=== PATIENT | male | born 1945 | race African-American/Black ===

== ENCOUNTER 2017-11-05 15:54 | Emergency (ER) | payer OTHER ==
--- OUTSIDE RECORDS SUMMARY | 2017-11-05 15:56 | XMS REPORT | Clinical Summary ---
:1945 Author Organization [facility] Address [address] [place] [address] Care Team Providers Name Role Phone Asked, No Pcp Primary Care Provider Unavailable Allergies No Known Allergies Current Medications Prescription Sig. Disp. Refills Start Date End Date Status levothyroxine Take 88 mcg by Active (SYNTHROID, mouth every LEVOTHROID) 88 MCG morning. tablet colestipol (COLESTID) Take 1 g by Active 1 gram tablet mouth 2 (two) times a day. carvedilol (COREG) Take 12.5 mg by Active 12.5 MG tablet mouth 2 (two) times a day with meals. doxazosin (CARDURA) 4 Take 4 mg by Active MG tablet mouth nightly. amLODIPine (NORVASC) Take 10 mg by Active 10 MG tablet mouth daily. atorvastatin (LIPITOR) Take 40 mg by Active 40 MG tablet mouth daily. aspirin (ECOTRIN) 81 Take 81 mg by Active MG enteric coated mouth daily. tablet sodium polystyrene Take 1 Package Active sulfonate 15 gram by mouth 2 powder in packet (two) times a week. esomeprazole (NexIUM) Take 40 mg by Active 40 MG capsule mouth daily before breakfast. insulin ASPART Inject under Active (NovoLOG) 100 unit/mL the skin 2 injection (two) times a day before meals. cholecalciferol, Take 1,000 Active vitamin D3, (VITAMIN Units by mouth D3) 1,000 unit tablet daily. iron-vitamin C 65 mg Take 1 tablet Active iron- 125 mg by mouth daily. tablet,delayed release (DR/EC) brinzolamide-brimonidi Apply 1 drop to Active ne (SIMBRINZA) 1-0.2 % eye 2 (two) drops,suspension times a day. methotrexate 2.5 MG Take 1 tablet 78 tablet 1 08/20/2016 11/18/2016 tablet (2.5 mg total) by mouth once a week for 90 days. Active Problems Problem Noted Date Systemic lupus erythematosus Last Assessment & Plan: Mr. 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 He has been stable on his current regimen for many many years now. I really think the biggest problem that he will encounter is his poorly-controlled diabetes mellitus. I see no evidence of significant lupus activity currently. He knows to get labs every 3 months because of the methotrexate. 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, bilateral Hypertension GERD without esophagitis Hypothyroidism Family History Medical History Relation Name Comments No Known Problems Brother Lupus Brother Hypertension Father Diabetes Mother Lupus Sister No Known Problems Sister No Known Problems Sister No Known Problems Sister Relation Name Status Comments Brother Alive Brother Brother Alive Father Mother Sister Alive Sister Alive Sister Alive Sister Alive Social History Tobacco Use Types Packs/Day Years Used Date Never Smoker Alcohol Use Drinks/Week oz/Week Comments No Sex Assigned at Date Recorded Not on file Last Filed Vital Signs Not on file Plan of Treatment Health Maintenance Due Date Last Done Comments FOOT EXAM 1954 OPHTHALMOLOGY EXAM 1954 URINE MICROALBUMIN 1954 COLONOSCOPY 1994 ZOSTER VACCINE 2004 PNEUMOCOCCAL POLYSACCHARIDE VACCINE AGE 65 AND OVER 2009 PNEUMOCOCCAL-13 2009 INFLUENZA VACCINE 03/02/2018 Results Not on fileafter 11/04/2016 Insurance Payer Benefit Plan / Group Subscriber ID Type Phone Address MEDICARE MEDICARE PART A AND B xxxxxxxxxx Medicare [place], [place] AETNA AETNA HMO,POS,EPO, MC/EC xxxxxxxxxx HMO Home: [address] [employer] [phone] [place], [place] [address]
[2017-11-05 16:35] LABS: Absolute Lymphocytes (CBC) 1.9 K/uL (0.7-4.9); Absolute Monocytes 0.6 K/uL (0.1-1.3); Absolute Neutrophil 2.3 K/uL (1.8-8.0); Basophils % 0.9 % (0-1.3); Eosinophils % 3.8 % (0-4.4); Hematocrit 28.5 % (39.6-49.0); Lymphocytes % 37.3 % (15.3-44.8); MCH 29.2 pg (27.0-35.0); MCV 94.8 fL (80-100); MPV 11.4 fL (7.6-11.3); RBC Red Blood Cell Count 3.01 M/uL (4.33-5.43)
[2017-11-05 16:40] LABS: Protime INR 0.96
[2017-11-05 17:04] LABS: Albumin 3.7 g/dL (3.2-5.5); Bilirubin Direct 0.2 mg/dL (0-0.2); Bilirubin Total 0.7 mg/dL (0.3-1.2); Protein, Total 7.5 g/dL (6.0-8.3)
[2017-11-05 17:13] LABS: Potassium 5.5 mEq/L (3.6-5.0)
--- NOTE | 2017-11-05 18:24 | EKG ---
Test Date: 2017-11-05 Test Time: 16:30:08 Hand Cell Tuber: AGUS MEASUREMENT RESULTS: Intervals: Rate: 57 SD: 192 QRSD: 86 QT: 452 QTc: 439 [place]: P: 59 SD: 192 QRS: -2 T: 37 INTERPRETIVE STATEMENTS: Sinus bradycardia with sinus arrhythmia Possible Left atrial enlargement Nonspecific T wave abnormality Abnormal ECG Compared to ECG 07/08/2014 06:24:26 Sinus rhythm no longer present Possible ischemia no longer present T-wave abnormality still present Electronically Signed On 11-05-17 18:23:55 CDT by Diego Oliveira
[2017-11-05] MEDS ORDERED: INSULIN -REGULAR HUMAN 50 UNIT/0.5 ML ML ONE (18:42)
[2017-11-05] MEDS ORDERED: ALBUTEROL 2.5 MG/3 ML NEB SOL ONE (18:42)
[2017-11-05] MEDS ORDERED: NA CHLORIDE 0.9% 1,000 ML ONE (18:43)
[2017-11-05] MEDS ORDERED: SOD POLYSTYREN SUL 15 GM/60 ML UCUP ONE (18:43)
[2017-11-05] MEDS ORDERED: NA CHLORIDE 0.9% 250 ML ONE (18:43)
[2017-11-05] MEDS ORDERED: D50W 25 GM/50 ML SYRINGE IV ONE ×2 (18:43→20:24)
--- NOTE | 2017-11-05 20:26 | ER ---
Nurse's Notes [facility] Name: Jozef Carbajal Age: 72 yrs Sex: Male : 1945 Arrival Date: 11/05/2017 Time: 15:56 Bed 30 Private MD: Diagnosis: Hyperkalemia Presentation: 11/05 16:02 Presenting complaint: Patient states: We went to Dr Vanessa and he did some labs la1 yesterday, they called and said to come to the ER because my potassium was very high. Transition of care: patient was not received from another setting of care. Onset of symptoms was November 05, 2017. Care prior to arrival: None. 16:02 Method Of Arrival: Wheelchair la1 16:02 Acuity: CARLOS MANUEL 3 la1 Historical: - Allergies: 16:03 No Known Allergies; la1 - PMHx: 16:03 Renal Disease; Hypertension; Lupus; Diabetes - NIDDM; la1 - Immunization history:: Adult Immunizations up to date. - Social history:: Smoking status: Patient/guardian denies using tobacco. Screenin:44 Abuse screen: Denies threats or abuse. Nutritional screening: No deficits noted. kb1 Tuberculosis screening: No symptoms or risk factors identified. Fall Risk IV access (20 points). Assessment: 16:44 Reassessment: Pt reports going to Dr. foster for routine checkup, was called and told kbRyan that he needed to come to ER for high potassium. General: Appears in no apparent distress. Behavior is calm, cooperative. Pain: Denies pain. Neuro: Level of Consciousness is awake, alert, obeys commands, Oriented to person, place, time, situation. Cardiovascular: Patient's skin is warm and dry. Respiratory: Airway is patent Respiratory effort is even, unlabored, Respiratory pattern is regular, symmetrical. GI: Abdomen is round. : No signs and/or symptoms were reported regarding the genitourinary system. 17:40 Reassessment: Patient appears in no apparent distress at this time. Patient and/or kb1 family updated on plan of care and expected duration. Pain level reassessed. Patient is alert, oriented x 3, equal unlabored respirations, skin warm/dry/pink. Kinta provided. 18:49 Reassessment: Patient appears in no apparent distress at this time. Patient and/or kb1 family updated on plan of care and expected duration. Pain level reassessed. Patient is alert, oriented x 3, equal unlabored respirations, skin warm/dry/pink. 20:01 Reassessment: Patient appears in no apparent distress at this time. Patient and/or kb1 family updated on plan of care and expected duration. Pain level reassessed. Patient is alert, oriented x 3, equal unlabored respirations, skin warm/dry/pink. 20:52 Reassessment: Patient appears in no apparent distress at this time. Patient and/or kb1 family updated on plan of care and expected duration. Pain level reassessed. Patient is alert, oriented x 3, equal unlabored respirations, skin warm/dry/pink. Patient states feeling better. Vital Signs: 16:03 BP 171 / 72; Pulse 67; Resp 16; Temp 97.6(TE); Pulse Ox 100% on R/A; Weight 87.09 kg; la1 Height 6 ft. 0 in. (182.88 cm); 17:00 BP 153 / 74; Pulse 50; Resp 18; Pulse Ox 100% ; kb1 18:00 BP 142 / 62; Pulse 45; Resp 20; Pulse Ox 100% ; kb1 20:02 BP 168 / 82; Pulse 43; Resp 18; Pulse Ox 96% ; kb1 20:08 kb1 20:52 BP 118 / 66; Pulse 55; Resp 18; Pulse Ox 100% ; kb1 16:03 Body Mass Index 26.04 (87.09 kg, 182.88 cm) la1 20:08 Blaise BENNETT notified of HR and BG kb1 ED Course: 15:56 Patient arrived in ED. as 16:03 Triage completed. la1 16:03 Arm band placed on right wrist. la1 16:05 Blaise Sylvester PA is PHCP. cp 16:05 Blaise Chung MD is Attending Physician. cp 16:08 Reshma Oliver RN is Primary Nurse. kb1 16:44 Patient has correct armband on for positive identification. Placed in gown. Bed in low kb1 position. Call light in reach. Side rails up X 1. playground monitor on. Pulse ox on. NIBP on. 16:44 No provider procedures requiring assistance completed. Inserted saline lock: 20 gauge kb1 in right antecubital area, using aseptic technique. Blood collected. 20:23 Justin Vanessa MD is Referral Physician. cp 20:53 IV discontinued, intact, bleeding controlled, No redness/swelling at site. Pressure kb1 dressing applied. Administered Medications: 18:30 Drug: NS 0.9% 250 ml Route: IV; Rate: bolus; Site: right antecubital; kb1 18:32 Drug: D50W 50 ml Route: IVP; Site: right antecubital; kb1 20:55 Follow up: Response: No adverse reaction kb1 18:41 Drug: Albuterol 2.5 mg Route: Inhalation; kb1 18:42 Drug: Insulin Regular Human 10 units {Co-Signature: ss (Arlene Espitia RN).} Route: IVP; kb1 Site: right antecubital; 20:55 Follow up: Response: No adverse reaction kb1 18:42 Drug: Kayexalate 30 grams Route: PO; kb1 20:55 Follow up: Response: Marked relief of symptoms kb1 18:42 Drug: NS 0.9% 1000 ml Route: IV; Rate: 100 ml/hr; Site: right antecubital; kb1 20:09 Drug: D50W 50 ml Route: IVP; Site: right antecubital; kb1 20:53 Follow up: Response: Blood sugar is elevated kb1 Point of Care Testing: Blood Glucose: 20:04 Blood Glucose: 46 mg/dL; dh3 20:52 Blood Glucose: 117 mg/dL; kb1 20:52 Blaise BENNETT notified of BG kb1 Ranges: Outcome: 20:25 Discharge ordered by MD. cp 20:54 Discharged to home ambulatory, with family. kb1 20:54 Condition: stable 20:54 Discharge instructions given to patient, family, Instructed on discharge instructions, follow up and referral plans. Demonstrated understanding of instructions, follow-up care. 20:56 Patient left the ED. kb1 Signatures: Kyra Hanks Lee RN RN la1 Blaise Sylvester PA PA cp Herrera, Deanna 3 Reshma Oliver RN RN kb1 Arlene Espitia RN ss Corrections: (The following items were deleted from the chart) 20:55 08:30 NS 0.9% 250 ml IV at bolus in right antecubital kb1 kb1
--- NOTE | 2017-11-05 20:26 | EDPHYS ---
Physician Documentation [facility] Name: Jozef Carbajal Age: 72 yrs Sex: Male : 1945 Arrival Date: 11/05/2017 Time: 15:56 Bed 30 Private MD: Blaise Conway HPI: 11/05 16:10 This 72 yrs old Black Male presents to ER via Wheelchair with complaints of Abnormal cp Lab Results. 16:10 elevated potassium. reports having labs drawn by office of DR Vanessa and being told cp potassium level was elevated. No complaints expressed. Historical: - Allergies: 16:03 No Known Allergies; la1 - PMHx: 16:03 Renal Disease; Hypertension; Lupus; Diabetes - NIDDM; la1 - Immunization history:: Adult Immunizations up to date. - Social history:: Smoking status: Patient/guardian denies using tobacco. ROS: 16:20 Constitutional: Negative for body aches, chills, fever, poor PO intake. cp 16:20 Eyes: Negative for injury, pain, redness, and discharge. cp 16:20 ENT: Negative for drainage from ear(s), ear pain, sore throat, difficulty swallowing, difficulty handling secretions. 16:20 Cardiovascular: Negative for chest pain, edema, palpitations. 16:20 Respiratory: Negative for cough, shortness of breath, wheezing. 16:20 Abdomen/GI: Negative for abdominal pain, nausea, vomiting, and diarrhea, constipation, anorexia, black/tarry stool, rectal bleeding. 16:20 Skin: Negative for cellulitis, rash. 16:20 Neuro: Negative for altered mental status, headache, numbness, seizure activity, syncope, near syncope, weakness. 16:20 All other systems are negative. Exam: 16:25 Constitutional: The patient appears in no acute distress, alert, awake, cp non-diaphoretic, non-toxic, well developed, well nourished. 16:25 Head/Face: Normocephalic, atraumatic. cp 16:25 Eyes: Periorbital structures: appear normal, Pupils: equal, round, and reactive to light and accomodation, Extraocular movements: intact throughout, Conjunctiva: normal, no exudate, no injection, Sclera: no appreciated abnormality, Lids and lashes: appear normal, bilaterally. 16:25 ENT: External ear(s): are unremarkable, Ear canal(s): are normal, clear, TM's: dullness, bilaterally, Nose: is normal, Mouth: Lips: moist, Oral mucosa: pink and intact, moist, Posterior pharynx: Airway: no evidence of obstruction, patent, Tonsils: are normal in appearance, Uvula: midline, swelling, is not appreciated, erythema, is not appreciated, exudate, is not appreciated, Voice: is normal. 16:25 Neck: ROM/movement: is normal, is supple, without pain, no range of motions limitations, no nuchal rigidity. 16:25 Chest/axilla: Inspection: normal, Palpation: is normal, no crepitus, no tenderness. 16:25 Cardiovascular: Rate: normal, Rhythm: regular, Edema: is not appreciated, JVD: is not appreciated. 16:25 Respiratory: the patient does not display signs of respiratory distress, Respirations: normal, no use of accessory muscles, no retractions, no splinting, no tachypnea, labored breathing, is not present, Breath sounds: are clear throughout, no decreased breath sounds, no stridor, no wheezing. 16:25 Abdomen/GI: Inspection: abdomen appears normal, Bowel sounds: active, all quadrants, Palpation: abdomen is soft and non-tender, in all quadrants, rebound tenderness, is not appreciated, voluntary guarding, is not appreciated, involuntary guarding, is not appreciated. 16:25 Back: pain, is absent, ROM is normal. 16:25 Skin: cellulitis, is not appreciated, no rash present. 16:25 Neuro: Orientation: to person, place \T\ time. Mentation: is normal, Cerebellar function: is grossly normal, Motor: moves all fours, strength is normal, Sensation: no obvious gross deficits. 16:35 ECG was reviewed by the Attending Physician. cp Vital Signs: 16:03 BP 171 / 72; Pulse 67; Resp 16; Temp 97.6(TE); Pulse Ox 100% on R/A; Weight 87.09 kg; la1 Height 6 ft. 0 in. (182.88 cm); 17:00 BP 153 / 74; Pulse 50; Resp 18; Pulse Ox 100% ; kb1 18:00 BP 142 / 62; Pulse 45; Resp 20; Pulse Ox 100% ; kb1 20:02 BP 168 / 82; Pulse 43; Resp 18; Pulse Ox 96% ; kb1 20:08 kb1 20:52 BP 118 / 66; Pulse 55; Resp 18; Pulse Ox 100% ; kb1 16:03 Body Mass Index 26.04 (87.09 kg, 182.88 cm) la1 20:08 Blaise BENNETT notified of HR and BG kb1 MDM: 16:05 Patient medically screened. cp 17:00 Differential Diagnosis electrolyte abnormality, cardiac arrythmia, ESRD. cp 20:23 Data reviewed: vital signs, nurses notes, lab test result(s), EKG, radiologic studies, cp and as a result, I will discharge patient. 20:23 Test interpretation: by ED physician or midlevel provider: ECG. cp 20:23 Response to treatment: Improved. cp 20:23 Counseling: I had a detailed discussion with the patient and/or guardian regarding: the cp historical points, exam findings, and any diagnostic results supporting the discharge/admit diagnosis, lab results, the need for outpatient follow up, an clinical engineer, to return to the emergency department if symptoms worsen or persist or if there are any questions or concerns that arise at home. 11/05 16:15 Order name: Basic Metabolic Panel; Complete Time: 17:14 cp 11/05 17:14 Interpretation: Normal except: GLUC 134; BUN 59; CRE 3.21; GFR 23; K 5.5. cp 11/05 16:15 Order name: CBC with Diff; Complete Time: 16:58 cp 11/05 16:58 Interpretation: Normal except: RBC 3.01; HGB 8.8; HCT 28.5; MCHC 30.8; RDW 17.1; MPV cp 11.4. 11/05 16:15 Order name: LFT's; Complete Time: 17:14 cp 11/05 17:07 Interpretation: Normal except: GLOB 3.8; A/G 1.0. cp 11/05 16:15 Order name: Magnesium; Complete Time: 17:14 cp 11/05 16:15 Order name: PT-INR; Complete Time: 16:58 cp 11/05 20:13 Interpretation: Reviewed. cp 11/05 16:15 Order name: Ptt, Activated; Complete Time: 16:58 cp 11/05 19:35 Order name: Potassium cp 11/05 19:35 Order name: Potassium; Complete Time: 20:21 EDMS 11/05 20:22 Interpretation: Within normal limits: K 4.7. cp 11/05 20:05 Order name: Glucose, Ancillary Testing; Complete Time: 20:13 EDMS 11/05 20:13 Interpretation: GLUC,ANCIL 46; Reviewed. cp 11/05 20:50 Order name: Glucose, Ancillary Testing EDMS 11/05 16:06 Order name: EKG; Complete Time: 16:06 cp 11/05 16:06 Order name: EKG - Nurse/Tech; Complete Time: 16:51 cp 11/05 16:15 Order name: Cardiac monitoring; Complete Time: 16:51 cp 11/05 16:15 Order name: IV Saline Lock; Complete Time: 16:51 cp 11/05 16:15 Order name: Labs collected and sent; Complete Time: 16:51 cp 11/05 16:15 Order name: O2 Per Protocol; Complete Time: 16:51 cp 11/05 16:15 Order name: O2 Sat Monitoring; Complete Time: 16:51 cp EC:35 Rate is 57 beats/min. Rhythm is regular. KS interval is normal. QRS interval is normal. cp QT interval is normal. T waves are Inverted in leads II, III, aVF, V5, V6. No ST changes noted. Interpreted by me. Reviewed by me. Administered Medications: 18:30 Drug: NS 0.9% 250 ml Route: IV; Rate: bolus; Site: right antecubital; [facility] 18:32 Drug: D50W 50 ml Route: IVP; Site: right antecubital; [facility] 20:55 Follow up: Response: No adverse reaction kb1 18:41 Drug: Albuterol 2.5 mg Route: Inhalation; kb1 18:42 Drug: Insulin Regular Human 10 units {Co-Signature: ss (Arlene Espitia RN).} Route: IVP; [facility] Site: right antecubital; 20:55 Follow up: Response: No adverse reaction kb1 18:42 Drug: Kayexalate 30 grams Route: PO; kb1 20:55 Follow up: Response: Marked relief of symptoms [facility] 18:42 Drug: NS 0.9% 1000 ml Route: IV; Rate: 100 ml/hr; Site: right antecubital; kb1 20:09 Drug: D50W 50 ml Route: IVP; Site: right antecubital; kb1 20:53 Follow up: Response: Blood sugar is elevated kb1 Point of Care Testing: Blood Glucose: 20:04 Blood Glucose: 46 mg/dL; dh3 20:52 Blood Glucose: 117 mg/dL; kb1 20:52 Blaise BENNETT notified of BG kb1 Ranges: Critical Glucose Levels:Adult <50 mg/dl or >400 mg/dl <40 mg/dl or >180 mg/dl Disposition: 11/05/17 20:25 Discharged to Home. Impression: Hyperkalemia. - Condition is Stable. - Discharge Instructions: Hyperkalemia. - Medication Reconciliation Form, Thank You Letter, Antibiotic Education, Prescription Opioid Use form. - Follow up: Justin Vanessa MD; When: 11-08-2017, recheck serum potassium; Reason: Recheck today's complaints. - Problem is new. - Symptoms have improved. Addendum: 11/08/2017 08:38 Co-signature as Attending Physician, Blaise Chung MD I agree with the assessment and c reina plan of care. Signatures: Dispatcher [employer] EDIA Blaise Chung MD MD cha Attema, Lee, RN RN la1 Blaise Sylvester PA PA cp Reshma Oliver RN RN kb1 Arlene Espitia RN ss Corrections: (The following items were deleted from the chart) 11/05 17:14 17:06 Normal except: GLUC 134; BUN 59; CRE 3.21; GFR 23. cp cp
[2017-11-05 21:04] VITALS: TEMP 97.6
[2017-11-05 21:09] VITALS: BP 118/66; O2SAT 100
== END 2017-11-05 20:56 | disposition home or self-care (01) ==
LOC: ER 15:54
DX: E87.5 Hyperkalemia (principal); I10 Essential (primary) hypertension; E11.9 Type 2 diabetes mellitus without complications
CPT/HCPCS: 36415; 80048; 80076; 82962 ×2; 83735; 84132; 85025; 85610; 85730; 93005; 96374; 96375; 99285; J7030

== ENCOUNTER 2017-12-26 09:30 | Emergency (ER) | payer OTHER ==
--- OUTSIDE RECORDS SUMMARY | 2017-12-26 09:31 | XMS REPORT | Clinical Summary ---
:1945 Author Organization [facility] Address [address] [place] [address] Care Team Providers Name Role Phone Asked, No Pcp Primary Care Provider Unavailable Allergies No Known Allergies Current Medications Prescription Sig. Disp. Refills Start Date End Date Status levothyroxine (SYNTHROID, Take 88 mcg by Active LEVOTHROID) 88 MCG tablet mouth every morning. colestipol (COLESTID) 1 Take 1 g by mouth 2 Active gram tablet (two) times a day. carvedilol (COREG) 12.5 Take 12.5 mg by Active MG tablet mouth 2 (two) times a day with meals. doxazosin (CARDURA) 4 MG Take 4 mg by mouth Active tablet nightly. amLODIPine (NORVASC) 10 Take 10 mg by mouth Active MG tablet daily. atorvastatin (LIPITOR) 40 Take 40 mg by mouth Active MG tablet daily. aspirin (ECOTRIN) 81 MG Take 81 mg by mouth Active enteric coated tablet daily. sodium polystyrene Take 1 Package by Active sulfonate 15 gram powder mouth 2 (two) times in packet a week. esomeprazole (NexIUM) 40 Take 40 mg by mouth Active MG capsule daily before breakfast. insulin ASPART (NovoLOG) Inject under the Active 100 unit/mL injection skin 2 (two) times a day before meals. cholecalciferol, vitamin Take 1,000 Units by Active D3, (VITAMIN D3) 1,000 mouth daily. unit tablet iron-vitamin C 65 mg Take 1 tablet by Active iron- 125 mg mouth daily. tablet,delayed release (DR/EC) brinzolamide-brimonidine Apply 1 drop to eye Active (SIMBRINZA) 1-0.2 % 2 (two) times a drops,suspension day. Active Problems Problem Noted Date Systemic lupus [...] Health Maintenance Due Date Last Done Comments DIABETIC FOOT EXAM 1954 DIABETIC RETINAL EYE EXAM 1954 URINE MICROALBUMIN 1954 COLON CANCER SCREENING 1994 SHINGRIX VACCINE (#1) 1994 ZOSTER VACCINE 2004 PNEUMOCOCCAL POLYSACCHARIDE VACCINE AGE 65 AND OVER 2009 PNEUMOCOCCAL-13 2009 INFLUENZA VACCINE 03/02/2018 Results Not on fileafter 12/25/2016 Insurance Payer Benefit Plan / Group Subscriber ID Type Phone Address MEDICARE MEDICARE PART A AND B xxxxxxxxxx Medicare [place], [place] AETNA AETNA HMO,POS,EPO, MC/EC xxxxxxxxxx HMO Home: [address] [employer] [phone] [place], [place] [id number]
[2017-12-26 11:01] LABS: Absolute Lymphocytes (CBC) 1.4 K/uL (0.7-4.9); Absolute Monocytes 0.3 K/uL (0.1-1.3); Absolute Neutrophil 3.4 K/uL (1.8-8.0); Basophils % 0.2 % (0-1.3); Eosinophils % 3.3 % (0-4.4); Hematocrit 23.4 % (39.6-49.0); Lymphocytes % 27.5 % (15.3-44.8); MCH 29.9 pg (27.0-35.0); MCV 94.8 fL (80-100); MPV 11.2 fL (7.6-11.3); Monocytes % 4.8 % (3.3-12.3); RBC Red Blood Cell Count 2.47 M/uL (4.33-5.43)
[2017-12-26 11:29] LABS: Anisocytosis 1+; Blood Morphology Comment NOTED (NOT SEEN); Hypochromasia 1+; Ovalocytes SLIGHT; Platelet Estimate DECR; Urine White Blood Cell Casts OK
--- NOTE | 2017-12-26 11:36 | RAD REPORT ---
EXAM DESCRIPTION: RAD - Foot Left 3 View - 12/26/2017 10:59 am CLINICAL HISTORY: Diabetic patient, soft tissue wound COMPARISON: None. FINDINGS: No acute or destructive bone process. No evidence for osteomyelitis though this can exist prior to radiographic bone destruction. No fracture, dislocation or periosteal reaction. Patient has a flattened plantar arch but no Charcot joint changes. At the first toe wound site there is no air or foreign body. IMPRESSION: No air or foreign body in the soft tissues. No acute or destructive bone finding.
--- NOTE | 2017-12-26 12:15 | ER ---
Nurse's Notes [facility] Name: Jozef Carbajal Age: 72 yrs Sex: Male : 1945 Arrival Date: 12/26/2017 Time: 09:33 Bed 20 Private MD: Justin Vanessa C Diagnosis: Cellulitis of left toe;Anemia in chronic kidney disease Presentation: 12/26 10:01 Presenting complaint: Patient states: pulled some skin off the bottom of his left big em toe about a week ago, started bleeding 3 days ago, denies fever. Transition of care: patient was not received from another setting of care. Onset of symptoms was December 23, 2017. Risk Assessment: Do you want to hurt yourself or someone else? Patient reports no desire to harm self or others. Care prior to arrival: None. 10:01 Method Of Arrival: Wheelchair em 10:01 Acuity: CARLOS MANUEL 3 iw 10:01 Initial Sepsis Screen: Does the patient meet any 2 criteria? No. Patient's initial iw sepsis screen is negative. Does the patient have a suspected source of infection? No. Patient's initial sepsis screen is negative. Historical: - Allergies: 10:04 No Known Allergies; em - Home Meds: 10:16 levothyroxine 88 mcg tab 1 tab once daily [Active]; methotrexate sodium 2.5 mg Oral tab em [Active]; doxazosin 4 mg oral tab 2 tabs once daily [Active]; folic acid 1 mg Oral tab 1 tab once daily [Active]; carvedilol 3.125 mg oral tab 1 tab 2 times per day [Active]; aspirin 81 mg Oral TbEC 1 tab once daily [Active]; atorvastatin 20 mg oral tab 1 tab once daily [Active]; hydralazine 10 mg Oral tab [Active]; - PMHx: 10:04 Diabetes - NIDDM; Hypertension; Lupus; Renal Disease; em 10:21 Anemia; Hypothyroidism; em - PSHx: 10:04 Cholecystectomy; em - Immunization history:: Adult Immunizations up to date. - Social history:: Smoking status: Patient/guardian denies using tobacco. - Ebola Screening: : Ebola Screening: No symptoms or risks identified at this time. Screenin:06 Abuse screen: Denies threats or abuse. Nutritional screening: No deficits noted. em Tuberculosis screening: No symptoms or risk factors identified. Fall Risk None identified. Assessment: 10:07 General: Appears in no apparent distress. comfortable, Behavior is calm, cooperative. em Pain: Complains of pain in plantar aspect of left first toe Pain currently is 2 out of 10 on a pain scale. Neuro: Level of Consciousness is awake, alert, obeys commands, Oriented to person, place, time, situation. Cardiovascular: Capillary refill < 3 seconds Patient's skin is warm and dry. Respiratory: Airway is patent Respiratory effort is even, unlabored, Respiratory pattern is regular, symmetrical. GI: Abdomen is flat. : No signs and/or symptoms were reported regarding the genitourinary system. EENT:. Derm: Wound noted plantar aspect of left first toe. Musculoskeletal: Range of motion: intact in all extremities. 10:20 Reassessment: Patient appears in no apparent distress at this time. I agree with above iw assessment by Robert Esteves LVN. 11:00 Reassessment: Patient appears in no apparent distress at this time. Patient and/or em family updated on plan of care and expected duration. Pain level reassessed. Patient is alert, oriented x 3, equal unlabored respirations, skin warm/dry/pink. 12:00 Reassessment: Patient appears in no apparent distress at this time. Patient and/or em family updated on plan of care and expected duration. Pain level reassessed. Patient is alert, oriented x 3, equal unlabored respirations, skin warm/dry/pink. toe soaked and cleaned with chlorhexidine, tolerated well, dressed with 4 x 4. 12:48 Reassessment: Patient appears in no apparent distress at this time. Patient and/or em family updated on plan of care and expected duration. Pain level reassessed. Patient is alert, oriented x 3, equal unlabored respirations, skin warm/dry/pink. orthostatics completed, tolerated well. Vital Signs: 10:04 BP 151 / 76; Pulse 74; Resp 16; Temp 99.0(O); Pulse Ox 100% on R/A; Weight 87.54 kg; em Height 6 ft. 0 in. (182.88 cm); Pain 2/10; 11:00 BP 167 / 55; Pulse 65; Resp 17; Pulse Ox 98% on R/A; em 11:29 BP 166 / 69; Pulse 51; Resp 17; Pulse Ox 100% on R/A; tw2 12:53 BP 161 / 76 Supine; Pulse 54; em 12:53 BP 181 / 58 Sitting; Pulse 64; em 12:53 BP 165 / 51 Standing; Pulse 62; em 10:04 Body Mass Index 26.18 (87.54 kg, 182.88 cm) em ED Course: 09:33 Patient arrived in ED. mr 09:34 Justin Vanessa MD is Private Physician. mr 09:55 Blaise Sylvester PA is PHCP. cp 09:55 Jacobo Milton MD is Attending Physician. cp 10:01 Robert Esteves LVN is Primary Nurse. em 10:05 Patient has correct armband on for positive identification. Bed in low position. Call em light in reach. Adult w/ patient. 10:09 Arm band placed on. em 10:20 Triage completed. iw 10:31 Initial lab(s) drawn, by me, sent to lab. Inserted saline lock: 22 gauge in left 5 antecubital area, using aseptic technique. Blood collected. 10:32 Placed in gown. Warm blanket given. Pulse ox on. NIBP on. 5 10:59 XRAY Foot LEFT 3 View In Process Unspecified. EDMS 12:13 Justin Vanessa MD is Referral Physician. cp 12:19 Repeat lab(s) drawn. by me. 5 12:21 CXR XRAY In Process Unspecified. EDMS 13:11 No provider procedures requiring assistance completed. IV discontinued, intact, em bleeding controlled, No redness/swelling at site. Pressure dressing applied. Administered Medications: No medications were administered Outcome: 12:15 Discharge ordered by MD. cp 13:12 Discharged to home ambulatory. em 13:12 Condition: good 13:12 Discharge instructions given to patient, family, Instructed on discharge instructions, follow up and referral plans. medication usage, Demonstrated understanding of instructions, follow-up care, medications, Prescriptions given X 2. 13:13 Patient left the ED. em Signatures: Dispatcher [employer] EDRI Samara Delarosa EstevesRobert, JOMAR NAYAKN em Merline Cotton RN RN Blaise Sylvester PA PA cp Wise, Tara, RN RN [facility] Samara Hanks [facility] Corrections: (The following items were deleted from the chart) 10:06 10:01 Presenting complaint: Patient states: pulled some skin off the bottom of his left em toe about a week ago, started bleeding 3 days ago, denies fever em
--- NOTE | 2017-12-26 12:15 | EDPHYS ---
Physician Documentation [facility] Name: Jozef Carbajal Age: 72 yrs Sex: Male : 1945 Arrival Date: 12/26/2017 Time: 09:33 Bed 20 Private MD: Justin Vanessa C ED Physician Jacobo Milton HPI: 12/26 10:15 This 72 yrs old Black Male presents to ER via Wheelchair with complaints of Foot Pain. cp 10:15 The patient presents with pain, that is acute. The complaints affect the plantar aspect cp of left first toe. Onset: The symptoms/episode began/occurred 1 week(s) ago. 10:15 Associated signs and symptoms: Pertinent negatives calf tenderness, fever, numbness, cp drainage. 10:15 Treatment prior to arrival includes: no previous treatment. Severity of symptoms: in cp the emergency department the symptoms are unchanged, despite home interventions. Historical: - Allergies: 10:04 No Known Allergies; em - Home Meds: 10:16 levothyroxine 88 mcg tab 1 tab once daily [Active]; methotrexate sodium 2.5 mg Oral tab em [Active]; doxazosin 4 mg oral tab 2 tabs once daily [Active]; folic acid 1 mg Oral tab 1 tab once daily [Active]; carvedilol 3.125 mg oral tab 1 tab 2 times per day [Active]; aspirin 81 mg Oral TbEC 1 tab once daily [Active]; atorvastatin 20 mg oral tab 1 tab once daily [Active]; hydralazine 10 mg Oral tab [Active]; - PMHx: 10:04 Diabetes - NIDDM; Hypertension; Lupus; Renal Disease; em 10:21 Anemia; Hypothyroidism; em - PSHx: 10:04 Cholecystectomy; em - Immunization history:: Adult Immunizations up to date. - Social history:: Smoking status: Patient/guardian denies using tobacco. - Ebola Screening: : Ebola Screening: No symptoms or risks identified at this time. ROS: 10:20 Constitutional: Negative for body aches, chills, fever, poor PO intake. cp 10:20 Eyes: Negative for injury, pain, redness, and discharge. cp 10:20 ENT: Negative for drainage from ear(s), ear pain, sore throat, difficulty swallowing, difficulty handling secretions. 10:20 Cardiovascular: Negative for chest pain, edema, palpitations. 10:20 Respiratory: Negative for cough, shortness of breath, wheezing. 10:20 Abdomen/GI: Negative for abdominal pain, nausea, vomiting, and diarrhea, black/tarry stool, rectal bleeding. 10:20 MS/extremity: Positive for pain, swelling, tenderness, of the plantar aspect of left first toe. 10:20 Skin: Negative for rash. 10:20 Neuro: Negative for altered mental status, dizziness, headache, syncope, near syncope, weakness. 10:20 All other systems are negative. Exam: 10:28 Constitutional: The patient appears in no acute distress, alert, awake, non-toxic, well cp developed, well nourished. 10:28 Head/Face: Normocephalic, atraumatic. cp 10:28 Eyes: Periorbital structures: appear normal, Pupils: equal, round, and reactive to light and accomodation, Extraocular movements: intact throughout, Conjunctiva: normal, no exudate, no injection, Lids and lashes: appear normal, bilaterally. 10:28 ENT: External ear(s): are unremarkable, Ear canal(s): are normal, clear, TM's: bulging, is not appreciated, bilaterally, dullness, bilaterally, erythema, is not appreciated, bilaterally, Nose: is normal, Mouth: Lips: moist, Oral mucosa: pink and intact, moist, Posterior pharynx: is normal, airway is patent, no erythema, no exudate. 10:28 Neck: ROM/movement: is normal, is supple, without pain, no range of motions limitations, no meningismus, no nuchal rigidity. 10:28 Chest/axilla: Inspection: normal, Palpation: is normal, no crepitus, no tenderness. 10:28 Cardiovascular: Rate: normal, Rhythm: regular, Edema: is not appreciated, JVD: is not appreciated. 10:28 Respiratory: the patient does not display signs of respiratory distress, Respirations: normal, no use of accessory muscles, no retractions, no splinting, no tachypnea, labored breathing, is not present, Breath sounds: are clear throughout, no decreased breath sounds, no stridor, no wheezing. 10:28 Abdomen/GI: Inspection: abdomen appears normal, Bowel sounds: active, all quadrants, Palpation: abdomen is soft and non-tender, in all quadrants, rebound tenderness, is not appreciated, voluntary guarding, is not appreciated, involuntary guarding, is not appreciated. 10:28 Back: pain, is absent, ROM is normal. 10:28 Musculoskeletal/extremity: Extremities: grossly normal except: noted in the plantar aspect of left first toe: swelling, tenderness, noted pressure wound, Pulses: noted to be 1+ in the left dorsalis pedis artery, the left foot decreased sensation. Vital Signs: 10:04 BP 151 / 76; Pulse 74; Resp 16; Temp 99.0(O); Pulse Ox 100% on R/A; Weight 87.54 kg; em Height 6 ft. 0 in. (182.88 cm); Pain 2/10; 11:00 BP 167 / 55; Pulse 65; Resp 17; Pulse Ox 98% on R/A; em 11:29 BP 166 / 69; Pulse 51; Resp 17; Pulse Ox 100% on R/A; tw2 12:53 BP 161 / 76 Supine; Pulse 54; em 12:53 BP 181 / 58 Sitting; Pulse 64; em 12:53 BP 165 / 51 Standing; Pulse 62; em 10:04 Body Mass Index 26.18 (87.54 kg, 182.88 cm) em MDM: 09:55 Patient medically screened. 12:15 Data reviewed: vital signs, nurses notes, lab test result(s), radiologic studies, plain cp films, and as a result, I will discharge patient. 12:15 Test interpretation: by ED physician or midlevel provider: plain radiologic studies. 12/26 10:08 Order name: CBC with Diff; Complete Time: 12:02 12/26 11:13 Interpretation: Normal except: RBC 2.47; HGB 7.4; HCT 23.4; MCHC 31.6; PLT 59; RDW 19.2. 12/26 10:08 Order name: BMP; Complete Time: 11:07 12/26 11:13 Interpretation: Normal except: CL 117; CO2 19; BUN 62; CRE 3.49; GFR 21. 12/26 11:29 Order name: CBC Smear Scan; Complete Time: 12:02 EDIA 12/26 10:08 Order name: XRAY Foot LEFT 3 View; Complete Time: 12:02 cp 12/26 10:08 Order name: Wound Care: soak and clean foot wound; Complete Time: 11:46 cp 12/26 11:43 Order name: CXR XRAY; Complete Time: 12:37 cp 12/26 12:15 Order name: Orthostatics; Complete Time: 12:54 cp Administered Medications: No medications were administered Disposition: 12/26/17 12:15 Discharged to Home. Impression: Cellulitis of left toe, Anemia in chronic kidney disease. - Condition is Stable. - Discharge Instructions: Anemia, Nonspecific, Cellulitis. - Prescriptions for Augmentin 875- 125 mg Oral Tablet - take 1 tablet by ORAL route every 12 hours for 10 days; 20 tablet. ketoconazole 2 % Topical cream - apply 1 applicatorful by TOPICAL route 2 times per day As needed apply to groin area as directed; 30 gram. - Medication Reconciliation Form, Thank You Letter, Antibiotic Education, Prescription Opioid Use form. - Follow up: Justin Vanessa MD; When: 2 - 3 days; Reason: Recheck today's complaints. - Problem is new. - Symptoms are unchanged. Addendum: 01/03/2018 11:53 Co-signature as Attending Physician, Jacobo Milton MD Available for consultation at p s1 all times. . Signatures: Dispatcher [employer] EDIA Robert Esteves, LABORATORY INSPECTOR LABORATORY INSPECTOR em Blaise Sylvester PA PA cp Jacobo Milton MD MD ps1 Corrections: (The following items were deleted from the chart) 12/26 12:09 11:44 PTT, ACTIVATED+COAG.LAB.BRZ ordered. EDIA EDIA 12: 11:44 PROTIME (+INR)+COAG.LAB.BRZ ordered. EDIA EDIA 12: 11:44 TYPE AND SCREEN+BB.LAB.BRZ ordered. EDIA EDIA 13:13 12:15 12/26/2017 12:15 Discharged to Home. Impression: Cellulitis of left toe; Anemia em in chronic kidney disease. Condition is Stable. Forms are Medication Reconciliation Form, Thank You Letter, Antibiotic Education, Prescription Opioid Use. Follow up: Justin Vanessa; When: 2 - 3 days; Reason: Recheck today's complaints. Problem is new. Symptoms are unchanged. cp
--- NOTE | 2017-12-26 12:36 | RAD REPORT ---
EXAM DESCRIPTION: RAD - Chest Single View - 12/26/2017 12:21 pm CLINICAL HISTORY: Shortness of breath, anemia COMPARISON: July 2014 TECHNIQUE: AP portable chest image was obtained 1216 hours . FINDINGS: Mildly prominent interstitial markings are present similar to the comparison. No focal con solidation or mass. Cardiomegaly is present but acute failure or volume overload are not suspected. N o measurable pleural effusion and no pneumothorax. No gross bony abnormality seen. No acute aortic fi nding. Numerous soft tissue calcifications are present. IMPRESSION: Cardiomegaly is present new from prior imaging. Significant acute failure or volume over load are doubtful. Chronic interstitial lung disease not substantially different from comparison.
[2017-12-26 13:24] VITALS: TEMP 99
[2017-12-26 13:27] VITALS: O2SAT 100
[2017-12-26 13:28] VITALS: BP 165/51
== END 2017-12-26 13:13 | disposition home or self-care (01) ==
LOC: ER 09:30
DX: L03.032 Cellulitis of left toe (principal); N18.9 Chronic kidney disease, unspecified; D63.1 Anemia in chronic kidney disease; E11.9 Type 2 diabetes mellitus without complications; I10 Essential (primary) hypertension; E03.9 Hypothyroidism, unspecified
CPT/HCPCS: 36415; 71045; 80048; 85025; 99284

== ENCOUNTER 2018-01-25 18:01 | Observation (INO) | payer OTHER ==
--- OUTSIDE RECORDS SUMMARY | 2018-01-25 18:28 | XMS REPORT | Clinical Summary ---
:1945 Author Organization [facility] Address [address] [place] [address] Care Team Providers Name Role Phone Asked, [...] shoulders, bilateral Hypertension GERD without esophagitis Hypothyroidism Encounters Date Type Specialty Care Team Description 01/03/2018 Refill Rheumatology Juan Pablo Branham MD after 01/24/2017 Family History Medical History Relation Name Comments [...] INFLUENZA VACCINE 03/02/2018 Results Not on fileafter 01/24/2017 Insurance Payer Benefit Plan / Group Subscriber ID Type Phone Address MEDICARE MEDICARE PART A AND B xxxxxxxxxx Medicare [place], [place] AETNA AETNA HMO,POS,EPO, MC/EC xxxxxxxxxx HMO Home: [address] [phone] [place], [place] [id number]
[2018-01-25] MEDS ORDERED: GLUCAGON 1 MG/VIAL IM PRN (18:31)
[2018-01-25] MEDS ORDERED: D50W 25 GM/50 ML SYRINGE IV PRN (18:31)
[2018-01-25] MEDS ORDERED: DIPHENHYDRAMINE 25 MG TAB/CAP PO PRN (18:35)
[2018-01-25] MEDS ORDERED: ACETAMINOPHEN 500 MG TAB PO PRN (18:36)
[2018-01-25] MEDS ORDERED: NA CHLORIDE 0.9% 1,000 ML IV SCH (19:00)
[2018-01-25 19:04] LABS: RBC Red Blood Cell Count 2.12 M/uL (4.33-5.43)
[2018-01-25 19:48] LABS: Folic Acid, (Folate) > 20.0 ng/mL (3.1-17.5); Transferrin 134 mg/dL (200-360)
[2018-01-25] MEDS: INSULIN -REGULAR HUMAN 50 UNIT/0.5 ML ML SQ SCH (21:00)
[2018-01-25] MEDS: SOD POLYSTYREN SUL 15 GM/60 ML UCUP PO SCH (21:45)
[2018-01-25] MEDS ORDERED: NA CHLORIDE 0.9% 50 ML ONE (22:24)
[2018-01-26 00:24] VITALS: BMI 25.7
[2018-01-26 01:28] VITALS: O2SAT 100
[2018-01-26] MEDS ORDERED: FUROSEMIDE 40 MG/4 ML VIAL IV ONE (03:08)
[2018-01-26] MEDS ORDERED: AMLODIPINE 5 MG TAB PO ONE (03:09)
--- NOTE | 2018-01-26 04:46 | HP ---
Date of Admission: 01/25/2018 Chief Complaint: Anemia. History Of Present Illness: A 72-year-old male patient, who was seen yesterday at office for his rou ynes followup visit and his routine blood work was done on outpatient basis yesterday; results came b ack today with his hemoglobin 6.8, so patient was contacted requesting admission to the hospital. He came into office with his and, after results were discussed with both of them, decision was mad e to admit him to the hospital for blood transfusion. He denies any blood in stool. No vomiting, no diarrhea. Denies any chest pain or shortness of breath. He denies any change in bowel habits. Medications: Amlodipine 10 mg daily, aspirin 81 mg daily, atorvastatin 20 mg daily, carvedilol 6.25 mg 2 times a day, doxazosin 4 mg 2 times a day, ferrous sulfate 325 mg p.o. daily, folic acid 1 mg p. o. daily, hydralazine 10 mg p.o. 2 times a day, levothyroxine 88 mcg p.o. daily, Kayexalate 30 g powd er p.o. every other day, vitamin D3 2000 units daily. Review of Systems: Hematology: As mentioned above. All other systems reviewed and negative. Allergies: NO KNOWN ALLERGIES. 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 Past Surgical History: Significant for neck surgery and biopsy of fibrous tissue from the arm done a bout 15 years ago or so. Family History: Significant for hypertension and diabetes. Social History: Negative for smoking or alcohol use. Physical Examination: Vital Signs: Temperature 98.4, pulse 55 respiratory rate 16, blood pressure 144/67. General: Awake, alert, oriented, not in distress. HEENT: Head atraumatic, normocephalic. Conjunctivae nonerythematous. Sclerae white. Mouth, no thr ush or edema noted. Ears/Nose, no mass, lesion, discharge noted. Neck: Supple. No JVD, lymph nodes, bruit, thyromegaly noted. Lungs: Bilateral good equal air entry. Clear to auscultation. No rhonchi. No rales. Heart: Normal heart sounds, no murmur or gallop. Abdomen: Soft, bowel sounds normal. No guarding, rigidity, tenderness, mass, hepatosplenomegaly, dis tention, or bruit noted. Extremities: No leg edema. No calf tenderness. Skin: No rash, ulcer, cellulitis. Lymphatics: No lymph node enlargement in neck, supraclavicular, infraclavicular region. Neuro: No focal neurological deficit. Chest: Unremarkable. External Genitalia: Deferred. Rectal: Deferred. Laboratory Data: His percentage reticulocyte count done today is 0.97. Serum iron 24, TIBC 188, katie ritin 318, folic acid level more than 20, vitamin B12 620. Yesterday outpatient labs done; glucose 8 0, BUN 45, creatinine 3.15, sodium 144, potassium 5.2, chloride 113, bicarb 27, calcium 8.8, TSH 0.36 , white count 5.4, hemoglobin 6.8, platelets 94. Impression: 1.Anemia due to chronic kidney disease. 2.Thrombocytopenia. 3.Chronic kidney disease, stage 4 to stage 5. 4.Hypertension. 5.Mixed hyperlipidemia. 6.Diabetes mellitus, with chronic kidney disease. 7.Systemic lupus erythematosus. 8.Hypothyroidism. 9.Hyperkalemia. Plan: Admit the patient to hospital for further evaluation and management of this problem. The suleman ent is appropriate for inpatient and is expected to spend 2 midnights in hospital. We will go ahead and transfuse 2 units PRBC. Get post transfusion CBC done in 2 hours. SCD will be ordered for DVT p rophylaxis. We will send stool for guaiac on a daily basis. Home medications will be continued per order, and details on plan of treatment discussed with the patient and his . The patient has see n Dr. Wadr in the past. If any GI consultation, then we will contact him. NADIA/MODL Voice ID: [id number]
[2018-01-26 05:48] LABS: Absolute Lymphocytes (CBC) 1.4 K/uL (0.7-4.9); Absolute Monocytes 0.6 K/uL (0.1-1.3); Basophils % 1.1 % (0-1.3); Eosinophils % 3.7 % (0-4.4); Hematocrit 24.2 % (39.6-49.0); Lymphocytes % 26.3 % (15.3-44.8); MCH 30.8 pg (27.0-35.0); MCV 94.3 fL (80-100); MPV 10.8 fL (7.6-11.3); Monocytes % 11.4 % (3.3-12.3); RBC Red Blood Cell Count 2.56 M/uL (4.33-5.43)
[2018-01-26] MEDS ORDERED: LEVOTHYROXINE SOD 0.088 MG TAB PO SCH (07:30)
[2018-01-26] MEDS: INSULIN -REGULAR HUMAN 50 UNIT/0.5 ML ML SQ SCH (07:30)
[2018-01-26] MEDS: SOD POLYSTYREN SUL 15 GM/60 ML UCUP PO SCH (07:45)
[2018-01-26] MEDS ORDERED: CARVEDILOL 6.25 MG TAB PO SCH (08:00)
[2018-01-26 08:30] VITALS: TEMP 97.4
[2018-01-26] MEDS ORDERED: FOLBIC 1 TAB PO SCH (09:00)
[2018-01-26] MEDS ORDERED: DOXAZOSIN 1 MG TAB PO SCH (09:00)
[2018-01-26] MEDS ORDERED: FERROUS SULFATE 325 MG TAB PO SCH (09:00)
[2018-01-26] MEDS ORDERED: DOXAZOSIN 2 MG TAB PO SCH (09:00)
[2018-01-26] MEDS ORDERED: FOLIC ACID 1 MG TABLET PO SCH (09:00)
[2018-01-26] MEDS ORDERED: HYDRALAZINE HCL 10 MG TABLET PO SCH (09:00)
[2018-01-26] MEDS ORDERED: AMLODIPINE 10 MG TAB PO SCH (09:00)
[2018-01-26 09:50] VITALS: BP 159/71
[2018-01-26] MEDS ORDERED: ATORVASTATIN 20 MG TAB PO SCH (21:00)
--- NOTE | 2018-01-27 05:49 | DS ---
Date of Discharge: 01/26/2018 Disposition: Discharged to go home. Physical Examination: HEENT: Unremarkable. Lungs: Clear to auscultation. Heart: Sounds normal. Abdomen: Soft, bowel sounds normal. No guarding, rigidity, tenderness, or distention. Extremities: No leg edema. Laboratory Data: White count 5.2, hemoglobin 7.9, platelets 103. Hospital Course: A 72-year-old male patient, was admitted to the hospital yesterday from office with anemia problem. His hemoglobin was 6.8, which was done day before yesterday on outpatient basis. Deja chavez does not have any signs and symptoms of any acute blood loss anemia. He has chronic anemia due to kidney disease and he was admitted to the hospital with this anemia problem for blood transfusion. T he patient has not shown any signs and symptoms due to anemia problem. He does not have any chest pa in, shortness of breath, or tiredness type of feeling. Our intention was to give him 2 units of pack ed red cell blood transfusion. Last night after he received 1 unit of packed red cell blood transfus ion, nurse contacted and informed me that the patient was having high blood pressure and she heard so me crackles in the lower part of the lung, so at that time she was advised not to give second unit of blood transfusion, and 40 mg Lasix IV and amlodipine 5 mg p.o. x1 dose was ordered. The patient's c ondition improved after that. This morning, his was at bedside and we did talk about his posttr ansfusion hemoglobin looks much better, 7.9. No need for second unit of blood transfusion, and plan is to discharge him to go home and I will continue to follow up on outpatient basis. The patient and patient's were made aware of the fact that his medication list that they will be getting from [facility] is not going to be accurate and they need to continue all his medications the way he was gregg [place] before this admission except increase the dose of hydralazine 10 mg and patient to take 2 tablets twice a day instead of his usual dose was 1 tablet 2 times a day. The patient to follow up at my off [facility] in 2 weeks, and I will continue to monitor his blood work on outpatient basis. I have advised e patient's to call my office to get a referral to see fashion merchandiser for anemia and thrombocytope diane problem, and we will refer him to Dr. De Jesus/Dr. Al. I did order stool guaiac tests during this hospitalization, but it was never collected. Discharge Diagnoses: 1.Anemia due to chronic kidney disease. 2.Thrombocytopenia. 3.Chronic kidney disease, stage 5. 4.Hypertension. 5.Mixed hyperlipidemia. 6.Diabetes mellitus with chronic kidney disease. 7.Systemic lupus erythematosus. 8.Hyperkalemia. 9.Hypothyroidism. NADIA/MODL Voice ID: [id number] Report ID: [id number]
== END 2018-01-26 09:50 | disposition home or self-care (01) ==
LOC: 4TH 18:26 → INTOOBSV 18:26
PROVIDERS: ADMIT Internal Medicine; ATTEND Internal Medicine
PROC: 30233N1 Transfusion of Nonautologous Red Blood Cells into Peripheral Vein, Percutaneous Approach (ICD-10-PCS; principal; 2018-01-25)
DX: I12.0 Hypertensive chronic kidney disease with stage 5 chronic kidney disease or end stage renal disease (principal); E11.22 Type 2 diabetes mellitus with diabetic chronic kidney disease; N18.5 Chronic kidney disease, stage 5; E78.2 Mixed hyperlipidemia; D63.1 Anemia in chronic kidney disease; M32.9 Systemic lupus erythematosus, unspecified; E87.5 Hyperkalemia; E03.9 Hypothyroidism, unspecified; D69.6 Thrombocytopenia, unspecified
CPT/HCPCS: 36415; 36430; 82607; 82728; 82746; 82962; 83540; 84466; 85025; 85044; 86850; 86900; 86901; J7030; P9016

== ENCOUNTER 2018-08-15 08:14 | Day surgery (SDC) | payer OTHER ==
--- OUTSIDE RECORDS SUMMARY | 2018-08-15 08:18 | XMS REPORT ---
:1945 Author [facility] Address [address] [place] [address] Dr. Crowley[address] [place] [id number] Care Team Providers Name Role Phone Unavailable Unavailable Unavailable Problems This patient has no known problems. Allergies, Adverse Reactions, Alerts This patient has no known allergies or adverse reactions. Medications This patient has no known medications.
--- OUTSIDE RECORDS SUMMARY | 2018-08-15 08:18 | XMS REPORT | Clinical Summary ---
:1945 Author Organization [facility] Address [address] [place] [address] Care Team Providers Name Role Phone Asked, No Pcp Primary Care Provider Unavailable Allergies No Known Allergies Medications Medication Sig Dispensed Refills Start Date End Date Status levothyroxine Take 88 mcg by 0 Active (SYNTHROID, LEVOTHROID) mouth every 88 MCG tablet morning. colestipol (COLESTID) 1 Take 1 g by mouth 0 Active gram tablet 2 (two) times a day. carvedilol (COREG) 12.5 Take 12.5 mg by 0 Active MG tablet mouth 2 (two) times a day with meals. doxazosin (CARDURA) 4 Take 4 mg by 0 Active MG tablet mouth nightly. amLODIPine (NORVASC) 10 Take 10 mg by 0 Active MG tablet mouth daily. atorvastatin (LIPITOR) Take 40 mg by 0 Active 40 MG tablet mouth daily. aspirin (ECOTRIN) 81 MG Take 81 mg by 0 Active enteric coated tablet mouth daily. sodium polystyrene Take 1 Package by 0 Active sulfonate 15 gram mouth 2 (two) powder in packet times a week. esomeprazole (NexIUM) Take 40 mg by 0 Active 40 MG capsule mouth daily before breakfast. insulin ASPART Inject under the 0 Active (NovoLOG) 100 unit/mL skin 2 (two) injection times a day before meals. cholecalciferol, Take 1,000 Units 0 Active vitamin D3, (VITAMIN by mouth daily. D3) 1,000 unit tablet iron-vitamin C 65 mg Take 1 tablet by 0 Active iron- 125 mg mouth daily. tablet,delayed release (DR/EC) brinzolamide-brimonidin Apply 1 drop to 0 Active e (SIMBRINZA) 1-0.2 % eye 2 (two) times drops,suspension a day. Active Problems Problem Noted Date Systemic [...] Refill Rheumatology Juan Pablo Branham MD after 08/14/2017 Family History Medical History Relation Name Comments [...] Assigned at Date Recorded Not on file Job Start Date Occupation Industry Not on file Not on file Not on file Travel History Travel Start Travel End No recent travel history available. Last Filed Vital Signs Not on file Plan of Treatment Health Maintenance Due Date Last Done Comments DIABETIC RETINAL EYE EXAM 1945 DIABETIC FOOT EXAM 1954 URINE MICROALBUMIN 1954 COLON CANCER SCREENING 1994 SHINGLES VACCINES (1 of 2) 1994 PNEUMOCOCCAL POLYSACCHARIDE VACCINE AGE 65 AND OVER 2009 PNEUMOCOCCAL-13 2009 INFLUENZA VACCINE 03/02/2018 Results Not on fileafter 08/14/2017 Insurance Payer Benefit Plan / Group Subscriber ID Type Phone Address MEDICARE MEDICARE PART A AND B xxxxxxxxxx Medicare [place], [place] AETNA AETNA HMO,POS,EPO, MC/EC xxxxxxxxxx HMO Advance Directives Patient has advance care planning documents on file. For more information, please contact:[place] [address]
[2018-08-15 08:47] VITALS: BP 149/65; TEMP 97.6; O2SAT 100; BMI 25.0
[2018-08-15] MEDS ORDERED: EPOETIN ALFA 10,000 UNIT/ML ONE (09:28)
[2018-08-15 10:09] LABS: Ferritin 368.5 ng/mL (26-388); Folic Acid, (Folate) > 20.0 ng/mL (3.1-17.5); Transferrin 148 mg/dL (200-360)
== END 2018-08-15 09:25 | disposition home or self-care (01) ==
LOC: DS 08:14
PROVIDERS: ATTEND Internal Medicine Nephrology
DX: I12.9 Hypertensive chronic kidney disease with stage 1 through stage 4 chronic kidney disease, or unspecified chronic kidney disease (principal); N18.4 Chronic kidney disease, stage 4 (severe); D63.1 Anemia in chronic kidney disease; E87.5 Hyperkalemia; E87.2 Acidosis; R80.8 Other proteinuria; R60.0 Localized edema; E11.22 Type 2 diabetes mellitus with diabetic chronic kidney disease; E11.42 Type 2 diabetes mellitus with diabetic polyneuropathy; E78.2 Mixed hyperlipidemia; E03.9 Hypothyroidism, unspecified; I67.9 Cerebrovascular disease, unspecified; D50.9 Iron deficiency anemia, unspecified; K21.9 Gastro-esophageal reflux disease without esophagitis; J30.1 Allergic rhinitis due to pollen; E21.1 Secondary hyperparathyroidism, not elsewhere classified; N25.0 Renal osteodystrophy; E55.9 Vitamin D deficiency, unspecified; N40.1 Benign prostatic hyperplasia with lower urinary tract symptoms
CPT/HCPCS: 36415; 82607; 82728; 82746; 83540; 84466; 85014; 85018; 96372; J0885

== ENCOUNTER 2018-09-05 08:53 | Day surgery (SDC) | payer OTHER ==
--- OUTSIDE RECORDS SUMMARY | 2018-09-05 08:57 | XMS REPORT | Clinical Summary ---
:1945 Author Organization [facility] Address [address] [place] [address] Care Team Providers Name Role Phone Asked, [...] Refill Rheumatology Juan Pablo Branham MD after 09/04/2017 Family History Medical History Relation Name Comments [...] INFLUENZA VACCINE 03/02/2018 Results Not on fileafter 09/04/2017 Insurance Payer Benefit Plan / Group Subscriber ID Type Phone Address MEDICARE MEDICARE PART A AND B xxxxxxxxxx Medicare [place], [place] AETNA AETNA HMO,POS,EPO, MC/EC xxxxxxxxxx HMO Advance Directives Patient has advance care planning documents on file. For more information, please contact:[place] [address]
--- OUTSIDE RECORDS SUMMARY | 2018-09-05 08:57 | XMS REPORT ---
:1945 [facility] Address [address] [place] [address] Dr. Crowley. [address] [place] [id number] Care Team Providers Name Role Phone Unavailable Unavailable Unavailable Problems This patient has no known problems. Allergies, Adverse Reactions, Alerts This patient has no known allergies or adverse reactions. Medications This patient has no known medications.
[2018-09-05 09:37] LABS: Hematocrit 25.5 % (39.6-49.0)
[2018-09-05] MEDS ORDERED: EPOETIN ALFA 10,000 UNIT/ML ONE (10:22)
[2018-09-05 15:17] VITALS: BP 127/92; TEMP 98.8; O2SAT 100; BMI 25.7
== END 2018-09-05 10:18 | disposition home or self-care (01) ==
LOC: DS 08:53
PROVIDERS: ATTEND Internal Medicine Nephrology
DX: I12.9 Hypertensive chronic kidney disease with stage 1 through stage 4 chronic kidney disease, or unspecified chronic kidney disease (principal); E11.22 Type 2 diabetes mellitus with diabetic chronic kidney disease; N18.4 Chronic kidney disease, stage 4 (severe); D63.1 Anemia in chronic kidney disease; E87.5 Hyperkalemia; E87.2 Acidosis; R60.0 Localized edema; E11.42 Type 2 diabetes mellitus with diabetic polyneuropathy; E78.2 Mixed hyperlipidemia; E03.9 Hypothyroidism, unspecified; D50.9 Iron deficiency anemia, unspecified; K21.9 Gastro-esophageal reflux disease without esophagitis; J30.1 Allergic rhinitis due to pollen; E21.1 Secondary hyperparathyroidism, not elsewhere classified; L90.8 Other atrophic disorders of skin; N25.0 Renal osteodystrophy; E55.9 Vitamin D deficiency, unspecified; N40.1 Benign prostatic hyperplasia with lower urinary tract symptoms
CPT/HCPCS: 36415; 85014; 85018; 96372; J0885

== ENCOUNTER → 2018-10-07 | Day surgery (SDC) | payer OTHER ==
[~2018-10-07] MED LIST: EPOETIN ALFA 10,000 UNIT/ML ONE
--- OUTSIDE RECORDS SUMMARY | 2018-10-07 09:19 | XMS REPORT | Clinical Summary ---
:1945 Author Organization [facility] Address [address] [place] [address] Care Team Providers Name Role Phone Asked, [...] Refill Rheumatology Juan Pablo Branham MD after 10/06/2017 Family History Medical History Relation Name Comments [...] 1954 COLON CANCER SCREENING 1994 SHINGLES VACCINES (#1) 1994 65+ PNEUMOCOCCAL VACCINE (1 of 2 - PCV13) 2009 PNEUMOCOCCAL POLYSACCHARIDE VACCINE AGE 65 AND OVER 2009 INFLUENZA VACCINE 03/02/2018 Results Not on fileafter 10/06/2017 Insurance Payer Benefit Plan / Group Subscriber ID Type Phone Address MEDICARE MEDICARE PART A AND B xxxxxxxxxx Medicare [place], [place] AETNA AETNA HMO,POS,EPO, MC/EC xxxxxxxxxx HMO Advance Directives Patient has advance care planning documents on file. For more information, please contact:T[address] [place] [address]
--- OUTSIDE RECORDS SUMMARY | 2018-10-07 09:19 | XMS REPORT ---
:1945 [facility] Address [address] [place] [address] Dr. Crowley[address] [place] [address] Care Team Providers Name Role Phone Unavailable Unavailable Unavailable Problems This patient has no known problems. Allergies, Adverse Reactions, Alerts This patient has no known allergies or adverse reactions. Medications This patient has no known medications.
[2018-10-07 09:39] LABS: Hematocrit 28.6 % (39.6-49.0)
[2018-10-07 15:08] VITALS: BP 145/86; TEMP 98; O2SAT 100; BMI 25.7
== END ==
LOC: DS 09:16
PROVIDERS: ATTEND Internal Medicine Nephrology
DX: E11.22 Type 2 diabetes mellitus with diabetic chronic kidney disease (principal); I12.9 Hypertensive chronic kidney disease with stage 1 through stage 4 chronic kidney disease, or unspecified chronic kidney disease; N18.4 Chronic kidney disease, stage 4 (severe); D63.1 Anemia in chronic kidney disease; E87.5 Hyperkalemia; E87.2 Acidosis; R80.8 Other proteinuria; R60.0 Localized edema; E11.42 Type 2 diabetes mellitus with diabetic polyneuropathy; E78.2 Mixed hyperlipidemia; E03.9 Hypothyroidism, unspecified; D50.9 Iron deficiency anemia, unspecified; I67.9 Cerebrovascular disease, unspecified; K21.9 Gastro-esophageal reflux disease without esophagitis; J30.1 Allergic rhinitis due to pollen; E21.1 Secondary hyperparathyroidism, not elsewhere classified; N25.0 Renal osteodystrophy; E55.9 Vitamin D deficiency, unspecified; N40.1 Benign prostatic hyperplasia with lower urinary tract symptoms
CPT/HCPCS: 36415; 85018; 85014; 96372; J0885

== ENCOUNTER → 2018-11-01 | Day surgery (SDC) | payer OTHER ==
--- OUTSIDE RECORDS SUMMARY | 2018-11-01 09:51 | XMS REPORT | Clinical Summary ---
:1945 Author Organization [facility] Address [address] [place] [address] Care Team Providers Name Role Phone Asked, [...] Refill Rheumatology Juan Pablo Branham MD after 10/31/2017 Family History Medical History Relation Name Comments [...] INFLUENZA VACCINE 03/02/2018 Results Not on fileafter 10/31/2017 Insurance Payer Benefit Plan / Group Subscriber ID Type Phone Address MEDICARE MEDICARE PART A AND B xxxxxxxxxx Medicare [place], [place] AETNA AETNA HMO,POS,EPO, MC/EC xxxxxxxxxx HMO Advance Directives Patient has advance care planning documents on file. For more information, please contact:T[address] [place] [address]
--- OUTSIDE RECORDS SUMMARY | 2018-11-01 09:51 | XMS REPORT ---
:1945 [facility] Address [address] [place] [address] Dr. Crowley. [address] [place] [id number] Care Team Providers Name Role Phone Unavailable Unavailable Unavailable Problems This patient has no known problems. Allergies, Adverse Reactions, Alerts This patient has no known allergies or adverse reactions. Medications This patient has no known medications.
[2018-11-01 09:53] VITALS: BP 149/54; TEMP 98.6; O2SAT 100
[2018-11-01 09:57] VITALS: BMI 26.0
== END ==
LOC: DS 09:31
PROVIDERS: ATTEND Internal Medicine Nephrology
DX: E11.22 Type 2 diabetes mellitus with diabetic chronic kidney disease (principal); I12.9 Hypertensive chronic kidney disease with stage 1 through stage 4 chronic kidney disease, or unspecified chronic kidney disease; N18.4 Chronic kidney disease, stage 4 (severe); D63.1 Anemia in chronic kidney disease; E87.5 Hyperkalemia; E87.2 Acidosis; R80.8 Other proteinuria; R60.0 Localized edema; E11.42 Type 2 diabetes mellitus with diabetic polyneuropathy; E78.2 Mixed hyperlipidemia; E03.9 Hypothyroidism, unspecified; D50.9 Iron deficiency anemia, unspecified; I67.9 Cerebrovascular disease, unspecified; K21.9 Gastro-esophageal reflux disease without esophagitis; J30.1 Allergic rhinitis due to pollen; E21.1 Secondary hyperparathyroidism, not elsewhere classified; N25.0 Renal osteodystrophy; E55.9 Vitamin D deficiency, unspecified; N40.1 Benign prostatic hyperplasia with lower urinary tract symptoms
CPT/HCPCS: 96372; J0885

== ENCOUNTER 2018-11-30 11:48 | Inpatient (IN) | payer OTHER ==
--- OUTSIDE RECORDS SUMMARY | 2018-11-30 11:50 | XMS REPORT ---
:1945 [facility] Address [address] [place] [address] Dr. Crow[address] [place] [address] Care Team Providers Name Role Phone Unavailable Unavailable Unavailable Problems This patient has no known problems. Allergies, Adverse Reactions, Alerts This patient has no known allergies or adverse reactions. Medications This patient has no known medications.
--- OUTSIDE RECORDS SUMMARY | 2018-11-30 11:50 | XMS REPORT | Clinical Summary ---
:1945 Author Organization [facility] Address [address] [place] [address] Care Team Providers Name Role Phone Asked, [...] Refill Rheumatology Juan Pablo Branham MD after 11/29/2017 Family History Medical History Relation Name Comments [...] AGE 65 AND OVER 2009 INFLUENZA VACCINE 03/02/2019 Results Not on fileafter 11/29/2017 Insurance Payer Benefit Plan / Group Subscriber ID Type Phone Address MEDICARE MEDICARE PART A AND B xxxxxxxxxx Medicare [place], [place] AETNA AETNA HMO,POS,EPO, MC/EC xxxxxxxxxx HMO Advance Directives Patient has advance care planning documents on file. For more information, please contact:[place] [address]
[2018-11-30] MEDS ORDERED: NA CHLORIDE 0.9% 1,000 ML ONE ×2 (12:34→13:49)
--- NOTE | 2018-11-30 13:02 | RAD REPORT ---
EXAM DESCRIPTION: Ant Single View11/30/2018 12:44 pm CLINICAL HISTORY: cough COMPARISON: November 2017 FINDINGS: The lungs appear clear of acute infiltrate. The heart is normal size Numerous soft tissue calcifications are again demonstrated IMPRESSION: No acute abnormalities displayed
[2018-11-30 13:14] LABS: Absolute Lymphocytes (CBC) 1.5 K/uL (0.7-4.9); Absolute Monocytes 0.3 K/uL (0.1-1.3); Absolute Neutrophil 3.3 K/uL (1.8-8.0); Basophils % 0.6 % (0-1.3); Eosinophils % 2.1 % (0-4.4); Hematocrit 32.1 % (39.6-49.0); Lymphocytes % 28.8 % (15.3-44.8); MPV 10.6 fL (7.6-11.3); Monocytes % 5.6 % (3.3-12.3); Protime INR 0.99
[2018-11-30 13:22] LABS: Albumin 3.5 g/dL (3.4-5.0); Bilirubin Direct 0.1 mg/dL (0-0.2); Bilirubin Total 0.5 mg/dL (0.2-1.0); Magnesium 1.9 mg/dL (1.8-2.4); Protein, Total 8.4 g/dL (6.4-8.2); Troponin (Emerg Dept Use Only) 0.02 ng/mL (0.0-0.045)
[2018-11-30 13:24] LABS: Potassium 6.4 mmol/L (3.5-5.1)
[2018-11-30] MEDS ORDERED: D50W 25 GM/50 ML SYRINGE IV ONE (13:48)
[2018-11-30] MEDS ORDERED: INSULIN -REGULAR HUMAN 50 UNIT/0.5 ML ML ONE (13:48)
[2018-11-30] MEDS ORDERED: SOD POLYSTYREN SUL 15 GM/60 ML UCUP ONE (13:48)
[2018-11-30] MEDS ORDERED: ALBUTEROL 2.5 MG/3 ML NEB SOL ONE ×2 (13:48→14:05)
--- NOTE | 2018-11-30 13:49 | ER ---
Nurse's Notes [facility] Name: Jozef Carbajal Age: 73 yrs Sex: Male : 1945 Arrival Date: 11/30/2018 Time: 11:50 Bed 7 Private MD: Justin Vanessa C Diagnosis: Acute kidney failure;Dehydration;Influenza due to certain identified influenza viruses;Hyperkalemia Presentation: 11/30 11:50 Presenting complaint: Patient states: generalized weakness, body aches, dry cough, aa5 chills, and sore throat that began 1 week ago. 11:50 Method Of Arrival: Wheelchair aa5 11:50 Acuity: CARLOS MANUEL 3 aa5 12:00 Transition of care: patient was not received from another setting of care. Onset of aa5 symptoms was October 2018. Risk Assessment: Do you want to hurt yourself or someone else? Patient reports no desire to harm self or others. Initial Sepsis Screen: Does the patient meet any 2 criteria? No. Patient's initial sepsis screen is negative. Does the patient have a suspected source of infection? No. Patient's initial sepsis screen is negative. Care prior to arrival: None. Triage Assessment: 12:44 General: Appears in no apparent distress. uncomfortable, Behavior is calm, cooperative, hj appropriate for age. Pain: Denies pain. EENT: No signs and/or symptoms were reported regarding the EENT system. Neuro: Level of Consciousness is awake, alert, obeys commands, Oriented to person, place, time, situation, Appropriate for age. Cardiovascular: Capillary refill < 3 seconds Patient's skin is warm and dry. Respiratory: Airway is patent Respiratory effort is even, unlabored, Respiratory pattern is regular, symmetrical. GI: No signs and/or symptoms were reported involving the gastrointestinal system. : No signs and/or symptoms were reported regarding the genitourinary system. Derm: No signs and/or symptoms reported regarding the dermatologic system. Musculoskeletal: No signs and/or symptoms reported regarding the musculoskeletal system. Historical: - Allergies: 11:55 No Known Allergies; aa5 - Home Meds: 11:55 aspirin 81 mg Oral TbEC 1 tab once daily [Active]; atorvastatin 20 mg Oral tab 1 tab hj once daily [Active]; carvedilol 3.125 mg Oral tab 1 tab 2 times per day [Active]; doxazosin 4 mg Oral tab 2 tabs once daily [Active]; folic acid 1 mg Oral tab 1 tab once daily [Active]; hydralazine 10 mg Oral tab [Active]; levothyroxine 88 mcg tab 1 tab once daily [Active]; methotrexate sodium 2.5 mg Oral tab [Active]; - PMHx: 11:55 Anemia; Diabetes - NIDDM; Hypertension; Hypothyroidism; Lupus; Renal Disease; aa5 - PSHx: 11:55 Cholecystectomy; aa5 - Immunization history:: Pneumococcal vaccine is up to date, Flu vaccine is up to date. - Social history:: Smoking status: Patient/guardian denies using tobacco. - Ebola Screening: : No symptoms or risks identified at this time. Screenin:41 Abuse screen: Denies threats or abuse. Denies injuries from another. Nutritional hj screening: No deficits noted. Tuberculosis screening: No symptoms or risk factors identified. Fall Risk None identified. Assessment: 12:45 Reassessment: see triage for assessment;. hj 13:30 Reassessment: Patient and/or family updated on plan of care and expected duration. Pain hj level reassessed. Patient is alert, oriented x 3, equal unlabored respirations, skin warm/dry/pink. awaiting results and POC:. 14:39 Reassessment: Patient and/or family updated on plan of care and expected duration. Pain hj level reassessed. Patient is alert, oriented x 3, equal unlabored respirations, skin warm/dry/pink. for admit; awaiting room placement;. 15:11 Reassessment: BGL- 55; pt able to drink a glass of orange juice; will check BGL in 15 hj mnis;. Vital Signs: 11:52 BP 191 / 95; Pulse 73; Resp 16 S; Temp 98.1(O); Pulse Ox 100% on R/A; Weight 83.91 kg aa5 (R); Height 6 ft. 0 in. (182.88 cm) (R); 13:30 BP 203 / 92; Pulse 74; Resp 18; Pulse Ox 100% on R/A; hj 14:18 BP 188 / 93; Pulse 75; Resp 18; Pulse Ox 99% on R/A; hj 11:52 Body Mass Index 25.09 (83.91 kg, 182.88 cm) aa5 ED Course: 11:50 Patient arrived in ED. mr 11:50 Justin Vanessa MD is Private Physician. mr 11:50 Arm band placed on Patient placed in an exam room, on a stretcher. aa5 12:08 Triage completed. aa5 12:09 Gurwinder Baker PA is PHCP. jr8 12:09 Jeannie Bolaños MD is Attending Physician. jr8 12:18 Tavo Domínguez, VAMSHI is Primary Nurse. hj 12:35 EKG done, by manufacturing maintenance technician. reviewed by Gurwinder BENNETT. at1 12:35 Inserted saline lock: 20 gauge in right antecubital area, using aseptic technique. hj Blood collected. 12:35 Initial lab(s) drawn, by me, sent to lab. First set of blood cultures drawn by me. hj 12:39 Influenza Screen (a \T\ B) Sent. hj 12:40 Lactate Sent. hj 12:40 Procalcitonin Sent. hj 12:40 Blood Culture Adult (2) Sent. hj 12:40 Basic Metabolic Panel Sent. hj 12:40 CBC with Diff Sent. hj 12:40 LFT's Sent. hj 12:40 Magnesium Sent. hj 12:40 NT PRO-BNP Sent. hj 12:40 PT-INR Sent. hj 12:40 Troponin (emerg Dept Use Only) Sent. hj 12:43 X-ray completed. Portable x-ray completed in exam room. Patient tolerated procedure jb2 well. 12:43 XRAY Chest (1 view) In Process Unspecified. EDMS 12:44 Patient has correct armband on for positive identification. Placed in gown. Bed in low hj position. Call light in reach. Side rails up X2. Adult w/ patient. 13:48 Justin Vanessa MD is Hospitalizing Provider. jr8 15:12 No provider procedures requiring assistance completed. Patient admitted, IV remains in hj place. intact. Administered Medications: 12:35 Drug: NS 0.9% 1000 ml Route: IV; Rate: 1000 ml; Site: right antecubital; hj 13:50 Follow up: IV Status: Completed infusion; IV Intake: 1000ml hj 13:44 Drug: NS 0.9% 1000 ml Route: IV; Rate: 1000 ml; Site: right antecubital; hj 15:14 Follow up: IV Status: Completed infusion; IV Intake: 1000ml hj 13:44 Drug: D50W 50 ml Route: IVP; Site: right antecubital; hj 13:53 Follow up: Response: No adverse reaction hj 13:44 Drug: Insulin Regular Human 10 units {Co-Signature: iw (Merline Cotton RN).} Route: hj IVP; Site: right antecubital; 13:53 Follow up: Response: No adverse reaction hj 13:44 Drug: Albuterol 2.5 mg Route: Inhalation; hj 13:44 Drug: Kayexalate 30 grams Route: PO; hj 13:54 Follow up: Response: No adverse reaction hj 14:00 Drug: Albuterol 2.5 mg Route: Inhalation; hj 14:15 Drug: Albuterol 2.5 mg Route: Inhalation; hj 14:25 Drug: Tamiflu 30 mg Route: PO; hj 14:29 Follow up: Response: No adverse reaction Point of Care Testing: Blood Glucose: 15:08 Blood Glucose: 55 mg/dL; lt1 15:30 Blood Glucose: 74 mg/dL; lt1 Ranges: Intake: 13:50 IV: 1000ml; Total: 1000ml. hj 15:14 IV: 1000ml; Total: 2000ml. Outcome: 13:49 Decision to Hospitalize by Provider. jr8 15:12 Admitted to Tele accompanied by nurse, family with patient, via wheelchair, room 403, with chart, Report called to VAMSHI Sellers 15:12 Condition: stable 15:12 Instructed on the need for admit, Demonstrated understanding of instructions. 15:38 Patient left the ED. Signatures: Dispatcher [employer] SYED DelarosaBettye joy mr GuyJamari2 Radha Cortez, RN RN aa5 Gurwinder Baker PA PA jr8 Vivienne Fonseca, care analyst EKG Tat1 Tavo Domínguez RN RN hj Tran, Leah lt1 Merline deleon Corrections: (The following items were deleted from the chart) 12:09 12:00 Presenting complaint: Patient states: generalized weakness, body aches, dry aa5 cough, chills, and sore throat that began 1 week ago aa5 12: 12:00 Acuity: CARLOS MANUEL 3 aa5 aa5 12: 12:00 Method Of Arrival: Wheelchair aa5 aa5 12:09 11:52 Pulse 73bpm; Resp 16bpm; Spontaneous; Pulse Ox 100% RA; Temp 98.1F Oral; 83.91 kg aa5 Reported; Height 6 ft. 0 in. Reported; BMI: 25.0; aa5
--- NOTE | 2018-11-30 13:50 | EDPHYS ---
Physician Documentation [facility] Name: Jozef Carbajal Age: 73 yrs Sex: Male : 1945 Arrival Date: 11/30/2018 Time: 11:50 Bed 7 Private MD: Justin Vanessa C ED Physician Jeannie Bolaños HPI: 11/30 13:32 This 73 yrs old Black Male presents to ER via Wheelchair with complaints of General jr8 weakness. 13:[address] Vanessa's office for further evaluation. Stated that he has had one jr8 week history of weakness that is getting worse. Had sore throat, fever, and cough as well. 2 days ago with diarrhea. Denies CP, shortness of breath, abdominal pain, urinary complaints.. Severity of symptoms: At their worst the symptoms were moderate in the emergency department the symptoms are unchanged. The patient has not experienced similar symptoms in the past. The patient has been recently seen by a physician: the patient's primary care provider. Historical: - Allergies: 11:55 No Known Allergies; aa5 - Home Meds: 11:55 aspirin 81 mg Oral TbEC 1 tab once daily [Active]; atorvastatin 20 mg Oral tab 1 tab hj once daily [Active]; carvedilol 3.125 mg Oral tab 1 tab 2 times per day [Active]; doxazosin 4 mg Oral tab 2 tabs once daily [Active]; folic acid 1 mg Oral tab 1 tab once daily [Active]; hydralazine 10 mg Oral tab [Active]; levothyroxine 88 mcg tab 1 tab once daily [Active]; methotrexate sodium 2.5 mg Oral tab [Active]; - PMHx: 11:55 Anemia; Diabetes - NIDDM; Hypertension; Hypothyroidism; Lupus; Renal Disease; aa5 - PSHx: 11:55 Cholecystectomy; aa5 - Immunization history:: Pneumococcal vaccine is up to date, Flu vaccine is up to date. - Social history:: Smoking status: Patient/guardian denies using tobacco. - Ebola Screening: : No symptoms or risks identified at this time. ROS: 13:32 Neck: Negative for injury, pain, and swelling, Cardiovascular: Negative for chest pain, jr8 palpitations, and edema, Back: Negative for injury and pain, MS/Extremity: Negative for injury and deformity, Skin: Negative for injury, rash, and discoloration, Neuro: Negative for headache, weakness, numbness, tingling, and seizure. 13:32 Constitutional: Positive for body aches, chills, fatigue, fever, malaise. 13:32 ENT: Positive for sore throat. 13:32 Respiratory: Positive for cough, Negative for dyspnea on exertion, shortness of breath, sputum production, wheezing. 13:32 Abdomen/GI: Positive for diarrhea, Negative for abdominal pain, nausea and vomiting, abdominal cramps, abdominal distension, anorexia, dysphagia, hematemesis, black/tarry stool, rectal pain, rectal bleeding, bowel incontinence, flatulence. Exam: 13:32 Eyes: Pupils equal round and reactive to light, extra-ocular motions intact. Lids and jr8 lashes normal. Conjunctiva and sclera are non-icteric and not injected. Cornea within normal limits. Periorbital areas with no swelling, redness, or edema. Neck: Trachea midline, no thyromegaly or masses palpated, and no cervical lymphadenopathy. Supple, full range of motion without nuchal rigidity, or vertebral point tenderness. No Meningismus. Cardiovascular: Regular rate and rhythm with a normal S1 and S2. No gallops, murmurs, or rubs. Normal PMI, no JVD. No pulse deficits. Respiratory: Lungs have equal breath sounds bilaterally, clear to auscultation and percussion. No rales, rhonchi or wheezes noted. No increased work of breathing, no retractions or nasal flaring. Abdomen/GI: Soft, non-tender, with normal bowel sounds. No distension or tympany. No guarding or rebound. No evidence of tenderness throughout. Back: No spinal tenderness. No costovertebral tenderness. Full range of motion. Skin: Warm, dry with normal turgor. Normal color with no rashes, no lesions, and no evidence of cellulitis. MS/ Extremity: Pulses equal, no cyanosis. Neurovascular intact. Full, normal range of motion. Neuro: Awake and alert, GCS 15, oriented to person, place, time, and situation. Cranial nerves II-XII grossly intact. Motor strength 5/5 in all extremities. Sensory grossly intact. Cerebellar exam normal. Normal gait. 13:32 ENT: Exam is negative for earache, ear discharge, TM abnormalities, nasal discharge, pharyngitis, Mouth: Lips: dry, Oral mucosa: dry, Gums: pink, Tongue: is normal. Vital Signs: 11:52 BP 191 / 95; Pulse 73; Resp 16 S; Temp 98.1(O); Pulse Ox 100% on R/A; Weight 83.91 kg aa5 (R); Height 6 ft. 0 in. (182.88 cm) (R); 13:30 BP 203 / 92; Pulse 74; Resp 18; Pulse Ox 100% on R/A; hj 14:18 BP 188 / 93; Pulse 75; Resp 18; Pulse Ox 99% on R/A; hj 11:52 Body Mass Index 25.09 (83.91 kg, 182.88 cm) aa5 MDM: 12:09 Patient medically screened. jr8 13:32 Data reviewed: vital signs, nurses notes, lab test result(s), EKG, radiologic studies, jr8 plain films. Data interpreted: Pulse oximetry: on room air is 100 %. Interpretation: normal. Counseling: I had a detailed discussion with the patient and/or guardian regarding: the historical points, exam findings, and any diagnostic results supporting the discharge/admit diagnosis, lab results, radiology results, the need for further work-up and treatment in the hospital. ED course: left message with Dr. Vanessa to call back for admission . 11/30 12:17 Order name: Basic Metabolic Panel; Complete Time: 13:11/30 12:17 Order name: CBC with Diff; Complete Time: 13:18 11/30 12:17 Order name: LFT's; Complete Time: 13:11/30 12:17 Order name: Magnesium; Complete Time: 13:26 11/30 12:17 Order name: NT PRO-BNP; Complete Time: 13:26 11/30 12:17 Order name: PT-INR; Complete Time: 13:18 11/30 12:17 Order name: Troponin (emerg Dept Use Only); Complete Time: 13:26 11/30 12:17 Order name: XRAY Chest (1 view); Complete Time: 13:18 11/30 12:17 Order name: Blood Culture Adult (2) 11/30 12:17 Order name: Procalcitonin; Complete Time: 13:30 11/30 12:17 Order name: Lactate; Complete Time: 13:18 11/30 12:17 Order name: Influenza Screen (a \T\ B); Complete Time: 13:18 11/30 12:17 Order name: EKG; Complete Time: 12:18 11/30 12:17 Order name: Cardiac monitoring; Complete Time: 12:18 11/30 12:17 Order name: EKG - Nurse/Tech; Complete Time: 12:40 11/30 12:17 Order name: IV Saline Lock; Complete Time: 12:41 11/30 12:17 Order name: Labs collected and sent; Complete Time: 12:11/30 12:17 Order name: O2 Per Protocol; Complete Time: 12:11/30 12:17 Order name: O2 Sat Monitoring; Complete Time: 12:19 Administered Medications: 12:35 Drug: NS 0.9% 1000 ml Route: IV; Rate: 1000 ml; Site: right antecubital; hj 13:50 Follow up: IV Status: Completed infusion; IV Intake: 1000ml hj 13:44 Drug: NS 0.9% 1000 ml Route: IV; Rate: 1000 ml; Site: right antecubital; hj 15:14 Follow up: IV Status: Completed infusion; IV Intake: 1000ml hj 13:44 Drug: D50W 50 ml Route: IVP; Site: right antecubital; hj 13:53 Follow up: Response: No adverse reaction hj 13:44 Drug: Insulin Regular Human 10 units {Co-Signature: iw (Merline Cotton RN).} Route: hj IVP; Site: right antecubital; 13:53 Follow up: Response: No adverse reaction hj 13:44 Drug: Albuterol 2.5 mg Route: Inhalation; hj 13:44 Drug: Kayexalate 30 grams Route: PO; hj 13:54 Follow up: Response: No adverse reaction hj 14:00 Drug: Albuterol 2.5 mg Route: Inhalation; hj 14:15 Drug: Albuterol 2.5 mg Route: Inhalation; hj 14:25 Drug: Tamiflu 30 mg Route: PO; hj 14:29 Follow up: Response: No adverse reaction Point of Care Testing: Blood Glucose: 15:08 Blood Glucose: 55 mg/dL; lt1 15:30 Blood Glucose: 74 mg/dL; lt1 Ranges: Critical Glucose Levels:Adult <50 mg/dl or >400 mg/dl <40 mg/dl or >180 mg/dl Disposition: 16:44 Co-signature as Attending Physician, Jeannie Bolaños MD. ma2 Disposition: 11/30/18 13:49 Hospitalization ordered by Justin Vanessa for Inpatient Admission. Preliminary diagnosis are Acute kidney failure, Dehydration, Influenza due to certain identified influenza viruses, Hyperkalemia. - Bed requested for Telemetry/MedSurg (Inpatient). - Status is Inpatient Admission. hj - Condition is Stable. - Problem is new. - Symptoms have improved. UTI on Admission? No Signatures: Dispatcher [employer] EDMS Kassy Clinton Audri, RN RN aa5 Gurwinder Baker PA PA jr8 Tavo Domínguez RN RN hj Alzahri, Mohammad, MD MD ma2 Merline Cotton RN iw Corrections: (The following items were deleted from the chart) 14:58 13:49 Hospitalization Ordered by A Rasheeda POLLACK for Inpatient Admission. Preliminary bd diagnosis is Acute kidney failure; Dehydration; Influenza due to certain identified influenza viruses; Hyperkalemia. Bed requested for Telemetry/MedSurg (Inpatient). Status is Inpatient Admission. Condition is Stable. Problem is new. Symptoms have improved. UTI on Admission? No. jr8 15:38 14:58 11/30/2018 13:49 Hospitalization Ordered by A Rasheeda POLLACK for Inpatient Admission. hj Preliminary diagnosis is Acute kidney failure; Dehydration; Influenza due to certain identified influenza viruses; Hyperkalemia. Bed requested for Telemetry/MedSurg (Inpatient). Status is Inpatient Admission. Condition is Stable. Problem is new. Symptoms have improved. UTI on Admission? No. bd
[2018-11-30] MEDS ORDERED: OSELTAMIVIR PHOSPHATE 30 MG/5 ML SUSPENSION UD ONE (14:42)
[2018-11-30] MEDS ORDERED: ACETAMINOPHEN 500 MG TAB PO PRN (15:13)
[2018-11-30] MEDS ORDERED: ONDANSETRON 4 MG/2 ML VIAL IV PRN (15:13)
[2018-11-30] MEDS ORDERED: D50W 25 GM/50 ML SYRINGE IV PRN (15:13)
[2018-11-30] MEDS ORDERED: GLUCAGON 1 MG/VIAL IM PRN (15:13)
[2018-11-30] MEDS: NA CHLORIDE 0.9% 1,000 ML IV SCH (15:53)
[2018-11-30] MEDS: INSULIN -REGULAR HUMAN 50 UNIT/0.5 ML ML SQ SCH ×2 (16:30→21:00)
[2018-11-30 16:43] VITALS: BMI 25.0
--- NOTE | 2018-11-30 16:49 | EKG ---
Test Date: 2018-11-30 Test Time: 12:25:35 Emergency Physician: AGUS MEASUREMENT RESULTS: Intervals: Rate: 64 NM: 200 QRSD: 88 QT: 428 QTc: 441 South Range: P: 75 NM: 200 QRS: -42 T: 66 INTERPRETIVE STATEMENTS: Normal sinus rhythm Right atrial enlargement Left axis deviation Nonspecific T wave abnormality Abnormal ECG Compared to ECG 11/05/2017 16:30:08 Left-axis deviation now present Sinus bradycardia no longer present Sinus arrhythmia no longer present T-wave abnormality still present Electronically Signed On 11-30-18 16:48:47 CDT by Diego Oliveira
[2018-11-30] MEDS ORDERED: DOXAZOSIN 1 MG TAB PO SCH (21:30)
[2018-11-30] MEDS: DOXAZOSIN 4 MG TAB PO SCH (22:19)
[2018-11-30] MEDS: ATORVASTATIN 20 MG TAB PO SCH (22:19)
[2018-11-30] MEDS: HYDRALAZINE HCL 10 MG TABLET PO SCH (22:20)
[2018-11-30] MEDS: CARVEDILOL 6.25 MG TAB PO SCH (22:20)
[2018-11-30 23:03] LABS: Urine Appearance CLEAR; Urine Bilirubin NEGATIVE (NEG); Urine Blood TRACE (NEG); Urine Color YELLOW; Urine Glucose NEGATIVE (NEG); Urine Protein 2+ (NEG); Urine Urobilinogen 0.2 mg/dL (0.2-1.0); Urine pH 5.5 (5.0-7.0)
[2018-11-30 23:06] LABS: Urine Microscopic Reflex ORDER UMIC
[2018-11-30 23:14] LABS: Urine RBC <5 /HPF (NONE SEEN)
[2018-11-30 23:15] LABS: Urine Bacteria 20-50 /HPF (NONE SEEN); Urine Culture Reflex Order REFLEXED
[2018-12-01] MEDS: NA CHLORIDE 0.9% 1,000 ML IV SCH ×2 (03:52→16:26)
[2018-12-01 04:49] LABS: Absolute Lymphocytes (CBC) 1.7 K/uL (0.7-4.9); Absolute Monocytes 0.5 K/uL (0.1-1.3); Absolute Neutrophil 3.2 K/uL (1.8-8.0); Basophils % 0.7 % (0-1.3); Eosinophils % 2.2 % (0-4.4); Hematocrit 27.4 % (39.6-49.0); Lymphocytes % 30.3 % (15.3-44.8); MPV 10.3 fL (7.6-11.3); Monocytes % 8.2 % (3.3-12.3); RBC Red Blood Cell Count 2.98 M/uL (4.33-5.43)
[2018-12-01 05:02] LABS: Potassium 5.5 mmol/L (3.5-5.1)
[2018-12-01] MEDS: AMLODIPINE 10 MG TAB PO SCH (05:07)
[2018-12-01] MEDS: DOXAZOSIN 4 MG TAB PO SCH ×2 (05:08→20:54)
[2018-12-01] MEDS: HYDRALAZINE HCL 10 MG TABLET PO SCH ×3 (05:08→20:54)
[2018-12-01] MEDS: CARVEDILOL 6.25 MG TAB PO SCH ×2 (05:09→20:54)
[2018-12-01] MEDS: LEVOTHYROXINE SOD 0.075 MG TAB PO SCH (06:14)
[2018-12-01] MEDS: INSULIN -REGULAR HUMAN 50 UNIT/0.5 ML ML SQ SCH ×4 (07:30→20:49)
[2018-12-01] MEDS: FERROUS SULFATE 325 MG TAB PO SCH (08:06)
[2018-12-01] MEDS: FOLIC ACID 1 MG TABLET PO SCH (08:07)
[2018-12-01] MEDS: ALLOPURINOL 100 MG TAB PO SCH (08:07)
[2018-12-01] MEDS: ASPIRIN 81 MG CHEWABLE TABLET PO SCH (08:07)
[2018-12-01] MEDS ORDERED: SOD POLYSTYREN SUL 15 GM/60 ML UCUP PO ONE (08:12)
[2018-12-01] MEDS: OSELTAMIVIR PHOSPHATE 30 MG/5 ML SUSPENSION UD PO SCH (11:43)
[2018-12-01] MEDS: cloNIDine HCl 0.1 MG TAB PO PRN ×2 (16:25→23:32)
--- NOTE | 2018-12-01 19:28 | HP ---
Date of Admission: 11/30/2018 Chief Complaint: Not feeling good. History Of Present Illness: Mr. Carbajal is a very pleasant 73-year-old male patient who was brought into office today by his for his routine followup visit and informed us that for last 2 wee , the patient is not feeling good. He is feeling sick, having some cough, chest congestion. Not a ble to cough up any mucus. No hemoptysis. Has had some fever in last 2 weeks, off and on, feeling v ying weak and symptoms are getting worse over period of last 2 weeks as he reported. His appetite is not good. He feels very unsteady and requires assistance when he gets up and moves around in the josé miguel m. He required assistance in the office when he was trying to get up to sit on the exam table and re quired 2 people assistance at that time. After he was evaluated, he was sent to emergency room and a fter evaluation in the emergency room, he was admitted to the hospital with volume depletion, worseni ng of his chronic kidney disease, and influenza. Medications: List reviewed. Review of Systems: Constitutional: As mentioned above. Respiratory: As mentioned above. All other systems reviewed and negative. Allergies: NO KNOWN ALLERGIES. Social History: Negative for smoking and alcohol use. Family History: Significant for diabetes, hypertension. Past Surgical History: Significant for neck surgery and biopsy of fibrous area from the arm. Past Medical History: Significant for diabetes mellitus, chronic kidney disease stage 4, hyperkalemi a, thrombocytopenia, anemia due to chronic kidney disease, diabetes mellitus with chronic kidney dise ase, mixed hyperlipidemia, hypertension, hypothyroidism. Physical Examination: Vital Signs: When he was at our office, height 72 inches, weight 185 pounds, blood pressure 169/80, pulse 73, respiratory rate 15, temperature 97.64. General: The patient appears to have significant generalized weakness. Awake, alert, not in any dis tress. HEENT: Head atraumatic, normocephalic. Conjunctivae nonerythematous. Sclerae white. Mouth, no thr ush or edema noted. Ears/Nose, no mass, lesion, discharge noted. Neck: Supple. No JVD, lymph nodes, bruit, thyromegaly noted. Lungs: Bilateral good equal air entry. Clear to auscultation. No rhonchi. No rales. Heart: Normal heart sounds, no murmur or gallop. Abdomen: Soft, bowel sounds normal. No guarding, rigidity, tenderness, mass, hepatosplenomegaly, dis tention, or bruit noted. Extremities: No leg edema. No calf tenderness. Skin: No rash, ulcer, cellulitis. Lymphatics: No lymph node enlargement in neck, supraclavicular, infraclavicular region. Neuro: No focal neurological deficit. Chest: Unremarkable. External Genitalia: Deferred. Rectal: Deferred. Laboratory Data: White count 5.2, hemoglobin 10.2, platelets 148. INR 0.99. Sodium 144, potassium 6.4, chloride 115, bicarb 23, BUN 79, creatinine 4.59, glucose 88. Liver function tests unremarkable . Procalcitonin 0.22. Urinalysis, 1+ esterase, 20-50 bacteria, otherwise negative. Influenza test p ositive for influenza B. Impression: 1.Volume depletion. 2.Chronic kidney disease stage 4 with acute worsening. 3.Hyperkalemia. 4.Influenza B with respiratory manifestation. 5.Anemia due to chronic kidney disease. 6.Urinary tract infection. 7.Diabetes mellitus with chronic kidney disease. 8.Hypertension. 9.Mixed hyperlipidemia. 10.Hypothyroidism. Plan: We will go ahead and admit the patient to hospital for further evaluation and management of th is problem. The patient is appropriate for inpatient and is expected to spend 2 midnights in the hos pital. IV fluid will be started. Tamiflu will be started. Home medications will be given per order . DVT prophylaxis will be given per order. We will repeat blood work tomorrow morning. I will see him in the morning for followup. NADIA/WILLIAM Voice ID: [id number]
[2018-12-01] MEDS: ATORVASTATIN 20 MG TAB PO SCH (20:54)
--- NOTE | 2018-12-01 21:43 | PN ---
Date of Progress Note: 12/01/2018 Subjective: The patient was seen this morning for followup. No new complaints or problems reported by patient. Lying in bed, not in distress. His was present with him at bedside. Objective: Vital Signs: Reviewed. HEENT: Unremarkable. Lungs: Clear to auscultation. Heart: Sounds normal. Abdomen: Soft. Bowel sounds normal. No guarding, rigidity, tenderness, or distention. Extremities: No leg edema. Laboratory Data: White count 5.5, hemoglobin 9.2, platelets 127. Sodium 147, potassium 5.5, chlorid e 119, bicarb 21, BUN 71, creatinine 3.96, glucose 73. Impression: 1.Volume depletion. 2.Influenza type B with respiratory manifestation. 3.Generalized weakness. 4.Chronic kidney disease stage 4 with acute worsening. 5.Hypertension, uncontrolled. 6.Anemia due to chronic kidney disease. 7.Hyperkalemia. Plan: We will continue IV fluid. The patient's potassium was elevated. We will give Kayexalate 30 g p.o. x1 dose. IV fluid will be continued. We will repeat blood work tomorrow. The patient's bloo d pressure was elevated throughout the day today including early this morning and his home medication s will be continued. We will give clonidine 0.1 mg every 6 hours as needed for systolic blood pressu re higher than 160. We will repeat blood work tomorrow. I will see him tomorrow for followup. Cont inue Tamiflu. Depending on his condition, we will decide if he is stable enough for discharge tomorrow or day after tomorrow. NADIA/MODL Voice ID: [id number] Report ID: [id number]
[2018-12-02] MEDS: cloNIDine HCl 0.1 MG TAB PO PRN ×2 (04:48→23:51)
[2018-12-02 06:04] LABS: Absolute Lymphocytes (CBC) 1.5 K/uL (0.7-4.9); Absolute Monocytes 0.5 K/uL (0.1-1.3); Absolute Neutrophil 2.9 K/uL (1.8-8.0); Basophils % 0.8 % (0-1.3); Eosinophils % 2.4 % (0-4.4); Hematocrit 26.9 % (39.6-49.0); Lymphocytes % 29.9 % (15.3-44.8); MPV 9.8 fL (7.6-11.3); Monocytes % 9.9 % (3.3-12.3); RBC Red Blood Cell Count 2.92 M/uL (4.33-5.43)
[2018-12-02 06:24] LABS: Potassium 4.4 mmol/L (3.5-5.1); Thyroid Stimulating Hormone 1.35 uIU/mL (0.360-3.740)
[2018-12-02] MEDS: NA CHLORIDE 0.9% 1,000 ML IV SCH ×2 (06:43→20:56)
[2018-12-02] MEDS: DOXAZOSIN 4 MG TAB PO SCH ×2 (06:43→20:59)
[2018-12-02] MEDS: HYDRALAZINE HCL 10 MG TABLET PO SCH ×3 (06:43→20:56)
[2018-12-02] MEDS: AMLODIPINE 10 MG TAB PO SCH (06:43)
[2018-12-02] MEDS: LEVOTHYROXINE SOD 0.075 MG TAB PO SCH (06:45)
[2018-12-02] MEDS: INSULIN -REGULAR HUMAN 50 UNIT/0.5 ML ML SQ SCH ×4 (07:30→21:00)
[2018-12-02] MEDS: OSELTAMIVIR PHOSPHATE 30 MG/5 ML SUSPENSION UD PO SCH (10:19)
[2018-12-02] MEDS: FOLIC ACID 1 MG TABLET PO SCH (10:20)
[2018-12-02] MEDS: ASPIRIN 81 MG CHEWABLE TABLET PO SCH (10:20)
[2018-12-02] MEDS: ALLOPURINOL 100 MG TAB PO SCH (10:20)
[2018-12-02] MEDS: FERROUS SULFATE 325 MG TAB PO SCH (10:20)
[2018-12-02] MEDS: CARVEDILOL 6.25 MG TAB PO SCH ×2 (10:21→20:57)
[2018-12-02] MEDS: DOXAZOSIN 2 MG TAB ONE ×2 (20:09→20:57)
[2018-12-02 20:53] VITALS: O2SAT 98
[2018-12-02] MEDS: ATORVASTATIN 20 MG TAB PO SCH (20:56)
[2018-12-02] MEDS ORDERED: DOXAZOSIN 2 MG TAB ONE (22:47)
--- NOTE | 2018-12-02 22:59 | PN ---
Date of Progress Note: 12/02/2018 Subjective: The patient was seen this morning for followup. No new complaints or problems reported by the patient. Overall, he feels better than before. No diarrhea. No vomiting. Objective: Vital Signs: Reviewed. HEENT: Unremarkable. Lungs: Clear to auscultation. Heart: Sounds normal. Abdomen: Soft. Bowel sounds normal. No guarding, rigidity, tenderness, or distention. Extremities: No leg edema. Laboratory Data: White count 5.1, hemoglobin 8.8, platelets 122. Sodium 147, potassium 4.4, chlorid e 118, bicarb 20, BUN 61, creatinine 3.80, glucose 95. TSH 1.35. Impression: 1.Influenza type B with respiratory manifestation. 2.Chronic kidney disease with acute worsening. 3.Anemia due to chronic kidney disease. 4.Hypertension, uncontrolled. Plan: We will go ahead and continue current antihypertensive medication per order. Continue IV flui d. Ambulation was encouraged. Renal function is improving with IV fluid hydration and we will gricelda nue Tamiflu. We will plan to discharge him to go home tomorrow and psychotherapist social worker will be consulted t o assist the patient with home health care and home physical therapy. NADIA/MODL Voice ID: [id number] Report ID: [id number]
[2018-12-03] MEDS: cloNIDine HCl 0.1 MG TAB PO PRN (05:32)
[2018-12-03] MEDS: LEVOTHYROXINE SOD 0.075 MG TAB PO SCH (05:32)
[2018-12-03] MEDS: INSULIN -REGULAR HUMAN 50 UNIT/0.5 ML ML SQ SCH (07:30)
[2018-12-03] MEDS: OSELTAMIVIR PHOSPHATE 30 MG/5 ML SUSPENSION UD PO SCH (09:00)
[2018-12-03] MEDS: HYDRALAZINE HCL 10 MG TABLET PO SCH (09:20)
[2018-12-03] MEDS: NA CHLORIDE 0.9% 1,000 ML IV SCH (09:20)
[2018-12-03] MEDS: DOXAZOSIN 4 MG TAB PO SCH (09:21)
[2018-12-03] MEDS: ALLOPURINOL 100 MG TAB PO SCH (09:21)
[2018-12-03] MEDS: CARVEDILOL 6.25 MG TAB PO SCH (09:21)
[2018-12-03] MEDS: FOLIC ACID 1 MG TABLET PO SCH (09:21)
[2018-12-03] MEDS: AMLODIPINE 10 MG TAB PO SCH (09:22)
[2018-12-03] MEDS: FERROUS SULFATE 325 MG TAB PO SCH (09:22)
[2018-12-03] MEDS: ASPIRIN 81 MG CHEWABLE TABLET PO SCH (09:22)
[2018-12-03 09:23] VITALS: BP 198/91
[2018-12-03 09:42] VITALS: TEMP 98
--- NOTE | 2018-12-03 19:57 | DS ---
Date of Discharge: 12/03/2018 Disposition: Discharged to go home. Physical Examination: HEENT: Unremarkable. Lungs: Clear to auscultation. Heart: Sounds normal. Abdomen: Soft. Bowel sounds normal. No guarding, rigidity, tenderness, distention. Extremities: No leg edema. Laboratory Data: Last blood work from yesterday sodium 147, potassium 4.4, chloride 118, bicarb 20, BUN 61, creatinine 3.80, glucose 95. Hemoglobin A1c 5.3. TSH 1.35. Upon admission, sodium 144, pot assium 6.4, chloride 115, bicarb 23, BUN 79, creatinine 4.59, glucose 88. Liver function tests unrem arkable. Procalcitonin 0.22. Hospital Course: Mr. Carbajal is a pleasant 73-year-old male patient, came into office for his routin e followup visit. At that time, he reported that he was not feeling good. The patient's was wi th him. For last 2 weeks, he is having increasing problem with poor appetite, feeling weak, unsteady on his feet requiring assistance to get up and move around, having some cough, congestion, not able to cough up any mucus. After I saw him, he was sent to emergency room. Further evaluation in emerge ncy room revealed that he was positive for influenza type B and had elevated potassium and acute linda l failure on top of his underlying chronic kidney disease problem. So, he was admitted to the hospit al. IV fluid was started. Tamiflu was started for influenza. Overall, his condition has improved s ignificantly. His appetite is better. Cough, congestion are better. There was no pneumonia noted o n the chest x-ray or clinical findings. Renal function has improved with IV fluid hydration, and bere vated potassium was corrected and that is normal now. Physical therapy and home health service to be provided upon discharge. Social Service was consulted to assist with these arrangements. His blood pressure was elevated during this hospitalization, and we did have to make adjustment on his antihyp ertensive medication. We will continue to monitor that upon discharge from hospital and make any fur ther adjustment as it becomes necessary. Final Diagnoses: 1.Acute renal failure. 2.Hyperkalemia. 3.Volume depletion. 4.Chronic kidney disease, stage 4. 5.Influenza B with respiratory manifestation. 6.Urinary tract infection. 7.Anemia due to chronic kidney disease. 8.Diabetes mellitus with chronic kidney disease. 9.Hypertension. 10.Mixed hyperlipidemia. 11.Hypothyroidism. Discharge Medications And Instructions: 1.Continue all prior home medications, except change hydralazine 10 mg tablet. The patient to take 3 tablets by mouth 3 times a day. 2.Follow up at my office on 12/08/2018 at 9 a.m., and the patient to bring all his medications at th at time to the office. 3.Tamiflu 30 mg daily for 2 days, and nursing staff to call the prescription to patient's pharmacy. NADIA/WILLIAM Voice ID: [id number] Report ID: [id number]
== END 2018-12-03 11:39 | disposition home health service (06) | DRG 683 ==
LOC: ER 11:48 → ERHOLD 14:29 → 4TH 15:09 → 2ND 12-02 18:47
PROVIDERS: ADMIT Internal Medicine; ATTEND Internal Medicine
DX: N17.9 Acute kidney failure, unspecified (principal); N39.0 Urinary tract infection, site not specified; E86.9 Volume depletion, unspecified; J10.1 Influenza due to other identified influenza virus with other respiratory manifestations; N18.4 Chronic kidney disease, stage 4 (severe); I12.9 Hypertensive chronic kidney disease with stage 1 through stage 4 chronic kidney disease, or unspecified chronic kidney disease; E11.22 Type 2 diabetes mellitus with diabetic chronic kidney disease; E87.5 Hyperkalemia; D63.1 Anemia in chronic kidney disease; E78.2 Mixed hyperlipidemia; E03.9 Hypothyroidism, unspecified
CPT/HCPCS: 36415; 71045; 80048; 80076; 81003; 81015; 82962; 83036; 83605; 83735; 83880; 84145; 84443; 84484; 85025; 85610; 87040; 87077; 87086; 87088; 87186; 87804; 93005; 96361; 96374; 96375; 99285; G9035; J2405; J7030

== ENCOUNTER → 2018-12-19 | Day surgery (SDC) | payer OTHER ==
--- OUTSIDE RECORDS SUMMARY | 2018-12-19 09:13 | XMS REPORT | Clinical Summary ---
:1945 Author Organization [facility] Address [address] [place] [address] Care Team Providers Name Role Phone Asked, [...] Refill Rheumatology Juan Pablo Branham MD after 12/18/2017 Family History Medical History Relation Name Comments [...] INFLUENZA VACCINE 03/02/2019 Results Not on fileafter 12/18/2017 Insurance Payer Benefit Plan / Subscriber ID Effective Dates Phone Address Type Group MEDICARE MEDICARE PART A xxxxxxxxxx 1996-Present [place], [place] Medicare AND B AETNA AETNA HMO,POS,EPO, xxxxxxxxxx 2000-Present HMO [facility] Advance Directives Patient has advance care planning documents on file. For more information, please contact:Toro [id number] [place] [address]
--- OUTSIDE RECORDS SUMMARY | 2018-12-19 09:13 | XMS REPORT ---
:1945 Author Organization [facility] Address [address] [place] [address] Dr. Crowley[address] [place] [address] Care Team Providers Name Role Phone Unavailable Unavailable Unavailable Problems This patient has no known problems. Allergies, Adverse Reactions, Alerts This patient has no known allergies or adverse reactions. Medications This patient has no known medications.
[2018-12-19 09:25] VITALS: BMI 26.6
[2018-12-19 09:26] VITALS: BP 164/70; TEMP 98.9; O2SAT 100
[2018-12-19 10:09] LABS: Hematocrit 25.9 % (39.6-49.0)
== END ==
LOC: DS 09:06
PROVIDERS: ATTEND Internal Medicine Nephrology
DX: I12.9 Hypertensive chronic kidney disease with stage 1 through stage 4 chronic kidney disease, or unspecified chronic kidney disease (principal); N18.4 Chronic kidney disease, stage 4 (severe); D63.1 Anemia in chronic kidney disease; E11.22 Type 2 diabetes mellitus with diabetic chronic kidney disease; E11.42 Type 2 diabetes mellitus with diabetic polyneuropathy; E78.2 Mixed hyperlipidemia; E03.9 Hypothyroidism, unspecified; E87.5 Hyperkalemia; E87.2 Acidosis; R80.8 Other proteinuria; R60.0 Localized edema; D50.9 Iron deficiency anemia, unspecified; K21.9 Gastro-esophageal reflux disease without esophagitis; E21.1 Secondary hyperparathyroidism, not elsewhere classified; N25.0 Renal osteodystrophy; E55.9 Vitamin D deficiency, unspecified; N40.1 Benign prostatic hyperplasia with lower urinary tract symptoms; J30.1 Allergic rhinitis due to pollen; M32.9 Systemic lupus erythematosus, unspecified; M06.9 Rheumatoid arthritis, unspecified; M54.5 Low back pain; M47.816 Spondylosis without myelopathy or radiculopathy, lumbar region; M17.0 Bilateral primary osteoarthritis of knee; M25.561 Pain in right knee; M25.562 Pain in left knee; D47.2 Monoclonal gammopathy
CPT/HCPCS: 36415; 85018; 85014; 96372; J0885

== ENCOUNTER 2019-01-24 08:55 | Day surgery (SDC) | payer OTHER ==
--- OUTSIDE RECORDS SUMMARY | 2019-01-24 09:09 | XMS REPORT | Clinical Summary ---
:1945 Author Organization [facility] Address [address] [place] [address] Care Team Providers Name Role Phone Asked, [...] DIABETIC FOOT EXAM 1954 URINE MICROALBUMIN 1954 COLONOSCOPY SCREENING 1994 SHINGLES VACCINES (#1) 1994 65+ PNEUMOCOCCAL VACCINE (1 of 2 - PCV13) 2009 INFLUENZA VACCINE 03/02/2019 Results Not on fileafter 01/23/2018 Insurance Payer Benefit Plan / Subscriber ID Effective Dates Phone Address Type Group MEDICARE MEDICARE PART A xxxxxxxxxx 1996-Present [place], [place] Medicare AND B AETNA AETNA HMO,POS,EPO, xxxxxxxxxx 2000-Present HMO [employer] Advance Directives Patient has advance care planning documents on file. For more information, please contact:Toro Smith[address] [place] [address]
--- OUTSIDE RECORDS SUMMARY | 2019-01-24 09:09 | XMS REPORT ---
:1945 [facility] Address [address] [place] [address] Dr. Crowley. [address] [place] [address] Care Team Providers Name Role Phone Unavailable Unavailable Unavailable Problems This patient has no known problems. Allergies, Adverse Reactions, Alerts This patient has no known allergies or adverse reactions. Medications This patient has no known medications.
[2019-01-24 09:34] LABS: Hematocrit 25.6 % (39.6-49.0)
[2019-01-24] MEDS ORDERED: EPOETIN ALFA 10,000 UNIT/ML ONE (10:08)
[2019-01-24 10:27] VITALS: BP 168/66; TEMP 97.7; O2SAT 100
[2019-01-24 10:28] VITALS: BMI 25.7
== END 2019-01-24 10:00 | disposition home or self-care (01) ==
LOC: DS 08:55
PROVIDERS: ATTEND Internal Medicine Nephrology
DX: I12.9 Hypertensive chronic kidney disease with stage 1 through stage 4 chronic kidney disease, or unspecified chronic kidney disease (principal); N18.4 Chronic kidney disease, stage 4 (severe); E11.22 Type 2 diabetes mellitus with diabetic chronic kidney disease; D63.1 Anemia in chronic kidney disease; E87.5 Hyperkalemia; E87.2 Acidosis; R80.8 Other proteinuria; R60.0 Localized edema; E11.42 Type 2 diabetes mellitus with diabetic polyneuropathy; E78.2 Mixed hyperlipidemia; E03.9 Hypothyroidism, unspecified; I87.9 Disorder of vein, unspecified; D50.9 Iron deficiency anemia, unspecified; K21.9 Gastro-esophageal reflux disease without esophagitis; J30.1 Allergic rhinitis due to pollen; E21.1 Secondary hyperparathyroidism, not elsewhere classified; N25.0 Renal osteodystrophy; E55.9 Vitamin D deficiency, unspecified; N40.1 Benign prostatic hyperplasia with lower urinary tract symptoms; M32.9 Systemic lupus erythematosus, unspecified; M06.9 Rheumatoid arthritis, unspecified; M54.5 Low back pain; G89.29 Other chronic pain; M47.818 Spondylosis without myelopathy or radiculopathy, sacral and sacrococcygeal region; M17.0 Bilateral primary osteoarthritis of knee; D47.2 Monoclonal gammopathy
CPT/HCPCS: 36415; 85018; 85014; 96372; J0885

== ENCOUNTER → 2019-04-25 | Day surgery (SDC) | payer OTHER ==
--- OUTSIDE RECORDS SUMMARY | 2019-04-11 09:11 | XMS REPORT | Clinical Summary ---
:1945 Author Organization [facility] Address [address] [place] [address] Care Team Providers Name Role Phone Asked, [...] INFLUENZA VACCINE 03/02/2019 Results Not on fileafter 04/10/2018 Insurance Payer Benefit Plan / Subscriber ID Effective Dates Phone Address Type Group MEDICARE MEDICARE PART A xxxxxxxxxx 1996-Present [place], [place] Medicare AND B AETNA AETNA HMO,POS,EPO, xxxxxxxxxx 2000-Present HMO [employer] Advance Directives For more information, please contact: [phone] Type Date Recorded Patient Pesticide Use Medical Coordinator Explanation Advance Directives, Living Will and Medical Power of Sole Molder
--- OUTSIDE RECORDS SUMMARY | 2019-04-11 09:11 | XMS REPORT ---
:1945 [facility] Address [address] [place] [address] Dr. Crowley. [address] [place] [address] Care Team Providers Name Role Phone Unavailable Unavailable Unavailable Problems This patient has no known problems. Allergies, Adverse Reactions, Alerts This patient has no known allergies or adverse reactions. Medications This patient has no known medications.
[2019-04-11 09:33] VITALS: BMI 3905.5
[2019-04-11 09:54] LABS: Hematocrit 28.5 % (39.6-49.0)
[~2019-04-25] MED LIST changes: -EPOETIN ALFA 10,000 UNIT/ML ONE; +EPOETIN ALFA-EPBX 10,000 UNIT/ML VIAL ONE
[2019-04-25 09:22] VITALS: BP 153/70; TEMP 98.4; O2SAT 100
--- OUTSIDE RECORDS SUMMARY | 2019-06-09 14:51 | XMS REPORT ---
:1945 [facility] Address [address] [place] [address] Dr. Crowley[address] [place] [address] Care Team Providers Name Role Phone Unavailable Unavailable Unavailable Problems This patient has no known problems. Allergies, Adverse Reactions, Alerts This patient has no known allergies or adverse reactions. Medications This patient has no known medications.
== END ==
LOC: DS 04-11 09:09
PROVIDERS: ATTEND Internal Medicine Nephrology
DX: I13.11 Hypertensive heart and chronic kidney disease without heart failure, with stage 5 chronic kidney disease, or end stage renal disease (principal); E11.22 Type 2 diabetes mellitus with diabetic chronic kidney disease; N18.5 Chronic kidney disease, stage 5; D63.1 Anemia in chronic kidney disease; D50.9 Iron deficiency anemia, unspecified; E87.5 Hyperkalemia; E87.2 Acidosis; R80.8 Other proteinuria; R60.0 Localized edema; E11.42 Type 2 diabetes mellitus with diabetic polyneuropathy; E78.2 Mixed hyperlipidemia; E03.8 Other specified hypothyroidism; I67.9 Cerebrovascular disease, unspecified; K21.9 Gastro-esophageal reflux disease without esophagitis; E21.1 Secondary hyperparathyroidism, not elsewhere classified; N25.0 Renal osteodystrophy; E55.9 Vitamin D deficiency, unspecified; N40.1 Benign prostatic hyperplasia with lower urinary tract symptoms; M32.9 Systemic lupus erythematosus, unspecified; M06.9 Rheumatoid arthritis, unspecified; M54.5 Low back pain; M47.816 Spondylosis without myelopathy or radiculopathy, lumbar region; D47.2 Monoclonal gammopathy; M17.0 Bilateral primary osteoarthritis of knee; M25.561 Pain in right knee; M25.562 Pain in left knee; J30.1 Allergic rhinitis due to pollen
CPT/HCPCS: 36415; 85018; 85014; 96372 ×2; J0583 ×2

== ENCOUNTER 2019-10-26 09:57 | Emergency (ER) | payer OTHER ==
--- OUTSIDE RECORDS SUMMARY | 2019-10-26 10:02 | XMS REPORT ---
:1945 [facility] Address [address] [place] [address] Dr. Crowley. [address] [place] [address] Care Team Providers Name Role Phone Unavailable Unavailable Unavailable Problems This patient has no known problems. Allergies, Adverse Reactions, Alerts This patient has no known allergies or adverse reactions. Medications This patient has no known medications.
--- NOTE | 2019-10-26 11:20 | ER ---
Nurse's Notes [facility] Name: Jozef Carbajal Age: 74 yrs Sex: Male : 1945 Arrival Date: 10/26/2019 Time: 10:02 Bed 6 Private MD: Justin Vanessa C Diagnosis: Influenza due to certain identified influenza viruses Presentation: 10/25 10:05 Chief complaint: Patient states: Cough, congestion and fever since last Wednesday. Pt is ca1 on dialysis T,, Sat. Coronavirus screen: Patient reports a subjective fever or greater than 100.4F, or cough, or shortness of breath, or difficulty breathing. Surgical mask placed on patient. Patient moved to private room, placed in contact and droplet isolation with eye protection until further assessment. Patient denies travel on a cruise ship or to a country the [facility] currently lists as an affected area. Patient denies contact with known and/or suspected case of COVID-19. Infection Prevention Nurse has been notified of patient in isolation for probable COVID-19. Ebola Screen: Patient negative for fever greater than or equal to 101.5 degrees Fahrenheit, and additional compatible Ebola Virus Disease symptoms Patient denies exposure to infectious person. Patient denies travel to an Ebola-affected area in the 21 days before illness onset. No symptoms or risks identified at this time. Initial Sepsis Screen: Does the patient meet any 2 criteria? No. Patient's initial sepsis screen is negative. Does the patient have a suspected source of infection? No. Patient's initial sepsis screen is negative. Risk Assessment: Do you want to hurt yourself or someone else? Patient reports no desire to harm self or others. Onset of symptoms was October 26, 2019. 10:05 Method Of Arrival: Ambulatory ca1 10:05 Acuity: CARLOS MANUEL 3 ca1 Triage Assessment: 10:05 General: Appears in no apparent distress. comfortable, Behavior is cooperative, bp appropriate for age, anxious, SENT FROM DR RUTH FOR COVID R/O. Pain: Denies pain. EENT: No deficits noted. Neuro: No deficits noted. Cardiovascular: No deficits noted. Respiratory: Reports cough that is. GI: No signs and/or symptoms were reported involving the gastrointestinal system. : No signs and/or symptoms were reported regarding the genitourinary system. Derm: No deficits noted. Musculoskeletal: No deficits noted. Historical: - Allergies: 10:08 No Known Allergies; ca1 - Home Meds: 10:15 hydralazine 50 mg oral tab 1 tab 2 times per day [Active]; allopurinol 100 mg Oral tab ca1 1 tab once daily [Active]; levothyroxine 50 mcg oral tab 1 tab once daily [Active]; folic acid 1 mg Oral tab 1 tab once daily [Active]; amlodipine 10 mg tab 1 tab once daily [Active]; atorvastatin 20 mg Oral tab 1 tab once daily [Active]; aspirin 81 mg Oral TbEC 1 tab once daily [Active]; doxazosin 4 mg Oral tab 1 tab twice a day [Active]; carvedilol 3.125 mg Oral tab 1 tab 2 times per day [Active]; - PMHx: 10:08 Anemia; Diabetes - NIDDM; Hypertension; Hypothyroidism; Lupus; Renal Disease; ca1 - PSHx: 10:08 Cholecystectomy; ca1 - Immunization history:: Adult Immunizations up to date, Pneumococcal vaccine is up to date, Flu vaccine is up to date. - Social history:: Smoking status: Patient denies any tobacco usage or history of. Screenin:21 Abuse screen: Denies threats or abuse. Denies injuries from another. Nutritional bp screening: No deficits noted. Tuberculosis screening: No symptoms or risk factors identified. Fall Risk None identified. Assessment: 10:05 General: SEE TRIAGE NOTE. bp 10:38 Reassessment: FLU AND COVID SWABS COMPLETED AND WALKED TO LAB. bp Vital Signs: 10:05 BP 122 / 65; Pulse 63; Resp 17 S; Temp 98.2(TE); Pulse Ox 99% on R/A; Weight 89.81 kg ca1 (R); Height 6 ft. 0 in. (182.88 cm) (R); Pain 0/10; 10:05 Body Mass Index 26.85 (89.81 kg, 182.88 cm) ca1 ED Course: 10:02 Patient arrived in ED. ag5 10:02 Justin Vanessa MD is Private Physician. ag5 10:07 Triage completed. ca1 10:08 Arm band placed on right wrist. ca1 10:11 Samson Longo RN is Primary Nurse. bp 10:11 Amos Zhao MD is Attending Physician. kdr 10:13 Gurwinder Baker PA is PHCP. jr8 10:13 Amos Zhao MD is Attending Physician. jr8 10:21 Patient has correct armband on for positive identification. Bed in low position. Call bp light in reach. Side rails up X2. 10:45 Chest Single View XRAY In Process Unspecified. EDMS 11:19 Justin Vanessa MD is Referral Physician. jr8 11:33 No provider procedures requiring assistance completed. Patient did not have IV access em during this emergency room visit. 11:48 Health Dept notified COVID test sent to lab / PUI # [id number] /lab notified. eb Administered Medications: No medications were administered Outcome: 11:19 Discharge ordered by . jr8 11:33 Discharged to home ambulatory. em 11:33 Condition: good 11:33 Discharge instructions given to patient, Instructed on discharge instructions, follow up and referral plans. Demonstrated understanding of instructions, follow-up care. 11:33 Patient left the ED. em Addendum: 10/28/2019 13:53 Addendum: Other attempted to contact pt regarding COVID-19 swab results, no answer, no d m5 ability to leave message for pt to return my call. Signatures: Dispatcher [employer] EDMN Mckayla Miller, VAMSHI BONDS [id number] Amos Zhao MD MD kdr Munoz, Edgar RN RN Gurwinder Sanderson PA PA jr8 Samson Longo RN RN bp Botello, Elizabeth eb Acob, Cheryl, RN RN [facility] Jamia Dickinson 5
--- NOTE | 2019-10-26 11:21 | EDPHYS ---
Physician Documentation [facility] Name: Jozef Carbajal Age: 74 yrs Sex: Male : 1945 Arrival Date: 10/26/2019 Time: 10:02 Bed 6 Private MD: Justin Vanessa C ED Physician Amos Zhao HPI: 10/25 11:15 This 74 yrs old Black Male presents to ER via Ambulatory with complaints of Cough, jr8 Fever. 11:15 The patient or guardian reports cough, that is intermittent, described as mild, with no jr8 sputum. Onset: The symptoms/episode began/occurred gradually, 5 day(s) ago. Severity of symptoms: At their worst the symptoms were mild, in the emergency department the symptoms are unchanged. Modifying factors: The symptoms are alleviated by nothing, the symptoms are aggravated by nothing. Associated signs and symptoms: Pertinent positives: fever, rhinorrhea, sore throat. The patient has not experienced similar symptoms in the past. The patient has not recently seen a physician. Historical: - Allergies: 10:08 No Known Allergies; ca1 - Home Meds: 10:15 hydralazine 50 mg oral tab 1 tab 2 times per day [Active]; allopurinol 100 mg Oral tab ca1 1 tab once daily [Active]; levothyroxine 50 mcg oral tab 1 tab once daily [Active]; folic acid 1 mg Oral tab 1 tab once daily [Active]; amlodipine 10 mg tab 1 tab once daily [Active]; atorvastatin 20 mg Oral tab 1 tab once daily [Active]; aspirin 81 mg Oral TbEC 1 tab once daily [Active]; doxazosin 4 mg Oral tab 1 tab twice a day [Active]; carvedilol 3.125 mg Oral tab 1 tab 2 times per day [Active]; - PMHx: 10:08 Anemia; Diabetes - NIDDM; Hypertension; Hypothyroidism; Lupus; Renal Disease; ca1 - PSHx: 10:08 Cholecystectomy; ca1 - Immunization history:: Adult Immunizations up to date, Pneumococcal vaccine is up to date, Flu vaccine is up to date. - Social history:: Smoking status: Patient denies any tobacco usage or history of. ROS: 11:15 Eyes: Negative for injury, pain, redness, and discharge, Neck: Negative for injury, jr8 pain, and swelling, Cardiovascular: Negative for chest pain, palpitations, and edema, Abdomen/GI: Negative for abdominal pain, nausea, vomiting, diarrhea, and constipation, Back: Negative for injury and pain, MS/Extremity: Negative for injury and deformity, Skin: Negative for injury, rash, and discoloration, Neuro: Negative for headache, weakness, numbness, tingling, and seizure. 11:15 Constitutional: Positive for fever. 11:15 ENT: Positive for rhinorrhea, sinus congestion, sore throat. 11:15 Respiratory: Positive for cough, Negative for dyspnea on exertion, shortness of breath, sputum production, wheezing. Exam: 11:15 Eyes: Pupils equal round and reactive to light, extra-ocular motions intact. Lids and jr8 lashes normal. Conjunctiva and sclera are non-icteric and not injected. Cornea within normal limits. Periorbital areas with no swelling, redness, or edema. ENT: Nares patent. No nasal discharge, no septal abnormalities noted. Tympanic membranes are normal and external auditory canals are clear. Oropharynx with no redness, swelling, or masses, exudates, or evidence of obstruction, uvula midline. Mucous membranes moist. Neck: Trachea midline, no thyromegaly or masses palpated, and no cervical lymphadenopathy. Supple, full range of motion without nuchal rigidity, or vertebral point tenderness. No Meningismus. Cardiovascular: Regular rate and rhythm with a normal S1 and S2. No gallops, murmurs, or rubs. Normal PMI, no JVD. No pulse deficits. Respiratory: Lungs have equal breath sounds bilaterally, clear to auscultation and percussion. No rales, rhonchi or wheezes noted. No increased work of breathing, no retractions or nasal flaring. Abdomen/GI: Soft, non-tender, with normal bowel sounds. No distension or tympany. No guarding or rebound. No evidence of tenderness throughout. Back: No spinal tenderness. No costovertebral tenderness. Full range of motion. Skin: Warm, dry with normal turgor. Normal color with no rashes, no lesions, and no evidence of cellulitis. MS/ Extremity: Pulses equal, no cyanosis. Neurovascular intact. Full, normal range of motion. Neuro: Awake and alert, GCS 15, oriented to person, place, time, and situation. Cranial nerves II-XII grossly intact. Motor strength 5/5 in all extremities. Sensory grossly intact. Cerebellar exam normal. Normal gait. Vital Signs: 10:05 BP 122 / 65; Pulse 63; Resp 17 S; Temp 98.2(TE); Pulse Ox 99% on R/A; Weight 89.81 kg ca1 (R); Height 6 ft. 0 in. (182.88 cm) (R); Pain 0/10; 10:05 Body Mass Index 26.85 (89.81 kg, 182.88 cm) ca1 MDM: 10:13 Patient medically screened. jr8 11:19 Data reviewed: vital signs, nurses notes, lab test result(s), Flu: positive radiologic jr8 studies, plain films. Data interpreted: Pulse oximetry: on room air is 99 %. Interpretation: normal. Counseling: I had a detailed discussion with the patient and/or guardian regarding: the historical points, exam findings, and any diagnostic results supporting the discharge/admit diagnosis, lab results, radiology results, the need for outpatient follow up, a family practitioner, to return to the emergency department if symptoms worsen or persist or if there are any questions or concerns that arise at home. 10/25 10:14 Order name: Influenza Screen (a \T\ B); Complete Time: 11:16 8 10/25 10:14 Order name: Chest Single View XRAY [facility] 10/25 10:37 Order name: Misc. Lab Test [facility] Administered Medications: No medications were administered Disposition: 10/26 07:05 Co-signature as Attending Physician, Amos Zhao MD I agree with the assessment and kdr plan of care. Disposition: 10/26/19 11:19 Discharged to Home. Impression: Influenza due to certain identified influenza viruses. - Condition is Stable. - Discharge Instructions: Influenza, Adult. - Medication Reconciliation Form, Thank You Letter, Antibiotic Education, Prescription Opioid Use form. - Follow up: Justin Vnaessa MD; When: 2 - 3 days; Reason: Recheck today's complaints, Continuance of care, Re-evaluation by your physician. - Problem is new. - Symptoms have improved. Signatures: Dispatcher [employer] Amos Blanco MD MD [facility] Robert Esteves RN RN em Roszak, Josh, PA PA 8 Desiree Baron RN RN ca1 Corrections: (The following items were deleted from the chart) 10/25 11:33 11:19 10/26/2019 11:19 Discharged to Home. Impression: Influenza due to certain em identified influenza viruses. Condition is Stable. Forms are Medication Reconciliation Form, Thank You Letter, Antibiotic Education, Prescription Opioid Use. Follow up: A Vanessa; When: 2 - 3 days; Reason: Recheck today's complaints, Continuance of care, Re-evaluation by your physician. Problem is new. Symptoms have improved. jr8
--- NOTE | 2019-10-26 11:27 | RAD REPORT ---
EXAM DESCRIPTION: RAD - Chest Single View - 10/26/2019 10:34 am CLINICAL HISTORY: COUGH, congestion, fever COMPARISON: Chest exam July 2019 TECHNIQUE: AP portable chest image was obtained 10/26/2019 10:34 am . FINDINGS: Lung volumes are low. This accentuates lung base markings. No dense consolidation. Acute p neumonia is not likely. Follow-up imaging with improved inspiration would be recommended if the patie nt has continued, unexplained symptoms. Passes catheter remains in place on the right. No significant failure or volume overload. Heart and vasculature are normal. No measurable pleural effusion and no pneumothorax. No acute bony abnormality seen. No acute aortic findings suspected. IMPRESSION: No acute cardiopulmonary process confirmed. Low lung volumes cause lung base atelectasis potentially masking early infiltrate. Follow-up imaging with improved inspiration could be performed if the patient remains symptomatic.
[2019-10-26 12:15] VITALS: BP 122/65; TEMP 98.2; O2SAT 99
== END 2019-10-26 11:33 | disposition home or self-care (01) ==
LOC: ER 09:57
DX: J10.1 Influenza due to other identified influenza virus with other respiratory manifestations (principal); Z03.818 Encounter for observation for suspected exposure to other biological agents ruled out; I10 Essential (primary) hypertension; E11.9 Type 2 diabetes mellitus without complications; E03.9 Hypothyroidism, unspecified; Z79.82 Long term (current) use of aspirin
CPT/HCPCS: 87804 ×2; 71045; 99283; U0001

== ENCOUNTER 2021-08-06 09:12 | Inpatient (IN) | payer OTHER ==
--- OUTSIDE RECORDS SUMMARY | 2021-08-06 09:15 | XMS REPORT | Continuity of Care Document ---
:1945 Author Organization [facility] t Address [facility] [address] [place] [address] Care Team Providers Name Role Phone Franchesca LIVINGSTON Attending Clinician Unavailable Patt Cotton DO Attending Clinician BALTAZAR Attending Clinician Unavailable BALTAZAR Admitting Clinician Unavailable Payers Payer Name Policy Type Policy Number Effective Date Expiration Date Jone hayward MEDICARE PART A [id number] 1996 \T\ B 00:00:00 [employer] INDEMNITY [id number] 2017 00:00:00 Problems Condition Condition Condition Status Onset Resolution Last Treating Co mments Source Name Details Category Date Date Treatment Clinician Date Bacterial Bacterial Disease Active 2013-08 Overview: Univers pneumonia pneumonia 2-08 ICD10 ity of 00:00: Diagnosis [place] [address] Term Medical Palliative Care Coordinator Branch Utility Lupus Lupus Disease Active 2013-08 Univers nephritis nephritis 08-27 ity of 00:00: [place] [address] Medical Branch Fever Fever Disease Active 2013-08 Univers 08-27 ity of 00:00: [address] Branch DM DM Disease Active 2013-08 Univers (diabetes (diabetes 08-27 ity of mellitus) mellitus) 00:00: [address] Branch HTN HTN Disease Active 2013-08 Univers (hypertens (hypertens 08-27 it y of ion) ion) 00:00: [address] Branch HLD HLD Disease Active 2013-08 Univers (hyperlipi (hyperlipi 08-27 it y of demia) demia) 00:00: [address] Branch Weakness Weakness Disease Active 2013-08 Unive rs 08-27 ity of 00:00: [address] Branch Allergies, Adverse Reactions, Alerts Allergy Allergy Status Severity Reaction(s) Onset Inactive Treating Comm ents Source Name Type Date Date Clinician NO KNOWN Drug Active Univers ALLERGIE Class [facility] [place] [facility] Social History Social Habit Start Date Stop Date Quantity Comments Source Sex Assigned At Universit [facility] of [facility] Branch Exposure to Not sure [facility] SARS-CoV-2 [place] [facility] (event) Branch Tobacco use and 2020-05-20 2020-05-20 Never used Universit y of exposure 00:00:00 00:00:00 [facility] Alcohol intake 2020-05-20 2020-05-20 Current [facility] 00:00:00 00:00:00 non-drinker of [facility] alcohol Branch (finding) Smoking Status Start Date Stop Date Source Never smoker [facility] Branch Medications Ordered Filled Start Stop Current Ordering Indication Dosage Frequency Signature Comments Components Source Medication Medication Date Date Medication? Clinician (SIG) Name Name tetanus-dip 2019-08- No .5mL 0.5 mL, Un mahsa htheria 0-19 05-20 Intramuscu ity o f toxoids 19:15: 19:26 lar, ONCE, Jonas as (TENIVAC) 00 :00 1 dose, Medical 5-2 [facility] Branch unit/0.5 mL 05/20/20 injection at 1415, 0.5 mL Routine sodium 2017-08 Yes [id number] 325mg Take 325 Un mahsa bicarbonate 2-03 mg by ity of 325 mg 15:59: mouth 2 [place] tablet 53 (two) Medical times Branch daily. levothyroxi 2017-08 Yes 75ug Take 75 Uni vers ne 75 mcg 2-03 mcg by ity of tablet 14:52: mouth daily. Medical Branch amLODIPine 2017-08 Yes 10mg Take 10 mg U nivers (NORVASC) 2-03 by mouth ity of 10 mg 14:52: daily. [place] tablet 07 Medical Branch doxazosin 4 2017-08 Yes 4mg Take 4 mg U nivers mg tablet 2-03 by mouth 2 ity of 14:52: (two) [place] times Medical daily. Branch atorvastati 2017-08 Yes [id number] .5{tbl} Take 0.5 Univers n 40 mg 2-03 tablets by ity of tablet 14:52: mouth 07 daily. Medical Branch aspirin 81 2017-08 Yes 81mg Take 81 mg U nivers mg chewable 2-03 by mouth ity of tablet 14:52: daily. [address] Branch foLIC acid 2017-08 Yes 1mg Take 1 mg Un mahsa 1 mg tablet 2-03 by mouth ity of 14:52: daily. [place] [facility] hydralAZINE 2017-0 Yes 10mg Take 10 mg Univers 10 mg 5-23 by mouth ity of tablet 00:00: daily. [place] [facility] carvedilol 2017- Yes 1{tbl} Take 1 Uni vers 6.25 mg 4-26 tablet by ity of tablet 00:00: mouth [place] daily. [facility] Immunizations Ordered Filled Immunization Date Status Comments [facility] Immunization Name Name Td 2020-05-20 Completed University 00:00:00 [facility] Vital Signs Vital Name Observation Time Observation Value Comments Source Systolic blood 2020-05-20 19:00:00 175 mm[Hg] Univer sity of pressure [facility] Diastolic blood 2020-05-20 19:00:00 78 mm[Hg] Unive rsity of [facility] Heart rate 2020-05-20 19:00:00 68 /min [facility] Respiratory rate 2020-05-20 19:00:00 18 /[facility] O[facility] saturation in 2020-05-20 19:00:00 99 /min [facility] Arterial blood by [facility] Pulse oximetry [place] Body temperature 2020-05-20 17:34:00 37.33 [facility] Body weight 2020-05-20 17:34:00 85.276 kg [facility] BMI 2020-05-20 17:34:00 25.50 kg/m2 [facility] Procedures Procedure Date / Time Performed Performing Clinician [facility] CT CERVICAL SPINE WO 2020-05-20 18:51:43 Gina Cotton [facility] CONTRAST [facility] CT HEAD WO CONTRAST 2020-05-20 18:51:43 Gina Cotton [facility] CONSENT/REFUSAL FOR 2020-05-20 17:26:43 [facility] Unassigned, [facility] AND Name Medical [place] TREATMENT NOTICE OF PRIVACY 2020-05-20 17:26:25 Doctor Unassigned, No [facility] PR[facility] Name Medical [place] Encounters Start End Encounter Admission Attending Care Care Encounter Source Date/Time Date/Time Type Type Clinicians Facility Department ID 2021-05-30 Emergency [facility] [id number] [facility] 23:43:30 ity of [facility] 2020-11-07 2020-11-07 Outpatient R MIKI, [facility] [id number] Univers 16:00:00 16:00:00 ZURDO ity of [facility] 2020-11-07 2020-11-07 Outpatient [facility] [id number] Univers 09:30:00 09:30:00 ity of [facility] 2020-10-16 2020-10-16 Outpatient [facility] [id number] Univers 09:30[facility]00 [facility] 2020-05-20 2020-05-20 Emergency [facility] [id number] Univers 12:30:00 14:38:00 Gina Mcbride [id number] [facility] [id number] [facility] [id number] [facility] 084 Branch 2019-08-07 2019-08-07 Outpatient [facility] [id number] [place] 00:00:00 00:00:00 ARABELLA [address] Results Test Test Test Results Result Source Description Time Comments Comments CT Head W/O 2020-05- Right posterior parietal University of Contrast 19 scalp soft tissue [facility] 19:03:28 swelling/edema Branch withoutunderlying calvarial fracture or acute intracranial abnormality No acute cervical fracture or traumatic malalignment Incidentally noted nonspecific enlargement of the right submandibulargland.CT HEAD WO CONTRAST, CT CERVICAL SPINE WO CONTRAST HISTORY: Male 74 years fall, elderly COMPARISON: MRI brain dated 06/27/2014 TECHNIQUE: Routine CT head and CT cervical spine without contrast FINDINGS: A right parietal subgaleal fluid collection with overlying edema is noted. The ventricles and cerebral sulci are unchanged in caliber andconfiguration. Mild global volume loss is redemonstrated. No hydrocephalus,midline shift or pathological extra-axial fluid collection is present. Thebasal cisterns are unremarkable. No acute intracranial hemorrhage or mass effect is present. The wan-whitematter differentiation is preserved. A remote lacunar infarct is again seenin the left thalamocapsular junction. The calvarium and skull base are unremarkable. The mastoid air cells andvisualized paranasal air sinuses are clear. CT cervical spine: Grade 1 anterolisthesis and C4 over C5 contributes to mild reversal of thenormal cervical lordosis. The vertebral bodies are normal in height and inotherwise normal alignment. Slight levocurvature is noted. No facetfracture or subluxation is present. The craniocervical junction is intact.The prevertebral soft tissues are unremarkable. 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 Nonspecific enlargement of the right submandibular gland is incidentallynoted. [facility], Radiant Results Inft User - 05/20/2020 2:04 PM CDTCT HEAD WO CONTRAST, CT CERVICAL SPINE WO CONTRASTHISTORY: Male 74 years fall, elderly COMPARISON: MRI brain dated 06/27/2014TECHNIQUE: Routine CT head and CT cervical spine without contrastFINDINGS:A right parietal subgaleal fluid collection with overlying edema is noted.The ventricles and cerebral sulci are unchanged in caliber andconfiguration. Mild global volume loss is redemonstrated. No hydrocephalus,midline shift or pathological extra-axial fluid collection is present. Thebasal cisterns are unremarkable.No acute intracranial hemorrhage or mass effect is present. The wan-whitematter differentiation is preserved. 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 The mastoid air cells andvisualized paranasal air sinuses are clear.CT cervical spine:Grade 1 anterolisthesis and C4 over C5 contributes to mild reversal of thenormal cervical lordosis. The vertebral bodies are normal in height and inotherwise normal alignment. Slight levocurvature is noted. No facetfracture or subluxation is present. 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 CT Cervical 2020-05- Right posterior parietal [facility] of Spine W/O 19 scalp soft tissue [place] [facility] Contrast 19:03:28 swelling/edema Branch withoutunderlying calvarial fracture or acute intracranial abnormality No acute cervical fracture or traumatic malalignment Incidentally noted nonspecific enlargement of the right submandibulargland.CT HEAD WO CONTRAST, CT CERVICAL SPINE WO CONTRAST HISTORY: Male 74 years fall, elderly COMPARISON: MRI brain dated 06/27/2014 TECHNIQUE: Routine CT head and CT cervical spine without contrast FINDINGS: A right parietal subgaleal fluid collection with overlying edema is noted. The ventricles and cerebral sulci are unchanged in caliber andconfiguration. Mild global volume loss is redemonstrated. No hydrocephalus,midline shift or pathological extra-axial fluid collection is present. Thebasal cisterns are unremarkable. No acute intracranial hemorrhage or mass effect is present. The wan-whitematter differentiation is preserved. A remote lacunar infarct is again seenin the left thalamocapsular junction. The calvarium and skull base are unremarkable. The mastoid air cells andvisualized paranasal air sinuses are clear. CT cervical spine: Grade 1 anterolisthesis and C4 over C5 contributes to mild reversal of thenormal cervical lordosis. The vertebral bodies are normal in height and inotherwise normal alignment. Slight levocurvature is noted. No facetfracture or subluxation is present. The craniocervical junction is intact.The prevertebral soft tissues are unremarkable. 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 Nonspecific enlargement of the right submandibular gland is incidentallynoted. [facility], Radiant Results Inft User - 05/20/2020 2:04 PM CDTCT HEAD WO CONTRAST, CT CERVICAL SPINE WO CONTRASTHISTORY: Male 74 years fall, elderly COMPARISON: MRI brain dated 06/27/2014TECHNIQUE: Routine CT head and CT cervical spine without contrastFINDINGS:A right parietal subgaleal fluid collection with overlying edema is noted.The ventricles and cerebral sulci are unchanged in caliber andconfiguration. Mild global volume loss is redemonstrated. No hydrocephalus,midline shift or pathological extra-axial fluid collection is present. Thebasal cisterns are unremarkable.No acute intracranial hemorrhage or mass effect is present. The wan-whitematter differentiation is preserved. 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 The mastoid air cells andvisualized paranasal air sinuses are clear.CT cervical spine:Grade 1 anterolisthesis and C4 over C5 contributes to mild reversal of thenormal cervical lordosis. The vertebral bodies are normal in height and inotherwise normal alignment. Slight levocurvature is noted. No facetfracture or subluxation is present. 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
--- NOTE | 2021-08-06 09:53 | RAD REPORT ---
EXAM DESCRIPTION: CTAbdomen Pelvis Wo Contrast - 08/06/2021 9:41 am CLINICAL HISTORY: fever/diarrhea/AMS COMPARISON: CT ABDOMEN PELVIS WO CONTRAST dated 08/06/2014; CT ABD PELVIS W WO CONTRAST dated 09/04/2002 ; Chest Single View dated 10/26/2019 TECHNIQUE: CT of the abdomen and pelvis was performed. All CT scans are performed using dose optimization technique as appropriate and may include automated exposure control or mA/KV adjustment according to patient size. FINDINGS: Lower chest: Small bilateral pleural effusions. Interlobular septal thickening and ground- glass opacities predominantly in the left lung base. Cardiomegaly. Aortic valve calcifications. Palma l annular calcifications. Liver: No acute abnormality or suspicious lesions. Biliary: Cholecystectomy. Stomach: No significant focal abnormality. Duodenum: No significant focal abnormality. Pancreas: No significant abnormality. Spleen: No significant abnormality. Adrenal: No suspicious lesions. Kidney/ureter: No hydronephrosis. No renal calculi. Atrophic kidneys. Retroperitoneum: No retroperitoneal adenopathy. Vascular: Atherosclerosis without aneurysm. Bowel: No evidence of appendicitis.. Peritoneum: Trace ascites. Bladder: Mild bladder wall thickening and stranding. Reproductive: No adnexal masses. Bones: The grade 1 anterolisthesis of L4 on L5. Scattered degenerative changes are present in the spi ne. Scattered dystrophic calcifications are present within the soft tissues. Other: n/a IMPRESSION: No acute intra-abdominal or pelvic finding. Partially imaged interstitial pulmonary lynne a, less likely pneumonia. Mild bladder wall thickening. Suggest correlating with urinalysis to exclud e infection.
--- NOTE | 2021-08-06 09:55 | RAD REPORT ---
EXAM DESCRIPTION: CT - Head Brain Wo Cont - 08/06/2021 9:41 am CLINICAL HISTORY: AMS COMPARISON: No comparisons TECHNIQUE: All CT scans are performed using dose optimization technique as appropriate and may inclu de automated exposure control or mA/KV adjustment according to patient size. FINDINGS: No intracranial hemorrhage, hydrocephalus or extra-axial fluid collection.Age indeterminat e left basal ganglia lacunar infarct. Mild chronic small vessel ischemic changes. The basal ganglia m ineralization. The paranasal sinuses and mastoids are clear. The calvarium is intact. IMPRESSION: Age indeterminate left basal ganglia lacunar infarct.
--- NOTE | 2021-08-06 10:03 | RAD REPORT ---
EXAM DESCRIPTION: RAD - Chest Single View - 08/06/2021 9:56 am CLINICAL HISTORY: AMS, ESRD COMPARISON: Chest Single View dated 10/26/2019; Chest Pa And Lat (2 Views) dated 07/06/2019; Chest Sin gle View dated 11/30/2018; Chest Single View dated 12/26/2017 FINDINGS: Lines: None. Lungs: Widespread bilateral airspace opacities. Pleural: No significant pleural effusions or pneumothorax. Cardiac: Increased cardiomegaly. Bones: No acute fractures. Other: IMPRESSION: Widespread bilateral airspace disease concerning for pulmonary edema.
[2021-08-06 10:23] LABS: SARS-COV-2 RT PCR NEGATIVE (NEGATIVE)
[2021-08-06 10:27] LABS: Hematocrit 39.6 % (39.6-49.0); Lymphocytes % 16.5 % (15.3-44.8); MPV 8.9 fL (7.6-11.3); RBC Red Blood Cell Count 4.23 M/uL (4.33-5.43)
[2021-08-06 10:31] LABS: Protime INR 1.03
[2021-08-06 10:57] LABS: Potassium 8.2 mmol/L (3.5-5.1)
--- NOTE | 2021-08-06 11:12 | EDPHYS ---
Physician Documentation [facility] Name: Jozef Carbajal Age: 75 yrs Sex: Male : 1945 Arrival Date: 08/06/2021 Time: 09:14 Bed 27 Private MD: ED Physician Jules Smith HPI: 08/06 09:31 This 75 yrs old Black Male presents to ER via EMS with complaints of Altered mental rn status. 09:31 The patient presents with disorientation. Onset: The symptoms/episode began/occurred 3 rn day(s) ago. Possible causes: unknown. Associated signs and symptoms: Pertinent positives: diarrhea, weakness, Pertinent negatives: abdominal pain, chest pain, headache, seizure. Current symptoms: In the emergency department the patient's symptoms are unchanged from the initial presentation. It is unknown whether or not the patient has had similar symptoms in the past. It is unknown whether or not the patient has recently seen a physician. EMS reports patient here for altered mental status, family told them had fever and diarrhea on Wednesday, last dialysis on Wednesday, supposed to have dialysis today. Family stated fever was gone but has increased weakness and confusion. No fall or trauma. Patient reports abdominal pain and feeling weak.. Historical: - Allergies: : No Known Allergies; jd3 - Home Meds: 10:15 doxazosin 4 mg oral tab [Active]; Auryxia oral [Active]; hydralazine 50 mg Oral tab jd3 [Active]; amlodipine 10 mg tab [Active]; levothyroxine 50 mcg cap [Active]; carvedilol 6.25 mg oral tab [Active]; allopurinol 100 mg Oral tab [Active]; folic acid 1 mg Oral tab [Active]; atorvastatin 20 mg oral tab [Active]; - PMHx: 09:27 Diabetes - NIDDM; Hypothyroidism; Hypertension; Lupus; Anemia; Renal Disease; jd3 - Immunization history:: Adult Immunizations unknown. - Social history:: Smoking status: unknown. - Family history:: not pertinent. - Hospitalizations: : No recent hospitalization is reported. ROS: 09:31 Constitutional: Negative for chills, and weight loss, Eyes: Negative for injury, pain, rn redness, and discharge, Neck: Negative for injury, pain, and swelling, Cardiovascular: Negative for chest pain, palpitations, and edema, Respiratory: Negative for shortness of breath, cough, wheezing, and pleuritic chest pain, Abdomen/GI: Positive for abdominal pain and diarrhea Back: Negative for injury and pain, MS/Extremity: Negative for injury and deformity, Skin: Negative for injury, rash, and discoloration, Neuro: Negative for headache, numbness, tingling, and seizure. Exam: 09:31 Constitutional: This is a well developed, well nourished patient who is awake, alert, rn and in no acute distress. Head/Face: Normocephalic, atraumatic. Eyes: Periorbital areas with no swelling, redness, or edema. Neck: Trachea midline, no masses palpated, and no cervical lymphadenopathy. Cardiovascular: Regular rate and rhythm. No pulse deficits. Respiratory: Mild tachypnea Abdomen/GI: Soft, mild mid abdominal tenderness without masses or peritoneal signs Skin: Warm, dry MS/ Extremity: Pulses equal, no cyanosis. Neurovascular intact. Full, normal range of motion. Left upper extremity fistula with thrill Neuro: Awake and alert, GCS 15, oriented to person, place, not time. Motor strength 4/5 in all extremities. Sensory grossly intact. Vital Signs: 09:27 BP 169 / 86; Pulse 84; Resp 19 S; Temp 98.8(TE); Pulse Ox 100% on R/A; Weight 81.65 kg jd3 (R); Height 6 ft. 0 in. (182.88 cm) (R); Pain 0/10; 10:14 BP 181 / 96; Pulse 81; Resp 20 S; Pulse Ox 100% on R/A; jd3 12:22 BP 176 / 98; Pulse 99; Resp 20 S; Pulse Ox 100% on R/A; jd3 16:58 BP 157 / 114; Pulse 116; Resp 20 S; Pulse Ox 100% on R/A; jd3 09:27 Body Mass Index 24.41 (81.65 kg, 182.88 cm) jd3 MDM: 09:19 Patient medically screened. rn 11:03 Differential Diagnosis: electrolyte abnormality, UTI, Volume overload, hyperkalemia, rn uremia. Data reviewed: vital signs, nurses notes, lab test result(s), EKG, radiologic studies, CT scan, plain films, and as a result, I will admit patient. Counseling: I had a detailed discussion with the patient and/or guardian regarding: the historical points, exam findings, and any diagnostic results supporting the discharge/admit diagnosis, lab results, radiology results, the need for further work-up and treatment in the hospital. Admission orders: after a detailed discussion of the patient's condition and case, the admit orders are written by me. ED course: Consulted with Dr. Avery, will call for emergent dialysis for hyperkalemia and uremia.. 08/06 09:23 Order name: CBC with Diff; Complete Time: 10:44 rn 08/06 09:23 Order name: Basic Metabolic Panel; Complete Time: 10:59 rn 08/06 09:23 Order name: Protime (+inr); Complete Time: 10:44 rn 08/06 09:23 Order name: Ptt, Activated; Complete Time: 10:44 rn 08/06 09:23 Order name: COVID-19/FLU A+B (Document "Date of Onset" if Symptomatic); Complete Time: rn 10:44 08/06 09:23 Order name: Procalcitonin; Complete Time: 18:19 rn 08/06 09:23 Order name: Lactate; Complete Time: 10:52 rn 08/06 09:23 Order name: Blood Culture Adult (2) rn 08/06 09:23 Order name: BNP; Complete Time: 10:59 rn 08/07 02:55 Order name: Glucose, Ancillary Testing EDMS 08/07 03:27 Order name: CBC with Automated Diff EDMS 08/07 04:34 Order name: Comprehensive Metabolic Panel EDMS 08/07 04:34 Order name: Uric Acid EDMS 08/07 04:34 Order name: Phosphorus EDMS 08/06 09:23 Order name: CT Head Brain wo Cont; Complete Time: 10:12 rn 08/06 09:23 Order name: IV Start; Complete Time: 10:14 rn 08/06 09:23 Order name: EKG; Complete Time: 09:24 rn 08/06 09:23 Order name: EKG - Nurse/Tech; Complete Time: 10:14 rn 08/06 09:23 Order name: XRAY Chest (1 view); Complete Time: 10:12 rn 08/06 09:30 Order name: CT Abd/Pelvis - Without Contrast; Complete Time: 10:12 rn 08/07 04:34 Order name: NT PRO-BNP EDMS 08/07 04:34 Order name: Magnesium EDMS Administered Medications: 11:41 Drug: Sodium Bicarbonate 1 amp Route: IVP; Site: right antecubital; jd3 12:40 Follow up: Response: No adverse reaction jd3 11:41 Drug: Albuterol 2.5 mg Route: Inhalation; jd3 12:40 Follow up: Response: No adverse reaction jd3 11:41 Drug: Calcium Gluconate 1 grams Route: IVPB; Infused Over: 60 mins; Site: right jd3 antecubital; 12:40 Follow up: Response: No adverse reaction; IV Status: Completed infusion jd3 11:41 Drug: Lasix (furosemide) 80 mg Route: IVP; Site: right antecubital; jd3 12:40 Follow up: Response: No adverse reaction jd3 11:42 Drug: Insulin Regular Human 5 units {Co-Signature: mg3 (Christina Velasco RN).} Route: jd3 IVP; Site: right antecubital; 12:40 Follow up: Response: No adverse reaction jd3 11:42 Drug: D50W 50 ml Route: IVP; Site: right antecubital; jd3 12:40 Follow up: Response: No adverse reaction jd3 Disposition: 11:09 Critical Care:. rn Disposition Summary: 08/06/21 11:11 Hospitalization Ordered Hospitalization Status: Inpatient Admission rn Provider: Justin Vanessa rn Condition: Stable rn Problem: new rn Symptoms: are unchanged rn Bed/Room Type: Standard rn [facility] 20[facility]48[facility] Room Assignment: [facility](08/07/21 20:48) Diagnosis - Altered mental status, unspecified rn - Hyperkalemia rn - End stage renal disease rn - Acute pulmonary edema rn Forms: - Medication Reconciliation Form rn - SBAR form internet network specialist time excluding procedures: 11:09 Critical care time: Bedside Care: 25 minutes, Consultation: 10 minutes, Family rn Intervention: 5 minutes. Total time: 40 minutes Signatures: Dispatcher [employer] EDMS Jules Smith MD MD rn Smirch, Shelby, RN RN Alie Harris RN RN Nitin Mcfarland RN RN jkatlin Velasco RN mg3 Corrections: (The following items were deleted from the chart) 14:39 11:11 Intensive Care Unit rn ss 14:39 11:11 rn ss 08/07 11:44 08/06 14:39 [facility] ER HOLD ss ss 08/07 11:44 08/06 14:39 ERHOLD- ss ss 08/07 11:44 11:44 217 ss ss 15:45 11:44 Telemetry/[facility] (Inpatient) ss ss 15:45 11:44 216 ss ss 19:04 15:45 ss ss 20:48 15:45 [facility] ER HOLD ss cg 20:48 19:04 ERHOLD- ss cg
--- NOTE | 2021-08-06 11:12 | ER ---
Nurse's Notes [facility] Name: Jozef Carbajal Age: 75 yrs Sex: Male : 1945 Arrival Date: 08/06/2021 Time: 09:14 Bed 27 Private MD: Diagnosis: Altered mental status, unspecified;Hyperkalemia;End stage renal disease;Acute pulmonary edema Presentation: 08/06 09:24 Chief complaint: EMS states: "family reported the pt started on Wednesday with a fever and jd3 diarrhea. on Wednesday the pt had general weakness, but the fever was gone. today the family reported the pt is now having AMS and general weakness.". Coronavirus screen: At this time, the client does not indicate any symptoms associated with coronavirus-19. Ebola Screen: Patient negative for fever greater than or equal to 101.5 degrees Fahrenheit, and additional compatible Ebola Virus Disease symptoms. Initial Sepsis Screen: Does the patient meet any 2 criteria? No. Patient's initial sepsis screen is negative. Does the patient have a suspected source of infection? No. Patient's initial sepsis screen is negative. Risk Assessment: Do you want to hurt yourself or someone else? Patient reports no desire to harm self or others. Onset of symptoms was August 06, 2021. 09:24 Method Of Arrival: EMS: [facility] jd3 09:24 Acuity: CARLOS MANUEL 2 jd3 Historical: - Allergies: :27 No Known Allergies; jd3 - Home Meds: 10:15 doxazosin 4 mg oral tab [Active]; Auryxia oral [Active]; hydralazine 50 mg Oral tab jd3 [Active]; amlodipine 10 mg tab [Active]; levothyroxine 50 mcg cap [Active]; carvedilol 6.25 mg oral tab [Active]; allopurinol 100 mg Oral tab [Active]; folic acid 1 mg Oral tab [Active]; atorvastatin 20 mg oral tab [Active]; - PMHx: 09:27 Diabetes - NIDDM; Hypothyroidism; Hypertension; Lupus; Anemia; Renal Disease; jd3 - Immunization history:: Adult Immunizations unknown. - Social history:: Smoking status: unknown. - Family history:: not pertinent. - Hospitalizations: : No recent hospitalization is reported. Screenin:36 Abuse screen: Denies threats or abuse. Nutritional screening: No deficits noted. jd3 Tuberculosis screening: No symptoms or risk factors identified. Fall Risk Ambulatory Aid- None/Bed Rest/Nurse Assist (0 pts). Gait- Normal/Bed Rest/Wheelchair (0 pts) Mental Status- Oriented to own ability (0 pts). Total Vicente Fall Scale indicates No Risk (0-24 pts). Assessment: 09:35 General: Appears in no apparent distress. comfortable, Behavior is calm, cooperative, jd3 appropriate for age. Pain: Denies pain. Neuro: Level of Consciousness is awake, alert, obeys commands, confused, Oriented to person, place, general weakness noted. Cardiovascular: Denies chest pain, Capillary refill < 3 seconds Patient's skin is warm and dry. Respiratory: Airway is patent Respiratory effort is even, unlabored, Respiratory pattern is regular, symmetrical, Breath sounds are clear bilaterally. GI: No signs and/or symptoms were reported involving the gastrointestinal system. : No signs and/or symptoms were reported regarding the genitourinary system. EENT: No signs and/or symptoms were reported regarding the EENT system. Derm: Skin is intact, Skin is dry, Skin is normal, Skin temperature is warm. Musculoskeletal: Circulation, motion, and sensation intact. Range of motion: intact in all extremities. 10:15 Reassessment: Patient appears in no apparent distress at this time. No changes from jd3 previously documented assessment. Patient and/or family updated on plan of care and expected duration. Pain level reassessed. 12:21 Reassessment: Patient appears in no apparent distress at this time. No changes from jd3 previously documented assessment. Patient and/or family updated on plan of care and expected duration. Pain level reassessed. pt to dialysis with [facility]. 16:57 Reassessment: Patient appears in no apparent distress at this time. No changes from jd3 previously documented assessment. Patient and/or family updated on plan of care and expected duration. Pain level reassessed. pt back from dialysis with [facility]. charting continued in [facility] for ER hold status. Vital Signs: 09:27 BP 169 / 86; Pulse 84; Resp 19 S; Temp 98.8(TE); Pulse Ox 100% on R/A; Weight 81.65 kg jd3 (R); Height 6 ft. 0 in. (182.88 cm) (R); Pain 0/10; 10:14 BP 181 / 96; Pulse 81; Resp 20 S; Pulse Ox 100% on R/A; jd3 12:22 BP 176 / 98; Pulse 99; Resp 20 S; Pulse Ox 100% on R/A; jd3 16:58 BP 157 / 114; Pulse 116; Resp 20 S; Pulse Ox 100% on R/A; jd3 09:27 Body Mass Index 24.41 (81.65 kg, 182.88 cm) jd3 ED Course: 09:14 Patient arrived in ED. mh5 09:19 Jules Smith MD is Attending Physician. rn 09:23 Nitin Perez RN is Primary Nurse. jd3 09:27 Triage completed. jd3 09:27 Arm band placed on. jd3 09:36 Patient has correct armband on for positive identification. Bed in low position. Call j light in reach. Side rails up X2. Adult w/ patient. secured entrance monitor on. Pulse ox on. NIBP on. 09:41 CT Head Brain wo Cont In Process Unspecified. EDMS 09:41 CT Abd/Pelvis - Without Contrast In Process Unspecified. EDMS 09:56 XRAY Chest (1 view) In Process Unspecified. EDMS 11:00 Inserted saline lock: 20 gauge in right antecubital area, using aseptic technique. jd3 Blood collected. 11:10 Justin Vanessa MD is Hospitalizing Provider. rn 16:58 No provider procedures requiring assistance completed. Patient admitted, IV remains in jd3 place. Administered Medications: 11:41 Drug: Sodium Bicarbonate 1 amp Route: IVP; Site: right antecubital; jd3 12:40 Follow up: Response: No adverse reaction jd3 11:41 Drug: Albuterol 2.5 mg Route: Inhalation; jd3 12:40 Follow up: Response: No adverse reaction jd3 11:41 Drug: Calcium Gluconate 1 grams Route: IVPB; Infused Over: 60 mins; Site: right jd3 antecubital; 12:40 Follow up: Response: No adverse reaction; IV Status: Completed infusion jd3 11:41 Drug: Lasix (furosemide) 80 mg Route: IVP; Site: right antecubital; jd3 12:40 Follow up: Response: No adverse reaction jd3 11:42 Drug: Insulin Regular Human 5 units {Co-Signature: mg3 (Christina Velasco RN).} Route: jd3 IVP; Site: right antecubital; 12:40 Follow up: Response: No adverse reaction jd3 11:42 Drug: D50W 50 ml Route: IVP; Site: right antecubital; jd3 12:40 Follow up: Response: No adverse reaction jd3 Outcome: 11:11 Decision to Hospitalize by Provider. rn 16:59 Admitted to ER Hold. Please see [facility] for further documentation. jd3 16:59 Condition: stable 16:59 Instructed on the need for admit. 08/08 01:13 Patient left the ED. mr2 Signatures: Dispatcher [employer] EDMS Jules Smith MD MD rn Martinez, [facility] Nitin Perez RN RN jd3 Deejay Thompson RN RN mr2 Christina Velasco RN mg3 Corrections: (The following items were deleted from the chart) 08/06 16:59 12:00 Inserted saline lock: 20 gauge in right antecubital area, using aseptic jd3 technique. Blood collected. jd3
[2021-08-06] MEDS ORDERED: ALBUTEROL 2.5 MG/3 ML NEB SOL ONE (11:21)
[2021-08-06] MEDS ORDERED: FUROSEMIDE 40 MG/4 ML VIAL ONE (11:21)
[2021-08-06] MEDS ORDERED: CALCIUM GLUCONATE 1 GM IVPB 1 GM/50 ML BAG IV ONE (11:22)
[2021-08-06] MEDS ORDERED: INSULIN -REGULAR HUMAN 50 UNIT/0.5 ML ML ONE (11:22)
[2021-08-06] MEDS ORDERED: D50W 25 GM/50 ML SYRINGE IV ONE (11:23)
[2021-08-06] MEDS ORDERED: MANNITOL 25% 12.5 GM/50 ML VIAL IV PRN (16:49)
[2021-08-06] MEDS ORDERED: ALBUMIN HUMAN 25% 50 ML IV SCH (16:49)
[2021-08-06] MEDS ORDERED: NA CHLORIDE 0.9% 1,000 ML IV PRN (16:49)
[2021-08-06] MEDS ORDERED: ONDANSETRON 4 MG/2 ML VIAL IV PRN (16:49)
[2021-08-06 17:29] VITALS: BMI 24.4
[2021-08-06] MEDS ORDERED: VANCOMYCIN 1.5 GM in NA CHLORIDE 0.9% 500 ML IVPB ONE (19:00)
[2021-08-06] MEDS ORDERED: VANCOMYCIN 1 GM in NA CHLORIDE 0.9% 250 ML IVPB SCH (19:00)
[2021-08-06] MEDS: CEFTRIAXONE 1,000 MG in NA CHLORIDE 0.9% 50 ML IVPB SCH (19:00)
[2021-08-06] MEDS ORDERED: CEFTRIAXONE 1000 MG/VIAL ONE (20:02)
[2021-08-06] MEDS ORDERED: NA CHLORIDE 0.9% 50 ML ONE (20:02)
[2021-08-06] MEDS ORDERED: NA CHLORIDE 0.9% 500 ML ONE (20:02)
[2021-08-06] MEDS ORDERED: VANCOMYCIN 1 GM/VIAL ONE (20:02)
--- NOTE | 2021-08-06 20:47 | P.CNS ---
Date of Consult: 08/06/21 Reason for Consult: ESRD/ Hyperkalemia Requesting Physician: Jules Smith Primary Care Provider: Dr. Vanessa Chief Complaint: AMS History of Present Illness: 75 yo BM CKD, HTN presented to the ER with 3-4 days of moderate, progressive diarrhea complicated by malaise and fatigue. AMS. He missed several HD treatments. 09:31 This 75 yrs old Black Male presents to ER via EMS with complaints of Altered mental rn status. 09:31 The patient presents with disorientation. Onset: The symptoms/episode began/occurred 3 rn day(s) ago. Possible causes: unknown. Associated signs and symptoms: Pertinent positives: diarrhea, weakness, Pertinent negatives: abdominal pain, chest pain, headache, seizure. Current symptoms: In the emergency department the patient's symptoms are unchanged from the initial presentation. It is unknown whether or not the patient has had similar symptoms in the past. It is unknown whether or not the patient has recently seen a physician. EMS reports patient here for altered mental status, family told them had fever and diarrhea on Wednesday, last dialysis on Wednesday, supposed to have dialysis today. Family stated fever was gone but has increased weakness and confusion. No fall or trauma. Patient reports abdominal pain and feeling weak.. Allergies No Known Allergies Allergy (Verified 03/21/19 09:42) Home medications list reviewed: Yes Home Medications: Aspirin Chewable [Aspirin Chewable*] 1 tab PO DAILY 07/07/14 Doxazosin [Cardura*] 4 mg PO BID 07/07/14 Folic Acid 1 mg PO DAILY 07/07/14 Levothyroxine [Synthroid*] 75 mcg PO DAILY 07/07/14 Amlodipine Besylate [Norvasc] 10 mg PO DAILY 01/25/18 Atorvastatin Calcium [Lipitor] 20 mg PO BEDTIME 01/25/18 Ferrous Sulfate [Iron] 325 mg PO DAILY 01/25/18 Hydralazine [Apresoline] 2 tab PO TID 01/25/18 Vit D3/Folic Acid/B2/B6/B12 [Folgard Tablet] 1 each PO DAILY 01/25/18 carvediloL [Coreg] 6.25 mg PO BID 01/25/18 Patiromer Calcium Sorbitex [Veltassa] 16.8 gm PO DAILY 09/05/18 allopurinoL [Allopurinol] 1 tab PO DAILY 09/05/18 Cranberry Fruit Extract [Cranberry] 4,200 mg PO DAILY 11/30/18 Home Med 1 tab PO BID 11/30/18 - Past Medical/Surgical History Diabetic: Yes -: Lupus -: HTN -: NIDDM -: CVA 2003 -: Renal disease -: Anemia -: Hypothyroidism -: Cholecystectomy - Family History Father Medical History: Hypertension, Diabetes Mother Medical History: Hypertension, Diabetes Brother Medical History: Hypertension, Diabetes Sister Medical History: Hypertension, Diabetes - Social History Smoking Status: Never smoker Alcohol use: No CD- Drugs: No Caffeine use: No Place of Residence: Home Domestic Violence: Patient's denies sexual, physical, or financial abuse. Review of Systems 10-point ROS is otherwise unremarkable General: Weakness, Malaise Respiratory: SOB with Excertion Gastrointestinal: Diarrhea Neurological: Weakness Physical Examination Temp Pulse Resp BP Pulse Ox 108 H 17 147/97 H 100 08/06/21 18:00 08/06/21 18:00 08/06/21 18:00 08/06/21 18:00 General: In no apparent distress, Cooperative HEENT: Atraumatic Neck: Supple, JVD distended Respiratory: Diminished Cardiovascular: No edema, Regular rate/rhythm Gastrointestinal: Non-distended, No guarding Musculoskeletal: No clubbing, No contractures Integumentary: No rashes, No cyanosis Neurological: Normal speech Laboratory Data (last 24 hrs) 08/06/21 10:12: PT 11.9, INR 1.03, APTT 36.6 08/06/21 10:12: Sodium 138, Potassium 8.2 H*, BUN 119 H, Creatinine 14.50 H*, Glucose 74 08/06/21 10:12: WBC 6.20, Hgb 12.4 L, Hct 39.6, Plt Count 125 L Imagings Data: EXAM DESCRIPTION: CTAbdomen Pelvis Wo Contrast - 08/06/2021 9:41 am CLINICAL HISTORY: fever/diarrhea/AMS COMPARISON: CT ABDOMEN PELVIS WO CONTRAST dated 08/06/2014; CT ABD PELVIS W WO CONTRAST dated 09/04/2002; Chest Single View dated 10/26/2019 TECHNIQUE: CT of the abdomen and pelvis was performed. All CT scans are performed using dose optimization technique as appropriate and may include automated exposure control or mA/KV adjustment according to patient size. FINDINGS: Lower chest: Small bilateral pleural effusions. Interlobular septal thickening and ground-glass opacities predominantly in the left lung base. Cardiomegaly. Aortic valve calcifications. Mitral annular calcifications. Liver: No acute abnormality or suspicious lesions. Biliary: Cholecystectomy. Stomach: No significant focal abnormality. Duodenum: No significant focal abnormality. Pancreas: No significant abnormality. Spleen: No significant abnormality. Adrenal: No suspicious lesions. Kidney/ureter: No hydronephrosis. No renal calculi. Atrophic kidneys. Retroperitoneum: No retroperitoneal adenopathy. Vascular: Atherosclerosis without aneurysm. Bowel: No evidence of appendicitis.. Peritoneum: Trace ascites. Bladder: Mild bladder wall thickening and stranding. Reproductive: No adnexal masses. Bones: The grade 1 anterolisthesis of L4 on L5. Scattered degenerative changes are present in the spine. Scattered dystrophic calcifications are present within the soft tissues. Other: n/a IMPRESSION: No acute intra-abdominal or pelvic finding. Partially imaged interstitial pulmonary edema, less likely pneumonia. Mild bladder wall thickening. Suggest correlating with urinalysis to exclude infection. EXAM DESCRIPTION: CT - Head Brain Wo Cont - 08/06/2021 9:41 am CLINICAL HISTORY: AMS COMPARISON: No comparisons TECHNIQUE: All CT scans are performed using dose optimization technique as appropriate and may include automated exposure control or mA/KV adjustment according to patient size. FINDINGS: No intracranial hemorrhage, hydrocephalus or extra-axial fluid collection.Age indeterminate left basal ganglia lacunar infarct. Mild chronic small vessel ischemic changes. The basal ganglia mineralization. The paranasal sinuses and mastoids are clear. The calvarium is intact. IMPRESSION: Age indeterminate left basal ganglia lacunar infarct. EXAM DESCRIPTION: RAD - Chest Single View - 08/06/2021 9:56 am CLINICAL HISTORY: AMS, ESRD COMPARISON: Chest Single View dated 10/26/2019; Chest Pa And Lat (2 Views) dated 07/06/2019; Chest Single View dated 11/30/2018; Chest Single View dated 12/26/2017 FINDINGS: Lines: None. Lungs: Widespread bilateral airspace opacities. Pleural: No significant pleural effusions or pneumothorax. Cardiac: Increased cardiomegaly. Bones: No acute fractures. Other: IMPRESSION: Widespread bilateral airspace disease concerning for pulmonary edema. Conclusions/Impression: ESRD Proteinuria -Acute HD Hyperkalemia -Acute HD Hypercalcemia -Acute HD HTN with CKD/ CHF -Restart Coreg BID Diastolic CHF, A/C -HD with UF today Anemia in CKD -Start Retacrit CKD MBD -Start Calcitriol AM labs as ordered. Thank you kindly for the consultation. Case reviewed with Dr. Smith Critical Care: Yes (>30min)
[2021-08-06] MEDS: carvediloL 6.25 MG TAB PO SCH (21:00)
[2021-08-07 03:23] LABS: Absolute Lymphocytes (CBC) 1.6 K/uL (0.7-4.9); Hematocrit 37.6 % (39.6-49.0); Lymphocytes % 30.4 % (15.3-44.8); MPV 9.3 fL (7.6-11.3)
[2021-08-07 04:32] LABS: Albumin 2.6 g/dL (3.4-5.0); Magnesium 2.3 mg/dL (1.8-2.4); Phosphorus 5.8 mg/dL (2.5-4.9); Potassium 5.2 mmol/L (3.5-5.1); Protein, Total 7.6 g/dL (6.4-8.2); Uric Acid 2.6 mg/dL (3.5-7.2)
[2021-08-07] MEDS ORDERED: AMLODIPINE 5 MG TAB PO ONE (07:02)
--- NOTE | 2021-08-07 07:12 | HP ---
Date of Admission: 08/06/2021 Chief Complaint: Diarrhea, cough, congestion, and feeling weak. History Of Present Illness: Mr. Haskins is a very pleasant 75-year-old male patient, who has end-stag e renal disease, hypertension, hyperlipidemia, diabetes mellitus, on hemodialysis Wednesday, Wednesday, Wednesday for the last 2 years. Past weekend, he started to have some diarrhea problem associated with cough and chest congestion. His cough was dry. No fever. No nausea. No vomiting. No abdominal pa in. His appetite was poor with this. On Wednesday, he did not feel well enough to go for dialysis at a . His diarrhea has improved now, but overall he feels very weak and he missed his dialysis on . Another dialysis session was supposed to be today and he could not go there and subsequently isra haro brought him to emergency room because of his condition was not improving and he was admitted to [facility]. The patient required emergent dialysis because his potassium was 8.2. When I saw him i emergency room, his was with him at bedside, who reported that the patient also is having conf usion problem that she noted started as of today. No fall or head injury. No headache. Allergies: NO KNOWN ALLERGIES. Medications: List reviewed. Review of Systems: FIELD CROP GROWER: As mentioned above. GI: As mentioned above. Respiratory: As mentioned above. Constitutional: As mentioned above. All other systems reviewed. Social History: Negative for smoking, alcohol use. Family History: Significant for hypertension and diabetes. Past Surgical History: Significant for neck surgery and biopsy of fibrous area from the arm. Past Medical History: Significant for type 2 diabetes mellitus, end-stage renal disease, on hemodial ysis, hypertension, hyperlipidemia, hypothyroidism. Physical Examination: Vital Signs: Height 6 feet, weight 180 pounds. Pulse 108, respiratory rate 17, blood pressure 147/9 7, oxygen saturation 98%. General: The patient appears weaker than normal and also appears confused. Not in any respiratory d istress. Follows simple commands. HEENT: Head atraumatic, normocephalic. Conjunctivae nonerythematous. Sclerae white. Mouth, no thr ush or edema noted. Ears/Nose, no mass, lesion, discharge noted. Neck: Supple. No JVD, lymph nodes, bruit, thyromegaly noted. Lungs: Bilateral good equal air entry. Clear to auscultation. No rhonchi. No rales. Heart: Normal heart sounds, no murmur or gallop. Abdomen: Soft, bowel sounds normal. No guarding, rigidity, tenderness, mass, hepatosplenomegaly, dis tention, or bruit noted. Extremities: No leg edema. No calf tenderness. Skin: No rash, ulcer, cellulitis. Lymphatics: No lymph node enlargement in neck, supraclavicular, infraclavicular region. Neuro: No focal neurological deficit. Chest: Unremarkable. External Genitalia: Deferred. Rectal: Deferred. Laboratory Data: White count 6.2, hemoglobin 12.4, platelets 125. Sodium 138, potassium 8.2, chlori de 106, bicarb 23, BUN 119, creatinine 14.50, glucose 74, procalcitonin 3.94. ProBNP 20,454. Influe nza A, influenza B, and COVID-19 test negative. CAT scan of the abdomen and pelvis shows no acute in traabdominal or pelvic finding, presence of pulmonary edema noted, mild bladder wall thickening. CAT scan of the head shows an age indeterminate left basal ganglia lacunar infarct. Chest x-ray; widesp read bilateral airspace disease concerning for pulmonary edema. Impression: 1.Pulmonary edema. 2.Hyperkalemia. 3.Acute gastroenteritis. 4.Anemia due to chronic kidney disease. 5.Thrombocytopenia, chronic. 6.End-stage renal disease. 7.Hypertension. 8.Hyperlipidemia. 9.Type 2 diabetes mellitus. 10.Hypothyroidism. 11.Encephalopathy, toxic and metabolic. Plan: We will admit the patient to hospital for further evaluation and management of this problem. The patient is appropriate for inpatient and is expected to spend 2 midnights in hospital. The candace nascimento had emergent dialysis after his admission to the hospital and we will continue to follow with neph rologist for further dialysis needs. We will go ahead and continue home medications per order. Empi steven antibiotic will be started, which is ceftriaxone and vancomycin per order. Blood culture was don e, we will follow up on that result and I will see him tomorrow for followup. DVT prophylaxis will b e given per order. Details and plan of treatment discussed with the patient and his . The candace nt will be started on renal diet. The patient is appropriate for inpatient and is expected to spend . NADIA/MODL Voice ID: [id number]
[2021-08-07] MEDS ORDERED: CEFTRIAXONE 1000 MG/VIAL ONE (09:24)
[2021-08-07] MEDS ORDERED: HEPARIN 5000 UNIT/ML 1 ML VIAL ONE ×2 (09:24→22:31)
[2021-08-07] MEDS ORDERED: NA CHLORIDE 0.9% 0 ML ONE (09:24)
[2021-08-07] MEDS ORDERED: carvediloL 6.25 MG TAB ONE ×2 (09:24→22:31)
[2021-08-07] MEDS ORDERED: AMLODIPINE 5 MG TAB ONE (09:24)
[2021-08-07] MEDS: carvediloL 6.25 MG TAB PO SCH ×2 (09:24→21:00)
[2021-08-07] MEDS: HEPARIN 5000 UNIT/ML 1 ML VIAL SQ SCH ×2 (09:24→21:00)
[2021-08-07] MEDS: CEFTRIAXONE 1,000 MG in NA CHLORIDE 0.9% 50 ML IVPB SCH (09:25)
[2021-08-07] MEDS ORDERED: NA CHLORIDE 0.9% 50 ML ONE (09:29)
[2021-08-07] MEDS ORDERED: CALCITROL 0.25 MCG CAP PO ONE (09:30)
[2021-08-07] MEDS: CALCITROL 0.25 MCG CAP PO SCH (09:32)
--- NOTE | 2021-08-07 11:39 | P.PN ---
Date of Service: 08/07/21 Vital Signs Temp Pulse Resp BP Pulse Ox 99 F 81 22 H 172/79 H 100 08/07/21 02:45 08/07/21 09:24 08/07/21 06:00 08/07/21 09:24 08/07/21 06:00 Medications Calcitriol (Calcitrol 0.25 Mcg Cap) 0.5 mcg PO DAILY [facility] Last Admin: 08/07/21 09:32 Dose: 0.5 mcg Documented by: Carvedilol (Carvedilol 6.25 Mg Tab) 6.25 mg PO BID [facility] Last Admin: 08/07/21 09:24 Dose: 6.25 mg Documented by: Epoetin Leighton (Epoetin 4,000 Unit/Ml Vial) 4,000 unit SQ M,W,F [facility] Heparin Sodium (Porcine) (Heparin 1,000 Unit/Ml Vial) 3,000 unit IV EVERY HD PRN PRN Reason: dialysis Last Admin: 08/06/21 12:50 Dose: 3,000 unit Documented by: Heparin Sodium (Porcine) (Heparin 5000 Unit/Ml 1 Ml Vial) 5,000 unit SQ Q12HR [facility] Last Admin: 08/07/21 09:24 Dose: 5,000 unit Documented by: Albumin Human (Albumin 25%) 50 mls @ 100 mls/hr IV EVERY HD WENDY Ceftriaxone Sodium 1,000 mg/ (Sodium Chloride) 50 mls @ 100 mls/hr IVPB DAILY [facility]; Protocol Last Admin: 08/07/21 09:25 Dose: 50 mls Documented by: Vancomycin HCl 1 gm/ Sodium (Chloride) 250 mls @ 166.667 mls/hr IVPB AFTER EACH DIALYSIS [facility]; Protocol Mannitol (Mannitol 25% 12.5 Gm/50 Ml Vial) 12.5 gm IV EVERY HD PRN PRN Reason: PRN FOR BP SUPPORT AT HD Ondansetron HCl (Ondansetron 4 Mg/2 Ml Vial) 4 mg IV Q6H PRN PRN Reason: NAUSEA / VOMITING Sodium Chloride (Flush Normal Saline 10 Ml) 10 ml IV BID [facility] Last Admin: 08/07/21 09:00 Dose: 10 ml Documented by: Microbiology Results 08/06/21 10:02 Blood - Blood Aerobic Blood Culture - Preliminary No growth in 24 hours. 08/06/21 10:02 Blood - Blood Anaerobic Blood Culture - Preliminary No growth in 24 hours. 08/06/21 10:12 Blood - Blood Aerobic Blood Culture - Preliminary No growth in 24 hours. 08/06/21 10:12 Blood - Blood Anaerobic Blood Culture - Preliminary No growth in 24 hours. Assessment/ Plan: Nephrology No dyspnea No chest pain Feeling better. No acute events overnight Vitals, medications, blood work and imaging reviewed in the chart General: In no apparent distress, Cooperative HEENT: Atraumatic Neck: Supple Respiratory: CTA Cardiovascular: No edema, Regular rate/rhythm Gastrointestinal: Non-distended, No guarding Musculoskeletal: No clubbing, No contractures Integumentary: No rashes, No cyanosis Neurological: Normal speech Laboratory Data (last 24 hrs) 08/06/21 10:12: PT 11.9, INR 1.03, APTT 36.6 08/06/21 10:12: Sodium 138, Potassium 8.2 H*, BUN 119 H, Creatinine 14.50 H*, Glucose 74 08/06/21 10:12: WBC 6.20, Hgb 12.4 L, Hct 39.6, Plt Count 125 L Imagings Data: EXAM DESCRIPTION: CTAbdomen Pelvis Wo Contrast - 08/06/2021 9:41 am CLINICAL HISTORY: fever/diarrhea/AMS COMPARISON: CT ABDOMEN PELVIS WO CONTRAST dated 08/06/2014; CT ABD PELVIS W WO CONTRAST dated 09/04/2002; Chest Single View dated 10/26/2019 TECHNIQUE: CT of the abdomen and pelvis was performed. All CT scans are performed using dose optimization technique as appropriate and may include automated exposure control or mA/KV adjustment according to patient size. FINDINGS: Lower chest: Small bilateral pleural effusions. Interlobular septal thickening and ground-glass opacities predominantly in the left lung base. Cardiomegaly. Aortic valve calcifications. Mitral annular calcifications. Liver: No acute abnormality or suspicious lesions. Biliary: Cholecystectomy. Stomach: No significant focal abnormality. Duodenum: No significant focal abnormality. Pancreas: No significant abnormality. Spleen: No significant abnormality. Adrenal: No suspicious lesions. Kidney/ureter: No hydronephrosis. No renal calculi. Atrophic kidneys. Retroperitoneum: No retroperitoneal adenopathy. Vascular: Atherosclerosis without aneurysm. Bowel: No evidence of appendicitis.. Peritoneum: Trace ascites. Bladder: Mild bladder wall thickening and stranding. Reproductive: No adnexal masses. Bones: The grade 1 anterolisthesis of L4 on L5. Scattered degenerative changes are present in the spine. Scattered dystrophic calcifications are present within the soft tissues. Other: n/a IMPRESSION: No acute intra-abdominal or pelvic finding. Partially imaged interstitial pulmonary edema, less likely pneumonia. Mild bladder wall thickening. Suggest correlating with urinalysis to exclude infection. EXAM DESCRIPTION: CT - Head Brain Wo Cont - 08/06/2021 9:41 am CLINICAL HISTORY: AMS COMPARISON: No comparisons TECHNIQUE: All CT scans are performed using dose optimization technique as appropriate and may include automated exposure control or mA/KV adjustment according to patient size. FINDINGS: No intracranial hemorrhage, hydrocephalus or extra-axial fluid collection.Age indeterminate left basal ganglia lacunar infarct. Mild chronic small vessel ischemic changes. The basal ganglia mineralization. The paranasal sinuses and mastoids are clear. The calvarium is intact. IMPRESSION: Age indeterminate left basal ganglia lacunar infarct. EXAM DESCRIPTION: RAD - Chest Single View - 08/06/2021 9:56 am CLINICAL HISTORY: AMS, ESRD COMPARISON: Chest Single View dated 10/26/2019; Chest Pa And Lat (2 Views) dated 07/06/2019; Chest Single View dated 11/30/2018; Chest Single View dated 12/26/2017 FINDINGS: Lines: None. Lungs: Widespread bilateral airspace opacities. Pleural: No significant pleural effusions or pneumothorax. Cardiac: Increased cardiomegaly. Bones: No acute fractures. Other: IMPRESSION: Widespread bilateral airspace disease concerning for pulmonary edema. Conclusions/Impression: ESRD Proteinuria -Acute HD today Hyperkalemia -Acute HD today Hypercalcemia -Acute HD today HTN with CKD/ CHF -Continue Coreg BID Diastolic CHF, A/C -HD with UF today Anemia in CKD -Continue Retacrit CKD MBD -Continue Calcitriol AM labs as ordered.
[2021-08-07] MEDS ORDERED: LORazepam 2 MG/ML VIAL IV ONE (13:01)
[2021-08-07] MEDS ORDERED: LORazepam 2 MG/ML VIAL ONE (13:10)
[2021-08-08] MEDS: LEVOTHYROXINE SOD 0.05 MG TABLET PO SCH (05:54)
[2021-08-08 06:43] LABS: Potassium 4.6 mmol/L (3.5-5.1)
[2021-08-08] MEDS: Ferric Citrate [Auryxia] 210 MG PO SCH ×3 (09:00→21:24)
[2021-08-08] MEDS: CEFTRIAXONE 1,000 MG in NA CHLORIDE 0.9% 50 ML IVPB SCH (09:00)
[2021-08-08] MEDS ORDERED: CEFTRIAXONE 1000 MG/VIAL ONE (09:30)
[2021-08-08] MEDS ORDERED: NA CHLORIDE 0.9% 50 ML ONE (09:43)
[2021-08-08] MEDS: HEPARIN 5000 UNIT/ML 1 ML VIAL SQ SCH ×2 (10:00→21:26)
[2021-08-08] MEDS: HYDRALAZINE HCL 10 MG TABLET PO SCH ×2 (15:00→21:25)
[2021-08-08] MEDS: FOLIC ACID 1 MG TABLET PO SCH (15:00)
[2021-08-08] MEDS: allopurinoL 100 MG TAB PO SCH (15:00)
[2021-08-08] MEDS: CALCITROL 0.25 MCG CAP PO SCH (15:00)
[2021-08-08] MEDS: carvediloL 3.125 MG TAB PO SCH ×2 (15:00→21:25)
[2021-08-08] MEDS: ASPIRIN EC 81 MG TAB PO SCH (15:00)
[2021-08-08] MEDS: AMLODIPINE 10 MG TAB PO SCH (15:57)
[2021-08-08] MEDS: VANCOMYCIN 1 GM in NA CHLORIDE 0.9% 250 ML IVPB SCH (15:57)
[2021-08-08] MEDS: EPOETIN 4,000 UNIT/ML VIAL SQ SCH (17:00)
[2021-08-08] MEDS ORDERED: VANCOMYCIN 500 MG/VIAL ONE (21:13)
[2021-08-08] MEDS: ATORVASTATIN 20 MG TAB PO SCH (21:25)
--- NOTE | 2021-08-08 22:51 | P.PN ---
Date of Service: 08/08/21 Vital Signs Temp Pulse Resp BP Pulse Ox 97.7 F 62 17 114/55 L 95 08/08/21 20:00 08/08/21 21:25 08/08/21 20:00 08/08/21 21:25 08/08/21 20:00 Medications Allopurinol (Allopurinol 100 Mg Tab) 100 mg PO DAILY [facility] Last Admin: 08/08/21 15:00 Dose: 100 mg Documented by: Amlodipine Besylate (Amlodipine 10 Mg Tab) 10 mg PO DAILY [facility] Last Admin: 08/08/21 15:57 Dose: 10 mg Documented by: Aspirin (Aspirin Ec 81 Mg Tab) 81 mg PO DAILY [facility] Last Admin: 08/08/21 15:00 Dose: 81 mg Documented by: Atorvastatin Calcium (Atorvastatin 20 Mg Tab) 20 mg PO BEDTIME [facility] Last Admin: 08/08/21 21:25 Dose: 20 mg Documented by: Calcitriol (Calcitrol 0.25 Mcg Cap) 0.5 mcg PO DAILY [facility] Last Admin: 08/08/21 15:00 Dose: 0.5 mcg Documented by: Carvedilol (Carvedilol 3.125 Mg Tab) 3.125 mg PO BID [facility] Last Admin: 08/08/21 21:25 Dose: 3.125 mg Documented by: Epoetin Leighton (Epoetin 4,000 Unit/Ml Vial) 4,000 unit SQ M,W,F [facility] Folic Acid (Folic Acid 1 Mg Tablet) 1 mg PO DAILY [facility] Last Admin: 08/08/21 15:00 Dose: 1 mg Documented by: Heparin Sodium (Porcine) (Heparin 1,000 Unit/Ml Vial) 3,000 unit IV EVERY HD PRN PRN Reason: dialysis Last Admin: 08/07/21 13:28 Dose: 3,000 unit Documented by: Heparin Sodium (Porcine) (Heparin 5000 Unit/Ml 1 Ml Vial) 5,000 unit SQ Q12HR [facility] Last Admin: 08/08/21 21:26 Dose: 5,000 unit Documented by: Home Med (Ferric Citrate [Auryxia]) 2 tab PO TID [facility] Last Admin: 08/08/21 21:24 Dose: 2 tab Documented by: Hydralazine HCl (Hydralazine Hcl 10 Mg Tablet) 10 mg PO BID [facility] Last Admin: 08/08/21 21:25 Dose: 10 mg Documented by: Albumin Human (Albumin 25%) 50 mls @ 100 mls/hr IV EVERY HD [facility] Ceftriaxone Sodium 1,000 mg/ (Sodium Chloride) 50 mls @ 100 mls/hr IVPB DAILY [facility]; Protocol Last Admin: 08/08/21 09:00 Dose: Not Given Documented by: Vancomycin HCl 1 gm/ Sodium (Chloride) 250 mls @ 166.667 mls/hr IVPB AFTER EACH DIALYSIS [facility]; Protocol Last Admin: 08/08/21 15:57 Dose: 250 mls Documented by: Levothyroxine Sodium (Levothyroxine Sod 0.05 Mg Tablet) 0.05 mg PO DAILYAC [facility] Last Admin: 08/08/21 05:54 Dose: 0.05 mg Documented by: Mannitol (Mannitol 25% 12.5 Gm/50 Ml Vial) 12.5 gm IV EVERY HD PRN PRN Reason: PRN FOR BP SUPPORT AT HD Ondansetron HCl (Ondansetron 4 Mg/2 Ml Vial) 4 mg IV Q6H PRN PRN Reason: NAUSEA / VOMITING Sodium Chloride (Flush Normal Saline 10 Ml) 10 ml IV BID [facility] Last Admin: 08/08/21 21:00 Dose: 10 ml Documented by: Microbiology Results 08/06/21 10:02 Blood - Blood Aerobic Blood Culture - Preliminary No growth in 24 hours. 08/06/21 10:02 Blood - Blood Anaerobic Blood Culture - Preliminary No growth in 24 hours. 08/06/21 10:12 Blood - Blood Aerobic Blood Culture - Preliminary No growth in 24 hours. 08/06/21 10:12 Blood - Blood Anaerobic Blood Culture - Preliminary No growth in 24 hours. Assessment/ Plan: Nephrology No dyspnea No chest pain Feeling better. Appetite improving. No acute events overnight Vitals, medications, blood work and imaging reviewed in the chart General: In no apparent distress, Cooperative HEENT: Atraumatic Neck: Supple Respiratory: CTA Cardiovascular: No edema, Regular rate/rhythm Gastrointestinal: Non-distended, No guarding Musculoskeletal: No clubbing, No contractures Integumentary: No rashes, No cyanosis Neurological: Normal speech Laboratory Data (last 24 hrs) 08/06/21 10:12: PT 11.9, INR 1.03, APTT 36.6 08/06/21 10:12: Sodium 138, Potassium 8.2 H*, BUN 119 H, Creatinine 14.50 H*, Glucose 74 08/06/21 10:12: WBC 6.20, Hgb 12.4 L, Hct 39.6, Plt Count 125 L Imagings Data: EXAM DESCRIPTION: CTAbdomen Pelvis Wo Contrast - 08/06/2021 9:41 am CLINICAL HISTORY: fever/diarrhea/AMS COMPARISON: CT ABDOMEN PELVIS WO CONTRAST dated 08/06/2014; CT ABD PELVIS W WO CONTRAST dated 09/04/2002; Chest Single View dated 10/26/2019 TECHNIQUE: CT of the abdomen and pelvis was performed. All CT scans are performed using dose optimization technique as appropriate and may include automated exposure control or mA/KV adjustment according to patient size. FINDINGS: Lower chest: Small bilateral pleural effusions. Interlobular septal thickening and ground-glass opacities predominantly in the left lung base. Cardiomegaly. Aortic valve calcifications. Mitral annular calcifications. Liver: No acute abnormality or suspicious lesions. Biliary: Cholecystectomy. Stomach: No significant focal abnormality. Duodenum: No significant focal abnormality. Pancreas: No significant abnormality. Spleen: No significant abnormality. Adrenal: No suspicious lesions. Kidney/ureter: No hydronephrosis. No renal calculi. Atrophic kidneys. Retroperitoneum: No retroperitoneal adenopathy. Vascular: Atherosclerosis without aneurysm. Bowel: No evidence of appendicitis.. Peritoneum: Trace ascites. Bladder: Mild bladder wall thickening and stranding. Reproductive: No adnexal masses. Bones: The grade 1 anterolisthesis of L4 on L5. Scattered degenerative changes are present in the spine. Scattered dystrophic calcifications are present within the soft tissues. Other: n/a IMPRESSION: No acute intra-abdominal or pelvic finding. Partially imaged interstitial pulmonary edema, less likely pneumonia. Mild bladder wall thickenin g. Suggest correlating with urinalysis to exclude infection. EXAM DESCRIPTION: CT - Head Brain Wo Cont - 08/06/2021 9:41 am CLINICAL HISTORY: AMS COMPARISON: No comparisons TECHNIQUE: All CT scans are performed using dose optimization technique as appropriate and may include automated exposure control or mA/KV adjustment according to patient size. FINDINGS: No intracranial hemorrhage, hydrocephalus or extra-axial fluid collection.Age indeterminate left basal ganglia lacunar infarct. Mild chronic small vessel ischemic changes. The basal ganglia mineralization. The paranasal sinuses and mastoids are clear. The calvarium is intact. IMPRESSION: Age indeterminate left basal ganglia lacunar infarct. EXAM DESCRIPTION: RAD - Chest Single View - 08/06/2021 9:56 am CLINICAL HISTORY: AMS, ESRD COMPARISON: Chest Single View dated 10/26/2019; Chest Pa And Lat (2 Views) dated 07/06/2019; Chest Single View dated 11/30/2018; Chest Single View dated 12/26/2017 FINDINGS: Lines: None. Lungs: Widespread bilateral airspace opacities. Pleural: No significant pleural effusions or pneumothorax. Cardiac: Increased cardiomegaly. Bones: No acute fractures. Other: IMPRESSION: Widespread bilateral airspace disease concerning for pulmonary edema. Conclusions/Impression: ESRD Proteinuria -Acute HD tomorrow Hyperkalemia -HD TIW Hypercalcemia -HD TIW HTN with CKD/ CHF -Continue Coreg BID Diastolic CHF, A/C -HD with UF Anemia in CKD -Continue Retacrit CKD MBD -Discontinue Calcitriol -Start Renvela AM labs as ordered.
[2021-08-09] MEDS: LEVOTHYROXINE SOD 0.05 MG TABLET PO SCH (06:41)
[2021-08-09] MEDS: SEVELAMER CARBONATE 800 MG TABLET PO SCH ×3 (08:00→17:37)
--- NOTE | 2021-08-09 08:57 | PN ---
Date of Progress Note: 08/07/2021 Subjective: Patient was seen for followup this morning. No new complaints or problems reported. Jakub randall lying in bed, not in distress. His mental status and confusion are better compared to yesterda y as reported by , but he still has some confusion, and he is not back to his normal self yet. Objective: Vital signs: Reviewed. No nausea, no vomiting. HEENT: Unremarkable. Lungs: Clear to auscultation. Heart: Sounds normal. Abdomen: Soft. Bowel sounds normal. No guarding, rigidity, tenderness, distention. Extremities: No leg edema. Laboratory Data: White count 5.3, hemoglobin 12.1, platelets 122. Sodium 142, potassium 5.2, chlori de 103, bicarb 30, BUN 57, creatinine 9.22, glucose 70. Liver function tests unremarkable. Impression: 1.Hyperkalemia, improved. 2.End-stage renal disease, on hemodialysis. 3.Hypertension. 4.Hyperlipidemia. 5.Acute gastroenteritis. 6.Anemia due to chronic kidney disease. 7.Thrombocytopenia. Plan: We will go ahead and continue to follow with application development liaison. Continue dialysis support per neph rologist. We will continue other current medical management including current antibiotics, and we wi ll repeat blood work tomorrow. I will see him tomorrow for followup. Continue DVT prophylaxis with hep man. NADIA/MODL Voice ID: [id number] Report ID: [id number]
[2021-08-09] MEDS: Ferric Citrate [Auryxia] 210 MG PO SCH ×3 (09:00→21:32)
[2021-08-09] MEDS: HYDRALAZINE HCL 10 MG TABLET PO SCH ×2 (09:00→21:30)
[2021-08-09] MEDS: carvediloL 3.125 MG TAB PO SCH ×2 (09:00→21:30)
[2021-08-09] MEDS: AMLODIPINE 10 MG TAB PO SCH (09:00)
--- NOTE | 2021-08-09 09:06 | PN ---
Date of Progress Note: 08/08/2021 Subjective: Patient was seen this morning for followup no new complaints or problems reported by dustin james. He was lying in bed. was present with him at bedside. Overall, his mental status is festus k to normal. No more confusion. No shortness of breath. No chest pain. No nausea, vomiting. His appetite is good. Objective: Vital Signs: Reviewed. HEENT: Unremarkable. Lungs: Clear to auscultation. Heart: Sounds normal. Abdomen: Soft. Bowel sounds normal. No guarding, rigidity, tenderness, distention. Extremities: No leg edema. Laboratory Data: Sodium 141, potassium 4.6 chloride 105, bicarb 29, BUN 47, creatinine 7.77, glucose 91. Impression: 1.Hyperkalemia, resolved. 2.End-stage renal disease, on hemodialysis. 3.Hypertension. 4.Acute gastroenteritis. 5.Anemia due to chronic kidney disease. 6.Thrombocytopenia. Plan: We will go ahead and continue current antibiotic. Continue to follow with alteration tailor apprentice for di alysis support. The patient has significant generalized weakness and debility. He has not ambulated since he has been in hospital according to patient's , so we will consult Physical Therapy to he lp ambulate the patient and alteration tailor apprentice will plan to do dialysis tomorrow. Our plan is to possibly discharge him to go home tomorrow depending on his condition. Details were discussed with the patient and his . NADIA/MODL Voice ID: [id number] Report ID: [id number]
[2021-08-09] MEDS: HEPARIN 5000 UNIT/ML 1 ML VIAL SQ SCH ×2 (09:38→21:29)
[2021-08-09] MEDS: CEFTRIAXONE 1,000 MG in NA CHLORIDE 0.9% 50 ML IVPB SCH (09:38)
--- NOTE | 2021-08-09 14:03 | P.PN ---
Date of Service: 08/09/21 Pt doing well denies any complaints Vitals, medications, blood work and imaging reviewed in the chart General: In no apparent distress, Cooperative HEENT: Atraumatic Neck: Supple Respiratory: CTA Cardiovascular: No edema, Regular rate/rhythm Gastrointestinal: Non-distended, No guarding Musculoskeletal: No clubbing, No contractures Integumentary: No rashes, No cyanosis Neurological: Normal speech Laboratory Last Values WBC 6.20 K/uL (4.3-10.9) 08/06/21 10:12 RBC 4.23 M/uL (4.33-5.43) L 08/06/21 10:12 Hgb 12.4 g/dL (13.6-17.9) L 08/06/21 10:12 Hct 39.6 % (39.6-49.0) 08/06/21 10:12 MCV 93.6 fL (80-100) 08/06/21 10:12 MCH 29.2 pg (27.0-35.0) 08/06/21 10:12 MCHC 31.2 g/dL (32.0-36.0) L 08/06/21 10:12 RDW 18.6 % (12.1-15.2) H 08/06/21 10:12 Plt Count 125 K/uL (152-406) L 08/06/21 10:12 MPV 8.9 fL (7.6-11.3) 08/06/21 10:12 Neutrophils % 71.7 % (41.7-73.7) 08/06/21 10:12 Lymphocytes % 16.5 % (15.3-44.8) 08/06/21 10:12 Monocytes % 10.1 % (3.3-12.3) 08/06/21 10:12 Eosinophils % 1.0 % (0-4.4) 08/06/21 10:12 Basophils % 0.7 % (0-1.3) 08/06/21 10:12 Absolute Neutrophils 4.5 K/uL (1.8-8.0) 08/06/21 10:12 Absolute Lymphocytes 1.0 K/uL (0.7-4.9) 08/06/21 10:12 Absolute Monocytes 0.6 K/uL (0.1-1.3) 08/06/21 10:12 Absolute Eosinophils 0.1 K/uL (0-0.5) 08/06/21 10:12 Absolute Basophils 0.0 K/uL (0-0.5) 08/06/21 10:12 PT 11.9 SECONDS (9.5-12.5) 08/06/21 10:12 INR 1.03 08/06/21 10:12 APTT 36.6 SECONDS (24.3-36.9) 08/06/21 10:12 Sodium 138 mmol/L (136-145) 08/06/21 10:12 Potassium 8.2 mmol/L (3.5-5.1) H* 08/06/21 10:12 Chloride 106 mmol/L (98-107) 08/06/21 10:12 Carbon Dioxide 23 mmol/L (21-32) 08/06/21 10:12 BUN 119 mg/dL (7-18) H 08/06/21 10:12 Creatinine 14.50 mg/dL (0.55-1.3) H* 08/06/21 10:12 Estimated GFR 4 mL/min (=/>90) L 08/06/21 10:12 Glucose 74 mg/dL (74-106) 08/06/21 10:12 Lactic Acid 1.0 mmol/L (0.4-2.0) 08/06/21 10:12 Calcium 10.3 mg/dL (8.5-10.1) H 08/06/21 10:12 NT-Pro-B Natriuret Pep 05226 pg/mL (<450) H 08/06/21 10:12 Procalcitonin 3.94 ng/mL (<0.050) H 08/06/21 10:12 Influenza Type A RNA Negative (NEGATIVE) 08/06/21 09:23 Influenza Type B RNA Negative (NEGATIVE) 08/06/21 09:23 SARS-CoV-2 RNA (RT-PCR) Negative (NEGATIVE) 08/06/21 09:23 Allopurinol (Allopurinol 100 Mg Tab) 100 mg PO DAILY [facility] Last Admin: 08/08/21 15:00 Dose: 100 mg Documented by: Amlodipine Besylate (Amlodipine 10 Mg Tab) 10 mg PO DAILY [facility] Last Admin: 08/08/21 15:57 Dose: 10 mg Documented by: Aspirin (Aspirin Ec 81 Mg Tab) 81 mg PO DAILY [facility] Last Admin: 08/08/21 15:00 Dose: 81 mg Documented by: Atorvastatin Calcium (Atorvastatin 20 Mg Tab) 20 mg PO BEDTIME [facility] Last Admin: 08/08/21 21:25 Dose: 20 mg Documented by: Carvedilol (Carvedilol 3.125 Mg Tab) 3.125 mg PO BID [facility] Last Admin: 08/08/21 21:25 Dose: 3.125 mg Documented by: Epoetin Leighton (Epoetin 4,000 Unit/Ml Vial) 4,000 unit SQ M,W,F [facility] Folic Acid (Folic Acid 1 Mg Tablet) 1 mg PO DAILY [facility] Last Admin: 08/08/21 15:00 Dose: 1 mg Documented by: Heparin Sodium (Porcine) (Heparin 1,000 Unit/Ml Vial) 3,000 unit IV EVERY HD PRN PRN Reason: dialysis Last Admin: 08/07/21 13:28 Dose: 3,000 unit Documented by: Heparin Sodium (Porcine) (Heparin 5000 Unit/Ml 1 Ml Vial) 5,000 unit SQ Q12HR [facility] Last Admin: 08/09/21 09:38 Dose: 5,000 unit Documented by: Home Med (Ferric Citrate [Auryxia]) 2 tab PO TID [facility] Last Admin: 08/08/21 21:24 Dose: 2 tab Documented by: Hydralazine HCl (Hydralazine Hcl 10 Mg Tablet) 10 mg PO BID [facility] Last Admin: 08/08/21 21:25 Dose: 10 mg Documented by: Albumin Human (Albumin 25%) 50 mls @ 100 mls/hr IV EVERY HD [facility] Ceftriaxone Sodium 1,000 mg/ (Sodium Chloride) 50 mls @ 100 mls/hr IVPB DAILY [facility]; Protocol Last Admin: 08/09/21 09:38 Dose: 50 mls Documented by: Vancomycin HCl 1 gm/ Sodium (Chloride) 250 mls @ 166.667 mls/hr IVPB AFTER EACH DIALYSIS [facility]; Protocol Last Admin: 08/08/21 15:57 Dose: 250 mls Documented by: Levothyroxine Sodium (Levothyroxine Sod 0.05 Mg Tablet) 0.05 mg PO DAILYAC [facility] Last Admin: 08/09/21 06:41 Dose: 0.05 mg Documented by: Mannitol (Mannitol 25% 12.5 Gm/50 Ml Vial) 12.5 gm IV EVERY HD PRN PRN Reason: PRN FOR BP SUPPORT AT HD Ondansetron HCl (Ondansetron 4 Mg/2 Ml Vial) 4 mg IV Q6H PRN PRN Reason: NAUSEA / VOMITING Sevelamer Carbonate (Sevelamer Carbonate 800 Mg Tablet) 800 mg PO TIDWM [facility] Last Admin: 08/09/21 12:24 Dose: 800 mg Documented by: Sodium Chloride (Flush Normal Saline 10 Ml) 10 ml IV BID [facility] Last Admin: 08/08/21 21:00 Dose: 10 ml Documented by: Conclusions/Impression: ESRD Proteinuria -Acute HD today Hyperkalemia -HD TIW Hypercalcemia -HD TIW HTN with CKD/ CHF -Continue Coreg BID Diastolic CHF, A/C -HD with UF Anemia in CKD -Continue Retacrit CKD MBD -Discontinue Calcitriol -Start Renvela
[2021-08-09] MEDS ORDERED: ACETAMINOPHEN 500 MG TAB PO PRN (17:23)
[2021-08-09] MEDS: EPOETIN 4,000 UNIT/ML VIAL SQ SCH (19:56)
[2021-08-09 20:32] VITALS: O2SAT 98
[2021-08-09] MEDS: ASPIRIN EC 81 MG TAB PO SCH (21:29)
[2021-08-09] MEDS: ATORVASTATIN 20 MG TAB PO SCH (21:30)
[2021-08-09] MEDS: FOLIC ACID 1 MG TABLET PO SCH (21:30)
[2021-08-09] MEDS: allopurinoL 100 MG TAB PO SCH (21:30)
[2021-08-10] MEDS: VANCOMYCIN 1 GM in NA CHLORIDE 0.9% 250 ML IVPB SCH (02:42)
[2021-08-10] MEDS: LEVOTHYROXINE SOD 0.05 MG TABLET PO SCH (06:48)
[2021-08-10] MEDS: SEVELAMER CARBONATE 800 MG TABLET PO SCH (08:00)
[2021-08-10 08:28] VITALS: BP 139/65; TEMP 97.1
[2021-08-10] MEDS: CEFTRIAXONE 1,000 MG in NA CHLORIDE 0.9% 50 ML IVPB SCH (09:00)
[2021-08-10] MEDS: carvediloL 3.125 MG TAB PO SCH (09:00)
[2021-08-10] MEDS: AMLODIPINE 10 MG TAB PO SCH (09:00)
[2021-08-10] MEDS: HYDRALAZINE HCL 10 MG TABLET PO SCH (09:00)
[2021-08-10] MEDS: allopurinoL 100 MG TAB PO SCH (09:00)
[2021-08-10] MEDS: FOLIC ACID 1 MG TABLET PO SCH (09:00)
[2021-08-10] MEDS: Ferric Citrate [Auryxia] 210 MG PO SCH (09:00)
[2021-08-10] MEDS: HEPARIN 5000 UNIT/ML 1 ML VIAL SQ SCH (09:00)
[2021-08-10] MEDS: ASPIRIN EC 81 MG TAB PO SCH (09:00)
--- NOTE | 2021-08-10 11:21 | PN ---
Subjective: The patient was seen for followup in the morning. No new complaints or problems reporte d by him. Objective: Vital signs: Reviewed. His was present with him at bedside. HEENT: Unremarkable. Lungs: Clear to auscultation. Heart: Sounds normal. Abdomen: Soft. Bowel sounds normal. No guarding, rigidity, tenderness, or distention. Extremity: No leg edema. Impression: 1.Acute gastroenteritis. 2.End-stage renal disease, on hemodialysis. 3.Generalized weakness. 4.Debility. 5.Hypertension. Plan: We will continue current antibiotics. The patient will have hemodialysis today and we will reina ve Therapy to continue to work with him. Hopefully, we can discharge him to go home tomorrow. Olga de la o of plan and treatment discussed with the patient and the patient's . He is tolerating diet we ll. NADIA/MODL Voice ID: [id number] Report ID: [id number]
--- NOTE | 2021-08-10 11:58 | DS ---
Date of Discharge: 08/10/2021 Disposition: Discharged to go home. Physical Examination: HEENT: Unremarkable. Lungs: Clear to auscultation. Heart: Sounds normal. Abdomen: Soft. Bowel sounds normal. No guarding, rigidity, tenderness, distention. Extremities: No leg edema. Laboratory Data: Upon admission, white count 6.2, hemoglobin 12.4, platelets 125. Day after admissi on, white count 5.3, hemoglobin 12.1, platelets 124. Upon admission, sodium 138, potassium 8.2, chlo ride 106, bicarb 23, BUN 119, creatinine 14.50, glucose 74, procalcitonin 3.94. Last chemistry from August 08, 2021, sodium 141, potassium 4.6, chloride 105, bicarb 29, BUN 47, creatinine 7.77, glucose . Blood culture remained negative except 1 bottle was growing gram-positive cocci. Today we got the report on it that it was a skin contamination. Discharge Medications And Instructions: 1.Continue prior home medication. 2.Follow up at my office next week on , August 14, 2021 at 10 a.m. 3.Take Levaquin 250 mg 1 tablet by mouth on Wednesday, Wednesday, and Wednesday evening and prescription w ill be sent to [facility] from my office. Hospital Course: Mr. Carbajal is a pleasant 75-year-old male patient admitted to the hospital. The p atjacob came into emergency room with complaints of diarrhea, cough, congestion, feeling weak. Please see dictated H and P for more information. When the patient came into ER, he had missed his 2 dialy sis sessions . His COVID-19 test was negative. CAT scan of the abdomen and pelvis showed no acute intraabdominal or pelvic . Chest x-ray had shown changes of pulmonary edema. CAT scan of the head was negative for any acute changes except it did show indeterminate left basal gang donnie infarct and this was thought to be lacunar infarct. started him on antibiotics for ga stroenteritis type of problem. Overall his condition improved. The patient had significant generali zed weakness and debility. Physical Therapy was consulted and he started to ambulate well. His diar quyen problem has resolved. He does not have any abdominal pain. No nausea. No vomiting. His cough and congestion also have resolved. Overall, his condition is stable now for discharge and today he was discharged to go home in stable condition with followup discharge medication and instruction. He has some symptoms of allergic rhinitis with some nasal congestion and also has some sinus headache f rom time to time. Yesterday, he was given Tylenol for that, which he responded very well to it. Sergio crump advised him to continue to use Tylenol at home in case if he needs it, but also to use Claritin 1 0 mg daily as needed. Final Diagnoses: 1.Pulmonary edema. 2.Hyperkalemia. 3.Acute gastroenteritis. 4.Generalized weakness. 5.Debility. 6.Anemia due to chronic kidney disease. 7.Thrombocytopenia, chronic. 8.End-stage renal disease. 9.Hypertension. 10.Hyperlipidemia. 11.Type 2 diabetes mellitus. 12.Hypothyroidism. 13.Encephalopathy, toxic and metabolic, resolved. NADIA/MODL Voice ID: [id number] Report ID: [id number]
== END 2021-08-10 12:15 | disposition home or self-care (01) | DRG 640 ==
LOC: ER 09:12 → ERHOLD 11:25 → 2ND 08-08 00:35
PROVIDERS: ADMIT Internal Medicine; ATTEND Internal Medicine
PROC: 5A1D70Z Performance of Urinary Filtration, Intermittent, Less than 6 Hours Per Day (ICD-10-PCS; principal; 2021-08-06)
PROC: 5A1D70Z Performance of Urinary Filtration, Intermittent, Less than 6 Hours Per Day (ICD-10-PCS; 2021-08-07)
PROC: 5A1D70Z Performance of Urinary Filtration, Intermittent, Less than 6 Hours Per Day (ICD-10-PCS; 2021-08-09)
DX: E87.5 Hyperkalemia (principal); I50.33 Acute on chronic diastolic (congestive) heart failure; G92.8 Other toxic encephalopathy; N18.6 End stage renal disease; I13.2 Hypertensive heart and chronic kidney disease with heart failure and with stage 5 chronic kidney disease, or end stage renal disease; J81.1 Chronic pulmonary edema; K52.9 Noninfective gastroenteritis and colitis, unspecified; E11.22 Type 2 diabetes mellitus with diabetic chronic kidney disease; R53.81 Other malaise; D63.8 Anemia in other chronic diseases classified elsewhere; D69.6 Thrombocytopenia, unspecified; E78.5 Hyperlipidemia, unspecified; E03.9 Hypothyroidism, unspecified; J30.9 Allergic rhinitis, unspecified; E83.52 Hypercalcemia; Z99.2 Dependence on renal dialysis; Z20.822 Contact with and (suspected) exposure to COVID-19
CPT/HCPCS: 0240U; 36415; 70450; 71045; 74176; 80048; 80053; 80202; 82947; 83605; 83735; 83880; 84100; 84145; 84550; 85025; 85610; 85730; 87040; 90935; 93005; 96365; 96375; 97116; 97161; 99285; J0610; J1644; J1940; J3370; J7040; J7050; Q5105

== ENCOUNTER 2021-10-30 12:32 | Observation (INO) | payer OTHER ==
--- OUTSIDE RECORDS SUMMARY | 2021-10-30 14:08 | XMS REPORT | Continuity of Care Document ---
:[address] [facility] t Address [facility] [address] [place] [address] Care Team Providers Name Role Phone Franchesca LIVINGSTON Attending Clinician Unavailable Patt Cotton DO Attending Clinician BALTAZAR Attending Clinician Unavailable BALTAZAR Admitting Clinician Unavailable Payers Payer Name Policy Type Policy Number Effective Date Expiration Date Jone hayward MEDICARE PART A [id number] 1996 \T\ B 00:00:00 [employer] INDEMNITY [id number] 2017 00:00:00 Problems Condition Condition Condition Status Onset Resolution Last Treating Co mments Source Name Details Category Date Date Treatment Clinician Date Bacterial Bacterial Disease Active 2013-08 Overview: Univers pneumonia pneumonia 2-08 ICD10 ity of 00:00: Diagnosis [place] [id number] Term 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 Branch Utility Lupus Lupus Disease Active 2013-08 Univers nephritis nephritis 08-27 ity of 00:00: [place] [address] Medical Branch Fever Fever Disease Active 2013-08 Univers 08-27 ity of 00:00: [place] [address] Medical Branch DM DM Disease Active 2013-08 Univers (diabetes (diabetes 08-27 ity of mellitus) mellitus) 00:00: [facility] Medical Branch HTN HTN Disease Active 2013-08 Univers (hypertens (hypertens 08-27 it y of ion) ion) 00:00: [address] Branch HLD HLD Disease Active 2013-08 Univers (hyperlipi (hyperlipi 08-27 it y of demia) demia) 00:00: [address] Branch Weakness Weakness Disease Active 2013-08 Unive rs 08-27 ity of 00:00: [address] Branch Allergies, Adverse Reactions, Alerts Allergy Allergy Status Severity Reaction(s) Onset Inactive Treating Comm ents Source Name Type Date Date Clinician NO KNOWN Drug Active Univers ALLERGIE Class [facility] of [facility] [place] [facility] Social History Social Habit Start Date Stop Date Quantity Comments Source Sex Assigned At Universit y of [facility] Branch Exposure to Not sure [facility] SARS-CoV-2 [place] [facility] (event) Branch Tobacco use and 2020-05-20 2020-05-20 Never used Universit y of exposure 00:00:00 00:00:00 [facility] Alcohol intake 2020-05-20 2020-05-20 Current [facility] 00:00:00 00:00:00 non-drinker of [facility] alcohol Branch (finding) Smoking Status Start Date Stop Date Source Never smoker [facility] Branch Medications Ordered Filled Start Stop Current Ordering Indication Dosage Frequency Signature Comments Components Source Medication Medication Date Date Medication? Clinician (SIG) Name Name tetanus-dip 2019-08- No .5mL 0.5 mL, Un mah[place] htheria 0-19 05-20 Intramuscu ity o f toxoids 19:15: 19:26 lar, ONCE, Jonas as (TENIVAC) 00 :00 1 dose, Medical 5-2 Lf Mon Branch unit/0.5 mL 05/20/20 injection at 1415, 0.5 mL Routine sodium 2017-08 Yes [id number] 325mg Take 325 Un mahsa bicarbonate 2-03 [...] times Medical daily. Branch atorvastati 2017-08 Yes [id number] .5{tbl} Take 0.5 Univers n 40 mg 2-03 tablets by ity of tablet 14:52: mouth [place] [address] daily. Medical Branch aspirin 81 2017-08 Yes 81mg Take 81 mg U nivers mg chewable 2-03 by mouth ity of tablet 14:52: daily. [address] Branch foLIC acid 2017-08 Yes 1mg Take 1 mg Un mahsa 1 mg tablet 2-03 by mouth ity of 14:52: daily. [place] [facility] hydralAZINE 2017- Yes 10mg Take 10 mg Univers 10 mg 5-23 by mouth ity of tablet 00:00: daily. [place] [facility] carvedilol Yes 1{tbl} Take 1 Uni vers 6.25 mg 4-26 tablet by ity of tablet 00:00: mouth [place] daily. [facility] Immunizations Ordered Filled Immunization Date Status Comments [facility] e Immunization Name Name Td 2020-05-20 Completed [facility] 00:00:00 [facility] Vital Signs Vital Name Observation Time Observation Value Comments Source Systolic blood 2020-05-20 19:00:00 175 mm[Hg] Univer sity of pressure [facility] Diastolic blood 2020-05-20 19:00:00 78 mm[Hg] Unive rsity of [facility] Heart rate 2020-05-20 19:00:00 68 /min [facility] Respiratory rate 2020-05-20 19:00:00 18 /min [facility] Oxygen saturation in 2020-05-20 19:00:00 99 /min [facility] Arterial blood by [facility] Pulse oximetry [place] Body temperature 2020-05-20 17:34:00 37.33 Al[facility] Body weight 2020-05-20 17:34:00 85.276 kg [facility] BMI 2020-05-20 17:34:00 25.50 kg/m2 [facility] Procedures Procedure Date / Time Performed Performing Clinician [facility] e CT CERVICAL SPINE WO 2020-05-20 18:51:43 Gina Cotton [facility] CONTRAST [facility] CT HEAD WO CONTRAST 2020-05-20 18:51:43 Gina Cotton [facility] CONSENT/REFUSAL FOR 2020-05-20 17:26:43 [facility] AND Name Medical [place] TREATMENT NOTICE OF PRIVACY 2020-05-20 17:26:25 Doctor Unassigned, No [facility] PR[facility] Name Medical [place] Encounters Start End Encounter Admission Attending Care Care Encounter Source Date/Time Date/Time Type Type Clinicians Facility Department ID 2021-05-30 Emergency [facility] [id number] [facility] 23:43:30 ity of [facility] 2020-11-07 2020-11-07 Outpatient R MIKI, [facility] [id number] Univers 16:00:00 16:00:00 ZURDO ity of [facility] 2020-11-07 2020-11-07 Outpatient [facility] [id number] Univers 09:30:00 09:30:00 ity [facility] 2020-10-16 2020-10-16 Outpatient [facility] [id number] Univers 09:30[facility]00 [facility] 2020-05-20 Emergency [facility] [id number] Univers 12:30:00 14:38:00 Gina Mcbride [id number] [facility] [id number] [facility] [id number] [facility] 084 Branch 2019-08-07 2019-08-07 Outpatient [facility] [id number] 718 [place] 00:00:00 00:00:00 ARABELLA [address] Results Test Test Test Results Result Source Description Time Comments Comments CT Head W/O 2020-05- Right posterior parietal University of Contrast 19 scalp soft tissue [facility] 19:03:28 swelling/edema Branch withoutunderlying calvarial fracture or [...]
[2021-10-30 14:28] VITALS: BMI 3319.7
[2021-10-30] MEDS ORDERED: SODIUM CHLORIDE 0.9% 10ML INJ IV PRN (15:09)
[2021-10-30] MEDS ORDERED: PANTOPRAZOLE 40 MG INJ IVP ONE (16:00)
[2021-10-30] MEDS ORDERED: INFLUENZA VACCINE (for 6+ mo) 0.5 ML DOSE IMVAC ONE ×2 (20:00→20:15)
[2021-10-30] MEDS ORDERED: HOME MED 1 EA UNK (Hydralazine Hcl [Hydralazine Hcl] 50 MG Tablet) PO SCH (21:00)
[2021-10-30] MEDS: FERRIC CITRATE 210 MG PO SCH (21:00)
[2021-10-30] MEDS ORDERED: ATORVASTATIN 20 MG TAB PO SCH (21:00)
--- NOTE | 2021-10-30 21:06 | P.CNS ---
Date of Consult: 10/30/21 Reason for Consult: ESRD Requesting Physician: Theodore Vanessa Primary Care Provider: Dr. Vanessa Chief Complaint: Persistent Anemia History of Present Illness: 76 yo BM HTN, CKD presented to the hospital with 1-2 weeks of severe, persistent anemia with associated fatigue. He reports black stools but believes it is due to his medication, likely the Auryxia. The case was reviewed with the patient and his . Allergies No Known Allergies Allergy (Verified 03/21/19 09:42) Home medications list reviewed: Yes Home Medications: Doxazosin [Cardura*] 4 mg PO BID 07/07/14 Folic Acid 1 mg PO DAILY 07/07/14 Levothyroxine [Synthroid*] 50 mcg PO DAILY 07/07/14 Amlodipine Besylate [Norvasc] 10 mg PO DAILY 01/25/18 Atorvastatin Calcium [Lipitor] 20 mg PO BEDTIME 01/25/18 carvediloL [Coreg] 0.5 tab PO BID 01/25/18 allopurinoL [Allopurinol] 1 tab PO DAILY 09/05/18 Aspirin [Aspirin EC 81 MG] 1 tab PO DAILY 08/07/21 Ferric Citrate [Auryxia] 2 tab PO TID 08/07/21 Cholecalciferol (Vitamin D3) [Vitamin D3] 1 cap PO DAILY 10/30/21 Hydralazine HCl 50 mg PO BID 10/30/21 - Past Medical/Surgical History Diabetic: Yes -: Lupus -: HTN -: NIDDM -: CVA 2003 -: Renal disease -: Anemia -: Hypothyroidism -: Cholecystectomy - Family History Father Medical History: Hypertension, Diabetes Mother Medical History: Hypertension, Diabetes Brother Medical History: Hypertension, Diabetes Sister Medical History: Hypertension, Diabetes - Social History Smoking Status: Never smoker Alcohol use: No CD- Drugs: No Caffeine use: No Place of Residence: Home Domestic Violence: Patient's denies sexual, physical, or financial abuse. Review of Systems 10-point ROS is otherwise unremarkable Physical Examination Temp Pulse Resp BP Pulse Ox 97.6 F 76 16 174/77 H 98 10/30/21 16:00 10/30/21 16:00 10/30/21 16:00 10/30/21 16:00 10/30/21 16:00 General: In no apparent distress, Cooperative HEENT: Atraumatic Neck: Supple Respiratory: Normal air movement Cardiovascular: Regular rate/rhythm, Edema Gastrointestinal: Soft and benign, Non-distended Musculoskeletal: No clubbing, No contractures Integumentary: No rashes, No cyanosis Neurological: Normal speech Hgb 6.6 Conclusions/Impression: ESRD -HD TIW HTN with CKD/ CHF -Continue Amlodipine -Continue Hydralazine Diastolic CHF, chronic -Low sodium diet -HD with UF -Continue Coreg Anemia in CKD -Retacrit X1 -Transfuse PRBC as ordered CKD MBD -Start Cholecalciferol and Calcitriol -Contiue Auryxia Gout -Continue allopurinol Thank you kindly for the consultation. Critical Care: Yes
[2021-10-30] MEDS: DOXAZOSIN 4 MG TAB PO SCH (21:37)
[2021-10-30] MEDS: HYDRALAZINE HCL 25 MG TABLET PO SCH (21:37)
[2021-10-30] MEDS: carvediloL 3.125 MG TAB PO SCH (21:38)
[2021-10-30] MEDS ORDERED: NA CHLORIDE 0.9% 250 ML ONE (22:06)
--- NOTE | 2021-10-31 02:16 | HP ---
Date of Admission: 10/30/2021 Chief Complaint: Feeling tired. History Of Present Illness: This is a 76-year-old male patient with multiple comorbidities including end-stage renal disease, who is on hemodialysis on Wednesday, Wednesday, and Wednesday under care of nephr ologist, Dr. Avery, came in to see me today with his with some blood test results. These are all lab results from dado operator's office, which is significant for anemia problem, but hemoglobin 1 0.6 on September 03, 2021, 9.2 on September 17, 2021, 8.3 on October 01, 2021, 7 on October 15, 2021, and 6.6 on October 20, 2021. His last hemoglobin at my office was 12.7 on July 29, 2021. Prior to that, his hemoglobin was in range of 10.7 to 10.9 last year. The patient is complaining of feeling tired a nd short of breath with activity. Denies any chest pain. Denies any blood in stool. He is taking i katelynn supplement and with that his stool has been dark in color and that has not changed, but no bright red blood in stool. After the patient was evaluated today, we sent him to hospital for a stat blood work and his hemoglobin today is also 6.6, so arrangements were made for patient to be admitted to [facility] for further management of this anemia problem. He denies any abdominal pain. Denies any heartburn, indigestion. Review of Systems: Constitutional: Significant for fatigue. All other systems reviewed and negative. Allergies: NO KNOWN ALLERGIES. Medications: 1.Atorvastatin 20 mg daily in the evening. 2.Allopurinol 100 mg daily. 3.Amlodipine 10 mg daily. 4.Auryxia 1 tablet daily. 5.Carvedilol 6.25 mg take half a tablet 2 times a day. 6.Doxazosin 4 mg 2 times a day. 7.Folic acid 1 mg daily. 8.Hydralazine 50 mg 2 times a day. 9.Levothyroxine 50 mcg daily. 10.Aspirin 81 mg daily. Past Medical History: Significant for hypothyroidism, type 2 diabetes mellitus, which is diet contro lled, hypertension, hyperlipidemia, end-stage renal disease on hemodialysis, anemia due to chronic ki dney disease and thrombocytopenia. Past Surgical History: Cataract surgery, cholecystectomy. Family History: Father , had hypertension and diabetes. Mother , had hypertension and diabe bhargav. Brother has diabetes and hypertension and sister also has diabetes and hypertension. Social History: Negative for smoking. Use of alcohol, negative. Immunization History: His first dose of COVID-19 vaccine was October 16, 2020. Second dose, November 07, 2020. Physical Examination: VITAL SIGNS: At office, blood pressure 153/63, pulse 75, temperature 96.5, respiratory rate 15, weig ht 177 pounds, height 72 inches. General: Awake, alert, oriented, not in distress. HEENT: Head atraumatic, normocephalic. Conjunctivae nonerythematous. Sclerae white. Mouth, no thr ush or edema noted. Ears/Nose, no mass, lesion, discharge noted. Neck: Supple. No JVD, lymph nodes, bruit, thyromegaly noted. Lungs: Bilateral good equal air entry. Clear to auscultation. No rhonchi. No rales. Heart: Normal heart sounds, no murmur or gallop. Abdomen: Soft, bowel sounds normal. No guarding, rigidity, tenderness, mass, hepatosplenomegaly, dis tention, or bruit noted. Extremities: No leg edema. No calf tenderness. Skin: No rash, ulcer, cellulitis. Lymphatics: No lymph node enlargement in neck, supraclavicular, infraclavicular region. Neuro: No focal neurological deficit. Chest: Unremarkable. External Genitalia: Deferred. Rectal: Deferred. Laboratory Data: Today's CBC is significant for a hemoglobin of 6.6. Impression: 1.Anemia. 2.End-stage renal disease, on hemodialysis. 3.Hypertension. 4.Hyperlipidemia. 5.Type 2 diabetes mellitus. 6.Hypothyroidism. 7.Thrombocytopenia. Plan: Admit the patient to hospital for further evaluation and management of this problem. The suleman ent is appropriate for inpatient and is expected to spend 2 midnights in hospital. We will continue home medications per order, except we will discontinue aspirin at this time. Give 40 mg Protonix IV x1 dose today and starting tomorrow, we will continue on a daily basis. We will give 1 unit of PRBC blood transfusion today and plan to give 2 more units of PRBC blood transfusion tomorrow with hemodia lysis. Consult dado operator and we did reach out to dado operator and he agrees with this treatment p shanae regarding the blood transfusion. The patient will need EGD and colonoscopy and Dr. Ward on out patient basis and I did reach out to Dr. Ward, he is not available as he is out of town, so we will have the patient follow up with Dr. Ward on outpatient basis for endoscopy workup. Details and pl an of treatment discussed with the patient and his . SCD was ordered for DVT prophylaxis. The p atient to ambulate and fall precaution was ordered. NADIA/MODL Voice ID: [id number]
[2021-10-31 05:53] LABS: Absolute Lymphocytes (CBC) 1.7 K/uL (0.7-4.9); Hematocrit 22.4 % (39.6-49.0); Lymphocytes % 28.7 % (15.3-44.8); MPV 9.1 fL (7.6-11.3); RBC Red Blood Cell Count 2.41 M/uL (4.33-5.43)
[2021-10-31 06:02] LABS: Bilirubin Total 1.3 mg/dL (0.2-1.0); Phosphorus 4.2 mg/dL (2.5-4.9); Potassium 4.1 mmol/L (3.5-5.1); Protein, Total 7.1 g/dL (6.4-8.2); Uric Acid 2.9 mg/dL (3.5-7.2)
[2021-10-31] MEDS ORDERED: EPOETIN ALFA-EPBX 10,000 UNIT/ML VIAL SQ SCH (07:00)
[2021-10-31] MEDS ORDERED: MANNITOL 25% 12.5 GM/50 ML VIAL IV PRN (07:31)
[2021-10-31] MEDS ORDERED: NA CHLORIDE 0.9% 1,000 ML IV PRN (07:31)
[2021-10-31] MEDS ORDERED: ALBUMIN HUMAN 25% 50 ML IV SCH (08:00)
[2021-10-31] MEDS ORDERED: AMLODIPINE 10 MG TAB PO SCH (09:00)
[2021-10-31] MEDS ORDERED: FOLIC ACID 1 MG TABLET PO SCH (09:00)
[2021-10-31] MEDS: DOXAZOSIN 4 MG TAB PO SCH (09:00)
[2021-10-31] MEDS ORDERED: PANTOPRAZOLE 40 MG INJ IVP SCH (09:00)
[2021-10-31] MEDS: carvediloL 3.125 MG TAB PO SCH (09:00)
[2021-10-31] MEDS: HYDRALAZINE HCL 25 MG TABLET PO SCH (09:00)
[2021-10-31] MEDS ORDERED: CALCITROL 0.25 MCG CAP PO SCH (09:00)
[2021-10-31] MEDS ORDERED: LEVOTHYROXINE SOD 0.05 MG TABLET PO SCH (09:00)
[2021-10-31] MEDS ORDERED: VITAMIN D 5,000 UNIT CAP PO SCH (09:00)
[2021-10-31] MEDS ORDERED: VITAMIN D 1000 UNIT TAB PO SCH (09:00)
[2021-10-31] MEDS ORDERED: HOME MED 1 EA UNK (Cholecalciferol (Vitamin D3) [Vitamin D3] 25 MCG Capsule) PO SCH (09:00)
[2021-10-31] MEDS: FERRIC CITRATE 210 MG PO SCH ×2 (09:00→14:00)
[2021-10-31] MEDS ORDERED: allopurinoL 100 MG TAB PO SCH (09:00)
[2021-10-31 13:50] VITALS: O2SAT 98
[2021-10-31 16:22] VITALS: BP 175/80; TEMP 99.1
[2021-10-31 17:11] LABS: Hematocrit 28.5 % (39.6-49.0)
--- NOTE | 2021-10-31 20:37 | P.PN ---
Date of Service: 10/31/21 Vital Signs Temp Pulse Resp BP Pulse Ox 99.1 F 80 18 175/80 H 100 10/31/21 16:00 10/31/21 16:00 10/31/21 16:00 10/31/21 16:00 10/31/21 16:00 Lab Results (last 24 hrs) 10/31/21 17:00: Hgb 9.5 L, Hct 28.5 L D 10/31/21 05:30: Sodium 140, Potassium 4.1, Chloride 105, Carbon Dioxide 29, BUN 47 H, Creatinine 7.41 H*, Estimated GFR 9 L, Glucose 97, Uric Acid 2.9 L, Calcium 9.9, Phosphorus 4.2, Magnesium 2.0, Total Bilirubin 1.3 H, AST 12 L, ALT 16, Alkaline Phosphatase 60, Serum Total Protein 7.1, Albumin 3.0 L, Globulin 4.1 H, Albumin/Globulin Ratio 0.7 L 10/31/21 05:30: WBC 6.0, RBC 2.41 L, Hgb 7.4 L, Hct 22.4 L, MCV 93.0, MCH 30.6, MCHC 32.9, RDW 19.6 H, Plt Count 135 L, MPV 9.1, Neutrophils % 60.1, Lymphocytes % 28.7, Monocytes % 8.0, Eosinophils % 2.8, Basophils % 0.4, Absolute Neutrophils 3.6, Absolute Lymphocytes 1.7, Absolute Monocytes 0.5, Absolute Eosinophils 0.2, Absolute Basophils 0.0 10/30/21 20:30: ABO/Rh B POSITIVE, Solid Phase Ab Screen Negative, Crossmatch See Detail Microbiology Results 10/31/21 08:00 Stool Stool Occult Blood (SHERRI) - Final [employer] Assessment/ Plan: Nephrology No dyspnea No chest pain No acute events overnight Vitals, medications, blood work and imaging reviewed in the chart. General: In no apparent distress, Cooperative HEENT: Atraumatic Neck: Supple Respiratory: Normal air movement Cardiovascular: Regular rate/rhythm, Edema Gastrointestinal: Soft and benign, Non-distended Musculoskeletal: No clubbing, No contractures Integumentary: No rashes, No cyanosis Neurological: Normal speech Hgb 6.6 Conclusions/Impression: ESRD -HD TIW -HD today HTN with CKD/ CHF -Continue Amlodipine -Continue Hydralazine Diastolic CHF, chronic -Low sodium diet -HD with UF -Continue Coreg Anemia in CKD -Retacrit X1 -Transfuse PRBC as ordered CKD MBD -Continue Cholecalciferol and Calcitriol -Contiue Auryxia Gout -Continue allopurinol
--- NOTE | 2021-11-01 03:29 | DS ---
Date of Discharge: 10/31/2021 Discharge Disposition: The patient will be discharged to go home. Physical Examination: HEENT: Unremarkable. Lungs: Clear to auscultation. Heart: Heart sounds normal. Abdomen: Soft, bowel sounds normal. No guarding, rigidity, tenderness, or distention. Extremities: No leg edema. Hospital Course: This is a 76-year-old male patient with multiple comorbidities, came into office wi th complaints of feeling tired. Lately, the patient has been having worsening anemia problem. 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 Afte r I evaluated him, decision was made to repeat another outpatient stat CBC and it came back with hemo globin 6.6. Arrangements were made for him to be admitted to the hospital for blood transfusion. Th e patient is feeling tired lately with any day-to-day activity, which is a symptom of his severe anem ia problem. He denies any blood in stool. After he was evaluated yesterday, he was admitted to the hospital. 1 unit of PRBC blood transfusion was given yesterday, which he tolerated very well and tod ay he had his dialysis and received 2 units of blood transfusion with dialysis. We will get post tra nsfusion hemoglobin and hematocrit 2 hours after the blood transfusion and once we reviewed that resu lt, plan will be to discharge him to go home with outpatient followup at my office next week. Discharge Medications And Instructions: 1.Continue all prior home medications. 2.Follow up at my office next week on , which is 11/06/2021 at 10 a.m. Laboratory Data: Hemoglobin was 6.6 prior to admission. This morning, white count 6, hemoglobin 7.4 , and this was after 1 unit PRBC yesterday. Platelets 135. This morning, sodium 140, potassium 4.1, chloride 105, bicarb 29, BUN 47, creatinine 7.41, glucose 97. Liver function tests unremarkable. Final Diagnoses: 1.Anemia. 2.End-stage renal disease, on hemodialysis. 3.Hypertension. 4.Hyperlipidemia. 5.Type 2 diabetes mellitus. 6.Hypothyroidism. 7.Thrombocytopenia. NADIA/MODL Voice ID: [id number] Report ID: [id number]
== END 2021-10-31 18:47 | disposition home or self-care (01) ==
LOC: PRE 12:32 → LAB 12:32 → INTOOBSV 14:05 → 2ND 14:05
PROVIDERS: ADMIT Internal Medicine; ATTEND Internal Medicine
PROC: 5A1D70Z Performance of Urinary Filtration, Intermittent, Less than 6 Hours Per Day (ICD-10-PCS; principal; 2021-10-31)
DX: D64.9 Anemia, unspecified (principal); I12.0 Hypertensive chronic kidney disease with stage 5 chronic kidney disease or end stage renal disease; E11.22 Type 2 diabetes mellitus with diabetic chronic kidney disease; N18.6 End stage renal disease; E78.5 Hyperlipidemia, unspecified; E03.9 Hypothyroidism, unspecified; D69.6 Thrombocytopenia, unspecified; Z86.73 Personal history of transient ischemic attack (TIA), and cerebral infarction without residual deficits; Z20.822 Contact with and (suspected) exposure to COVID-19
CPT/HCPCS: 36430 ×2; 85025 ×2; 36415 ×2; 86900; 83735; 86850; 84100; 86901; 84550; 85018; 85014; 80053; 86704; 86317; 87340; 90935; U0003; C9113 ×2; J1644; Q5106; P9016 ×3; J7050; G0378; Q2035

== ENCOUNTER 2022-05-20 12:10 | Emergency (ER) | payer OTHER ==
--- OUTSIDE RECORDS SUMMARY | 2022-05-20 12:16 | XMS REPORT | Continuity of Care Document ---
:1945 Author Organization [facility] t Address [address] [place] [place] [address] Care Team Providers Name Role Phone MARIN TERRI Kirlkand Primary Care Physician Unavailable Rosaline Armstrong RN Attending Clinician Unavailable STEVE RAMSAY Attending Clinician Unavailable Gianluca Alba MD Attending Clinician Sampson Sparks MD Attending Clinician Steve Ramsay DO Attending Clinician ZURDO LIVINGSTON Attending Clinician Unavailable Gina Cotton DO Attending Clinician ARABELLA LEDESMA Attending Clinician Unavailable SAMPSON SPARKS Admitting Clinician Unavailable Sampson Sparks MD Admitting Clinician ARABELLA LEDESMA Admitting Clinician Unavailable Payers Payer Name Policy Type Policy Number Effective Date Expiration Date S ource MEDICARE PART A [id number] 1996 \\T\\ B 00:00:00 [employer] INDEMNITY [id number] 2017 00:00:00 Problems Condition Condition Condition Status Onset Resolution Last Treating Co mments Source Name Details Category Date Date Treatment Clinician Date Aortic Aortic Disease Active Univers stenosis stenosis 05-01 ity of 00:00: [place] 00 Medical Branch Bradycardi Bradycardi Disease Active U nivers a a 9-25 ity of 00:00: [place] [facility] ESRD ESRD Disease Active Univers needing needing 9-25 ity of dialysis dialysis 00:00: [place] [facility] 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 00:00: Cynthia guidry diabetes diabetes 00 Medica l mellitus mellitus Branch Renal Renal Disease Active Univers osteodystr osteodystr 8 it y of ophy ophy 00:00: [place] [facility] Rheumatoid Rheumatoid Disease Active U nivers arthritis arthritis 828 ity of 00:00: [place] [facility] 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 00:00: [place] s 00 Medical Branch Vitamin D Vitamin D Disease Active Uni vers deficiency deficiency 8 it y of , , 00:00: [place] unspecifie unspecifie 00 Me dical d d Branch Allergic Allergic Disease Active Unive rs rhinitis rhinitis 8-28 ity of due to due to 00:00: [place] pollen pollen 00 Medical Branch 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 Uni vers chronic chronic 8-28 ity of kidney kidney 00:00: [place] disease disease 00 Medical Branch Bilateral Bilateral Disease Active Uni vers knee pain knee pain 8-28 ity of 00:00: [place] 00 Medical Branch Chronic Chronic Disease Active 2019 Univers low back low back 03-29 ity of pain pain 00:00: [place] [facility] Hyperkalem Hyperkalem Disease Active 2019 U nivers ia ia 03-29 ity of 00:00: [place] [facility] Hypertensi Hypertensi Disease Active U nivers ve heart ve heart 03-29 ity of and and 00:00: [place] chronic chronic 00 Medical kidney kidney Branch disease disease stage 5 stage 5 Iron Iron Disease Active Univers deficiency deficiency 03-29 it y of anemia anemia 00:00: [place] 00 Medical Branch Lower Lower Disease Active Univers urinary urinary 03-29 ity of tract tract 00:00: [place] symptoms symptoms 00 Medica l due to due to Branch benign benign prostatic prostatic hyperplasi hyperplasi a a Lumbar Lumbar Disease Active Univers spondylosi spondylosi 03-29 it y of s s 00:00: [place] [facility] 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 ICD10 Diagnosis Term Clinical Documentation Clerk Utility Lupus Lupus Disease Active 2013-08 Univers nephritis nephritis 08-27 ity of 00:00: [place] [facility] Fever Fever Disease Active 2013-08 Univers 08-27 ity of 00:00: [place] [facility] DM DM Disease Active 2013-08 Univers (diabetes (diabetes 08-27 ity of mellitus) mellitus) 00:00[place] HLD HLD Disease Active 2013-08 Univers (hyperlipi (hyperlipi 08-27 it y of demia) demia) 00:00: [place] [facility] Weakness Weakness Disease Active 2013-08 Unive rs 08-27 ity of 00:00: [place] [facility] Systemic Systemic Disease Active Last Metho di lupus lupus Assessmen st erythemato erythemato t & Plan: Hospita marlon marlon Formattin l g of this note might be different from the original. Mr. 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 He has been stable on his current regimen for many many years now. I really think the biggest problem that he will encounter is his poorly-co ntrolled diabetes mellitus. I see no evidence of significa nt lupus activity currently . He knows to get labs every 3 months because of the methotrex ate. 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 Hospita with with l neurologic neurologic al al manifestat manifestat ions ions Osteoarthr Osteoarthr Disease Active M ethodi itis of itis of st shoulders, shoulders, Ho spita bilateral bilateral l Hypertensi Hypertensi Disease Active M ethodi on on st Hospita l GERD GERD Disease Active Methodi without without st esophagiti esophagiti Ho spita s s l Hypothyroi Hypothyroi Disease Active M ethodi dism dism st Hospita l Allergies, Adverse Reactions, Alerts Allergy Allergy Status Severity Reaction(s) Onset Inactive Treating Comm ents Source Name Type Date Date Clinician NO KNOWN Drug Active Univers ALLERGIE Class ity of S [facility] Family History Family Member Diagnosis Comments Start Date Stop Date Source Natural sister No Known Problems Met [facility] Natural sister Lupus [facility] Natural brother No Known Problems [facility] Natural brother Lupus [facility] Natural father Hypertension [facility] Natural mother Diabetes [facility] Social History Social Habit Start Date Stop Date Quantity Comments Source Exposure to 2022-04-16 2022-04-26 Not sure [facility]-CoV-2 00:00:00 01:43:00 [facility] Branch Tobacco use and 2022-04-26 2022-04-26 Smokeless tobacco Un iversity of exposure 00:00:00 00:00:00 non-user [facility] Education 2022-04-26 2022-04-26 21 [facility] 00:00:00 00:00:00 [facility] Alcohol intake 2019-08-08 2019-08-08 Current [facility] 00:00:00 00:00:00 non-drinker of Hospital alcohol (finding) Sex Ass[birth year] [facility] 00:00:00 00:00:00 Hospital Smoking Status Start Date Stop Date Source Never smoked tobacco [facility] Medications Ordered Filled Start Stop Current Ordering Indication Dosage Frequency Signature Comments Components Source Medication Medication Date Date Medication? Clinician (SIG) Name Name levothyroxi 2021-08 Yes 75ug Take 75 Uni vers ne 75 mcg 0-01 mcg by ity of tablet 15:39: mouth [place] [address] daily. Medical Branch amLODIPine 2021-08 Yes 10mg Take 10 mg U nivers (NORVASC) 0-01 by mouth ity of 10 mg 15:39: daily. [place] tablet 11 [facility] Branch doxazosin 4 2021-08 Yes 4mg Take 4 mg U nivers mg tablet 0-01 by mouth 2 ity of 15:39: (two) [place] 11 times Medical daily. Branch atorvastati 2021-08 Yes [id number] .5{tbl} Take 0.5 Univers n 40 mg 0-01 tablets by ity of tablet 15:39: mouth [place] [address] daily. [facility] Branch aspirin 81 2021-08 Yes 81mg Take 81 mg U nivers mg chewable 0-01 by mouth ity of tablet 15:39: daily. [address] foLIC acid 2021-08 Yes 1mg Take 1 mg Un mahsa 1 mg tablet 0-01 by mouth ity of 15:39: daily. [address] sodium 2021-08 Yes [id number] 325mg Take 325 Un mahsa bicarbonate 0-01 mg by ity of 325 mg 15:39: mouth 2 [place] tablet 11 (two) Medical times Branch daily. allopurinoL 2021-08 Yes 100mg Take 100 U nivers 100 mg 0-01 mg by ity of tablet 15:39: mouth in [place] 11 the Medical morning. Branch ferric 2021-08 Yes 210mg Take 210 Univer s citrate 0-01 mg by ity of (AURYXIA) 15:39: mouth 3 [place] 210 mg iron 11 (three) Medic al Tab times Branch daily. 2 tab 3x with meals 1 tab with a snack Cholestyram 2021-08 Yes 4g Take 4 g Un mahsa ine Light 4 0-01 by mouth 3 it y of gram powder 15:39: (three) [place] 11 times Medical daily with Branch meals. levothyroxi 2021-08 Yes 75ug Take 75 Uni vers ne 75 mcg 0-01 mcg by ity of tablet 15:39: mouth [place] [address] daily. Medical Branch amLODIPine 2022-1 Yes 10mg Take 10 mg U nivers (NORVASC) 0-01 by mouth ity of 10 mg 15:39: daily. [place] tablet 11 [facility] Branch doxazosin 4 2021-08 Yes 4mg Take 4 mg U nivers mg tablet 0-01 by mouth 2 ity of 15:39: (two) [place] 11 times Medical daily. Branch atorvastati 2021-08 Yes [id number] .5{tbl} Take 0.5 Univers n 40 mg 0-01 tablets by ity of tablet 15:39: mouth [place] 11 daily. Medical Branch aspirin 81 2021-08 Yes 81mg Take 81 mg U nivers mg chewable 0-01 by mouth ity of tablet 15:39: daily. [address] foLIC acid 2021-08 Yes 1mg Take 1 mg Un mahsa 1 mg tablet 0-01 by mouth ity of 15:39: daily. [address] sodium 2021-08 Yes [id number] 325mg Take 325 Un mahsa bicarbonate 0-01 mg by ity of 325 mg 15:39: mouth 2 [place] tablet 11 (two) Medical times Union daily. allopurinoL 2021-08 Yes 100mg Take 100 U nivers 100 mg 0-01 mg by ity of tablet 15:39: mouth in [place] [address] the Medical morning. Branch ferric 2021-08 Yes 210mg Take 210 Univer s citrate 0-01 mg by ity of (AURYXIA) 15:39: mouth 3 [place] 210 mg iron 11 (three) Medic al Tab times Branch daily. 2 tab 3x with meals 1 tab with a snack Cholestyram 2021-08 Yes 4g Take 4 g Un mahsa ine Light 4 0-01 by mouth 3 it y of gram powder 15:39: (three) [place] 11 times Medical daily with Branch meals. ipratropium Yes 3mL 3 mL, Unive rs -albuteroL 05-01 Inhalation ity of (DUONEB) 01:00: , BID, [place] 0.5 mg-3 00 First dose Medic al mg(2.5 mg (after Branch base)/3 mL last nebulizer modificati solution 3 on) on Rachel mL 04/30/22 at 1999, Until Discontinu ed, Routine benzocaine- Yes [id number] 1{lozen 1 Lozenge, Univers menthoL 04-30 ge} Oral, ity of (CEPACOL 22:22: Q4HPRN, [place] SORE THROAT 10 Starting Medi jimenez (SATNAM-MEN)) on [place] Branch lozenge 1 04/30/22 at Lozenge 1722, Until Discontinu ed, Routine, Sore throat levothyroxi 2021- Yes 75ug 75 mcg, Uni vers ne 04-28 Oral, ity of (SYNTHROID) 11:00: QAM-0600, [place] tablet 75 00 First dose Medi jimenez mcg on Wed Branch 04/28/22 at 0600, Until Discontinu ed, Routine epoetin 202- No [id number] 10,000 Unive rs will-epbx 04-27 Units, ity of (RETACRIT) 14:45: 15:35 Intravenou [place] injection 00 :00 s, Medical 10,000 DIALYSIS Branch Units ONCE - PT ROOM, 1 dose, On Wed04/27/22 at 0945, Routine
archeology faculty member approving Restricted medication : STANLEY PATIÑO dextrose 50 0 Yes 25mL 25 mL, Univ ers % in water 04-27 Slow IV ity of (D50W) 14:28: Push, PRN [place] injection 04 - SEE Medical [facility] NS, 1 dose, Starting on Wed04/27/22 at 0928, Until Discontinu ed, Routine, Administer once if after insulin administra tion, blood glucose is 71-150 mg/dL and patient is unable to eat a 15 g carb snack atorvastati Yes 20mg 20 mg, Univ ers n (LIPITOR) 04-27 Oral, ity of tablet 20 14:00: DAILY, [place] mg 00 First dose Medical on Wed Branch 04/27/22 at 0900, Until Discontinu ed, Routine aspirin 0 Yes 81mg 81 mg, Univers chewable 04-27 Oral, ity of tablet 81 14:00: DAILY, [place] mg 00 First dose Medical on Wed Branch 04/27/22 at 0900, Until Discontinu ed, Routine calcium 2021-0 202- No 2g 2 g, IV Univer s gluconate 2 04-27 Infusion, it y of g in NaCl 13:30: 13:13 at 200 [place] 100 mL 00 :00 mL/hr Medical (ISO-OSM) Administer Bran ch RTU IV over 30 infusion 2 Minutes, g ONCE, 1 dose, On 04/27/22 at 0830, STAT dextrose 50 2021-0 2021- No 50mL 50 mL, Uni vers % in water 04-27 Slow IV ity o f (D50W) 12:30: 12:43 Push, [place] injection 00 :00 ONCE, 1 Medical 50 mL dose, On Branch 04/27/22 at 0730, ANGELA insulin 2021-0 2021- No .1U/kg 7.13 Units U nivers regular 04-27 (0.1 ity of human 12:30: 12:43 Units/kg [place] (HUMULIN R) 00 :00 ?71.3 kg), Me dical injection IV Push, Union 7.13 Units ONCE, 1 dose, On 04/27/22 at 0730, ANGELA
In dication for insulin: Hyperkalem ia- Please use the Insulin Protocol for Hyperkalem ia order set sodium 2021-0 2021- No 50meq 50 mEq, Univer s bicarbonate 04-27 Slow IV ity of 1 mEq/mL 12:30: 12:43 Push, [place] (8.4 %) 00 :00 ONCE, 1 Medical injection dose, On Branch 50 mEq 04/27/22 at 0730, ANGELA glucagon 0 Yes 1mg 1 mg, Univers (GLUCAGEN 04-27 Intramuscu ity of DIAGNOSTIC 12:26: lar, PRN, [place] KIT) 52 Starting Medical injection 1 on Mon Branch mg 04/27/22 at 0726, Until Discontinu ed, ANGELA, Blood Glucose < or = 70 mg/dL and patient is unable to swallow or has mental changes. dextrose 50 2021-0 Yes 25mL 25 mL, Univ ers % in water 04-27 Slow IV ity of (D50W) 12:26: Push, PRN, [place] injection 52 Starting Medica l 25 mL on Mon Branch 04/27/22 at 0726, Until Discontinu ed, ANGELA, Blood Glucose < or = 70 mg/dL and patient is unable to swallow or has mental status changes. calcium 2021- No 2g 2 g, IV Univer s gluconate 2 04-27 Infusion, it y of g in NaCl 07:15: 07:38 at 200 [place] 100 mL 00 :00 mL/hr Medical (ISO-OSM) Administer Bran ch RTU IV over 30 infusion 2 Minutes, g ONCE, 1 dose, On 04/27/22 at 0215, Routine sodium 2021- No 100meq 100 mEq, Univ ers bicarbonate 04-27 Slow IV ity of 1 mEq/mL 07:15: 07:00 Push, [place] (8.4 %) 00 :00 ONCE, 1 Medical injection dose, On Branch 100 mEq 04/27/22 at 0215, Routine acetaminoph Yes 650mg 650 mg, Un mahsa en 04-27 Oral, ity of (TYLENOL) 05:34: Q6HPRN, [place] 160 mg/5 mL 21 Starting Medi jimenez oral liquid on Wed Branch 650 mg 04/27/22 at 0034, Until Discontinu ed, Routine, Pain (scale 4-6) mupirocin 2021- No Nasal, Unive rs (BACTROBAN 04-27 10-01 Q12H, 10 ity of NASAL OINT) 05:00: 00:59 doses, [place] 2 % nasal 00 :00 First dose Medi jimenez ointment on Mon Branch 04/27/22 at 0000, Last dose on Wed05/01/22 at 0800, Routine levothyroxi 2021- No 38ug 38 mcg, Un mahsa ne 04-26 Intravenou ity of (SYNTHROID) 19:00: 13:52 s, DAILY, [place] injection 00 :00 First dose Medi jimenez 38 mcg on Sun Branch 04/26/22 at 1400, Until Discontinu ed, Routine dextrose 50 Yes 25mL 25 mL, Univ ers % in water 04-26 Slow IV ity of (D50W) 16:13: Push, PRN, [place] injection 01 Starting Medica l 25 mL on Sun Branch 04/26/22 at 1113, Until Discontinu ed, Routine, Blood Glucose <= 70 atropine 2021- No .4mg 0.4 mg, IV Un mahsa injection 04-26 Push, ity of 0.4 mg 14:31: 15:22 Q5MIN PRN, [place] 23 :16 Starting Medical on Sun Branch 04/26/22 at 0931, Until 04/26/22 at 1022, Routine, Symptomati c Bradycardi a insulin 2021- No 10U 10 Units, Univ ers regular 04-26 Slow IV ity of human 14:30: 13:50 Push, [place] (HUMULIN R) 00 :00 ONCE, 1 Medic al injection dose, On Branch 10 Units 04/26/22 at 0930, Routine
Indicatio n for insulin: Hyperglyce leroy dextrose 50 2021- No 25mL 25 mL, Uni vers % in water 04-26 Slow IV ity o f (D50W) 14:30: 13:46 Push, [place] injection 00 :00 ONCE, 1 Medical 25 mL dose, On Branch 04/26/22 at 0930, Routine albuterol 2021- No 2.5mg 2.5 mg, Uni vers (PROVENTIL) 04-26 Inhalation i ty of 2.5 mg /3 13:52: 14:46 , PRN, 4 [place] mL (0.083 56 :00 doses, Medical %) Starting Union nebulizer on [place] solution 04/26/22 at 2.5 mg 0852, Until Discontinu ed, Routine, Shortness of Breath, Wheezing, Hyperkalem ia ondansetron 2021- No 4mg 4 mg, Slow Univers (ZOFRAN 04-26 IV Push, ity of (PF)) 13:30: 13:30 ONCE, On [place] injection 4 00 :00 Sun Medical mg 04/26/22 at Branch 0830, For 1 dose
Do ses of ondansetro n 16 mg and above need to be administer ed via IV piggyback. For Dose >=24mg ECG monitoring is advisable.
lidocaine-p Yes Topical, Un mahsa rilocaine 04-26 QDAILYPRN, ity of (EMLA) 13:22: Starting [place] 2.5-2.5 % 49 on Sun Medical cream 04/26/22 at Branch 0822, Until Discontinu ed, Routine, Local anesthesia heparin Yes 5000U 5,000 Univers (porcine) 9-25 Units, ity of injection 13:00: Subcutaneo [place] 5,000 Units 00 us, Q12H, Med ical First dose Branch on Wed04/26/22 at 0800, Until Discontinu ed, Routine famotidine 2021- No 10mg 10 mg, [facility] ers (PEPCID 04-26 Slow IV ity of (PF)) 13:00: 14:45 Push, [place] injection 00 :08 Q12H, 6 Medical 10 mg doses, Branch First dose on Wed04/26/22 at 0800, Last dose on Wed04/28/22 at 2000, Routine
Indicatio n for use: None of the above DOPamine Yes 2.5ug/k 2.5-7.5 Uni vers 800 mg/500 9-25 g/min mcg/kg/min it y of mL (1,600 12:45: ?74.8 kg [place] mcg/mL) 46 (7.0125-21 Medica l infusion .0375 Branch RTU mL/hr, rounded to 7.01-21.04 mL/hr), IV Infusion, TITRATE, MAP Goal > or = 65 mmHg, for HR < 40, Starting on Wed04/26/22 at 0745
In itiate infusion at 2.5 mcg/kg/min . &nb sp;Increas e by 2.5 mcg/kg/min every 1 minute to 5 minutes as needed to reach and maintain goal blood pressure.& nbsp;&nbsp ;Maximum dose = 7.5 mcg/kg/min . If goal not maintained at maximum allowed dose, contact prescriber . &nb sp;Adminis ter only one peripheral intravenou s vasopresso r at a time.
sodium 2021- No 100meq 100 mEq, [facility] ers bicarbonate 04-26 Slow IV ity of 1 mEq/mL 12:30: 11:54 Push, [place] (8.4 %) 00 :00 ONCE, 1 Medical injection dose, On Branch 100 mEq [place] 04/26/22 at 0730, Routine calcium No 2g 2 g, IV Univer s gluconate 2 04-26 Infusion, it y of g in NaCl 12:30: 12:31 at 200 [place] 100 mL 00 :00 mL/hr Medical (ISO-OSM) Administer Bran ch RTU IV over 30 infusion 2 Minutes, g ONCE, 1 dose, On [place] 04/26/22 at 0730, Routine ipratropium No 3mL 3 mL, [facility] ers -albuteroL 04-26 Inhalation it y of (DUONEB) 11:45: 13:40 , QID, [place] 0.5 mg-3 00 :00 First dose Medic al mg(2.5 mg on [place] Branch base)/3 mL 04/26/22 at nebulizer 0645, solution 3 Until mL Discontinu ed, Routine dextrose 50 No 25mL 25 mL, Uni vers % in water 04-26 Slow IV ity o f (D50W) 10:15: 10:05 Push, [place] injection 00 :00 ONCE, 1 Medical 25 mL dose, On Branch [place] 04/26/22 at 0515, Routine insulin No 10U 10 Units, [facility] ers regular 04-26 Slow IV ity of human 08:45: 08:09 [place], [place] (HUMULIN R) 00 :00 ONCE, 1 Medic al injection dose, On Branch 10 Units [place] 04/26/22 at 0345, Routine
Indicatio n for insulin: Hyperglyce leroy dextrose 50 No 50mL 50 mL, Uni vers % in water 04-26 Slow IV ity o f (D50W) 08:45: 08:07 Push, [place] injection 00 :00 ONCE, 1 Medical 50 mL dose, On Branch [place] 04/26/22 at 0345, Routine calcium No 1g 1 g, IV Univer s gluconate 1 04-26 Infusion, it y of g in NaCl 08:30: 08:39 at 100 [place] 50 mL 00 :00 mL/hr Medical (ISO-OSM) Administer Bran ch RTU IV over 30 infusion 1 Minutes, g ONCE, 1 dose, On [place] 04/26/22 at 0330, Routine NaCl 0.9% 2021- No 250mL at 999 Univ ers (NS) IV 04-26-25 mL/hr, ity of infusion 08:30: 19:24 Intravenou [place] 250 mL 00 :41 s, Medical CONTINUOUS Branch , Starting on [place] 04/26/22 at 0330, Until [place] 04/26/22 at 1424, Routine atropine 2021- No 1mg 1 mg, IV Univ ers injection 1 04-26 Push, ity of mg 08:00: 07:47 ONCE, 1 [place] 00 :00 dose, On Medical [facility] 04/26/22 at 0300, Routine albuterol 2021- No 10mg 10 mg, Unive rs (PROVENTIL) 04-26 Inhalation i ty of 2.5 mg /3 08:00: 08:16 , ONCE, 1 [place] mL (0.083 00 :00 dose, On Medica l %) [facility] nebulizer 04/26/22 at solution 10 0300, STAT mg proMETHazin 2021- No 25mg 25 mg, IV Univers e 04-26 Piggyback, ity of (PHENERGAN) 07:15: 07:21 ONCE, 1 [place] 25 mg in 00 :00 dose, On Medical NaCl 0.9% [facility] (NS) 50 mL 04/26/22 at IV 0215, ANGELA piggyback sodium Yes 5mL 5 mL, Univers chloride 04-26 Intravenou ity o f (NS) 06:52: s, PRN, [place] injection 5 13 Starting Medi jimenez mL on [facility] 04/26/22 at 0152, Until Discontinu ed, Routine, IV line flushing tetanus-dip 2019-08 2020- No .5mL 0.5 mL, Un mahsa htheria 0-19 10-19 Intramuscu ity o f toxoids 19:15: 19:26 lar, ONCE, [place] as (TENIVAC) 00 :00 1 dose, Medical 5-2 Lf Mon Branch unit/0.5 mL 05/20/20 injection at 1415, 0.5 mL Routine lidocaine-p 2019-0 Yes [id number] administra Methodi rilocaine 2-[address] (EMLA) 00:00: local Hospita 2.5-2.5 % 00 anesthetic l cream drug. Apply over fistula 30-45 min before dialysis acetaminoph 2020-0 Yes [id number] 1{tbl} Q6H Take 1 M ethodi en-codeine 1-[address] (TYLENOL 00:00: mouth Hospita WITH 00 every 6 l CODEINE #3) (six) 300-30 mg hours as per tablet needed for moderate pain for up to 5 days .acute pain. amLODIPine 2019-0 Yes 10mg QD Take 10 mg M ethodi (NORVASC) 1-[address] 10 MG 14:22: daily. Hospita tablet 39 l atorvastati 2020-0 Yes 20mg QD Take 20 mg Methodi n (LIPITOR) 1-[address] 40 MG 14:22: daily. Hospita tablet 39 l aspirin 2020-0 Yes 81mg QD Take 81 mg Meth diana (ECOTRIN) 1-[address] 81 MG 14:22: daily. Hospita enteric 39 l coated tablet cholecalcif 2020-0 Yes 1000U QD Take 1,000 Methodi renetta, 1-[address] vitamin D3, 14:22: mouth Hospi ta (VITAMIN 39 daily. l D3) 1,000 unit tablet iron-vitami 2020-0 Yes 1{tbl} QD Take 1 Me thodi n C 65 mg 1-[address] iron- 125 14:22: mouth Hospita mg 39 daily. l tablet,loco yed release (DR/EC) aspirin-jimenez 2020-0 Yes 81mg Take 81 mg Methodi cium 1-[address] carbonate 14:22: Hospita 81 mg-300 39 l mg calcium(777 mg) tablet hydrALAZINE 2019-0 Yes 10mg Q.[id number] Take 10 mg Methodi (APRESOLINE 1-06 [id number] mouth 3 st ) 10 MG 14:22: 3D (three) Hospita tablet 39 times a l day. allopurinol 2018-08 Yes 100mg QD Take 100 M ethodi (ZYLOPRIM) 1-[address] 100 MG 00:00: mouth Hospita tablet 00 daily. l carvedilol 2018-08 Yes 31.25mg Q.5D Take 31.25 Methodi (COREG) 0-[address] 6.25 MG 00:00: mouth 2 Hospita tablet 00 (two) l times a day. levothyroxi Yes 1{tbl} Take 1 Me thodi ne 9-[address] (SYNTHROID) 00:00: mouth. Hosp manjinder 50 mcg 00 l tablet sodium 2017-08 Yes [id number] 325mg Take 325 Un mahsa bicarbonate 2-03 [...] by mouth 2 ity of 14:52: (two) times Medical daily. Branch atorvastati 2017-08 Yes [id number] .5{tbl} Take 0.5 Univers n 40 mg 2-03 tablets by ity of tablet 14:52: mouth daily. Medical Branch aspirin 81 2017-08 Yes 81mg Take 81 mg U nivers mg chewable 2-03 by mouth ity of tablet 14:52: daily. Medical Branch foLIC acid 2017-08 Yes 1mg Take 1 mg Un mahsa 1 mg tablet 2-03 by mouth ity of 14:52: daily. Medical Branch hydralAZINE Yes 50mg Take 50 mg Univers 10 mg 5-23 by mouth ity of tablet 00:00: in the morning Medical and 50 mg Branch in the evening. hydralAZINE Yes 10mg Take 10 mg Univers 10 mg 5-23 by mouth ity of tablet 00:00: daily. Medical Branch hydralAZINE 2017-0 Yes 50mg Take 50 mg Univers 10 mg 5-23 by mouth ity of tablet 00:00: in the morning Medical and 50 mg Branch in the evening. carvedilol Yes 1{tbl} Take 1 Uni vers 6.25 mg 4-26 tablet by ity of tablet 00:00: mouth in [place] 00 the Medical morning Branch and 1 tablet in the evening. Take with meals. carvedilol Yes 1{tbl} Take 1 Uni vers 6.25 mg 4-26 tablet by ity of tablet 00:00: mouth [place] 00 daily. Medical Branch carvedilol Yes 1{tbl} Take 1 Uni vers 6.25 mg 4-26 tablet by ity of tablet 00:00: mouth in [place] 00 the Medical morning Branch and 1 tablet in the evening. Take with meals. doxazosin Yes Comments: Met bhatt (CARDURA) 4 04-22 | Filled st [facility] tablet 00:00: Date: Apr l 12:00AM | Patient Notes: TAKE 1 TABLET BY ORAL ROUTE 2 TIMES EVERY DAY Duration: 90 Immunizations Ordered Filled Immunization Date Status Comments Sour e Immunization Name Name SARS-COV-2 COVID-19 2020-11-07 Completed Unive rsity of PFIZER VACCINE 00:00:00 [facility] SARS-COV-2 COVID-19 2020-11-07 Completed Unive rsity of PFIZER VACCINE 00:00:00 [facility] SARS-COV-2 COVID-19 2020-10-16 Completed Unive rsity of PFIZER VACCINE 00:00:00 [facility] SARS-COV-2 COVID-19 2020-10-16 Completed Unive rsity of PFIZER VACCINE 00:00:00 [facility] Td 2020-05-20 Completed [facility] 00:00:00 [facility] Td 2020-05-20 Completed [facility] 00:00:00 [facility] Td 2020-05-20 Completed [facility] 00:00:00 [facility] Vital Signs Vital Name Observation Time Observation Value Comments Source Systolic blood 2022-05-02 15:14:00 129 mm[Hg] Univer sity of pressure [facility] Diastolic blood 2022-05-02 15:14:00 50 mm[Hg] Unive rsity of pressure [facility] Heart rate 2022-05-02 15:14:00 71 /min [facility] Body temperature 2022-05-02 15:14:00 36.56 Althea [facility] Respiratory rate 2022-05-02 15:14:00 16 /min [facility] Oxygen saturation in 2022-05-02 15:14:00 96 /min Norris of Arterial blood by [facility] Pulse oximetry Branch Body weight 2022-05-01 16:34:00 72.8 kg [facility] BMI 2022-05-01 16:34:00 21.77 kg/m2 [facility] Body height 2022-04-26 06:47:00 182.9 cm [facility] Systolic blood 2020-05-20 19:00:00 175 mm[Hg] Univer sity of [facility] Diastolic blood 2020-05-20 19:00:00 78 [facility] 2020-05-20 19:00:00 68 /min [facility] Respiratory rate 2020-05-20 19:00:00 18 /min [facility] Oxygen saturation in 2020-05-20 19:00:00 99 /min [facility] Arterial blood by [facility] Pulse oximetry Branch Body temperature 2020-05-20 17:34:00 37.33 Althea [facility] weight 2020-05-20 17:34:00 85.276 kg [facility] BMI 2020-05-20 17:34:00 25.50 kg/m2 [facility] Procedures Procedure Date / Time Performing Clinician Source Performed XR KUB 2022-05-02 16:00:00 Steve Ramsay Norris o f [facility] POCT GLUCOSE (AUTOMATED) 2022-05-02 15:17:00 Steve Ramsay [facility] POCT GLUCOSE (AUTOMATED) 2022-05-02 00:58:00 Steve Ramsay [facility] POCT GLUCOSE (AUTOMATED) 2022-05-01 17:40:00 Steve Ramsay [facility] POCT GLUCOSE (AUTOMATED) 2022-05-01 13:54:00 Steve Ramsay [facility] BASIC METABOLIC PANEL 2022-05-01 09:44:00 [facility] (NA, K, CL, CO2, GLUCOSE, Medica l Branch BUN, CREATININE, CA) CBC WITH DIFF 2022-05-01 09:44:00 Sobia [facility] POCT GLUCOSE (AUTOMATED) 2022-05-01 02:55:00 Sobia Steve [facility] POCT GLUCOSE (AUTOMATED) 2022-04-29 21:19:00 MoulinGianluca [facility] POCT GLUCOSE (AUTOMATED) 2022-04-29 16:28:00 MoulinGianluca [facility] PHOSPHORUS 2022-04-29 13:05:00 Zafar [facility] MAGNESIUM 2022-04-29 13:05:00 Zafar, [facility] BASIC METABOLIC PANEL 2022-04-29 13:05:00 Zafar [facility] (NA, K, CL, CO2, GLUCOSE, Medica l Branch BUN, CREATININE, CA) CBC WITH DIFF 2022-04-29 13:05:00 Zafar [facility] POCT GLUCOSE (AUTOMATED) 2022-04-29 13:04:00 MoulinGianluca [facility] POCT GLUCOSE (AUTOMATED) 2022-04-29 00:56:00 Moulin, Gianluca [facility] POCT GLUCOSE (AUTOMATED) 2022-04-28 22:49:00 MoulinGianluca [facility] TRANSTHORACIC ECHO (TTE) 2022-04-28 20:08:00 Dominik Stephen [facility] POCT GLUCOSE (AUTOMATED) 2022-04-28 17:16:00 MoulinGianluca [facility] POCT GLUCOSE (AUTOMATED) 2022-04-28 13:23:00 MoulinGianluca [facility] MAGNESIUM 2022-04-28 07:20:00 [facility] BASIC METABOLIC PANEL 2022-04-28 07:20:[address] [facility] (NA, K, CL, CO2, GLUCOSE, Medica l Branch BUN, CREATININE, CA) CBC WITH DIFF 2022-04-28 07:20:00 Dennis, Kadeem [facility] MAGNESIUM 2022-04-27 22:09:00 Monika Lobobeth [facility] BASIC METABOLIC PANEL 2022-04-27 22:09:00 Jeanette Lobo [facility] (NA, K, CL, CO2, GLUCOSE, Medica l Branch BUN, CREATININE, CA) CBC WITH DIFF 2022-04-27 22:09:00 Zafar [facility] PREPARE PACKED RBC 2022-04-27 18:47[facility] 2022-04-27 15:09:00 [facility] ONLY) [facility] HB ABO GROUPING 2022-04-27 13:35:00 [facility] PHOSPHORUS 2022-04-27 11:24:00 Mindy [facility] MAGNESIUM 2022-04-27 11:24:00 Mindy [facility] THYROID STIMULATING 2022-04-27 11:24:00 Zafar [facility] HORMONE [facility] BASIC METABOLIC PANEL 2022-04-27 11:24:00 Radha Guillne [facility] (NA, K, CL, CO2, GLUCOSE, Medica l Branch BUN, CREATININE, CA) CBC WITH DIFF 2022-04-27 11:24:00 Jennifer [facility] XR CHEST 1 VW 2022-04-27 11:15:00 Mindy [facility] POCT GLUCOSE (AUTOMATED) 2022-04-27 09:29:00 Gianluca Alba [facility] PHOSPHORUS 2022-04-27 05:38:00 [facility] MAGNESIUM 2022-04-27 05:38:00 Anjali [facility] BASIC METABOLIC PANEL 2022-04-27 05:38:[address] [facility] [facility] (NA, K, CL, CO2, GLUCOSE, Medica l Branch BUN, CREATININE, CA) CBC WITH DIFF 2022-04-27 05:38:00 Gianluca Alba o [facility] POCT GLUCOSE (AUTOMATED) 2022-04-27 03:49:00 Moulin, Gianluca [facility] POCT GLUCOSE (AUTOMATED) 2022-04-26 23:28:00 Moulin, Gianluca [facility] POCT GLUCOSE (AUTOMATED) 2022-04-26 23:06:00 Moulin, Gianluca [facility] POCT GLUCOSE (AUTOMATED) 2022-04-26 22:49:00 Moulin, Gianluca [facility] POCT GLUCOSE (AUTOMATED) 2022-04-26 22:34:00 MoGianluca aguilar [facility] PHOSPHORUS 2022-04-26 20:11:00 Mindy [facility] MAGNESIUM 2022-04-26 20:11:00 [facility]IC METABOLIC PANEL 2022-04-26 20:11:00 [facility] ([facility], K, CL, CO2, GLUCOSE, Medica l Branch BUN, CREATININE, CA) CBC WITH DIFF 2022-04-26 20:11:00 [facility] MRSA / MSSA SCREEN BY 2022-04-26 20:11:00 [facility] PCR, NARES [facility] POCT GLUCOSE (AUTOMATED) 2022-04-26 16:41:00 Gianluca Alba [facility] HEPATITIS B SURFACE 2022-04-26 15:50:00 Stanley Patiño [facility] ANTIBODY [facility] HEPATITIS B SURFACE 2022-04-26 15:50:00 JannetStanley rios [facility] ANTIGEN [facility] POCT GLUCOSE (AUTOMATED) 2022-04-26 11:51:00 Gianluca Alba [facility] BASIC METABOLIC PANEL 2022-04-26 09:41:00 Vee Sorto [facility] (NA, K, CL, CO2, GLUCOSE, Medica l Branch BUN, CREATININE, CA) POCT GLUCOSE(AGE >30DAYS) 2022-04-26 09:41:00 Vee Sorto U [facility] POCT GLUCOSE (AUTOMATED) 2022-04-26 09:37:00 Vee Sorot Un [facility] ACUTE CARE ARTERIAL BLOOD 2022-04-26 08:04:00 Vee Sorto U [facility] GAS [facility] POCT GLUCOSE (AUTOMATED) 2022-04-26 07:48:00 Vee Sorto Un [facility] POCT GLUCOSE(AGE >30DAYS) 2022-04-26 07:47:00 Vee Sorto U [facility] HB ECG ROUTINE & RHYTHM 2022-04-26 07:40:27 Vee Sorto [facility] XR CHEST 1 VW 2022-04-26 07:19:00 Vee Sorto [facility] LIPASE 2022-04-26 06:55:00 Vee Sorto [facility] TROPONIN I 2022-04-26 06:55:00 Vee Sorto [facility] COMP. METABOLIC PANEL 2022-04-26 06:55:00 Vee Sorto [facility] ([id number]) [facility] CBC WITH DIFF 2022-04-26 06:55:00 Vee Sorto [facility] GLYCOSYLATED HEMOGLOBIN 2022-04-26 06:55:00 Sampson Sparks [facility] (A1C) [facility] RAPID INFLUENZA A/B 2022-04-26 06:55:00 Vee Sorto [facility] N-TERMINAL PRO-BNP 2022-04-26 06:55:00 Vee Sorto [facility] COVID-19 (ID NOW RAPID 2022-04-26 06:55:00 Vee Sorto [facility] TESTING) Medical Branch LAB ONLY COVID 2022-04-26 06:55:00 Vee Sorto [facility] INTERPRETATION [facility] EKG-12 LEAD 2022-04-26 06:53:29 Vee Sorto [facility] Medical Branch EMERGENCY DEPARTMENT 2022-04-26 05:01:00 Doctor Filiberto, [facility] DOCUMENTS [facility] HOSPITAL ADMISSION 2022-04-26 05:01:00 [facility] CERVICAL SPINE WO 2020-05-20 18:51:43 Gina Cotton [facility] CONTRAST Medical Branch CT HEAD WO CONTRAST 2020-05-20 18:51:43 Gina Cotton [facility] CONSENT/REFUSAL FOR 2020-05-20 17:26:43 Doctor Filiberto [facility] DIAGNOSIS AND TREATMENT [facility] NOTICE OF PRIVACY 2020-05-20 17:26:25 Doctor Filiberto, [facility] PRACTICES [facility] Plan of Care Planned Activity Planned Date Details Comments Source Future Scheduled 2022-05-20 HEPATITIS B VACCINES Met [facility] Test 12:12:16 (1 of 3 - 3-dose series) [code = HEPATITIS B VACCINES (1 of 3 - 3-dose series)] Future Scheduled 2022-05-20 COVID-19 VACCINE (#1) [facility] Test 12:12:16 [code = COVID-19 VACCINE (#1)] Future Scheduled 2022-05-20 65+ [facility]OCOCCAL [facility] Test 12:12:16 VACCINE (1 - PCV) [code = 65+ PNEUMOCOCCAL VACCINE (1 - PCV)] Future Scheduled 2022-05-20 DIABETES: RETINAL EYE [facility] Test 12:12:16 EXAM [code = DIABETES: RETINAL EYE EXAM] Future Scheduled 2022-05-20 DIABETIC FOOT EXAM [facility] Test 12:12:16 [code = DIABETIC FOOT EXAM] Future Scheduled 2022-05-20 [facility] Test 12:12:16 [code = URINE MICROALBUMIN] Future Scheduled 2022-05-20 Hepatitis C screening Me [facility] Test 12:12:16 (procedure) [code = 491636599] Future Scheduled 2022-05-20 SHINGLES VACCINES (1 Met [facility] Test 12:12:16 of 2) [code = SHINGLES VACCINES (1 of 2)] Future Scheduled 2022-05-20 INFLUENZA VACCINE [facility] Test 12:12:16 [code = INFLUENZA VACCINE] Encounters Start End Encounter Admission Attending Care Care Encounter Source Date/Time Date/Time Type Type Clinicians Facility Department ID 2021-05-30 Emergency [facility] [id number] Univers 23:43:30 ity of [facility] 2022-05-04 2022-05-04 Transition TARA Armstrong [id number] Univers 00:00:00 00:00:00 of Care Rosaline JANEY [id number] it y of [id number] [id number] [facility] 403 Branch 2022-04-26 2022-05-02 Inpatient U SOBIA [facility] KIMBERLY [id number] Univers 01:43:00 15:39:00 STEVE ity of [facility] 2022-04-26 2022-05-02 Hospital Gianluca Alba [facility] [id number] Univers 01:43:00 15:39:00 Encounter Sampson Sparks [facility] [id number] ity of SobiaSteve CLEAR 4.2.7.2.686 [facility] [id number] [facility] 113 Branch (CLC) 2020-11-07 2020-11-07 Outpatient Ilan LIVINGSTON [facility] [id number] Univers 16:00:00 16:00:00 ZURDO ity of [facility] 2020-11-07 2020-11-07 Outpatient [facility] [id number] Univers 09:30:00 09:30:00 ity of [facility] 2020-10-16 2020-10-16 Outpatient [facility] [id number] Univers 09:30:00 09:30:00 ity of [facility] 2020-05-20 2020-05-20 [facility] [id number] Univers 12:30:00 14:38:00 Gina Mcbride [id number] [place] [id number] [facility] 084 Branch 2019-08-07 2019-08-07 Outpatient BALTAZAR [facility] [id number] [place] [address] 00:00:00 00:00:00 ARABELLA [address] Results Test Description Test Time Test Comments Results Result Comments Source POCT GLUCOSE (AUTOMATED) 2022-05-02 15:18:16 Test Item Value Reference Range Interpretation Comme nts POCT GLU (test code = 6383598166) 115 mg/dL 70-110 H Lab Interpretation (test code = 31763-8) Abnormal [facility] GLUCOSE (AUTOMATED)2022-05-02 01:07:47 Test Item Value Reference Range Interpretation Comments POCT GLU (test code = 9063159468) 159 mg/dL 70-110 H Lab Interpretation (test code = Abnormal 50991-8) [facility] GLUCOSE (AUTOMATED)2022-05-01 17:45:26 Test Item Value Reference Range Interpretation Comments POCT GLU (test code = 9126114485) 86 mg/dL 70-110 Lab Interpretation (test code = Normal 42834-2) [facility] GLUCOSE (AUTOMATED)2022-05-01 13:56:04 Test Item Value Reference Range Interpretation Comments POCT GLU (test code = 6808978882) 80 mg/dL 70-110 Lab Interpretation (test code = Normal 58297-2) [facility] METABOLIC PANEL (NA, K, CL, CO2, GLUCOSE, BUN, CREATININE, CA)2022-05-01 10:44:43 Test Item Value Reference Range Interpretation Comments NA (test code = 137 mmol/L 135-145 5319423702) K (test code = 5.0 mmol/L 3.5-5 5636070418) CL (test code = 101 mmol/L 98-108 2464404920) CO2 TOTAL (test code = 25 mmol/L 23-31 8317976437) AGAP (test code = 2-16 3991406955) BUN (test code = 44 mg/dL 7-23 H 6636352360) GLUCOSE (test code = 81 mg/dL 70-110 3368126639) CREATININE (test code = 7.45 mg/dL 0.6-1.25 H 7781766022) CALCIUM (test code = 9.4 mg/dL 8.6-10.6 9140068886) eGFR (test code = mL/min/1.73m2 2953496652) TAMARA (test code = TAMARA) Association of Glomerular Filtration Rate (GFR) and Staging of Kidney Disease* + --+ --+ ------+| GFR (mL/min/1.73 m2) ?| With Kidney Damage ?| ?Without Kidney Damage+ --------+ --------+ +| ?>90 ?| ?Stage one ?| ? Normal ?+ ---+ ---+ -------+| ?60-89 ?| ?Stage two ?| ? Decreased GFR ? + --+ --+ ------+| ?30-59 ?| ?Stage three ?| ? Stage three ? + --+ --+ ------+| ?15-29 ?| ?Stage four ? | ? Stage four ?+ ---+ ---+ -------+| ?<15 (or dialysis) ? ?| ?Stage five ? | ? Stage five ?+ ---+ ---+ -------+ *Each stage assumes the associated GFR level has been in effect for at least three months. ?Stages 1 to 5, with or without kidney disease, indicate chronic kidney disease. Notes: Determination of stages one and two (with eGFR >59mL/min/1.73 m2) requires estimation of kidney damage for at least three months as defined by structural or functional abnormalities of the kidney, manifested by either:Pathological abnormalities or Markers of kidney damage (including abnormalities in the composition of the blood or urine or abnormalities in imaging tests). Lab Interpretation Abnormal (test code = 40039-3) [facility] WITH [id number] 10:07:39 Test Item Value Reference Range Interpretation Comments WBC (test code = See_Comment [Automated 1630-2) message] The sy stem which generated this result transmitted reference range : 4.20 - 10.70 10*3/?L. The reference range was not used to interpret this result as normal/abnormal . RBC (test code = See_Comment L [Automated 571-7) message] The sy stem which generated this result transmitted reference range : 4.26 - 5.52 10*6/?L. The reference range was not used to interpret this result as normal/abnormal . HGB (test code = 8.6 g/dL 12.2-16.4 L 718-7) HCT (test code = 27.5 % 38.4-49.3 L 4544-3) MCV (test code = 93.5 fL 81.7-95.6 787-2) MCH (test code = 29.3 pg 26.1-32.7 785-6) MCHC (test code = 31.3 g/dL 31.2-35 786-4) RDW-SD (test code = 62.7 fL 38.5-51.6 H 03876-5) RDW-CV (test code = 18.4 % 12.1-15.4 H 788-0) PLT (test code = See_Comment L [Automated 777-3) message] The sy stem which generated this result transmitted reference range : 150 - 328 10*3/ ?L. The reference r carroll was not used to interpret this result as normal/abnormal . MPV (test code = 10.6 fL 9.8-13 77040-4) NRBC/100 WBC (test See_Comment [Automat ed code = 6106967075) message] The system which generated this result transmitted reference range : 0.0 - 10.0 /100 WBCs. The refer ence range was not u sed to interpret th is result as normal/abnormal . NRBC x10^3 (test code See_Comment [Auto mated = 2008630736) message] The s ystem which generated this result transmitted reference range : 10*3/?L. The reference range was not used to interpret this result as normal/abnormal . GRAN MAT (NEUT) % 56.5 % (test code = 770-8) IMM GRAN % (test code 0.30 % = 6853607173) LYMPH % (test code = 27.6 % 736-9) MONO % (test code = 9.1 % 5905-5) EOS % (test code = 5.9 % 713-8) BASO % (test code = 0.6 % 706-2) GRAN MAT x10^3(ANC) 4.92 10*3/uL 1.99-6.95 (test code = 8284293535) IMM GRAN x10^3 (test 0.03 10*3/uL 0-0.06 code = 6815713570) LYMPH x10^3 (test code 2.40 10*3/uL 1.09-3.23 = 731-0) MONO x10^3 (test code 0.79 10*3/uL 0.36-1.02 = 742-7) EOS x10^3 (test code = 0.51 10*3/uL 0.06-0.53 711-2) BASO x10^3 (test code 0.05 10*3/uL 0.01-0.09 = 704-7) Lab Interpretation Abnormal (test code = 21182-0) [facility] GLUCOSE (AUTOMATED)2022-05-01 02:56:18 Test Item Value Reference Range Interpretation Comments POCT GLU (test code = 1813575534) 95 mg/dL 70-110 Lab Interpretation (test code = Normal 53814-2) [facility] GLUCOSE (AUTOMATED)2022-04-29 21:27:56 Test Item Value Reference Range Interpretation Comments POCT GLU (test code = 5275288195) 98 mg/dL 70-110 Lab Interpretation (test code = Normal 34197-5) [facility] GLUCOSE (AUTOMATED)2022-04-29 16:43:50 Test Item Value Reference Range Interpretation Comments POCT GLU (test code = 3716036635) 94 mg/dL 70-110 Lab Interpretation (test code = Normal 52460-2) [facility] 13:33:55 Test Item Value Reference Range Interpretation Comments PHOSPHORUS (test code = 2367226725) 5.9 mg/dL 2.5-5 H Lab Interpretation (test code = Abnormal 34102-0) [facility] (NA, K, CL, CO2, GLUCOSE, BUN, CREATININE, CA)2022-04-29 13:33:55 Test Item Value Reference Range Interpretation Comments NA (test code = 137 mmol/L 135-145 1219186299) K (test code = 4.7 mmol/L 3.5-5 4030006312) CL (test code = 100 mmol/L 98-108 2017122422) CO2 TOTAL (test code = 28 mmol/L 23-31 3496025258) AGAP (test code = 2-16 3183107327) BUN (test code = 37 mg/dL 7-23 H 5767047531) GLUCOSE (test code = 87 mg/dL 70-110 4530534388) CREATININE (test code = 5.74 mg/dL 0.6-1.25 H 4028135089) CALCIUM (test code = 9.0 mg/dL 8.6-10.6 5667258753) eGFR (test code = mL/min/1.73m2 4272275834) TAMARA (test code = TAMARA) Association of Glomerular Filtration Rate (GFR) and Staging of Kidney Disease* + --+ --+ ------+| GFR (mL/min/1.73 m2) ?| With Kidney Damage ?| ?Without Kidney Damage+ --------+ --------+ +| ?>90 ?| ?Stage one ?| ? Normal ?+ ---+ ---+ -------+| ?60-89 ?| ?Stage two ?| ? Decreased GFR ? + --+ --+ ------+| ?30-59 ?| ?Stage three ?| ? Stage three ? + --+ --+ ------+| ?15-29 ?| ?Stage four ? | ? Stage four ?+ ---+ ---+ -------+| ?<15 (or dialysis) ? ?| ?Stage five ? | ? Stage five ?+ ---+ ---+ -------+ *Each stage assumes the associated GFR level has been in effect for at least three months. ?Stages 1 to 5, with or without kidney disease, indicate chronic kidney disease. Notes: Determination of stages one and two (with eGFR >59mL/min/1.73 m2) requires estimation of kidney damage for at least three months as defined by structural or functional abnormalities of the kidney, manifested by either:Pathological abnormalities or Markers of kidney damage (including abnormalities in the composition of the blood or urine or abnormalities in imaging tests). Lab Interpretation Abnormal (test code = 42131-4) [facility] 13:33:55 Test Item Value Reference Range Interpretation Comments MAGNESIUM (test code = 3368585808) 1.7 mg/dL 1.7-2.4 Lab Interpretation (test code = Normal 63739-0) [facility] [id number] 13:25:56 Test Item Value Reference Range Interpretation Comments WBC (test code = See_Comment [Automated 6690-2) message] The sy stem which generated this result transmitted reference range : 4.20 - 10.70 10*3/?L. The reference range was not used to interpret this result as normal/abnormal . RBC (test code = See_Comment L [Automated 789-8) message] The sy stem which generated this result transmitted reference range : 4.26 - 5.52 10*6/?L. The reference range was not used to interpret this result as normal/abnormal . HGB (test code = 8.5 g/dL 12.2-16.4 L 718-7) HCT (test code = 27.1 % 38.4-49.3 L 4544-3) MCV (test code = 94.4 fL 81.7-95.6 787-2) MCH (test code = 29.6 pg 26.1-32.7 785-6) MCHC (test code = 31.4 g/dL 31.2-35 786-4) RDW-SD (test code = 63.2 fL 38.5-51.6 H 54924-1) RDW-CV (test code = 18.7 % 12.1-15.4 H 788-0) PLT (test code = See_Comment L [Automated 777-3) message] The sy stem which generated this result transmitted reference range : 150 - 328 10*3/ ?L. The reference r carroll was not used to interpret this result as normal/abnormal . MPV (test code = 11.2 fL 9.8-13 61485-4) NRBC/100 WBC (test See_Comment [Automat ed code = 1054922517) message] The system which generated this result transmitted reference range : 0.0 - 10.0 /100 WBCs. The refer ence range was not u sed to interpret th is result as normal/abnormal . NRBC x10^3 (test code See_Comment [Auto mated = 9906562298) message] The s ystem which generated this result transmitted reference range : 10*3/?L. The reference range was not used to interpret this result as normal/abnormal . GRAN MAT (NEUT) % 59.0 % (test code = 770-8) IMM GRAN % (test code 0.50 % = 0341722105) LYMPH % (test code = 25.3 % 736-9) MONO % (test code = 9.1 % 5905-5) EOS % (test code = 5.6 % 713-8) BASO % (test code = 0.5 % 706-2) GRAN MAT x10^3(ANC) 4.29 10*3/uL 1.99-6.95 (test code = 8757144294) IMM GRAN x10^3 (test 0.04 10*3/uL 0-0.06 code = 8091388056) LYMPH x10^3 (test code 1.84 10*3/uL 1.09-3.23 = 731-0) MONO x10^3 (test code 0.66 10*3/uL 0.36-1.02 = 742-7) EOS x10^3 (test code = 0.41 10*3/uL 0.06-0.53 711-2) BASO x10^3 (test code 0.04 10*3/uL 0.01-0.09 = 704-7) Lab Interpretation Abnormal (test code = 63054-7) [facility] GLUCOSE (AUTOMATED)2022-04-29 13:08:57 Test Item Value Reference Range Interpretation Comments POCT GLU (test code = 2596822577) 83 mg/dL 70-110 Lab Interpretation (test code = Normal 75086-7) [facility] GLUCOSE (AUTOMATED)2022-04-29 00:57:51 Test Item Value Reference Range Interpretation Comments POCT GLU (test code = 116 mg/dL 70-110 H Notifi ed Provider [id number]) Lab Interpretation (test Abnormal code = 48608-8) [facility] GLUCOSE (AUTOMATED)2022-04-28 22:51:23 Test Item Value Reference Range Interpretation Comments POCT GLU (test code = 7655219882) 141 mg/dL 70-110 H Lab Interpretation (test code = Abnormal 68664-0) [facility] 21:22:21 Test Item Value Reference Range Interpretation Comments Height (test code = in 3490850419) Weight (test code = lbs 3848453714) Systolic BP (test code mmHg = 0777098543) Diastolic BP (test code mmHg = 6801200215) Heart Rate (test code = bpm 9719193008) BSA (test code = 2.04 m2 4700721180) Ao root diam (test code 3.50 cm = 2849150419) Aortic root (test code 3.5 cm = 4817974955) Ao root annulus (test 3.5 cm code = 2430445594) LA size (test code = 3.9 cm 3757847326) LVOT diameter (test 1.99 cm code = 8191131661) LVOT area (test code = 3.10 cm2 9255393518) LVIDD (test code = 5.50 cm 9745501123) Left Ventricular End 149.2 mL Diastolic Volume by Teichholz Method (test code = 5726196) IVS (test code = 0.86 cm 8227228755) Interventricular Septum 0.86 cm Diastolic Thickness by 2D (test code = 1452720) LVPWD (test code = 0.89 cm 4617102146) PW (test code = 0.89 cm 0.6-1.4 9895661131) EF(Teich) (test code = 50.30 % 9326975526) LVIDS (test code = 4.10 cm 8068192445) Left Ventricular End 74.2 mL Systolic Volume by Teichholz Method (test code = 6201173) FS (test code = 26 % 9739153977) EF - 2D (test code = 50.30 % 23778623) MV valve area p 1/2 4.10 cm2 method (test code = 1618083545) MV dec slope (test code 721.90 cm/s2 = 3775587353) MV P1/2t max devin (test 133.30 cm/s code = 3696743415) MV Peak E Devin (test 135.0 cm/s code = 7728697046) MV Peak A Devin (test 143.1 cm/s code = 9739150368) E/A ratio (test code = ratio 5764306906) MV Prop V (test code = 73.20 cm/s 5082921317) Tapse (test code = 3.2 cm 2628051118) MV E/e' septal (test 7.4 cm/s code = 3923765628) LVOT stroke volume 64.20 cm3 (test code = 6465202987) LVOT peak devin (test 95.1 cm/s code = 0756441266) LVOT mn grad (test code mmHg = 8916473443) AV LVOT peak gradient mmHg (test code = 3078133067) LVOT peak VTI (test 20.6 cm code = 8521283154) LV V1 mean (test code = 62.50 cm/s 4428291693) Aortic valve mean 263.9 cm/s velocity (test code = 3964592512) Ao peak devin (test code 370.1 cm/s = 0069903650) Ao VTI (test code = 89.5 cm 4939215901) AV area by cont VTI 0.7 cm2 (test code = 5020830067) AV area peak devin (test 0.8 cm2 code = 3276316286) Ao max PG (test code = 54.80 mm[Hg] 1933167668) AV peak gradient (test mmHg code = 7328294606) AV valve area (test 0.72 cm2 code = 9153379903) AV mean gradient (test mmHg code = 0709041087) AV regurgitation 548.9 ms pressure 1/2 time (test code = 0681157748) AI dec slope (test code 198.80 cm/s2 = 8233932286) AI max devin (test code = 372.70 cm/s 1128006452) AI max PG (test code = 55.50 mm[Hg] 3964506486) Radiology Study observation (narrative) (test code = 89931-1) TAMARA (test code = TAMARA) ?Right?Ventricle: Right ventricle is normal in size and function. Normal wall thickness. Normal systolic function. ?Pulmonic?Valve: Pulmonic valve is normal in structure and function. ?Left?Ventricle: Left ventricle is normal in size and function. Moderately increased wall thickness. There is mild concentric hypertrophy. ?Tricuspid?Valve: Tricuspid valve structure is normal. Moderate transvalvular regurgitation with a centrally directed jet. Left VentricleLeft ventricle is normal in size and function. Moderately increased wall thickness. There is mild concentric hypertrophy. Low normal systolic function with a visually estimated EF of 50 - 55%. There is pseudonormal diastolic dysfunction. Elevated left ventricular filling pressure.Right VentricleRight ventricle is normal in size and function. Normal wall thickness. Normal systolic function.Left AtriumLeft atrium is mildly dilated.Right AtriumRight atrium size is normal.IVC/SVCIVC diameter is less than or equal to 21 mm and decreases greater than 50% during inspiration; therefore the estimated right atrial pressure is normal (~0-5 mmHg). IVC normal in size and respiratory variation.Mitral ValveSeverely calcified posterior leaflet. Severe posterior mitral annular calcification. Moderate transvalvular regurgitation with a centrally directed jet. No stenosis.Tricuspid ValveTricuspid valve structure is normal. Moderate transvalvular regurgitation with a centrally directed jet.Aortic ValveConsistent with severe aortic stenosis. AV mean gradient is 32.1 mmHg. AV peak gradient is 54.8 mmHg. AV mean velocity is 263.9 cm/s.Pulmonic ValvePulmonic valve is normal in structure and function.PericardiumTr ivial pericardial effusion present.Study DetailsStudy quality was adequate. A complete echocardiogram was performed using 2D, color flow Doppler and spectral Doppler. [facility] GLUCOSE (AUTOMATED)2022-04-28 17:19:26 Test Item Value Reference Range Interpretation Comments POCT GLU (test code = 0767476788) 80 mg/dL 70-110 Lab Interpretation (test code = Normal 80027-0) [facility] GLUCOSE (AUTOMATED)2022-04-28 13:25:30 Test Item Value Reference Range Interpretation Comments POCT GLU (test code = 1894107257) 98 mg/dL 70-110 Lab Interpretation (test code = Normal 68574-8) [facility] METABOLIC PANEL (NA, K, CL, CO2, GLUCOSE, BUN, CREATININE, CA)2022-04-28 07:58:12 Test Item Value Reference Range Interpretation Comments NA (test code = 136 mmol/L 135-145 5060971117) K (test code = 5.5 mmol/L 3.5-5 H 2447031027) CL (test code = 99 mmol/L 98-108 9748821463) CO2 TOTAL (test code = 30 mmol/L 23-31 4645540454) AGAP (test code = 2-16 3418921346) BUN (test code = 43 mg/dL 7-23 H 4549730092) GLUCOSE (test code = 84 mg/dL 70-110 7859092661) CREATININE (test code = 6.28 mg/dL 0.6-1.25 H 7947170783) CALCIUM (test code = 9.1 mg/dL 8.6-10.6 7823928991) eGFR (test code = mL/min/1.73m2 7072312568) TAMARA (test code = TAMARA) Association of Glomerular Filtration Rate (GFR) and Staging of Kidney Disease* + --+ --+ ------+| GFR (mL/min/1.73 m2) ?| With Kidney Damage ?| ?Without Kidney Damage+ --------+ --------+ +| ?>90 ?| ?Stage one ?| ? Normal ?+ ---+ ---+ -------+| ?60-89 ?| ?Stage two ?| ? Decreased GFR ? + --+ --+ ------+| ?30-59 ?| ?Stage three ?| ? Stage three ? + --+ --+ ------+| ?15-29 ?| ?Stage four ? | ? Stage four ?+ ---+ ---+ -------+| ?<15 (or dialysis) ? ?| ?Stage five ? | ? Stage five ?+ ---+ ---+ -------+ *Each stage assumes the associated GFR level has been in effect for at least three months. ?Stages 1 to 5, with or without kidney disease, indicate chronic kidney disease. Notes: Determination of stages one and two (with eGFR >59mL/min/1.73 m2) requires estimation of kidney damage for at least three months as defined by structural or functional abnormalities of the kidney, manifested by either:Pathological abnormalities or Markers of kidney damage (including abnormalities in the composition of the blood or urine or abnormalities in imaging tests). Lab Interpretation Abnormal (test code = 67192-9) [facility] 07:54:09 Test Item Value Reference Range Interpretation Comments MAGNESIUM (test code = 9658489494) 1.8 mg/dL 1.7-2.4 Lab Interpretation (test code = Normal 09170-2) [facility] WITH [id number] 07:40:46 Test Item Value Reference Range Interpretation Comments WBC (test code = See_Comment [Automated 3990-2) message] The sy stem which generated this result transmitted reference range : 4.20 - 10.70 10*3/?L. The reference range was not used to interpret this result as normal/abnormal . RBC (test code = See_Comment L [Automated 789-8) message] The sy stem which generated this result transmitted reference range : 4.26 - 5.52 10*6/?L. The reference range was not used to interpret this result as normal/abnormal . HGB (test code = 7.2 g/dL 12.2-16.4 L 718-7) HCT (test code = 22.9 % 38.4-49.3 L 4544-3) MCV (test code = 93.9 fL 81.7-95.6 787-2) MCH (test code = 29.5 pg 26.1-32.7 785-6) MCHC (test code = 31.4 g/dL 31.2-35 786-4) RDW-SD (test code = 64.6 fL 38.5-51.6 H 39763-6) RDW-CV (test code = 19.4 % 12.1-15.4 H 788-0) PLT (test code = See_Comment L [Automated 777-3) message] The sy stem which generated this result transmitted reference range : 150 - 328 10*3/ ?L. The reference r carroll was not used to interpret this result as normal/abnormal . MPV (test code = 10.9 fL 9.8-13 58777-1) NRBC/100 WBC (test See_Comment [Automat ed code = 4728644440) message] The system which generated this result transmitted reference range : 0.0 - 10.0 /100 WBCs. The refer ence range was not u sed to interpret th is result as normal/abnormal . NRBC x10^3 (test code See_Comment [Auto mated = 1648760158) message] The s ystem which generated this result transmitted reference range : 10*3/?L. The reference range was not used to interpret this result as normal/abnormal . GRAN MAT (NEUT) % 47.9 % (test code = 770-8) IMM GRAN % (test code 0.10 % = 4464250269) LYMPH % (test code = 38.9 % 736-9) MONO % (test code = 8.6 % 5905-5) EOS % (test code = 3.8 % 713-8) BASO % (test code = 0.7 % 706-2) GRAN MAT x10^3(ANC) 3.38 10*3/uL 1.99-6.95 (test code = 7718197899) IMM GRAN x10^3 (test 0-0.06 code = 6902452548) LYMPH x10^3 (test code 2.75 10*3/uL 1.09-3.23 = 731-0) MONO x10^3 (test code 0.61 10*3/uL 0.36-1.02 = 742-7) EOS x10^3 (test code = 0.27 10*3/uL 0.06-0.53 711-2) BASO x10^3 (test code 0.05 10*3/uL 0.01-0.09 = 704-7) Lab Interpretation Abnormal (test code = 16934-7) [facility] METABOLIC PANEL (NA, K, CL, CO2, GLUCOSE, BUN, CREATININE, CA)2022-04-27 22:46:00 Test Item Value Reference Range Interpretation Comments NA (test code = 133 mmol/L 135-145 L 8972694032) K (test code = 5.3 mmol/L 3.5-5 H 7018228936) CL (test code = 97 mmol/L 98-108 L 9344635383) CO2 TOTAL (test code = 32 mmol/L 23-31 H 8972003157) AGAP (test code = 2-16 1307652973) BUN (test code = 36 mg/dL 7-23 H 2916805448) GLUCOSE (test code = 101 mg/dL 70-110 3500343535) CREATININE (test code = 5.26 mg/dL 0.6-1.25 H 9557150825) CALCIUM (test code = 9.4 mg/dL 8.6-10.6 3041491802) eGFR (test code = mL/min/1.73m2 6525775236) TAMARA (test code = TAMARA) Association of Glomerular Filtration Rate (GFR) and Staging of Kidney Disease* + --+ --+ ------+| GFR (mL/min/1.73 m2) ?| With Kidney Damage ?| ?Without Kidney Damage+ --------+ --------+ +| ?>90 ?| ?Stage one ?| ? Normal ?+ ---+ ---+ -------+| ?60-89 ?| ?Stage two ?| ? Decreased GFR ? + --+ --+ ------+| ?30-59 ?| ?Stage three ?| ? Stage three ? + --+ --+ ------+| ?15-29 ?| ?Stage four ? | ? Stage four ?+ ---+ ---+ -------+| ?<15 (or dialysis) ? ?| ?Stage five ? | ? Stage five ?+ ---+ ---+ -------+ *Each stage assumes the associated GFR level has been in effect for at least three months. ?Stages 1 to 5, with or without kidney disease, indicate chronic kidney disease. Notes: Determination of stages one and two (with eGFR >59mL/min/1.73 m2) requires estimation of kidney damage for at least three months as defined by structural or functional abnormalities of the kidney, manifested by either:Pathological abnormalities or Markers of kidney damage (including abnormalities in the composition of the blood or urine or abnormalities in imaging tests). Lab Interpretation Abnormal (test code = 10690-5) [facility] 22:46:00 Test Item Value Reference Range Interpretation Comments MAGNESIUM (test code = 3311039921) 1.7 mg/dL 1.7-2.4 Lab Interpretation (test code = Normal 01672-4) [facility] WITH [id number] 22:34:24 Test Item Value Reference Range Interpretation Comments WBC (test code = See_Comment [Automated 2435-2) message] The sy stem which generated this result transmitted reference range : 4.20 - 10.70 10*3/?L. The reference range was not used to interpret this result as normal/abnormal . RBC (test code = See_Comment L [Automated 712-4) message] The sy stem which generated this result transmitted reference range : 4.26 - 5.52 10*6/?L. The reference range was not used to interpret this result as normal/abnormal . HGB (test code = 7.6 g/dL 12.2-16.4 L 718-7) HCT (test code = 23.8 % 38.4-49.3 L 4544-3) MCV (test code = 92.6 fL 81.7-95.6 787-2) MCH (test code = 29.6 pg 26.1-32.7 785-6) MCHC (test code = 31.9 g/dL 31.2-35 786-4) RDW-SD (test code = 62.8 fL 38.5-51.6 H 14025-4) RDW-CV (test code = 19.3 % 12.1-15.4 H 788-0) PLT (test code = See_Comment L [Automated 777-3) message] The sy stem which generated this result transmitted reference range : 150 - 328 10*3/ ?L. The reference r carroll was not used to interpret this result as normal/abnormal . MPV (test code = 11.4 fL 9.8-13 42593-3) IPF % (test code = 4.9 % 1.2-10.7 Platelet count 6030447625) measured by fluorescence method. NRBC/100 WBC (test See_Comment [Automat ed code = 4528690498) message] The system which generated this result transmitted reference range : 0.0 - 10.0 /100 WBCs. The refer ence range was not u sed to interpret th is result as normal/abnormal . NRBC x10^3 (test code See_Comment [Auto mated = 3389974168) message] The s ystem which generated this result transmitted reference range : 10*3/?L. The reference range was not used to interpret this result as normal/abnormal . GRAN MAT (NEUT) % 55.3 % (test code = 770-8) IMM GRAN % (test code 0.20 % = 2836325859) LYMPH % (test code = 34.6 % 736-9) MONO % (test code = 6.7 % 5905-5) EOS % (test code = 2.6 % 713-8) BASO % (test code = 0.6 % 706-2) GRAN MAT x10^3(ANC) 4.63 10*3/uL 1.99-6.95 (test code = 0106621210) IMM GRAN x10^3 (test 0-0.06 code = 5996533765) LYMPH x10^3 (test code 2.90 10*3/uL 1.09-3.23 = 731-0) MONO x10^3 (test code 0.56 10*3/uL 0.36-1.02 = 742-7) EOS x10^3 (test code = 0.22 10*3/uL 0.06-0.53 711-2) BASO x10^3 (test code 0.05 10*3/uL 0.01-0.09 = 704-7) Lab Interpretation Abnormal (test code = 24675-0) [facility] Packed RBC (in units), 1 Units 2022-04-27 18:47:23 Test Item Value Reference Range Interpretation Comments Cross Match Result Compatible (test code = 4409) ISBT Blood Type Code (test code = 075174) Unit Blood Type (test B Pos code = 4410) Unit Number (test [id number] code = 4411) Blood Expiration Date & Time (test code = 523174) Status Information Issued (test code = 4412) Product Red Blood Cells Identification (test code = 4413) Product Code (test P6102M55 Performed at [facility] code = 4414) Laboratory Services - [facility] [address] [place], [place] [address]Mswv Free: [phone] A No. [id number] [facility]AB[facility] Confirmation (Lab Only)2022-04-27 15:48:19 Test Item Value Reference Range Interpretation Comments ABO & RH (test code B Positive Performe d at [facility] = 20) Laboratory Serv [facility] [address] [phone] 4Toll Free: [phone] 266CLIA No. [id number] [facility] HospitalType and Screen - ONCE [id number] 15:41:23 Test Item Value Reference Range Interpretation Comments ABO & RH (test code B Positive Performe d at [facility] = 20) Laboratory [facility] [address] [place], [place] [address]Toll Free: [phone] 266CLIA No. [id number] IAT (test code = Negative Performed a t [facility] 1185) Laboratory Serv [facility] - [facility] [address] [place], [place] [address] 4Toll Free: [phone] 266CLIA No. [id number] [facility] HospitalTHYROID STIMULATING [id number] 14:48:29 Test Item Value Reference Range Interpretation Comments TSH (test code = See_Comment Biotin has been 3072891303) reported to cau se a negative bias, interpret resul ts relative to pat dharmeshpily's use of biotin. [Automated mess age] The system [employer] generated this result transmitted ref erence range: 0.45 - 4 .70 mIU/L. The refe rence range was not u sed to interpret this result as normal/abnor mal. Lab Interpretation (test Normal code = 41982-9) [facility] (NA, K, CL, CO2, GLUCOSE, BUN, CREATININE, CA)2022-04-27 12:01:02 Test Item Value Reference Range Interpretation Comments NA (test code = 138 mmol/L 135-145 8129314790) K (test code = 7.1 mmol/L 3.5-5 HH 6867663154) CL (test code = 100 mmol/L 98-108 4530091055) CO2 TOTAL (test code = 31 mmol/L 23-31 2574833370) AGAP (test code = 2-16 9294389221) BUN (test code = 72 mg/dL 7-23 H 1259469792) GLUCOSE (test code = 90 mg/dL 70-110 1721295776) CREATININE (test code = 8.33 mg/dL 0.6-1.25 H 7936396003) CALCIUM (test code = 9.2 mg/dL 8.6-10.6 4236975611) eGFR (test code = mL/min/1.73m2 5049455549) TAMARA (test code = TAMARA) Association of Glomerular Filtration Rate (GFR) and Staging of Kidney Disease* + --+ --+ ------+| GFR (mL/min/1.73 m2) ?| With Kidney Damage ?| ?Without Kidney Damage+ --------+ --------+ +| ?>90 ?| ?Stage one ?| ? Normal ?+ ---+ ---+ -------+| ?60-89 ?| ?Stage two ?| ? Decreased GFR ? + --+ --+ ------+| ?30-59 ?| ?Stage three ?| ? Stage three ? + --+ --+ ------+| ?15-29 ?| ?Stage four ? | ? Stage four ?+ ---+ ---+ -------+| ?<15 (or dialysis) ? ?| ?Stage five ? | ? Stage five ?+ ---+ ---+ -------+ *Each stage assumes the associated GFR level has been in effect for at least three months. ?Stages 1 to 5, with or without kidney disease, indicate chronic kidney disease. Notes: Determination of stages one and two (with eGFR >59mL/min/1.73 m2) requires estimation of kidney damage for at least three months as defined by structural or functional abnormalities of the kidney, manifested by either:Pathological abnormalities or Markers of kidney damage (including abnormalities in the composition of the blood or urine or abnormalities in imaging tests). Lab Interpretation Abnormal (test code = 15429-1) [facility]2022-[facility]-26 11:58:34 Test Item Value Reference Range Interpretation Comments PHOSPHORUS (test code = 4853137915) 6.9 mg/dL 2.5-5 H Lab Interpretation (test code = Abnormal 83395-2) [facility]2022-[facility]-26 11:58:34 Test Item Value Reference Range Interpretation Comments MAGNESIUM (test code = 0885313964) 1.8 mg/dL 1.7-2.4 Lab Interpretation (test code = Normal 87982-0) [facility] WITH [id number] 11:31:33 Test Item Value Reference Range Interpretation Comments WBC (test code = See_Comment [Automated 8790-2) message] The sy stem which generated this result transmitted reference range : 4.20 - 10.70 10*3/?L. The reference range was not used to interpret this result as normal/abnormal . RBC (test code = See_Comment L [Automated 259-8) message] The sy stem which generated this result transmitted reference range : 4.26 - 5.52 10*6/?L. The reference range was not used to interpret this result as normal/abnormal . HGB (test code = 6.6 g/dL 12.2-16.4 L 718-7) HCT (test code = 20.9 % 38.4-49.3 L 4544-3) MCV (test code = 95.0 fL 81.7-95.6 787-2) MCH (test code = 30.0 pg 26.1-32.7 785-6) MCHC (test code = 31.6 g/dL 31.2-35 786-4) RDW-SD (test code = 64.8 fL 38.5-51.6 H 53964-0) RDW-CV (test code = 18.7 % 12.1-15.4 H 788-0) PLT (test code = See_Comment L [Automated 777-3) message] The sy stem which generated this result transmitted reference range : 150 - 328 10*3/ ?L. The reference r carroll was not used to interpret this result as normal/abnormal . MPV (test code = 11.2 fL 9.8-13 88557-7) NRBC/100 WBC (test See_Comment [Automat ed code = 1416106786) message] The system which generated this result transmitted reference range : 0.0 - 10.0 /100 WBCs. The refer ence range was not u sed to interpret th is result as normal/abnormal . NRBC x10^3 (test code See_Comment [Auto mated = 6612758640) message] The s ystem which generated this result transmitted reference range : 10*3/?L. The reference range was not used to interpret this result as normal/abnormal . GRAN MAT (NEUT) % 69.8 % (test code = 770-8) IMM GRAN % (test code 0.10 % = 9156789936) LYMPH % (test code = 21.4 % 736-9) MONO % (test code = 6.4 % 5905-5) EOS % (test code = 1.9 % 713-8) BASO % (test code = 0.4 % 706-2) GRAN MAT x10^3(ANC) 4.90 10*3/uL 1.99-6.95 (test code = 8284527224) IMM GRAN x10^3 (test 0-0.06 code = 8343459528) LYMPH x10^3 (test code 1.50 10*3/uL 1.09-3.23 = 731-0) MONO x10^3 (test code 0.45 10*3/uL 0.36-1.02 = 742-7) EOS x10^3 (test code = 0.13 10*3/uL 0.06-0.53 711-2) BASO x10^3 (test code 0.03 10*3/uL 0.01-0.09 = 704-7) Lab Interpretation Abnormal (test code = 48024-9) [facility])2022-04-27 09:30:35 Test Item Value Reference Range Interpretation Comments POCT GLU (test code = 4146703083) 107 mg/dL 70-110 Lab Interpretation (test code = Normal 53593-4) [facility] METABOLIC PANEL (NA, K, CL, CO2, GLUCOSE, BUN, CREATININE, CA)2022-04-27 06:16:51 Test Item Value Reference Range Interpretation Comments NA (test code = 137 mmol/L 135-145 5019571010) K (test code = 6.7 mmol/L 3.5-5 HH 7379409846) CL (test code = 99 mmol/L 98-108 2384775470) CO2 TOTAL (test code = 29 mmol/L 23-31 2941897734) AGAP (test code = 2-16 4229571470) BUN (test code = 67 mg/dL 7-23 H 1096200535) GLUCOSE (test code = 75 mg/dL 70-110 9518492221) CREATININE (test code = 8.04 mg/dL 0.6-1.25 H 7516407557) CALCIUM (test code = 9.2 mg/dL 8.6-10.6 9540373018) eGFR (test code = mL/min/1.73m2 4135154543) TAMARA (test code = TAMARA) Association of Glomerular Filtration Rate (GFR) and Staging of Kidney Disease* + --+ --+ ------+| GFR (mL/min/1.73 m2) ?| With Kidney Damage ?| ?Without Kidney Damage+ --------+ --------+ +| ?>90 ?| ?Stage one ?| ? Normal ?+ ---+ ---+ -------+| ?60-89 ?| ?Stage two ?| ? Decreased GFR ? + --+ --+ ------+| ?30-59 ?| ?Stage three ?| ? Stage three ? + --+ --+ ------+| ?15-29 ?| ?Stage four ? | ? Stage four ?+ ---+ ---+ -------+| ?<15 (or dialysis) ? ?| ?Stage five ? | ? Stage five ?+ ---+ ---+ -------+ *Each stage assumes the associated GFR level has been in effect for at least three months. ?Stages 1 to 5, with or without kidney disease, indicate chronic kidney disease. Notes: Determination of stages one and two (with eGFR >59mL/min/1.73 m2) requires estimation of kidney damage for at least three months as defined by structural or functional abnormalities of the kidney, manifested by either:Pathological abnormalities or Markers of kidney damage (including abnormalities in the composition of the blood or urine or abnormalities in imaging tests). Lab Interpretation Abnormal (test code = 92264-1) [facility] 06:13:15 Test Item Value Reference Range Interpretation Comments MAGNESIUM (test code = 7714886758) 1.7 mg/dL 1.7-2.4 Lab Interpretation (test code = Normal 22132-8) [facility]2022[facility] 06:13:15 Test Item Value Reference Range Interpretation Comments PHOSPHORUS (test code = 5395389094) 6.8 mg/dL 2.5-5 H Lab Interpretation (test code = Abnormal 40120-3) [facility]CB WITH [id number] 05:45:33 Test Item Value Reference Range Interpretation Comments WBC (test code = See_Comment [Automated 9290-2) message] The sy stem which generated this result transmitted reference range : 4.20 - 10.70 10*3/?L. The reference range was not used to interpret this result as normal/abnormal . RBC (test code = See_Comment L [Automated 599-8) message] The sy stem which generated this result transmitted reference range : 4.26 - 5.52 10*6/?L. The reference range was not used to interpret this result as normal/abnormal . HGB (test code = 6.5 g/dL 12.2-16.4 L 718-7) HCT (test code = 20.8 % 38.4-49.3 L 4544-3) MCV (test code = 95.4 fL 81.7-95.6 787-2) MCH (test code = 29.8 pg 26.1-32.7 785-6) MCHC (test code = 31.3 g/dL 31.2-35 786-4) RDW-SD (test code = 64.2 fL 38.5-51.6 H 04332-5) RDW-CV (test code = 18.6 % 12.1-15.4 H 788-0) PLT (test code = See_Comment L [Automated 777-3) message] The sy stem which generated this result transmitted reference range : 150 - 328 10*3/ ?L. The reference r carroll was not used to interpret this result as normal/abnormal . MPV (test code = 11.5 fL 9.8-13 50299-8) NRBC/100 WBC (test See_Comment [Automat ed code = 6546536412) message] The system which generated this result transmitted reference range : 0.0 - 10.0 /100 WBCs. The refer ence range was not u sed to interpret th is result as normal/abnormal . NRBC x10^3 (test code See_Comment [Auto mated = 2515154708) message] The s ystem which generated this result transmitted reference range : 10*3/?L. The reference range was not used to interpret this result as normal/abnormal . GRAN MAT (NEUT) % 70.2 % (test code = 770-8) IMM GRAN % (test code 0.30 % = 5882638983) LYMPH % (test code = 21.2 % 736-9) MONO % (test code = 6.2 % 5905-5) EOS % (test code = 1.6 % 713-8) BASO % (test code = 0.5 % 706-2) GRAN MAT x10^3(ANC) 5.18 10*3/uL 1.99-6.95 (test code = 1620078709) IMM GRAN x10^3 (test 0-0.06 code = 2867363343) LYMPH x10^3 (test code 1.57 10*3/uL 1.09-3.23 = 731-0) MONO x10^3 (test code 0.46 10*3/uL 0.36-1.02 = 742-7) EOS x10^3 (test code = 0.12 10*3/uL 0.06-0.53 711-2) BASO x10^3 (test code 0.04 10*3/uL 0.01-0.09 = 704-7) Lab Interpretation Abnormal (test code = 47676-3) [facility] GLUCOSE (AUTOMATED)2022-04-27 03:50:48 Test Item Value Reference Range Interpretation Comments POCT GLU (test code = 2919937625) 85 mg/dL 70-110 Lab Interpretation (test code = Normal 63387-9) [facility] GLUCOSE (AUTOMATED)2022-04-26 23:31:15 Test Item Value Reference Range Interpretation Comments POCT GLU (test code = 9906682489) 78 mg/dL 70-110 Lab Interpretation (test code = Normal 44013-0) [facility] GLUCOSE (AUTOMATED)2022-04-26 23:18:19 Test Item Value Reference Range Interpretation Comments POCT GLU (test code = 3748816282) 64 mg/dL 70-110 L Lab Interpretation (test code = Abnormal 09491-9) [facility] GLUCOSE (AUTOMATED)2022-04-26 23:00:59 Test Item Value Reference Range Interpretation Comments POCT GLU (test code = 8057326683) 57 mg/dL 70-110 L Lab Interpretation (test code = Abnormal 86813-5) [facility] GLUCOSE (AUTOMATED)2022-04-26 22:37:20 Test Item Value Reference Range Interpretation Comments POCT GLU (test code = 53 mg/dL 70-110 L Notifi ed Provider [id number]) Lab Interpretation (test Abnormal code = 61666-7) [facility]22-04-26 21:37:24 Test Item Value Reference Range Interpretation Comments HGB A1C (test code = 5.2 % 4-5.7 4548-4) TAMARA (test code = TAMARA) Reference RangesNormal: <5.7%Prediabetes: 5.7 - 6.4%Diabetes: > 6.5% Lab Interpretation (test Normal code = 78612-4) [facility]Ab)2022-04-26 21:21:39 Test Item Value Reference Range Interpretation Comments HBsAB (test code = Indeterminate 1761041440) HBsAb mIU/mL Semi-Quantitative (test code = 8820546209) TAMARA (test code = Unable to determine if TAMARA) antibody to Hepatitis B Surface Antigen is present at levels consistent with immunity. ?Patient's immune status should be assessed with other clinical information and/or retesting in 4-6 weeks as clinically indicated. ?If any questions, please contact Clinical Chemistry Director information assistant at .Unable to determine if antibody to Hepatitis B Surface Antigen is present at levels consistent with immunity. ?Patient's immune status should be assessed with other clinical information and/or retesting in 4-6 weeks as clinically indicated. ?If any questions, please contact Clinical Chemistry Director information assistant at .Interpretati on: ?Hepatitis B Surface Antibody ? Negative - Patient is considered to be not immune to infection with HBV. ? ? Positive - Anti-HBs detected at greater than or equal to 12 mIU/mL. ?Patient is considered to be immune to infection with HBV. ? [facility] METABOLIC PANEL (NA, K, CL, CO2, GLUCOSE, BUN, CREATININE, CA)2022-04-26 20:31:55 Test Item Value Reference Range Interpretation Comments NA (test code = 139 mmol/L 135-145 8672015630) K (test code = 5.7 mmol/L 3.5-5 H 3015229707) CL (test code = 101 mmol/L 98-108 3625969096) CO2 TOTAL (test code = 25 mmol/L 23-31 6445337957) AGAP (test code = 2-16 5377646568) BUN (test code = 58 mg/dL 7-23 H 6098081616) GLUCOSE (test code = 58 mg/dL 70-110 L 1097493007) CREATININE (test code = 7.22 mg/dL 0.6-1.25 H 7631496693) CALCIUM (test code = 9.4 mg/dL 8.6-10.6 5855004677) eGFR (test code = mL/min/1.73m2 6421295815) TAMARA (test code = TAMARA) Association of Glomerular Filtration Rate (GFR) and Staging of Kidney Disease* + --+ --+ ------+| GFR (mL/min/1.73 m2) ?| With Kidney Damage ?| ?Without Kidney Damage+ --------+ --------+ +| ?>90 ?| ?Stage one ?| ? Normal ?+ ---+ ---+ -------+| ?60-89 ?| ?Stage two ?| ? Decreased GFR ? + --+ --+ ------+| ?30-59 ?| ?Stage three ?| ? Stage three ? + --+ --+ ------+| ?15-29 ?| ?Stage four ? | ? Stage four ?+ ---+ ---+ -------+| ?<15 (or dialysis) ? ?| ?Stage five ? | ? Stage five ?+ ---+ ---+ -------+ *Each stage assumes the associated GFR level has been in effect for at least three months. ?Stages 1 to 5, with or without kidney disease, indicate chronic kidney disease. Notes: Determination of stages one and two (with eGFR >59mL/min/1.73 m2) requires estimation of kidney damage for at least three months as defined by structural or functional abnormalities of the kidney, manifested by either:Pathological abnormalities or Markers of kidney damage (including abnormalities in the composition of the blood or urine or abnormalities in imaging tests). Lab Interpretation Abnormal (test code = 70534-5) [facility] 20:31:55 Test Item Value Reference Range Interpretation Comments MAGNESIUM (test code = 8785738722) 1.8 mg/dL 1.7-2.4 Lab Interpretation (test code = Normal 45864-2) [facility]2022[facility] 20:31:55 Test Item Value Reference Range Interpretation Comments PHOSPHORUS (test code = 8186114845) 5.3 mg/dL 2.5-5 H Lab Interpretation (test code = Abnormal 63941-7) [facility]CB WITH [id number] 20:21:31 Test Item Value Reference Range Interpretation Comments WBC (test code = See_Comment [Automated 6690-2) message] The sy stem which generated this result transmitted reference range : 4.20 - 10.70 10*3/?L. The reference range was not used to interpret this result as normal/abnormal . RBC (test code = See_Comment L [Automated 789-8) message] The sy stem which generated this result transmitted reference range : 4.26 - 5.52 10*6/?L. The reference range was not used to interpret this result as normal/abnormal . HGB (test code = 7.3 g/dL 12.2-16.4 L 718-7) HCT (test code = 23.2 % 38.4-49.3 L 4544-3) MCV (test code = 95.1 fL 81.7-95.6 787-2) MCH (test code = 29.9 pg 26.1-32.7 785-6) MCHC (test code = 31.5 g/dL 31.2-35 786-4) RDW-SD (test code = 63.5 fL 38.5-51.6 H 39237-0) RDW-CV (test code = 18.6 % 12.1-15.4 H 788-0) PLT (test code = See_Comment L [Automated 777-3) message] The sy stem which generated this result transmitted reference range : 150 - 328 10*3/ ?L. The reference r carroll was not used to interpret this result as normal/abnormal . MPV (test code = 11.6 fL 9.8-13 05554-9) NRBC/100 WBC (test See_Comment [Automat ed code = 4533751511) message] The system which generated this result transmitted reference range : 0.0 - 10.0 /100 WBCs. The refer ence range was not u sed to interpret th is result as normal/abnormal . NRBC x10^3 (test code See_Comment [Auto mated = 0692164088) message] The s ystem which generated this result transmitted reference range : 10*3/?L. The reference range was not used to interpret this result as normal/abnormal . GRAN MAT (NEUT) % 82.0 % (test code = 770-8) IMM GRAN % (test code 0.10 % = 5014452107) LYMPH % (test code = 14.3 % 736-9) MONO % (test code = 3.2 % 5905-5) EOS % (test code = 0.1 % 713-8) BASO % (test code = 0.3 % 706-2) GRAN MAT x10^3(ANC) 7.37 10*3/uL 1.99-6.95 H (test code = 8925630959) IMM GRAN x10^3 (test 0-0.06 code = 2436070268) LYMPH x10^3 (test code 1.29 10*3/uL 1.09-3.23 = 731-0) MONO x10^3 (test code 0.29 10*3/uL 0.36-1.02 L = 742-7) EOS x10^3 (test code = 0.06-0.53 L 711-2) BASO x10^3 (test code 0.03 10*3/uL 0.01-0.09 = 704-7) Lab Interpretation Abnormal (test code = 28974-9) [facility] GLUCOSE (AUTOMATED)2022-04-26 16:53:05 Test Item Value Reference Range Interpretation Comments POCT GLU (test code = 1022245536) 102 mg/dL 70-110 Lab Interpretation (test code = Normal 42284-0) [facility] (HBsAg)2022-04-26 16:46:40 Test Item Value Reference Range Interpretation Comments HBsAg Semi-Quantitative (test code = Negative Negative 5195-3) [facility] GLUCOSE (AUTOMATED)2022-04-26 11:53:19 Test Item Value Reference Range Interpretation Comments POCT GLU (test code = 9797338083) 109 mg/dL 70-110 Lab Interpretation (test code = Normal 72804-4) [facility] (NA, K, CL, CO2, GLUCOSE, BUN, CREATININE, CA)2022-04-26 10:31:59 Test Item Value Reference Range Interpretation Comments NA (test code = 141 mmol/L 135-145 4206827561) K (test code = 7.4 mmol/L 3.5-5 HH 5421928125) CL (test code = 106 mmol/L 98-108 8775447432) CO2 TOTAL (test code = 24 mmol/L 23-31 3364455133) AGAP (test code = 2-16 4224860132) BUN (test code = 106 mg/dL 7-23 H 2031450765) GLUCOSE (test code = 60 mg/dL 70-110 L 7597330631) CREATININE (test code = 10.94 mg/dL 0.6-1.25 H 6605206856) CALCIUM (test code = 9.3 mg/dL 8.6-10.6 1462727842) eGFR (test code = mL/min/1.73m2 0220775793) TAMARA (test code = TAMARA) Association of Glomerular Filtration Rate (GFR) and Staging of Kidney Disease* + --+ --+ ------+| GFR (mL/min/1.73 m2) ?| With Kidney Damage ?| ?Without Kidney Damage+ --------+ --------+ +| ?>90 ?| ?Stage one ?| ? Normal ?+ ---+ ---+ -------+| ?60-89 ?| ?Stage two ?| ? Decreased GFR ? + --+ --+ ------+| ?30-59 ?| ?Stage three ?| ? Stage three ? + --+ --+ ------+| ?15-29 ?| ?Stage four ? | ? Stage four ?+ ---+ ---+ -------+| ?<15 (or dialysis) ? ?| ?Stage five ? | ? Stage five ?+ ---+ ---+ -------+ *Each stage assumes the associated GFR level has been in effect for at least three months. ?Stages 1 to 5, with or without kidney disease, indicate chronic kidney disease. Notes: Determination of stages one and two (with eGFR >59mL/min/1.73 m2) requires estimation of kidney damage for at least three months as defined by structural or functional abnormalities of the kidney, manifested by either:Pathological abnormalities or Markers of kidney damage (including abnormalities in the composition of the blood or urine or abnormalities in imaging tests). Lab Interpretation Abnormal (test code = 49883-3) [facility] GLUCOSE (AUTOMATED)2022-04-26 09:45:04 Test Item Value Reference Range Interpretation Comments POCT GLU (test code = 0687514386) 70 mg/dL 70-110 Lab Interpretation (test code = Normal 23069-5) [facility] >30DAYS)2022-04-26 09:41:00 Test Item Value Reference Range Interpretation Comments POCT Glu (age>30days) (test code = 70 mg/dL 70-110 3342) Lab Interpretation (test code = Normal 92499-6) [facility] HospitalTROP[facility] [id number] 08:01:27 Test Item Value Reference Interpretation Comments Range TROPONIN I (test 0.276 ng/mL See_Comment H [Automated code = 5379946928) message] The system which generated this result transmitted reference range : <=0.034. The reference range was not used to interpret this result as normal/abnormal . TAMARA (test code = Reference (Normal) TAMARA) Range (defined by the 99th percentile reference limit): <= 0.034 ng/mL Note: Cardiac troponin begins to rise 3-4 hours after the onset of ischemia. Repeat in 4-6 hours if the sample was drawn within 3-4 hours of the onset of the symptom and found normal. Diagnosis of myocardial injury is made with acute changes in cTn concentrations with at least one serial sample above the 99th percentile upper reference limit (URL), taken together with the patient's clinical presentation. Biotin has been reported to cause a negative bias, interpret results relative to patient's use of biotin. Lab Interpretation Abnormal (test code = 14325-4) [id number] 07:58:26 Test Item Value Reference Range Interpretation Comments NT-proBNP (test code 21499 pg/mL See_Comment H [Autom ated = 2849319222) message] The system which generated this result transmitted reference range : <=450. The reference range was not used to interpret this result as normal/abnormal . TAMARA (test code = TAMARA) Biotin has been reported to cause a negative bias, interpret results relative to patient's use of biotin. Lab Interpretation Abnormal (test code = 30356-7) [facility]COMP[facility]OLIC PAN[facility] (37778)2022-04-26 07:57:26 Test Item Value Reference Range Interpretation Comments NA (test code = 138 mmol/L 135-145 6538977397) K (test code = 8.3 mmol/L 3.5-5 HH 0355399073) CL (test code = 104 mmol/L 98-108 1914643506) CO2 TOTAL (test code = 24 mmol/L 23-31 7811168706) AGAP (test code = 2-16 6167023339) BUN (test code = 107 mg/dL 7-23 H 7261768960) GLUCOSE (test code = 100 mg/dL 70-110 2582227147) CREATININE (test code = 10.87 mg/dL 0.6-1.25 H 9236685701) TOTAL BILI (test code = 0.6 mg/dL 0.1-1.0 9911572210) CALCIUM (test code = 9.4 mg/dL 8.6-10.6 0839837344) T PROTEIN (test code = 7.2 g/dL 6.3-8.2 2227370387) ALBUMIN (test code = 4.0 g/dL 3.5-5 0657955864) ALK PHOS (test code = 66 U/L 34-122 9750874688) ALTv (test code = 14 U/L 5-50 1742-6) AST(SGOT) (test code = 18 U/L 13-40 6579538608) eGFR (test code = mL/min/1.73m2 7421219189) TAMARA (test code = TAMARA) Association of Glomerular Filtration Rate (GFR) and Staging of Kidney Disease* + --+ --+ ------+| GFR (mL/min/1.73 m2) ?| With Kidney Damage ?| ?Without Kidney Damage+ --------+ --------+ +| ?>90 ?| ?Stage one ?| ? Normal ?+ ---+ ---+ -------+| ?60-89 ?| ?Stage two ?| ? Decreased GFR ? + --+ --+ ------+| ?30-59 ?| ?Stage three ?| ? Stage three ? + --+ --+ ------+| ?15-29 ?| ?Stage four ? | ? Stage four ?+ ---+ ---+ -------+| ?<15 (or dialysis) ? ?| ?Stage five ? | ? Stage five ?+ ---+ ---+ -------+ *Each stage assumes the associated GFR level has been in effect for at least three months. ?Stages 1 to 5, with or without kidney disease, indicate chronic kidney disease. Notes: Determination of stages one and two (with eGFR >59mL/min/1.73 m2) requires estimation of kidney damage for at least three months as defined by structural or functional abnormalities of the kidney, manifested by either:Pathological abnormalities or Markers of kidney damage (including abnormalities in the composition of the blood or urine or abnormalities in imaging tests). Lab Interpretation Abnormal (test code = 99362-7) [facility] GLUCOSE (AUTOMATED)2022-04-26 07:50:29 Test Item Value Reference Range Interpretation Comments POCT GLU (test code = 1500001220) 145 mg/dL 70-110 H Lab Interpretation (test code = Abnormal 68898-5) [facility] HospitalLIPASE, [id number] 07:49:24 Test Item Value Reference Range Interpretation Comments LIPASE (test code = 7111282600) 143 U/L 0-220 Lab Interpretation (test code = Normal 35635-8) [facility] GLUCOSE(AGE >30DAYS)2022-04-26 07:47:00 Test Item Value Reference Range Interpretation Comments POCT Glu (age>30days) (test code = 145 mg/dL 70-110 A 3342) Lab Interpretation (test code = Abnormal 87767-2) [facility] WITH [id number] 07:27:06 Test Item Value Reference Range Interpretation Comments WBC (test code = See_Comment [Automated 4390-2) message] The sy stem which generated this result transmitted reference range : 4.20 - 10.70 10*3/?L. The reference range was not used to interpret this result as normal/abnormal . RBC (test code = See_Comment L [Automated 009-8) message] The sy stem which generated this result transmitted reference range : 4.26 - 5.52 10*6/?L. The reference range was not used to interpret this result as normal/abnormal . HGB (test code = 7.3 g/dL 12.2-16.4 L 718-7) HCT (test code = 23.2 % 38.4-49.3 L 4544-3) MCV (test code = 95.5 fL 81.7-95.6 787-2) MCH (test code = 30.0 pg 26.1-32.7 785-6) MCHC (test code = 31.5 g/dL 31.2-35 786-4) RDW-SD (test code = 63.5 fL 38.5-51.6 H 67693-6) RDW-CV (test code = 18.7 % 12.1-15.4 H 788-0) PLT (test code = See_Comment L [Automated 777-3) message] The sy stem which generated this result transmitted reference range : 150 - 328 10*3/ ?L. The reference r carroll was not used to interpret this result as normal/abnormal . MPV (test code = 12.7 fL 9.8-13 00485-2) NRBC/100 WBC (test See_Comment [Automat ed code = 7477913400) message] The system which generated this result transmitted reference range : 0.0 - 10.0 /100 WBCs. The refer ence range was not u sed to interpret th is result as normal/abnormal . NRBC x10^3 (test code See_Comment [Auto mated = 4489455865) message] The s ystem which generated this result transmitted reference range : 10*3/?L. The reference range was not used to interpret this result as normal/abnormal . GRAN MAT (NEUT) % 67.2 % (test code = 770-8) IMM GRAN % (test code 0.50 % = 4080999041) LYMPH % (test code = 20.7 % 736-9) MONO % (test code = 6.0 % 5905-5) EOS % (test code = 5.1 % 713-8) BASO % (test code = 0.5 % 706-2) GRAN MAT x10^3(ANC) 5.93 10*3/uL 1.99-6.95 (test code = 4470714501) IMM GRAN x10^3 (test 0.04 10*3/uL 0-0.06 code = 6227339328) LYMPH x10^3 (test code 1.82 10*3/uL 1.09-3.23 = 731-0) MONO x10^3 (test code 0.53 10*3/uL 0.36-1.02 = 742-7) EOS x10^3 (test code = 0.45 10*3/uL 0.06-0.53 711-2) BASO x10^3 (test code 0.04 10*3/uL 0.01-0.09 = 704-7) Lab Interpretation Abnormal (test code = 12979-5) [facility]/O [id number] 19:03:28 Right posterior parietal scalp soft tissue swelling/edema withoutunderlying calvarial fracture or acute intracranial abnormality No acute cervical fracture or traumatic malalignment Incidentally notednonspecific enlargement of the right submandibulargland.CT HEAD WO CONTRAST, CT CERVICAL SPINE WO CONTRAST HISTORY: Male 74 years fall, elderly COMPARISON: MRI brain dated 06/27/2014 TECHNIQUE: RoutineCT head and CT cervical spine without contrast FINDINGS: A right parietal subgaleal fluid collectionwith overlying edema is noted. The ventricles and cerebral sulci are unchanged in caliber andconfiguration. Mild global volume loss is redemonstrated. No hydrocephalus,midline shift or pathological extra- axial fluid collection is present. Thebasal cisterns are [...] WO CONTRAST, CT CERVICAL SPINE WO CONTRASTHISTORY: Male74 years fall, elderly COMPARISON: MRI brain dated 06/27/2014TECHNIQUE: Routine CT head and CT cervical spine without contrastFINDINGS:A right parietal subgaleal fluid collection with overlying edema is noted.The ventricles and cerebral sulci are unchanged in caliber andconfiguration. Mild global volume loss is redemonstrated. No hydrocephalus,midline shift or pathological extra- axial fluid collection is present. Thebasal cisterns are unremarkable.No acute intracranial hemorrhage or mass effect is present. The wan-whitematter differentiation is preserved. 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 The mastoid air cellsandvisualized paranasal air sinuses are clear.CT cervical spine:Grade 1 anterolisthesis and C4 over C5 contributes to mild reversal of thenormal cervical lordosis. The vertebral bodies are normal in height and inotherwise normal alignment. Slight levocurvature is noted. No facetfracture or subluxationis present. 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.Nonspecific enlargement ofthe right submandibular gland is incidentallynoted.IMPRESSIONRight posterior parietal scalp soft tissue swelling/edema withoutunderlying calvarial fracture or acute intracranial abnormalityNo acute cervical fracture or traumatic malalignmentIncidentally noted nonspecific enlargement of the right subman dibulargland.[facility]/O Contrast 2020-05-20 19:03:28 Right posterior parietal scalp soft tissue swelling/edema withoutunderlying calvarial fracture or acute intracranial abnormality No acute cervical fracture or traumatic malalignment Incidentally notednonspecific enlargement of the right submandibulargland.CT HEAD WO CONTRAST, CT CERVICAL SPINE WO CONTRAST HISTORY: Male 74 years fall, elderly COMPARISON: MRI brain dated 06/27/2014 TECHNIQUE: RoutineCT head and CT cervical spine without contrast FINDINGS: A right parietal subgaleal fluid collectionwith overlying edema is noted. The ventricles and [...] WO CONTRAST, CT CERVICAL SPINE WO CONTRASTHISTORY: Male74 years fall, elderly COMPARISON: MRI brain dated [...] fusion of the C1 posterior arch is incidentallynoted.Nonspecific enlargement ofthe right submandibular gland is incidentallynoted.IMPRESSIONRight posterior parietal scalp soft tissue swelling/edema withoutunderlying calvarial fracture or acute intracranial abnormalityNo acute cervical fracture or traumatic malalignmentIncidentally noted nonspecific enlargement of the right submandibulargland.[facility]"
--- NOTE | 2022-05-20 13:21 | RAD REPORT ---
EXAM DESCRIPTION: CT - Head Brain Wo Cont - 05/20/2022 1:13 pm CLINICAL HISTORY: Syncope, simple, abnormal neuro exam Headache, drowsiness COMPARISON: Head Brain Wo Cont dated 08/06/2021 TECHNIQUE: All CT scans are performed using dose optimization technique as appropriate and may inclu de automated exposure control or mA/KV adjustment according to patient size. FINDINGS: No intracranial hemorrhage, hydrocephalus or extra-axial fluid collection.Mild generalized brain atrophy is present with mild periventricular and deep white matter chronic microvascular ische carlos changes.No areas of brain edema or evidence of midline shift. The paranasal sinuses and mastoids are clear. The calvarium is intact. Right vertebral artery is calc ified. IMPRESSION: No acute intracranial abnormality.
--- NOTE | 2022-05-20 13:23 | RAD REPORT ---
EXAM DESCRIPTION: RAD - Chest Single View - 05/20/2022 1:11 pm CLINICAL HISTORY: COUGH Chest pain. COMPARISON: Chest Single View dated 08/06/2021; Chest Single View dated 10/26/2019; Chest Pa And Lat (2 Views) dated 07/06/2019; Chest Single View dated 11/30/2018 FINDINGS: Portable technique limits examination quality. Mild bilateral pulmonary opacities are present likely representing pulmonary edema or pneumonia. The heart is moderately enlarged. No displaced fractures.
[2022-05-20] MEDS ORDERED: NA CHLORIDE 0.9% 1,000 ML ONE (13:43)
[2022-05-20 15:32] LABS: Absolute Lymphocytes (CBC) 1.1 K/uL (0.7-4.9); Hematocrit 31.6 % (39.6-49.0); MCV 93.8 fL (80-100); MPV 9.2 fL (7.6-11.3); RBC Red Blood Cell Count 3.37 M/uL (4.33-5.43)
[2022-05-20 15:46] LABS: Protime INR 1.1
[2022-05-20 15:50] LABS: Albumin 2.8 g/dL (3.4-5.0); Bilirubin Direct 0.1 mg/dL (0-0.2); Bilirubin Total 0.5 mg/dL (0.2-1.0); Protein, Total 8.4 g/dL (6.4-8.2); SARS-CoV-2 Antigen Rapid Res Positive (Negative); Troponin High Sensitivity 45.2 pg/mL (<58.9)
--- NOTE | 2022-05-20 16:39 | EDPHYS ---
Physician Documentation [facility] Name: Jozef Carbajal Age: 76 yrs Sex: Male : 1945 Arrival Date: 05/20/2022 Time: 12:26 Bed 25 Private MD: ED Physician Blaise Chung HPI: 05/20 16:30 This 76 yrs old Black Male presents to ER via EMS with complaints of Syncope. adelso 16:30 The patient has experienced near-syncope, almost passed out. Onset: The adelso symptoms/episode began/occurred just prior to arrival. Duration: This was a single episode, that lasted 25 second(s). Context: occurred dialysis. Associated injury: The patient did not suffer any apparent associated injury. Associated signs and symptoms: The patient has no apparent associated signs or symptoms. Current symptoms: Currently, the patient is not experiencing any symptoms. The patient has not experienced similar symptoms in the past. Historical: - Allergies: 12:31 No Known Allergies; ss - Home Meds: 12:31 Auryxia Oral [Active]; carvedilol 6.25 mg Oral tab [Active]; levothyroxine 50 mcg cap ss [Active]; - PMHx: 12:31 Anemia; Diabetes - NIDDM; Hypertension; Hypothyroidism; Lupus; Renal Disease; ss - Immunization history:: Adult Immunizations up to date. - Social history:: Smoking status: Patient denies any tobacco usage or history of. Patient/guardian denies using alcohol. - Family history:: not pertinent. ROS: 16:30 Constitutional: Negative for fever, chills, and weight loss, Eyes: Negative for injury, adelso pain, redness, and discharge, ENT: Negative for injury, pain, and discharge, Neck: Negative for injury, pain, and swelling, Cardiovascular: Negative for chest pain, palpitations, and edema, Respiratory: Negative for shortness of breath, cough, wheezing, and pleuritic chest pain, Back: Negative for injury and pain, : Negative for injury, bleeding, discharge, and swelling, MS/Extremity: Negative for injury and deformity, Skin: Negative for injury, rash, and discoloration, Neuro: Negative for headache, weakness, numbness, tingling, and seizure, Psych: Negative for depression, anxiety, suicide ideation, homicidal ideation, and hallucinations, Allergy/Immunology: Negative for hives, rash, and allergies, Endocrine: Negative for neck swelling, polydipsia, polyuria, polyphagia, and marked weight changes, Hematologic/Lymphatic: Negative for swollen nodes, abnormal bleeding, and unusual bruising. 16:30 Abdomen/GI: Positive for nausea and vomiting. Exam: 16:30 Constitutional: This is a well developed, well nourished patient who is awake, alert, adelso and in no acute distress. Head/Face: Normocephalic, atraumatic. Eyes: Pupils equal round and reactive to light, extra-ocular motions intact. Lids and lashes normal. Conjunctiva and sclera are non-icteric and not injected. Cornea within normal limits. Periorbital areas with no swelling, redness, or edema. ENT: Nares patent. No nasal discharge, no septal abnormalities noted. Tympanic membranes are normal and external auditory canals are clear. Oropharynx with no redness, swelling, or masses, exudates, or evidence of obstruction, uvula midline. Mucous membranes moist. Neck: Trachea midline, no thyromegaly or masses palpated, and no cervical lymphadenopathy. Supple, full range of motion without nuchal rigidity, or vertebral point tenderness. No Meningismus. Chest/axilla: Normal chest wall appearance and motion. Nontender with no deformity. No lesions are appreciated. Cardiovascular: Regular rate and rhythm with a normal S1 and S2. No gallops, murmurs, or rubs. Normal PMI, no JVD. No pulse deficits. Respiratory: Lungs have equal breath sounds bilaterally, clear to auscultation and percussion. No rales, rhonchi or wheezes noted. No increased work of breathing, no retractions or nasal flaring. Abdomen/GI: Soft, non-tender, with normal bowel sounds. No distension or tympany. No guarding or rebound. No evidence of tenderness throughout. Back: No spinal tenderness. No costovertebral tenderness. Full range of motion. Male : Normal genitalia with no discharge or lesions. Skin: Warm, dry with normal turgor. Normal color with no rashes, no lesions, and no evidence of cellulitis. MS/ Extremity: Pulses equal, no cyanosis. Neurovascular intact. Full, normal range of motion. Neuro: Awake and alert, GCS 15, oriented to person, place, time, and situation. Cranial nerves II-XII grossly intact. Motor strength 5/5 in all extremities. Sensory grossly intact. Cerebellar exam normal. Normal gait. Psych: Awake, alert, with orientation to person, place and time. Behavior, mood, and affect are within normal limits. 16:41 ECG was reviewed by the Attending Physician. adelso Vital Signs: 12:27 BP 112 / 59; Pulse 75; Resp 20; Temp 98.5(TE); Pulse Ox 99% on R/A; Weight 72.57 kg; ss Height 6 ft. 0 in. (182.88 cm); Pain 0/10; 13:30 BP 133 / 58; Pulse 74; Resp 18; Pulse Ox 96% on R/A; eh3 14:30 BP 125 / 62; Pulse 78; Resp 16; Pulse Ox 98% on R/A; eh3 15:30 BP 137 / 60; Pulse 84; Resp 22; Pulse Ox 97% on R/A; eh3 16:30 BP 120 / 84; Pulse 82; Resp 19; Pulse Ox 99% on R/A; eh3 17:30 BP 124 / 69; Pulse 80; Resp 20; Pulse Ox 99% on R/A; eh3 12:27 Body Mass Index 21.70 (72.57 kg, 182.88 cm) ss MDM: 12:48 Patient medically screened. adelso 16:39 Differential Diagnosis: cardiac arrhythmia, cerebrovascular accident, sepsis, vasovagal adelso episode. Data reviewed: vital signs, nurses notes, EMS record, lab test result(s), EKG, radiologic studies, CT scan, plain films. Data interpreted: piece maker: rate is 78 beats/min, rhythm is regular, Pulse oximetry: on room air is 98 %. Test interpretation: by ED physician or midlevel provider: ECG, plain radiologic studies. 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 05/20 12:50 Order name: Basic Metabolic Panel; Complete Time: 16:24 adelso 05/20 12:50 Order name: CBC with Diff; Complete Time: 16:24 adelso 05/20 12:50 Order name: LFT's; Complete Time: 16:24 adelso 05/20 12:50 Order name: Magnesium; Complete Time: 16:24 05/20 12:50 Order name: NT PRO-BNP; Complete Time: 16:24 05/20 12:50 Order name: PT-INR; Complete Time: 16:24 05/20 12:50 Order name: Troponin HS; Complete Time: 16:24 05/20 12:50 Order name: XRAY Chest (1 view); Complete Time: 16:24 05/20 12:50 Order name: SARS RAPID; Complete Time: 16:24 adelso 05/20 12:50 Order name: Lipase; Complete Time: 16:24 05/20 12:50 Order name: CT Head Brain wo Cont; Complete Time: 16:24 [facility] 05/20 12:50 Order name: EKG; Complete Time: 12:51 [facility] 05/20 12:50 Order name: Cardiac monitoring; Complete Time: 13:38 [facility] 05/20 12:50 Order name: EKG - Nurse/Tech; Complete Time: 13:38 [facility] 05/20 12:50 Order name: IV Saline Lock; Complete Time: 13:38 [facility] 05/20 12:50 Order name: Labs collected and sent; Complete Time: 13:38 [facility] 05/20 12:50 Order name: O2 Per Protocol; Complete Time: 13:38 [facility] 05/20 12:50 Order name: O2 Sat Monitoring; Complete Time: 13:38 [facility] EC:41 Rate is 79 beats/min. Rhythm is regular. QRS [place] is Normal. MS interval is normal. QRS adelso interval is normal. QT interval is normal. No Q waves. T waves are Normal. No ST changes noted. Clinical impression: Abnormal EKG without significant change and No evidence of ischemia. Interpreted by me. Reviewed by me. Administered Medications: 13:00 Drug: NS 0.9% 1000 ml Route: IV; Rate: 125 ml/hr; Site: right antecubital; 3 18:01 Follow up: IV Status: IV converted to saline lock; IV Intake: 400ml eh3 Point of Care Testing: Ranges: Critical Glucose Levels:Adult <50 mg/dl or >400 mg/dl <40 mg/dl or >180 mg/dl Disposition Summary: 05/20/22 16:38 Discharge Ordered Location: Home adelso Problem: new adelso Symptoms: have improved adelso Condition: Stable adelso Diagnosis - Syncope Near adelso - Vomiting adelso - End stage renal disease - on HD M,W, F adelso - SARS-associated coronavirus as the cause of diseases classified elsewhere adelso Followup: adelso - With: Private Physician - When: 2 - 3 days - Reason: Recheck today's complaints, Continuance of care, Re-evaluation by your physician Followup: adelso - With: Justin Vanessa MD - When: 1 - 2 days - Reason: Recheck today's complaints, Continuance of care, Re-evaluation by your physician Discharge Instructions: - Discharge Summary Sheet adelso - Near-Syncope adelso - Weakness adelso - Dialysis adelso - End-Stage Kidney Disease adelso - Hemodialysis adelso - Hemodialysis, Care After adelso - COVID-19 adelso - COVID-19: What Your Test Results Mean - [facility] adelso - COVID-19 Frequently Asked Questions adelso Forms: - Medication Reconciliation Form adelso - Thank You Letter adelso - Antibiotic Education adelso - Prescription Opioid Use [facility] Prescriptions: - Zofran 4 mg Oral Tablet - take 1 tablet by ORAL route every 12 hours As needed; 20 tablet; Refills: 0, adelso Product Selection Permitted Signatures: Dispatcher [employer] Blaise Turner MD MD cha Smirch, Shelby, RN RN ss Zoila Diaz RN RN eh3
--- NOTE | 2022-05-20 16:39 | ER ---
Nurse's Notes [facility] Name: Jozef Carbajal Age: 76 yrs Sex: Male : 1945 Arrival Date: 05/20/2022 Time: 12:26 Bed 25 Private MD: Diagnosis: Syncope Near;Vomiting;End stage renal disease-on HD M,W, F;SARS-associated coronavirus as the cause of diseases classified elsewhere Presentation: 05/20 12:27 Chief complaint: EMS states: toned out for syncopal episode after dialysis today. ss Coronavirus screen: Vaccine status: Patient reports receiving the 2nd dose of the covid vaccine. Ebola Screen: No symptoms or risks identified at this time. Initial Sepsis Screen: Does the patient meet any 2 criteria? No. Patient's initial sepsis screen is negative. Does the patient have a suspected source of infection? No. Patient's initial sepsis screen is negative. Risk Assessment: Do you want to hurt yourself or someone else? Patient reports no desire to harm self or others. Onset of symptoms was May 20, 2022. 12:27 Method Of Arrival: EMS: [facility] ss 12:27 Acuity: CARLOS MANUEL 3 ss Triage Assessment: 12:31 General: Appears in no apparent distress. comfortable, Behavior is calm, cooperative, ss appropriate for age. Pain: Denies pain. Neuro: Level of Consciousness is awake, alert, obeys commands, Oriented to person, place, time, situation, Reports a syncopal episode. Cardiovascular: Capillary refill < 3 seconds Patient's skin is warm and dry. Respiratory: Airway is patent Respiratory effort is even, unlabored. Historical: - Allergies: 12:31 No Known Allergies; ss - Home Meds: 12:31 Auryxia Oral [Active]; carvedilol 6.25 mg Oral tab [Active]; levothyroxine 50 mcg cap ss [Active]; - PMHx: 12:31 Anemia; Diabetes - NIDDM; Hypertension; Hypothyroidism; Lupus; Renal Disease; ss - Immunization history:: Adult Immunizations up to date. - Social history:: Smoking status: Patient denies any tobacco usage or history of. Patient/guardian denies using alcohol. - Family history:: not pertinent. Screenin:33 Abuse screen: Denies threats or abuse. Denies injuries from another. Nutritional ss screening: No deficits noted. Tuberculosis screening: No symptoms or risk factors identified. Fall Risk None identified. 13:00 The patient is alert, able to follow commands. The patient does not exhibit slurred or eh3 garbled speech The patient is not exhibiting difficulty speaking. The patient does not exhibit difficulty understanding words. The patient is able to swallow own secretions with no drooling or need for suction. Patient tolerated one teaspoon of water. No drooling, immediate coughing, gurgling, or clearing of the throat was noted. The patient tolerated 90mL of water. No drooling, immediate coughing, gurgling, or clearing of the throat was noted. The patient passed the bedside swallow screening. Oral medications may be given as ordered. Contact Physician for further diet orders. Provider notified of bedside swallow screening results: Blaise Chung MD. Assessment: 12:33 Reassessment: No changes from previously documented assessment. See triage assessment. ss Neuro: Level of Consciousness is awake, alert, obeys commands, Oriented to person, place, time, situation. Cardiovascular: Rhythm is sinus rhythm. 13:00 Reassessment: Patient and/or family updated on plan of care and expected duration. Pain eh3 level reassessed. Patient is alert, oriented x 3, equal unlabored respirations, skin warm/dry/pink. 14:30 Reassessment: Patient and/or family updated on plan of care and expected duration. Pain eh3 level reassessed. Patient is alert, oriented x 3, equal unlabored respirations, skin warm/dry/pink. 15:30 Reassessment: Patient and/or family updated on plan of care and expected duration. Pain eh3 level reassessed. Patient is alert, oriented x 3, equal unlabored respirations, skin warm/dry/pink. 16:30 Reassessment: Patient and/or family updated on plan of care and expected duration. Pain eh3 level reassessed. Patient is alert, oriented x 3, equal unlabored respirations, skin warm/dry/pink. 16:45 Reassessment: Called pt to let her know he is up for discharge. Pt stated she eh3 is on her way but will not be here for 35-40 minutes.. 17:30 Reassessment: Patient and/or family updated on plan of care and expected duration. Pain eh3 level reassessed. Patient is alert, oriented x 3, equal unlabored respirations, skin warm/dry/pink. Vital Signs: 12:27 BP 112 / 59; Pulse 75; Resp 20; Temp 98.5(TE); Pulse Ox 99% on R/A; Weight 72.57 kg; Height 6 ft. 0 in. (182.88 cm); Pain 0/10; 13:30 BP 133 / 58; Pulse 74; Resp 18; Pulse Ox 96% on R/A; eh3 14:30 BP 125 / 62; Pulse 78; Resp 16; Pulse Ox 98% on R/A; eh3 15:30 BP 137 / 60; Pulse 84; Resp 22; Pulse Ox 97% on R/A; eh3 16:30 BP 120 / 84; Pulse 82; Resp 19; Pulse Ox 99% on R/A; eh3 17:30 BP 124 / 69; Pulse 80; Resp 20; Pulse Ox 99% on R/A; eh3 12:27 Body Mass Index 21.70 (72.57 kg, 182.88 cm) ED Course: 12:26 Patient arrived in ED. 12:31 Triage completed. 12:31 Arm band placed on right wrist. 12:33 Patient has correct armband on for positive identification. Bed in low position. Call ss light in reach. Side rails up X2. Adult w/ patient. Client placed on continuous cardiac and pulse oximetry monitoring. NIBP monitoring applied. campus monitor on. Door closed. Noise minimized. Warm blanket given. 12:34 Maintain EMS IV. Dressing intact. Good blood return noted. Site clean \T\ dry. Gauge \T\ ss site: 20g RAC. 12:48 Blaise Chung MD is Attending Physician. [facility] 13:13 XRAY Chest (1 view) In Process Unspecified. EDMS 13:15 CT Head Brain wo Cont In Process Unspecified. EDMS 13:30 Diet: Patient given snack. Patient given water. Tolerated well. eh3 13:38 Zoila Diaz, VAMSHI is Primary Nurse. eh3 14:30 Diet: Patient given snack. Patient given water. Tolerated well. eh3 15:04 SARS RAPID Sent. eh3 16:35 Justin Vanessa MD is Referral Physician. adelso 16:42 EKG done, by ED staff, reviewed by Blaise Chung MD. em1 18:01 No provider procedures requiring assistance completed. IV discontinued, intact, eh3 bleeding controlled, No redness/swelling at site. Pressure dressing applied. Administered Medications: 13:00 Drug: NS 0.9% 1000 ml Route: IV; Rate: 125 ml/hr; Site: right antecubital; eh3 18:01 Follow up: IV Status: IV converted to saline lock; IV Intake: 400ml eh3 Medication: 18:01 VIS not applicable for this client. 3 Point of Care Testing: Ranges: Intake: 18:01 IV: 400ml; Total: 400ml. eh3 Outcome: 16:38 Discharge ordered by . adelso 18:01 Discharged to home via wheelchair, with significant other. 3 18:01 Condition: stable 18:01 Discharge instructions given to patient, family, Instructed on discharge instructions, follow up and referral plans. medication usage, Demonstrated understanding of instructions, follow-up care, medications, Prescriptions given X 1. 18:04 Patient left the ED. 3 Signatures: Dispatcher [employer] Blaise Turner MD MD cha Martinez, Eric em1 Arlene Espitia, VAMSHI RN Zoila Diaz RN RN eh3
[2022-05-20 18:20] VITALS: TEMP 98.5
[2022-05-20 18:25] VITALS: O2SAT 99
[2022-05-20 18:26] VITALS: BP 124/69
--- NOTE | 2022-05-21 16:15 | EKG ---
Test Date: 2022-05-20 Test Time: 16:35:10 Transportation Security Screener: FELIX MEASUREMENT RESULTS: Intervals: Rate: 79 CO: 216 QRSD: 98 QT: 394 QTc: 451 Norden: P: 68 CO: 216 QRS: -32 T: 95 INTERPRETIVE STATEMENTS: Sinus rhythm with 1st degree AV block Possible Left atrial enlargement Left axis deviation Abnormal QRS-T angle, consider primary T wave abnormality Abnormal ECG Compared to ECG 08/06/2021 10:13:47 T-wave abnormality now present Sinus arrhythmia no longer present Electronically Signed On 05-21-22 16:14:25 CDT by Shay Reddy
== END 2022-05-20 18:04 | disposition home or self-care (01) ==
LOC: ER 12:10
DX: R55 Syncope and collapse (principal); U07.1 COVID-19; R11.10 Vomiting, unspecified; E11.22 Type 2 diabetes mellitus with diabetic chronic kidney disease; I12.0 Hypertensive chronic kidney disease with stage 5 chronic kidney disease or end stage renal disease; N18.6 End stage renal disease; Z99.2 Dependence on renal dialysis
CPT/HCPCS: 96361; 93005; 85025; 80048; 36415; 83735; 85610; 80076; 84484; 83690; 83880; 70450; 71045; 96360; 99284; 87811; J7030

== ENCOUNTER 2022-06-16 12:00 | Day surgery (SDC) | payer OTHER ==
[~2022-06-16 12:00] MED LIST changes: +ATROPINE SULF 1 MG/10 ML SYR IV ONE; -EPOETIN ALFA-EPBX 10,000 UNIT/ML VIAL ONE; +FENTANYL CITR 100 MCG/2 ML ONE; +FLUMAZENIL 0.1 MG/ML (5 mL VIAL) IV ONE; +HYDRALAZINE HCL 20 MG/ML VIAL ONE; +LIDOCAINE VISCOUS 2% SOLN 15 ML UDC ONE; +METOPROLOL TARTRATE 5 MG/5 ML INJ IV ONE; +MIDAZOLAM HCL 2 MG/2 ML INJ ONE; +MIDAZOLAM HCL 5 ML ONE; +PHENOL 1.4% ORAL SPRAY 180ML ONE
[2022-06-16] MEDS ORDERED: NA CHLORIDE 0.9% 500 ML ONE (12:38)
--- NOTE | 2022-06-16 14:58 | TEE ---
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 NORMAL LEFT VENTRICULAR EJECTION FRACTION 55-60%. 2. NO VEGETATION IS SEEN 3. MODERATE TO SEVERE MITRAL REGURGITATION 4. CALCIFIED AORTIC VALVE WITH MODERATE AORTIC STENOSIS, AREA 1.5-1.6 CENTIMETERS SQUARED. TECHNOLOGIST: KENNETH MARTINEZ
--- NOTE | 2022-06-16 19:30 | OP ---
Date of Procedure: 06/16/2022 Surgeon: RUBEN LEARY Procedure Performed: Transesophageal echocardiogram. Indication: Mitral valve regurgitation. Procedure In Detail: After risks, benefits, and alternatives were explained, the patient agreed to t he procedure and signed informed consent. The patient was brought into the OR room and the throat wa s anesthetized using local lidocaine gel and then I gave him proper moderate sedation using fentanyl and Versed. Then, I took the probe down without difficulties. KARON was performed and then removed th e probe. The patient tolerated the procedure very well and sent to recovery in stable condition. Conclusion: 1.Successful transesophageal echocardiogram. 2.Severe mitral valve regurgitation. SR/MODL Voice ID: [id number] Report ID: [id number]
== END 2022-06-16 14:30 | disposition home or self-care (01) ==
LOC: EKG 12:00
PROVIDERS: ATTEND Internal Medicine
DX: I34.0 Nonrheumatic mitral (valve) insufficiency (principal); I35.0 Nonrheumatic aortic (valve) stenosis; I10 Essential (primary) hypertension; E11.9 Type 2 diabetes mellitus without complications; E78.5 Hyperlipidemia, unspecified; Z79.82 Long term (current) use of aspirin; Z79.899 Other long term (current) drug therapy
CPT/HCPCS: 93312; J2250 ×2; J3010; J7040; J0360; J0461

== ENCOUNTER 2022-10-14 09:16 | Inpatient (IN) | payer OTHER ==
--- OUTSIDE RECORDS SUMMARY | 2022-10-14 09:29 | XMS REPORT | Continuity of Care Document ---
:[address] [facility] t Address [address] [place] [address]. [address] [place] [address] Care Team Providers Name Role Phone Rasheeda POLLACK, Theodore Kirkland Primary Care Physician Rosaline Armstrong RN Attending Clinician Unavailable RANDEE STEVE Attending Clinician Unavailable Macario Diaz MD Attending Clinician Randee Steve MD Attending Clinician RIANNA GOMEZ Attending Clinician Unavailable Rianna Reyes Attending Clinician IVANIA MEHTA Attending Clinician Unavailable Ivania Mehta MD Attending Clinician Quyen Noel RN Attending Clinician CARLTON SCHNEIDER Attending Clinician Unavailable Darrel Trinh MD Attending Clinician Carlton Schneider MD Attending Clinician AALIYAH SORTO Attending Clinician Unavailable Aaliyah Sorto MD Attending Clinician STEVE RAMSAY Attending Clinician Unavailable Gianluca Alba MD Attending Clinician Sampson Sparks MD Attending Clinician TeqwimSteve lindsay DO Attending Clinician ZURDO LIVINGSTON Attending Clinician Unavailable Gina Cotton DO Attending Clinician ARABELLA LEDESMA Attending Clinician Unavailable RANDEE STEVE Admitting Clinician Unavailable Randee Steve MD Admitting Clinician RIANNA GOMEZ Admitting Clinician Unavailable IVANIA MEHTA Admitting Clinician Unavailable CARLTON SCHNEIDER Admitting Clinician Unavailable Carlton Schneider MD Admitting Clinician SAMPSON SPARKS Admitting Clinician Unavailable Sampson Sparks MD Admitting Clinician ARABELLA LEDESMA Admitting Clinician Unavailable Payers Payer Name Policy Type Policy Number Effective Date Expiration Date Jone hayward MEDICARE PART A [id number] 1996 \\T\\ B 00:00:00 [employer] INDEMNITY [id number] 2017 00:00:00 Problems Condition Condition Condition Status Onset Resolution Last Treating Co mments Source Name Details Category Date Date Treatment Clinician Date Right Right Disease Active 2022-0 Univers lower lower 3-10 ity of quadrant quadrant 00:00: [place] abdominal abdominal 00 Medi jimenez pain pain Branch FUO (fever FUO (fever Disease Active 2021-08 U nivers of unknown of unknown 2-12 it y of origin) origin) 00:00: [place] [facility] Aortic Aortic Disease Active 2021-0 Univers stenosis stenosis 9-30 ity of 00:00: [place] [facility] Bradycardi Bradycardi Disease Active 2021-0 U nivers a a 9-25 ity of 00:00: [place] [facility] ESRD ESRD Disease Active 2021-0 Univers needing needing 9-25 ity of dialysis dialysis 00:00: [place] [facility] 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 00:[place] diabetes diabetes 00 Med[place] mellitus mellitus Branch Renal Renal Disease Active Univers osteodystr osteodystr 03-29 it y of ophy ophy 00:00: Medical Branch Rheumatoid Rheumatoid Disease Active U nivers arthritis arthritis 03-29 ity of 00:00: Medical Branch 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 00:00[place] [facility] [place] Vitamin D Vitamin D Disease Active Uni vers deficiency deficiency 03-29 it y of , , 00:00: [place] unspecifie unspecifie 00 Me dical d d Branch Allergic Allergic Disease Active Unive rs rhinitis rhinitis 03-29 ity of due to due to 00:00: [place] pollen pollen 00 Medical Branch 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 Uni vers chronic chronic 03-29 ity of kidney kidney 00:00: [place] disease disease 00 Medical Branch Bilateral Bilateral Disease Active Uni vers knee pain knee pain 03-29 ity of 00:00: [place] 00 Medical Branch Chronic Chronic Disease Active 2019 Univers low back low back 8 ity of pain pain 00:00: Medical Branch Hyperkalem Hyperkalem Disease Active 2019 U nivers ia ia 03-29 ity of 00:00: Medical Branch Hypertensi Hypertensi Disease Active 2019 U nivers ve heart ve heart 03-29 ity of and and 00:00: [place] chronic chronic 00 Medical kidney kidney Branch disease disease stage 5 stage 5 Iron Iron Disease Active Univers deficiency deficiency 03-29 it y of anemia anemia 00:00: [place] 00 Medical Branch Lower Lower Disease Active Univers urinary urinary 03-29 ity of tract tract 00:00: [place] symptoms symptoms 00 Medica l due to due to Branch benign benign prostatic prostatic hyperplasi hyperplasi a a 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 ICD10 Diagnosis Term Layer Off Utility Lupus Lupus Disease Active 2013-08 Univers nephritis nephritis 08-27 ity of 00:00: [place] [facility] Fever Fever Disease Active 2013-08 Univers 08-27 ity of 00:00: [place] [facility] DM DM Disease Active 2013-08 Univers (diabetes (diabetes 08-27 ity of mellitus) mellitus) 00:00[place] HLD HLD Disease Active 2013-08 Univers (hyperlipi (hyperlipi 08-27 it y of demia) demia) 00:00: [place] [facility] Weakness Weakness Disease Active 2013-08 Unive rs 08-27 ity of 00:00: [place] [facility] Systemic Systemic Disease Active Last [...] Active Univers ALLERGIE Class ity of S [place] [facility] Family History Family Member Diagnosis Comments Start Date Stop Date Source Natural brother Lupus [facility] Natural brother [facility] Natural father Hypertension [facility] Natural sister No Known Problems Met [facility] sister Lupus [facility] Natural mother Diabetes [facility] Social History Social Habit Start Date Stop Date Quantity Comments Source History of tobacco Passive smoker Un iversity of use [place] [facility] History SDOH Social Unive rsity of Connections [facility] Med ical Together Branch History SDOH Social Unive rsity of Connections [facility] Medical Branch History SDOH Social Unive rsity of Connections [place] [facility] Membership Branch History SDOH Social Unive rsity of Connections [place] [facility] Meetings Branch Exposure to 2022-09-29 2022-10-09 Not sure University of SARS-CoV-2 (event) 00:00:00 06:46:00 [place] [facility] History SDOH 2022-07-14 2022-07-14 1 University o f Alcohol Frequency 00:00:00 00:00:00 [place] M edical Branch History SDOH 2022-07-14 2022-07-14 0 University o f Alcohol Std Drinks 00:00:00 00:00:00 [place] [facility] History SDOH 2022-07-14 2022-07-14 1 University o f Alcohol Binge 00:00:00 00:00:00 [place] Medic al Branch History SDOH Social 2022-07-14 2022-07-14 1 Unive rsity of Connections Phone 00:00:00 00:00:00 [place] M edical Branch History SDOH Social 2022-07-14 2022-07-14 3 Unive rsity of Connections Living 00:00:00 00:00:00 [place] [facility] History SDOH 2022-07-14 2022-07-14 0 University o f Physical Activity 00:00:00 00:00:00 [place] M edical DPW Branch History SDOH 2022-07-142022-07-14 0 University o f Physical Activity 00:00:00 00:00:00 [facility] edical MPS Branch History SDOH 2022-07-14 2022-07-14 5 University o f Financial 00:00:00 00:00:00 [place] [facility] History SDOH Food 2022-07-14 2022-07-14 1 Univers ity of Worry 00:00:00 00:00:00 [place] [facility] History SDOH Food 2022-07-14 2022-07-14 1 Univers ity of Scarcity 00:00:00 00:00:00 [place] [facility] History SDOH 2022-07-14 2022-07-14 2 University o f Transport Med 00:00:00 00:00:00 [place] Medic al [facility] History SDHI 2022-07-14 2022-07-14 2 University o f Transport Non-Med 00:00:00 00:00:00 [facility] edical Branch Tobacco use and 2022-07-13 2022-07-13 Smokeless Universit y of exposure 00:00:00 00:00:00 tobacco non-user [facility] dical Branch Education 2022-04-26 2022-04-26 21 University 00:00:00 00:00:[address] [facility] Alcohol intake 2019-08-08 2019-08-08 [facility] 00:00:[facility] 00:00:00 non-drinker of Hospital alcohol (finding) Sex Ass[birth year] At [birth year] [facility] 00:00[facility] 00[facility]00 Hospital Smoking Status Start Date Stop Date Source Never smoked tobacco [facility] Medications Ordered Filled Start Stop Current Ordering Indication Dosage Frequency Signature Comments Components Source Medication Medication Date Date Medication? Clinician (SIG) Name Name lidocaine 5 Yes [id number] 1{patch Apply 1 Univers % (700 3-13 105 } Patch to ity of mg/patch) 00:00: [place] patch 00 the Medical morning. Branch lidocaine 5 Yes [id number] 1{patch Apply 1 Univers % (700 3-13 105 } Patch to ity of mg/patch) 00:00: [place] in [place] patch 00 the Medical morning. Branch HYDROcodone 2022- Yes 1{tbl} 1 tablet, Univers -acetaminop 3-12 14 Oral, ity of hen (NORCO 16:58: 16:57 Q6HPRN, [place] 5) 5-325 mg 10 :10 Starting Medi jimenez tablet 1 on Sun Branch tablet 10/11/22 at 1158, Until 10/13/22 at 1157, Routine, Pain (scale 4-6), Pain (scale 7-10) atorvastati 2022-0 Yes [id number] 20mg Take 0.5 Univers n 40 mg 3-12 tablets by ity of tablet 15:14: mouth [place] [address] every Medical evening. Branch aspirin 81 2022-0 Yes 81mg Take 1 Unive rs mg chewable 3-12 tablet by ity of tablet 15:14: mouth in [place] [address] the Medical morning. Branch foLIC acid 2022-0 Yes 1mg Take 1 Unive rs 1 mg tablet 3-12 tablet by ity of 15:14: mouth in [place] [address] the Medical morning. Branch allopurinoL 2022-0 Yes 100mg Take 1 Uni vers 100 mg 3-12 tablet by ity of tablet 15:14: mouth in [place] [address] the Medical morning. Branch ferric 2022-0 Yes 210mg Take 210 Univer s citrate 3-12 mg by ity of (AURYXIA) 15:14: mouth 3 [place] 210 mg iron 33 (three) Medic al Tab times [place] daily. 2 tab 3x with meals 1 tab with a snack Cholestyram 2022-0 Yes 4g Take 1 Univ ers ine Light 4 3-12 Packet by ity of gram powder 15:14: mouth 3 [place] 33 (three) Medical times Branch daily as needed. levothyroxi 2022-0 Yes 50ug Take 1 Univ ers ne 50 mcg 3-12 tablet by ity o f tablet 15:14: mouth [place] 33 every Medical morning. Branch atorvastati 2022-0 Yes [id number] 20mg Take 0.5 Univers n 40 mg 3-12 tablets by ity of tablet 15:14: mouth [place] 33 every Medical evening. Branch aspirin 81 2022-0 Yes 81mg Take 1 Unive rs mg chewable 3-12 tablet by ity of tablet 15:14: mouth in [place] [address] the Medical morning. Branch foLIC acid 2022-0 Yes 1mg Take 1 Unive rs 1 mg tablet 3-12 tablet by ity of 15:14: mouth in [place] [address] the Medical morning. Branch allopurinoL 2022-0 Yes 100mg Take 1 Uni vers 100 mg 3-12 tablet by ity of tablet 15:14: mouth in [place] [address] the Medical morning. Branch ferric 2022-0 Yes 210mg Take 210 Univer s citrate 3-12 mg by ity of (AURYXIA) 15:14: mouth 3 [place] 210 mg iron 33 (three) Medic al Tab times Branch daily. 2 tab 3x with meals 1 tab with a snack Cholestyram 2022-0 Yes 4g Take 1 Univ ers ine Light 4 3-12 Packet by ity of gram powder 15:14: mouth 3 [place] 33 (three) Medical times Branch daily as needed. levothyroxi 2022-0 Yes 50ug Take 1 Univ ers ne 50 mcg 3-12 tablet by ity o f tablet 15:14: mouth [place] 33 every Medical morning. Branch amLODIPine 2022-0 3- No 5mg Take 0.5 Un mahsa (NORVASC) 10-1112 tablets by ity of 10 mg 13:40: 00:00 mouth in [place] tablet 16 :00 the Medical morning. Branch Take 1/2 tablet once a day doxazosin 4 2022-0 2022- No 2mg Take 0.5 U nivers mg tablet 10-11-12 tablets by ity of 13:40: 00:00 mouth [place] 16 :00 every Medical evening. Branch Take 1/2 tablet at bedtime benzonatate 2022-0 Yes 100mg 100 mg, Un mahsa (TESSALON -12 Oral, ity of MASOUD) 04:45: Q8HPRN, [place] capsule 100 33 Starting Medi jimenez mg on Sat Branch 10/10/22 at 2245, Until Discontinu ed, Routine, Cough codeine-gua 2022-0 2023- No 5mL 5 mL, Univ ers ifenesin 10-11-12 Oral, ity of (ROBITUSSIN 04:44: 18:32 Q6HPRN, [place] AC) 10-100 47 :07 Starting Medic al mg/5 mL on Sat Branch oral 10/10/22 at solution 5 2244, mL Until 10/11/22 at 1332, Routine, Cough benzonatate 2022-0 Yes 100mg 100 mg, Un mahsa (TESSALON 3-12 Oral, Q8H, ity of PERLES) 04:00: [place] dose [place] capsule 100 00 on Sat Medica l mg 10/10/22 at Branch 2200, Until Discontinu ed, Routine pantoprazol 0 Yes 20mg 20 mg, Univ ers e 3-12 Oral, BID, ity of (PROTONIX) 02:00: First dose [place] EC tablet 00 on [facility] Medical 20 mg 10/10/22 at Branch 2000, Until Discontinu ed, Routine mupirocin 2022- Yes Nasal, Unive rs (BACTROBAN 3-12 03-17 Q12H, 10 ity of NASAL OINT) 02:00: 00:59 doses, [place] 2 % nasal 00 :00 First dose Medi jimenez ointment on [facility] 10/10/22 at 1999, Last dose on [place] 10/15/22 at 0800, Routine epoetin 2022- No [id number] 10,000 Unive rs will-epbx 3-12 03-12 Units, ity of (RETACRIT) 02:00: 03:21 Subcutaneo [place] injection 00 :00 us, ONCE Medica l 10,000 AT 1999, 1 Branch Units dose, On [facility] 10/10/22 at 1999, Routine
hotel staff member approving Restricted medication : ROSA M RUTH benzonatate 2022-0 Yes [id number] 100mg Take 1 Univers 100 mg 3-12 105 capsule by ity of capsule 00:00: mouth [place] 00 every 8 Medical (eight) Branch hours as needed for Cough. pantoprazol 2022-0 Yes [id number] 40mg Take 1 Univers e 40 mg EC 3-12 105 tablet by ity of tablet 00:00: mouth in [place] 00 the Medical morning. Branch levoFLOXaci 2022-0 Yes [id number] 250mg Take 1 Univers n 250 mg 3-12 105 tablet by ity of tablet 00:00: mouth in [place] 00 the Medical morning. Branch acidophilus 2022-0 Yes [id number] 1g Take 1 Univers 100 million 3-12 105 tablet by ity of cell tablet 00:00: mouth in [facility] 00 the Medical morning Branch and 1 tablet in the evening. benzonatate 2022-0 Yes [id number] 100mg Take 1 Univers 100 mg 3-12 105 capsule by ity of capsule 00:00: mouth [place] 00 every 8 Medical (eight) Branch hours as needed for Cough. pantoprazol 2022-0 Yes [id number] 40mg Take 1 Univers e 40 mg EC 3-12 105 tablet by ity of tablet 00:00: mouth in [place] 00 the Medical morning. Branch levoFLOXaci 2022-0 Yes [id number] 250mg Take 1 Univers n 250 mg 3-12 105 tablet by ity of tablet 00:00: mouth in [place] 00 the Medical morning. Branch acidophilus 2022-0 Yes [id number] 1g Take 1 Univers 100 million 3-12 105 tablet by ity of cell tablet 00:00: mouth [place] 00 the Medical morning Branch and 1 tablet in the evening. lidocaine 2022-0 2022- No [id number] 20mL 20 mL, U nivers 1% (PF) 3-11 03-11 Subcutaneo ity o f (XYLOCAINE) 19:15: 19:15 , [place] injection 00 :00 DIALYSIS Medica l 20 mL ONCE - PT [place] ROOM, 1 dose, On [facility] 10/10/22 at 1315, ANGELA ergocalcife 2022-0 Yes [id number] 50,000 Un mahsa rol 3-11 Units, ity of (vitamin 15:00: Oral, [place] d2) 00 QWEEKLY, Medical (CALCIFEROL First dose Br anch ) capsule on [facility] 50,000 10/10/22 at Units 0900, Until Discontinu ed, Routine foLIC acid 2022-0 Yes 1mg 1 mg, Univer s (FOLATE) -11 Oral, ity of tablet 1 mg 15:00: DAILY, [place] 00 First dose Medical on [facility] 10/10/22 at 0900, Until Discontinu ed, Routine aspirin 2022-0 Yes 81mg 81 mg, Univers chewable 3-11 Oral, ity of tablet 81 15:00: DAILY, [place] mg 00 First dose Medical on [facility] 10/10/22 at 0900, Until Discontinu ed, Routine allopurinoL 2022-0 Yes 100mg 100 mg, Un mahsa (ZYLOPRIM) 3-11 Oral, ity of tablet 100 15:00: DAILY, [place] mg 00 First dose Medical on [facility] 10/10/22 at 0900, Until Discontinu ed, Routine calcium 2022-0 Yes 667mg 667 mg, Univer s acetate(lakhwinder 3-11 Oral, TID ity of sphat bind) 14:00: MEALS, [place] (PHOSLO) 00 First dose Medic al capsule 667 on [facility] Branch mg 10/10/22 at 0800, Until Discontinu ed, Routine levothyroxi 2022-0 Yes 50ug 50 mcg, Uni vers ne 311 Oral, ity of (SYNTHROID) 12:00: QAM-0600, [place] tablet 50 00 First dose Medi jimenez mcg on Sat Branch 10/10/22 at 0600, Until Discontinu ed, Routine heparin 2022-0 Yes 5000U 5,000 Univers (porcine) 311 Units, ity of injection 02:00: Subcutaneo [place] 5,000 Units 00 us, Q12H, Med ical First dose Branch on Wed10/09/22 at 2000, Until Discontinu ed, Routine atorvastati 0 Yes 20mg 20 mg, Univ ers n (LIPITOR) 310 Oral, QPM, it y of tablet 20 23:00: First dose [place] mg 00 on Wed Medical 10/09/22 at Branch 1700, Until Discontinu ed, Routine lidocaine 0 Yes 1{patch 1 Patch, U nivers (LIDODERM) 10 } Topical, ity o f 5 % (700 18:00: Administer [place] mg/patch) 00 over 12 Medical patch 1 Hours, Branch Patch DAILY, First dose on Wed10/09/22 at 1200, Until Discontinu ed, Routine sucralfate 0 2022- No 1g 1 g, Oral, Univers (CARAFATE) 10-09 03-11 QID, First it y of tablet 1 g 17:45: 21:59 dose on [place] 00 :22 Wed [facility] 10/09/22 at Branch 1145, Until Discontinu ed, Routine pantoprazol 2022-0 2022- No 40mg 40 mg, Uni vers e 3-10 03-11 Slow IV ity of (PROTONIX) 17:45: 21:59 Push, [place] injection 00 :27 Q12H, Medical 40 mg First dose Branch on Wed10/09/22 at 1145, Until Discontinu ed dextrometho 2022-2022- No 10mL 10 mL, Uni vers rphan-guaif 10-09 Oral, ONCE i ty of enesin 15:30: 14:32 NOW, 1 [place] (ROBITUSSIN 00 :00 dose, On Medi jimenez DM) 10-100 Fri Branch mg/5 mL 10/09/22 at solution 10 0930, mL Routine HYDROcodone 2022-2022- No 1{tbl} 1 tablet, Univers -acetaminop 10-09 Oral, ity of hen (NORCO) 15:10: 16:58 Q6HPRN, [place] 10-325 mg 38 :40 Starting Medica l tablet 1 on Wed Branch tablet 10/09/22 at 0910, Until 10/11/22 at 1158, Routine, Pain (scale 7-10) HYDROcodone 2022- No 1{tbl} 1 tablet, Univers -acetaminop 10-09 Oral, ity of hen (NORCO 15:10: 15:09 Q6HPRN, [place] 5) 5-325 mg 36 :36 Starting Medi jimenez tablet 1 on Fri Branch tablet 10/09/22 at 0910, Until 10/11/22 at 1009, Routine, Pain (scale 4-6) acetaminoph Yes 650mg 650 mg, Un mahsa en 10 Oral, ity of (TYLENOL) 15:10: Q6HPRN, [place] tablet 650 27 Starting Medic al mg on Fri Branch 10/09/22 at 0910, Until Discontinu ed, Routine, Pain (scale 1-3) famotidine 2022- No 20mg 20 mg, Univ ers (PEPCID 10-09 Slow IV ity of (PF)) 14:15: 13:36 Push, ONCE [place] injection 00 :00 NOW, 1 Medical 20 mg dose, On Branch 10/09/22 at 0815, ANGELA ondansetron 2022- No 4mg 4 mg, Slow Univers (ZOFRAN 10-09 IV Push, ity of (PF)) 13:15: 13:36 ONCE, 1 [place] injection 4 00 :00 dose, On Medi jimenez mg Fri Branch 10/09/22 at 0715, ANGELA NaCl 0.9% 2022- No 500mL at 999 Univ ers (NS) bolus 3-10 03-10 mL/hr, 500 it y of infusion 13:15: 14:51 mL, IV [place] 500 mL 00 :00 Infusion, Medical ONCE, 1 Branch dose, On Wed10/09/22 at 0715, STAT ondansetron 2022- No 4mg 4 mg, Slow Univers (ZOFRAN 309 03-09 IV Push, ity of (PF)) 05:45: 05:01 ONCE, 1 [place] injection 4 00 :00 dose, On Medi jimenez mg Wed10/07/22 Branch at 2345, ANGELA vancomycin 2021-08 Yes 15mg/kg 1,000 mg Univers (VANCOCIN) 2-15 (rounded ity o f 1,000 mg in 01:00: from 1,095 [place] NaCl 0.9% 00 mg = 15 Medical (NS) 250 mL mg/kg ?73 [facility] VIAL-MATE kg), IV IV Piggyback, piggyback Q48H ABX, First dose (after last reorder) on Wed07/15/22 at 1900, Until Discontinu ed, Administer over 60 Minutes, 250 mL
Reas on for Anti-Infec tive: Empiric Therapy for Suspected Infection< br>Empiric Therapy Site: Blood<b r>Duration of therapy: 72 hours heparin 2021-08- No 1500U 1,500 Univers 1,000 2-14 12-15 Units, ity of unit/mL 13:00: 00:59 Slow IV [place] injection 00 :00 Push, Medical 1,500 Units DIALYSIS Bran ch ONCE - PT ROOM, 1 dose, On Wed07/15/22 at 0700, Routine doxazosin 2021-08 Yes 2mg 2 mg, Univers (CARDURA) 2-14 Oral, QHS, ity of tablet 2 mg 03:00: First dose [place] 00 on Wed [facility] 07/14/22 Branch at 2100, Until Discontinu ed, Routine amLODIPine 2021-08 Yes 5mg 5 mg, Univer s (NORVASC) 2-14 Oral, QHS, ity of tablet 5 mg 03:00: First dose 00 (after Medical last Branch modificati on) on Wed07/14/22 at 2100, Until Discontinu ed, Routine carvediloL 2021-08 Yes 3.125mg 3.125 mg, Univers (COREG) 2-13 Oral, BID ity of tablet 23:00: MEALS, [place] 3.125 mg 00 First dose Medic al (after Branch last modificati on) on Wed07/14/22 at 1700, Until Discontinu ed, Routine atorvastati 2021-08 Yes 20mg 20 mg, Univ ers n (LIPITOR) 2-13 Oral, QPM, it y of tablet 20 23:00: First dose [place] mg 00 on [facility] 07/14/22 Branch at 1700, Until Discontinu ed, Routine amLODIPine 2021-08 Yes 5mg Take 5 mg Un mahsa (NORVASC) 2-13 by mouth ity of 10 mg 18:13: in the [facility] morning. Medical Take 1/2 Branch tablet once a day doxazosin 4 2021-08 Yes 2mg Take 2 mg U nivers mg tablet 2-13 by mouth ity of 18:13: every [place] [address] evening. Medical Take 1/2 Branch tablet at bedtime atorvastati 2021-08 Yes [id number] .5{tbl} Take 0.5 Univers n 40 mg 2-13 tablets by ity of tablet 18:13: mouth [place] [address] every Medical evening. Branch aspirin 81 2021-08 Yes 81mg Take 81 mg U nivers mg chewable 2-13 by mouth ity of tablet 18:13: daily. [address] foLIC acid 2021-08 Yes 1mg Take 1 mg Un mahsa 1 mg tablet 2-13 by mouth ity of 18:13: daily. [address] allopurinoL 2021-08 Yes 100mg Take 100 U nivers 100 mg 2-13 mg by ity of tablet 18:13: mouth in [place] [address] the Medical morning. Branch ferric 2021-08 Yes 210mg Take 210 Univer s citrate 2-13 mg by ity of (AURYXIA) 18:13: mouth 3 [place] 210 mg iron 06 (three) Medic al Tab times Branch daily. 2 tab 3x with meals 1 tab with a snack Cholestyram 2021-08 Yes 4g Take 4 g [place] ine Light 4 2-13 by mouth 3 it y of gram powder 18:13: (three) [place] 06 times Medical daily as Branch needed. levothyroxi 2021-08 Yes 50ug Take 50 Uni vers ne 50 mcg 2-13 mcg by ity of tablet 18:13: mouth [place] [address] every Medical morning. Branch amLODIPine 2021-08 Yes 5mg Take 5 mg Un mahsa (NORVASC) 2-13 by mouth ity of 10 mg 18:13: in the [place] [facility] 06 morning. Medical Take 1/2 Branch tablet once a day doxazosin 4 2021-08 Yes 2mg Take 2 mg U nivers mg tablet 2-13 by mouth ity of 18:13: every [place] [address] evening. Medical Take 1/2 Branch tablet at bedtime atorvastati 2021-08 Yes [id number] .5{tbl} Take 0.5 Univers n 40 mg 2-13 tablets by ity of tablet 18:13: mouth [place] [address] every Medical evening. Branch aspirin 81 2021-08 Yes 81mg Take 81 mg U nivers mg chewable 2-13 by mouth ity of tablet 18:13: daily. [address] Branch foLIC acid 2021-08 Yes 1mg Take 1 mg Un mahsa 1 mg tablet 2-13 by mouth ity of 18:13: daily. [address] Branch allopurinoL 2021-08 Yes 100mg Take 100 U nivers 100 mg 2-13 mg by ity of tablet 18:13: mouth in [place] [address] the Medical morning. Branch ferric 2021-08 Yes 210mg Take 210 Univer s citrate 2-13 mg by ity of (AURYXIA) 18:13: mouth 3 [place] 210 mg iron 06 (three) Medic al Tab times Branch daily. 2 tab 3x with meals 1 tab with a snack Cholestyram 2021-08 Yes 4g Take 4 g [place] ine Light 4 2-13 by mouth 3 it y of gram powder 18:13: (three) [place] 06 times Medical daily as Branch needed. levothyroxi 2021-08 Yes 50ug Take 50 Uni vers ne 50 mcg 2-13 mcg by ity of tablet 18:13: mouth [place] every Medical morning. Branch amLODIPine 2021-08 Yes 5mg Take 5 mg Un mahsa (NORVASC) 2-13 by mouth ity of 10 mg 18:13: in the [place] tablet 06 morning. Medical Take 1/2 Branch tablet once a day doxazosin 4 2021-08 Yes 2mg Take 2 mg U nivers mg tablet 2-13 by mouth ity of 18:13: every [place] 06 evening. Medical Take 1/2 Branch tablet at bedtime atorvastati 2021-08 Yes [id number] .5{tbl} Take 0.5 Univers n 40 mg 2-13 tablets by ity of tablet 18:13: mouth [place] every Medical evening. Branch aspirin 81 2021-08 Yes 81mg Take 81 mg U nivers mg chewable 2-13 by mouth ity of tablet 18:13: daily. [place] [address] Medical Branch foLIC acid 2021-08 Yes 1mg Take 1 mg Un mahsa 1 mg tablet 2-13 by mouth ity of 18:13: daily. [place] [address] Medical Branch allopurinoL 2021-08 Yes 100mg Take 100 U nivers 100 mg 2-13 mg by ity of tablet 18:13: mouth in [place] the Medical morning. Branch ferric 2021-08 Yes 210mg Take 210 Univer s citrate 2-13 mg by ity of (AURYXIA) 18:13: mouth 3 [place] 210 mg iron 06 (three) Medic al Tab times Branch daily. 2 tab 3x with meals 1 tab with a snack Cholestyram 2021-08 Yes 4g Take 4 g Un mah[facility] ine Light 4 2-13 by mouth 3 it y of gram powder 18:13: (three) [place] 06 times Medical daily as Branch needed. levothyroxi 2021-08 Yes 50ug Take 50 Uni vers ne 50 mcg 2-13 mcg by ity of tablet 18:13: mouth [place] 06 every Medical morning. Branch amLODIPine 2021-08 Yes 5mg Take 5 mg Un mahsa (NORVASC) 2-13 by mouth ity of 10 mg 18:13: in the [place] tablet 06 morning. Medical Take 1/2 Branch tablet once a day doxazosin 4 2021-08 Yes 2mg Take 2 mg U nivers mg tablet 2-13 by mouth ity of 18:13: every [place] 06 evening. Medical Take 1/2 Branch tablet at bedtime atorvastati 2021-08 Yes [id number] .5{tbl} Take 0.5 Univers n 40 mg 2-13 tablets by ity of tablet 18:13: mouth [place] every Medical evening. Branch aspirin 81 2021-08 Yes 81mg Take 81 mg U nivers mg chewable 2-13 by mouth ity of tablet 18:13: daily. [address] Branch foLIC acid 2021-08 Yes 1mg Take 1 mg Un mah[facility] 1 mg tablet 2-13 by mouth ity of 18:13: daily. [address] Branch allopurinoL 2021-08 Yes 100mg Take 100 U nivers 100 mg 2-13 mg by ity of tablet 18:13: mouth in [place] [address] the Medical morning. Branch ferric 2021-08 Yes 210mg Take 210 Univer s citrate 2-13 mg by ity of (AURYXIA) 18:13: mouth 3 [place] 210 mg iron 06 (three) Medic al Tab times Branch daily. 2 tab 3x with meals 1 tab with a snack Cholestyram 2021-08 Yes 4g Take 4 g Un [facility] ine Light 4 2-13 by mouth 3 it y of gram powder 18:13: (three) [place] 06 times Medical daily as Branch needed. levothyroxi 2021-08 Yes 50ug Take 50 Uni vers ne 50 mcg 2-13 mcg by ity of tablet 18:13: mouth [place] [address] every Medical morning. Branch calcium 2021-08 Yes 1334mg 1,334 mg, Uni vers acetate(lakhwinder 2-13 Oral, TID ity of sphat bind) 18:00: [place]ALS, [place] (PHOSLO) 00 First dose Medic al capsule on [facility] 1,334 mg 07/14/22 at 1200, Until Discontinu ed, Routine cetirizine 2021-08 Yes 10mg 10 mg, Unive rs (ZYRTEC) 2-13 Oral, ity of tablet 10 15:00: DAILY, [place] mg 00 First dose Medical on [facility] 07/14/22 at 0900, Until Discontinu ed, Routine foLIC acid 2021-08 Yes 1mg 1 mg, Univer s (FOLATE) 2-13 Oral, ity of tablet 1 mg 15:00: DAILY, [place] 00 First dose Medical on [facility] 07/14/22 at 0900, Until Discontinu ed, Routine aspirin 2021-08 Yes 81mg 81 mg, Univers chewable 2-13 Oral, ity of tablet 81 15:00: DAILY, [place] mg 00 First dose Medical on Wed [place] 07/14/22 at 0900, Until Discontinu ed, Routine allopurinoL 2021-08 Yes 100mg 100 mg, Un mahsa (ZYLOPRIM) 2-13 Oral, ity of tablet 100 15:00: DAILY, [place] mg 00 First dose Medical on Wed [place] 07/14/22 at 0900, Until Discontinu ed, Routine heparin 2021-08 Yes 5000U 5,000 Univers (porcine) 2-13 Units, ity of injection 12:00: Subcutaneo [place] 5,000 Units 00 us, Q8H, Medi jimenez First dose Branch on Wed07/14/22 at 0600, Until Discontinu ed, Routine levothyroxi 2021-08 Yes 50ug 50 mcg, Uni vers ne 2-13 Oral, ity of (SYNTHROID) 12:00: QAM-0600, [place] tablet 50 00 First dose Medi jimenez mcg on Wed07/14/22 at 0600, Until Discontinu ed, Routine ondansetron 2021-08 Yes 4mg 4 mg, Slow Univers (ZOFRAN 2- IV Push, ity of (PF)) 04:41: Q6HPRN, [place] injection 4 36 Starting Medi jimenez mg on Wed07/13/22 at 2241, Until Discontinu ed, Routine, Nausea and Vomiting (N/V) traMADoL 2021-08- No 50mg 50 mg, Univer s (ULTRAM) 2 1215 Oral, ity of tablet 50 04:41: 04:40 Q8HPRN, [place] mg 30 :30 Starting Medical on Wed07/13/22 at 2241, Until Wed07/15/22 at 2240, Routine, Pain (scale 4-6) acetaminoph 2021-08 Yes 650mg 650 mg, Un mah[facility] en 2-13 Oral, ity of (TYLENOL) 04:41: Q6HPRN, [place] tablet 650 28 Starting Medic al mg on Wed07/13/22 at 2241, Until Discontinu ed, Routine, Pain (scale 1-3) vancomycin 2021-08- No 15mg/kg 1,000 mg Univers (VANCOCIN) 207-14 (rounded ity of 1,000 mg in 01:30: 02:53 from [address] [place] [address] NaCl 0.9% 00 :00 mg = 15 Medical (NS) 250 mL mg/kg ?73 [facility] VIAL-MATE kg), IV IV Piggyback, piggyback ONCE, 1 dose, On 07/13/22 at 1930, Administer over 60 Minutes, 250 mL
Reas on for Anti-Infec tive: Empiric Therapy for Suspected Infection< br>Empiric Therapy Site: Blood
D uration of therapy: 72 hours ceFEPIme 2021-08- No 1g 1 g, IV Unive rs (MAXIPIME) 09-14 Piggyback, it y of 1 g in NaCl 00:30: 01:08 ONCE, 1 [place] 0.9% (NS) 00 :00 dose, On Medica l 50 mL Mon Branch MINI-BAG 07/13/22 at 1830, Administer over 30 Minutes, 50 mL
Reas on for Anti-Infec tive: Documented Infection< br>Documen terrance Infection Site: Blood
D uration of Therapy: Other (see Comments) calcium 2021-08- No [id number] 1334mg Take 2 U nivers acetate,lakhwinder 09-14 capsules ity of sphat bind, 00:00: 05:59 by mouth [place] 667 mg 00 :00 in the Medical capsule morning Branch and 2 capsules at noon and 2 capsules in the evening. Take with meals. Do all this for 30 days. calcium 2021-08- No [id number] 1334mg Take 2 U nivers acetate,lakhwinder 09-14 capsules ity of sphat bind, 00:00: 05:59 by mouth [place] 667 mg 00 :00 in the Medical capsule morning Branch and 2 capsules at noon and 2 capsules in the evening. Take with meals. Do all this for 30 days. calcium 2021-08- No [id number] 1334mg Take 2 U nivers acetate,lakhwinder 09-14 capsules ity of sphat bind, 00:00: 05:59 by mouth [place] 667 mg 00 :00 in the Medical capsule morning Branch and 2 capsules at noon and 2 capsules in the evening. Take with meals. Do all this for 30 days. acetaminoph 2021-08 No 975mg 975 mg, U nivers en 2-12 12-12 Oral, ity of (TYLENOL) 23:45: 22:57 ONCE, 1 [place] tablet 975 00 :00 dose, On Medic al mg Mon Branch 07/13/22 at 1745, ANGELA levothyroxi 2021-08- No 75ug Take 75 Un mahsa ne 75 mcg 2-12 12-12 mcg by ity of tablet 22:41: 00:00 mouth [place] 50 :00 daily. Medical Branch sodium 2021-08- No [id number] 325mg Take 325 U nivers bicarbonate 2-12 12-12 mg by ity of 325 mg 22:41: 00:00 mouth 2 [place] tablet 50 :00 (two) Medical times Branch daily. levothyroxi 2021-08 Yes 75ug Take 75 Uni vers ne 75 mcg 0-01 mcg by ity of tablet 15:39: mouth [place] [address] daily. Medical Branch amLODIPine 2021-08 Yes 10mg Take 10 mg U nivers (NORVASC) 0-01 by mouth ity of 10 mg 15:39: daily. [facility] 11 [facility] Branch doxazosin 4 2021-08 Yes 4mg Take 4 mg U nivers mg tablet 0-01 by mouth 2 ity of 15:39: (two) [place] [address] times Medical daily. Branch atorvastati 2021-08 Yes [id number] .5{tbl} Take 0.5 Univers n 40 mg 0-01 tablets by ity of tablet 15:39: mouth [place] [address] daily. Medical Branch aspirin 81 2021-08 Yes 81mg Take 81 mg U nivers mg chewable 0-01 by mouth ity of tablet 15:39: daily. [address] Branch foLIC acid 2021-08 Yes 1mg Take 1 mg Un [facility] 1 mg tablet 0-01 by mouth ity of 15:39: daily. [address] sodium 2021-08 Yes [id number] 325mg Take 325 Un mahsa bicarbonate 0-01 mg by ity of 325 mg 15:39: mouth 2 [place] tablet 11 (two) Medical times Branch daily. allopurinoL 2021-08 Yes 100mg Take 100 U nivers 100 mg 0-01 mg by ity of tablet 15:39: mouth in [place] [address] the Medical morning. Branch ferric 2021-08 Yes 210mg Take 210 Univer s citrate 0-01 mg by ity of (AURYXIA) 15:39: mouth 3 [place] 210 mg iron 11 (three) Medic al Tab times [place] daily. 2 tab 3x with meals 1 tab with a snack Cholestyram 2021-08 Yes 4g Take 4 g Un mah[facility] ine Light 4 0-01 by mouth 3 it y of gram powder 15:39: (three) [place] 11 times Medical daily with Branch meals. levothyroxi 2021-08 Yes 75ug Take 75 Uni vers ne 75 mcg 0-01 mcg by ity of tablet 15:39: mouth [place] [address] daily. Medical Branch amLODIPine 2021-08 Yes 10mg Take 10 mg U nivers (NORVASC) 0-01 by mouth ity of 10 mg 15:39: daily. [address] Branch doxazosin 4 2021-08 Yes 4mg Take 4 mg U nivers mg tablet 0-01 by mouth 2 ity of 15:39: (two) [place] [address] times [facility] daily. Branch atorvastati 2021-08 Yes [id number] .5{tbl} Take 0.5 Univers n 40 mg 0-01 tablets by ity of tablet 15:39: mouth [place] [address] daily. Medical Branch aspirin 81 2021-08 Yes 81mg Take 81 mg U nivers mg chewable 0-01 by mouth ity of tablet 15:39: daily. [address] foLIC acid 2021-08 Yes 1mg Take 1 mg Un [facility] 1 mg tablet 0-01 by mouth ity of 15:39: daily. [address] Branch sodium 2021-08 Yes [id number] 325mg Take 325 Un mahsa bicarbonate 0-01 mg by ity of 325 mg 15:39: mouth 2 [place] tablet 11 (two) Medical times [place] daily. allopurinoL 2021-08 Yes 100mg Take 100 U nivers 100 mg 0-01 mg by ity of tablet 15:39: mouth in [place] [address] the Medical morning. Branch ferric 2021-08 Yes 210mg Take 210 Univer s citrate 0-01 mg by ity of (AURYXIA) 15:39: mouth 3 [place] 210 mg iron 11 (three) Medic al Tab times [place] daily. 2 tab 3x with meals 1 tab with a snack Cholestyram 2021-08 Yes 4g Take 4 g Un mah[facility] ine Light 4 0-01 by mouth 3 it y of gram powder 15:39: (three) [place] 11 times Medical daily with Branch meals. levothyroxi 2021-08 Yes 75ug Take 75 Uni vers ne 75 mcg 0-01 mcg by ity of tablet 15:39: mouth [place] [address] daily. Medical Branch amLODIPine 2021-08 Yes 10mg Take 10 mg U nivers (NORVASC) 0-01 by mouth ity of 10 mg 15:39: daily. [place] tablet 11 [facility] Branch doxazosin 4 2021-08 Yes 4mg Take 4 mg U nivers mg tablet 0-01 by mouth 2 ity of 15:39: (two) [place] 11 times Medical daily. Branch atorvastati 2021-08 Yes [id number] .5{tbl} Take 0.5 Univers n 40 mg 0-01 tablets by ity of tablet 15:39: mouth [place] [address] daily. [facility] Branch aspirin 81 2021-08 Yes 81mg Take 81 mg U nivers mg chewable 0-01 by mouth ity of tablet 15:39: daily. [address] Branch foLIC acid 2021-08 Yes 1mg Take 1 mg Un [facility] 1 mg tablet 0-01 by mouth ity of 15:39: daily. [address] sodium 2021-08 Yes [id number] 325mg Take 325 Un mahsa bicarbonate 0-01 mg by ity of 325 mg 15:39: mouth 2 [place] tablet 11 (two) Medical times Branch daily. allopurinoL 2021-08 Yes 100mg Take 100 U nivers 100 mg 0-01 mg by ity of tablet 15:39: mouth in [place] [address] the Medical morning. Branch ferric 2021-08 Yes [...] Yes 3mL 3 mL, Unive rs -albuteroL 9-30 Inhalation ity of (DUONEB) 01:00: , BID, [place] 0.5 mg-3 00 First dose Medic al mg(2.5 mg (after Branch base)/3 mL last nebulizer modificati solution 3 on) on [facility] mL 04/30/22 at 2000, Until Discontinu ed, Routine benzocaine- Yes [id number] 1{lozen 1 Lozenge, Univers menthoL 04-30 ge} Oral, ity of (CEPACOL 22:22: Q4HPRN, [place] SORE THROAT 10 Starting Medi jimenez (SATNAM-MEN)) on [place] Branch lozenge 1 04/30/22 at Lozenge 1722, Until Discontinu ed, Routine, Sore throat levothyroxi Yes 75ug 75 mcg, Uni vers ne 04-28 Oral, ity of (SYNTHROID) 11:00: QAM-0600, [place] tablet 75 00 First dose Medi jimenez mcg on e Branch 04/28/22 at 0600, Until Discontinu ed, Routine epoetin 2021- No [id number] 10,000 Unive rs will-epbx 04-27 Units, ity of (RETACRIT) 14:45: 15:35 Intravenou [place] injection 00 :00 s, Medical 10,000 DIALYSIS Branch Units ONCE - PT ROOM, 1 dose, On Wed04/27/22 at 0945, Routine
hotel staff member approving Restricted medication : STANLEY PATIÑO dextrose 50 Yes 25mL 25 mL, Univ ers % in water 04-27 Slow IV ity of (D50W) 14:28: Push, PRN [place] injection 04 - SEE Medical 25 mL INSTRUCTIO Branch NS, 1 dose, Starting on Wed04/27/22 at 0928, Until Discontinu ed, Routine, Administer once if after insulin administra tion, blood glucose is 71-150 mg/dL and patient is unable to eat a 15 g carb snack atorvastati Yes 20mg 20 mg, Univ ers n (LIPITOR) 04-27 Oral, ity of tablet 20 14:00: DAILY, [place] mg 00 First dose Medical on [facility] Branch 04/27/22 at 0900, Until Discontinu ed, Routine aspirin Yes 81mg 81 mg, Univers chewable 04-27 Oral, ity of tablet 81 14:00: DAILY, [place] mg 00 First dose Medical on Mon Branch 04/27/22 at 0900, Until Discontinu ed, Routine calcium 2g 2 g, IV Univer s gluconate 2 04-27 Infusion, it y of g in NaCl 13:30: 13:13 at 200 [place] 100 mL 00 :00 mL/hr Medical (ISO-OSM) Administer Bran ch RTU IV over 30 infusion 2 Minutes, g ONCE, 1 dose, On Wed04/27/22 at 0830, STAT dextrose 50 2021- No 50mL 50 mL, Uni vers % in water 04-27 Slow IV ity o f (D50W) 12:30: 12:43 Push, [place] injection 00 :00 ONCE, 1 Medical 50 mL dose, On Branch 04/27/22 at 0730, ANGELA insulin 2021- No .1U/kg 7.13 Units U nivers regular 04-27 (0.1 ity of human 12:30: 12:43 Units/kg [place] (HUMULIN R) 00 :00 ?71.3 kg), Hi dical injection IV Push, [place] 7.13 Units ONCE, 1 dose, On Wed04/27/22 at 0730, ANGELA
In dication for insulin: Hyperkalem ia- Please use the Insulin Protocol for Hyperkalem ia order set sodium 50meq 50 mEq, Univer s bicarbonate 04-27 Slow IV ity of 1 mEq/mL 12:30: 12:43 Push, [place] (8.4 %) 00 :00 ONCE, 1 Medical injection dose, On Branch 50 mEq 04/27/22 at 0730, ANGELA glucagon Yes 1mg 1 mg, Univers (GLUCAGEN 04-27 Intramuscu ity of DIAGNOSTIC 12:: lar, PRN, [place] KIT) 52 Starting Medical injection 1 on Mon Branch mg 04/27/22 at 0726, Until Discontinu ed, ANGELA, Blood Glucose < or = 70 mg/dL and patient is unable to swallow or has mental changes. dextrose 50 2022-0 Yes 25mL 25 mL, Univ ers % [...] 2 Minutes, g ONCE, 1 dose, On Wed04/27/22 at 0215, Routine sodium 2021- No 100meq 100 mEq, Univ ers bicarbonate 04-27 Slow IV ity of 1 mEq/mL 07:15: 07:00 Push, [place] (8.4 %) 00 :00 ONCE, 1 Medical injection dose, On Branch 100 mEq Wed04/27/22 at 0215, Routine acetaminoph Yes 650mg 650 mg, Un mahsa en 04-27 Oral, ity of (TYLENOL) 05:34: Q6HPRN, [place] 160 mg/5 mL 21 Starting Medi jimenez oral liquid on Mon Branch 650 mg 04/27/22 at 0034, Until [...] 01 Starting Medica l 25 mL on [employer] Branch 04/26/22 at 1113, Until Discontinu ed, Routine, Blood Glucose <= 70 atropine 2021- No .4mg 0.4 mg, IV Un mahsa injection 04-26 Push, ity of 0.4 mg 14:31: 15:22 Q5MIN PRN, [place] 23 :16 Starting Medical on [employer] Branch 04/26/22 at 0931, Until [employer] 04/26/22 at 1022, Routine, Symptomati c Bradycardi a insulin No 10U 10 Units, Univ ers regular 04-26 Slow IV ity of human 14:30: 13:50 Push, [place] (HUMULIN R) 00 :00 ONCE, 1 Medic al injection dose, On [place] 10 Units [employer] 04/26/22 at 0930, Routine
Indicatio n for insulin: Hyperglyce leroy dextrose 50 No 25mL 25 mL, Uni vers % in water 04-26 Slow IV ity o f (D50W) 14:30: 13:46 Push, [place] injection 00 :00 ONCE, 1 Medical 25 mL dose, On [place] 04/26/22 at 0930, Routine albuterol No 2.5mg 2.5 mg, Uni vers (PROVENTIL) 04-26 Inhalation i ty of 2.5 mg /3 13:52: 14:46 , PRN, 4 [place] mL (0.083 56 :00 doses, Medical %) Starting [place] nebulizer on [employer] solution 04/26/22 at 2.5 mg 0852, Until Discontinu ed, Routine, Shortness of Breath, Wheezing, Hyperkalem ia ondansetron 2021- No 4mg 4 mg, Slow Univers (ZOFRAN 04-26 IV Push, ity of (PF)) 13:30: 13:30 ONCE, On [place] injection 4 00 :00 Sun Medical mg 04/26/22 at [place] 0830, For 1 dose
Do ses of ondansetro n 16 mg and above need to be administer ed via IV piggyback. For Dose >=24mg ECG monitoring is advisable.
lidocaine-p Yes Topical, Un mahsa rilocaine 04-26 QDAILYPRN, ity of (EMLA) 13:22: Starting [place] 2.5-2.5 % 49 on [employer] Medical cream 04/26/22 at Branch 0822, Until Discontinu ed, Routine, Local anesthesia heparin Yes 5000U 5,000 Univers (porcine) 04-26 Units, ity of injection 13:00: Subcutaneo [place] 5,000 Units 00 us, Q12H, Med ical First dose Branch on 04/26/22 at 0800, Until Discontinu ed, Routine famotidine No 10mg 10 mg, Univ ers (PEPCID 04-2627 Slow IV ity of (PF)) 13:00: 14:45 Push, [place] injection 00 :08 Q12H, 6 Medical 10 mg doses, Branch First dose on 04/26/22 at 0800, Last dose on Wed04/28/22 at [...] mmHg, for HR < 40, Starting on 04/26/22 at 0745
In itiate infusion at 2.5 mcg/kg/min . &nb sp;Increas e by 2.5 mcg/kg/min every 1 minute to 5 minutes as needed to reach and maintain goal blood pressure.& nbsp;&nbsp ;Maximum dose = 7.5 mcg/kg/min . If goal not maintained at maximum allowed dose, contact prescriber . &nb sp;Adminis ter only one peripheral intravenou s vasopresso r at a time.
sodium No 100meq 100 mEq, [facility] ers bicarbonate 04-26 Slow IV ity of 1 mEq/mL 12:30: 11:54 [place], [place] (8.4 %) 00 :00 ONCE, 1 Medical injection dose, On Branch 100 mEq [employer] 04/26/22 at 0730, Routine calcium No 2g 2 g, IV Univer s gluconate 2 04-26 Infusion, it y of g in NaCl 12:30: 12:31 at 200 [place] 100 mL 00 :00 mL/hr Medical (ISO-OSM) Administer Bran ch RTU IV over 30 infusion 2 Minutes, g ONCE, 1 dose, On [employer] 04/26/22 at 0730, Routine ipratropium No 3mL 3 mL, [place] [facility] -albuteroL 04-26 Inhalation it y of (DUONEB) 11:45: 13:40 , QID, [place] 0.5 mg-3 00 :00 First dose Medic al mg(2.5 mg on [facility] base)/3 mL 04/26/22 at nebulizer 0645, solution 3 Until mL Discontinu ed, Routine dextrose 50 No 25mL 25 mL, Uni vers % in water 04-26 Slow IV ity o f (D50W) 10:15: 10:05 [place], [place] injection 00 :00 ONCE, 1 Medical 25 mL dose, On Branch [employer] 04/26/22 at 0515, Routine insulin No 10U 10 Units, [facility] regular 04-26 Slow IV ity of human 08:45: 08:09 [place], [place] (HUMULIN R) 00 :00 ONCE, 1 Medic al injection dose, On Branch 10 Units [employer] 04/26/22 at 0345, Routine
Indicatio n for insulin: Hyperglyce leroy dextrose 50 No 50mL 50 mL, Uni vers % in water 04-26 Slow IV ity o f (D50W) 08:45: 08:07 [place], [place] injection 00 :00 ONCE, 1 Medical 50 mL dose, On Branch [employer] 04/26/22 at 0345, Routine calcium No 1g 1 g, IV Univer s gluconate 1 04-26 Infusion, it y of g in NaCl 08:30: 08:39 at 100 [place] 50 mL 00 :00 mL/hr Medical (ISO-OSM) Administer Bran ch RTU IV over 30 infusion 1 Minutes, g ONCE, 1 dose, On [employer] 04/26/22 at 0330, Routine NaCl 0.9% 2021- No 250mL at 999 Univ ers (NS) IV 04-26 mL/hr, ity of infusion 08:30: 19:24 Intravenou [place] 250 mL 00 :41 s, Medical CONTINUOUS Branch , Starting on [employer] 04/26/22 at 0330, Until [employer] 04/26/22 at 1424, Routine atropine No 1mg 1 mg, IV Univ ers injection 1 04-26 Push, ity of mg 08:00: 07:47 ONCE, 1 [place] 00 :00 dose, On Medical [facility] 04/26/22 at 0300, Routine albuterol No 10mg 10 mg, Unive rs (PROVENTIL) 04-26 Inhalation i ty of 2.5 mg /3 08:00: 08:16 , ONCE, 1 [place] mL (0.083 00 :00 dose, On Medica l %) [facility] nebulizer 04/26/22 at solution 10 0300, STAT mg proMETHazin 2021- No 25mg 25 mg, IV Univers e 04-26 Piggyback, ity of (PHENERGAN) 07:15: 07:21 ONCE, 1 [place] 25 mg in 00 :00 dose, On Medical NaCl 0.9% [facility] (NS) 50 mL 04/26/22 at IV 0215, ANGELA piggyback sodium Yes 5mL 5 mL, Univers chloride 04-26 Intravenou ity o f (NS) 06:52: s, PRN, [place] injection 5 13 Starting Medi jimenez mL on [employer] Branch 04/26/22 at 0152, Until Discontinu ed, Routine, IV line flushing tetanus-dip 2019- 2020- No .5mL 0.5 mL, Un mahsa htheria 0-19 10-19 Intramuscu ity o f toxoids 19:15: 19:26 lar, ONCE, [place] as (TENIVAC) 00 :00 1 dose, Medical 5-2 Lf Mon Branch unit/0.5 mL 05/20/20 injection at 1415, 0.5 mL Routine lidocaine-p 2020-0 Yes [id number] administra Methodi rilocaine 2-[address] (EMLA) 00:00: local Hospita 2.5-2.5 % 00 anesthetic l cream drug. Apply over fistula 30-45 min before dialysis lidocaine-p 2020-0 Yes [id number] administra Methodi rilocaine 2-[address] (EMLA) 00:00: local Hospita 2.5-2.5 % 00 anesthetic l cream drug. Apply over fistula 30-45 min before dialysis acetaminoph 2020-0 Yes [id number] 1{tbl} Q6H Take 1 M ethodi en-codeine 1-[address] (TYLENOL 00:00: mouth Hospita WITH 00 every 6 l CODEINE #3) (six) 300-30 mg hours as per tablet needed for moderate pain for up to 5 days .acute pain. acetaminoph 2020-0 Yes [id number] 1{tbl} Q6H Take 1 M ethodi en-codeine 1-[address] (TYLENOL 00:00: mouth Hospita WITH 00 every 6 l CODEINE #3) (six) 300-30 mg hours as per tablet needed for moderate pain for up to 5 days .acute pain. amLODIPine 2020-0 Yes 10mg QD Take 10 mg M [...] mouth Hospita mg 39 daily. l tablet,[place] posey release (DR/EC) aspirin-jimenez 2020-0 Yes 81mg Take 81 mg Methodi cium 1-[address] carbonate 14:22: Hospita 81 mg-300 39 l mg calcium(777 mg) tablet hydrALAZINE 2020-0 Yes 10mg Q.[id number] Take 10 mg Methodi (APRESOLINE 1-06 [id number] mouth [address] ) 10 MG 14:22: 3D (three) Hospita tablet 39 times a l day. amLODIPine 2020-0 Yes 10mg QD Take 10 mg M [...] 14:22: mouth Hospita mg 39 daily. l tabletloco release (DR/EC) aspirin-jimenez 2020-0 Yes 81mg Take 81 mg Methodi cium 1-[address] carbonate 14:22: Hospita 81 mg-300 39 l mg calcium(777 mg) tablet hydrALAZINE 2020-0 Yes 10mg Q.[id number] Take 10 mg Methodi (APRESOLINE 1-06 [id number] mouth [address] ) 10 MG 14:22: 3D (three) Hospita tablet 39 times a l day. allopurinol 1 Yes 100mg QD Take 100 M ethodi (ZYLOPRIM) 1-[address] 100 MG 00:00: mouth Hospita tablet 00 daily. l allopurinol 2018-08 Yes 100mg QD Take 100 M ethodi (ZYLOPRIM) 1-[address] 100 MG 00:00: mouth Hospita tablet 00 daily. l carvedilol 2018-08 Yes 31.25mg Q.5D Take 31.25 Methodi (COREG) 0-[address] 6.25 MG 00:00: mouth 2 Hospita tablet 00 (two) l times a day. carvedilol 2018-08 Yes 31.25mg Q.5D Take 31.25 Methodi (COREG) 0-[address] 6.25 MG 00:00: mouth 2 Hospita tablet 00 (two) l times a day. levothyroxi Yes 1{tbl} Take 1 Me thodi ne 9-[address] (SYNTHROID) 00:00: mouth. Hosp manjinder 50 mcg 00 l tablet levothyroxi Yes 1{tbl} Take 1 Me thodi ne 9-[address] (SYNTHROID) 00:00: mouth. Hosp manjinder 50 mcg 00 l tablet sodium 2017-08 Yes [id number] 325mg Take 325 [place] bicarbonate 2-03 [...] mouth 2 ity of 14:52: (two) [place] 07 times Medical daily. Branch atorvastati 2017-08 Yes [id number] .5{tbl} Take 0.5 Univers n 40 mg 2-03 tablets by ity of tablet 14:52: mouth daily. Medical Branch aspirin 81 2017-08 Yes 81mg Take 81 mg U nivers mg chewable 2-03 by mouth ity of tablet 14:52: daily. Medical Branch foLIC acid 2017-08 Yes 1mg Take 1 mg Un [place]sa 1 mg tablet 2-03 by mouth ity of 14:52: daily. [place] Medical Branch hydralAZINE 2018-0 Yes 50mg Take 50 mg Univers 10 mg 5-23 by mouth ity of tablet 00:00: in the [place] 00 morning Medical and 50 mg Branch in the evening. hydralAZINE 2017-0 Yes 10mg Take 10 mg Univers 10 mg 5-23 by mouth ity of tablet 00:00: daily. [place] Medical Branch hydralAZINE 2017-0 Yes 50mg Take 50 mg Univers 10 mg 5-23 by mouth ity of tablet 00:00: in the [place] 00 morning Medical and 50 mg Branch in the evening. hydralAZINE 2017-0 Yes 50mg Take 50 mg Univers 10 mg 5-23 by mouth ity of tablet 00:00: in the [place] morning Medical and 50 mg Branch in the evening. hydralAZINE 2017-2021- No 50mg Take 50 mg Univers 10 mg 5-23 12-12 by mouth ity of tablet 00:00: 00:00 in the [place] 00 :00 morning Medical and 50 mg Branch in the evening. carvedilol 2017- Yes 1{tbl} Take 1 Uni vers 6.25 mg 4-26 tablet by ity of tablet 00:00: mouth in [place] [address] the Medical morning Branch and 1 tablet in the evening. Take with meals. carvedilol 2017-0 Yes 1{tbl} Take 1 Uni vers 6.25 mg 4-26 tablet by ity of tablet 00:00: mouth [place] 00 daily. Medical Branch carvedilol 2017-0 Yes 1{tbl} Take 1 Uni vers 6.25 mg 4-26 tablet by ity of tablet 00:00: mouth in [place] [address] the Medical morning Branch and 1 tablet in the evening. Take with meals. carvedilol 2018-0 Yes 1{tbl} Take 1 Uni vers 6.25 mg 4-26 tablet by ity of tablet 00:00: mouth in [place] [address] the Medical morning Branch and 1 tablet in the evening. Take with meals. carvedilol 2018-0 Yes .5{tbl} Take 0.5 Univers 6.25 mg 4-26 tablets by ity of tablet 00:00: mouth in [place] [address] the Medical morning Branch and 0.5 tablets in the evening. Take with meals. Hold morning dose on [facility] carvedilol Yes .5{tbl} Take 0.5 Univers 6.25 mg 4-26 tablets by ity of tablet 00:00: mouth in [place] 00 the [facility] morning Branch and 0.5 tablets in the evening. Take with meals. Hold morning dose on [facility] carvedilol Yes .5{tbl} Take 0.5 Univers 6.25 mg 4-26 tablets by ity of tablet 00:00: mouth in [place] [address] the [facility] morning Branch and 0.5 tablets in the evening. Take with meals. Hold morning dose on [facility] carvedilol Yes .5{tbl} Take 0.5 Univers 6.25 mg 4-26 tablets by ity of tablet 00:00: mouth in [place] [address] the [facility] morning Branch and 0.5 tablets in the evening. Take with meals. Hold morning dose on [facility] carvedilol Yes 3.125mg Take 0.5 Univers 6.25 mg 4-26 tablets by ity of tablet 00:00: mouth in [place] [address] the [facility] morning Branch and 0.5 tablets in the evening. Take with meals. Hold morning dose on [facility] carvedilol Yes 3.125mg Take 0.5 Univers 6.25 mg 4-26 tablets by ity of tablet 00:00: mouth in [place] 00 the [facility] morning Branch and 0.5 tablets in the evening. Take with meals. Hold morning dose on [facility] doxazosin Yes Comments: Met miller WATTS) 4 04-22 | Filled st [facility] tablet 00:00: Date: Apr Hos winifred 2016 l 12:00AM | Patient Notes: TAKE 1 TABLET BY ORAL ROUTE 2 TIMES EVERY DAY Duration: 90 doxazosin Yes Comments: Met miller WATTS) 4 04-22 | Filled st [facility] tablet 00:00: Date: Apr Hos winifred 2016 l 12:00AM | Patient Notes: TAKE 1 TABLET BY ORAL ROUTE 2 TIMES EVERY DAY Duration: 90 Immunizations Ordered Filled Immunization Date Status Comments [facility] e Immunization Name Name SARS-COV-2 COVID-19 2020-11-07 Completed Unive rsity of PFIZER VACCINE 00:00:00 [facility] SARS-COV-2 COVID-19 2020-11-07 Completed Unive rsity of PFIZER VACCINE 00:00:00 [facility] Branch SARS-COV-2 COVID-19 2020-11-07 Completed Unive rsity of PFIZER VACCINE 00:00:00 [facility] Branch SARS-COV-2 COVID-19 2020-11-07 Completed Unive rsity of PFIZER VACCINE 00:00:00 [facility] Branch SARS-COV-2 COVID-19 2020-11-07 Completed Unive rsity of PFIZER VACCINE 00:00:00 [facility] Branch SARS-COV-2 COVID-19 2020-11-07 Completed Unive rsity of PFIZER VACCINE 00:00:00 [facility] Branch SARS-COV-2 COVID-19 2020-11-07 Completed Unive rsity of PFIZER VACCINE 00:00:00 [facility] Branch SARS-COV-2 COVID-19 2020-11-07 Completed Unive rsity of PFIZER VACCINE 00:00:00 [facility] Branch SARS-COV-2 COVID-19 2020-11-07 Completed Unive rsity of PFIZER VACCINE 00:00:00 [facility] Branch SARS-COV-2 COVID-19 2020-10-16 Completed Unive rsity of PFIZER VACCINE 00:00:00 [facility] Branch SARS-COV-2 COVID-19 2020-10-16 Completed Unive rsity of PFIZER VACCINE 00:00:00 [facility] Branch SARS-COV-2 COVID-19 2020-10-16 Completed Unive rsity of PFIZER VACCINE 00:00:00 [facility] Branch SARS-COV-2 COVID-19 2020-10-16 Completed Unive rsity of PFIZER VACCINE 00:00:00 [facility] Branch SARS-COV-2 COVID-19 2020-10-16 Completed Unive rsity of PFIZER VACCINE 00:00:00 [facility] Branch SARS-COV-2 COVID-19 2020-10-16 Completed Unive rsity of PFIZER VACCINE 00:00:00 [facility] Branch SARS-COV-2 COVID-19 2020-10-16 Completed Unive rsity of PFIZER VACCINE 00:00:00 [facility] Branch SARS-COV-2 COVID-19 2020-10-16 Completed Unive rsity of PFIZER VACCINE 00:00:00 [facility] Branch SARS-COV-2 COVID-19 2020-10-16 Completed Unive rsity of PFIZER VACCINE 00:00:00 [facility] Branch Td 2020-05-20 Completed University of 00:00:[address] [facility] Td 2020-05-20 Completed University of 00:00:00 [facility] Branch Td 2020-05-20 Completed University of 00:00:[address] [facility] Td 2020-05-20 Completed University of 00:00:00 [facility] Branch Td 2020-05-20 Completed University of 00:00:00 [facility] Branch Td 2020-05-20 Completed University of 00:00:00 [facility] Branch TD, NOS 2020-05-20 Completed University of 00:00:[address] [facility] TD, NOS 2020-05-20 Completed University of 00:00:[address] [facility] TD, NOS 2020-05-20 Completed University of 00:00:[address] [facility] TD, NOS 2020-05-20 Completed University of 00:00:[address] [facility] Vital Signs Vital Name Observation Time Observation Value Comments Source Systolic blood 2022-10-11 16:56:00 132 mm[Hg] Univer sity of pressure [facility] Diastolic blood 2022-10-11 16:56:00 52 mm[Hg] Unive rsity of pressure [facility] Heart rate 2022-10-11 16:56:00 74 /min [facility] Body temperature 2022-10-11 16:56:00 36.17 Althea [facility] Respiratory rate 2022-10-11 16:56:00 15 /min [facility] Oxygen saturation in 2022-10-11 16:56:00 98 /min [facility] Arterial blood by [facility] Pulse oximetry Branch Body weight 2022-10-11 08:38:00 69.491 kg [facility] BMI 2022-10-11 08:38:00 20.78 kg/m2 [facility] Body height 2022-10-09 17:01:00 182.9 cm [facility] Systolic blood 2022-10-08 08:00:00 147 mm[Hg] Univer sity of pressure [facility] Diastolic blood 2022-10-08 08:00:00 57 mm[Hg] Unive rsity of pressure [facility] Heart rate 2022-10-08 08:00:00 79 /min [facility] [place] [facility] Respiratory rate 2022-10-08 08:00:00 22 /min [facility] [place] [facility] Oxygen saturation in 2022-10-08 08:00:00 100 /min University of Arterial blood by [facility] jimenez Pulse oximetry Branch Body temperature 2022-10-08 04:14:11 37 Althea [facility] [place] [facility] Systolic blood 2022-07-30 06:31:00 149 mm[Hg] Univer sity of pressure [place] [facility] Diastolic blood 2022-07-30 06:31:00 61 mm[Hg] Unive rsity of pressure [place] [facility] Heart rate 2022-07-30 06:31:00 69 /min [facility] [place] [facility] Respiratory rate 2022-07-30 06:31:00 17 /min [facility] [place] [facility] Oxygen saturation in 2022-07-30 06:31:00 100 /min University of Arterial blood by [facility] Pulse oximetry Branch Body temperature 2022-07-30 04:06:00 37.06 Althea [facility] [place] [facility] Body height 2022-07-30 04:06:00 182.9 cm [facility] [place] [facility] Body weight 2022-07-30 04:06:00 75.751 kg [facility] [place] [facility] BMI 2022-07-30 04:06:00 22.65 kg/m2 [facility] [place] [facility] Systolic blood 2022-07-14 17:59:00 119 mm[Hg] Univer sity of pressure [place] [facility] Diastolic blood 2022-07-14 17:59:00 49 mm[Hg] Unive rsity of pressure [place] [facility] Heart rate 2022-07-14 17:59:00 73 /min [facility] [place] [facility] Body temperature 2022-07-14 17:59:00 36.39 Althea [facility] [place] [facility] Respiratory rate 2022-07-14 17:59:00 18 /min [facility] [place] [facility] Oxygen saturation in 2022-07-14 17:59:00 98 /min University of Arterial blood by [facility] Pulse oximetry Branch Body weight 2022-07-14 09:57:00 71.986 kg [facility] [place] [facility] BMI 2022-07-14 09:57:00 21.52 kg/m2 [facility] [place] [facility] Body height 2022-07-14 03:07:00 182.9 cm [facility] [place] [facility] Systolic blood 2022-06-09 05:00:00 157 mm[Hg] Univer sity of pressure [place] [facility] Diastolic blood 2022-06-09 05:00:00 74 mm[Hg] Unive rsity of pressure [place] [facility] Heart rate 2022-06-09 05:00:00 68 /min [facility] [place] [facility] Respiratory rate 2022-06-09 05:00:00 17 /min Univ [facility] [place] [facility] Oxygen saturation in 2022-06-09 05:00:00 99 /min University of Arterial blood by [employer] Pulse oximetry Branch Body temperature 2022-06-09 03:48:00 36.5 Althea [facility] [place] [facility] Body height 2022-06-09 03:48:00 182.9 cm [facility] [place] [facility] Body weight 2022-06-09 03:48:00 74.844 kg [facility] [place] [facility] BMI 2022-06-09 03:48:00 22.38 kg/m2 [facility] [place] [facility] Systolic blood 2022-05-02 15:14:00 129 mm[Hg] Univer sity of pressure [place] [facility] Diastolic blood 2022-05-02 15:14:00 50 mm[Hg] Unive rsity of pressure [place] [facility] Heart rate 2022-05-02 15:14:00 71 /min [facility] [place] [facility] Body temperature 2022-05-02 15:14:00 36.56 Althea [facility] [place] [facility] Respiratory rate 2022-05-02 15:14:00 16 /min [facility] [place] [facility] Oxygen saturation in 2022-05-02 15:14:00 96 /min University of Arterial blood by [employer] Pulse oximetry Branch Body weight 2022-05-01 16:34:00 72.8 kg [facility] [place] [facility] BMI 2022-05-01 16:34:00 21.77 kg/m2 [facility] [place] [facility] Body height 2022-04-26 06:47:00 182.9 cm [facility] [place] [facility] Systolic blood 2020-05-20 19:00:00 175 mm[Hg] Univer sity of pressure [facility] Diastolic blood 2020-05-20 19:00:00 78 mm[facility]Hg[facility] Heart rate 2020-05-20 19:00:00 68 /min [facility] Respiratory rate 2020-05-20 19:00:00 18 /min [facility] Oxygen saturation in 2020-05-20 19:00:00 99 /min [facility] Arterial blood by [facility] Pulse oximetry [place] Body temperature 2020-05-20 17:34:00 37.33 Althea [facility] Body weight 2020-05-20 17:34:00 85.276 kg [facility] BMI 2020-05-20 17:34:00 25.50 kg/m2 [facility] Procedures Procedure Date / Time Performing Clinician Source Performed HB ECG ROUTINE & RHYTHM 2022-10-11 12:40:56 Randee Steve [facility] [place] TROPONIN I 2022-10-11 10:45:00 Zachary [facility] BASIC METABOLIC PANEL 2022-10-11 10:45:00 Randee Steve [facility] (NA, K, CL, CO2, GLUCOSE, Medica l Branch BUN, CREATININE, CA) CBC WITH DIFF 2022-10-11 10:45[facility] 2022-10-11 06:36:59 [facility] HEPATITIS B SURFACE 2022-10-10 19:10:00 Rosa M Ruth [facility] ANTIBODY [facility] HEPATITIS B SURFACE 2022-10-10 19:10:00 Rosa M Ruth [facility] ANTIGEN [facility] MRSA / MSSA SCREEN BY 2022-10-10 10:35:00 Rosa M Ruth [facility] PCR, NARES Medical Branch PHOSPHORUS 2022-10-10 10:32:00 Randee Steve [facility] MAGNESIUM 2022-10-10 10:32:00 Zachary [facility] BASIC METABOLIC PANEL 2022-10-10 10:32:00 Randee Steve [facility] Alicey [facility] (NA, K, CL, CO2, GLUCOSE, Medica l Branch BUN, CREATININE, CA) CBC WITH DIFF 2022-10-10 10:32:00 Zachary [facility] XR ABDOMEN 2 VW 2022-10-09 13:43:22 [facility] PHOSPHORUS 2022-10-09 13:18:00 [facility] LIPASE 2022-10-09 13:18:00 Zachary [facility] MAGNESIUM 2022-10-09 13:18:00 [facility] TROPONIN I 2022-10-09 13:18:00 [facility] FREE T4 2022-10-09 13:18:00 Zachary [facility] THYROID STIMULATING 2022-10-09 13:18:00 Randee Steve [facility] HORMONE [facility] Branch COMP. METABOLIC PANEL 2022-10-09 13:18:00 Macario Diaz [facility] ([id number]) [facility] CBC WITH DIFF 2022-10-09 13:18:00 [facility] CONSENT/REFUSAL FOR 2022-10-09 12:48:55 Doctor Unassigned, No Un [facility] DIAGNOSIS AND TREATMENT Name [facility] COMP. METABOLIC PANEL 2022-10-08 05:01:00 [id number] CBC WITH DIFF 2022-10-08 05:01:00 Rianna Gomez [facility] NOTICE OF PRIVACY 2022-10-08 04:06:01 Doctor Unassigned, No [facility] PRACTICES Name [facility] CONSENT/REFUSAL FOR 2022-10-08 04:05:24 [facility]igned, [facility] Name Medical Branch LIPASE 2022-07-30 05:24:00 Ivania Mehta [facility] TROPONIN I 2022-07-30 05:24:00 Ivania Mehta [facility] COMP. METABOLIC PANEL 2022-07-30 05:24:00 Ivania Mehta [facility] ([id number]) Medical Branch XR CHEST 1 VW 2022-07-30 05:10:00 Ivania Mehta [facility] CT HEAD WO CONTRAST 2022-07-30 04:45:00 Ivania Mehta [facility] EKG-12 LEAD 2022-07-30 04:26:37 Ivania Mehta [facility] CBC WITH DIFF 2022-07-30 04:24:00 Ivania Mehta [facility] RAPID INFLUENZA A/B 2022-07-30 04:24:00 Ivania Mehta [facility] RAPID RSV 2022-07-30 04:24:00 Ivania Mehta [facility] COVID-19 (ID NOW RAPID 2022-07-30 04:24:00 Ivania Mehta [facility] TESTING) Medical Branch BASIC METABOLIC PANEL 2022-07-14 10:39:00 [facility] (NA, K, CL, CO2, GLUCOSE, Medica l Branch BUN, CREATININE, CA) CBC WITH DIFF 2022-07-14 10:39:00 [facility] RAPID STREP SCREEN FOR 2022-07-14 10:39:00 Wyatt [facility] GROUP A [facility] Branch RESPIRATORY PANEL BY PCR 2022-07-14 10:39:00 Carlton Schneider [facility] XR CHEST 1 VW 2022-07-13 23:39:58 Darrel Trinh [facility] LACTIC ACID WHOLE BLOOD 2022-07-13 22:44:00 Darrel Trinh [facility] BLOOD CULTURE SCREEN 2022-07-13 22:43:00 Darrel Trinh [facility] LIPASE 2022-07-13 22:43:00 Darrel Trinh [facility] MAGNESIUM 2022-07-13 22:43:00 Darrel Trinh [facility] TROPONIN I 2022-07-13 22:43:00 Darrel Trinh [facility] COMP. METABOLIC PANEL 2022-07-13 22:43:00 Darrel Trinh [facility] ([id number]) Medical Branch CBC WITH DIFF 2022-07-13 22:43:00 Darrel Trinh [facility] PROTHROMBIN TIME / INR 2022-07-13 22:43:00 Darrel Trinh [facility] ACTIVATED PARTIAL 2022-07-13 22:43:00 Darrel Trinh [facility] THRMPLAS BIRDIE [facility] RAPID INFLUENZA A/B 2022-07-13 22:43:00 Darrel Trinh [facility] ty [facility] N-TERMINAL PRO-BNP 2022-07-13 22:43:00 Darrel Trinh [facility] COVID-19 (ID NOW RAPID 2022-07-13 22:43:00 Darrel Trinh [facility] TESTING) Medical Branch EKG-12 LEAD 2022-07-13 22:40:27 Darrel Trinh [facility] BASIC METABOLIC PANEL 2022-06-09 04:22:00 Aaliyah Sorto [facility] (NA, K, CL, CO2, GLUCOSE, Medica l Branch BUN, CREATININE, CA) CBC WITH DIFF 2022-06-09 04:22:00 Aaliyah Sorto [facility] NOTICE OF PRIVACY 2022-06-09 03:39:27 Doctor Unassigned, No Univ [facility] PRACTICES Name Medical Branch CONSENT/REFUSAL FOR 2022-06-09 03:38:52 Doctor Unassigned, No [facility] DIAGNOSIS AND TREATMENT Name Medical Branch XR KUB 2022-05-02 16:00:00 Steve Ramsay [facility] POCT GLUCOSE (AUTOMATED) 2022-05-02 15:17:00 Steve Ramsay [facility] POCT GLUCOSE (AUTOMATED) 2022-05-02 00:58:[address] [facility] [place] POCT GLUCOSE (AUTOMATED) 2022-05-01 17:40:00 Steve Ramsay [facility] POCT GLUCOSE (AUTOMATED) 2022-05-01 13:54:00 Steve Ramsay [facility] BASIC METABOLIC PANEL 2022-05-01 09:44:00 Amy [facility] (NA, K, CL, CO2, GLUCOSE, Medica l Branch BUN, CREATININE, CA) CBC WITH DIFF 2022-05-01 09:44:00 Amy [facility] POCT GLUCOSE (AUTOMATED) 2022-05-01 02:55:00 Steve Ramsay [facility] POCT GLUCOSE (AUTOMATED) 2022-04-29 21:19:[address] [facility] [place] POCT GLUCOSE (AUTOMATED) 2022-04-29 16:28:[address] [facility] [place] PHOSPHORUS 2022-04-29 13:05:00 Zafra [facility] MAGNESIUM 2022-04-29 13:05:00 Zafar [facility] BASIC METABOLIC PANEL 2022-04-29 13:05:00 Zafar [facility] (NA, K, CL, CO2, GLUCOSE, Medica l Branch BUN, CREATININE, CA) CBC WITH DIFF 2022-04-29 13:05:00 Zafar [facility] POCT GLUCOSE (AUTOMATED) 2022-04-29 13:04:[address] [facility] [place] POCT GLUCOSE (AUTOMATED) 2022-04-29 00:56:[address] [facility] [place] POCT GLUCOSE (AUTOMATED) 2022-04-28 22:49:[address] [facility] [place] TRANSTHORACIC ECHO (TTE) 2022-04-28 20:08:00 ZafarDominik vazquez [facility] POCT GLUCOSE (AUTOMATED) 2022-04-28 17:16:[address] [facility] [place] POCT GLUCOSE (AUTOMATED) 2022-04-28 13:23:[address] [facility] [place] MAGNESIUM 2022-04-28 07:20:00 Dennis [facility] BASIC METABOLIC PANEL 2022-04-28 07:20:00 Agraharkar, [facility] (NA, K, CL, CO2, GLUCOSE, Medica l Branch BUN, CREATININE, CA) CBC WITH DIFF 2022-04-28 07:20:00 Kadeem Collins [facility] MAGNESIUM 2022-04-27 22:09:00 [facility] 2022-04-27 22:09[facility]00 [facility] ([facility], K, CL, CO2, GLUCOSE, Medica l Branch BUN, CREATININE, CA) CBC WITH DIFF 2022-04-27 22:09:00 Zafar [facility] PREPARE PACKED RBC 2022-04-27 18:47:23 Zafar [facility] ABORH CONFIRMATION (LAB 2022-04-27 15:09:00 Marielle [facility] ONLY) [facility] HB ABO GROUPING 2022-04-27 13:35:00 Marielle Stanley [facility] PHOSPHORUS 2022-04-27 11:24:00 Mindy [facility] MAGNESIUM 2022-04-27 11:24:00 Mindy [facility] THYROID STIMULATING 2022-04-27 11:24:00 Dominik Stephen [facility] HORMONE [facility] BASIC METABOLIC PANEL 2022-04-27 11:24:00 Radha Guillen [facility] (NA, K, CL, CO2, GLUCOSE, Medica l Branch BUN, CREATININE, CA) CBC WITH DIFF 2022-04-27 11:24:00 Mindy [facility] XR CHEST 1 VW 2022-04-27 11:15:00 Mindy [facility] POCT GLUCOSE (AUTOMATED) 2022-04-27 09:29:00 Gianluca Alba [facility] PHOSPHORUS 2022-04-27 05:38:00 Anjali [facility] MAGNESIUM 2022-04-27 05:38:00 Anjali [facility] BASIC METABOLIC PANEL 2022-04-27 05:38:00 Stanley Patiño [facility] (NA, K, CL, CO2, GLUCOSE, Medica l Branch BUN, CREATININE, CA) CBC WITH DIFF 2022-04-27 05:38:00 Gianluca Alba f [facility] POCT GLUCOSE (AUTOMATED) 2022-04-27 03:49:00 Moulin, Gianluca [facility] ([facility]OMATED) 2022-04-26 23:28:00 Moulin, Gianluca [facility] POCT GLUCOSE (AUTOMATED) 2022-04-26 23:06:00 Moulin, Gianluca [facility] POCT GLUCOSE (AUTOMATED) 2022-04-26 22:49:00 Moulin, Gianluca [facility] POCT GLUCOSE (AUTOMATED) 2022-04-26 22:34:00 Moulin, Gianluca [facility] PHOSPHORUS 2022-04-26 20:11:00 Mindy [facility] MAGNESIUM 2022-04-26 20:11:00 Mindy [facility] BASIC METABOLIC PANEL 2022-04-26 20:11:00 Radha Guillen [facility] (NA, K, CL, CO2, GLUCOSE, Medica l Branch BUN, CREATININE, CA) CBC WITH DIFF 2022-04-26 20:11:00 Mindy [facility] MRSA / MSSA SCREEN BY 2022-04-26 20:11:00 [facility] POCT GLUCOSE (AUTOMATED) 2022-04-26 16:41:[address] [facility] [place] HEPATITIS B SURFACE 2022-04-26 15:50:00 Stanley Patiño [facility] ANTIBODY [facility] HEPATITIS B SURFACE 2022-04-26 15:50:00 Stanley Patiño [facility] ANTIGEN [facility] POCT GLUCOSE (AUTOMATED) 2022-04-26 11:51:[address] [facility] [place] BASIC METABOLIC PANEL 2022-04-26 09:41:00 Aaliyah Sorto [facility] (NA, K, CL, CO2, GLUCOSE, Medica l Branch BUN, CREATININE, CA) POCT GLUCOSE(AGE >30DAYS) 2022-04-26 09:41:00 Aaliyah Sorto [facility] POCT GLUCOSE (AUTOMATED) 2022-04-26 09:37:00 [facility] 2022-04-26 08:04:00 Aaliyah Sorto [facility] GAS [facility] POCT GLUCOSE (AUTOMATED) 2022-04-26 07:48:00 [facility] PO[facility] GLUCOSE(AGE >30DAYS) 2022-04-26 07:47:00 Aaliyah Sorto [facility] HB ECG ROUTINE & RHYTHM 2022-04-26 07:40:27 Aaliyah Sorto [facility] XR CHEST 1 VW 2022-04-26 07:19:00 Aaliyah Sorto [facility] LIPASE 2022-04-26 06:55:00 Aaliyah Sorto [facility] TROPONIN I 2022-04-26 06:55:00 Aaliyah Sorto [facility] COMP. METABOLIC PANEL 2022-04-26 06:55:00 Aaliyah Sorto [facility] ([id number]) [facility] CBC WITH DIFF 2022-04-26 06:55:00 Aaliyah Sorto [facility] GLYCOSYLATED HEMOGLOBIN 2022-04-26 06:55:00 Sampson Sparks [facility] (A1C) [facility] RAPID INFLUENZA A/B 2022-04-26 06:55:00 Aaliyah Sorto [facility] N-TERMINAL PRO-BNP 2022-04-26 06:55:00 aAliyah Sorto [facility] COVID-19 (ID NOW RAPID 2022-04-26 06:55:00 Aaliyah Sorto [facility] TESTING) Medical Branch LAB ONLY COVID 2022-04-26 06:55:00 Aaliyah Sorto [facility] INTERPRETATION Medical Branch EKG-12 LEAD 2022-04-26 06:53:29 Aaliyah Sorto [facility] EMERGENCY DEPARTMENT 2022-04-26 05:01:00 Doctor Unassigned, No [facility] [place] [facility] HOSPITAL ADMISSION 2022-04-26 05:01:00 Doctor Unassigned, No [facility] [facility] CT CERVICAL SPINE WO 2020-05-20 18:51:43 Gina Cotton [facility] [place] CONTRAST [facility] Branch CT HEAD WO CONTRAST 2020-05-20 18:51:43 [facility]REFUSAL FOR 2020-05-20 17:26:43 Doctor Unassigned, No Un [facility] [place] DIAG[facility] TREAT[facility] NOTICE OF PRIVACY 2020-05-20 17:26:25 Doctor Unassigned, No Univ [facility] [place] PRACTICES [facility] Plan of Care Planned Activity Planned Date Details Comments Source Future Scheduled 2022-10-14 COVID-19 VACCINE (#1) [facility] Hospital Test 09:22:18 [code = COVID-19 VACCINE (#1)] Future Scheduled 2022-10-14 SHINGLES VACCINES (1 Met [facility] Test 09:22:18 of 2) [code = SHINGLES VACCINES (1 of 2)] Future Scheduled 2022-10-14 65+ PNEUMOCOCCAL Methodi Hospital Test 09:22:18 VACCINE (1 - PCV) [code = 65+ PNEUMOCOCCAL VACCINE (1 - PCV)] Future Scheduled 2022-10-14 INFLUENZA VACCINE Method [facility] Hospital Test 09:22:18 [code = INFLUENZA VACCINE] Future Scheduled 2022-05-20 HEPATITIS B VACCINES Met [facility] Test 12:12:16 (1 of 3 - 3-dose series) [code = HEPATITIS B VACCINES (1 of 3 - 3-dose series)] Future Scheduled 2022-05-20 COVID-19 VACCINE (#1) [facility] Hospital Test 12:12:16 [code = COVID-19 VACCINE (#1)] Future Scheduled 2022-05-20 65+ PNEUMOCOCCAL [facility] Hospital Test 12:12:16 VACCINE (1 - PCV) [code = 65+ PNEUMOCOCCAL VACCINE (1 - PCV)] Future Scheduled 2022-05-20 DIABETES: RETINAL EYE Me [facility] Test 12:12:16 EXAM [code = DIABETES: RETINAL EYE EXAM] Future Scheduled 2022-05-20 DIABETIC FOOT EXAM [facility] Hospital Test 12:12:16 [code = DIABETIC FOOT EXAM] Future Scheduled 2022-05-20 [facility] Test 12:12:16 [code = URINE MICROALBUMIN] Future Scheduled 2022-05-20 Hepatitis C screening [facility] Hospital Test 12:12:16 (procedure) [code = 593077754] Future Scheduled 2022-05-20 SHINGLES VACCINES (1 Met [facility] Hospital Test 12:12:16 of 2) [code = SHINGLES VACCINES (1 of 2)] Future Scheduled 2022-05-20 INFLUENZA VACCINE Method ist Hospital Test 12:12:16 [code = INFLUENZA VACCINE] Encounters Start End Encounter Admission Attending Care Care Encounter Source Date/Time Date/Time Type Type Clinicians Facility Department ID 2021-05-30 Emergency [facility] [id number] Univers 23:43:30 ity [facility] 2022-10-13 2022-10-13 Transition TARA Armstrong 1.2.840.114 [id number] Univers 00:00:00 00:00:00 of Care Rosaline PFEIFFER 350.1.13.10 it y of [place] 4.2.7.2.686 [facility] [phone] [facility] 403 Branch 2022-10-09 2022-10-11 Outpatient X ZACHARY [facility] [place] [id number] Univers 06:40:00 15:14:00 RANDEE ity [facility] 2022-10-09 2022-10-11 Emergency Joe, Macario [facility] 1.2.840 .114 [id number] Univers 06:40:00 15:14:00 Randee Steve 350.1.13.10 ity [facility] 4.2.7.2.686 [facility] [id number] [facility] 081 Branch 2022-10-07 2022-10-08 Emergency X JASON [facility] ERT [id number] Univers 22:08:00 02:30:00 CHRISTOPHER it y of [facility] 2022-10-07 2022-10-08 Emergency Boyden, [facility] [id number] [id number] Univers 22:08:00 02:30:00 Edinchaparrita MARCUS 350.1.13.10 ity [place] [facility] [place] [id number] [facility] 084 Branch 2022-07-29 2022-07-30 Emergency [facility] [id number] Univers 22:02:00 00:48:00 IVANIA ity [facility] 2022-07-29 2022-07-30 Emergency [facility] [id number] Univers 22:02:00 00:48:00 Ivania Phu VELAZQUEZ 350.1.13.10 ity [place] [facility] [place] [id number] [place] [address] Branch 2022-07-15 2022-07-15 Transition TARA Noel 1.2.840.114 [id number] Univers 00:00:00 00:00:00 of Care Quyen JANEY 350.1.13.10 i [place] [id number] [facility] 403 Branch 2022-07-13 2022-07-14 [facility]patient [facility] [id number] Univers 16:33:00 18:12:00 CARLTON ity [facility] 2022-07-13 2022-07-14 [facility] Darrel Trinh [facility] 1.2.840.1 14 [id number] Univers 16:33:00 18:12:00 Encounter Carlton Schneider MARCUS 350.1.13.10 ity of [place] 4[place] [id number] [place] [address] Branch 2022-06-08 2022-06-09 Emergency X JOSE [facility] ERT [id number] Univers 21:55:00 01:36:00 AALIYAH ity [facility] 2022-06-08 2022-06-09 Emergency [facility] [id number] Univers 21:55:00 01:36:00 Aaliyah VELAZQUEZ 350.1.13.10 ity of [place] 4.2.7.2.686 [facility] [id number] [facility] 084 Branch 2022-05-04 2022-05-04 Transition TARA Armstrong 1.2.840.114 [id number] Univers 00:00:00 00:00:00 of Raissa JANEY 350.1.13.10 it y of [place] 4.2.7.2.686 [facility] [id number] [facility] 403 Branch 2022-04-26 2022-05-02 Inpatient U AMY [facility] [place] [id number] Univers 01:43:00 15:39:00 STEVE ity of [facility] 2022-04-26 2022-05-02 Hospital Gianluca Alba [facility] 1.2.840.11 4 [id number] Univers 01:43:00 15:39:00 [facility] 350.1.13.10 ity of Amy, Steve CLEAR 4.2.7.2.686 [facility] [id number] [facility] 113 Branch (CLC) 2020-11-07 2020-11-07 Outpatient Ilan LIVINGSTON [facility] [id number] Univers 16:00:00 16:00:00 ZURDO ity of [facility] 2020-11-07 2020-11-07 Outpatient [facility] [id number] Univers 09:30:00 09:30:[address] [facility] 2020-10-16 2020-10-16 Outpatient [facility] [id number] Univers 09:30:00 09:30:[address] [facility] 2020-05-20 2020-05-20 Emergency [facility] 1.2.840.114 [id number] Univers 12:30:00 14:38:00 Gina Velazquez 350.1.13.10 ity of [place] 4.2.7.2.686 [facility] [id number] [address] 2019-08-07 2019-08-07 Outpatient BALTAZAR [facility] [id number] [place] [address] 00:00:00 00:00:00 ARABELLA [address] Results Test Description Test Time Test Comments Results Result Comments Source Hepatitis B Surface Antibody (HBsAb) 2022-10-11 05:11:30 Test Item Value Reference Range Interpretation Comme nts HBsAB (test code = 6040096500) Positive HBsAb Semi-Quantitative (test code = 45.90 mIU/mL 0062539197) TAMARA (test code = TAMARA) Interpretation: ?Hepatitis B Surface Antibody ? Negative - Patient is considered to be not immune to infection with HBV. ? ? Positive - Anti-HBs detected at greater than or equal to 12 mIU/mL. ?Patient is considered to be immune to infection with HBV. ? [facility]2022-10-10 23:31:12 Test Item Value Reference Range Interpretation Comments HBsAg Semi-Quantitative (test code = 0.08 Negative 5195-3) [facility] [id number] 11:30:53 Test Item Value Reference Range Interpretation Comments WBC (test code = 6.66 See_Comment [Automated 6690-2) message] The sy stem which generated this result transmitted reference range : 4.20 - 10.70 10*3/?L. The reference range was not used to interpret this result as normal/abnormal . RBC (test code = 3.35 See_Comment L [Automated 979-8) message] The sy stem which generated this result transmitted reference range : 4.26 - 5.52 10*6/?L. The reference range was not used to interpret this result as normal/abnormal . HGB (test code = 9.8 g/dL 12.2-16.4 L 718-7) HCT (test code = 31.6 % 38.4-49.3 L 4544-3) MCV (test code = 94.3 fL 81.7-95.6 787-2) MCH (test code = 29.3 pg 26.1-32.7 785-6) MCHC (test code = 31.0 g/dL 31.2-35.0 L 786-4) RDW-SD (test code = 69.0 fL 38.5-51.6 H 99004-1) RDW-CV (test code = 20.6 % 12.1-15.4 H 788-0) PLT (test code = 155 See_Comment [Automated 777-3) message] The sy stem which generated this result transmitted reference range : 150 - 328 10*3/ ?L. The reference r carroll was not used to interpret this result as normal/abnormal . MPV (test code = 11.9 fL 9.8-13.0 99461-4) NRBC/100 WBC (test 0.5 See_Comment [Automat ed code = 2472274664) message] The system which generated this result transmitted reference range : 0.0 - 10.0 /100 WBCs. The refer ence range was not u sed to interpret th is result as normal/abnormal . NRBC x10^3 (test code 0.03 See_Comment [Auto mated = 4668898041) message] The s ystem which generated this result transmitted reference range : 10*3/?L. The reference range was not used to interpret this result as normal/abnormal . GRAN MAT (NEUT) % 54.4 % (test code = 770-8) IMM GRAN % (test code 0.50 % = 4666832140) LYMPH % (test code = 35.9 % 736-9) MONO % (test code = 6.0 % 5905-5) EOS % (test code = 2.3 % 713-8) BASO % (test code = 0.9 % 706-2) GRAN MAT x10^3(ANC) 3.63 10*3/uL 1.99-6.95 (test code = 4827839852) IMM GRAN x10^3 (test 0.03 10*3/uL 0.00-0.06 code = 5016654567) LYMPH x10^3 (test code 2.39 10*3/uL 1.09-3.23 = 731-0) MONO x10^3 (test code 0.40 10*3/uL 0.36-1.02 = 742-7) EOS x10^3 (test code = 0.15 10*3/uL 0.06-0.53 711-2) BASO x10^3 (test code 0.06 10*3/uL 0.01-0.09 = 704-7) Lab Interpretation Abnormal (test code = 65493-6) [facility] [id number] 19:50:17 Test Item Value Reference Range Interpretation Comments TSH (test code = 3.64 See_Comment Biotin has been 5356040841) reported to cau se a negative bias, interpret resul ts relative to pat ient's use of biotin. [Automated mess age] The system [employer] generated this result transmitted ref erence range: 0.45 - 4 .70 mIU/L. The refe rence range was not u sed to interpret this result as normal/abnor mal. Lab Interpretation (test Normal code = 74477-6) [facility] [id number] 19:31:35 Test Item Value Reference Range Interpretation Comments FREE T4 (test code = 1.58 See_Comment [Autom ated message] 7264337541) The system [employer] generated this result transmitted ref erence range: 0.78 - 2 .20 ng/dL:. The ref erence range was not u sed to interpret this result as normal/abnor mal. Lab Interpretation (test Normal code = 36978-8) [facility] 16:01:13 Test Item Value Reference Range Interpretation Comments LIPASE (test code = 7916459985) 336 U/L 0-220 H Lab Interpretation (test code = Abnormal 68756-7) [facility] [id number] 14:32:17 Test Item Value Reference Range Interpretation Comments TROPONIN I (test code = 0.071 ng/mL <=0.034 H 1543279214) TAMARA (test code = TAMARA) Reference (Normal) Range (defined by the 99th percentile reference [...] biotin. Lab Interpretation Abnormal (test code = 15366-1) [facility]. METABOLIC PANEL (31057)2022-10-09 14:21:00 Test Item Value Reference Range Interpretation Comments NA (test code = 142 mmol/L 135-145 4355024045) K (test code = 4.9 mmol/L 3.5-5.0 1698889793) CL (test code = 101 mmol/L 98-108 6311827738) CO2 TOTAL (test code = 27 mmol/L 23-31 1993192105) AGAP (test code = 14 2-16 6449775183) BUN (test code = 56 mg/dL 7-23 H 0884401957) GLUCOSE (test code = 117 mg/dL 70-110 H 7085273773) CREATININE (test code = 6.62 mg/dL 0.60-1.25 H 1184767999) TOTAL BILI (test code = 0.8 mg/dL 0.1-1.8 3137671700) CALCIUM (test code = 8.3 mg/dL 8.6-10.6 L 2403908901) T PROTEIN (test code = 8.3 g/dL 6.3-8.2 H 7713298825) ALBUMIN (test code = 4.1 g/dL 3.5-5.0 8633380135) ALK PHOS (test code = 83 U/L 34-122 9808730695) ALTv (test code = 15 U/L 5-50 1742-6) AST(SGOT) (test code = 20 U/L 13-40 9267610934) eGFR (test code = 8.2 mL/min/1.73m2 3807141799) TAMARA (test code = TAMARA) Association of [...] tests). Lab Interpretation Abnormal (test code = 88013-4) [facility] 14:21:00 Test Item Value Reference Range Interpretation Comments MAGNESIUM (test code = 0196785038) 1.9 mg/dL 1.7-2.4 Lab Interpretation (test code = Normal 95554-4) [facility]2023-[facility]-10 14:20:39 Test Item Value Reference Range Interpretation Comments PHOSPHORUS (test code = 4443506957) 6.7 mg/dL 2.5-5.0 H Lab Interpretation (test code = Abnormal 69705-9) [facility] WITH [id number] 14:09:37 Test Item Value Reference Range Interpretation Comments WBC (test code = 6.79 See_Comment [Automated 3090-2) message] The sy stem which generated this result transmitted reference range : 4.20 - 10.70 10*3/?L. The reference range was not used to interpret this result as normal/abnormal . RBC (test code = 3.83 See_Comment L [Automated 406-8) message] The sy stem which generated this result transmitted reference range : 4.26 - 5.52 10*6/?L. The reference range was not used to interpret this result as normal/abnormal . HGB (test code = 11.1 g/dL 12.2-16.4 L 718-7) HCT (test code = 37.3 % 38.4-49.3 L 4544-3) MCV (test code = 97.4 fL 81.7-95.6 H 787-2) MCH (test code = 29.0 pg 26.1-32.7 785-6) MCHC (test code = 29.8 g/dL 31.2-35.0 L 786-4) RDW-SD (test code = 71.1 fL 38.5-51.6 H 50329-3) RDW-CV (test code = 20.2 % 12.1-15.4 H 788-0) PLT (test code = 149 See_Comment L [Automated 777-3) message] The sy stem which generated this result transmitted reference range : 150 - 328 10*3/ ?L. The reference r carroll was not used to interpret this result as normal/abnormal . MPV (test code = 12.6 fL 9.8-13.0 75424-8) IPF % (test code = 6.6 % 1.2-10.7 Platelet count 1390386615) measured by fluorescence method. NRBC/100 WBC (test 0.3 See_Comment [Automat ed code = 8790634905) message] The system which generated this result transmitted reference range : 0.0 - 10.0 /100 WBCs. The refer ence range was not u sed to interpret th is result as normal/abnormal . NRBC x10^3 (test code 0.02 See_Comment [Auto mated = 4065383387) message] The s ystem which generated this result transmitted reference range : 10*3/?L. The reference range was not used to interpret this result as normal/abnormal . GRAN MAT (NEUT) % 61.6 % (test code = 770-8) IMM GRAN % (test code 0.60 % = 2837939516) LYMPH % (test code = 26.2 % 736-9) MONO % (test code = 8.2 % 5905-5) EOS % (test code = 2.8 % 713-8) BASO % (test code = 0.6 % 706-2) GRAN MAT x10^3(ANC) 4.18 10*3/uL 1.99-6.95 (test code = 1250390406) IMM GRAN x10^3 (test 0.04 10*3/uL 0.00-0.06 code = 5778223259) LYMPH x10^3 (test code 1.78 10*3/uL 1.09-3.23 = 731-0) MONO x10^3 (test code 0.56 10*3/uL 0.36-1.02 = 742-7) EOS x10^3 (test code = 0.19 10*3/uL 0.06-0.53 711-2) BASO x10^3 (test code 0.04 10*3/uL 0.01-0.09 = 704-7) Lab Interpretation Abnormal (test code = 00241-4) [facility] WITH [id number] 06:13:11 Test Item Value Reference Range Interpretation Comments WBC (test code = 6.48 See_Comment [Automated 6690-2) message] The sy stem which generated this result transmitted reference range : 4.20 - 10.70 10*3/?L. The reference range was not used to interpret this result as normal/abnormal . RBC (test code = 3.74 See_Comment L [Automated 789-8) message] The sy stem which generated this result transmitted reference range : 4.26 - 5.52 10*6/?L. The reference range was not used to interpret this result as normal/abnormal . HGB (test code = 10.5 g/dL 12.2-16.4 L 718-7) HCT (test code = 35.2 % 38.4-49.3 L 4544-3) MCV (test code = 94.1 fL 81.7-95.6 787-2) MCH (test code = 28.1 pg 26.1-32.7 785-6) MCHC (test code = 29.8 g/dL 31.2-35.0 L 786-4) RDW-SD (test code = 67.6 fL 38.5-51.6 H 02118-3) RDW-CV (test code = 19.7 % 12.1-15.4 H 788-0) PLT (test code = 109 See_Comment L [Automated 777-3) message] The sy stem which generated this result transmitted reference range : 150 - 328 10*3/ ?L. The reference r carroll was not used to interpret this result as normal/abnormal . MPV (test code = 12.4 fL 9.8-13.0 45560-2) IPF % (test code = 6.7 % 1.2-10.7 Platelet count 2185731542) measured by fluorescence method. NRBC/100 WBC (test 0.0 See_Comment [Automat ed code = 7323131556) message] The system which generated this result transmitted reference range : 0.0 - 10.0 /100 WBCs. The refer ence range was not u sed to interpret th is result as normal/abnormal . NRBC x10^3 (test code See_Comment [Auto mated = 9001213045) message] The s ystem which generated this result transmitted reference range : 10*3/?L. The reference range was not used to interpret this result as normal/abnormal . GRAN MAT (NEUT) % 61.3 % (test code = 770-8) IMM GRAN % (test code 0.50 % = 2453037248) LYMPH % (test code = 25.8 % 736-9) MONO % (test code = 9.0 % 5905-5) EOS % (test code = 2.8 % 713-8) BASO % (test code = 0.6 % 706-2) GRAN MAT x10^3(ANC) 3.98 10*3/uL 1.99-6.95 (test code = 5522741739) IMM GRAN x10^3 (test 0.03 10*3/uL 0.00-0.06 code = 6030801022) LYMPH x10^3 (test code 1.67 10*3/uL 1.09-3.23 = 731-0) MONO x10^3 (test code 0.58 10*3/uL 0.36-1.02 = 742-7) EOS x10^3 (test code = 0.18 10*3/uL 0.06-0.53 711-2) BASO x10^3 (test code 0.04 10*3/uL 0.01-0.09 = 704-7) Lab Interpretation Abnormal (test code = 61574-1) [facility]. METABOLIC PANEL (58774)2022-10-08 05:26:45 Test Item Value Reference Range Interpretation Comments NA (test code = 138 mmol/L 135-145 7537795346) K (test code = 4.1 mmol/L 3.5-5.0 9296748510) CL (test code = 100 mmol/L 98-108 8090610575) CO2 TOTAL (test code = 29 mmol/L 23-31 6160478316) AGAP (test code = 9 2-16 7573339556) BUN (test code = 31 mg/dL 7-23 H 9511672086) GLUCOSE (test code = 103 mg/dL 70-110 6705569967) CREATININE (test code = 4.25 mg/dL 0.60-1.25 H 2348795081) TOTAL BILI (test code = 0.9 mg/dL 0.1-1.6 3154862765) CALCIUM (test code = 8.2 mg/dL 8.6-10.6 L 8902494216) T PROTEIN (test code = 7.7 g/dL 6.3-8.2 4200050511) ALBUMIN (test code = 3.6 g/dL 3.5-5.0 1207289640) ALK PHOS (test code = 72 U/L 34-122 4557597231) ALTv (test code = 15 U/L 5-50 1742-6) AST(SGOT) (test code = 17 U/L 13-40 5202683800) eGFR (test code = 13.6 mL/min/1.73m2 7334146413) TAMARA (test code = TAMARA) Association of [...] tests). Lab Interpretation Abnormal (test code = 44009-6) [facility] [id number] 06:03:10 Test Item Value Reference Interpretation Comments Range TROPONIN I (test 0.072 ng/mL See_Comment H [Automated code = 4098164932) message] The system which generated this result [...] biotin. Lab Interpretation Abnormal (test code = 53512-6) [facility]OLIC PANEL (85471)2022-07-30 05:51:28 Test Item Value Reference Range Interpretation Comments NA (test code = 138 mmol/L 135-145 2082850783) K (test code = 4.4 mmol/L 3.5-5.0 2202777381) CL (test code = 98 mmol/L 98-108 8531095584) CO2 TOTAL (test code = 33 mmol/L 23-31 H 9614855156) AGAP (test code = 2-16 0674059545) BUN (test code = 35 mg/dL 7-23 H 1442795036) GLUCOSE (test code = 87 mg/dL 70-110 3507504134) CREATININE (test code = 4.56 mg/dL 0.60-1.25 H 0252082632) TOTAL BILI (test code = 0.8 mg/dL 0.1-1.8 7087622544) CALCIUM (test code = 7.7 mg/dL 8.6-10.6 L 1274351245) T PROTEIN (test code = 7.5 g/dL 6.3-8.2 3902460935) ALBUMIN (test code = 3.3 g/dL 3.5-5.0 L 3014767107) ALK PHOS (test code = 78 U/L 34-122 0541682565) ALTv (test code = 16 U/L 5-50 1742-6) AST(SGOT) (test code = 27 U/L 13-40 3276210852) eGFR (test code = mL/min/1.73m2 2026359097) TAMARA (test code = TAMARA) Association of [...] tests). Lab Interpretation Abnormal (test code = 59930-0) [facility] 05:51:07 Test Item Value Reference Range Interpretation Comments LIPASE (test code = 7912182418) 126 U/L 0-220 Lab Interpretation (test code = Normal 48222-3) [facility] [id number] 04:48:28 Test Item Value Reference Range Interpretation Comments [...] as normal/abnormal . HGB (test code = 10.3 g/dL 12.2-16.4 L 718-7) HCT (test code = 34.7 % 38.4-49.3 L 4544-3) MCV (test code = 90.8 fL 81.7-95.6 787-2) MCH (test code = 27.0 pg 26.1-32.7 785-6) MCHC (test code = 29.7 g/dL 31.2-35.0 L 786-4) RDW-SD (test code = 61.8 fL 38.5-51.6 H 64729-4) RDW-CV (test code = 18.7 % 12.1-15.4 H 788-0) PLT (test code = See_Comment [Automated 777-3) message] The sy stem which generated this result transmitted reference range : 150 - 328 10*3/ ?L. The reference r carroll was not used to interpret this result as normal/abnormal . MPV (test code = 11.4 fL 9.8-13.0 28962-2) NRBC/100 WBC (test See_Comment [Automat ed code = 9887294381) message] The system which generated this result transmitted reference range : 0.0 - 10.0 /100 WBCs. The refer ence range was not u sed to interpret th is result as normal/abnormal . NRBC x10^3 (test code See_Comment [Auto mated = 6254800761) message] The s ystem which generated this result transmitted reference range : 10*3/?L. The reference range was not used to interpret this result as normal/abnormal . GRAN MAT (NEUT) % 67.3 % (test code = 770-8) IMM GRAN % (test code 0.80 % = 2378850742) LYMPH % (test code = 21.7 % 736-9) MONO % (test code = 7.9 % 5905-5) EOS % (test code = 1.7 % 713-8) BASO % (test code = 0.6 % 706-2) GRAN MAT x10^3(ANC) 5.19 10*3/uL 1.99-6.95 (test code = 8343861862) IMM GRAN x10^3 (test 0.06 10*3/uL 0.00-0.06 code = 0180759148) LYMPH x10^3 (test code 1.67 10*3/uL 1.09-3.23 = 731-0) MONO x10^3 (test code 0.61 10*3/uL 0.36-1.02 = 742-7) EOS x10^3 (test code = 0.13 10*3/uL 0.06-0.53 711-2) BASO x10^3 (test code 0.05 10*3/uL 0.01-0.09 = 704-7) Lab Interpretation Abnormal (test code = 13045-3) [facility] [place] [place] Metabolic Panel (NA, K, CL, CO2, GLUCOSE, BUN, CREATININE, CA)2022-07-14 12:37:43 Test Item Value Reference Range Interpretation Comments NA (test code = 141 mmol/L 135-145 6323198487) K (test code = 4.7 mmol/L 3.5-5.0 2555582920) CL (test code = 98 mmol/L 98-108 9859403083) CO2 TOTAL (test code = 34 mmol/L 23-31 H 2343267501) AGAP (test code = 2-16 6790489314) BUN (test code = 41 mg/dL 7-23 H 8448897867) GLUCOSE (test code = 80 mg/dL 70-110 4592491946) CREATININE (test code = 5.92 mg/dL 0.60-1.25 H 5544223186) CALCIUM (test code = 7.4 mg/dL 8.6-10.6 L 1465274486) eGFR (test code = mL/min/1.73m2 7649171927) TAMARA (test code = TAMARA) Association of [...] tests). Lab Interpretation Abnormal (test code = 71982-6) [facility] with [id number] 11:21:54 Test Item Value Reference Range Interpretation Comments WBC (test code = See_Comment [Automated 7411-2) message] The sy stem which generated this [...] as normal/abnormal . HGB (test code = 10.2 g/dL 12.2-16.4 L 718-7) HCT (test code = 34.3 % 38.4-49.3 L 4544-3) MCV (test code = 92.5 fL 81.7-95.6 787-2) MCH (test code = 27.5 pg 26.1-32.7 785-6) MCHC (test code = 29.7 g/dL 31.2-35.0 L 786-4) RDW-SD (test code = 60.0 fL 38.5-51.6 H 28163-2) RDW-CV (test code = 17.4 % 12.1-15.4 H 788-0) PLT (test code = See_Comment [Automated 777-3) message] The sy stem which generated this result transmitted reference range : 150 - 328 10*3/ ?L. The reference r carroll was not used to interpret this result as normal/abnormal . MPV (test code = 12.0 fL 9.8-13.0 72754-1) NRBC/100 WBC (test See_Comment [Automat ed code = [id number]) message] The system which generated this result transmitted reference range : 0.0 - 10.0 /100 WBCs. The refer ence range was not u sed to interpret th is result as normal/abnormal . NRBC x10^3 (test code See_Comment [Auto mated = [id number]) message] The s ystem which generated this result transmitted reference range : 10*3/?L. The reference range was not used to interpret this result as normal/abnormal . GRAN MAT (NEUT) % 56.7 % (test code = 770-8) IMM GRAN % (test code 0.80 % = 1344409808) LYMPH % (test code = 27.0 % 736-9) MONO % (test code = 11.8 % 5905-5) EOS % (test code = 2.9 % 713-8) BASO % (test code = 0.8 % 706-2) GRAN MAT x10^3(ANC) 2.92 10*3/uL 1.99-6.95 (test code = 3952724181) IMM GRAN x10^3 (test 0.04 10*3/uL 0.00-0.06 code = 3054552160) LYMPH x10^3 (test code 1.39 10*3/uL 1.09-3.23 = 731-0) MONO x10^3 (test code 0.61 10*3/uL 0.36-1.02 = 742-7) EOS x10^3 (test code = 0.15 10*3/uL 0.06-0.53 711-2) BASO x10^3 (test code 0.04 10*3/uL 0.01-0.09 = 704-7) Lab Interpretation Abnormal (test code = 36235-7) [facility] METABOLIC PANEL (NA, K, CL, CO2, GLUCOSE, BUN, CREATININE, CA)2022-06-09 04:48:27 Test Item Value Reference Range Interpretation Comments NA (test code = 139 mmol/L 135-145 6760538264) K (test code = 5.6 mmol/L 3.5-5.0 H 1242832301) CL (test code = 101 mmol/L 98-108 6796089935) CO2 TOTAL (test code = 29 mmol/L 23-31 9626421848) AGAP (test code = 2-16 0019446811) BUN (test code = 44 mg/dL 7-23 H 4186331237) GLUCOSE (test code = 76 mg/dL 70-110 7003328306) CREATININE (test code = 5.68 mg/dL 0.60-1.25 H 1169174934) CALCIUM (test code = 8.2 mg/dL 8.6-10.6 L 4168085256) eGFR (test code = mL/min/1.73m2 7066152673) TAMARA (test code = TAMARA) Association of [...] tests). Lab Interpretation Abnormal (test code = 72356-2) [facility] WITH [id number] 04:34:03 Test Item Value Reference Range Interpretation Comments WBC (test code = See_Comment [Automated 4981-2) message] The sy stem which generated this result transmitted reference range : 4.20 - 10.70 10*3/?L. The reference range was not used to interpret this result as normal/abnormal . RBC (test code = See_Comment L [Automated 999-8) message] The sy stem which generated this result transmitted reference range : 4.26 - 5.52 10*6/?L. The reference range was not used to interpret this result as normal/abnormal . HGB (test code = 9.7 g/dL 12.2-16.4 L 718-7) HCT (test code = 31.0 % 38.4-49.3 L 4544-3) MCV (test code = 94.8 fL 81.7-95.6 787-2) MCH (test code = 29.7 pg 26.1-32.7 785-6) MCHC (test code = 31.3 g/dL 31.2-35.0 786-4) RDW-SD (test code = 61.2 fL 38.5-51.6 H 52924-7) RDW-CV (test code = 17.8 % 12.1-15.4 H 788-0) PLT (test code = See_Comment L [Automated 777-3) message] The sy stem which generated this result transmitted reference range : 150 - 328 10*3/ ?L. The reference r carroll was not used to interpret this result as normal/abnormal . MPV (test code = 11.7 fL 9.8-13.0 69860-8) NRBC/100 WBC (test See_Comment [Automat ed code = 3688201618) message] The system which generated this result transmitted reference range : 0.0 - 10.0 /100 WBCs. The refer ence range was not u sed to interpret th is result as normal/abnormal . NRBC x10^3 (test code See_Comment [Auto mated = 6497328401) message] The s ystem which generated this result transmitted reference range : 10*3/?L. The reference range was not used to interpret this result as normal/abnormal . GRAN MAT (NEUT) % 61.1 % (test code = 770-8) IMM GRAN % (test code 0.30 % = 4804258291) LYMPH % (test code = 27.2 % 736-9) MONO % (test code = 7.5 % 5905-5) EOS % (test code = 3.3 % 713-8) BASO % (test code = 0.6 % 706-2) GRAN MAT x10^3(ANC) 4.30 10*3/uL 1.99-6.95 (test code = 6348337503) IMM GRAN x10^3 (test 0.00-0.06 code = 1029087392) LYMPH x10^3 (test code 1.91 10*3/uL 1.09-3.23 = 731-0) MONO x10^3 (test code 0.53 10*3/uL 0.36-1.02 = 742-7) EOS x10^3 (test code = 0.23 10*3/uL 0.06-0.53 711-2) BASO x10^3 (test code 0.04 10*3/uL 0.01-0.09 = 704-7) Lab Interpretation Abnormal (test code = 42317-5) [facility] GLUCOSE (AUTOMATED)2022-05-02 15:18:16 Test Item Value Reference Range Interpretation Comments POCT GLU (test code = 9827550141) 115 mg/dL 70-110 H Lab Interpretation (test code = Abnormal 55162-0) [facility] GLUCOSE (AUTOMATED)2022-05-02 01:07:47 Test Item Value Reference Range Interpretation Comments POCT GLU (test code = 4217198546) 159 mg/dL 70-110 H Lab Interpretation (test code = Abnormal 07026-1) [facility] GLUCOSE (AUTOMATED)2022-05-01 17:45:26 Test Item Value Reference Range Interpretation Comments POCT GLU (test code = 4223852800) 86 mg/dL 70-110 Lab Interpretation (test code = Normal 46042-1) [facility] GLUCOSE (AUTOMATED)2022-05-01 13:56:04 Test Item Value Reference Range Interpretation Comments POCT GLU (test code = 8190674460) 80 mg/dL 70-110 Lab Interpretation (test code = Normal 73780-8) [facility] METABOLIC PANEL (NA, K, CL, CO2, GLUCOSE, BUN, CREATININE, CA)2022-05-01 10:44:43 Test Item Value Reference Range Interpretation Comments NA (test code = 137 mmol/L 135-145 1124346212) K (test code = 5.0 mmol/L 3.5-5 9754843832) CL (test code = 101 mmol/L 98-108 0191882096) CO2 TOTAL (test code = 25 mmol/L 23-31 4188163312) AGAP (test code = 2-16 1690068703) BUN (test code = 44 mg/dL 7-23 H 2781735837) GLUCOSE (test code = 81 mg/dL 70-110 9373294253) CREATININE (test code = 7.45 mg/dL 0.6-1.25 H 3867770594) CALCIUM (test code = 9.4 mg/dL 8.6-10.6 5139571042) eGFR (test code = mL/min/1.73m2 1598064635) TAMARA (test code = TAMARA) Association of [...] tests). Lab Interpretation Abnormal (test code = 41586-6) [facility] WITH [id number] 10:07:39 Test Item Value Reference Range Interpretation Comments WBC (test code = See_Comment [Automated 1719-2) message] The sy stem which generated this result transmitted reference range : 4.20 - 10.70 10*3/?L. The reference range was not used to interpret this result as normal/abnormal . RBC (test code = See_Comment L [Automated 409-8) message] The sy stem which generated this [...] (test code = 62.7 fL 38.5-51.6 H 40016-0) RDW-CV (test code = 18.4 % 12.1-15.4 H 788-0) PLT (test code = See_Comment L [Automated 777-3) message] The sy stem which generated this result transmitted reference range : 150 - 328 10*3/ ?L. The reference r carroll was not used to interpret this result as normal/abnormal . MPV (test code = 10.6 fL 9.8-13 70979-0) NRBC/100 WBC (test See_Comment [Automat ed code = 4205580741) message] The system which generated this result transmitted reference range : 0.0 - 10.0 /100 WBCs. The refer ence range was not u sed to interpret th is result as normal/abnormal . NRBC x10^3 (test code See_Comment [Auto mated = 7496117967) message] The s ystem which generated this result transmitted reference range : 10*3/?L. The reference range was not used to interpret this result as normal/abnormal . GRAN MAT (NEUT) % 56.5 % (test code = 770-8) IMM GRAN % (test code 0.30 % = 6818054830) LYMPH % (test code = 27.6 % 736-9) MONO % (test code = 9.1 % 5905-5) EOS % (test code = 5.9 % 713-8) BASO % (test code = 0.6 % 706-2) GRAN MAT x10^3(ANC) 4.92 10*3/uL 1.99-6.95 (test code = 9624136856) IMM GRAN x10^3 (test 0.03 10*3/uL 0-0.06 code = 5983669369) LYMPH x10^3 (test code 2.40 10*3/uL 1.09-3.23 = 731-0) MONO x10^3 (test code 0.79 10*3/uL 0.36-1.02 = 742-7) EOS x10^3 (test code = 0.51 10*3/uL 0.06-0.53 711-2) BASO x10^3 (test code 0.05 10*3/uL 0.01-0.09 = 704-7) Lab Interpretation Abnormal (test code = 21556-3) [facility] GLUCOSE (AUTOMATED)2022-05-01 02:56:18 Test Item Value Reference Range Interpretation Comments POCT GLU (test code = 9734438284) 95 mg/dL 70-110 Lab Interpretation (test code = Normal 79633-0) [facility] GLUCOSE (AUTOMATED)2022-04-29 21:27:56 Test Item Value Reference Range Interpretation Comments POCT GLU (test code = 2308680983) 98 mg/dL 70-110 Lab Interpretation (test code = Normal 87894-0) [facility] GLUCOSE (AUTOMATED)2022-04-29 16:43:50 Test Item Value Reference Range Interpretation Comments POCT GLU (test code = 4249630534) 94 mg/dL 70-110 Lab Interpretation (test code = Normal 98705-2) [facility] METABOLIC PANEL (NA, K, CL, CO2, GLUCOSE, BUN, CREATININE, CA)2022-04-29 13:33:55 Test Item Value Reference Range Interpretation Comments NA (test code = 137 mmol/L 135-145 5719671376) K (test code = 4.7 mmol/L 3.5-5 7955730095) CL (test code = 100 mmol/L 98-108 5371275578) CO2 TOTAL (test code = 28 mmol/L 23-31 1893637066) AGAP (test code = 2-16 5591043505) BUN (test code = 37 mg/dL 7-23 H 5506638106) GLUCOSE (test code = 87 mg/dL 70-110 2383132434) CREATININE (test code = 5.74 mg/dL 0.6-1.25 H 4333766440) CALCIUM (test code = 9.0 mg/dL 8.6-10.6 9479131731) eGFR (test code = mL/min/1.73m2 8904113202) TAMARA (test code = TAMARA) Association of [...] tests). Lab Interpretation Abnormal (test code = 20266-7) [place] [facility] Test Item Value Reference Range Interpretation Comments MAGNESIUM (test code = 1409135842) 1.7 mg/dL 1.7-2.4 Lab Interpretation (test code = Normal 16447-3) [place] [facility] 13:33:55 Test Item Value Reference Range Interpretation Comments PHOSPHORUS (test code = 5214213055) 5.9 mg/dL 2.5-5 H Lab Interpretation (test code = Abnormal 97588-1) [facility] WITH [id number] 13:25:56 Test Item Value Reference Range Interpretation [...] (test code = 63.2 fL 38.5-51.6 H 36487-6) RDW-CV (test code = 18.7 % 12.1-15.4 H 788-0) PLT (test code = See_Comment L [Automated 777-3) message] The sy stem which generated this result transmitted reference range : 150 - 328 10*3/ ?L. The reference r carroll was not used to interpret this result as normal/abnormal . MPV (test code = 11.2 fL 9.8-13 41563-6) NRBC/100 WBC (test See_Comment [Automat ed code = 6847593930) message] The system which generated this result transmitted reference range : 0.0 - 10.0 /100 WBCs. The refer ence range was not u sed to interpret th is result as normal/abnormal . NRBC x10^3 (test code See_Comment [Auto mated = 2856638811) message] The s ystem which generated this result transmitted reference range : 10*3/?L. The reference range was not used to interpret this result as normal/abnormal . GRAN MAT (NEUT) % 59.0 % (test code = 770-8) IMM GRAN % (test code 0.50 % = 9818841378) LYMPH % (test code = 25.3 % 736-9) MONO % (test code = 9.1 % 5905-5) EOS % (test code = 5.6 % 713-8) BASO % (test code = 0.5 % 706-2) GRAN MAT x10^3(ANC) 4.29 10*3/uL 1.99-6.95 (test code = 6060795677) IMM GRAN x10^3 (test 0.04 10*3/uL 0-0.06 code = 0002316411) LYMPH x10^3 (test code 1.84 10*3/uL 1.09-3.23 = 731-0) MONO x10^3 (test code 0.66 10*3/uL 0.36-1.02 = 742-7) EOS x10^3 (test code = 0.41 10*3/uL 0.06-0.53 711-2) BASO x10^3 (test code 0.04 10*3/uL 0.01-0.09 = 704-7) Lab Interpretation Abnormal (test code = 76755-6) [facility] GLUCOSE (AUTOMATED)2022-04-29 13:08:57 Test Item Value Reference Range Interpretation Comments POCT GLU (test code = 7290342837) 83 mg/dL 70-110 Lab Interpretation (test code = Normal 63450-8) [facility] GLUCOSE (AUTOMATED)2022-04-29 00:57:51 Test Item Value Reference Range Interpretation Comments POCT GLU (test code = 116 mg/dL 70-110 H Notifi ed Provider 3391029370) Lab Interpretation (test Abnormal code = 29522-8) [facility] GLUCOSE (AUTOMATED)2022-04-28 22:51:23 Test Item Value Reference Range Interpretation Comments POCT GLU (test code = 4016361889) 141 mg/dL 70-110 H Lab Interpretation (test code = Abnormal 47470-4) [place] [facility]28 21:22:21 Test Item Value Reference Range Interpretation Comments Height (test code = in 0142167073) Weight (test code = lbs 0137307918) Systolic BP (test code mmHg = 7111953289) Diastolic BP (test code mmHg = 9404113448) Heart Rate (test code = bpm 5920740087) BSA (test code = 2.04 m2 8987533474) Ao root diam (test code 3.50 cm = 0303635167) Aortic root (test code 3.5 cm = 2178897701) Ao root annulus (test 3.5 cm code = 0593160278) LA size (test code = 3.9 cm 1773680458) LVOT diameter (test 1.99 cm code = 5498780443) LVOT area (test code = 3.10 cm2 4319636275) LVIDD (test code = 5.50 cm 8840638012) Left Ventricular End 149.2 mL Diastolic Volume by Teichholz Method (test code = 7196895) IVS (test code = 0.86 cm 2540979849) Interventricular Septum 0.86 cm Diastolic Thickness by 2D (test code = 8309689) LVPWD (test code = 0.89 cm 9235660581) PW (test code = 0.89 cm 0.6-1.4 4418026765) EF(Teich) (test code = 50.30 % 6735258324) LVIDS (test code = 4.10 cm 7662647643) Left Ventricular End 74.2 mL Systolic Volume by Teichholz Method (test code = 5782628) FS (test code = 26 % 5863985780) EF - 2D (test code = 50.30 % 77832585) MV valve area p 1/2 4.10 cm2 method (test code = 9181313419) MV dec slope (test code 721.90 cm/s2 = 2360083104) MV P1/2t max talha (test 133.30 cm/s code = 2783287717) MV Peak E Talha (test 135.0 cm/s code = 9884518161) MV Peak A Talha (test 143.1 cm/s code = 0861221236) E/A ratio (test code = ratio 1408914414) MV Prop V (test code = 73.20 cm/s 4349294130) Tapse (test code = 3.2 cm 8855161836) MV E/e' septal (test 7.4 cm/s code = 4722938910) LVOT stroke volume 64.20 cm3 (test code = 9979947430) LVOT peak talha (test 95.1 cm/s code = 7960971821) LVOT mn grad (test code mmHg = 6217990840) AV LVOT peak gradient mmHg (test code = 6303222712) LVOT peak VTI (test 20.6 cm code = 0005881785) LV V1 mean (test code = 62.50 cm/s 9152049135) Aortic valve mean 263.9 cm/s velocity (test code = 7649559566) Ao peak talha (test code 370.1 cm/s = 3469068769) Ao VTI (test code = 89.5 cm 2449956065) AV area by cont VTI 0.7 cm2 (test code = 3626898632) AV area peak talha (test 0.8 cm2 code = 1742777166) Ao max PG (test code = 54.80 mm[Hg] 3871456154) AV peak gradient (test mmHg code = 2278929782) AV valve area (test 0.72 cm2 code = 8420444022) AV mean gradient (test mmHg code = 6385778305) AV regurgitation 548.9 ms pressure 1/2 time (test code = 6270767988) AI dec slope (test code 198.80 cm/s2 = 8109314350) AI max talha (test code = 372.70 cm/s 4149552339) AI max PG (test code = 55.50 mm[Hg] 7689166458) Radiology Study observation (narrative) (test code = 79564-7) TAMARA (test code = TAMARA) ?Right?Ventricle: Right [...] 2D, color flow Doppler and spectral Doppler. [facility] GLUCOSE (AUTOMATED)2022-04-28 17:19:26 Test Item Value Reference Range Interpretation Comments POCT GLU (test code = 2015838201) 80 mg/dL 70-110 Lab Interpretation (test code = Normal 61464-2) [facility] GLUCOSE (AUTOMATED)2022-04-28 13:25:30 Test Item Value Reference Range Interpretation Comments POCT GLU (test code = 4375314969) 98 mg/dL 70-110 Lab Interpretation (test code = Normal 51850-5) [facility] METABOLIC PANEL (NA, K, CL, CO2, GLUCOSE, BUN, CREATININE, CA)2022-04-28 07:58:12 Test Item Value Reference Range Interpretation Comments NA (test code = 136 mmol/L 135-145 6673243615) K (test code = 5.5 mmol/L 3.5-5 H 5871769150) CL (test code = 99 mmol/L 98-108 1873512746) CO2 TOTAL (test code = 30 mmol/L 23-31 8847886815) AGAP (test code = 2-16 0310660144) BUN (test code = 43 mg/dL 7-23 H 5470207743) GLUCOSE (test code = 84 mg/dL 70-110 7617256523) CREATININE (test code = 6.28 mg/dL 0.6-1.25 H 4513304853) CALCIUM (test code = 9.1 mg/dL 8.6-10.6 3545316971) eGFR (test code = mL/min/1.73m2 3955223856) TAMARA (test code = TAMARA) Association of [...] tests). Lab Interpretation Abnormal (test code = 48355-7) [place] [facility] 07:54:09 Test Item Value Reference Range Interpretation Comments MAGNESIUM (test code = 0984855204) 1.8 mg/dL 1.7-2.4 Lab Interpretation (test code = Normal 47093-7) [facility] WITH [id number] 07:40:46 Test Item Value Reference Range Interpretation [...] (test code = 64.6 fL 38.5-51.6 H 90000-9) RDW-CV (test code = 19.4 % 12.1-15.4 H 788-0) PLT (test code = See_Comment L [Automated 777-3) message] The sy stem which generated this result transmitted reference range : 150 - 328 10*3/ ?L. The reference r carroll was not used to interpret this result as normal/abnormal . MPV (test code = 10.9 fL 9.8-13 30428-1) NRBC/100 WBC (test See_Comment [Automat ed code = 3957125713) message] The system which generated this result transmitted reference range : 0.0 - 10.0 /100 WBCs. The refer ence range was not u sed to interpret th is result as normal/abnormal . NRBC x10^3 (test code See_Comment [Auto mated = 5987633790) message] The s ystem which generated this result transmitted reference range : 10*3/?L. The reference range was not used to interpret this result as normal/abnormal . GRAN MAT (NEUT) % 47.9 % (test code = 770-8) IMM GRAN % (test code 0.10 % = 8355062356) LYMPH % (test code = 38.9 % 736-9) MONO % (test code = 8.6 % 5905-5) EOS % (test code = 3.8 % 713-8) BASO % (test code = 0.7 % 706-2) GRAN MAT x10^3(ANC) 3.38 10*3/uL 1.99-6.95 (test code = 1574972962) IMM GRAN x10^3 (test 0-0.06 code = 1061941360) LYMPH x10^3 (test code 2.75 10*3/uL 1.09-3.23 = 731-0) MONO x10^3 (test code 0.61 10*3/uL 0.36-1.02 = 742-7) EOS x10^3 (test code = 0.27 10*3/uL 0.06-0.53 711-2) BASO x10^3 (test code 0.05 10*3/uL 0.01-0.09 = 704-7) Lab Interpretation Abnormal (test code = 80572-3) [facility] METABOLIC PANEL (NA, K, CL, CO2, GLUCOSE, BUN, CREATININE, CA)2022-04-27 22:46:00 Test Item Value Reference Range Interpretation Comments NA (test code = 133 mmol/L 135-145 L 5312005124) K (test code = 5.3 mmol/L 3.5-5 H 7008138297) CL (test code = 97 mmol/L 98-108 L 8356029513) CO2 TOTAL (test code = 32 mmol/L 23-31 H 0757911607) AGAP (test code = 2-16 9915598586) BUN (test code = 36 mg/dL 7-23 H 7407495376) GLUCOSE (test code = 101 mg/dL 70-110 7564937434) CREATININE (test code = 5.26 mg/dL 0.6-1.25 H 6379675504) CALCIUM (test code = 9.4 mg/dL 8.6-10.6 9029104071) eGFR (test code = mL/min/1.73m2 4144622728) TAMARA (test code = TAMARA) Association of [...] tests). Lab Interpretation Abnormal (test code = 71648-5) [place] [facility] 22:46:00 Test Item Value Reference Range Interpretation Comments MAGNESIUM (test code = 2903918057) 1.7 mg/dL 1.7-2.4 Lab Interpretation (test code = Normal 46641-1) [facility] WITH [id number] 22:34:24 Test Item Value Reference Range Interpretation Comments WBC (test code = See_Comment [Automated 4690-2) message] The sy stem which generated this result transmitted reference range : 4.20 - 10.70 10*3/?L. The reference range was not used to interpret this result as normal/abnormal . RBC (test code = See_Comment L [Automated 579-8) message] The sy stem which generated this [...] (test code = 62.8 fL 38.5-51.6 H 61566-1) RDW-CV (test code = 19.3 % 12.1-15.4 H 788-0) PLT (test code = See_Comment L [Automated 777-3) message] The sy stem which generated this result transmitted reference range : 150 - 328 10*3/ ?L. The reference r carroll was not used to interpret this result as normal/abnormal . MPV (test code = 11.4 fL 9.8-13 25384-7) IPF % (test code = 4.9 % 1.2-10.7 Platelet count 5174215491) measured by fluorescence method. NRBC/100 WBC (test See_Comment [Automat ed code = 1507597538) message] The system which generated this result transmitted reference range : 0.0 - 10.0 /100 WBCs. The refer ence range was not u sed to interpret th is result as normal/abnormal . NRBC x10^3 (test code See_Comment [Auto mated = 2877685677) message] The s ystem which generated this result transmitted reference range : 10*3/?L. The reference range was not used to interpret this result as normal/abnormal . GRAN MAT (NEUT) % 55.3 % (test code = 770-8) IMM GRAN % (test code 0.20 % = 9358943149) LYMPH % (test code = 34.6 % 736-9) MONO % (test code = 6.7 % 5905-5) EOS % (test code = 2.6 % 713-8) BASO % (test code = 0.6 % 706-2) GRAN MAT x10^3(ANC) 4.63 10*3/uL 1.99-6.95 (test code = 3000400040) IMM GRAN x10^3 (test 0-0.06 code = 2117025333) LYMPH x10^3 (test code 2.90 10*3/uL 1.09-3.23 = 731-0) MONO x10^3 (test code 0.56 10*3/uL 0.36-1.02 = 742-7) EOS x10^3 (test code = 0.22 10*3/uL 0.06-0.53 711-2) BASO x10^3 (test code 0.05 10*3/uL 0.01-0.09 = 704-7) Lab Interpretation Abnormal (test code = 79644-3) [facility] (in units), 1 Units 2022-04-27 18:47:23 Test Item Value Reference Range Interpretation Comments Cross Match Result Compatible (test code = 4409) ISBT Blood Type Code (test code = 625679) Unit Blood Type (test B Pos code = 4410) Unit Number (test [id number] code = 4411) Blood Expiration Date & Time (test code = 148272) Status Information Issued (test code = 4412) Product Red Blood Cells Identification (test code = 4413) Product Code (test [id number] Performed at [facility] code = 4414) Laboratory Services - [facility] [address] [place], [place] [address]Cleu Free: [phone] A No. [id number] [place] [facility] Confirmation (Lab Only)2022-04-27 15:48:19 Test Item Value Reference Range Interpretation Comments ABO & RH (test code B Positive Performe d at [facility] = 20) Laboratory Serv [facility] [address] [place], [place] [address]Toll Free: [phone] 266CLIA No. [id number] [place] [facility] and Screen - ONCE [id number] 15:41:23 Test Item Value Reference Range Interpretation Comments ABO & RH (test code B Positive Performe d at [facility] = 20) Laboratory Serv ices - [facility] [address] [place], [place] [address] 4Toll Free: [phone] 266CLIA No. [id number] IAT (test code = Negative Performed a t [facility] 1185) Laboratory Serv ices - [facility] [address] [place], [place] [address]Toll Free: [phone] 266CLIA No. [id number] [place] [facility]IM[facility]ATING [id number] 14:48:29 Test Item Value Reference Range Interpretation Comments TSH (test code = See_Comment Biotin has been 2424489105) reported to cau se a negative bias, interpret resul ts relative to pat ient's use of biotin. [Automated mess age] The system [employer] generated this result transmitted ref erence range: 0.45 - 4 .70 mIU/L. The refe rence range was not u sed to interpret this result as normal/abnor mal. Lab Interpretation (test Normal code = 70207-2) [place] [facility] (NA, K, CL, CO2, GLUCOSE, BUN, CREATININE, CA)2022-04-27 12:01:02 Test Item Value Reference Range Interpretation Comments NA (test code = 138 mmol/L 135-145 4052268803) K (test code = 7.1 mmol/L 3.5-5 HH 2883690020) CL (test code = 100 mmol/L 98-108 7602893747) CO2 TOTAL (test code = 31 mmol/L 23-31 4441543550) AGAP (test code = 2-16 8722168133) BUN (test code = 72 mg/dL 7-23 H 3475544014) GLUCOSE (test code = 90 mg/dL 70-110 4351784265) CREATININE (test code = 8.33 mg/dL 0.6-1.25 H 6872809000) CALCIUM (test code = 9.2 mg/dL 8.6-10.6 7474201306) eGFR (test code = mL/min/1.73m2 9473535430) TAMARA (test code = TAMARA) Association of [...] tests). Lab Interpretation Abnormal (test code = 14026-5) [facility] Test Item Value Reference Range Interpretation Comments PHOSPHORUS (test code = 4774100816) 6.9 mg/dL 2.5-5 H Lab Interpretation (test code = Abnormal 24713-8) [facility] Test Item Value Reference Range Interpretation Comments MAGNESIUM (test code = 4160584238) 1.8 mg/dL 1.7-2.4 Lab Interpretation (test code = Normal 38759-7) [facility] [id number] 11:31:33 Test Item Value Reference Range Interpretation Comments WBC (test code = See_Comment [Automated 9059-2) message] The sy stem which generated this [...] (test code = 64.8 fL 38.5-51.6 H 28177-9) RDW-CV (test code = 18.7 % 12.1-15.4 H 788-0) PLT (test code = See_Comment L [Automated 777-3) message] The sy stem which generated this result transmitted reference range : 150 - 328 10*3/ ?L. The reference r carroll was not used to interpret this result as normal/abnormal . MPV (test code = 11.2 fL 9.8-13 12023-8) NRBC/100 WBC (test See_Comment [Automat ed code = 7228133782) message] The system which generated this result transmitted reference range : 0.0 - 10.0 /100 WBCs. The refer ence range was not u sed to interpret th is result as normal/abnormal . NRBC x10^3 (test code See_Comment [Auto mated = [id number]) message] The s ystem which generated this result transmitted reference range : 10*3/?L. The reference range was not used to interpret this result as normal/abnormal . GRAN MAT (NEUT) % 69.8 % (test code = 770-8) IMM GRAN % (test code 0.10 % = 0873827145) LYMPH % (test code = 21.4 % 736-9) MONO % (test code = 6.4 % 5905-5) EOS % (test code = 1.9 % 713-8) BASO % (test code = 0.4 % 706-2) GRAN MAT x10^3(ANC) 4.90 10*3/uL 1.99-6.95 (test code = 1806148026) IMM GRAN x10^3 (test 0-0.06 code = 5483873567) LYMPH x10^3 (test code 1.50 10*3/uL 1.09-3.23 = 731-0) MONO x10^3 (test code 0.45 10*3/uL 0.36-1.02 = 742-7) EOS x10^3 (test code = 0.13 10*3/uL 0.06-0.53 711-2) BASO x10^3 (test code 0.03 10*3/uL 0.01-0.09 = 704-7) Lab Interpretation Abnormal (test code = 40867-2) [facility] 09:30:35 Test Item Value Reference Range Interpretation Comments POCT GLU (test code = 5731636268) 107 mg/dL 70-110 Lab Interpretation (test code = Normal 31545-2) [facility] METABOLIC PANEL (NA, K, CL, CO2, GLUCOSE, BUN, CREATININE, CA)2022-04-27 06:16:51 Test Item Value Reference Range Interpretation Comments NA (test code = 137 mmol/L 135-145 4901598473) K (test code = 6.7 mmol/L 3.5-5 HH 2633651437) CL (test code = 99 mmol/L 98-108 3138713903) CO2 TOTAL (test code = 29 mmol/L 23-31 5306735086) AGAP (test code = 2-16 4623538773) BUN (test code = 67 mg/dL 7-23 H 8044849039) GLUCOSE (test code = 75 mg/dL 70-110 0744510686) CREATININE (test code = 8.04 mg/dL 0.6-1.25 H 9219234094) CALCIUM (test code = 9.2 mg/dL 8.6-10.6 1767319839) eGFR (test code = mL/min/1.73m2 0099012404) TAMARA (test code = TAMARA) Association of [...] tests). Lab Interpretation Abnormal (test code = 84820-0) [facility]15 Test Item Value Reference Range Interpretation Comments MAGNESIUM (test code = 6242743595) 1.7 mg/dL 1.7-2.4 Lab Interpretation (test code = Normal 78887-3) [facility] 06:13:15 Test Item Value Reference Range Interpretation Comments PHOSPHORUS (test code = 9266242137) 6.8 mg/dL 2.5-5 H Lab Interpretation (test code = Abnormal 49104-9) [facility] [id number] 05:45:33 Test Item Value Reference Range Interpretation [...] (test code = 64.2 fL 38.5-51.6 H 26382-1) RDW-CV (test code = 18.6 % 12.1-15.4 H 788-0) PLT (test code = See_Comment L [Automated 777-3) message] The sy stem which generated this result transmitted reference range : 150 - 328 10*3/ ?L. The reference r carroll was not used to interpret this result as normal/abnormal . MPV (test code = 11.5 fL 9.8-13 08862-6) NRBC/100 WBC (test See_Comment [Automat ed code = 8460684167) message] The system which generated this result transmitted reference range : 0.0 - 10.0 /100 WBCs. The refer ence range was not u sed to interpret th is result as normal/abnormal . NRBC x10^3 (test code See_Comment [Auto mated = 2086494038) message] The s ystem which generated this result transmitted reference range : 10*3/?L. The reference range was not used to interpret this result as normal/abnormal . GRAN MAT (NEUT) % 70.2 % (test code = 770-8) IMM GRAN % (test code 0.30 % = 4481092371) LYMPH % (test code = 21.2 % 736-9) MONO % (test code = 6.2 % 5905-5) EOS % (test code = 1.6 % 713-8) BASO % (test code = 0.5 % 706-2) GRAN MAT x10^3(ANC) 5.18 10*3/uL 1.99-6.95 (test code = 0260478913) IMM GRAN x10^3 (test 0-0.06 code = 1417572658) LYMPH x10^3 (test code 1.57 10*3/uL 1.09-3.23 = 731-0) MONO x10^3 (test code 0.46 10*3/uL 0.36-1.02 = 742-7) EOS x10^3 (test code = 0.12 10*3/uL 0.06-0.53 711-2) BASO x10^3 (test code 0.04 10*3/uL 0.01-0.09 = 704-7) Lab Interpretation Abnormal (test code = 57973-0) [facility] GLUCOSE (AUTOMATED)2022-04-27 03:50:48 Test Item Value Reference Range Interpretation Comments POCT GLU (test code = 8818864500) 85 mg/dL 70-110 Lab Interpretation (test code = Normal 90522-4) [facility] GLUCOSE (AUTOMATED)2022-04-26 23:31:15 Test Item Value Reference Range Interpretation Comments POCT GLU (test code = 7668252845) 78 mg/dL 70-110 Lab Interpretation (test code = Normal 94078-2) [facility] GLUCOSE (AUTOMATED)2022-04-26 23:18:19 Test Item Value Reference Range Interpretation Comments POCT GLU (test code = 5803108227) 64 mg/dL 70-110 L Lab Interpretation (test code = Abnormal 95655-2) [facility] GLUCOSE (AUTOMATED)2022-04-26 23:00:59 Test Item Value Reference Range Interpretation Comments POCT GLU (test code = 7411533503) 57 mg/dL 70-110 L Lab Interpretation (test code = Abnormal 08494-3) [facility] GLUCOSE (AUTOMATED)2022-04-26 22:37:20 Test Item Value Reference Range Interpretation Comments POCT GLU (test code = 53 mg/dL 70-110 L Notifi ed Provider 5607639709) Lab Interpretation (test Abnormal code = 83873-1) [facility] (A1C)2022-04-26 21:37:24 Test Item Value Reference Range Interpretation Comments HGB A1C (test code = 5.2 % 4-5.7 4548-4) TAMARA (test code = TAMARA) Reference RangesNormal: <5.7%Prediabetes: 5.7 - 6.4%Diabetes: > 6.5% Lab Interpretation (test Normal code = 51203-5) [facility] Antibody ([facility]BsAb)2022-04-26 21:21:39 Test Item Value Reference Range Interpretation Comments HBsAB (test code = Indeterminate 7530183882) HBsAb mIU/mL Semi-Quantitative (test code = 2581657043) TAMARA (test code = Unable to determine if TAMARA) antibody to Hepatitis B Surface Antigen is present at levels consistent with immunity. ?Patient's immune status should be assessed with other clinical information and/or retesting in 4-6 weeks as clinically indicated. ?If any questions, please contact Clinical Chemistry Director information technology program manager at .Unable to determine if antibody to Hepatitis B Surface Antigen is present at levels consistent with immunity. ?Patient's immune status should be assessed with other clinical information and/or retesting in 4-6 weeks as clinically indicated. ?If any questions, please contact Clinical Chemistry Director information technology program manager at .Interpretati on: ?Hepatitis B Surface Antibody ? Negative - Patient is considered to be not immune to infection with HBV. ? ? Positive - Anti-HBs detected at greater than or equal to 12 mIU/mL. ?Patient is considered to be immune to infection with HBV. ? [facility] (NA, K, CL, CO2, GLUCOSE, BUN, CREATININE, CA)2022-04-26 20:31:55 Test Item Value Reference Range Interpretation Comments NA (test code = 139 mmol/L 135-145 2086910922) K (test code = 5.7 mmol/L 3.5-5 H 0540390764) CL (test code = 101 mmol/L 98-108 1716941112) CO2 TOTAL (test code = 25 mmol/L 23-31 6912541905) AGAP (test code = 2-16 1131052738) BUN (test code = 58 mg/dL 7-23 H 4948747853) GLUCOSE (test code = 58 mg/dL 70-110 L 7886541555) CREATININE (test code = 7.22 mg/dL 0.6-1.25 H 1233297735) CALCIUM (test code = 9.4 mg/dL 8.6-10.6 4750849399) eGFR (test code = mL/min/1.73m2 2725049339) TAMARA (test code = TAMARA) Association of [...] tests). Lab Interpretation Abnormal (test code = 71833-7) [facility] 20:31:55 Test Item Value Reference Range Interpretation Comments MAGNESIUM (test code = 0937624493) 1.8 mg/dL 1.7-2.4 Lab Interpretation (test code = Normal 56210-2) [facility] 20:31:55 Test Item Value Reference Range Interpretation Comments PHOSPHORUS (test code = 4015079075) 5.3 mg/dL 2.5-5 H Lab Interpretation (test code = Abnormal 70702-6) [facility] WITH [id number] 20:21:31 Test Item Value Reference Range Interpretation [...] (test code = 63.5 fL 38.5-51.6 H 03782-8) RDW-CV (test code = 18.6 % 12.1-15.4 H 788-0) PLT (test code = See_Comment L [Automated 777-3) message] The sy stem which generated this result transmitted reference range : 150 - 328 10*3/ ?L. The reference r carroll was not used to interpret this result as normal/abnormal . MPV (test code = 11.6 fL 9.8-13 14118-1) NRBC/100 WBC (test See_Comment [Automat ed code = 2440388625) message] The system which generated this result transmitted reference range : 0.0 - 10.0 /100 WBCs. The refer ence range was not u sed to interpret th is result as normal/abnormal . NRBC x10^3 (test code See_Comment [Auto mated = 2004114448) message] The s ystem which generated this result transmitted reference range : 10*3/?L. The reference range was not used to interpret this result as normal/abnormal . GRAN MAT (NEUT) % 82.0 % (test code = 770-8) IMM GRAN % (test code 0.10 % = 0688418143) LYMPH % (test code = 14.3 % 736-9) MONO % (test code = 3.2 % 5905-5) EOS % (test code = 0.1 % 713-8) BASO % (test code = 0.3 % 706-2) GRAN MAT x10^3(ANC) 7.37 10*3/uL 1.99-6.95 H (test code = 8831058820) IMM GRAN x10^3 (test 0-0.06 code = 1760296811) LYMPH x10^3 (test code 1.29 10*3/uL 1.09-3.23 = 731-0) MONO x10^3 (test code 0.29 10*3/uL 0.36-1.02 L = 742-7) EOS x10^3 (test code = 0.06-0.53 L 711-2) BASO x10^3 (test code 0.03 10*3/uL 0.01-0.09 = 704-7) Lab Interpretation Abnormal (test code = 22137-6) [facility] GLUCOSE (AUTOMATED)2022-04-26 16:53:05 Test Item Value Reference Range Interpretation Comments POCT GLU (test code = 2200146570) 102 mg/dL 70-110 Lab Interpretation (test code = Normal 04291-2) [facility] ([facility]Ag[facility]2022-04-26 16:46:40 Test Item Value Reference Range Interpretation Comments HBsAg Semi-Quantitative (test code = Negative Negative 5195-3) [facility] GLUCOSE (AUTOMATED)2022-04-26 11:53:19 Test Item Value Reference Range Interpretation Comments POCT GLU (test code = 5241472419) 109 mg/dL 70-110 Lab Interpretation (test code = Normal 34503-2) [facility] (NA, K, CL, CO2, GLUCOSE, BUN, CREATININE, CA)2022-04-26 10:31:59 Test Item Value Reference Range Interpretation Comments NA (test code = 141 mmol/L 135-145 6173394335) K (test code = 7.4 mmol/L 3.5-5 HH 2269440178) CL (test code = 106 mmol/L 98-108 6746951980) CO2 TOTAL (test code = 24 mmol/L 23-31 2968974284) AGAP (test code = 2-16 6850800734) BUN (test code = 106 mg/dL 7-23 H 5852580685) GLUCOSE (test code = 60 mg/dL 70-110 L 6341014572) CREATININE (test code = 10.94 mg/dL 0.6-1.25 H 1914612999) CALCIUM (test code = 9.3 mg/dL 8.6-10.6 2795285216) eGFR (test code = mL/min/1.73m2 2158372456) TAMARA (test code = TAMARA) Association of [...] tests). Lab Interpretation Abnormal (test code = 27246-6) [facility] GLUCOSE (AUTOMATED)2022-04-26 09:45:04 Test Item Value Reference Range Interpretation Comments POCT GLU (test code = 4933144380) 70 mg/dL 70-110 Lab Interpretation (test code = Normal 05692-4) [facility] GLUCOSE(AGE >30DAYS)2022-04-26 09:41:00 Test Item Value Reference Range Interpretation Comments POCT Glu (age>30days) (test code = 70 mg/dL 70-110 3342) Lab Interpretation (test code = Normal 47417-9) [facility] [id number] 08:01:27 Test Item Value Reference Interpretation Comments Range TROPONIN I (test 0.276 ng/mL See_Comment H [Automated code = 9396086278) message] The system which generated this result [...] biotin. Lab Interpretation Abnormal (test code = 22650-1) [facility] [id number] 07:58:26 Test Item Value Reference Range Interpretation Comments NT-proBNP (test code 14348 pg/mL See_Comment H [Autom ated = 3011703830) message] The system which generated this result transmitted reference range : <=450. The reference range was not used to interpret this result as normal/abnormal . TAMARA (test code = TAMARA) Biotin has been reported to cause a negative bias, interpret results relative to patient's use of biotin. Lab Interpretation Abnormal (test code = 20862-7) [facility]. METABOLIC PANEL (91839)2022-04-26 07:57:26 Test Item Value Reference Range Interpretation Comments NA (test code = 138 mmol/L 135-145 9585969613) K (test code = 8.3 mmol/L 3.5-5 HH 6322945084) CL (test code = 104 mmol/L 98-108 0202762716) CO2 TOTAL (test code = 24 mmol/L 23-31 9611575938) AGAP (test code = 2-16 1918114543) BUN (test code = 107 mg/dL 7-23 H 5984672081) GLUCOSE (test code = 100 mg/dL 70-110 9755365507) CREATININE (test code = 10.87 mg/dL 0.6-1.25 H 9463906504) TOTAL BILI (test code = 0.6 mg/dL 0.1-1.4 9105827025) CALCIUM (test code = 9.4 mg/dL 8.6-10.6 7740395287) T PROTEIN (test code = 7.2 g/dL 6.3-8.2 0528793861) ALBUMIN (test code = 4.0 g/dL 3.5-5 6995199088) ALK PHOS (test code = 66 U/L 34-122 6120881809) ALTv (test code = 14 U/L 5-50 1742-6) AST(SGOT) (test code = 18 U/L 13-40 6352216058) eGFR (test code = mL/min/1.73m2 8724394227) TAMARA (test code = TAMARA) Association of [...] tests). Lab Interpretation Abnormal (test code = 77684-7) [facility] GLUCOSE (AUTOMATED)2022-04-26 07:50:29 Test Item Value Reference Range Interpretation Comments POCT GLU (test code = 3664539951) 145 mg/dL 70-110 H Lab Interpretation (test code = Abnormal 68148-3) [facility]LIP[facility], [id number] 07:49:24 Test Item Value Reference Range Interpretation Comments LIPASE (test code = 8008157873) 143 U/L 0-220 Lab Interpretation (test code = Normal 44685-2) [facility] GLUCOSE(AGE >30DAYS)2022-04-26 07:47:00 Test Item Value Reference Range Interpretation Comments POCT Glu (age>30days) (test code = 145 mg/dL 70-110 A 3342) Lab Interpretation (test code = Abnormal 16473-0) [facility] WITH [id number] 07:27:06 Test Item Value Reference Range Interpretation [...] (test code = 63.5 fL 38.5-51.6 H 59074-5) RDW-CV (test code = 18.7 % 12.1-15.4 H 788-0) PLT (test code = See_Comment L [Automated 777-3) message] The sy stem which generated this result transmitted reference range : 150 - 328 10*3/ ?L. The reference r carroll was not used to interpret this result as normal/abnormal . MPV (test code = 12.7 fL 9.8-13 52117-4) NRBC/100 WBC (test See_Comment [Automat ed code = 4458418900) message] The system which generated this result transmitted reference range : 0.0 - 10.0 /100 WBCs. The refer ence range was not u sed to interpret th is result as normal/abnormal . NRBC x10^3 (test code See_Comment [Auto mated = 2549377751) message] The s ystem which generated this result transmitted reference range : 10*3/?L. The reference range was not used to interpret this result as normal/abnormal . GRAN MAT (NEUT) % 67.2 % (test code = 770-8) IMM GRAN % (test code 0.50 % = 9318669956) LYMPH % (test code = 20.7 % 736-9) MONO % (test code = 6.0 % 5905-5) EOS % (test code = 5.1 % 713-8) BASO % (test code = 0.5 % 706-2) GRAN MAT x10^3(ANC) 5.93 10*3/uL 1.99-6.95 (test code = 9594364906) IMM GRAN x10^3 (test 0.04 10*3/uL 0-0.06 code = 3951297781) LYMPH x10^3 (test code 1.82 10*3/uL 1.09-3.23 = 731-0) MONO x10^3 (test code 0.53 10*3/uL 0.36-1.02 = 742-7) EOS x10^3 (test code = 0.45 10*3/uL 0.06-0.53 711-2) BASO x10^3 (test code 0.04 10*3/uL 0.01-0.09 = 704-7) Lab Interpretation Abnormal (test code = 60383-8) [facility] [id number] 19:03:28 Right posterior parietal scalp soft tissue [...] noted nonspecific enlargement of the right subman dibulargland.[facility] Sp[facility] W/O Contrast 2020-05-20 19:03:28 [...] malalignmentIncidentally noted nonspecific enlargement of the right submandibulargland.[facility]"
[2022-10-14] MEDS ORDERED: ONDANSETRON 4 MG/2 ML VIAL ONE (10:06)
[2022-10-14] MEDS ORDERED: MORPHINE 4 MG/ML SYR ONE ×2 (10:06→13:45)
[2022-10-14] MEDS ORDERED: FAMOTIDINE 20 MG/2 ML VIAL IV ONE (10:07)
[2022-10-14 10:15] LABS: Hematocrit 34.8 % (39.6-49.0); Lymphocytes % 12.9 % (15.3-44.8); MCV 93.6 fL (80-100); MPV 9.4 fL (7.6-11.3); RBC Red Blood Cell Count 3.72 M/uL (4.33-5.43)
[2022-10-14 10:54] LABS: Albumin 2.8 g/dL (3.4-5.0); Bilirubin Total 0.6 mg/dL (0.2-1.0); Potassium 4.9 mmol/L (3.5-5.1); Protein, Total 7.8 g/dL (6.4-8.2)
[2022-10-14 11:12] LABS: SARS-COV-2 RT PCR NEGATIVE (NEGATIVE)
--- NOTE | 2022-10-14 11:46 | RAD REPORT ---
EXAM DESCRIPTION: CT - Chest Abd Pelvis Wo Con - 10/14/2022 10:27 am CLINICAL HISTORY: Vomiting, abdominal pain. Recent history of hospital admission for intestinal infe ction PAIN COMPARISON: THORAX WO CONTRAST dated 12/07/2014; THORAX WO CONTRAST dated 08/20/2014; THORAX WO CONTRAS T dated 07/09/2014; Abdomen Pelvis Wo Contrast dated 08/06/2021 TECHNIQUE: Axial thin cut CT images of the chest, abdomen, and pelvis, performed without IV contrast . Multiplanar reformats were generated and reviewed. All CT scans are performed using dose optimization technique as appropriate and may include automated exposure control or mA/KV adjustment according to patient size. FINDINGS: Perihilar atelectatic changes in the lower lobes bilaterally. Dependent ground-glass opaci ties and micro nodularity in the left upper and lower lobes. Associated small calcifications along th e left lower lobe.Small layering bilateral pleural effusions. No pneumothorax. Moderate cardiomegaly with dense calcifications at the mitral and aortic valve annulus.Mildly prominent mediastinal and lef t more than right hilar lymph nodes, with dystrophic calcifications on the left. The liver, spleen, pancreas, adrenal glands and kidneys show no suspicious findings. Status post chol ecystectomy. Scattered punctate calcifications in the liver and spleen. Few new small calcifications in the region of the aryan hepatis and epigastrium, could reflect small calcified lymph nodes. No bowel obstruction, free air, free fluid or abscess. Normal appendix. No pathologic lymphadenopath y in the abdomen or pelvis. No worrisome osseous finding. Extensive subcutaneous calcifications again seen. IMPRESSION: Small bilateral pleural effusions. Ground-glass opacities and micro nodularity in the dependent left upper and lower lobes, could reflec t pneumonitis. New mediastinal and more than hilar adenopathy with calcified lymph nodes in the left hilum. In conju nction with presence of calcifications within the liver, spleen, and epigastric lymph nodes as well a s the subcutaneous soft tissues, the findings may relate to prior chronic granulomatous infection, ve rsus sequelae of metabolic abnormalities such as hyperparathyroidism. No acute findings in the abdomen and pelvis.
[2022-10-14 12:12] LABS: Anisocytosis 2+; Blood Morphology Comment NOTED (NOT SEEN); Hypochromasia 1+; Platelet Estimate ADEQ; Polychromasia SLIGHT; Target Cells FEW; White Blood Cell Scan OK (OK)
--- NOTE | 2022-10-14 13:39 | ER ---
Nurse's Notes [facility] Name: Jozef Carbajal Age: 77 yrs Sex: Male : 1945 Arrival Date: 10/14/2022 Time: 09:20 Bed 5 Private MD: Diagnosis: Abdominal pain, unspecified;Dehydration;End stage renal disease;Muscle weakness (generalized) Presentation: 10/14 09:35 Chief complaint: Pt's states "his side has been hurting and we took him to [place] [address] and he was there for 2 days with an intestinal infection and has been taking antibiotics". Pt's reports generalized weakness and vomiting today, reports last dialysis was Wednesday. 09:35 Onset of symptoms was September 2022. aa5 09:35 Acuity: CARLOS MANUEL 3 aa5 09:35 Method Of Arrival: Wheelchair aa5 09:35 Coronavirus screen: vomiting. Ebola Screen: Patient denies travel to an Ebola-affected [facility] area in the 21 days before illness onset. Initial Sepsis Screen: Does the patient meet any 2 criteria? No. Patient's initial sepsis screen is negative. Does the patient have a suspected source of infection? Yes:. Risk Assessment: Do you want to hurt yourself or someone else? Patient reports no desire to harm self or others. Historical: - Allergies: 09:42 No Known Allergies; aa5 - PMHx: 09:41 Anemia; Diabetes - NIDDM; Hypertension; Hypothyroidism; Lupus; Renal Disease; aa5 - PSHx: 09:41 Left arm Dialysis fistula; aa5 - Immunization history:: Adult Immunizations up to date. - Social history:: Smoking status: Patient denies any tobacco usage or history of. Screenin:18 [facility] ED Fall Risk Assessment (Adult) History of falling in the last 3 months, sg5 including since admission No falls in past 3 months (0 pts). Abuse screen: Denies threats or abuse. Nutritional screening: No deficits noted. Tuberculosis screening: No symptoms or risk factors identified. Assessment: 10:18 General: Appears uncomfortable, Behavior is calm, cooperative, appropriate for age. sg5 Pain: Complains of pain in Right upper and lower abdominal quadrant. Pain currently is 7 out of 10 on a pain scale. at worst was 10 out of 10 on a pain scale. Neuro: No deficits noted. Level of Consciousness is awake, alert, obeys commands, Oriented to person, place, time, situation, Appropriate for age. Cardiovascular: No deficits noted. Denies chest pain, Heart tones S1 S2 present Capillary refill < 3 seconds. Respiratory: No deficits noted. Airway is patent Trachea midline Breath sounds are clear bilaterally. GI: Abdomen is flat, non-distended, Pt is actively vomiting bile, Bowel sounds present X 4 quads. Reports lower abdominal pain, upper abdominal pain, nausea, vomiting. : Reports inability to void, Dialysis and renal disease. EENT: No deficits noted. No signs and/or symptoms were reported regarding the EENT system. Derm: No deficits noted. No signs and/or symptoms reported regarding the dermatologic system. Musculoskeletal: No deficits noted. No signs and/or symptoms reported regarding the musculoskeletal system. 12:03 Reassessment: Patient appears in no apparent distress at this time. Patient and/or hb family updated on plan of care and expected duration. Pain level reassessed. Patient is alert, oriented x 3, equal unlabored respirations, skin warm/dry/pink. 12:36 Reassessment: Patient complaint, pain is coming back 7/10. sg5 Vital Signs: 09:35 BP 140 / 58; Pulse 79; Resp 16 S; Temp 98.4(O); Pulse Ox 100% on R/A; aa5 10:53 BP 144 / 52; Pulse 72; Resp 17; Pulse Ox 100% on R/A; hb 12:02 BP 142 / 53; Pulse 67; Resp 15; Pulse Ox 99% ; hb 12:35 BP 156 / 54; Pulse 73; Resp 16; Pulse Ox 100% on R/A; Pain 7/10; sg5 12:35 Pain Scale: Adult sg5 ED Course: 09:20 Patient arrived in ED. rg4 09:21 Catherine Oliver PA-C is PHCP. sb4 09:21 Amos Zhao MD is Attending Physician. sb4 09:35 Arm band placed on. aa5 09:43 Triage completed. aa5 09:48 Samson Longo, VAMSHI is Primary Nurse. bp 10:06 COVID-19/FLU A+B Sent. bc6 10:06 CBC with Diff Sent. bc6 10:06 CMP Sent. bc6 10:06 Lipase Sent. bc6 10:06 Inserted saline lock: 20 gauge in right antecubital area, using aseptic technique. bc6 10:18 Patient has correct armband on for positive identification. Bed in low position. Call sg5 light in reach. Side rails up X2. Adult w/ patient. Valuables Left with patient. 10:29 Chest Abdomen Pelvis Wo Con CT In Process Unspecified. EDMS 13:37 Justin Vanessa MD is Hospitalizing Provider. sb4 Administered Medications: 10:09 Drug: Famotidine IVP 20 mg Route: IVP; Site: right antecubital; sg5 10:09 Drug: Ondansetron IVP 4 mg Route: IVP; Site: right antecubital; sg5 10:09 Drug: morphine IVP or IV 4 mg Route: IVP; Infused Over: 4 mins; Site: right antecubital;sg5 Medication: 10:18 VIS not applicable for this client. sg5 Outcome: 13:38 Decision to Hospitalize by Provider. sb4 Signatures: Dispatcher [employer] EDFL Radha Cortez, RN RN aa5 Senait Bill, RN RN Maribel Haskins rg4 Samson Longo, RN RN Catherine Jackson, PA-C PA-C sb4 Mary Jones bc6 Kelsea Kelley, RN RN sg5
--- NOTE | 2022-10-14 13:39 | EDPHYS ---
Physician Documentation [facility] Name: Jozef Carbajal Age: 77 yrs Sex: Male : 1945 Arrival Date: 10/14/2022 Time: 09:20 Bed 5 Private MD: ED Physician Amos Zhao HPI: 10/14 09:46 This 77 yrs old Black Male presents to ER via Wheelchair with complaints of sb4 Nausea/Vomiting, Flank Pain. 09:46 The patient presents to the emergency department with nausea, that is mild, abdominal sb4 pain, of the right upper quadrant and right lower quadrant, and does not radiate. Onset: The symptoms/episode began/occurred 6 day(s) ago. Possible causes: unknown. The symptoms are aggravated by nothing. The symptoms are alleviated by nothing. Associated signs and symptoms: Pertinent positives: abdominal pain, nausea, vomiting, Pertinent negatives: constipation, diarrhea, dysuria, fever, GI bleeding, hematuria. The patient has been recently seen by a physician: in the hospital, [facility] 5 day(s) ago. 77 year old male ESRD, hypertension, diabetes states he started having right sided abdominal pain for 6 days now. He was seen and admitted at [facility] for colitis, stayed for 2 days with antibiotics. States the pain has not gotten any better. He missed dialysis today because he was vomiting.. Historical: - Allergies: 09:42 No Known Allergies; aa5 - PMHx: 09:41 Anemia; Diabetes - NIDDM; Hypertension; Hypothyroidism; Lupus; Renal Disease; aa5 - PSHx: 09:41 Left arm Dialysis fistula; aa5 - Immunization history:: Adult Immunizations up to date. - Social history:: Smoking status: Patient denies any tobacco usage or history of. ROS: 09:46 Constitutional: Negative for fever, chills, and weight loss, Eyes: Negative for injury, sb4 pain, redness, and discharge, ENT: Negative for injury, pain, and discharge, Cardiovascular: Negative for chest pain, palpitations, and edema, Back: Negative for injury and pain, MS/Extremity: Negative for injury and deformity, Neuro: Negative for headache, weakness, numbness, tingling, and seizure. 09:46 Respiratory: Positive for cough, with no reported sputum, Negative for dyspnea on exertion, hemoptysis, shortness of breath, sputum production. 09:46 Abdomen/GI: Positive for abdominal pain, nausea and vomiting, Negative for diarrhea, constipation, black/tarry stool, rectal pain, rectal bleeding, bowel incontinence. Exam: 09:46 Head/Face: Normocephalic, atraumatic. Eyes: Extra-ocular motions intact. Periorbital sb4 areas with no swelling, redness, or edema. ENT: Mucous membranes moist. Cardiovascular: Regular rate and rhythm with a normal S1 and S2. Respiratory: Lungs have equal breath sounds bilaterally, clear to auscultation and percussion. No rales, rhonchi or wheezes noted. No increased work of breathing, no retractions or nasal flaring. Abdomen/GI: Soft, non-tender, no distension. Back: No spinal tenderness. No costovertebral tenderness. Full range of motion. Skin: Warm, dry with normal turgor. Normal color with no rashes, no lesions, and no evidence of cellulitis. MS/ Extremity: Pulses equal, no cyanosis. Neurovascular intact. Full, normal range of motion. Neuro: Awake and alert, GCS 15, oriented to person, place, time, and situation. Cranial nerves II-XII grossly intact. Motor strength 5/5 in all extremities. Sensory grossly intact. Cerebellar exam normal. Normal gait. 09:46 Constitutional: The patient appears alert, awake, frail. Vital Signs: 09:35 BP 140 / 58; Pulse 79; Resp 16 S; Temp 98.4(O); Pulse Ox 100% on R/A; aa5 10:53 BP 144 / 52; Pulse 72; Resp 17; Pulse Ox 100% on R/A; hb 12:02 BP 142 / 53; Pulse 67; Resp 15; Pulse Ox 99% ; hb 12:35 BP 156 / 54; Pulse 73; Resp 16; Pulse Ox 100% on R/A; Pain 7/10; sg5 12:35 Pain Scale: Adult sg5 MDM: 09:42 Patient medically screened. sb4 09:46 Differential diagnosis: Nonspecific abd pain, appendicitis, gastroenteritis, colitis, sb4 nephrolithiasis, cystitis, pyelonephritis. 13:37 Data reviewed: vital signs, nurses notes, lab test result(s), CBC, electrolytes, sb4 radiologic studies, CT scan. Data reviewed: and as a result, I will admit patient. Consideration of Admission/Observation Patient was admitted/placed on observation. Management of patient was discussed with the following: Primary Care Provider: Dr. Vanessa. 10/14 09:42 Order name: CBC with Diff; Complete Time: 12:14 4 10/14 09:42 Order name: CMP; Complete Time: 10:57 sb4 10/14 09:42 Order name: Lipase; Complete Time: 10:57 sb4 10/14 09:42 Order name: Urine Microscopic Only sb4 10/14 09:42 Order name: IV Saline Lock; Complete Time: 10:06 sb4 10/14 09:42 Order name: Labs collected and sent; Complete Time: 10:06 4 10/14 09:42 Order name: Chest Abdomen Pelvis Wo Con CT; Complete Time: 11:47 [facility] 10/14 09:43 Order name: COVID-19/FLU A+B; Complete Time: 11:15 [facility] 10/14 10:24 Order name: Labs - recollect needed: recollect c7; Complete Time: 10:29 10/14 12:13 Order name: CBC Smear Scan; Complete Time: 12:14 EDMS Administered Medications: 10:09 Drug: Famotidine IVP 20 mg Route: IVP; Site: right antecubital; sg5 10:09 Drug: Ondansetron IVP 4 mg Route: IVP; Site: right antecubital; sg5 10:09 Drug: morphine IVP or IV 4 mg Route: IVP; Infused Over: 4 mins; Site: right antecubital;sg5 Disposition Summary: 10/14/22 13:38 Hospitalization Ordered Hospitalization Status: Inpatient Admission sb4 Provider: Justin Vanessa [facility] sb4 Condition: Fair sb4 Problem: an ongoing problem sb4 Symptoms: are unchanged sb4 Bed/Room Type: Standard sb4 Room Assignment: sb4 Diagnosis - Abdominal pain, unspecified sb4 - Dehydration sb4 - End stage renal disease sb4 - Muscle weakness (generalized) sb4 Forms: - Medication Reconciliation Form sb4 - SBAR form sb4 Signatures: Dispatcher [employer] EDMS Kassy Clinton Audri, RN RN aa5 Catherine Oliver PA-C PACaitlin sb4 Kelley, Kelsea, RN RN sg5
[2022-10-14] MEDS ORDERED: Levofloxacin 250mg IV 250 MG/50 ML BAG IV SCH (15:12)
[2022-10-14] MEDS: INSULIN -REGULAR HUMAN 50 UNIT/0.5 ML ML SQ SCH ×2 (15:46→20:33)
[2022-10-14 15:52] VITALS: BMI 21.7
[2022-10-14] MEDS: METRONIDAZOLE 500mg IVPB 500 MG/100 ML BAG IV SCH (16:00)
[2022-10-15] MEDS: METRONIDAZOLE 500mg IVPB 500 MG/100 ML BAG IV SCH (00:54)
[2022-10-15 06:03] LABS: Absolute Lymphocytes (CBC) 1.4 K/uL (0.7-4.9); Hematocrit 30.6 % (39.6-49.0); Lymphocytes % 25.5 % (15.3-44.8); MPV 9.3 fL (7.6-11.3); RBC Red Blood Cell Count 3.29 M/uL (4.33-5.43)
[2022-10-15 06:32] LABS: Magnesium 2.1 mg/dL (1.6-2.4); Phosphorus 6.6 mg/dL (2.5-4.9); Potassium 5.2 mmol/L (3.5-5.1)
[2022-10-15] MEDS: INSULIN -REGULAR HUMAN 50 UNIT/0.5 ML ML SQ SCH ×4 (07:26→21:00)
[2022-10-15] MEDS: BENZONATATE 100 MG CAP PO SCH ×3 (08:29→22:07)
[2022-10-15] MEDS: LEVOTHYROXINE SOD 0.05 MG TABLET PO SCH (08:29)
[2022-10-15] MEDS: AMLODIPINE 10 MG TAB PO SCH (08:29)
[2022-10-15] MEDS: PANTOPRAZOLE 40MG TABLET PO SCH (08:30)
[2022-10-15] MEDS: FOLIC ACID 1 MG TABLET PO SCH (08:30)
[2022-10-15] MEDS: DOXAZOSIN 4 MG TAB PO SCH ×2 (08:30→21:56)
[2022-10-15] MEDS: allopurinoL 100 MG TAB PO SCH (08:30)
[2022-10-15] MEDS: ACETAMINOPHEN 500 MG TAB PO PRN ×2 (08:30→13:26)
[2022-10-15] MEDS: VITAMIN D 1000 UNIT TAB PO SCH (08:30)
[2022-10-15] MEDS: HEPARIN 5000 UNIT/ML 1 ML VIAL SQ SCH ×2 (08:30→21:57)
[2022-10-15] MEDS: ASPIRIN EC 81 MG TAB PO SCH (08:30)
[2022-10-15] MEDS: PIPER TAZO 2.25 GM in NA CHLORIDE 0.9% 50 ML IV SCH ×2 (08:31→16:38)
[2022-10-15] MEDS ORDERED: HOME MED 1 EA UNK (Cholecalciferol (Vitamin D3) [Vitamin D3] 25 MCG Capsule) PO SCH (09:00)
--- NOTE | 2022-10-15 10:35 | P.CNS ---
Date of Consult: 10/15/22 Reason for Consult: ESRD Requesting Physician: Theodore Vanessa Primary Care Provider: Dr. Vanessa Chief Complaint: Abdominal Pain History of Present Illness: 09:46 This 77 yrs old Black Male presents to ER via Wheelchair with complaints of sb4 Nausea/Vomiting, Flank Pain. 09:46 The patient presents to the emergency department with nausea, that is mild, abdominal sb4 pain, of the right upper quadrant and right lower quadrant, and does not radiate. Onset: The symptoms/episode began/occurred 6 day(s) ago. Possible causes: unknown. The symptoms are aggravated by nothing. The symptoms are alleviated by nothing. Associated signs and symptoms: Pertinent positives: abdominal pain, nausea, vomiting, Pertinent negatives: constipation, diarrhea, dysuria, fever, GI bleeding, hematuria. The patient has been recently seen by a physician: in the hospital, [facility] 5 day(s) ago. 77 year old male ESRD, hypertension, diabetes states he started having right sided abdominal pain for 6 days now. He was seen and admitted at [facility] for colitis, stayed for 2 days with antibiotics. States the pain has not gotten any better. He missed dialysis today because he was vomiting.. Allergies No Known Allergies Allergy (Verified 03/21/19 09:42) Home medications list reviewed: Yes Home Medications: Doxazosin [Cardura*] 2 mg PO M,W,F 07/07/14 Folic Acid 1 mg PO DAILY 07/07/14 Levothyroxine [Synthroid*] 50 mcg PO DAILY 07/07/14 Amlodipine Besylate [Norvasc] 5 mg PO DAILY 01/25/18 Atorvastatin Calcium [Lipitor] 20 mg PO BEDTIME 01/25/18 allopurinoL [Allopurinol] 1 tab PO DAILY 09/05/18 Aspirin [Aspirin EC 81 MG] 1 tab PO DAILY 08/07/21 Cholecalciferol (Vitamin D3) [Vitamin D3] 1 cap PO DAILY 10/30/21 Benzonatate [Tessalon Perle] 100 mg PO TID 10/14/22 Levofloxacin [Levaquin] 250 mg PO DAILY 10/14/22 Pantoprazole Sodium 40 mg PO DAILY 10/14/22 - Past Medical/Surgical History Diabetic: Yes -: Lupus -: HTN -: NIDDM -: CVA 2003 -: ESRD (Dr. Avery) -: Anemia -: Hypothyroidism -: Cholecystectomy - Family History Father Medical History: Hypertension, Diabetes Mother Medical History: Hypertension, Diabetes Brother Medical History: Hypertension, Diabetes Sister Medical History: Hypertension, Diabetes - Social History Smoking Status: Never smoker Alcohol use: No CD- Drugs: No Caffeine use: No Place of Residence: Home Domestic Violence: Patient's denies sexual, physical, or financial abuse. Review of Systems 10-point ROS is otherwise unremarkable General: Weakness, Malaise Physical Examination Temp Pulse Resp BP Pulse Ox 97.4 F 69 16 143/73 H 96 10/15/22 04:00 10/15/22 08:30 10/15/22 04:00 10/15/22 08:30 10/15/22 04:00 General: In no apparent distress, Oriented x3, Cooperative HEENT: Atraumatic Neck: Supple Respiratory: Clear to auscultation bilaterally Cardiovascular: No edema, Regular rate/rhythm Gastrointestinal: Soft and benign, Non-distended, No guarding Musculoskeletal: No clubbing, No contractures Integumentary: No rashes, No cyanosis Neurological: Normal speech Laboratory Data (last 24 hrs) 10/14/22 10:25: Sodium 134 L, Potassium 4.9, BUN 51 H, Creatinine 7.48 H*, Glucose 100, Total Bilirubin 0.6, AST 13 L, ALT 14 L, Alkaline Phosphatase 59, Lipase 31 10/14/22 10:05: WBC 7.40, Hgb 10.7 L, Hct 34.8 L, Plt Count 156 Imagings Data: EXAM DESCRIPTION: CT - Chest Abd Pelvis Wo Con - 10/14/2022 10:27 am CLINICAL HISTORY: Vomiting, abdominal pain. Recent history of hospital admission for intestinal infection PAIN COMPARISON: THORAX WO CONTRAST dated 12/07/2014; THORAX WO CONTRAST dated 08/20/2014; THORAX WO CONTRAST dated 07/09/2014; Abdomen Pelvis Wo Contrast dated 08/06/2021 TECHNIQUE: Axial thin cut CT images of the chest, abdomen, and pelvis, performed without IV contrast. Multiplanar reformats were generated and reviewed. All CT scans are performed using dose optimization technique as appropriate and may include automated exposure control or mA/KV adjustment according to patient size. FINDINGS: Perihilar atelectatic changes in the lower lobes bilaterally. Dependent ground-glass opacities and micro nodularity in the left upper and lower lobes. Associated small calcifications along the left lower lobe.Small layering bilateral pleural effusions. No pneumothorax. Moderate cardiomegaly with dense calcifications at the mitral and aortic valve annulus.Mildly prominent mediastinal and left more than right hilar lymph nodes, with dystrophic calcifications on the left. The liver, spleen, pancreas, adrenal glands and kidneys show no suspicious findings. Status post cholecystectomy. Scattered punctate calcifications in the liver and spleen. Few new small calcifications in the region of the aryan hepatis and epigastrium, could reflect small calcified lymph nodes. No bowel obstruction, free air, free fluid or abscess. Normal appendix. No pathologic lymphadenopathy in the abdomen or pelvis. No worrisome osseous finding. Extensive subcutaneous calcifications again seen. IMPRESSION: Small bilateral pleural effusions. Ground-glass opacities and micro nodularity in the dependent left upper and lower lobes, could reflect pneumonitis. New mediastinal and more than hilar adenopathy with calcified lymph nodes in the left hilum. In conjunction with presence of calcifications within the liver, spleen, and epigastric lymph nodes as well as RADIOLOGY SERVICES REPORT (Continued) Name: ISHA WOODRUFF CC: Theodore Vanessa MD; Catherine Oliver MILTON LENORD / Report: [id number] Radiology Services Report Page 2 of 2 the subcutaneous soft tissues, the findings may relate to prior chronic granulomatous infection, versus sequelae of metabolic abnormalities such as hyperparathyroidism. No acute findings in the abdomen and pelvis. Conclusions/Impression: ESRD on HD MWF -HD TIW HTN with CKD/ CHF -Continue Amlodipine Diastolic CHF, chronic -HD with UF -Daily weight DM II with CKD -RISS Moderate malnutrition Decreased functional ability -Start Nepro -Start MVI Anemia in CKD -Retacrit MWF CKD MBD -Continue Vitamin D3 -Start Calcitriol -Start Renvela Thank you kindly for the consultation
[2022-10-15] MEDS: MORPHINE 2 MG/ML SYR IV PRN ×2 (15:15→23:16)
[2022-10-15] MEDS: ONDANSETRON 4 MG/2 ML VIAL IV PRN ×2 (15:15→23:18)
[2022-10-15] MEDS ORDERED: EPOETIN ALFA 10,000 UNIT/ML VIAL SQ SCH (20:00)
[2022-10-15] MEDS ORDERED: ATORVASTATIN 20 MG TAB PO SCH (21:00)
--- NOTE | 2022-10-15 22:07 | HP ---
Date of Admission: 10/14/2022 Chief Complaint: Congestion, coughing up mucus, and abdominal pain. History Of Present Illness: This is a 77-year-old male patient who went to [facility], past Wednesday on October 09, 2022 with abdominal pain, cough, congestion. and after he was evaluated in [facility] ER, he was admitted to the hospital and was discharged to go home on Wednesday, which is October 11 and he was discharged to go home with Levaquin 250 mg daily, benzonatate for cough, and pantoprazo le. He has been taking these medications as prescribed and yesterday he came to our emergency room a s he was not feeling any better and continued to cough up yellow to green colored mucus and continued to have right upper quadrant abdominal pain. Denies any vomiting, diarrhea, or constipation problem . After he was evaluated, he was admitted to the hospital. Allergies: NO KNOWN ALLERGIES. Review of Systems: Respiratory: As mentioned above. Gastrointestinal: As mentioned above. All other systems reviewed and negative. Medications: Atorvastatin 20 mg daily in the evening; allopurinol 100 mg daily; amlodipine 5 mg sid y; aspirin 81 mg daily; carvedilol 6.25 mg takes half a tablet on Wednesday, Wednesday, Wednesday; cholesty ramine daily; doxazosin 4 mg takes half a tablet daily; levothyroxine 50 mcg daily; folic acid 1 mg d aily; Levaquin 250 mg daily; pantoprazole 40 mg daily; and benzonatate 100 mg 3 times a day as needed for cough. Past Medical History: Significant for hypothyroidism, type 2 diabetes mellitus, hypertension, hyperl ipidemia, end-stage disease on hemodialysis, anemia due to chronic kidney disease, and thrombocytopen ia. Past Surgical History: Cataract surgery, cholecystectomy, and skin biopsy. Family History: Father and had diabetes and hypertension. Mother and had diabetes and hyp ertension. Brother with diabetes and hypertension and sister also with diabetes and hypertension. Social History: Negative for smoking, alcohol use. Physical Examination: Vital Signs: This morning temperature 97.4, pulse 60, respiratory rate 16, blood pressure 116/60, and oxygen saturation 96% on room air. Height 6 feet, weight 160 pounds. General: Awake, alert, oriented, not in distress. HEENT: Head atraumatic, normocephalic. Conjunctivae nonerythematous. Sclerae white. Mouth, no thr ush or edema noted. Ears/Nose, no mass, lesion, discharge noted. Neck: Supple. No JVD, lymph nodes, bruit, thyromegaly noted. Lungs: Bilateral good equal air entry. Clear to auscultation. No rhonchi. No rales. Heart: Normal heart sounds, no murmur or gallop. Abdomen: Mild right upper quadrant tenderness. Otherwise abdomen soft. No guarding or rigidity. N o distention. Bowel sounds normoactive. No hepatosplenomegaly. No bruit. Extremities: No leg edema. No calf tenderness. Skin: No rash, ulcer, cellulitis. Lymphatics: No lymph node enlargement in neck, supraclavicular, infraclavicular region. Neuro: No focal neurological deficit. Chest: Unremarkable. External Genitalia: Deferred. Rectal: Deferred. Laboratory Data: Yesterday white count 7.4, hemoglobin 10.7, and platelets 156. This morning white count 5.4, hemoglobin 9.6, and platelets 120. Yesterday sodium 134, potassium 4.9, chloride 100, bic arb 30, BUN 51, creatinine 7.48, and glucose 100. Liver function tests unremarkable. This morning s odium 133, potassium 5.2, chloride 100, bicarb 27, BUN 57, creatinine 8.29, and glucose 76. Lipase w as 31 yesterday. A, B and COVID-19 test negative. The CAT scan of chest, abdomen, and pelvis shows evidence of prior granulomatous infection and pneumonia. Impression: 1.Pneumonia. 2.Right upper quadrant abdominal pain. 3.End-stage renal disease, on hemodialysis. 4.Anemia due to chronic kidney disease. 5.Hypertension. 6.Type 2 diabetes mellitus. 7.Hyperlipidemia. 8.Hypothyroidism. Plan: Admit the patient to hospital for further evaluation and management of this problem. The the medical center ent is appropriate for inpatient and is expected to spend 2 midnights in hospital. Yesterday the [facility] room provider contacted me and informed me that the patient was told to have colitis in [facility], but we do not see any evidence of colitis. The patient was started on Levaquin and metr onidazole yesterday. After reviewing all the details with the patient's today we decided to dis continue these 2 antibiotics and I will start him on Zosyn per order. The patient had gallbladder [place] rgery in the past so at this point, right upper quadrant abdominal pain will not require any further intervention unless his symptoms gets worse. DVT prophylaxis will be given using Lovenox per order. For end-stage renal disease, we will consult [employer] for dialysis support. For hypertension, c ontinue antihypertensive medication per order and we will hold his blood pressure medication if systo lic blood pressure is less than 130 to 140 and appropriate parameters were written for blood pressure medications. For hyperlipidemia, continue his statin therapy and for hypothyroidism, continue levot hyroxine. For diabetes, he is not on any medication. No need for further intervention for diabetes at this time. Details of plan of treatment discussed with the patient and the patient's . I mae l see him tomorrow morning for followup. NADIA/MODL Voice ID: [id number]
[2022-10-15] MEDS ORDERED: MANNITOL 25% 12.5 GM/50 ML VIAL IV PRN (22:59)
[2022-10-15] MEDS ORDERED: NA CHLORIDE 0.9% 1,000 ML IV PRN (22:59)
[2022-10-15] MEDS ORDERED: ALBUMIN HUMAN 25% 50 ML IV SCH (23:00)
[2022-10-15] MEDS ORDERED: EPOETIN ALFA-EPBX 10,000 UNIT/ML VIAL ONE (23:25)
[2022-10-16] MEDS ORDERED: NA CHLORIDE 0.9% 250 ML ONE (00:32)
[2022-10-16] MEDS ORDERED: NA CHLORIDE 0.9% 50 ML ONE (00:32)
[2022-10-16] MEDS ORDERED: PIPERACIL/TAZO 2.25 GM VIAL IV ONE (00:40)
[2022-10-16] MEDS: PIPER TAZO 2.25 GM in NA CHLORIDE 0.9% 50 ML IV SCH ×2 (00:55→08:51)
[2022-10-16 04:13] LABS: Absolute Lymphocytes (CBC) 1.4 K/uL (0.7-4.9); Hematocrit 31.9 % (39.6-49.0); Lymphocytes % 25.2 % (15.3-44.8); MCV 92.9 fL (80-100); MPV 9.5 fL (7.6-11.3); RBC Red Blood Cell Count 3.44 M/uL (4.33-5.43)
[2022-10-16 05:13] VITALS: O2SAT 96
[2022-10-16 05:18] LABS: Potassium 5.8 mEq/L (3.5-5.1)
[2022-10-16] MEDS: LEVOTHYROXINE SOD 0.05 MG TABLET PO SCH (06:02)
[2022-10-16] MEDS: MORPHINE 2 MG/ML SYR IV PRN (07:16)
[2022-10-16] MEDS: INSULIN -REGULAR HUMAN 50 UNIT/0.5 ML ML SQ SCH ×2 (07:30→11:30)
[2022-10-16] MEDS: BENZONATATE 100 MG CAP PO SCH ×2 (08:51→14:00)
[2022-10-16] MEDS: AMLODIPINE 10 MG TAB PO SCH (08:51)
[2022-10-16] MEDS: allopurinoL 100 MG TAB PO SCH (08:52)
[2022-10-16] MEDS: SEVELAMER CARBONATE 800 MG TABLET PO SCH ×2 (08:52→12:00)
[2022-10-16] MEDS: ASPIRIN EC 81 MG TAB PO SCH (08:52)
[2022-10-16] MEDS: VITAMIN D 1000 UNIT TAB PO SCH (08:52)
[2022-10-16] MEDS: FOLIC ACID 1 MG TABLET PO SCH (08:53)
[2022-10-16] MEDS: NEPRO SHAKE 237 ML CAN PO SCH ×2 (08:53→14:00)
[2022-10-16] MEDS: PANTOPRAZOLE 40MG TABLET PO SCH (08:53)
[2022-10-16] MEDS: HEPARIN 5000 UNIT/ML 1 ML VIAL SQ SCH (08:53)
[2022-10-16] MEDS ORDERED: MULTIVITAMINS,THERAPEUT 1 TAB PO SCH (09:00)
[2022-10-16] MEDS ORDERED: CALCITROL 0.25 MCG CAP PO SCH (09:00)
[2022-10-16] MEDS ORDERED: DOXAZOSIN 4 MG TAB PO SCH (09:00)
[2022-10-16] MEDS ORDERED: DOCUSATE NA 100 MG CAP PO SCH (09:00)
--- NOTE | 2022-10-16 10:22 | P.PN ---
Date of Service: 10/16/22 Nephrology note (S) Pt has continued to have some Rt lower rib, RUQ pain, worse last night per pt's who is at beside. Pt is a poor historian and is lethargic and not able to elaborate much on symptoms Physical Examination Vitals reviewed in the EMR General: NAD, thin, frail HEENT: Atraumatic, sclera anicteric, O2 Neck: Supple Respiratory: b/l air entry, poor effort, reduced BS at the bases b/l Cardiovascular: No edema, Regular rate/rhythm Gastrointestinal: Soft and benign, Non-distended, No guarding Musculoskeletal: Rt lower rib tenderness slightly Neurological: Awake, responds briefly, slowly, generalized weakness Laboratory Data (last 24 hrs) Reviewed Imagings Data: EXAM DESCRIPTION: CT - Chest Abd Pelvis Wo Con - 10/14/2022 10:27 am CLINICAL HISTORY: Vomiting, abdominal pain. Recent history of hospital admission for intestinal infection PAIN COMPARISON: THORAX WO CONTRAST dated 12/07/2014; THORAX WO CONTRAST dated 08/20/2014; THORAX WO CONTRAST dated 07/09/2014; Abdomen Pelvis Wo Contrast dated 08/06/2021 TECHNIQUE: Axial thin cut CT images of the chest, abdomen, and pelvis, performed without IV contrast. Multiplanar reformats were generated and reviewed. All CT scans are performed using dose optimization technique as appropriate and may include automated exposure control or mA/KV adjustment according to patient size. FINDINGS: Perihilar atelectatic changes in the lower lobes bilaterally. Dependent ground-glass opacities and micro nodularity in the left upper and lower lobes. Associated small calcifications along the left lower lobe.Small layering bilateral pleural effusions. No pneumothorax. Moderate cardiomegaly with dense calcifications at the mitral and aortic valve annulus.Mildly prominent mediastinal and left more than right hilar lymph nodes, with dystrophic calcifications on the left. The liver, spleen, pancreas, adrenal glands and kidneys show no suspicious findings. Status post cholecystectomy. Scattered punctate calcifications in the liver and spleen. Few new small calcifications in the region of the aryan hepatis and epigastrium, could reflect small calcified lymph nodes. No bowel obstruction, free air, free fluid or abscess. Normal appendix. No pathologic lymphadenopathy in the abdomen or pelvis. No worrisome osseous finding. Extensive subcutaneous calcifications again seen. IMPRESSION: Small bilateral pleural effusions. Ground-glass opacities and micro nodularity in the dependent left upper and lower lobes, could reflect pneumonitis. New mediastinal and more than hilar adenopathy with calcified lymph nodes in the left hilum. In conjunction with presence of calcifications within the liver, spleen, and epigastric lymph nodes as well as RADIOLOGY SERVICES REPORT (Continued) Name: KACYISHA KITCHEN CC: Theodore Vanessa MD; Catherine Oliver MILTON LENORD / Report: [id number] Radiology Services Report Page 2 of 2 the subcutaneous soft tissues, the findings may relate to prior chronic granulomatous infection, versus sequelae of metabolic abnormalities such as hyperparathyroidism. No acute findings in the abdomen and pelvis. Conclusions/Impression: ESRD on HD MWF -HD today, see orders for details HTN with CKD but with relative hypotension and orthostatic hypotension and falls at one point several months ago -Meds were scaled back then and pt was given holding parameters, would lower CCB and alpha alice dose. Diastolic CHF, chronic -Small pleural effusions, will review UF goals and EDW Moderate malnutrition Decreased functional ability -Start Nepro -Start MVI Rt lower rib pain, RUQ pain Unclear etiology, possible pleuritis, CT scan has been done at [facility] and here. Terry Packer MD, SHAYAN
[2022-10-16 10:29] VITALS: BP 122/50; TEMP 97.4
--- NOTE | 2022-10-16 21:46 | DS ---
Date of Discharge: 10/16/2022 Physical Examination: HEENT: Unremarkable. Lungs: Clear to auscultation. Heart: Sounds normal. Abdomen: Soft. Bowel sounds normal. No guarding, rigidity, tenderness, or distention. Extremities: No leg edema. Discharge Medications And Instructions: 1.Continue all prior home medications. 2. daily for 1 week and prescription will be sent to your Pharmacy from office. 3.May take Tylenol 500 mg 4 times a day as needed for pain. 4.Follow up at my office next week. Call office for appointment. Laboratory Data: Upon admission: White count 7.4, hemoglobin 10.7, and platelets 156. Today white count . Today sodium 129, potassium 5.8, chloride 99, bicarb 28, BUN 61, creatinine 9.22, and glucose 92. Hospital Course: This is a 77-year-old male patient admitted to the hospital after he came into [facility] room feeling weak, cough, congestion, coughing up some colored mucus, and right upper quadrant abdominal pain. Please see dictated H and P for more information. The patient's workup done in the emergency room showed a negative test for influenza A, B and COVID-19. CAT scan of the chest, abdome n, and pelvis showed evidence of prior granulomatous infection and pneumonia. He was admitted to [facility] for right upper quadrant pain. Actually, it does not have any acute intraabdominal etiology. The patient had cholecystectomy done in the past and there was no other abnormality noted to explain pain in the right upper quadrant. His pain is in the right upper quadrant and right lower anterior c hest area, so I suspect that this is pleuritic type of pain and musculoskeletal type of pain in natur e. He received some morphine in the hospital and reported that the patient slept most of the da ys and this is due to side effect from morphine, but upon discharge, I have advised to give him Tylenol as needed for the pain. He was taking Levaquin 250 mg daily as prescribed from [facility] last weekend and I have advised her to discontinue that and start new antibiotic, which is Augme ntin. The patient will receive his dialysis today and after the dialysis, our plan is to discharge h im to go home. Final Diagnoses: 1.Pneumonia. 2.Right-sided pleuritic pain. 3.Right upper quadrant abdominal pain. 4.End-stage renal disease, on hemodialysis. 5.Hyponatremia. 6.Hyperkalemia. 7.Anemia due to chronic kidney disease. 8.Hypertension. 9.Type 2 diabetes mellitus. 10.Hyperlipidemia. 11.Hypothyroidism. NADIA/MODL Voice ID: [id number] Report ID: [id number]
[2022-10-17] MEDS ORDERED: AMLODIPINE 5 MG TAB PO SCH (09:00)
[2022-10-17] MEDS ORDERED: DOXAZOSIN 2 MG TAB PO SCH (21:00)
== END 2022-10-16 15:29 | disposition home or self-care (01) | DRG 193 ==
LOC: ER 09:16 → ERHOLD 13:42 → 2ND 14:56
PROVIDERS: ADMIT Internal Medicine; ATTEND Internal Medicine
PROC: 5A1D70Z Performance of Urinary Filtration, Intermittent, Less than 6 Hours Per Day (ICD-10-PCS; principal; 2022-10-16)
DX: J18.9 Pneumonia, unspecified organism (principal); N18.6 End stage renal disease; E44.0 Moderate protein-calorie malnutrition; I13.2 Hypertensive heart and chronic kidney disease with heart failure and with stage 5 chronic kidney disease, or end stage renal disease; I50.32 Chronic diastolic (congestive) heart failure; E87.1 Hypo-osmolality and hyponatremia; E11.22 Type 2 diabetes mellitus with diabetic chronic kidney disease; D63.1 Anemia in chronic kidney disease; E03.9 Hypothyroidism, unspecified; I95.1 Orthostatic hypotension; E78.5 Hyperlipidemia, unspecified; E86.0 Dehydration; Z99.2 Dependence on renal dialysis; Z79.82 Long term (current) use of aspirin; Z91.15 Patient's noncompliance with renal dialysis; Z68.21 Body mass index [BMI] 21.0-21.9, adult; Z86.73 Personal history of transient ischemic attack (TIA), and cerebral infarction without residual deficits; Z90.49 Acquired absence of other specified parts of digestive tract; Z79.890 Hormone replacement therapy; Z79.899 Other long term (current) drug therapy; Z20.822 Contact with and (suspected) exposure to COVID-19
CPT/HCPCS: 0240U; 36415; 71250; 74176; 80048; 80053; 80061; 82947; 83690; 83735; 84100; 85025; 90935; 97110; 97161; 99285; J1644; J2270; J2405; J2543; J7050; Q5106

== ENCOUNTER 2022-12-16 14:34 | Emergency (ER) | payer OTHER ==
--- OUTSIDE RECORDS SUMMARY | 2022-12-16 14:47 | XMS REPORT | Continuity of Care Document ---
:1945 Author Organization [facility] t Address [address] [place] [address]. [address] [place] [address] Care Team Providers Name Role Phone Rasheeda [...] Expiration Date Jone hayward MEDICARE PART A [id number] 1996 \\T\\ B 00:00:00 [employer] INDEMNITY [id number] 2017 00:00:00 Problems Condition Condition Condition Status Onset Resolution Last Treating Co mments Source Name Details Category Date Date Treatment Clinician Date Right Right Disease Active 2022-0 Univers lower lower 3-10 ity of quadrant quadrant 00:00: [place] abdominal abdominal 00 Medi jimenez pain pain Branch FUO (fever FUO (fever Disease Active 2021-08 U nivers of unknown of unknown 2-12 it y of origin) origin) 00:00: [place] [facility] Aortic Aortic Disease Active 2021-0 Univers stenosis stenosis 9-30 ity of 00:00: [place] [facility] Bradycardi Bradycardi Disease Active 2021-0 U nivers a a 9-25 ity of 00:00: [place] [facility] ESRD ESRD Disease Active 2021-0 Univers needing needing 9-25 ity of dialysis dialysis 00:00: [place] [facility] 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 ICD10 Diagnosis Term Donor Support Technician Utility Lupus Lupus Disease Active 2013-08 Univers nephritis nephritis 08-27 ity of 00:00: [place] [facility] Fever Fever Disease Active 2013-08 Univers 08-27 ity of 00:00: [place] [facility] DM DM Disease Active 2013-08 Univers (diabetes (diabetes 08-27 ity of mellitus) mellitus) 00:[place] HLD HLD Disease Active 2013-08 Univers (hyperlipi (hyperlipi 08-27 it y of demia) demia) 00:00: [place] [facility] Weakness Weakness Disease Active 2013-08 Unive rs 08-27 ity of 00:00: [place] [facility] Systemic Systemic Disease Active Last [...] Active Univers ALLERGIE Class ity of S [place] [facility] Family History Family Member Diagnosis Comments Start Date Stop Date Source Natural sister No Known Problems Met [facility] sister Lupus [facility] brother Lupus [facility] brother [facility] Natural father Hypertension [facility] mother Diabetes [facility] Social History Social Habit Start Date Stop Date Quantity Comments Source History of tobacco Passive smoker Un iversity of use [place] [facility] History SDOH Social Unive rsity of Connections [facility] Med ical Together Branch History SDOH Social Unive rsity of Connections [facility] Medical Branch History SDOH Social Unive rsity of Connections [place] [facility] Membership Branch History SDOH Social Unive rsity of Connections [place] [facility] Meetings Branch Gender identity [facility] Sexual orientation Method ist Hospital Exposure to 2022-09-29 2022-10-09 Not sure University of SARS-CoV-2 (event) 00:00:00 06:46:00 [place] [facility] History SDOH 2022-07-14 2022-07-14 1 University o f Alcohol Frequency 00:00:00 00:00:00 [place] M edical [facility] History SDOH 2022-07-14 2022-07-14 0 University o f Alcohol Std Drinks 00:00:00 00:00:00 [place] [facility] History SDOH 2022-07-14 2022-07-14 1 University o f Alcohol Binge 00:00:00 00:00:00 [place] Medic al Branch History SDOH Social 2022-07-14 2022-07-14 1 Unive rsity of Connections Phone 00:00:00 00:00:00 [place] M edical Branch History SDOH Social 2022-07-14 2022-07-14 3 Unive rsity of Connections Living 00:00:00 00:00:00 [place] [facility] History SDOH 2022-07-14 2022-07-14 0 University o f Physical Activity 00:00:00 00:00:00 [place] M edical DPW Branch History SDOH 2022-07-14 2022-07-14 0 University o f Physical Activity 00:00:00 00:00:00 [facility] edical MPS Branch History SDOH 2022-07-14 2022-07-14 5 University o f Financial 00:00:00 00:00:00 [place] [facility] History SDOH Food 2022-07-14 2022-07-14 1 Univers ity of Worry 00:00:00 00:00:00 [place] [facility] History SDOH Food 2022-07-14 2022-07-14 1 Univers ity of Scarcity 00:00:00 00:00:00 [place] [facility] History SDOH 2022-07-14 2022-07-14 2 University o f Transport Med 00:00:00 00:00:00 [place] Medic al Branch History SDOH 2022-07-14 2022-07-14 2 [place] o f Transport Non-Med 00:00:00 00:00:00 [facility] Tobacco use and 2022-07-13 2022-07-13 Smokeless Universit y of exposure 00:00:00 00:00:00 tobacco non-user [facility] dical Branch Education 2022-04-26 2022-04-26 21 University 00:00:00 00:00:00 [facility] Alcohol intake 2019-08-08 2019-08-08 Current Rastafari 00:00:00 00:00:00 non-drinker of Hospital alcohol (finding) History of Social 2019-07-31 2019-07-[address] function 00:00:00 00:00:00 Hospital Sex [birth year] At [birth year] Rastafari 00:00:00 00:00:00 Hospital Smoking Status Start Date Stop Date Source Never smoked tobacco [facility] Medications Ordered Filled Start Stop Current Ordering Indication Dosage Frequency Signature Comments Components Source Medication Medication Date Date Medication? Clinician (SIG) Name Name lidocaine Yes [id number] 1{patch Apply 1 Univers % (700 3-13 105 } Patch to ity of mg/patch) 00:00: area(s[place] in [place] patch 00 the Medical morning. Branch lidocaine Yes [id number] 1{patch Apply 1 Univers % (700 3-13 105 } Patch to ity of mg/patch) 00:00: area(s[place] in [place] patch 00 the Medical morning. Branch HYDROcodone 2022-0 202- Yes 1{tbl} 1 tablet, Univers -acetaminop -12 10-13 Oral, ity of hen (NORCO 16:58: 16:57 Q6HPRN, [place] 5) 5-325 mg 10 :10 Starting Medi jimenez tablet 1 on Sun Branch tablet 10/11/22 at 1158, Until 10/13/22 at 1157, Routine, Pain (scale 4-6), Pain (scale 7-10) atorvastati 2022-0 Yes [id number] 20mg Take 0.5 Univers n 40 mg 3-12 tablets by ity of tablet 15:14: mouth [place] 33 every Medical evening. Branch aspirin 81 2022-0 Yes 81mg Take 1 Unive rs mg chewable 3-12 tablet by ity of tablet 15:14: mouth in [place] [address] the Medical morning. Branch foLIC acid 2022-0 Yes 1mg Take 1 Unive rs 1 mg tablet 3-12 tablet by ity of 15:14: mouth in [place] [address] the Medical morning. Branch allopurinoL 0 Yes 100mg Take 1 Uni vers 100 mg 3-12 tablet by ity of tablet 15:14: mouth in [place] [address] the Medical morning. Branch ferric 2022-0 Yes [...] every Medical morning. Branch atorvastati 2022-0 Yes [id number] 20mg Take 0.5 Univers n 40 mg 3-12 tablets by ity of tablet 15:14: mouth [place] 33 every Medical evening. Branch aspirin 81 2022-0 Yes 81mg Take 1 Unive rs mg chewable 3-12 tablet by ity of tablet 15:14: mouth in [place] [address] the Medical morning. Branch foLIC acid 0 Yes 1mg Take 1 Unive rs 1 mg tablet 3-12 tablet by ity of 15:14: mouth in [place] [address] the Medical morning. Branch allopurinoL 2022-0 Yes 100mg Take 1 Uni vers 100 mg 3-12 tablet by ity of tablet 15:14: mouth in [place] [address] the Medical morning. Branch ferric 2022-0 Yes 210mg Take 210 Univer s citrate 3-12 mg by ity of (AURYXIA) 15:14: mouth 3 [place] 210 mg iron 33 (three) Medic al Tab times [place] daily. 2 tab 3x with meals 1 tab with a snack Cholestyram 2022-0 Yes 4g Take 1 Univ ers ine Light 4 3-12 Packet by ity of gram powder 15:14: mouth 3 [place] 33 (three) Medical times [place] daily as needed. levothyroxi 0 Yes 50ug Take 1 Univ ers ne 50 mcg 3-12 tablet by ity o f tablet 15:14: mouth [place] [address] every Medical morning. Branch amLODIPine 2022-0 2022- No 5mg Take 0.5 Un mahsa (NORVASC) 10-1112 tablets by ity of 10 mg 13:40: 00:00 mouth in [place] tablet 16 :00 the Medical morning. Branch Take 1/2 tablet once a day doxazosin 4 2022-0 2022- No 2mg Take 0.5 U nivers mg tablet 12 -12 tablets by ity of 13:40: 00:00 mouth [place] 16 :00 every Medical evening. Branch Take 1/2 tablet at bedtime benzonatate 2022-0 Yes 100mg 100 mg, Un mahsa (TESSALON 3-12 Oral, ity of MASOUD) 04:45: Q8HPRN, [place] capsule 100 33 Starting Medi jimenez mg on Sat [place] 10/10/22 at 2245, Until Discontinu ed, Routine, Cough codeine-gua 2022-0 2023- No 5mL 5 mL, Univ ers ifenesin -07 04-12 Oral, ity of (ROBITUSSIN 04:44: 18:32 Q6HPRN, [place] AC) 10-100 47 :07 Starting Medic al mg/5 mL on Sat Branch oral 10/10/22 at solution 5 2244, mL Until 10/11/22 at 1332, Routine, Cough benzonatate 0 Yes 100mg 100 mg, Un mahsa (TESSALON 3-12 Oral, Q8H, ity of PERLES) 04:00: First dose [place] capsule 100 00 on [facility] Medica l mg 10/10/22 at Branch 2200, Until Discontinu ed, Routine pantoprazol 0 Yes 20mg 20 mg, Univ ers e 3-12 Oral, BID, ity of (PROTONIX) 02:00: First dose [place] EC tablet 00 on [facility] Medical 20 mg 10/10/22 at Branch 2000, Until Discontinu ed, Routine mupirocin 2022- Yes Nasal, Unive rs (BACTROBAN 10-11 03-17 Q12H, 10 ity of NASAL OINT) 02:00: 00:59 doses, [place] 2 % nasal 00 :00 First dose Medi jimenez ointment on [facility] Branch 10/10/22 at 1999, Last dose on [place] 10/15/22 at 0800, Routine epoetin 2022- No [id number] 10,000 Unive rs will-epbx -12 03-12 Units, ity of (RETACRIT) 02:00: 03:21 Subcutaneo [place] injection 00 :00 us, ONCE Medica l 10,000 AT 1999, 1 Branch Units dose, On [facility] 10/10/22 at 1999, Routine
member services representative approving Restricted medication : ROSA M RUTH benzonatate 0 Yes [id number] 100mg Take 1 Univers 100 mg 3-12 105 capsule by ity of capsule 00:00: mouth [place] 00 every 8 Medical (eight) Branch hours as needed for Cough. pantoprazol 2022-0 Yes [id number] 40mg Take 1 Univers e 40 mg EC 3-12 105 tablet by ity of tablet 00:00: mouth in [place] 00 the Medical morning. Branch levoFLOXaci 2022-0 Yes [id number] 250mg Take 1 Univers n 250 mg 3-12 105 tablet by ity of tablet 00:00: mouth in [place] 00 the Medical morning. Branch acidophilus 0 Yes [id number] 1g Take 1 Univers 100 million 3-12 105 tablet by ity of cell tablet 00:00: mouth in [place] 00 the Medical morning Branch and 1 tablet in the evening. benzonatate 2022-0 Yes [id number] 100mg Take 1 Univers 100 mg 3-12 105 capsule by ity of capsule 00:00: mouth [place] 00 every 8 Medical (eight) Branch hours as needed for Cough. pantoprazol 2022-0 Yes [id number] 40mg Take 1 Univers e 40 mg EC 3-12 105 tablet by ity of tablet 00:00: mouth in [place] 00 the Medical morning. Branch levoFLOXaci 2022-0 Yes [id number] 250mg Take 1 Univers n 250 mg 3-12 105 tablet by ity of tablet 00:00: mouth in [place] 00 the Medical morning. Branch acidophilus 2022-0 Yes [id number] 1g Take 1 Univers 100 million 3-12 105 tablet by ity of cell tablet 00:00: mouth [place] 00 the Medical morning Branch and 1 tablet in the evening. lidocaine 2022-0 2023- No [id number] 20mL 20 mL, U nivers 1% (PF) - 03-11 Subcutaneo ity o f (XYLOCAINE) 19:15: 19:15 , [place] injection 00 :00 DIALYSIS Medica l 20 mL ONCE - PT Branch ROOM, 1 dose, On [facility] 10/10/22 at 1315, ANGELA ergocalcife 2022-0 Yes [id number] 50,000 Un mahsa rol 3-11 Units, ity of (vitamin 15:00: Oral, [place] d2) 00 QWEEKLY, Medical (CALCIFEROL First dose Br anch ) capsule on [facility] 50,000 10/10/22 at Units 0900, Until Discontinu ed, Routine foLIC acid 2022-0 Yes 1mg 1 mg, Univer s (FOLATE) -11 Oral, ity of tablet 1 mg 15:00: DAILY, [place] 00 First dose Medical on [facility] 10/10/22 at 0900, Until Discontinu ed, Routine aspirin 2022-0 Yes 81mg 81 mg, Univers chewable 10-10 Oral, ity of tablet 81 15:00: DAILY, [place] mg 00 First dose Medical on [facility] 10/10/22 at 0900, Until Discontinu ed, Routine allopurinoL 2022-0 Yes 100mg 100 mg, Un mahsa (ZYLOPRIM) 3-11 Oral, ity of tablet 100 15:00: DAILY, [place] mg 00 First dose Medical on [facility] Branch 10/10/22 at 0900, Until Discontinu ed, Routine calcium 2022-0 Yes 667mg 667 mg, Univer s acetate(lakhwinder 11 Oral, TID ity of sphat bind) 14:00: MEALS, [place] (PHOSLO) 00 First dose Medic al capsule 667 on [facility] mg 10/10/22 at 0800, Until Discontinu ed, Routine levothyroxi 2022-0 Yes 50ug 50 mcg, Uni vers ne 11 Oral, ity of (SYNTHROID) 12:00: QAM-0600, [place] tablet 50 00 First dose Medi jimenez mcg on [facility] 10/10/22 at 0600, Until Discontinu ed, Routine heparin 2022-0 Yes 5000U 5,000 Univers (porcine) 10-10 Units, ity of injection 02:00: Subcutaneo [place] [...] Yes 1{patch 1 Patch, U nivers (LIDODERM) 10-09 } Topical, ity o f 5 % (700 18:00: Administer [place] mg/patch) 00 over 12 Medical patch 1 Hours, Branch Patch DAILY, First dose on Wed10/09/22 at 1200, Until Discontinu ed, Routine sucralfate 2022-0 202- No 1g 1 g, Oral, Univers (CARAFATE) 10-09 QID, First it y of tablet 1 g 17:45: 21:59 dose on [place] 00 :22 Fri Medical 10/09/22 at Branch 1145, Until Discontinu ed, Routine pantoprazol 2022-0 2022- No 40mg 40 mg, Uni vers e 3-10 03-11 Slow IV ity of (PROTONIX) 17:45: 21:59 Push, [place] injection 00 :27 Q12H, Medical 40 mg First dose Branch on Wed10/09/22 at 1145, Until Discontinu ed dextrometho 2022- No 10mL 10 mL, Uni vers rphan-guaif 10-09 Oral, ONCE i ty of enesin 15:30: 14:32 NOW, 1 [place] (ROBITUSSIN 00 :00 dose, On Medi jimenez DM) 10-100 Fri Branch mg/5 mL 10/09/22 at solution 10 0930, mL Routine HYDROcodone 2022- No 1{tbl} 1 tablet, Univers -acetaminop 10-09 Oral, ity of hen (NORCO) 15:10: 16:58 Q6HPRN, [place] 10-325 mg 38 :40 Starting Medica l tablet 1 on Fri Branch tablet 10/09/22 [...] No 4mg 4 mg, Slow Univers (ZOFRAN 3-10 03-10 IV Push, ity of (PF)) 13:15: 13:36 ONCE, 1 [place] injection 4 00 :00 dose, On Medi jimenez mg Wed10/09/22 at 0715, ANGELA NaCl 0.9% 2022- No [...] Medical (NS) 250 mL mg/kg ?73 [facility] VIAL-MATE kg), IV IV Piggyback, piggyback Q48H [...] 03:00: First dose [place] 00 on Wed Medical 07/14/22 Branch at 2100, Until Discontinu ed, Routine amLODIPine 2021-08 Yes 5mg 5 mg, Univer s (NORVASC) 2-14 Oral, QHS, ity of tablet 5 mg 03:00: First dose [place] 00 (after Medical last Branch modificati on) [...] First dose [place] mg 00 on [facility] 07/14/22 Branch at 1700, Until Discontinu ed, Routine amLODIPine 2021-08 Yes 5mg Take 5 mg Un mahsa (NORVASC) 2-13 by mouth ity of 10 mg 18:13: in the [place] [facility] morning. Medical Take 1/2 Branch tablet once a day doxazosin 4 2021-08 Yes 2mg Take 2 mg U nivers mg tablet 2-13 by mouth ity of 18:13: every [place] [address] evening. Medical Take 1/2 Branch tablet at bedtime atorvastati 2021-08 Yes [id number] .5{tbl} Take 0.5 Univers n 40 mg 2-13 tablets by ity of tablet 18:13: mouth [place] 06 every Medical evening. Branch aspirin 81 2021-08 Yes 81mg Take 81 mg U nivers mg chewable 2-13 by mouth ity of tablet 18:13: daily. [address] Branch foLIC acid 2021-08 Yes 1mg Take 1 mg Un mahsa 1 mg tablet 2-13 by mouth ity of 18:13: daily. [address] Branch allopurinoL 2021-08 Yes 100mg Take 100 U nivers 100 mg 2-13 mg by ity of tablet 18:13: mouth in [place] 06 the Medical morning. Branch ferric 2021-08 Yes [...] mcg by ity of tablet 18:13: mouth [place] [address] every Medical morning. Branch amLODIPine 2021-08 Yes 5mg Take 5 mg Un mah[place] (NORVASC) 2-13 by mouth ity of 10 mg 18:13: in the [place] [facility] morning. Medical Take 1/2 Branch tablet once a day doxazosin 4 2021-08 Yes 2mg Take 2 mg U nivers mg tablet 2-13 by mouth ity of 18:13: every [place] [address] evening. Medical Take 1/2 Branch tablet at bedtime atorvastati 2021-08 Yes [id number] .5{tbl} Take 0.5 Univers n 40 mg 2-13 tablets by ity of tablet 18:13: mouth [place] [address] every Medical evening. Branch aspirin 81 2021-08 Yes 81mg Take 81 mg U nivers mg chewable 2-13 by mouth ity of tablet 18:13: daily. [address] Branch foLIC acid 2021-08 Yes 1mg Take 1 mg Un mahsa 1 mg tablet 2-13 by mouth ity of 18:13: daily. [address] Branch allopurinoL 2021-08 Yes 100mg Take 100 U nivers 100 mg 2-13 mg by ity of tablet 18:13: mouth in [place] [address] the Medical morning. Branch ferric 2021-08 Yes 210mg Take 210 Univer s citrate 2-13 mg by ity of (AURYXIA) 18:13: mouth 3 [place] 210 mg iron 06 (three) Medic al [...] mcg by ity of tablet 18:13: mouth [place] [address] every Medical morning. Branch amLODIPine 2021-08 Yes 5mg Take 5 mg Un [facility] (NORVASC) 2-13 by mouth ity of 10 mg 18:13: in the [place] tablet morning. Medical Take 1/2 Branch tablet once a day doxazosin 4 2021-08 Yes 2mg Take 2 mg U nivers mg tablet 2-13 by mouth ity of 18:13: every [place] 06 evening. Medical Take 1/2 Branch tablet at bedtime atorvastati 2021-08 Yes [id number] .5{tbl} Take 0.5 Univers n 40 mg 2-13 tablets by ity of tablet 18:13: mouth [place] every Medical evening. Branch aspirin 81 2021-08 Yes 81mg Take 81 mg U nivers mg chewable 2-13 by mouth ity of tablet 18:13: daily. [place] [address] Medical Branch foLIC acid 2021-08 Yes 1mg Take 1 mg Un [place] 1 mg tablet 2-13 by mouth ity of 18:13: daily. [place] [address] Medical Branch allopurinoL 2021-08 Yes 100mg Take 100 U nivers 100 mg 2-13 mg by ity of tablet 18:13: mouth in [place] the Medical morning. Branch ferric 2021-08 Yes [...] 2-13 by mouth ity of 18:13: every [place] 06 evening. Medical Take 1/2 Branch tablet at bedtime atorvastati 2021-08 Yes [id number] .5{tbl} Take 0.5 Univers n 40 mg 2-13 tablets by ity of tablet 18:13: mouth [place] [address] every Medical evening. Branch aspirin 81 2021-08 Yes 81mg Take 81 mg U nivers mg chewable 2-13 by mouth ity of tablet 18:13: daily. [address] foLIC acid 2021-08 Yes 1mg Take 1 mg Un [place] 1 mg tablet 2-13 by mouth ity of 18:13: daily. [address] Branch allopurinoL 2021-08 Yes 100mg Take 100 U nivers 100 mg 2-13 mg by ity of tablet 18:13: mouth in [place] [address] the Medical morning. Branch ferric 2021-08 Yes [...] mcg by ity of tablet 18:13: mouth [place] [address] every Medical morning. Branch calcium 2021-08 Yes 1334mg 1,334 mg, Uni vers acetate(lakhwinder 2-13 Oral, TID ity of sphat bind) 18:00: MEALS, [place] (PHOSLO) 00 First dose Medic al capsule on [facility] 1,334 mg 07/14/22 at 1200, Until Discontinu ed, Routine cetirizine 2021-08 Yes 10mg 10 mg, Unive rs (ZYRTEC) 2-13 Oral, ity of tablet 10 15:00: DAILY, [place] mg 00 First dose Medical on [facility] 07/14/22 at 0900, Until Discontinu ed, Routine foLIC acid 2021-08 Yes 1mg 1 mg, Univer s (FOLATE) 2-13 Oral, ity of tablet 1 mg 15:00: DAILY, [place] 00 First dose Medical on [facility] 07/14/22 at 0900, Until Discontinu ed, Routine aspirin 2021-08 Yes 81mg 81 mg, Univers chewable 2-13 Oral, ity of tablet 81 15:00: DAILY, [place] mg 00 First dose Medical on Wed07/14/22 at 0900, Until Discontinu ed, Routine allopurinoL 2021-08 Yes 100mg 100 mg, Un mahsa (ZYLOPRIM) 2-13 Oral, ity of tablet 100 15:00: DAILY, [place] mg 00 First dose Medical on Wed07/14/22 at 0900, Until Discontinu ed, Routine heparin [...] Yes 4mg 4 mg, Slow Univers (ZOFRAN 2-13 IV Push, ity of (PF)) 04:41: [facility], [place] injection 4 36 Starting Medi jimenez mg on Wed07/13/22 at 2241, Until Discontinu ed, Routine, Nausea and Vomiting (N/V) traMADoL 2021-08 50mg 50 mg, Univer s (ULTRAM) 2-13 12-15 Oral, ity of tablet 50 04:41: 04:40 Q8HPRN, [place] mg 30 :30 Starting Medical on Wed07/13/22 at 2241, Until Wed07/15/22 at 2240, Routine, Pain (scale 4-6) acetaminoph 2021-08 Yes 650mg 650 mg, Un mahsa en 2-13 Oral, ity of (TYLENOL) 04:41: Q6HPRN, [place] tablet 650 28 Starting Medic al mg on Wed07/13/22 at 2241, Until Discontinu ed, Routine, Pain (scale 1-3) vancomycin 2021-08 No 15mg/kg 1,000 mg Univers (VANCOCIN) 09-14 (rounded ity of 1,000 mg in 01:30: 02:53 from 1,095 [place] NaCl 0.9% 00 :00 mg = 15 Medical (NS) 250 mL mg/kg ?73 [facility] VIAL-MATE kg), IV IV Piggyback, piggyback ONCE, 1 dose, On 07/13/22 at 1930, Administer over 60 Minutes, 250 mL
Reas on for Anti-Infec tive: Empiric Therapy for Suspected Infection< br>Empiric Therapy Site: Blood
D uration of therapy: 72 hours ceFEPIme 2021-08 No 1g 1 g, IV Unive rs (MAXIPIME) 09-14 Piggyback, it y of 1 g in NaCl 00:30: 01:08 ONCE, 1 [place] 0.9% (NS) 00 :00 dose, On Medica l 50 mL [facility] Branch MINI-BAG 07/13/22 at 1830, Administer over 30 Minutes, 50 mL
Reas on for Anti-Infec tive: Documented Infection< br>Documen terrance Infection Site: Blood
D uration of Therapy: Other (see Comments) calcium 2021-08- No [id number] 1334mg Take 2 U nivers acetate,lakhwinder 09-14 capsules ity of sphat bind, 00:00: 05:59 by mouth [place] 667 mg 00 :00 in the Medical capsule morning Branch and 2 capsules at noon and 2 capsules in the evening. Take with meals. Do all this for 30 days. calcium 2021-08- No [id number] 1334mg Take 2 U nivers acetate,lakhwinder 09-14 capsules ity of sphat bind, 00:00: 05:59 by mouth [place] 667 mg 00 :00 in the Medical capsule morning Branch and 2 capsules at noon and 2 capsules in the evening. Take with meals. Do all this for 30 days. calcium 2021-08- No [id number] 1334mg Take 2 U nivers acetate,lakhwinder 09-14 capsules ity of sphat bind, 00:00: 05:59 by mouth [place] 667 mg 00 :00 in the Medical capsule morning Branch and 2 capsules at noon and 2 capsules in the evening. Take with meals. Do all this for 30 days. acetaminoph 2021-08 No 975mg 975 mg, U nivers en 09-13-12 Oral, ity of (TYLENOL) 23:45: 22:57 ONCE, 1 [place] tablet 975 00 :00 dose, On Medic al mg Mon Branch 07/13/22 at 1745, ANGELA levothyroxi 2021-08 No 75ug Take 75 Un mahsa ne 75 mcg 09-13 12-12 mcg by ity of tablet 22:41: 00:00 mouth [place] 50 :00 daily. Medical Branch sodium 2021-08 No [id number] 325mg Take 325 U nivers bicarbonate 09-13 12-12 mg by ity of 325 mg 22:41: 00:00 mouth 2 [place] tablet 50 :00 (two) Medical times Branch daily. levothyroxi 2021-08 Yes 75ug Take 75 Uni vers ne 75 mcg 0-01 mcg by ity of tablet 15:39: mouth [place] 11 daily. Medical Branch amLODIPine 2021-08 Yes 10mg Take 10 mg U nivers (NORVASC) 0-01 by mouth ity of 10 mg 15:39: daily. [place] tablet 11 Medical Branch doxazosin 4 2021-08 Yes 4mg Take 4 mg U nivers mg tablet 0-01 by mouth 2 ity of 15:39: (two) [place] [address] times Medical daily. Branch atorvastati 2021-08 Yes [id number] .5{tbl} Take 0.5 Univers n 40 mg 0-01 tablets by ity of tablet 15:39: mouth [place] 11 daily. Medical Branch aspirin 81 2021-08 Yes 81mg Take 81 mg U nivers mg chewable 0-01 by mouth ity of tablet 15:39: daily. [address] Branch foLIC acid 2021-08 Yes 1mg Take 1 mg [place] 1 mg tablet 0-01 by mouth ity of 15:39: daily. [address] sodium 2021-08 Yes [id number] 325mg Take 325 Un mahsa bicarbonate 0-01 mg by ity of 325 mg 15:39: mouth 2 [place] tablet 11 (two) Medical times [place] daily. allopurinoL 2021-08 Yes 100mg Take 100 U nivers 100 mg 0-01 mg by ity of tablet 15:39: mouth in [place] [address] the Medical morning. Branch ferric 2021-08 Yes [...] powder 15:39: (three) [place] as 11 times [facility] daily with Branch meals. levothyroxi 2021-08 Yes 75ug Take 75 Uni vers ne 75 mcg 0-01 mcg by ity of tablet 15:39: mouth [place] [address] daily. Medical Branch amLODIPine 2021-08 Yes 10mg Take 10 mg U nivers (NORVASC) 0-01 by mouth ity of 10 mg 15:39: daily. [place] tablet [address] [place] [address] Branch doxazosin 4 2021-08 Yes 4mg Take 4 mg U nivers mg tablet 0-01 by mouth 2 ity of 15:39: (two) [place] [address] times [facility] daily. Branch atorvastati 2021-08 Yes [id number] .5{tbl} Take 0.5 Univers n 40 mg 0-01 tablets by ity of tablet 15:39: mouth [place] [address] daily. [facility] Branch aspirin 81 2021-08 Yes 81mg Take 81 mg U nivers mg chewable 0-01 by mouth ity of tablet 15:39: daily. [address] Branch foLIC acid 2021-08 Yes 1mg Take 1 mg Un mahsa 1 mg tablet 0-01 by mouth ity of 15:39: daily. [address] Branch sodium 2021-08 Yes [id number] 325mg Take 325 Un mahsa bicarbonate 0-01 mg by ity of 325 mg 15:39: mouth 2 [place] tablet 11 (two) Medical times [place] daily. allopurinoL 2021-08 Yes 100mg Take 100 U nivers 100 mg 0-01 mg by ity of tablet 15:39: mouth in [place] [address] the Medical morning. Branch ferric 2021-08 Yes [...] mcg by ity of tablet 15:39: mouth [place] [address] daily. Medical Branch amLODIPine 2021-08 Yes 10mg Take 10 mg U nivers (NORVASC) 0-01 by mouth ity of 10 mg 15:39: daily. [place] tablet 11 [facility] Branch doxazosin 4 2021-08 Yes 4mg Take 4 mg U nivers mg tablet 0-01 by mouth 2 ity of 15:39: (two) [place] 11 times Medical daily. Branch atorvastati 2021-08 Yes [id number] .5{tbl} Take 0.5 Univers n 40 mg 0-01 tablets by ity of tablet 15:39: mouth [place] [address] daily. Medical Branch aspirin 81 2021-08 Yes 81mg Take 81 mg U nivers mg chewable 0-01 by mouth ity of tablet 15:39: daily. [address] Branch foLIC acid 2021-08 Yes 1mg Take 1 mg Un mahsa 1 mg tablet 0-01 by mouth ity of 15:39: daily. [address] Branch sodium 2021-08 Yes [id number] 325mg Take 325 Un mahsa bicarbonate 0-01 mg by ity of 325 mg 15:39: mouth 2 [place] tablet 11 (two) Medical times Branch daily. allopurinoL 2021-08 Yes 100mg Take 100 U nivers 100 mg 0-01 mg by ity of tablet 15:39: mouth in [place] [address] the Medical morning. Branch ferric 2021-08 Yes [...] last nebulizer modificati solution 3 on) on [facility] 04/30/22 at 2000, Until Discontinu ed, Routine benzocaine- 0 Yes [id number] 1{lozen 1 Lozenge, Univers menthoL 04-30 ge} Oral, ity of (CEPACOL 22:22: Q4HPRN, [place] SORE THROAT 10 Starting Medi jimenez (SATNAM-MEN)) on [facility] Branch lozenge 1 04/30/22 at Lozenge 1722, Until Discontinu ed, Routine, Sore throat levothyroxi Yes 75ug 75 mcg, Uni vers ne 04-28 Oral, ity of (SYNTHROID) 11:00: QAM-0600, [place] tablet 75 00 First dose Medi jimenez mcg on [facility] Branch 04/28/22 at 0600, Until Discontinu ed, Routine epoetin 2021- No [id number] 10,000 Unive rs will-epbx 04-27- Units, ity of (RETACRIT) 14:45: 15:35 Intravenou [place] injection 00 :00 s, Medical 10,000 DIALYSIS Branch Units ONCE - PT ROOM, 1 dose, On Wed04/27/22 at 0945, Routine
member services representative approving Restricted medication : STANLEY PATIÑO dextrose [...] [place] mg 00 First dose Medical on [facility] Branch 04/27/22 at 0900, Until Discontinu ed, Routine aspirin Yes 81mg 81 mg, Univers chewable 04-27 Oral, ity of tablet 81 14:00: DAILY, [place] mg 00 First dose Medical on [facility] Branch 04/27/22 at 0900, Until Discontinu ed, Routine calcium 2021- No 2g 2 g, IV Univer s gluconate 2 04-27 Infusion, it y of g in NaCl 13:30: 13:13 at 200 [place] 100 mL 00 :00 mL/hr Medical (ISO-OSM) Administer Bran ch RTU IV over 30 infusion 2 Minutes, g ONCE, 1 dose, On [facility] 04/27/22 at 0830, STAT dextrose 50 No 50mL 50 mL, Uni vers % in water 04-27 Slow IV ity o f (D50W) 12:30: 12:43 Push, [place] injection 00 :00 ONCE, 1 Medical 50 mL dose, On Branch [facility] 04/27/22 at 0730, ANGELA insulin 2021- No .1U/kg 7.13 Units U nivers regular 04-27 (0.1 ity of human 12:30: 12:43 Units/kg [place] (HUMULIN R) 00 :00 ?71.3 kg), Me dical injection IV Push, [place] 7.13 Units ONCE, 1 dose, On [facility] 04/27/22 at 0730, ANGELA
In dication for insulin: Hyperkalem ia- Please use the Insulin Protocol for Hyperkalem ia order set sodium No 50meq 50 mEq, Univer s bicarbonate 04-27 Slow IV ity of 1 mEq/mL 12:30: 12:43 Push, [place] (8.4 %) 00 :00 ONCE, 1 Medical injection dose, On Branch 50 mEq [facility] 04/27/22 at 0730, ANGELA glucagon Yes 1mg 1 mg, Univers (GLUCAGEN 04-27 Intramuscu ity of DIAGNOSTIC 12:26: lar, PRN, [place] KIT) 52 Starting Medical injection 1 on [facility] Branch mg 04/27/22 at 0726, Until Discontinu ed, ANGELA, Blood Glucose < or = 70 mg/dL and patient is unable to swallow or has mental changes. dextrose 50 Yes 25mL 25 mL, Univ [...] ity of 1 mEq/mL 07:15: 07:00 Push, [place] (8.4 %) 00 :00 ONCE, 1 Medical injection dose, On Branch 100 mEq 04/27/22 at 0215, Routine acetaminoph Yes 650mg 650 mg, Un mahsa en 04-27 Oral, ity of (TYLENOL) 05:34: Q6HPRN, [place] 160 mg/5 mL 21 Starting Medi jimenez [...] First dose Medi jimenez 38 mcg on [place] Branch 04/26/22 at 1400, Until Discontinu ed, Routine dextrose 50 Yes 25mL 25 mL, Univ ers % in water 04-26 Slow IV ity of (D50W) 16:13: Push, PRN, [place] injection 01 Starting Medica l 25 mL on [place] Branch 04/26/22 at 1113, Until Discontinu ed, Routine, Blood Glucose <= 70 atropine 2021- No .4mg 0.4 mg, IV Un mahsa injection 04-26 Push, ity of 0.4 mg 14:31: 15:22 Q5MIN PRN, [place] 23 :16 Starting Medical on [place] Branch 04/26/22 at 0931, Until [place] 04/26/22 at 1022, Routine, Symptomati c Bradycardi a insulin 2021- No 10U 10 Units, Univ ers regular 04-26 Slow IV ity of human 14:30: 13:50 Push, [place] (HUMULIN R) 00 :00 ONCE, 1 Medic al injection dose, On Branch 10 Units [place] 04/26/22 at 0930, Routine
Indicatio n for insulin: Hyperglyce leroy dextrose 50 2021- No 25mL 25 mL, Uni vers % in water 04-26 Slow IV ity o f (D50W) 14:30: 13:46 Push, [place] injection 00 :00 ONCE, 1 Medical 25 mL dose, On Branch [place] 04/26/22 at 0930, Routine albuterol 2021- No 2.5mg 2.5 mg, Uni vers (PROVENTIL) 04-26 Inhalation i ty of 2.5 mg /3 13:52: 14:46 , PRN, 4 [place] as mL (0.083 56 :00 doses, Medical %) Starting [place] nebulizer on [place] solution 04/26/22 at 2.5 mg 0852, Until [...] anesthesia heparin Yes 5000U 5,000 Univers (porcine) 25 Units, ity of injection 13:00: Subcutaneo [place] 5,000 Units 00 us, Q12H, Med ical First dose Branch on 04/26/22 at 0800, Until Discontinu ed, Routine famotidine No 10mg 10 mg, Univ ers (PEPCID 04-26 Slow IV ity of [...] s vasopresso r at a time.
sodium 100meq 100 mEq, [facility] bicarbonate 04-26 Slow IV ity of 1 mEq/mL 12:30: 11:54 [place], [place] (8.4 %) 00 :00 ONCE, 1 Medical injection dose, On Branch 100 mEq [place] 04/26/22 at 0730, Routine calcium No 2g 2 g, IV Univer s gluconate 2 04-26 Infusion, it y of g in NaCl 12:30: 12:31 at 200 [place] 100 mL 00 :00 mL/hr Medical (ISO-OSM) Administer Bran ch RTU IV over 30 infusion 2 Minutes, g ONCE, 1 dose, On [place] 04/26/22 at 0730, Routine ipratropium No 3mL 3 mL, [facility] -albuteroL 04-26 Inhalation it y of (DUONEB) 11:45: 13:40 , QID, [place] 0.5 mg-3 00 :00 First dose Medic al mg(2.5 mg on [place] Branch base)/3 mL 04/26/22 at nebulizer 0645, solution 3 Until mL Discontinu ed, Routine dextrose 50 No 25mL 25 mL, Uni vers % in water 04-26 Slow IV ity o f (D50W) 10:15: 10:05 [place], [place] injection 00 :00 ONCE, 1 Medical 25 mL dose, On Branch [place] 04/26/22 at 0515, Routine insulin No 10U 10 Units, [facility] regular 04-26 Slow IV ity of human 08:45: 08:09 [place], [place] (HUMULIN R) 00 :00 ONCE, 1 Medic al injection dose, On Branch 10 Units [place] 04/26/22 at 0345, Routine
Indicatio n for insulin: Hyperglyce leroy dextrose 50 No 50mL 50 mL, Uni vers % in water 04-26 Slow IV ity o f (D50W) 08:45: 08:07 Push, [place] injection 00 :00 ONCE, 1 Medical 50 mL dose, On Branch [place] 04/26/22 at 0345, Routine calcium 2021- No 1g 1 g, IV Univer s gluconate 1 04-26 Infusion, it y of g in NaCl 08:30: 08:39 at 100 [place] 50 mL 00 :00 mL/hr Medical (ISO-OSM) Administer Bran ch RTU IV over 30 infusion 1 Minutes, g ONCE, 1 dose, On [place] 04/26/22 at 0330, Routine NaCl 0.9% 2021- No 250mL at 999 Univ ers (NS) IV 04-26 mL/hr, ity of infusion 08:30: 19:24 Intravenou [place] 250 mL 00 :41 s, Medical CONTINUOUS Branch , Starting on [place] 04/26/22 at 0330, Until [place] 04/26/22 at 1424, Routine atropine 2021- No 1mg 1 mg, IV Univ ers injection 1 04-26 Push, ity of mg 08:00: 07:47 ONCE, 1 [place] 00 :00 dose, On Medical [facility] 04/26/22 at 0300, Routine albuterol No 10mg 10 mg, Unive rs (PROVENTIL) 04-26 Inhalation i ty of 2.5 mg /3 08:00: 08:16 , ONCE, 1 [place] mL (0.083 00 :00 dose, On Medica l %) [facility] nebulizer 04/26/22 at solution 10 0300, STAT mg proMETHazin 2021- No 25mg 25 mg, IV Univers e 04-26 Piggyback, ity of (PHENERGAN) 07:15: 07:21 ONCE, 1 [place] 25 mg in 00 :00 dose, On Medical NaCl 0.9% [facility] (NS) 50 mL 04/26/22 at IV 0215, ANGELA piggyback sodium Yes 5mL 5 mL, Univers chloride 04-26 Intravenou ity o f (NS) 06:52: s, PRN, [place] injection 5 13 Starting Medi jimenez mL on [place] Branch 04/26/22 at 0152, Until Discontinu ed, Routine, IV line flushing tetanus-dip 2019-08 2020- No .5mL 0.5 mL, Un mahsa htheria 0-19 -19 Intramuscu ity o f toxoids 19:15: 19:26 lar, ONCE, [place] as (TENIVAC) 00 :00 1 dose, Medical 5-2 Lf Mon Branch unit/0.5 mL 05/20/20 injection at 1415, 0.5 mL Routine lidocaine-p 2020-0 Yes [id number] administra Methodi rilocaine 2-24 tion of ([facility]) 00:00: local Hospita 2.5-2.5 % 00 anesthetic l cream drug. Apply over fistula 30-45 min before dialysis lidocaine-p 2020-0 Yes [id number] administra Methodi rilocaine 2-24 tion of ([facility]) 00:00: local Hospita 2.5-2.5 % 00 anesthetic l cream drug. Apply over fistula 30-45 min before dialysis lidocaine-p 2020-0 Yes [id number] administra Methodi rilocaine 2-24 tion of ([facility]) 00:00: local Hospita 2.5-2.5 % 00 anesthetic l cream drug. Apply over fistula 30-45 min before dialysis lidocaine-p 2020-0 Yes [id number] administra Methodi rilocaine 2-[address] ([facility]) 00:00: local Hospita 2.5-2.5 % 00 anesthetic l cream drug. Apply over fistula 30-45 min before dialysis lidocaine-p 2020-0 Yes [id number] administra Methodi rilocaine 2-24 tion of ([facility]) 00:00: local Hospita 2.5-2.5 % 00 anesthetic l cream drug. Apply over fistula 30-45 min before dialysis acetaminoph 2020-0 Yes [id number] 1{tbl} Q6H Take 1 M ethodi en-codeine 1-[address] (TYLENOL 00:00: mouth Hospita WITH 00 every 6 l CODEINE #3) (six) 300-30 mg hours as per tablet needed for moderate pain for up to 5 days .acute pain. acetaminoph 2020-0 Yes [id number] 1{tbl} Q6H Take 1 M ethodi en-codeine 1-[address] (TYLENOL 00:00: mouth Hospita WITH 00 every 6 l CODEINE #3) (six) 300-30 mg hours as per tablet needed for moderate pain for up to 5 days .acute pain. acetaminoph 2020-0 Yes [id number] 1{tbl} Q6H Take 1 M ethodi en-codeine 1-[address] (TYLENOL 00:00: mouth Hospita WITH 00 every 6 l CODEINE #3) (six) 300-30 mg hours as per tablet needed for moderate pain for up to 5 days .acute pain. acetaminoph 2020-0 Yes [id number] 1{tbl} Q6H Take 1 M ethodi en-codeine 1-[address] (TYLENOL 00:00: mouth Hospita WITH 00 every 6 l CODEINE #3) (six) 300-30 mg hours as per tablet needed for moderate pain for up to 5 days .acute pain. acetaminoph 2020-0 Yes [id number] 1{tbl} Q6H Take 1 M ethodi en-codeine [...] calcium(777 mg) tablet hydrALAZINE 2020-0 Yes 10mg Q.[id number] Take 10 mg Methodi (APRESOLINE 1-[id number] mouth [address] ) 10 MG [...] mouth Hospita mg 39 daily. l tablet,loco drummondd release (DR/EC) aspirin-jimenez 2020-0 Yes 81mg Take 81 mg Methodi cium 1-[address] carbonate 14:22: Hospita 81 mg-300 39 l mg calcium(777 mg) tablet hydrALAZINE 2020-0 Yes 10mg Q.26957365 Take 10 mg Methodi (APRESOLINE 1-06 [id number] mouth 3 st ) 10 MG [...] calcium(777 mg) tablet hydrALAZINE 2020-0 Yes 10mg Q.56079213 Take 10 mg Methodi (APRESOLINE 1-06 [id number] by mouth 3 st ) 10 MG [...] calcium(777 mg) tablet hydrALAZINE 2020-0 Yes 10mg Q.48265757 Take 10 mg Methodi (APRESOLINE 1-06 [id number] by mouth 3 st ) 10 MG [...] calcium(777 mg) tablet hydrALAZINE 2019-0 Yes 10mg Q.58279937 Take 10 mg Methodi (APRESOLINE 06 [id number] by mouth 3 st ) 10 MG [...] manjinder 50 mcg 00 l tablet levothyroxi 2018-0 Yes 1{tbl} Take 1 Me thodi ne 9-[address] (SYNTHROID) 00:00: mouth. Hosp manjinder 50 mcg 00 l tablet levothyroxi 2018-0 Yes 1{tbl} Take 1 Me thodi ne 9-[address] (SYNTHROID) 00:00: mouth. Hosp manjinder 50 mcg 00 l tablet levothyroxi 2018-0 Yes 1{tbl} Take 1 Me thodi ne 9-[address] (SYNTHROID) 00:00: mouth. Hosp manjinder 50 mcg 00 l tablet levothyroxi Yes 1{tbl} Take 1 Me thodi ne 9-[address] (SYNTHROID) 00:00: mouth. Hosp manjinder 50 mcg 00 l tablet sodium 2017-08 Yes [id number] 325mg Take 325 Un mahsa bicarbonate 2-03 [...] by mouth 2 ity of 14:52: (two) [place] [address] times Medical daily. Branch atorvastati 2017-08 Yes [id number] .5{tbl} Take 0.5 Univers n 40 mg [...] mg Branch in the evening. hydralAZINE Yes 50mg Take 50 mg Univers 10 mg 5-23 by mouth ity of tablet 00:00: in the morning Medical and 50 mg Branch in the evening. hydralAZINE 2018-0 2022- No 50mg Take 50 mg Univers 10 mg 5-23 12-12 by mouth ity of tablet 00:00: 00:00 in the [place] 00 :00 morning Medical and 50 mg Branch in the evening. carvedilol Yes 1{tbl} Take 1 Uni vers 6.25 mg 4-26 tablet by ity of tablet 00:00: mouth in [place] 00 the Medical morning Branch and 1 tablet in the evening. Take with meals. carvedilol Yes 1{tbl} Take 1 Uni vers 6.25 mg 4-26 tablet by ity of tablet 00:00: mouth [place] 00 daily. [facility] Branch carvedilol Yes 1{tbl} Take 1 Uni vers 6.25 mg 4-26 tablet by ity of tablet 00:00: mouth in [place] 00 the Medical morning Branch and 1 tablet in the evening. Take with meals. carvedilol Yes 1{tbl} Take 1 Uni vers 6.25 mg 4-26 tablet by ity of tablet 00:00: mouth in [place] 00 the Medical morning Branch and 1 tablet in the evening. Take with meals. carvedilol Yes .5{tbl} Take 0.5 Univers 6.25 mg 4-26 tablets by ity of tablet 00:00: mouth in [place] [address] the [facility] morning [place] and 0.5 tablets in the evening. Take with meals. Hold morning dose on [facility] carvedilol Yes .5{tbl} Take 0.5 Univers 6.25 mg 4-26 tablets by ity of tablet 00:00: mouth in [place] [address] the [facility] morning [place] and 0.5 tablets in the evening. Take with meals. Hold morning dose on [facility] carvedilol Yes .5{tbl} Take 0.5 Univers 6.25 mg 4-26 tablets by ity of tablet 00:00: mouth in [place] [address] the [facility] morning [place] and 0.5 tablets in the evening. Take with meals. Hold morning dose on [facility] carvedilol Yes .5{tbl} Take 0.5 Univers 6.25 mg 4-26 tablets by ity of tablet 00:00: mouth in [place] [address] the [facility] morning [place] and 0.5 tablets in the evening. Take with meals. Hold morning dose on [facility] carvedilol Yes 3.125mg Take 0.5 Univers 6.25 mg 4-26 tablets by ity of tablet 00:00: mouth in [place] 00 the [facility] morning Branch and 0.5 tablets in the evening. Take with meals. Hold morning dose on [facility] carvedilol Yes 3.125mg Take 0.5 Univers 6.25 mg 4-26 tablets by ity of tablet 00:00: mouth in [place] 00 the [facility] morning Branch and 0.5 tablets in the evening. Take with meals. Hold morning dose on [facility] doxazosin Yes Comments: Met miller WATTS) 4 [...] Immunizations Ordered Filled Immunization Date Status Comments [facility] e Immunization Name Name SARS-COV-2 COVID-19 2020-11-07 Completed Unive rsity of PFIZER VACCINE 00:00:00 [facility] SARS-COV-2 COVID-19 2020-11-07 Completed Unive rsity of PFIZER VACCINE 00:00:00 [place] Medi jimenez Branch SARS-COV-2 COVID-19 2020-11-07 Completed Unive rsity of PFIZER VACCINE 00:00:00 [facility] Branch SARS-COV-2 COVID-19 2020-11-07 Completed Unive rsity of PFIZER VACCINE 00:00:00 [facility] Branch SARS-COV-2 COVID-19 2020-11-07 Completed Unive rsity of PFIZER VACCINE 00:00:00 [facility] Branch SARS-COV-2 COVID-19 2020-11-07 Completed Unive rsity of PFIZER VACCINE 00:00:00 [facility] Branch SARS-COV-2 COVID-19 2020-11-07 Completed Unive rsity of PFIZER VACCINE 00:00:00 [facility] Branch SARS-COV-2 COVID-19 2020-11-07 Completed Unive rsity of PFIZER VACCINE 00:00:00 [facility] Branch SARS-COV-2 COVID-19 2020-11-07 Completed Unive rsity of PFIZER VACCINE 00:00:00 [facility] Branch SARS-COV-2 COVID-19 2020-10-16 Completed Unive rsity of PFIZER VACCINE 00:00:00 [facility] Branch SARS-COV-2 COVID-19 2020-10-16 Completed Unive rsity of PFIZER VACCINE 00:00:00 [facility] Branch SARS-COV-2 COVID-19 2020-10-16 Completed Unive rsity of PFIZER VACCINE 00:00:00 [facility] Branch SARS-COV-2 COVID-19 2020-10-16 Completed Unive rsity of PFIZER VACCINE 00:00:00 [facility] Branch SARS-COV-2 COVID-19 2020-10-16 Completed Unive rsity of PFIZER VACCINE 00:00:00 [facility] Branch SARS-COV-2 COVID-19 2020-10-16 Completed Unive rsity of PFIZER VACCINE 00:00:00 [facility] Branch SARS-COV-2 COVID-19 2020-10-16 Completed Unive rsity of PFIZER VACCINE 00:00:00 [facility] Branch SARS-COV-2 COVID-19 2020-10-16 Completed Unive rsity of PFIZER VACCINE 00:00:00 [facility] Branch SARS-COV-2 COVID-19 2020-10-16 Completed Unive rsity of PFIZER VACCINE 00:00:00 [facility] Branch Td 2020-05-20 Completed University of 00:00:00 [facility] Branch Td 2020-05-20 Completed University of 00:00:00 [place] [facility] Td 2020-05-20 Completed University of 00:00:00 [place] [facility] Td 2020-05-20 Completed University of 00:00:00 [place] [facility] Td 2020-05-20 Completed University of 00:00:00 [place] [facility] Td 2020-05-20 Completed University of 00:00:00 [facility] Branch TD, NOS 2020-05-20 Completed University of 00:00:00 [facility] Branch TD, NOS 2020-05-20 Completed University of 00:00:00 [facility] Branch TD, NOS 2020-05-20 Completed University of 00:00:00 [facility] TD, NOS 2020-05-20 Completed University of 00:00:00 [facility] Vital Signs Vital Name Observation Time Observation Value Comments Source Systolic blood 2022-10-11 16:56:00 132 mm[Hg] Univer sity of pressure [facility] Diastolic blood 2022-10-11 16:56:00 52 mm[Hg] Unive rsity of pressure [facility] Heart rate 2022-10-11 16:56:00 74 /min [facility] Body temperature 2022-10-11 16:56:00 36.17 Althea [facility] Respiratory rate 2022-10-11 16:56:00 15 /min [facility] Oxygen saturation in 2022-10-11 16:56:00 98 /min [facility] Arterial blood by [facility] Pulse oximetry Branch Body weight 2022-10-11 08:38:00 69.491 kg [facility] BMI 2022-10-11 08:38:00 20.78 kg/m2 [facility] Body height 2022-10-09 17:01:00 182.9 cm [facility] Systolic blood 2022-10-08 08:00:00 147 mm[Hg] Univer sity of pressure [facility] Diastolic blood 2022-10-08 08:00:00 57 mm[Hg] Unive rsity of pressure [facility] Heart rate 2022-10-08 08:00:00 79 /min [facility] [place] [facility] Respiratory rate 2022-10-08 08:00:00 22 /min Univ ersity of [place] [facility] Oxygen saturation in 2022-10-08 08:00:00 100 /min University of Arterial blood by [place] Medi jimenez Pulse oximetry Branch Body temperature 2022-10-08 04:14:11 37 Althea Univ ersity [facility] [place] [facility] Systolic blood 2022-07-30 06:31:00 149 [...] 100 /min University of Arterial blood by [facility] Pulse oximetry Branch Body temperature 2022-07-30 04:06:00 37.06 Althea Univ ers[facility] [place] [facility] Body height 2022-07-30 04:06:00 182.9 cm [facility] [place] [facility] Body weight 2022-07-30 04:06:00 75.751 kg [facility] [place] [facility] BMI 2022-07-30 04:06:00 22.65 kg/m2 [facility] [place] [facility] Systolic blood 2022-07-14 17:59:00 119 mm[Hg] Univer sity of pressure [place] [facility] Diastolic blood 2022-07-14 17:59:00 49 mm[Hg] Unive rsity of pressure [place] [facility] Heart rate 2022-07-14 17:59:00 73 /min [facility] [place] [facility] Body temperature 2022-07-14 17:59:00 36.39 Althea Univ [facility] [place] [facility] Respiratory rate 2022-07-14 17:59:00 18 /min Univ ersity [facility] [place] [facility] Oxygen saturation in 2022-07-14 17:59:00 98 /min University of Arterial blood by [facility] jimenez Pulse oximetry Branch Body weight 2022-07-14 09:57:00 71.986 kg [facility] [place] [facility] BMI 2022-07-14 09:57:00 21.52 kg/m2 [facility] [place] [facility] Body height 2022-07-14 03:07:00 182.9 cm [facility] [place] [facility] Systolic blood 2022-06-09 05:00:00 157 mm[Hg] Univer sity of pressure [place] [facility] Diastolic blood 2022-06-09 05:00:00 74 mm[Hg] Unive rsity of pressure [place] [facility] Heart rate 2022-06-09 05:00:00 68 /min [facility] [place] [facility] Respiratory rate 2022-06-09 05:00:00 17 /min Univ ersity [facility] [place] [facility] Oxygen saturation in 2022-06-09 05:00:00 99 /min University of Arterial blood by [place] Pulse oximetry Branch Body temperature 2022-06-09 03:48:00 36.5 Althea Univ [facility] [place] [facility] Body height 2022-06-09 03:48:00 182.9 cm [facility] [place] [facility] Body weight 2022-06-09 03:48:00 74.844 kg [facility] [place] [facility] BMI 2022-06-09 03:48:00 22.38 kg/m2 [facility] [place] [facility] Systolic blood 2022-05-02 15:14:00 129 mm[Hg] Univer sity of pressure [place] [facility] Diastolic blood 2022-05-02 15:14:00 50 mm[Hg] Unive rsity of pressure [place] [facility] Heart rate 2022-05-02 15:14:00 71 /min [facility] [place] [facility] Body temperature 2022-05-02 15:14:00 36.56 Althea Univ [facility] [place] [facility] Respiratory rate 2022-05-02 15:14:00 16 /min Univ ersity [facility] [place] [facility] Oxygen saturation in 2022-05-02 15:14:00 96 /min University of Arterial blood by [place] Pulse oximetry Branch Body weight 2022-05-01 16:34:00 72.8 kg [facility] [place] [facility] BMI 2022-05-01 16:34:00 21.77 kg/m2 [facility] [place] [facility] Body height 2022-04-26 06:47:00 182.9 cm [facility] [place] [facility] Systolic blood 2020-05-20 19:00:00 175 mm[Hg] Univer sity of [facility] Diastolic blood 2020-05-20 19:00:00 78 mm[Hg] [facility] 2020-05-20 19:00:00 68 /min [facility] Respiratory rate 2020-05-20 19:00:00 18 /min [facility] Oxygen saturation in 2020-05-20 19:00:00 99 /min [facility] Arterial blood by [facility] Pulse oximetry [place] Body temperature 2020-05-20 17:34:00 37.33 Althea [facility] Body weight 2020-05-20 17:34:00 85.276 kg [facility] [facility] BMI 2020-05-20 17:34:00 25.50 kg/m2 [facility] Procedures Procedure Date / Time Performing Clinician Source Performed HB ECG ROUTINE & RHYTHM 2022-10-11 12:40:[address] [facility] TROPONIN I 2022-10-11 10:45:[address] [facility] BASIC METABOLIC PANEL 2022-10-11 10:45:00 Randee Steve [facility] (NA, K, CL, CO2, GLUCOSE, Medica l Branch BUN, CREATININE, CA) CBC WITH DIFF 2022-10-11 10:45:[address] [facility] XR CHEST 1 VW 2022-10-11 06:36:59 [facility] HEPATITIS B SURFACE 2022-10-10 19:10:00 Rosa M Ruth [facility] ANTIBODY [facility] HEPATITIS B SURFACE 2022-10-10 19:10:00 Rosa M Ruth [facility] ANTIGEN [facility] MRSA / MSSA SCREEN BY 2022-10-10 10:35:00 Rosa M Ruth [facility] PCR, NARES Medical Branch PHOSPHORUS 2022-10-10 10:32:00 Randee Steve [facility] MAGNESIUM 2022-10-10 10:32:[address] [facility] BASIC METABOLIC PANEL 2022-10-10 10:32:00 [facility] (NA, K, CL, CO2, GLUCOSE, Medica l Branch BUN, CREATININE, CA) CBC WITH DIFF 2022-10-10 10:32:00 Randee Steve [facility] XR ABDOMEN 2 VW 2022-10-09 13:43:22 Joe [facility] PHOSPHORUS 2022-10-09 13:18:00 Joe [facility] LIPASE 2022-10-09 13:18:[address] [facility] MAGNESIUM 2022-10-09 13:18:00 Joe [facility] TROPONIN I 2022-10-09 13:18:00 Joe [facility] FREE T4 2022-10-09 13:18:[address] [facility] THYROID STIMULATING 2022-10-09 13:18:00 Randee Steve [facility] HORMONE [facility] COMP. METABOLIC PANEL 2022-10-09 13:18:00 Macario Diaz [facility] ([id number]) [facility] CBC WITH DIFF 2022-10-09 13:18:00 Joe [facility] CONSENT/REFUSAL FOR 2022-10-09 12:48:55 [facility] COMP. METABOLIC PANEL 2022-10-08 05:01:00 Rianna Gomez Un [facility] ([id number]) [facility] CBC WITH DIFF 2022-10-08 05:01:00 Rianna Gomez [facility] NOTICE OF PRIVACY 2022-10-08 04:06:01 Doctor Unassigned, No Univ [facility] PRACTICES Name [facility] CONSENT/REFUSAL FOR 2022-10-08 04:05:24 [facility] Name Medical Branch LIPASE 2022-07-30 05:24:00 Ivania Mehta [facility] TROPONIN I 2022-07-30 05:24:00 Ivania Mehta [facility] COMP. METABOLIC PANEL 2022-07-30 05:24:00 Ivania Mehta [facility] ([id number]) Medical Branch XR CHEST 1 VW 2022-07-30 05:10:00 Ivania Mehta [facility] CT HEAD WO CONTRAST 2022-07-30 04:45:00 Ivania Mehta [facility] EKG-12 LEAD 2022-07-30 04:26:37 Ivania Mehta [facility] CBC WITH DIFF 2022-07-30 04:24:00 Ivania Mehta [facility] RAPID INFLUENZA A/B 2022-07-30 04:24:00 Ivania Mehta [facility] RAPID RSV 2022-07-30 04:24:00 Ivania Mehta [facility] COVID-19 (ID NOW RAPID 2022-07-30 04:24:00 Ivania Mehta [facility] TESTING) Medical Branch BASIC METABOLIC PANEL 2022-07-14 10:39:00 [facility] (NA, K, CL, CO2, GLUCOSE, Medica l Branch BUN, CREATININE, CA) CBC WITH DIFF 2022-07-14 10:39:00 [facility] RAPID STREP SCREEN FOR 2022-07-14 10:39:00 [facility] GROUP A [facility] RESPIRATORY PANEL BY PCR 2022-07-14 10:39:00 [facility] XR CHEST 1 VW 2022-07-13 23:39:58 Darrel Trinh [facility] LACTIC ACID WHOLE BLOOD 2022-07-13 22:44:00 Darrel Trinh [facility] BLOOD CULTURE SCREEN 2022-07-13 22:43:00 Darrel Trinh [facility] LIPASE 2022-07-13 22:43:00 Darrel Trinh [facility] MAGNESIUM 2022-07-13 22:43:00 Ziggy Darrel [facility] TROPONIN I 2022-07-13 22:43:00 Ziggy Darrel [facility] COMP. METABOLIC PANEL 2022-07-13 22:43:00 Darrel Trinh [facility] ([id number]) Medical Branch CBC WITH DIFF 2022-07-13 22:43:00 Darrel Trinh [facility] PROTHROMBIN TIME / INR 2022-07-13 22:43:00 Darrel Trinh [facility] ACTIVATED PARTIAL 2022-07-13 22:43:00 Darrel Trinh [facility] THRMPLAS BIRDIE [facility] RAPID INFLUENZA A/B 2022-07-13 22:43:00 Darrel Trinh [facility] ty [facility] N-TERMINAL PRO-BNP 2022-07-13 22:43:00 Darrel Trinh [facility] COVID-19 (ID NOW RAPID 2022-07-13 22:43:00 Darrel Trinh [facility] TESTING) Medical Branch EKG-12 LEAD 2022-07-13 22:40:27 Darrel Trinh [facility] BASIC METABOLIC PANEL 2022-06-09 04:22:00 Aaliyah Sorto [facility] (NA, K, CL, CO2, GLUCOSE, Medica l Branch BUN, CREATININE, CA) CBC WITH DIFF 2022-06-09 04:22:00 Aaliyah Sorto [facility] NOTICE OF PRIVACY 2022-06-09 03:39:27 Doctor Unassigned, No [facility] PRACTICES Name Medical Branch CONSENT/REFUSAL FOR 2022-06-09 03:38:52 Doctor Unassigned, No [facility] DIAGNOSIS AND TREATMENT Name Medical Branch XR KUB 2022-05-02 16:00:00 Steve Ramsay [facility] POCT GLUCOSE (AUTOMATED) 2022-05-02 15:17:00 Steve Ramsay [facility] POCT GLUCOSE (AUTOMATED) 2022-05-02 00:58:00 Steve Ramsay [facility] POCT GLUCOSE (AUTOMATED) 2022-05-01 17:40:00 Steve Ramsay [facility] POCT GLUCOSE (AUTOMATED) 2022-05-01 13:54:00 Steve Ramsay [facility] BASIC METABOLIC PANEL 2022-05-01 09:44:00 Amy [facility] (NA, K, CL, CO2, GLUCOSE, Medica l Branch BUN, CREATININE, CA) CBC WITH DIFF 2022-05-01 09:44:00 Amy [facility] POCT GLUCOSE (AUTOMATED) 2022-05-01 02:55:00 Steve Ramsay [facility] POCT GLUCOSE (AUTOMATED) 2022-04-29 21:19:00 MoulinGianluca [facility] POCT GLUCOSE (AUTOMATED) 2022-04-29 16:28:00 Gianluca Alba [facility] PHOSPHORUS 2022-04-29 13:05:00 Zafar [facility] MAGNESIUM 2022-04-29 13:05:00 Zafar [facility] BASIC METABOLIC PANEL 2022-04-29 13:05:00 Zafar [facility] (NA, K, CL, CO2, GLUCOSE, Medica l Branch BUN, CREATININE, CA) CBC WITH DIFF 2022-04-29 13:05:00 Zafar [facility] POCT GLUCOSE (AUTOMATED) 2022-04-29 13:04:00 Gianluca Alba [facility] POCT GLUCOSE (AUTOMATED) 2022-04-29 00:56:00 MoGianluca aguilar [facility] POCT GLUCOSE (AUTOMATED) 2022-04-28 22:49:00 Gianluca Alba [facility] TRANSTHORACIC ECHO (TTE) 2022-04-28 20:08:00 Dominik Stephen [facility] POCT GLUCOSE (AUTOMATED) 2022-04-28 17:16:00 MoulinGianluca [facility] POCT GLUCOSE (AUTOMATED) 2022-04-28 13:23:00 Gianluca Alba [facility] MAGNESIUM 2022-04-28 07:20:00 Kadeem Collins [facility] BASIC METABOLIC PANEL 2022-04-28 07:20:00 Stanley Patiño [facility] (NA, K, CL, CO2, GLUCOSE, Medica l Branch BUN, CREATININE, CA) CBC WITH DIFF 2022-04-28 07:20:00 Kadeem Collins [facility] MAGNESIUM 2022-04-27 22:09:00 [facility] BASIC METABOLIC PANEL 2022-04-27 22:09:00 [facility] (NA, K, CL, CO2, GLUCOSE, Medica l Branch BUN, CREATININE, CA) CBC WITH DIFF 2022-04-27 22:09:00 Zafar [facility] PREPARE PACKED RBC 2022-04-27 18:47:23 Zafar [facility] ABORH CONFIRMATION (LAB 2022-04-27 15:09:00 Marielle [facility] ONLY) [facility] HB ABO GROUPING 2022-04-27 13:35:00 Marielle Stanley [facility] PHOSPHORUS 2022-04-27 11:24:00 Mindy [facility] MAGNESIUM 2022-04-27 11:24:00 Mindy [facility] THYROID STIMULATING 2022-04-27 11:24:00 Zafar Dominik [facility] HORMONE [facility] BASIC METABOLIC PANEL 2022-04-27 11:24:00 Radha Guillen [facility] (NA, K, CL, CO2, GLUCOSE, Medica l Branch BUN, CREATININE, CA) CBC WITH DIFF 2022-04-27 11:24:00 Mindy [facility] XR CHEST 1 VW 2022-04-27 11:15:00 Mindy [facility] POCT GLUCOSE (AUTOMATED) 2022-04-27 09:29:00 Anjali [facility] PHOSPHORUS 2022-04-27 05:38:00 Anjali [facility] MAGNESIUM 2022-04-27 05:38:00 Anjali [facility] BASIC METABOLIC PANEL 2022-04-27 05:38:00 [facility] [place] (NA, K, CL, CO2, GLUCOSE, Medica l Branch BUN, CREATININE, CA) CBC WITH DIFF 2022-04-27 05:38:00 Gianluca Alba [facility] POCT GLUCOSE (AUTOMATED) 2022-04-27 03:49:00 Moulin, Gianluca [facility] POCT GLUCOSE (AUTOMATED) 2022-04-26 23:28:00 Moulin, Gianluca [facility] POCT GLUCOSE (AUTOMATED) 2022-04-26 23:06:00 Moulin, Gianluca [facility] POCT GLUCOSE (AUTOMATED) 2022-04-26 22:49:00 Moulin, Gianluca [facility] POCT GLUCOSE (AUTOMATED) 2022-04-26 22:34:00 Moulin, Gianluca [facility] PHOSPHORUS 2022-04-26 20:11:00 Mindy [facility] MAGNESIUM 2022-04-26 20:11:00 BrydannyFormerly [facility] BASIC METABOLIC PANEL 2022-04-26 20:11:00 [facility] (NA, K, CL, CO2, GLUCOSE, Medica l Branch BUN, CREATININE, CA) CBC WITH DIFF 2022-04-26 20:11:00 JenniferFormerly [facility] MRSA / MSSA SCREEN BY 2022-04-26 20:11:00 Gianluca Alba [facility] PCR, NARES [facility] POCT GLUCOSE (AUTOMATED) 2022-04-26 16:41:00 MoGianluca aguilar [facility] HEPATITIS B SURFACE 2022-04-26 15:50:00 Stanley Patiño [facility] ANTIBODY [facility] HEPATITIS B SURFACE 2022-04-26 15:50:00 Stanley Patiño [facility] ANTIGEN [facility] POCT GLUCOSE (AUTOMATED) 2022-04-26 11:51:00 MoulinGianluca [facility] BASIC METABOLIC PANEL 2022-04-26 09:41:00 Aaliyah Sorto [facility] (NA, K, CL, CO2, GLUCOSE, Medica l Branch BUN, CREATININE, CA) POCT GLUCOSE(AGE >30DAYS) 2022-04-26 09:41:00 Aaliyah Sorto [facility] POCT GLUCOSE (AUTOMATED) 2022-04-26 09:37:00 [facility]LO[facility] 2022-04-26 08:04:00 Aaliyah Sorto [facility] GAS [facility] POCT GLUCOSE (AUTOMATED) 2022-04-26 07:48:00 [facility]yah [facility] POCT GLUCOSE(AGE >30DAYS) 2022-04-26 07:47:00 Aaliyah Sorto U [facility] HB ECG ROUTINE & RHYTHM 2022-04-26 07:40:27 Aaliyah Sorto [facility] XR CHEST 1 VW 2022-04-26 07:19:00 aAliyah Sorto [facility] LIPASE 2022-04-26 06:55:00 Aaliyah Sorto [facility] TROPONIN I 2022-04-26 06:55:00 Aaliyah Sorto [facility] COMP. METABOLIC PANEL 2022-04-26 06:55:00 Aaliyah Sorot [facility] ([id number]) [facility] CBC WITH DIFF 2022-04-26 06:55:00 Aaliyah Sorto [facility] GLYCOSYLATED HEMOGLOBIN 2022-04-26 06:55:00 Sampson Sparks [facility] (A1C) [facility] RAPID INFLUENZA A/B 2022-04-26 06:55:00 Aaliyah Sorto [facility] N-TERMINAL PRO-BNP 2022-04-26 06:55:00 Aaliyah Sorto [facility] COVID-19 (ID NOW RAPID 2022-04-26 06:55:00 Aaliyah Sorto [facility] TESTING) Medical Branch LAB ONLY COVID 2022-04-26 06:55:00 Aaliyah Sorto [facility] INTERPRETATION [facility] EKG-12 LEAD 2022-04-26 06:53:29 Aaliyah Sorto [facility] EMERGENCY DEPARTMENT 2022-04-26 05:01:00 Doctor Unassigned, No [facility] [place] DOCUMENTS Name Medical Branch HOSPITAL ADMISSION 2022-04-26 05:01:00 Doctor Unassigned, No Uni [facility] CT CERVICAL SPINE WO 2020-05-20 18:51:43 Gina Cotton [facility] [place] CONTRAST [facility] CT HEAD WO CONTRAST 2020-05-20 18:51:43 Gina Cotton [facility]/REFUSAL FOR 2020-05-20 17:26:43 Doctor Unassigned, No Un [facility] [place] DIAGNOSIS AND TREATMENT [facility] NOTICE OF PRIVACY 2020-05-20 17:26:25 Doctor Unassigned, No Univ [facility] [place] PRACTICES [facility] Plan of Care Planned Activity Planned Date Details Comments Source Future Scheduled 2022-11-04 COVID-19 VACCINE (#1) [facility] Hospital Test 21:21:03 [code = COVID-19 VACCINE (#1)] Future Scheduled 2022-11-04 SHINGLES VACCINES (1 [facility] Hospital Test 21:21:03 of 2) [code = SHINGLES VACCINES (1 of 2)] Future Scheduled 2022-11-04 65+ PNEUMOCOCCAL Method[facility] Hospital Test 21:21:03 VACCINE (1 - PCV) [code = 65+ PNEUMOCOCCAL VACCINE (1 - PCV)] Future Scheduled 2022-11-04 INFLUENZA VACCINE Method [facility] Hospital Test 21:21:03 [code = INFLUENZA VACCINE] Future Scheduled 2022-10-29 COVID-19 VACCINE (#1) [facility] Hospital Test 08:39:55 [code = COVID-19 VACCINE (#1)] Future Scheduled 2022-10-29 SHINGLES VACCINES (1 [facility] Hospital Test 08:39:55 of 2) [code = SHINGLES VACCINES (1 of 2)] Future Scheduled 2022-10-29 65+ PNEUMOCOCCAL [facility] Hospital Test 08:39:55 VACCINE (1 - PCV) [code = 65+ PNEUMOCOCCAL VACCINE (1 - PCV)] Future Scheduled 2022-10-29 INFLUENZA VACCINE Method ist Hospital Test 08:39:55 [code = INFLUENZA VACCINE] Future Scheduled 2022-10-14 COVID-19 [facility]INE (#[facility] 09:22:18 [code = COVID-19 VACCINE (#1)] Future Scheduled 2022-10-14 SHINGLES VACCINES (1 [facility] Hospital Test 09:22:18 of 2) [code = SHINGLES VACCINES (1 of 2)] Future Scheduled 2022-10-14 65+ PNEUMOCOCCAL [facility] Hospital Test 09:22:18 VACCINE (1 - PCV) [code = 65+ PNEUMOCOCCAL VACCINE (1 - PCV)] Future Scheduled 2022-10-14 INFLUENZA VACCINE Method ist Hospital Test 09:22:18 [code = INFLUENZA VACCINE] Future Scheduled 2022-10-14 COVID-19 VACCINE (#1) [facility] Hospital Test 09:22:18 [code = COVID-19 VACCINE (#1)] Future Scheduled 2022-10-14 SHINGLES VACCINES (1 [facility] Hospital Test 09:22:18 of 2) [code = SHINGLES VACCINES (1 of 2)] Future Scheduled 2022-10-14 65+ PNEUMOCOCCAL [facility] Hospital Test 09:22:18 VACCINE (1 - PCV) [code = 65+ PNEUMOCOCCAL VACCINE (1 - PCV)] Future Scheduled 2022-10-14 INFLUENZA VACCINE Method [facility] Hospital Test 09:22:18 [code = INFLUENZA VACCINE] Future Scheduled 2022-05-20 HEPATITIS B VACCINES Met [facility] Test 12:12:16 (1 of 3 - 3-dose series) [code = HEPATITIS B VACCINES (1 of 3 - 3-dose series)] Future Scheduled 2022-05-20 COVID-19 VACCINE (#1) [facility] Hospital Test 12:12:16 [code = COVID-19 VACCINE (#1)] Future Scheduled 2022-05-20 65+ PNEUMOCOCCAL [facility] Hospital Test 12:12:16 VACCINE (1 - PCV) [code = 65+ PNEUMOCOCCAL VACCINE (1 - PCV)] Future Scheduled 2022-05-20 DIABETES: RETINAL EYE [facility] Hospital Test 12:12:16 EXAM [code = DIABETES: RETINAL EYE EXAM] Future Scheduled 2022-05-20 DIABETIC FOOT EXAM [facility] Test 12:12:16 [code = DIABETIC FOOT EXAM] Future Scheduled 2022-05-20 URINE MICROALBUMIN [facility] Test 12:12:16 [code = URINE MICROALBUMIN] Future Scheduled 2022-05-20 Hepatitis C screening [facility] Hospital Test 12:12:16 (procedure) [code = 157463916] Future Scheduled 2022-05-20 SHINGLES VACCINES (1 [facility] Test 12:12:16 of 2) [code = SHINGLES VACCINES (1 of 2)] Future Scheduled 2022-05-20 INFLUENZA VACCINE Method ist Hospital Test 12:12:16 [code = INFLUENZA VACCINE] Encounters Start End Encounter Admission Attending Care Care Encounter Source Date/Time Date/Time Type Type Clinicians Facility Department ID 2021-05-30 Emergency [facility] [id number] Univers 23:43:30 ity [facility] 2022-10-13 2022-10-13 Transition [place] [id number] Univers 00:00:00 00:00:00 of Care Rosaline JANEY [id number] it y [facility] [id number] [facility] [id number] [facility] 403 Branch 2022-10-09 2022-10-11 Outpatient X ZACHARY [facility] KIMBERLY [id number] Univers 06:40:00 15:14:00 RANDEE ity [facility] 2022-10-09 2022-10-11 Emergency Macario Diaz [facility] [id number] [id number] Univers 06:40:00 15:14:00 Randee Steve [id number] ity [facility] [id number] [facility] [id number] [facility] 081 Branch 2022-10-07 2022-10-08 Emergency X RIDLISSETH, [facility] ERT [id number] Univers 22:08:00 02:30:00 RIANNA it y of [facility] 2022-10-07 2022-10-08 Emergency [place], [facility] [id number] Univers 22:08:00 02:30:00 Rianna VELAZQUEZ [id number] ity [facility] [id number] [place] [facility] [id number] [facility] 084 Branch 2022-07-29 2022-07-30 Emergency X [facility] ERT [id number] Univers 22:02:00 00:48:00 IVANIA ity of [facility] 2022-07-29 2022-07-30 Emergency [facility] [id number] Univers 22:02:00 00:48:00 Ivania Bay MARCUS [id number] ity of [facility] 4.2.7.2.686 [place] [id number] [facility] 084 Branch 2022-07-15 2022-07-15 Transition TARA Noel [id number] Univers 00:00:00 00:00:00 of Care Quyen PFEIFFER [id number] i ty of [place]7.[place].686 [place] [id number] [facility] 403 Branch 2022-07-13 2022-07-14 Inpatient X [facility] KIMBERLY [id number] Univers 16:33:00 18:12:00 CARLTON ity [facility] 2022-07-13 2022-07-14 [facility] Ziggy Darrel [facility] 1.2.840.1 [id number] Univers 16:33:00 18:12:00 Encounter Carlton Schneider MARCUS [id number] ity of [facility] 4.2.7.2.686 [facility] [id number] [place] [id number] Branch 2022-06-08 2022-06-09 Emergency X [facility] ERT [id number] Univers 21:55:00 01:36:00 WAKILI ity [facility] 2022-06-08 2022-06-09 Emergency [facility] [id number] Univers 21:55:00 01:36:00 Panchojessica VELAZQUEZ [id number] ity of [facility] [id number] [place] [facility] [id number] [place] [id number] Branch 2022-05-04 2022-05-04 Transition TARA [facility] [id number] Univers 00:00:00 00:00:00 of Raissa PFEIFFER 350.1.13.10 it y of [place] 4.2.7.2.686 [facility] [id number] [facility] 403 Branch 2022-04-26 2022-05-02 Inpatient U AMY [facility] [id number] Univers 01:43:00 15:39:00 STEVE ity of [facility] 2022-04-26 2022-05-02 Hospital Gianluca Alba [facility] [id number] Univers 01:43:00 15:39:00 Encounter Sampson Sparks [facility] [id number] ity of Amy, Steve CLEAR 4.2.7.2.686 [facility] [id number] [facility] [address] Branch ([facility]) 2020-11-07 2020-11-07 Outpatient Ilan LIVINGSTON [facility] [id number] Univers 16:00:00 16:00:00 ZURDO ity [facility] 2020-11-07 2020-11-07 Outpatient [facility] [id number] Univers 09:30:00 09:30:00 ity [facility] 2020-10-16 2020-10-16 Outpatient [facility] [id number] Univers 09:30:00 09:30:00 ity [facility] 2020-05-20 2020-05-20 Emergency [facility] [id number] Univers 12:30:00 14:38:00 Gina Velazquez 350.1.13.10 ity of [place] 4.2.7.2.686 [facility] [id number] [facility] 084 Branch 2019-08-07 2019-08-07 Outpatient BALTAZAR [facility] [id number] [place] 00:00:00 00:00:00 ARABELLA Dinero Method i st Results Test Description Test Time Test Comments Results Result Comments Source Hepatitis B Surface Antibody (HBsAb) 2022-10-11 05:11:30 Test Item Value Reference Range Interpretation Comme nts HBsAB (test code = 0261019313) Positive HBsAb Semi-Quantitative (test code = 45.90 mIU/mL [id number]) TAMARA (test code = TAMARA) Interpretation: ?Hepatitis B Surface Antibody ? Negative - Patient is considered to be not immune to infection with HBV. ? ? Positive - Anti-HBs detected at greater than or equal to 12 mIU/mL. ?Patient is considered to be immune to infection with HBV. ? [facility]22-10-10 23:31:12 Test Item Value Reference Range Interpretation Comments HBsAg Semi-Quantitative (test code = 0.08 Negative 5195-3) [facility] with [id number] 11:30:53 Test Item Value Reference Range Interpretation Comments WBC (test code = 6.66 See_Comment [Automated 6690-2) message] The sy stem which generated this result transmitted reference range : 4.20 - 10.70 10*3/?L. The reference range was not used to interpret this result as normal/abnormal . RBC (test code = 3.35 See_Comment L [Automated 789-8) message] The sy [...] (test code = 69.0 fL 38.5-51.6 H 95919-7) RDW-CV (test code = 20.6 % 12.1-15.4 H 788-0) PLT (test code = 155 See_Comment [Automated 777-3) message] The sy stem which generated this result transmitted reference range : 150 - 328 10*3/ ?L. The reference r carroll was not used to interpret this result as normal/abnormal . MPV (test code = 11.9 fL 9.8-13.0 99499-6) NRBC/100 WBC (test 0.5 See_Comment [Automat ed code = [id number]) message] The system which generated this result transmitted reference range : 0.0 - 10.0 /100 WBCs. The refer ence range was not u sed to interpret th is result as normal/abnormal . NRBC x10^3 (test code 0.03 See_Comment [Auto mated = [id number]) message] The s ystem which generated this result transmitted reference range : 10*3/?L. The reference range was not used to interpret this result as normal/abnormal . GRAN MAT (NEUT) % 54.4 % (test code = 770-8) IMM GRAN % (test code 0.50 % = 3907720312) LYMPH % (test code = 35.9 % 736-9) MONO % (test code = 6.0 % 5905-5) EOS % (test code = 2.3 % 713-8) BASO % (test code = 0.9 % 706-2) GRAN MAT x10^3(ANC) 3.63 10*3/uL 1.99-6.95 (test code = 7859948593) IMM GRAN x10^3 (test 0.03 10*3/uL 0.00-0.06 code = 5348513847) LYMPH x10^3 (test code 2.39 10*3/uL 1.09-3.23 = 731-0) MONO x10^3 (test code 0.40 10*3/uL 0.36-1.02 = 742-7) EOS x10^3 (test code = 0.15 10*3/uL 0.06-0.53 711-2) BASO x10^3 (test code 0.06 10*3/uL 0.01-0.09 = 704-7) Lab Interpretation Abnormal (test code = 22084-7) [facility] [id number] 19:50:17 Test Item Value Reference Range Interpretation Comments TSH (test code = 3.64 See_Comment Biotin has been [id number]) reported to cau se a negative bias, interpret resul ts relative to pat jacob's use of biotin. [Automated mess age] The system [employer] generated this result transmitted ref erence range: 0.45 - 4 .70 mIU/L. The refe rence range was not u sed to interpret this result as normal/abnor mal. Lab Interpretation (test Normal code = 66104-7) [facility] [id number] 19:31:35 Test Item Value Reference Range Interpretation Comments FREE T4 (test code = 1.58 See_Comment [Autom ated message] 4501893623) The system [employer] generated this result transmitted ref erence range: 0.78 - 2 .20 ng/dL:. The ref erence range was not u sed to interpret this result as normal/abnor mal. Lab Interpretation (test Normal code = 54776-3) [facility] 16:01:13 Test Item Value Reference Range Interpretation Comments LIPASE (test code = 9150492908) 336 U/L 0-220 H Lab Interpretation (test code = Abnormal 46503-0) [facility] [id number] 14:32:17 Test Item Value Reference Range Interpretation Comments TROPONIN I (test code = 0.071 ng/mL <=0.034 H 4584795580) TAMARA (test code = TAMARA) Reference (Normal) [...] biotin. Lab Interpretation Abnormal (test code = 44329-1) [facility]OLIC [facility] ([id number])2022-10-09 14:21:00 Test Item Value Reference Range Interpretation Comments NA (test code = 142 mmol/L 135-145 0183679587) K (test code = 4.9 mmol/L 3.5-5.0 6471389482) CL (test code = 101 mmol/L 98-108 3384070082) CO2 TOTAL (test code = 27 mmol/L 23-31 6843868127) AGAP (test code = 14 2-16 0357040440) BUN (test code = 56 mg/dL 7-23 H 4688220927) GLUCOSE (test code = 117 mg/dL 70-110 H 7131046378) CREATININE (test code = 6.62 mg/dL 0.60-1.25 H 8076287708) TOTAL BILI (test code = 0.8 mg/dL 0.1-1.0 9403060807) CALCIUM (test code = 8.3 mg/dL 8.6-10.6 L 8988214381) T PROTEIN (test code = 8.3 g/dL 6.3-8.2 H 3290318301) ALBUMIN (test code = 4.1 g/dL 3.5-5.0 4426143260) ALK PHOS (test code = 83 U/L 34-122 4536729426) ALTv (test code = 15 U/L 5-50 1742-6) AST(SGOT) (test code = 20 U/L 13-40 4571022824) eGFR (test code = 8.2 mL/min/1.73m2 3214171547) TAMARA (test code = TAMARA) Association of [...] tests). Lab Interpretation Abnormal (test code = 64928-7) [facility] 14:21:00 Test Item Value Reference Range Interpretation Comments MAGNESIUM (test code = 5600961999) 1.9 mg/dL 1.7-2.4 Lab Interpretation (test code = Normal 87786-1) [facility] 14:20:39 Test Item Value Reference Range Interpretation Comments PHOSPHORUS (test code = 2588918154) 6.7 mg/dL 2.5-5.0 H Lab Interpretation (test code = Abnormal 85984-3) [facility] WITH [id number] 14:09:37 Test Item Value Reference Range Interpretation Comments WBC (test code = 6.79 See_Comment [Automated 6690-2) message] The sy stem which generated this result transmitted reference range : 4.20 - 10.70 10*3/?L. The reference range was not used to interpret this result as normal/abnormal . RBC (test code = 3.83 See_Comment L [Automated 759-8) message] The sy stem which generated this [...] (test code = 71.1 fL 38.5-51.6 H 76800-7) RDW-CV (test code = 20.2 % 12.1-15.4 H 788-0) PLT (test code = 149 See_Comment L [Automated 777-3) message] The sy stem which generated this result transmitted reference range : 150 - 328 10*3/ ?L. The reference r carroll was not used to interpret this result as normal/abnormal . MPV (test code = 12.6 fL 9.8-13.0 81104-1) IPF % (test code = 6.6 % 1.2-10.7 Platelet count 5371743687) measured by fluorescence method. NRBC/100 WBC (test 0.3 See_Comment [Automat ed code = 4250382739) message] The system which generated this result transmitted reference range : 0.0 - 10.0 /100 WBCs. The refer ence range was not u sed to interpret th is result as normal/abnormal . NRBC x10^3 (test code 0.02 See_Comment [Auto mated = 4485819737) message] The s ystem which generated this result transmitted reference range : 10*3/?L. The reference range was not used to interpret this result as normal/abnormal . GRAN MAT (NEUT) % 61.6 % (test code = 770-8) IMM GRAN % (test code 0.60 % = 4868187988) LYMPH % (test code = 26.2 % 736-9) MONO % (test code = 8.2 % 5905-5) EOS % (test code = 2.8 % 713-8) BASO % (test code = 0.6 % 706-2) GRAN MAT x10^3(ANC) 4.18 10*3/uL 1.99-6.95 (test code = 1410560702) IMM GRAN x10^3 (test 0.04 10*3/uL 0.00-0.06 code = 1098338776) LYMPH x10^3 (test code 1.78 10*3/uL 1.09-3.23 = 731-0) MONO x10^3 (test code 0.56 10*3/uL 0.36-1.02 = 742-7) EOS x10^3 (test code = 0.19 10*3/uL 0.06-0.53 711-2) BASO x10^3 (test code 0.04 10*3/uL 0.01-0.09 = 704-7) Lab Interpretation Abnormal (test code = 93030-0) [facility] WITH [id number] 06:13:11 Test Item Value Reference Range Interpretation [...] (test code = 67.6 fL 38.5-51.6 H 84358-4) RDW-CV (test code = 19.7 % 12.1-15.4 H 788-0) PLT (test code = 109 See_Comment L [Automated 777-3) message] The sy stem which generated this result transmitted reference range : 150 - 328 10*3/ ?L. The reference r carroll was not used to interpret this result as normal/abnormal . MPV (test code = 12.4 fL 9.8-13.0 07240-9) IPF % (test code = 6.7 % 1.2-10.7 Platelet count 0788443046) measured by fluorescence method. NRBC/100 WBC (test 0.0 See_Comment [Automat ed code = 9824115159) message] The system which generated this result transmitted reference range : 0.0 - 10.0 /100 WBCs. The refer ence range was not u sed to interpret th is result as normal/abnormal . NRBC x10^3 (test code See_Comment [Auto mated = 6203171401) message] The s ystem which generated this result transmitted reference range : 10*3/?L. The reference range was not used to interpret this result as normal/abnormal . GRAN MAT (NEUT) % 61.3 % (test code = 770-8) IMM GRAN % (test code 0.50 % = 9481464804) LYMPH % (test code = 25.8 % 736-9) MONO % (test code = 9.0 % 5905-5) EOS % (test code = 2.8 % 713-8) BASO % (test code = 0.6 % 706-2) GRAN MAT x10^3(ANC) 3.98 10*3/uL 1.99-6.95 (test code = 0528296687) IMM GRAN x10^3 (test 0.03 10*3/uL 0.00-0.06 code = 9575680751) LYMPH x10^3 (test code 1.67 10*3/uL 1.09-3.23 = 731-0) MONO x10^3 (test code 0.58 10*3/uL 0.36-1.02 = 742-7) EOS x10^3 (test code = 0.18 10*3/uL 0.06-0.53 711-2) BASO x10^3 (test code 0.04 10*3/uL 0.01-0.09 = 704-7) Lab Interpretation Abnormal (test code = 90605-0) [facility]COMP[facility]OLIC [facility] ([id number])2022-10-08 05:26:45 Test Item Value Reference Range Interpretation Comments NA (test code = 138 mmol/L 135-145 8566465971) K (test code = 4.1 mmol/L 3.5-5.0 9436851424) CL (test code = 100 mmol/L 98-108 8815069305) CO2 TOTAL (test code = 29 mmol/L 23-31 5172889232) AGAP (test code = 9 2-16 3619170845) BUN (test code = 31 mg/dL 7-23 H 5629535438) GLUCOSE (test code = 103 mg/dL 70-110 2042649452) CREATININE (test code = 4.25 mg/dL 0.60-1.25 H 4776245958) TOTAL BILI (test code = 0.9 mg/dL 0.1-1.7 4581915194) CALCIUM (test code = 8.2 mg/dL 8.6-10.6 L 1818892422) T PROTEIN (test code = 7.7 g/dL 6.3-8.2 8071986728) ALBUMIN (test code = 3.6 g/dL 3.5-5.0 6667920276) ALK PHOS (test code = 72 U/L 34-122 2662873023) ALTv (test code = 15 U/L 5-50 1742-6) AST(SGOT) (test code = 17 U/L 13-40 7410046066) eGFR (test code = 13.6 mL/min/1.73m2 8266487008) TAMARA (test code = TAMARA) Association of [...] tests). Lab Interpretation Abnormal (test code = 47214-3) [facility] HospitalTIFFANYN [id number] 06:03:10 Test Item Value Reference Interpretation Comments Range TROPONIN I (test 0.072 ng/mL See_Comment H [Automated code = 1185932150) message] The system which generated this result [...] biotin. Lab Interpretation Abnormal (test code = 48951-2) [facility]. METABOLIC PANEL ([id number])2022-07-30 05:51:28 Test Item Value Reference Range Interpretation Comments NA (test code = 138 mmol/L 135-145 5408211871) K (test code = 4.4 mmol/L 3.5-5.0 3241306344) CL (test code = 98 mmol/L 98-108 7593090405) CO2 TOTAL (test code = 33 mmol/L 23-31 H 3791947205) AGAP (test code = 2-16 8377268371) BUN (test code = 35 mg/dL 7-23 H 8291684184) GLUCOSE (test code = 87 mg/dL 70-110 4408592193) CREATININE (test code = 4.56 mg/dL 0.60-1.25 H 0329021085) TOTAL BILI (test code = 0.8 mg/dL 0.1-1.9 1561791528) CALCIUM (test code = 7.7 mg/dL 8.6-10.6 L 6862026504) T PROTEIN (test code = 7.5 g/dL 6.3-8.2 1207759591) ALBUMIN (test code = 3.3 g/dL 3.5-5.0 L 8285146885) ALK PHOS (test code = 78 U/L 34-122 4714195904) ALTv (test code = 16 U/L 5-50 1742-6) AST(SGOT) (test code = 27 U/L 13-40 2566756754) eGFR (test code = mL/min/1.73m2 6795725340) TAMARA (test code = TAMARA) Association of [...] tests). Lab Interpretation Abnormal (test code = 37392-5) [facility] 05:51:07 Test Item Value Reference Range Interpretation Comments LIPASE (test code = 4870758923) 126 U/L 0-220 Lab Interpretation (test code = Normal 16213-1) [facility] WITH [id number] 04:48:28 Test Item Value Reference Range Interpretation [...] (test code = 61.8 fL 38.5-51.6 H 78563-9) RDW-CV (test code = 18.7 % 12.1-15.4 H 788-0) PLT (test code = See_Comment [Automated 777-3) message] The sy stem which generated this result transmitted reference range : 150 - 328 10*3/ ?L. The reference r carroll was not used to interpret this result as normal/abnormal . MPV (test code = 11.4 fL 9.8-13.0 77375-6) NRBC/100 WBC (test See_Comment [Automat ed code = 8882960059) message] The system which generated this result transmitted reference range : 0.0 - 10.0 /100 WBCs. The refer ence range was not u sed to interpret th is result as normal/abnormal . NRBC x10^3 (test code See_Comment [Auto mated = 1722400487) message] The s ystem which generated this result transmitted reference range : 10*3/?L. The reference range was not used to interpret this result as normal/abnormal . GRAN MAT (NEUT) % 67.3 % (test code = 770-8) IMM GRAN % (test code 0.80 % = 6363129916) LYMPH % (test code = 21.7 % 736-9) MONO % (test code = 7.9 % 5905-5) EOS % (test code = 1.7 % 713-8) BASO % (test code = 0.6 % 706-2) GRAN MAT x10^3(ANC) 5.19 10*3/uL 1.99-6.95 (test code = 2646128144) IMM GRAN x10^3 (test 0.06 10*3/uL 0.00-0.06 code = 8272003907) LYMPH x10^3 (test code 1.67 10*3/uL 1.09-3.23 = 731-0) MONO x10^3 (test code 0.61 10*3/uL 0.36-1.02 = 742-7) EOS x10^3 (test code = 0.13 10*3/uL 0.06-0.53 711-2) BASO x10^3 (test code 0.05 10*3/uL 0.01-0.09 = 704-7) Lab Interpretation Abnormal (test code = 95856-1) [facility] [place] [place] Metabolic Panel (NA, K, CL, CO2, GLUCOSE, BUN, CREATININE, CA)2022-07-14 12:37:43 Test Item Value Reference Range Interpretation Comments NA (test code = 141 mmol/L 135-145 6192610169) K (test code = 4.7 mmol/L 3.5-5.0 8084816078) CL (test code = 98 mmol/L 98-108 1308055904) CO2 TOTAL (test code = 34 mmol/L 23-31 H 0476668530) AGAP (test code = 2-16 9023517629) BUN (test code = 41 mg/dL 7-23 H 5093129006) GLUCOSE (test code = 80 mg/dL 70-110 3334434539) CREATININE (test code = 5.92 mg/dL 0.60-1.25 H 4275205404) CALCIUM (test code = 7.4 mg/dL 8.6-10.6 L 8928602377) eGFR (test code = mL/min/1.73m2 5107330470) TAMARA (test code = TAMARA) Association of [...] tests). Lab Interpretation Abnormal (test code = 99552-3) [facility] with [id number] 11:21:54 Test Item Value Reference Range Interpretation Comments WBC (test code = See_Comment [Automated 7571-2) message] The sy stem which generated this result transmitted reference range : 4.20 - 10.70 10*3/?L. The reference range was not used to interpret this result as normal/abnormal . RBC (test code = See_Comment L [Automated 709-8) message] The sy stem which generated this [...] (test code = 60.0 fL 38.5-51.6 H 55740-0) RDW-CV (test code = 17.4 % 12.1-15.4 H 788-0) PLT (test code = See_Comment [Automated 777-3) message] The sy stem which generated this result transmitted reference range : 150 - 328 10*3/ ?L. The reference r carroll was not used to interpret this result as normal/abnormal . MPV (test code = 12.0 fL 9.8-13.0 98516-1) NRBC/100 WBC (test See_Comment [Automat ed code = 4820479116) message] The system which generated this result transmitted reference range : 0.0 - 10.0 /100 WBCs. The refer ence range was not u sed to interpret th is result as normal/abnormal . NRBC x10^3 (test code See_Comment [Auto mated = 8071258543) message] The s ystem which generated this result transmitted reference range : 10*3/?L. The reference range was not used to interpret this result as normal/abnormal . GRAN MAT (NEUT) % 56.7 % (test code = 770-8) IMM GRAN % (test code 0.80 % = 4945513321) LYMPH % (test code = 27.0 % 736-9) MONO % (test code = 11.8 % 5905-5) EOS % (test code = 2.9 % 713-8) BASO % (test code = 0.8 % 706-2) GRAN MAT x10^3(ANC) 2.92 10*3/uL 1.99-6.95 (test code = 5493213358) IMM GRAN x10^3 (test 0.04 10*3/uL 0.00-0.06 code = 0555655612) LYMPH x10^3 (test code 1.39 10*3/uL 1.09-3.23 = 731-0) MONO x10^3 (test code 0.61 10*3/uL 0.36-1.02 = 742-7) EOS x10^3 (test code = 0.15 10*3/uL 0.06-0.53 711-2) BASO x10^3 (test code 0.04 10*3/uL 0.01-0.09 = 704-7) Lab Interpretation Abnormal (test code = 30542-9) [facility] METABOLIC PANEL (NA, K, CL, CO2, GLUCOSE, BUN, CREATININE, CA)2022-06-09 04:48:27 Test Item Value Reference Range Interpretation Comments NA (test code = 139 mmol/L 135-145 7207445238) K (test code = 5.6 mmol/L 3.5-5.0 H 3225990339) CL (test code = 101 mmol/L 98-108 8034974489) CO2 TOTAL (test code = 29 mmol/L 23-31 2129665652) AGAP (test code = 2-16 0160107776) BUN (test code = 44 mg/dL 7-23 H 7583748472) GLUCOSE (test code = 76 mg/dL 70-110 0203385440) CREATININE (test code = 5.68 mg/dL 0.60-1.25 H 7990357266) CALCIUM (test code = 8.2 mg/dL 8.6-10.6 L 7263460777) eGFR (test code = mL/min/1.73m2 2404434832) TAMARA (test code = TAMARA) Association of [...] tests). Lab Interpretation Abnormal (test code = 80815-4) [facility] WITH [id number] 04:34:03 Test Item Value Reference Range Interpretation Comments WBC (test code = See_Comment [Automated 4790-2) message] The sy stem which generated this result transmitted reference range : 4.20 - 10.70 10*3/?L. The reference range was not used to interpret this result as normal/abnormal . RBC (test code = See_Comment L [Automated 079-8) message] The sy stem which generated this [...] (test code = 61.2 fL 38.5-51.6 H 94117-9) RDW-CV (test code = 17.8 % 12.1-15.4 H 788-0) PLT (test code = See_Comment L [Automated 777-3) message] The sy stem which generated this result transmitted reference range : 150 - 328 10*3/ ?L. The reference r carroll was not used to interpret this result as normal/abnormal . MPV (test code = 11.7 fL 9.8-13.0 72009-7) NRBC/100 WBC (test See_Comment [Automat ed code = 9389721698) message] The system which generated this result transmitted reference range : 0.0 - 10.0 /100 WBCs. The refer ence range was not u sed to interpret th is result as normal/abnormal . NRBC x10^3 (test code See_Comment [Auto mated = 7389625788) message] The s ystem which generated this result transmitted reference range : 10*3/?L. The reference range was not used to interpret this result as normal/abnormal . GRAN MAT (NEUT) % 61.1 % (test code = 770-8) IMM GRAN % (test code 0.30 % = 0066079891) LYMPH % (test code = 27.2 % 736-9) MONO % (test code = 7.5 % 5905-5) EOS % (test code = 3.3 % 713-8) BASO % (test code = 0.6 % 706-2) GRAN MAT x10^3(ANC) 4.30 10*3/uL 1.99-6.95 (test code = 0778038431) IMM GRAN x10^3 (test 0.00-0.06 code = 8259014909) LYMPH x10^3 (test code 1.91 10*3/uL 1.09-3.23 = 731-0) MONO x10^3 (test code 0.53 10*3/uL 0.36-1.02 = 742-7) EOS x10^3 (test code = 0.23 10*3/uL 0.06-0.53 711-2) BASO x10^3 (test code 0.04 10*3/uL 0.01-0.09 = 704-7) Lab Interpretation Abnormal (test code = 90565-0) [facility] GLUCOSE (AUTOMATED)2022-05-02 15:18:16 Test Item Value Reference Range Interpretation Comments POCT GLU (test code = 0770657670) 115 mg/dL 70-110 H Lab Interpretation (test code = Abnormal 03327-0) [facility] GLUCOSE (AUTOMATED)2022-05-02 01:07:47 Test Item Value Reference Range Interpretation Comments POCT GLU (test code = 6168678458) 159 mg/dL 70-110 H Lab Interpretation (test code = Abnormal 36673-2) [facility] GLUCOSE (AUTOMATED)2022-05-01 17:45:26 Test Item Value Reference Range Interpretation Comments POCT GLU (test code = 2443725769) 86 mg/dL 70-110 Lab Interpretation (test code = Normal 23058-6) [facility] GLUCOSE (AUTOMATED)2022-05-01 13:56:04 Test Item Value Reference Range Interpretation Comments POCT GLU (test code = 5358490834) 80 mg/dL 70-110 Lab Interpretation (test code = Normal 63831-7) [facility] METABOLIC PANEL (NA, K, CL, CO2, GLUCOSE, BUN, CREATININE, CA)2022-05-01 10:44:43 Test Item Value Reference Range Interpretation Comments NA (test code = 137 mmol/L 135-145 7523032272) K (test code = 5.0 mmol/L 3.5-5 5972309489) CL (test code = 101 mmol/L 98-108 8253622208) CO2 TOTAL (test code = 25 mmol/L 23-31 3578862249) AGAP (test code = 2-16 6032770140) BUN (test code = 44 mg/dL 7-23 H 3230147080) GLUCOSE (test code = 81 mg/dL 70-110 2952824580) CREATININE (test code = 7.45 mg/dL 0.6-1.25 H 8431120826) CALCIUM (test code = 9.4 mg/dL 8.6-10.6 3138955395) eGFR (test code = mL/min/1.73m2 6984215220) TAMARA (test code = TAMARA) Association of [...] tests). Lab Interpretation Abnormal (test code = 22457-5) [facility] WITH [id number] 10:07:39 Test Item Value Reference Range Interpretation Comments WBC (test code = See_Comment [Automated 1337-2) message] The sy stem which generated this result transmitted reference range : 4.20 - 10.70 10*3/?L. The reference range was not used to interpret this result as normal/abnormal . RBC (test code = See_Comment L [Automated 399-8) message] The sy stem which generated this [...] (test code = 62.7 fL 38.5-51.6 H 05219-4) RDW-CV (test code = 18.4 % 12.1-15.4 H 788-0) PLT (test code = See_Comment L [Automated 777-3) message] The sy stem which generated this result transmitted reference range : 150 - 328 10*3/ ?L. The reference r carroll was not used to interpret this result as normal/abnormal . MPV (test code = 10.6 fL 9.8-13 71605-5) NRBC/100 WBC (test See_Comment [Automat ed code = 3316719800) message] The system which generated this result transmitted reference range : 0.0 - 10.0 /100 WBCs. The refer ence range was not u sed to interpret th is result as normal/abnormal . NRBC x10^3 (test code See_Comment [Auto mated = 7211665086) message] The s ystem which generated this result transmitted reference range : 10*3/?L. The reference range was not used to interpret this result as normal/abnormal . GRAN MAT (NEUT) % 56.5 % (test code = 770-8) IMM GRAN % (test code 0.30 % = 2150869490) LYMPH % (test code = 27.6 % 736-9) MONO % (test code = 9.1 % 5905-5) EOS % (test code = 5.9 % 713-8) BASO % (test code = 0.6 % 706-2) GRAN MAT x10^3(ANC) 4.92 10*3/uL 1.99-6.95 (test code = 6165861136) IMM GRAN x10^3 (test 0.03 10*3/uL 0-0.06 code = 4764575252) LYMPH x10^3 (test code 2.40 10*3/uL 1.09-3.23 = 731-0) MONO x10^3 (test code 0.79 10*3/uL 0.36-1.02 = 742-7) EOS x10^3 (test code = 0.51 10*3/uL 0.06-0.53 711-2) BASO x10^3 (test code 0.05 10*3/uL 0.01-0.09 = 704-7) Lab Interpretation Abnormal (test code = 93170-1) [facility] GLUCOSE (AUTOMATED)2022-05-01 02:56:18 Test Item Value Reference Range Interpretation Comments POCT GLU (test code = 2005684759) 95 mg/dL 70-110 Lab Interpretation (test code = Normal 85050-0) [facility] GLUCOSE (AUTOMATED)2022-04-29 21:27:56 Test Item Value Reference Range Interpretation Comments POCT GLU (test code = 3103774619) 98 mg/dL 70-110 Lab Interpretation (test code = Normal 84445-8) [facility] GLUCOSE (AUTOMATED)2022-04-29 16:43:50 Test Item Value Reference Range Interpretation Comments POCT GLU (test code = 4278921671) 94 mg/dL 70-110 Lab Interpretation (test code = Normal 88758-6) [facility] METABOLIC PANEL (NA, K, CL, CO2, GLUCOSE, BUN, CREATININE, CA)2022-04-29 13:33:55 Test Item Value Reference Range Interpretation Comments NA (test code = 137 mmol/L 135-145 3503293249) K (test code = 4.7 mmol/L 3.5-5 9681695451) CL (test code = 100 mmol/L 98-108 8833949120) CO2 TOTAL (test code = 28 mmol/L 23-31 0138509971) AGAP (test code = 2-16 5403476333) BUN (test code = 37 mg/dL 7-23 H 1597043446) GLUCOSE (test code = 87 mg/dL 70-110 8816195271) CREATININE (test code = 5.74 mg/dL 0.6-1.25 H 1772459056) CALCIUM (test code = 9.0 mg/dL 8.6-10.6 8707158376) eGFR (test code = mL/min/1.73m2 8470114952) TAMARA (test code = TAMARA) Association of [...] tests). Lab Interpretation Abnormal (test code = 13807-6) [facility]:33:55 Test Item Value Reference Range Interpretation Comments MAGNESIUM (test code = 4487452299) 1.7 mg/dL 1.7-2.4 Lab Interpretation (test code = Normal 97720-2) [facility] 13:33:55 Test Item Value Reference Range Interpretation Comments PHOSPHORUS (test code = 9032705615) 5.9 mg/dL 2.5-5 H Lab Interpretation (test code = Abnormal 61563-2) [facility] [id number] 13:25:56 Test Item Value Reference Range Interpretation Comments WBC (test code = See_Comment [Automated 1290-2) message] The sy stem which generated this [...] (test code = 63.2 fL 38.5-51.6 H 09825-6) RDW-CV (test code = 18.7 % 12.1-15.4 H 788-0) PLT (test code = See_Comment L [Automated 777-3) message] The sy stem which generated this result transmitted reference range : 150 - 328 10*3/ ?L. The reference r carroll was not used to interpret this result as normal/abnormal . MPV (test code = 11.2 fL 9.8-13 41151-0) NRBC/100 WBC (test See_Comment [Automat ed code = 6192589092) message] The system which generated this result transmitted reference range : 0.0 - 10.0 /100 WBCs. The refer ence range was not u sed to interpret th is result as normal/abnormal . NRBC x10^3 (test code See_Comment [Auto mated = 6768610983) message] The s ystem which generated this result transmitted reference range : 10*3/?L. The reference range was not used to interpret this result as normal/abnormal . GRAN MAT (NEUT) % 59.0 % (test code = 770-8) IMM GRAN % (test code 0.50 % = [id number]) LYMPH % (test code = 25.3 % 736-9) MONO % (test code = 9.1 % 5905-5) EOS % (test code = 5.6 % 713-8) BASO % (test code = 0.5 % 706-2) GRAN MAT x10^3(ANC) 4.29 10*3/uL 1.99-6.95 (test code = 2148909006) IMM GRAN x10^3 (test 0.04 10*3/uL 0-0.06 code = [id number]) LYMPH x10^3 (test code 1.84 10*3/uL 1.09-3.23 = 731-0) MONO x10^3 (test code 0.66 10*3/uL 0.36-1.02 = 742-7) EOS x10^3 (test code = 0.41 10*3/uL 0.06-0.53 711-2) BASO x10^3 (test code 0.04 10*3/uL 0.01-0.09 = 704-7) Lab Interpretation Abnormal (test code = 96522-8) [facility] GLUCOSE (AUTOMATED)2022-04-29 13:08:57 Test Item Value Reference Range Interpretation Comments POCT GLU (test code = [id number]) 83 mg/dL 70-110 Lab Interpretation (test code = Normal 38106-2) [facility] GLUCOSE (AUTOMATED)2022-04-29 00:57:51 Test Item Value Reference Range Interpretation Comments POCT GLU (test code = 116 mg/dL 70-110 H Notifi ed Provider [id number]) Lab Interpretation (test Abnormal code = 10666-6) [facility] GLUCOSE (AUTOMATED)2022-04-28 22:51:23 Test Item Value Reference Range Interpretation Comments POCT GLU (test code = [id number]) 141 mg/dL 70-110 H Lab Interpretation (test code = Abnormal 73175-5) [facility]:22:21 Test Item Value Reference Range Interpretation Comments Height (test code = in 4121429238) Weight (test code = lbs 0325361812) Systolic BP (test code mmHg = 4767892733) Diastolic BP (test code mmHg = 9292034037) Heart Rate (test code = bpm 6150106027) BSA (test code = 2.04 m2 5863105272) Ao root diam (test code 3.50 cm = 6685360864) Aortic root (test code 3.5 cm = 1322873922) Ao root annulus (test 3.5 cm code = 2445483036) LA size (test code = 3.9 cm 6923603797) LVOT diameter (test 1.99 cm code = 8701055774) LVOT area (test code = 3.10 cm2 2790794570) LVIDD (test code = 5.50 cm 0169913729) Left Ventricular End 149.2 mL Diastolic Volume by Teichholz Method (test code = 8857663) IVS (test code = 0.86 cm 6892920850) Interventricular Septum 0.86 cm Diastolic Thickness by 2D (test code = 4051643) LVPWD (test code = 0.89 cm 2471393180) PW (test code = 0.89 cm 0.6-1.8 4713915397) EF(Teich) (test code = 50.30 % 5366489350) LVIDS (test code = 4.10 cm 2939091282) Left Ventricular End 74.2 mL Systolic Volume by Teichholz Method (test code = 4969825) FS (test code = 26 % 0524082186) EF - 2D (test code = 50.30 % 69815282) MV valve area p 1/2 4.10 cm2 method (test code = 1827581754) MV dec slope (test code 721.90 cm/s2 = 0225264226) MV P1/2t max talha (test 133.30 cm/s code = 8965257269) MV Peak E Talha (test 135.0 cm/s code = 2074017830) MV Peak A Talha (test 143.1 cm/s code = 6795706534) E/A ratio (test code = ratio 7358953139) MV Prop V (test code = 73.20 cm/s 0526160238) Tapse (test code = 3.2 cm 1756698359) MV E/e' septal (test 7.4 cm/s code = 4695375538) LVOT stroke volume 64.20 cm3 (test code = 4857395326) LVOT peak talha (test 95.1 cm/s code = 8792687826) LVOT mn grad (test code mmHg = 0913322015) AV LVOT peak gradient mmHg (test code = 1770102509) LVOT peak VTI (test 20.6 cm code = 3610491774) LV V1 mean (test code = 62.50 cm/s 7861269164) Aortic valve mean 263.9 cm/s velocity (test code = 9384889459) Ao peak talha (test code 370.1 cm/s = 5415581789) Ao VTI (test code = 89.5 cm 3223443504) AV area by cont VTI 0.7 cm2 (test code = 0557279039) AV area peak talha (test 0.8 cm2 code = 9994511844) Ao max PG (test code = 54.80 mm[Hg] 4135082776) AV peak gradient (test mmHg code = 0206363995) AV valve area (test 0.72 cm2 code = 1319161748) AV mean gradient (test mmHg code = 0057295014) AV regurgitation 548.9 ms pressure 1/2 time (test code = 6462455158) AI dec slope (test code 198.80 cm/s2 = 2906413677) AI max talha (test code = 372.70 cm/s 0983746544) AI max PG (test code = 55.50 mm[Hg] 2184214995) Radiology Study observation (narrative) (test code = 35202-6) TAMARA (test code = TAMARA) ?Right?Ventricle: Right [...] 2D, color flow Doppler and spectral Doppler. [facility] GLUCOSE (AUTOMATED)2022-04-28 17:19:26 Test Item Value Reference Range Interpretation Comments POCT GLU (test code = 5317429956) 80 mg/dL 70-110 Lab Interpretation (test code = Normal 63510-1) [facility] GLUCOSE (AUTOMATED)2022-04-28 13:25:30 Test Item Value Reference Range Interpretation Comments POCT GLU (test code = 7845410557) 98 mg/dL 70-110 Lab Interpretation (test code = Normal 41824-4) [facility] METABOLIC PANEL (NA, K, CL, CO2, GLUCOSE, BUN, CREATININE, CA)2022-04-28 07:58:12 Test Item Value Reference Range Interpretation Comments NA (test code = 136 mmol/L 135-145 0132331494) K (test code = 5.5 mmol/L 3.5-5 H 9372896190) CL (test code = 99 mmol/L 98-108 5518183805) CO2 TOTAL (test code = 30 mmol/L 23-31 6469610020) AGAP (test code = 2-16 6351985576) BUN (test code = 43 mg/dL 7-23 H 3812643965) GLUCOSE (test code = 84 mg/dL 70-110 4507172412) CREATININE (test code = 6.28 mg/dL 0.6-1.25 H 9799964975) CALCIUM (test code = 9.1 mg/dL 8.6-10.6 9030393997) eGFR (test code = mL/min/1.73m2 1190933289) TAMARA (test code = TAMARA) Association of [...] tests). Lab Interpretation Abnormal (test code = 78704-2) [facility] Test Item Value Reference Range Interpretation Comments MAGNESIUM (test code = 0937895278) 1.8 mg/dL 1.7-2.4 Lab Interpretation (test code = Normal 83831-9) [facility] WITH [id number] 07:40:46 Test Item Value Reference Range Interpretation [...] (test code = 64.6 fL 38.5-51.6 H 24556-4) RDW-CV (test code = 19.4 % 12.1-15.4 H 788-0) PLT (test code = See_Comment L [Automated 777-3) message] The sy stem which generated this result transmitted reference range : 150 - 328 10*3/ ?L. The reference r carroll was not used to interpret this result as normal/abnormal . MPV (test code = 10.9 fL 9.8-13 77598-4) NRBC/100 WBC (test See_Comment [Automat ed code = 2603953410) message] The system which generated this result transmitted reference range : 0.0 - 10.0 /100 WBCs. The refer ence range was not u sed to interpret th is result as normal/abnormal . NRBC x10^3 (test code See_Comment [Auto mated = 0936823743) message] The s ystem which generated this result transmitted reference range : 10*3/?L. The reference range was not used to interpret this result as normal/abnormal . GRAN MAT (NEUT) % 47.9 % (test code = 770-8) IMM GRAN % (test code 0.10 % = 3360521105) LYMPH % (test code = 38.9 % 736-9) MONO % (test code = 8.6 % 5905-5) EOS % (test code = 3.8 % 713-8) BASO % (test code = 0.7 % 706-2) GRAN MAT x10^3(ANC) 3.38 10*3/uL 1.99-6.95 (test code = 7130633879) IMM GRAN x10^3 (test 0-0.06 code = 8629640125) LYMPH x10^3 (test code 2.75 10*3/uL 1.09-3.23 = 731-0) MONO x10^3 (test code 0.61 10*3/uL 0.36-1.02 = 742-7) EOS x10^3 (test code = 0.27 10*3/uL 0.06-0.53 711-2) BASO x10^3 (test code 0.05 10*3/uL 0.01-0.09 = 704-7) Lab Interpretation Abnormal (test code = 08947-5) [facility] METABOLIC PANEL (NA, K, CL, CO2, GLUCOSE, BUN, CREATININE, CA)2022-04-27 22:46:00 Test Item Value Reference Range Interpretation Comments NA (test code = 133 mmol/L 135-145 L 8930684486) K (test code = 5.3 mmol/L 3.5-5 H 3607722491) CL (test code = 97 mmol/L 98-108 L 7594903950) CO2 TOTAL (test code = 32 mmol/L 23-31 H 5524401920) AGAP (test code = 2-16 3111788751) BUN (test code = 36 mg/dL 7-23 H 2540781716) GLUCOSE (test code = 101 mg/dL 70-110 9298026097) CREATININE (test code = 5.26 mg/dL 0.6-1.25 H 3863912310) CALCIUM (test code = 9.4 mg/dL 8.6-10.6 4485004635) eGFR (test code = mL/min/1.73m2 8748264774) TAMARA (test code = TAMARA) Association of [...] tests). Lab Interpretation Abnormal (test code = 48379-4) [facility] 22:46:00 Test Item Value Reference Range Interpretation Comments MAGNESIUM (test code = 1968270737) 1.7 mg/dL 1.7-2.4 Lab Interpretation (test code = Normal 52490-6) [facility] WITH [id number] 22:34:24 Test Item Value Reference Range Interpretation Comments WBC (test code = See_Comment [Automated 8090-2) message] The sy stem which generated this result transmitted reference range : 4.20 - 10.70 10*3/?L. The reference range was not used to interpret this result as normal/abnormal . RBC (test code = See_Comment L [Automated 769-8) message] The sy stem which generated this [...] (test code = 62.8 fL 38.5-51.6 H 61389-7) RDW-CV (test code = 19.3 % 12.1-15.4 H 788-0) PLT (test code = See_Comment L [Automated 777-3) message] The sy stem which generated this result transmitted reference range : 150 - 328 10*3/ ?L. The reference r carroll was not used to interpret this result as normal/abnormal . MPV (test code = 11.4 fL 9.8-13 47475-4) IPF % (test code = 4.9 % 1.2-10.7 Platelet count 2688791234) measured by fluorescence method. NRBC/100 WBC (test See_Comment [Automat ed code = 1604467754) message] The system which generated this result transmitted reference range : 0.0 - 10.0 /100 WBCs. The refer ence range was not u sed to interpret th is result as normal/abnormal . NRBC x10^3 (test code See_Comment [Auto mated = 0315482803) message] The s ystem which generated this result transmitted reference range : 10*3/?L. The reference range was not used to interpret this result as normal/abnormal . GRAN MAT (NEUT) % 55.3 % (test code = 770-8) IMM GRAN % (test code 0.20 % = 3350914993) LYMPH % (test code = 34.6 % 736-9) MONO % (test code = 6.7 % 5905-5) EOS % (test code = 2.6 % 713-8) BASO % (test code = 0.6 % 706-2) GRAN MAT x10^3(ANC) 4.63 10*3/uL 1.99-6.95 (test code = 5813562957) IMM GRAN x10^3 (test 0-0.06 code = 6425807146) LYMPH x10^3 (test code 2.90 10*3/uL 1.09-3.23 = 731-0) MONO x10^3 (test code 0.56 10*3/uL 0.36-1.02 = 742-7) EOS x10^3 (test code = 0.22 10*3/uL 0.06-0.53 711-2) BASO x10^3 (test code 0.05 10*3/uL 0.01-0.09 = 704-7) Lab Interpretation Abnormal (test code = 36635-0) [facility] ([facility]), 1 Units 2022-04-27 18:47:23 Test Item Value Reference Range Interpretation Comments Cross Match Result Compatible (test code = 4409) ISBT Blood Type Code (test code = 161006) Unit Blood Type (test B Pos code = 4410) Unit Number (test [id number] code = 4411) Blood Expiration Date & Time (test code = 762473) Status Information Issued (test code = 4412) Product Red Blood Cells Identification (test code = 4413) Product Code (test [id number] Performed at [facility] code = 4414) Laboratory Services - [facility] [address] [place], [place] [address]Iiha Free: [phone] A No. [id number] [facility] Confirmation (Lab Only)2022-04-27 15:48:19 Test Item Value Reference Range Interpretation Comments ABO & RH (test code B Positive Performe d at [facility] = 20) Laboratory [facility] [address] [place], [place] [address]Toll Free: [phone] 266CLIA No. [id number] [facility] Screen - ONCE [id number] 15:41:23 Test Item Value Reference Range Interpretation Comments ABO & RH (test code B Positive Performe d at [facility] = 20) Laboratory [facility] [address] [place], [place] [address] 4Toll Free: [phone] 266CLIA No. [id number] IAT (test code = Negative Performed a t [facility] 1185) Laboratory [facility] [address] [place], [place] [address] 4Toll Free: [phone] 266CLIA No. [id number] [facility]IM[facility] [id number] 14:48:29 Test Item Value Reference Range Interpretation Comments TSH (test code = See_Comment Biotin has been 6241792360) reported to cau se a negative bias, interpret resul ts relative to pat dharmeshnt's use of biotin. [Automated mess age] The system Lignol generated this result transmitted ref erence range: 0.45 - 4 .70 mIU/L. The refe rence range was not u sed to interpret this result as normal/abnor mal. Lab Interpretation (test Normal code = 41262-8) [facility] (NA, K, CL, CO2, GLUCOSE, BUN, CREATININE, CA)2022-04-27 12:01:02 Test Item Value Reference Range Interpretation Comments NA (test code = 138 mmol/L 135-145 5637874463) K (test code = 7.1 mmol/L 3.5-5 HH 7092130008) CL (test code = 100 mmol/L 98-108 6875282871) CO2 TOTAL (test code = 31 mmol/L 23-31 9820192404) AGAP (test code = 2-16 4430128566) BUN (test code = 72 mg/dL 7-23 H 0439445946) GLUCOSE (test code = 90 mg/dL 70-110 3176774085) CREATININE (test code = 8.33 mg/dL 0.6-1.25 H 2682153885) CALCIUM (test code = 9.2 mg/dL 8.6-10.6 2083540101) eGFR (test code = mL/min/1.73m2 3971522524) TAMARA (test code = TAMARA) Association of [...] tests). Lab Interpretation Abnormal (test code = 74136-1) [facility] 11:58:34 Test Item Value Reference Range Interpretation Comments PHOSPHORUS (test code = 7613823311) 6.9 mg/dL 2.5-5 H Lab Interpretation (test code = Abnormal 11892-4) [facility] 11:58:34 Test Item Value Reference Range Interpretation Comments MAGNESIUM (test code = 6935515123) 1.8 mg/dL 1.7-2.4 Lab Interpretation (test code = Normal 56838-6) [facility] WITH [id number] 11:31:33 Test Item Value Reference Range Interpretation Comments WBC (test code = See_Comment [Automated 2831-2) message] The sy stem which generated this result transmitted reference range : 4.20 - 10.70 10*3/?L. The reference range was not used to interpret this result as normal/abnormal . RBC (test code = See_Comment L [Automated 010-7) message] The sy stem which generated this [...] (test code = 64.8 fL 38.5-51.6 H 60680-5) RDW-CV (test code = 18.7 % 12.1-15.4 H 788-0) PLT (test code = See_Comment L [Automated 777-3) message] The sy stem which generated this result transmitted reference range : 150 - 328 10*3/ ?L. The reference r carroll was not used to interpret this result as normal/abnormal . MPV (test code = 11.2 fL 9.8-13 38446-4) NRBC/100 WBC (test See_Comment [Automat ed code = 3268115202) message] The system which generated this result transmitted reference range : 0.0 - 10.0 /100 WBCs. The refer ence range was not u sed to interpret th is result as normal/abnormal . NRBC x10^3 (test code See_Comment [Auto mated = 0105767098) message] The s ystem which generated this result transmitted reference range : 10*3/?L. The reference range was not used to interpret this result as normal/abnormal . GRAN MAT (NEUT) % 69.8 % (test code = 770-8) IMM GRAN % (test code 0.10 % = 2092651703) LYMPH % (test code = 21.4 % 736-9) MONO % (test code = 6.4 % 5905-5) EOS % (test code = 1.9 % 713-8) BASO % (test code = 0.4 % 706-2) GRAN MAT x10^3(ANC) 4.90 10*3/uL 1.99-6.95 (test code = 5539183659) IMM GRAN x10^3 (test 0-0.06 code = 6711994003) LYMPH x10^3 (test code 1.50 10*3/uL 1.09-3.23 = 731-0) MONO x10^3 (test code 0.45 10*3/uL 0.36-1.02 = 742-7) EOS x10^3 (test code = 0.13 10*3/uL 0.06-0.53 711-2) BASO x10^3 (test code 0.03 10*3/uL 0.01-0.09 = 704-7) Lab Interpretation Abnormal (test code = 67019-6) [facility]2022-04-27 09:30:35 Test Item Value Reference Range Interpretation Comments POCT GLU (test code = 2080060159) 107 mg/dL 70-110 Lab Interpretation (test code = Normal 64139-5) [facility] METABOLIC PANEL (NA, K, CL, CO2, GLUCOSE, BUN, CREATININE, CA)2022-04-27 06:16:51 Test Item Value Reference Range Interpretation Comments NA (test code = 137 mmol/L 135-145 5379261585) K (test code = 6.7 mmol/L 3.5-5 HH 6605529784) CL (test code = 99 mmol/L 98-108 1597697046) CO2 TOTAL (test code = 29 mmol/L 23-31 5356685184) AGAP (test code = 2-16 9767012893) BUN (test code = 67 mg/dL 7-23 H 1701898792) GLUCOSE (test code = 75 mg/dL 70-110 2501865713) CREATININE (test code = 8.04 mg/dL 0.6-1.25 H 3724237976) CALCIUM (test code = 9.2 mg/dL 8.6-10.6 3837788026) eGFR (test code = mL/min/1.73m2 8216359289) TAMARA (test code = TAMARA) Association of [...] tests). Lab Interpretation Abnormal (test code = 86608-0) [facility] 06:13:15 Test Item Value Reference Range Interpretation Comments MAGNESIUM (test code = 9695175677) 1.7 mg/dL 1.7-2.4 Lab Interpretation (test code = Normal 91533-7) [facility] 06:13:15 Test Item Value Reference Range Interpretation Comments PHOSPHORUS (test code = 6936600236) 6.8 mg/dL 2.5-5 H Lab Interpretation (test code = Abnormal 64679-4) [facility] WITH [id number] 05:45:33 Test Item Value Reference Range Interpretation Comments WBC (test code = See_Comment [Automated 8070-2) message] The sy stem which generated this result transmitted reference range : 4.20 - 10.70 10*3/?L. The reference range was not used to interpret this result as normal/abnormal . RBC (test code = See_Comment L [Automated 285-8) message] The sy stem which generated this [...] (test code = 64.2 fL 38.5-51.6 H 79982-3) RDW-CV (test code = 18.6 % 12.1-15.4 H 788-0) PLT (test code = See_Comment L [Automated 777-3) message] The sy stem which generated this result transmitted reference range : 150 - 328 10*3/ ?L. The reference r carroll was not used to interpret this result as normal/abnormal . MPV (test code = 11.5 fL 9.8-13 38380-5) NRBC/100 WBC (test See_Comment [Automat ed code = 5616132662) message] The system which generated this result transmitted reference range : 0.0 - 10.0 /100 WBCs. The refer ence range was not u sed to interpret th is result as normal/abnormal . NRBC x10^3 (test code See_Comment [Auto mated = 9660425262) message] The s ystem which generated this result transmitted reference range : 10*3/?L. The reference range was not used to interpret this result as normal/abnormal . GRAN MAT (NEUT) % 70.2 % (test code = 770-8) IMM GRAN % (test code 0.30 % = 1454932172) LYMPH % (test code = 21.2 % 736-9) MONO % (test code = 6.2 % 5905-5) EOS % (test code = 1.6 % 713-8) BASO % (test code = 0.5 % 706-2) GRAN MAT x10^3(ANC) 5.18 10*3/uL 1.99-6.95 (test code = 3785539406) IMM GRAN x10^3 (test 0-0.06 code = 9506266958) LYMPH x10^3 (test code 1.57 10*3/uL 1.09-3.23 = 731-0) MONO x10^3 (test code 0.46 10*3/uL 0.36-1.02 = 742-7) EOS x10^3 (test code = 0.12 10*3/uL 0.06-0.53 711-2) BASO x10^3 (test code 0.04 10*3/uL 0.01-0.09 = 704-7) Lab Interpretation Abnormal (test code = 35491-5) [facility] GLUCOSE (AUTOMATED)2022-04-27 03:50:48 Test Item Value Reference Range Interpretation Comments POCT GLU (test code = 4618798028) 85 mg/dL 70-110 Lab Interpretation (test code = Normal 31959-3) [facility] GLUCOSE (AUTOMATED)2022-04-26 23:31:15 Test Item Value Reference Range Interpretation Comments POCT GLU (test code = 8213936804) 78 mg/dL 70-110 Lab Interpretation (test code = Normal 83062-5) [facility] GLUCOSE (AUTOMATED)2022-04-26 23:18:19 Test Item Value Reference Range Interpretation Comments POCT GLU (test code = 2872283576) 64 mg/dL 70-110 L Lab Interpretation (test code = Abnormal 17340-2) [facility] GLUCOSE (AUTOMATED)2022-04-26 23:00:59 Test Item Value Reference Range Interpretation Comments POCT GLU (test code = 0956944452) 57 mg/dL 70-110 L Lab Interpretation (test code = Abnormal 21376-2) [facility] GLUCOSE (AUTOMATED)2022-04-26 22:37:20 Test Item Value Reference Range Interpretation Comments POCT GLU (test code = 53 mg/dL 70-110 L Notifi ed Provider 0572134347) Lab Interpretation (test Abnormal code = 70528-5) [facility]2022-04-26 21:37:24 Test Item Value Reference Range Interpretation Comments HGB A1C (test code = 5.2 % 4-5.7 4548-4) TAMARA (test code = TAMARA) Reference RangesNormal: <5.7%Prediabetes: 5.7 - 6.4%Diabetes: > 6.5% Lab Interpretation (test Normal code = 68716-8) [facility] ([facility]BsAb)2022-04-26 21:21:39 Test Item Value Reference Range Interpretation Comments HBsAB (test code = Indeterminate 5966627243) HBsAb mIU/mL Semi-Quantitative (test code = 2387771123) TAMARA (test code = Unable to determine if TAMARA) antibody to Hepatitis B Surface Antigen is present at levels consistent with immunity. ?Patient's immune status should be assessed with other clinical information and/or retesting in 4-6 weeks as clinically indicated. ?If any questions, please contact Clinical Chemistry Director financial institution president at .Unable to determine if antibody to Hepatitis B Surface Antigen is present at levels consistent with immunity. ?Patient's immune status should be assessed with other clinical information and/or retesting in 4-6 weeks as clinically indicated. ?If any questions, please contact Clinical Chemistry Director financial institution president at .Interpretati on: ?Hepatitis B Surface Antibody ? Negative - Patient is considered to be not immune to infection with HBV. ? ? Positive - Anti-HBs detected at greater than or equal to 12 mIU/mL. ?Patient is considered to be immune to infection with HBV. ? [facility] (NA, K, CL, CO2, GLUCOSE, BUN, CREATININE, CA)2022-04-26 20:31:55 Test Item Value Reference Range Interpretation Comments NA (test code = 139 mmol/L 135-145 4062040135) K (test code = 5.7 mmol/L 3.5-5 H 5424181102) CL (test code = 101 mmol/L 98-108 2479332741) CO2 TOTAL (test code = 25 mmol/L 23-31 5415262604) AGAP (test code = 2-16 1103415099) BUN (test code = 58 mg/dL 7-23 H 9530703401) GLUCOSE (test code = 58 mg/dL 70-110 L 4989700845) CREATININE (test code = 7.22 mg/dL 0.6-1.25 H 8090605739) CALCIUM (test code = 9.4 mg/dL 8.6-10.6 7082481053) eGFR (test code = mL/min/1.73m2 7506674705) TAMARA (test code = TAMARA) Association of [...] tests). Lab Interpretation Abnormal (test code = 71187-9) [facility] 20:31:55 Test Item Value Reference Range Interpretation Comments MAGNESIUM (test code = 3272655841) 1.8 mg/dL 1.7-2.4 Lab Interpretation (test code = Normal 24047-7) [facility] 20:31:55 Test Item Value Reference Range Interpretation Comments PHOSPHORUS (test code = 5151855806) 5.3 mg/dL 2.5-5 H Lab Interpretation (test code = Abnormal 07553-5) [facility] WITH [id number] 20:21:31 Test Item Value Reference Range Interpretation [...] (test code = 63.5 fL 38.5-51.6 H 90495-1) RDW-CV (test code = 18.6 % 12.1-15.4 H 788-0) PLT (test code = See_Comment L [Automated 777-3) message] The sy stem which generated this result transmitted reference range : 150 - 328 10*3/ ?L. The reference r carroll was not used to interpret this result as normal/abnormal . MPV (test code = 11.6 fL 9.8-13 70976-6) NRBC/100 WBC (test See_Comment [Automat ed code = 0248536814) message] The system which generated this result transmitted reference range : 0.0 - 10.0 /100 WBCs. The refer ence range was not u sed to interpret th is result as normal/abnormal . NRBC x10^3 (test code See_Comment [Auto mated = 3062392152) message] The s ystem which generated this result transmitted reference range : 10*3/?L. The reference range was not used to interpret this result as normal/abnormal . GRAN MAT (NEUT) % 82.0 % (test code = 770-8) IMM GRAN % (test code 0.10 % = 3249264857) LYMPH % (test code = 14.3 % 736-9) MONO % (test code = 3.2 % 5905-5) EOS % (test code = 0.1 % 713-8) BASO % (test code = 0.3 % 706-2) GRAN MAT x10^3(ANC) 7.37 10*3/uL 1.99-6.95 H (test code = 6207545012) IMM GRAN x10^3 (test 0-0.06 code = 1915458510) LYMPH x10^3 (test code 1.29 10*3/uL 1.09-3.23 = 731-0) MONO x10^3 (test code 0.29 10*3/uL 0.36-1.02 L = 742-7) EOS x10^3 (test code = 0.06-0.53 L 711-2) BASO x10^3 (test code 0.03 10*3/uL 0.01-0.09 = 704-7) Lab Interpretation Abnormal (test code = 71136-1) [facility] GLUCOSE (AUTOMATED)2022-04-26 16:53:05 Test Item Value Reference Range Interpretation Comments POCT GLU (test code = 1795414315) 102 mg/dL 70-110 Lab Interpretation (test code = Normal 15804-4) [facility] ([facility]Ag[facility]2022-04-26 16:46:40 Test Item Value Reference Range Interpretation Comments HBsAg Semi-Quantitative (test code = Negative Negative 5195-3) [facility] GLUCOSE (AUTOMATED)2022-04-26 11:53:19 Test Item Value Reference Range Interpretation Comments POCT GLU (test code = 6653341294) 109 mg/dL 70-110 Lab Interpretation (test code = Normal 88082-2) [facility] (NA, K, CL, CO2, GLUCOSE, BUN, CREATININE, CA)2022-04-26 10:31:59 Test Item Value Reference Range Interpretation Comments NA (test code = 141 mmol/L 135-145 8421834514) K (test code = 7.4 mmol/L 3.5-5 HH 4732548771) CL (test code = 106 mmol/L 98-108 5201133172) CO2 TOTAL (test code = 24 mmol/L 23-31 0214943427) AGAP (test code = 2-16 [id number]) BUN (test code = 106 mg/dL 7-23 H [id number]) GLUCOSE (test code = 60 mg/dL 70-110 L [id number]) CREATININE (test code = 10.94 mg/dL 0.6-1.25 H [id number]) CALCIUM (test code = 9.3 mg/dL 8.6-10.6 0908216414) eGFR (test code = mL/min/1.73m2 8393293562) TAMARA (test code = TAMARA) Association of [...] tests). Lab Interpretation Abnormal (test code = 09505-8) [facility] GLUCOSE (AUTOMATED)2022-04-26 09:45:04 Test Item Value Reference Range Interpretation Comments POCT GLU (test code = 8447194077) 70 mg/dL 70-110 Lab Interpretation (test code = Normal 34263-0) [facility]30DA[facility]2022-[facility]-26 09:41:00 Test Item Value Reference Range Interpretation Comments POCT Glu (age>30days) (test code = 70 mg/dL 70-110 3342) Lab Interpretation (test code = Normal 01830-9) [id number] 08:01:27 Test Item Value Reference Interpretation Comments Range TROPONIN I (test 0.276 ng/mL See_Comment H [Automated code = 4284443468) message] The system which generated this result [...] biotin. Lab Interpretation Abnormal (test code = 04271-0) [id number] 07:58:26 Test Item Value Reference Range Interpretation Comments NT-proBNP (test code 04384 pg/mL See_Comment H [Autom ated = 6935014784) message] The system which generated this result transmitted reference range : <=450. The reference range was not used to interpret this result as normal/abnormal . TAMARA (test code = TAMARA) Biotin has been reported to cause a negative bias, interpret results relative to patient's use of biotin. Lab Interpretation Abnormal (test code = 26896-7) [facility] (35313)2022-04-26 07:57:26 Test Item Value Reference Range Interpretation Comments NA (test code = 138 mmol/L 135-145 6508347624) K (test code = 8.3 mmol/L 3.5-5 HH 8667387924) CL (test code = 104 mmol/L 98-108 9535705339) CO2 TOTAL (test code = 24 mmol/L 23-31 7835818624) AGAP (test code = 2-16 2177840131) BUN (test code = 107 mg/dL 7-23 H 0661306364) GLUCOSE (test code = 100 mg/dL 70-110 0797358782) CREATININE (test code = 10.87 mg/dL 0.6-1.25 H 7422100816) TOTAL BILI (test code = 0.6 mg/dL 0.1-1.0 7576533734) CALCIUM (test code = 9.4 mg/dL 8.6-10.6 7534672555) T PROTEIN (test code = 7.2 g/dL 6.3-8.2 0111915351) ALBUMIN (test code = 4.0 g/dL 3.5-5 4994794099) ALK PHOS (test code = 66 U/L 34-122 6122252755) ALTv (test code = 14 U/L 5-50 2-6) AST(SGOT) (test code = 18 U/L 13-40 5755775543) eGFR (test code = mL/min/1.73m2 7690205114) TAMARA (test code = TAMARA) Association of [...] tests). Lab Interpretation Abnormal (test code = 16041-7) [facility] GLUCOSE (AUTOMATED)2022-04-26 07:50:29 Test Item Value Reference Range Interpretation Comments POCT GLU (test code = 4871294393) 145 mg/dL 70-110 H Lab Interpretation (test code = Abnormal 21390-3) [facility] [id number] 07:49:24 Test Item Value Reference Range Interpretation Comments LIPASE (test code = 1675259892) 143 U/L 0-220 Lab Interpretation (test code = Normal 02141-0) [facility] GLUCOSE(AGE >30DAYS)2022-04-26 07:47:00 Test Item Value Reference Range Interpretation Comments POCT Glu (age>30days) (test code = 145 mg/dL 70-110 A 3342) Lab Interpretation (test code = Abnormal 07687-6) [facility] [id number] 07:27:06 Test Item Value Reference Range Interpretation [...] (test code = 63.5 fL 38.5-51.6 H 71435-7) RDW-CV (test code = 18.7 % 12.1-15.4 H 788-0) PLT (test code = See_Comment L [Automated 777-3) message] The sy stem which generated this result transmitted reference range : 150 - 328 10*3/ ?L. The reference r carroll was not used to interpret this result as normal/abnormal . MPV (test code = 12.7 fL 9.8-13 23496-7) NRBC/100 WBC (test See_Comment [Automat ed code = 2625286870) message] The system which generated this result transmitted reference range : 0.0 - 10.0 /100 WBCs. The refer ence range was not u sed to interpret th is result as normal/abnormal . NRBC x10^3 (test code See_Comment [Auto mated = 6471486618) message] The s ystem which generated this result transmitted reference range : 10*3/?L. The reference range was not used to interpret this result as normal/abnormal . GRAN MAT (NEUT) % 67.2 % (test code = 770-8) IMM GRAN % (test code 0.50 % = 9505374382) LYMPH % (test code = 20.7 % 736-9) MONO % (test code = 6.0 % 5905-5) EOS % (test code = 5.1 % 713-8) BASO % (test code = 0.5 % 706-2) GRAN MAT x10^3(ANC) 5.93 10*3/uL 1.99-6.95 (test code = 9503891803) IMM GRAN x10^3 (test 0.04 10*3/uL 0-0.06 code = 3498628265) LYMPH x10^3 (test code 1.82 10*3/uL 1.09-3.23 = 731-0) MONO x10^3 (test code 0.53 10*3/uL 0.36-1.02 = 742-7) EOS x10^3 (test code = 0.45 10*3/uL 0.06-0.53 711-2) BASO x10^3 (test code 0.04 10*3/uL 0.01-0.09 = 704-7) Lab Interpretation Abnormal (test code = 47230-3) [facility]/O [id number] 19:03:28 Right posterior parietal scalp soft tissue [...] noted nonspecific enlargement of the right subman dibulargland.[facility] Cervical Spine W/O Contrast 2020-05-20 19:03:28 [...] malalignmentIncidentally noted nonspecific enlargement of the right submandibulargland.[facility]"
[2022-12-16 17:09] LABS: Albumin 3.1 g/dL (3.4-5.0)
[2022-12-16 17:12] LABS: Potassium 3.6 mEq/L (3.5-5.1)
[2022-12-16 17:14] LABS: Hematocrit 39.7 % (39.6-49.0); Lymphocytes % 17.8 % (15.3-44.8); MCV 91.4 fL (80-100); MPV 10.5 fL (7.6-11.3); RBC Red Blood Cell Count 4.34 M/uL (4.33-5.43)
[2022-12-16 17:17] LABS: Blood Morphology Comment NOT SEEN (NOT SEEN); Platelet Estimate DECR; White Blood Cell Scan OK (OK)
[2022-12-16] MEDS ORDERED: MORPHINE 2 MG/ML SYR ONE (17:20)
[2022-12-16] MEDS ORDERED: ONDANSETRON 4 MG/2 ML VIAL ONE (17:20)
[2022-12-16] MEDS ORDERED: D10W 250 ML IV ONE (17:34)
--- NOTE | 2022-12-16 19:15 | RAD REPORT ---
EXAM DESCRIPTION: CT - Stone Protocol - 12/16/2022 6:25 pm CLINICAL HISTORY: FLANK PAIN COMPARISON: Abdomen Pelvis Wo Contrast dated 08/06/2021; CT ABDOMEN PELVIS WO CONTRAST dated 5; CT ABD PELVIS W WO CONTRAST dated 09/04/2002 TECHNIQUE: Thin cut axial CT imaging of the abdomen and pelvis was performed without IV contrast. Mu ltiplanar reformats were generated and reviewed. All CT scans are performed using dose optimization technique as appropriate and may include automated exposure control or mA/KV adjustment according to patient size. FINDINGS: Small layering right pleural effusion. Moderate cardiomegaly. The liver, spleen, and pancreas show no suspicious findings. Gallbladder was surgically removed. Bili chad tree without suspicious finding. Symmetric renal contour, with bilateral atrophy. No suspicious parenchymal findings within limits of noncontrast technique. No evidence of radiopaque calculi or hydroureteronephrosis. No dilated bowel loops or bowel wall thickening. No free air, free fluid or inflammatory stranding. N o hernia, mass or bulky lymphadenopathy. The urinary bladder is suboptimally distended, without signi ficant finding. No suspicious bony findings. Body wall edema. Soft tissue calcifications in both flanks, may relate to injection granulomas. IMPRESSION: Small layering right pleural effusion. Moderate cardiomegaly. No evidence of radiopaque calculi or hydroureteronephrosis. Body wall edema.
--- NOTE | 2022-12-16 19:22 | RAD REPORT ---
EXAM DESCRIPTION: CT - Thorax Wo Con - 12/16/2022 6:37 pm CLINICAL HISTORY: R/O PLEURAL EFFUSION COMPARISON: Thorax Wo Con dated 10/29/2022; Thorax Wo Con dated 10/24/2022; Chest Abd Pelvis Wo Con da terrance 10/14/2022; THORAX WO CONTRAST dated 12/07/2014Thorax Wo Con dated 10/29/2022; Thorax Wo Con dated ; Chest Abd Pelvis Wo Con dated 10/14/2022; THORAX WO CONTRAST dated 12/07/2014; Chest Single Vie w dated 10/29/2022 TECHNIQUE: Axial thin cut images of the chest were obtained without IV contrast. Multiplanar reforma ts were generated and reviewed. All CT scans are performed using dose optimization technique as appropriate and may include automated exposure control or mA/KV adjustment according to patient size. FINDINGS: No mass or infiltrate in the lung parenchyma. No pleural thickening. Small right pleural e ffusion. No pneumothorax. No abnormal mediastinal or hilar masses or lymphadenopathy seen. Mediastinal and left hilar calcified lymph nodes. No significant aortic or pulmonary artery findings. Assessment is limited in the absenc e of IV contrast. Moderate cardiomegaly. No chest wall mass or abnormal axillary lymphadenopathy. Evaluation of the solid abdominal structures reveals no suspicious findings. IMPRESSION: Small right pleural effusion. Moderate cardiomegaly.
--- NOTE | 2022-12-16 20:33 | ER ---
Nurse's Notes [facility] Name: Jozef Carbajal Age: 77 yrs Sex: Male : 1945 Arrival Date: 12/16/2022 Time: 14:34 Bed 7 Private MD: Diagnosis: Abdominal pain, unspecified;Pleural effusion, not elsewhere classified Presentation: 12/16 15:37 Chief complaint: Spouse and/or significant other states: Right abdominal pain on/off nj1 for about 2 months. Have been here 6-7 weeks ago for it, was feeling better until this morning before dialysis. Coronavirus screen: Vaccine status: Patient reports receiving the 2nd dose of the covid vaccine. Ebola Screen: Patient denies travel to an Ebola-affected area in the 21 days before illness onset. Initial Sepsis Screen: Does the patient meet any 2 criteria? No. Patient's initial sepsis screen is negative. Does the patient have a suspected source of infection? No. Patient's initial sepsis screen is negative. Risk Assessment: Do you want to hurt yourself or someone else? Patient reports no desire to harm self or others. Onset of symptoms was December 16, 2022. 15:37 Method Of Arrival: Ambulatory [facility] 15:37 Acuity: CARLOS MANUEL 3 nj1 Historical: - Allergies: 15:42 No Known Allergies; nj1 - PMHx: 15:42 Anemia; Diabetes - NIDDM; Hypertension; Hypothyroidism; Lupus; Renal Disease; CKD; nj1 - PSHx: 15:42 Left arm dialysis fistula; Cholecystectomy; nj1 - Immunization history:: Client reports receiving the 2nd dose of the Covid vaccine. - Social history:: Smoking status: Patient denies any tobacco usage or history of. Screenin:37 [facility] ED Fall Risk Assessment (Adult) History of falling in the last 3 months, kc6 including since admission No falls in past 3 months (0 pts) Confusion or Disorientation No (0 pts) Intoxicated or Sedated No (0 pts) Impaired Gait Yes (1 pt) Mobility Assist Device Used Yes (1 pt) Altered Elimination No (0 pt) Score/Fall Risk Level 0 - 2 = Low Risk Oriented to surroundings, Maintained a safe environment, Educated pt \T\ family on fall prevention, incl call for assistance when getting out of bed, Assessed \T\ reinforced patient's understanding of fall precautions, Hourly rounding (assess needs \T\ fall precautionary measures) done. Abuse screen: Denies threats or abuse. Denies injuries from another. Nutritional screening: No deficits noted. Tuberculosis screening: No symptoms or risk factors identified. Assessment: 16:37 General: Appears in no apparent distress. comfortable, Behavior is calm, cooperative, kc6 appropriate for age. Pain: Complains of pain in rigth flank Pain does not radiate. Pain currently is 5 out of 10 on a pain scale. Neuro: Angelo Agitation-Sedation Scale (RASS): 0 - Alert and Calm Level of Consciousness is awake, alert, obeys commands, Oriented to person, place, time, situation, Appropriate for age. Cardiovascular: Capillary refill < 3 seconds. Respiratory: Airway is patent Trachea midline Respiratory effort is even, unlabored, Respiratory pattern is regular, symmetrical. GI: No signs and/or symptoms were reported involving the gastrointestinal system. : No signs and/or symptoms were reported regarding the genitourinary system. EENT: No signs and/or symptoms were reported regarding the EENT system. Derm: No signs and/or symptoms reported regarding the dermatologic system. Skin is intact, Skin is pink, warm \T\ dry. Musculoskeletal: No signs and/or symptoms reported regarding the musculoskeletal system. Circulation, motion, and sensation intact. Capillary refill < 3 seconds, Range of motion: intact in all extremities. 17:35 Reassessment: Patient appears in no apparent distress at this time. No changes from kc6 previously documented assessment. Patient and/or family updated on plan of care and expected duration. Pain level reassessed. Patient is alert, oriented x 3, equal unlabored respirations, skin warm/dry/pink. 18:35 Reassessment: Patient appears in no apparent distress at this time. No changes from kc6 previously documented assessment. Patient and/or family updated on plan of care and expected duration. Pain level reassessed. Patient is alert, oriented x 3, equal unlabored respirations, skin warm/dry/pink. 19:46 Reassessment: Patient and/or family updated on plan of care and expected duration. Pain aa9 level reassessed. Patient is alert, oriented x 3, equal unlabored respirations, skin warm/dry/pink. Pain: Complains of pain in right flank Pain currently is 5 out of 10 on a pain scale. Neuro: Level of Consciousness is awake, alert, obeys commands, Oriented to person, place, time, situation. Respiratory: Airway is patent Respiratory effort is even, unlabored. 20:40 Reassessment: Patient appears in no apparent distress at this time. Patient and/or aa9 family updated on plan of care and expected duration. Pain level reassessed. Patient is alert, oriented x 3, equal unlabored respirations, skin warm/dry/pink. 21:01 Reassessment: Patient appears in no apparent distress at this time. Patient and/or aa9 family updated on plan of care and expected duration. Pain level reassessed. Patient is alert, oriented x 3, equal unlabored respirations, skin warm/dry/pink. Patient states feeling better. Patient states symptoms have improved. Vital Signs: 15:37 BP 156 / 56; Pulse 72; Resp 18; Temp 97.7(TE); Pulse Ox 100% ; Weight 86.18 kg; Height nj1 6 ft. 0 in. ; Pain 5/10; 17:04 BP 131 / 51; Pulse 77; Resp 19 S; Pulse Ox 100% on R/A; kc6 18:36 BP 130 / 39; Pulse 75; Resp 18 S; Pulse Ox 99% on R/A; kc6 20:30 BP 133 / 47; Pulse 82; Resp 17 S; Temp 98.5(O); Pulse Ox 97% on R/A; aa9 15:37 Body Mass Index 25.77 (86.18 kg, 182.88 cm) nj1 15:37 Pain Scale: Adult tn1 ED Course: 14:43 Patient arrived in ED. kj1 15:14 Blaise Sylvester PA is PHCP. cp 15:14 Blaise Chung MD is Attending Physician. cp 15:42 Triage completed. nj1 15:43 Arm band placed on left wrist. nj1 16:17 Inserted saline lock: 22 gauge in right antecubital area, using aseptic technique. iw 16:31 Rubia Lopez, VAMSHI is Primary Nurse. kc6 16:38 Patient has correct armband on for positive identification. Bed in low position. Call kc6 light in reach. Side rails up X2. Adult w/ patient. 18:27 CT Stone Protocol In Process Unspecified. EDMS 18:38 Thorax Wo Con In Process Unspecified. EDMS 20:32 Duane Ward MD is Referral Physician. cp 20:40 Diet: Patient given snack. Patient given water. Tolerated well. aa9 20:40 No provider procedures requiring assistance completed. aa9 21:01 IV discontinued, intact, bleeding controlled, No redness/swelling at site. Pressure aa9 dressing applied. Administered Medications: 17:31 Not Given (not availablee): D50W IVP 50 ml IVP once; (1 amp) ll1 17:34 Drug: morphine IVP or IV 2 mg Route: IVP; Infused Over: 4 mins; Site: right antecubital;kc6 18:51 Follow up: Response: No adverse reaction; Pain is decreased; RASS: Alert and Calm (0) kc6 17:34 Drug: Ondansetron IVP 4 mg Route: IVP; Site: right antecubital; kc6 18:52 Follow up: Response: No adverse reaction kc6 17:34 Drug: D10 in Water IVP 250 ml Route: IVP; Site: right antecubital; kc6 20:40 Drug: fentaNYL (PF) IVP 25 mcg Route: IVP; Site: right antecubital; aa9 Medication: 21:01 VIS not applicable for this client. aa9 Outcome: 20:32 Discharge ordered by . cp 20:43 Condition: stable aa9 21:00 Discharged to home ambulatory, with family. aa9 21:00 Discharge instructions given to patient, Instructed on discharge instructions, follow up and referral plans. Demonstrated understanding of instructions, follow-up care. 21:01 Patient left the ED. aa9 Signatures: Dispatcher [employer] EDNC Merline Cotton RN RN iw Page, Corey, PA PA cp Jackson, Kandis kj1 Lis Saldaña RN RN aa9 Rubia Lopez RN RN kc6 Katty Pacheco RN RN nj1 Lamine Sosa RN ll1
--- NOTE | 2022-12-16 20:33 | EDPHYS ---
Physician Documentation [facility] Name: Jozef Carbajal Age: 77 yrs Sex: Male : 1945 Arrival Date: 12/16/2022 Time: 14:34 Bed 7 Private MD: ED Physician Blaise Chung HPI: 12/16 15:40 This 77 yrs old Black Male presents to ER via Ambulatory with complaints of Flank Pain. cp 15:40 The patient complains of pain in the right flank. cp 15:40 The pain does not radiate. cp 15:40 Onset: The symptoms/episode began/occurred 2 month(s) ago, intermittent, pain returned cp this morning. Associated signs and symptoms: Pertinent negatives: diarrhea, fever, pain radiating to the lower extremities, vomiting. Severity of pain: in the emergency department the pain is unchanged despite home interventions. The patient has experienced similar episodes in the past, multiple times, reports patient has referral to see JULIANE Ridley. Historical: - Allergies: 15:42 No Known Allergies; nj1 - PMHx: 15:42 Anemia; Diabetes - NIDDM; Hypertension; Hypothyroidism; Lupus; Renal Disease; CKD; nj1 - PSHx: 15:42 Left arm dialysis fistula; Cholecystectomy; nj1 - Immunization history:: Client reports receiving the 2nd dose of the Covid vaccine. - Social history:: Smoking status: Patient denies any tobacco usage or history of. ROS: 15:45 Constitutional: Negative for body aches, chills, fever, poor PO intake. cp 15:45 Eyes: Negative for injury, pain, redness, and discharge. cp 15:45 ENT: Negative for drainage from ear(s), ear pain, sore throat, difficulty swallowing, difficulty handling secretions. 15:45 Neck: Negative for pain with movement, pain at rest, stiffness. 15:45 Cardiovascular: Negative for chest pain, palpitations. 15:45 Respiratory: Negative for cough, shortness of breath, wheezing. 15:45 Abdomen/GI: Positive for abdominal pain, of the anterior aspect of right lateral abdomen, posterior aspect of right lateral abdomen and right upper quadrant, Negative for vomiting, diarrhea, constipation. 15:45 : Negative for hematuria, testicular pain 15:45 Neuro: Negative for dizziness, headache, numbness, syncope, weakness. 15:45 All other systems are negative. Exam: 15:50 Constitutional: The patient appears in no acute distress, alert, awake, cp non-diaphoretic, non-toxic, well developed, well nourished, uncomfortable. 15:50 Head/Face: Normocephalic, atraumatic. cp 15:50 Eyes: Periorbital structures: appear normal, Conjunctiva: normal, no exudate, no injection, Sclera: no appreciated abnormality, Lids and lashes: appear normal, bilaterally. 15:50 ENT: External ear(s): are unremarkable, Nose: is normal, Mouth: Lips: moist, Oral mucosa: pink and intact, moist, Posterior pharynx: is normal, airway is patent, no erythema, no exudate. 15:50 Neck: ROM/movement: is normal, is supple, without pain, no range of motions limitations. 15:50 Chest/axilla: Inspection: normal, Palpation: is normal, no crepitus, no tenderness. 15:50 Cardiovascular: Rate: normal, Edema: is not appreciated, JVD: is not appreciated. 15:50 Respiratory: the patient does not display signs of respiratory distress, Respirations: normal, no use of accessory muscles, no retractions, labored breathing, is not present, Breath sounds: are clear throughout, no decreased breath sounds, no stridor, no wheezing. 15:50 Abdomen/GI: Inspection: abdomen appears normal, Bowel sounds: active, all quadrants, Palpation: soft, in all quadrants, moderate abdominal tenderness, in the anterior aspect of right lateral abdomen, posterior aspect of right lateral abdomen and right upper quadrant, rebound tenderness, is not appreciated, involuntary guarding, is not appreciated. 15:50 Skin: cellulitis, is not appreciated, no rash present. 15:50 Neuro: Orientation: to person, place \T\ time. Mentation: is normal, Motor: moves all fours, strength is normal. Vital Signs: 15:37 BP 156 / 56; Pulse 72; Resp 18; Temp 97.7(TE); Pulse Ox 100% ; Weight 86.18 kg; Height nj1 6 ft. 0 in. ; Pain 5/10; 17:04 BP 131 / 51; Pulse 77; Resp 19 S; Pulse Ox 100% on R/A; kc6 18:36 BP 130 / 39; Pulse 75; Resp 18 S; Pulse Ox 99% on R/A; kc6 20:30 BP 133 / 47; Pulse 82; Resp 17 S; Temp 98.5(O); Pulse Ox 97% on R/A; aa9 15:37 Body Mass Index 25.77 (86.18 kg, 182.88 cm) nj1 15:37 Pain Scale: Adult nj1 MDM: 15:45 Patient medically screened. cp 17:00 Differential diagnosis: nephrolithiasis, pyelonephritis, UTI, diverticulitis, cp pancreatitis. 20:31 Data reviewed: vital signs, nurses notes, lab test result(s), radiologic studies, CT cp scan. 20:31 Consideration of Admission/Observation Escalation of care including cp admission/observation considered. I considered the following discharge prescriptions or medication management in the emergency department Medications were administered in the Emergency Department. See MAR. Historians other than the Patient: Spouse/Significant Other: provides HPI. Care significantly affected by the following chronic conditions: Chronic Kidney Disease. 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 Response to treatment: the patient's symptoms have markedly improved after treatment. Special discussion: Based on the patient's Hx, exam, and Dx evaluation, there is no indication for emergent surgery or inpatient Tx. It is understood by the patient/guardian that if the Sx's persist or worsen they need to return immediately for re-evaluation. 12/16 15:39 Order name: CBC with Diff; Complete Time: 17:27 cp 12/16 20:10 Interpretation: Normal except: HGB 12.6; MCHC 31.7; PLT 60; RDW 19.6. cp 12/16 15:39 Order name: CMP; Complete Time: 17:27 cp 12/16 17:29 Interpretation: Normal except: NA 133; BUN 20; CRE 3.71; GFR 16; CA 8.3; ALB 3.1; GLOB cp 4.9. 12/16 15:39 Order name: Lipase; Complete Time: 17:27 cp 12/16 20:11 Interpretation: Reviewed. cp 12/16 17:18 Order name: CBC Smear Scan; Complete Time: 17:27 EDMS 12/16 17:45 Order name: Glucose, Ancillary Testing; Complete Time: 18:39 EDMS 12/16 18:40 Interpretation: Reviewed. 12/16 19:12 Order name: Glucose, Ancillary Testing; Complete Time: 20:09 EDMS 12/16 20:12 Interpretation: Reviewed. 12/16 17:27 Order name: CT Stone Protocol; Complete Time: 20:09 12/16 20:11 Interpretation: Report reviewed. 12/16 18:26 Order name: Thorax Wo Con; Complete Time: 20:09 EDMS 12/16 20:11 Interpretation: Report reviewed. 12/16 15:39 Order name: IV Saline Lock; Complete Time: 16:09 12/16 15:39 Order name: Labs collected and sent; Complete Time: 16:09 12/16 16:19 Order name: Labs - recollect needed: recollect lavender top; Complete Time: 17:01 12/16 20:26 Order name: PO challenge; Complete Time: 20:40 cp Administered Medications: 17:31 Not Given (not availablee): D50W IVP 50 ml IVP once; (1 amp) ll1 17:34 Drug: morphine IVP or IV 2 mg Route: IVP; Infused Over: 4 mins; Site: right antecubital;kc6 18:51 Follow up: Response: No adverse reaction; Pain is decreased; RASS: Alert and Calm (0) kc6 17:34 Drug: Ondansetron IVP 4 mg Route: IVP; Site: right antecubital; kc6 18:52 Follow up: Response: No adverse reaction 6 17:34 Drug: D10 in Water IVP 250 ml Route: IVP; Site: right antecubital; kc6 20:40 Drug: fentaNYL (PF) IVP 25 mcg Route: IVP; Site: right antecubital; aa9 Disposition Summary: 12/16/22 20:32 Discharge Ordered Location: Home cp Problem: new cp Symptoms: have improved cp Condition: Stable cp Diagnosis - Abdominal pain, unspecified cp - Pleural effusion, not elsewhere classified cp Followup: cp - With: Duane Ward MD - When: 1 - 2 days - Reason: Recheck today's complaints Discharge Instructions: - Discharge Summary Sheet cp - Abdominal Pain, Adult cp - Pleural Effusion cp Forms: - Medication Reconciliation Form cp - Thank You Letter cp - Antibiotic Education cp - Prescription Opioid Use cp Signatures: Dispatcher [employer] EDMS Kassy Clinton Corey, PA PA cp Lewis, Lynsay, RN RN ll1 Lis Saldaña RN RN aa9 Rubia Lopez RN RN kc6 Katty Pacheco RN RN nj1 Corrections: (The following items were deleted from the chart) 18:27 15:39 Urinalysis+U.LAB.BRZ ordered. EDMS EDMS
[2022-12-16] MEDS ORDERED: FENTANYL CITR 100 MCG/2 ML ONE (20:43)
[2022-12-16 21:44] VITALS: BP 133/47; TEMP 98.5; O2SAT 97
== END 2022-12-16 21:01 | disposition home or self-care (01) ==
LOC: ER 14:34
DX: R10.9 Unspecified abdominal pain (principal); J90 Pleural effusion, not elsewhere classified; E11.22 Type 2 diabetes mellitus with diabetic chronic kidney disease; I12.0 Hypertensive chronic kidney disease with stage 5 chronic kidney disease or end stage renal disease; N18.6 End stage renal disease; Z99.2 Dependence on renal dialysis
CPT/HCPCS: 85025; 36415; 82947 ×2; 83690; 80053; 71250; 76377; 74176; J3010; J2270; J2405

== ENCOUNTER 2023-01-08 19:27 | Inpatient (IN) | payer OTHER ==
--- OUTSIDE RECORDS SUMMARY | 2023-01-08 19:38 | XMS REPORT | Continuity of Care Document ---
:1945 Author Organization [facility] t Address [address] [place] [address]. [address] [place] [address] Care Team Providers Name Role Phone Rasheeda POLLACK, Theodore Kirkland Primary Care Physician AALIYAH SORTO Attending Clinician Unavailable Cuca Trinh MD Attending Clinician Aaliyah Sorto MD Attending Clinician Rosaline Armstrong RN Attending Clinician Unavailable RANDEE STEVE Attending Clinician Unavailable Macario Diaz MD Attending Clinician Randee Steve MD Attending Clinician RIANNA GOMEZ Attending Clinician Unavailable Rianna Reyes Attending Clinician IVANIA MEHTA Attending Clinician Unavailable Ivania Mehta MD Attending Clinician Quyen Noel RN Attending Clinician CARLTON SCHNEIDER Attending Clinician Unavailable Carlton Schneider MD Attending Clinician STEVE REYES Attending Clinician Unavailable Gianluca Alba MD Attending Clinician Sampson Sparks MD Attending Clinician TeqwvaishaliSteve lindsay DO Attending Clinician ZURDO LIVINGSTON Attending Clinician Unavailable Gina oCtton DO Attending Clinician ARABELLA LEDESMA Attending Clinician Unavailable CUCA TRINH Admitting Clinician Unavailable RANDEE STEVE Admitting Clinician Unavailable Randee Steve MD Admitting Clinician RIANNA GOMEZ Admitting Clinician Unavailable IVANIA MEHTA Admitting Clinician Unavailable CARLTON SCHNEIDER Admitting Clinician Unavailable Carlton Schneider MD Admitting Clinician SAMPSON SPARKS Admitting Clinician Unavailable Sampson Sparks MD Admitting Clinician ARABELLA LEDESMA Admitting Clinician Unavailable Payers Payer Name Policy Type Policy Number Effective Date Expiration Date S yesy MEDICARE PART A [id number] 1996 \\T\\ B 00:00:00 [employer] INDEMNITY [id number] 2017 00:00:00 [employer] MANAGED [id number] 2022 MEDICARE PPO-YOLI 00:00:00 Problems Condition Condition Condition Status Onset Resolution Last Treating Co mments Source Name Details Category Date Date Treatment Clinician Date Right Right Disease Active 2022- Univers lower lower 3-10 ity of quadrant quadrant 00:00: [place] abdominal abdominal 00 Medi jimenez pain pain Branch FUO (fever FUO (fever Disease Active 2021-08 U nivers of unknown of unknown 2-12 it y of origin) origin) 00:00: [place] [facility] Aortic Aortic Disease Active Univers stenosis stenosis 9-30 ity of 00:00: [place] [facility] Bradycardi Bradycardi Disease Active 2021-0 U nivers a a 9-25 ity of 00:00: [place] [facility] ESRD ESRD Disease Active 2021- Univers needing needing 9-25 ity of dialysis dialysis 00:00: [place] [facility] 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-29 it y of hyroidism hyroidism 00:[place] Vitamin D Vitamin D Disease Active Uni vers deficiency deficiency 03-29 it y of , , 00:00: [place] unspecifie unspecifie 00 Me dical d d Branch Allergic Allergic Disease Active 2019 Unive rs rhinitis rhinitis 03-29 ity of due to due to 00:00: [place] pollen pollen 00 Medical Branch 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 2019 Uni vers chronic chronic 03-29 ity of kidney kidney 00:00: [place] disease disease 00 Medical Branch Bilateral Bilateral Disease Active 2019 Uni vers knee pain knee pain 03-29 ity of 00:00: [place] [facility] Chronic Chronic Disease Active 2019- Univers low back low back 03-29 ity of pain pain 00:00: [place] [facility] Hyperkalem Hyperkalem Disease Active 2019 U nivers ia ia 03-29 ity of 00:00: [place] [facility] Hypertensi Hypertensi Disease Active 2019 U nivers ve heart ve heart 03-29 ity of and and 00:00: [place] chronic chronic 00 Medical kidney kidney Branch disease disease stage 5 stage 5 Iron Iron Disease Active Univers deficiency deficiency 03-29 it y of anemia anemia 00:00: [place] [facility] Lower Lower Disease Active Univers urinary urinary 03-29 ity of tract tract 00:00: [place] symptoms symptoms 00 Medica l due to due to Branch benign benign prostatic prostatic hyperplasi hyperplasi a a 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 ICD10 Diagnosis Term Inventory Analyst Utility Lupus Lupus Disease Active 2013-08 Univers nephritis nephritis 08-27 ity of 00:00: [place] [facility] Fever Fever Disease Active 2013-08 Univers 08-27 ity of 00:00: [place] [facility] DM DM Disease Active 2013-08 Univers (diabetes (diabetes 08-27 ity of mellitus) mellitus) 00:00[place] HLD HLD Disease Active 2013-08 Univers (hyperlipi (hyperlipi 08-27 it y of demia) demia) 00:00: [place] [facility] Weakness Weakness Disease Active 2013-08 Unive rs 08-27 ity of 00:00: [place] [facility] Systemic Systemic Disease Active Last [...] Active Univers ALLERGIE Class ity of S [place] [facility] Family History Family Member Diagnosis Comments Start Date Stop Date Source Natural sister No Known Problems Met [facility] sister Lupus [facility] brother Lupus [facility] brother [facility] Natural father Hypertension [facility] mother Diabetes [facility] Social History Social Habit Start Date Stop Date Quantity Comments Source History of tobacco Passive smoker Un iversity of use [place] [facility] History SDOH Social Unive rsity of Connections [facility] Med ical Together Branch History SDOH Social Unive rsity of Connections [facility] Medical Branch History SDOH Social Unive rsity of Connections [place] [facility] Membership Branch History SDOH Social Unive rsity of Connections [place] [facility] Meetings Branch Gender identity [facility] Sexual orientation Method is Hospital Exposure to 2022-12-18 2022-12-28 Not sure University of SARS-CoV-2 (event) 00:00:00 20:32:00 [place] [facility] History SDOH 2022-07-14 2022-07-14 1 University o f Alcohol Frequency 00:00:00 00:00:00 [place] M edical Branch History SDOH 2022-07-14 2022-07-14 0 University o f Alcohol Std Drinks 00:00:00 00:00:00 [place] [facility] History SDOH 2022-07-14 2022-07-14 1 University o f Alcohol Binge 00:00:00 00:00:00 [place] Medic al Branch History SDOH Social 2022-07-14 2022-07-14 1 Unive rsity of Connections Phone 00:00:00 00:00:00 [place] M edical Branch History SDOH Social 2022-07-14 2022-07-14 3 Unive rsity of Connections Living 00:00:00 00:00:00 [place] [facility] History SDOH 2022-07-14 2022-07-14 0 University o f Physical Activity 00:00:00 00:00:00 [facility] edical DPW Branch History [facility] 2022-07-14 2022-07-14 0 University o f Physical Activity 00:00:00 00:00:00 [facility] edical MPS Branch History SDNE 2022-07-14 2022-07-14 5 University o f Financial 00:00:00 00:00:00 [place] [facility] History SDNE Food 2022-07-14 2022-07-14 1 Univers ity of Worry 00:00:00 00:00:00 [place] [facility] History SDNE Food 2022-07-14 2022-07-14 1 Univers ity of Scarcity 00:00:00 00:00:00 [place] [facility] History [facility] 2022-07-14 2022-07-14 2 University o f Transport Med 00:00:00 00:00:00 [place] Medic al Branch History [facility] 2022-07-14 2022-07-14 2 University o f Transport Non-Med 00:00:00 00:00:00 [facility] Tobacco use and 2022-07-13 2022-07-13 Smokeless Universit y of exposure 00:00:00 00:00:00 tobacco [facility] d[facility] Branch Education 2022-04-26 2022-04-26 21 University of 00:00:00 00:00:00 [facility] [place] [facility] Alcohol intake 2019-08-08 2019-08-08 Current [employer]ast[employer]arian 00:00:00 00:00:00 non-drinker of Hospital alcohol (finding) History of Social 2019-07-31 2019-07-[address] function 00:00:00 00:00:00 Hospital Sex Ass[birth year] At [birth year] Rast[facility]arian 00:00:00 00:00:00 Hospital Smoking Status Start Date Stop Date Source Never smoked tobacco [facility] Medications Ordered Filled Start Stop Current Ordering Indication Dosage Frequency Signature Comments Components Source Medication Medication Date Date Medication? Clinician (SIG) Name Name iopamidol 3- No [id number] 75mL 75 mL, U nivers (ISOVUE 5-30 05-30 Intravenou ity o f 370-500 mL) 06:00: 05:06 s, ONCE, 1 [place] injection 00 :00 dose, On Medica l 75 mL e Branch 12/29/22 at 0100, Routine morpHINE (4 2022- No 4mg 4 mg, Slow Univers mg/mL) 5-30 05-30 IV Push, ity of injection 4 04:15: 04:07 ONCE, 1 [place] mg 00 :00 dose, On Medical [facility] 12/28/22 at 2315, STAT NaCl 0.9% 2022- No 500mL at 999 Univ ers (NS) bolus 5-30 05-30 mL/hr, 500 it y of infusion 03:15: 04:13 mL, IV [place] 500 mL 00 :00 Infusion, Medical ONCE, 1 [place] dose, On [facility] 12/28/22 at 2215, ANGELA benzonatate Yes [id number] 200mg Take 1 Univers 200 mg 5-30 capsule by ity of capsule 00:00: mouth 3 00 (three) Medical times [place] daily as needed for Cough. lidocaine 5 Yes [id number] 1{patch Apply 1 Univers % (700 3-13 105 } Patch to ity of mg/patch) 00:00: area(s[place] in [place] patch 00 the Medical morning. Branch lidocaine 5 Yes [id number] 1{patch Apply 1 Univers % (700 3-13 105 } Patch to ity of mg/patch) 00:00: area(s[place] in [place] patch 00 the Medical morning. Branch lidocaine 5 Yes [id number] 1{patch Apply 1 Univers % (700 3-13 105 } Patch to ity of mg/patch) 00:00: area(s) in [place] patch 00 the Medical morning. Branch HYDROcodone 2022-0 2022- Yes 1{tbl} 1 tablet, Univers -acetaminop 3-12 03-14 Oral, ity of hen (NORCO 16:58: 16:57 Q6HPRN, [place] 5) 5-325 mg 10 :10 Starting Medi jimenez tablet 1 on Sun Branch tablet 10/11/22 at 1158, Until Wed10/13/22 at 1157, Routine, Pain (scale 4-6), Pain (scale 7-10) atorvastati 2023-0 Yes [id number] 20mg Take 0.5 Univers n 40 mg 3-12 tablets by ity of tablet 15:14: mouth [place] 33 every Medical evening. Branch aspirin 81 2022-0 Yes 81mg Take 1 Unive rs mg chewable 3-12 tablet by ity of tablet 15:14: mouth in [place] [address] the Medical morning. Branch foLIC acid 3-0 Yes 1mg Take 1 Unive rs 1 mg tablet 3-12 tablet by ity of 15:14: mouth in [place] [address] the Medical morning. Branch allopurinoL 3-0 Yes 100mg Take 1 Uni vers 100 mg 3-12 tablet by ity of tablet 15:14: mouth in [place] [address] the Medical morning. Branch ferric 3-0 Yes 210mg Take 210 Univer s citrate [...] ity o f tablet 15:14: mouth [place] every Medical morning. Branch atorvastati 2022-0 Yes [id number] 20mg Take 0.5 Univers n 40 mg 3-12 tablets by ity of tablet 15:14: mouth [place] 33 every Medical evening. Branch aspirin 81 2022-0 Yes 81mg Take 1 Unive rs mg chewable 3-12 tablet by ity of tablet 15:14: mouth in [place] [address] the Medical morning. Branch foLIC acid 2022-0 Yes 1mg Take 1 Unive rs 1 mg tablet 3-12 tablet by ity of 15:14: mouth in [place] [address] the Medical morning. Branch allopurinoL 3-0 Yes 100mg Take 1 Uni vers 100 mg 3-12 tablet by ity of tablet 15:14: mouth in [place] [address] the Medical morning. Branch ferric 3-0 Yes 210mg Take 210 Univer s citrate [...] by ity o f tablet 15:14: mouth [place] [address] every Medical morning. Branch atorvastati 2022-0 Yes [id number] 20mg Take 0.5 Univers n 40 mg 3-12 tablets by ity of tablet 15:14: mouth [place] 33 every Medical evening. Branch aspirin 81 2022-0 Yes 81mg Take 1 Unive rs mg chewable 3-12 tablet by ity of tablet 15:14: mouth in [place] [address] the Medical morning. Branch foLIC acid 2022-0 Yes 1mg Take 1 Unive rs 1 mg tablet 3-12 tablet by ity of 15:14: mouth in [place] [address] the Medical morning. Branch allopurinoL 2022-0 Yes 100mg Take 1 Uni vers 100 mg 3-12 tablet by ity of tablet 15:14: mouth in [place] [address] the Medical morning. Branch ferric 2022-0 Yes [...] by ity o f tablet 15:14: mouth [place] [address] every Medical morning. Branch amLODIPine 2022-0 2022- No 5mg Take 0.5 Un mahsa (NORVASC) 3-12 03-12 tablets by ity of 10 mg 13:40: 00:00 mouth in [place] tablet 16 :00 the Medical morning. Branch Take 1/2 tablet once a day doxazosin 4 2022-0 2022- No 2mg Take 0.5 U nivers mg tablet 3-12 -12 tablets by ity of 13:40: 00:00 mouth [place] 16 :00 every Medical evening. [place] Take 1/2 tablet at bedtime benzonatate 2022-0 Yes 100mg 100 mg, Un mahsa (TESSALON 3-12 Oral, ity of PERLES) 04:45: Q8HPRN, [place] capsule 100 33 Starting Medi jimenez mg on Sat Branch 10/10/22 at 2245, Until Discontinu ed, Routine, Cough codeine-gua 2022-0 202- No 5mL 5 mL, Univ ers ifenesin 10-11-12 Oral, ity of (ROBITUSSIN 04:44: 18:32 Q6HPRN, [place] AC) 10-100 47 :07 Starting Medic al mg/5 mL on [facility] Branch oral 10/10/22 at solution 5 2244, mL Until 10/11/22 at 1332, Routine, Cough benzonatate 2022-0 Yes 100mg 100 mg, Un mahsa (TESSALON 3-12 Oral, Q8H, ity of PERLES) 04:00: First dose [place] capsule 100 00 on Sat Medica l mg 10/10/22 at Branch 2200, Until Discontinu ed, Routine pantoprazol 2022-0 Yes 20mg 20 mg, Univ ers e 12 Oral, BID, ity of (PROTONIX) 02:00: First dose [place] EC tablet 00 on [facility] Medical 20 mg 10/10/22 at Branch 1999, Until Discontinu ed, Routine mupirocin 2022-0 2022- Yes Nasal, Unive rs (BACTROBAN 10-11 03-17 Q12H, 10 ity of NASAL OINT) 02:00: 00:59 doses, [place] 2 % nasal 00 :00 First dose Medi jimenez ointment on Sat Branch 10/10/22 at 1999, Last dose on [place] 10/15/22 at 0800, Routine epoetin 2022-0 2022- No [id number] 10,000 Unive rs will-epbx 10-11-12 Units, ity of (RETACRIT) 02:00: 03:21 Subcutaneo [place] injection 00 :00 us, ONCE Medica l 10,000 AT 1999, 1 Branch Units dose, On 10/10/22 at 1999, Routine
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 pantoprazol 3-0 Yes [id number] 40mg Take 1 Univers e 40 mg EC 3-12 105 tablet by ity of tablet 00:00: mouth in [place] 00 the Medical morning. Branch levoFLOXaci 3-0 Yes [id number] 250mg Take 1 Univers n 250 mg 3-12 105 tablet by ity of tablet 00:00: mouth in [place] 00 the Medical morning. Branch acidophilus 3-0 Yes [id number] 1g Take 1 Univers 100 million 3-12 105 tablet by ity of cell tablet 00:00: mouth [place] 00 the Medical morning Branch and 1 tablet in the evening. benzonatate 3-0 Yes [id number] 100mg Take 1 Univers 100 mg 3-12 105 capsule by ity of capsule 00:00: mouth [place] 00 every 8 Medical (eight) Branch hours as needed for Cough. pantoprazol 3-0 Yes [id number] 40mg Take 1 Univers e 40 mg EC 3-12 105 tablet by ity of tablet 00:00: mouth in [place] 00 the Medical morning. Branch levoFLOXaci 3-0 Yes [id number] 250mg Take 1 Univers n 250 mg 3-12 105 tablet by ity of tablet 00:00: mouth in [place] 00 the Medical morning. Branch acidophilus 3-0 Yes [id number] 1g Take 1 Univers 100 million 3-12 105 tablet by ity of cell tablet 00:00: mouth in [place] 00 the Medical morning Branch and 1 tablet in the evening. benzonatate 2023-0 Yes [id number] 100mg Take 1 Univers 100 mg 3-12 105 capsule by ity of capsule 00:00: mouth [place] 00 every 8 Medical (eight) Branch hours as needed for Cough. pantoprazol 2023-0 Yes [id number] 40mg Take 1 Univers e 40 mg EC 3-12 105 tablet by ity of tablet 00:00: mouth in [place] 00 the Medical morning. Branch levoFLOXaci 3-0 Yes [id number] 250mg Take 1 Univers n 250 mg 3-12 105 tablet by ity of tablet 00:00: mouth in [place] 00 the Medical morning. Branch acidophilus 2022-0 Yes [id number] 1g Take 1 Univers 100 million -12 105 tablet by ity of cell tablet 00:00: mouth [place] 00 the Medical morning Branch and 1 tablet in the evening. lidocaine 2022-0 2022- No [id number] 20mL 20 mL, U nivers 1% (PF) 11 03-11 Subcutaneo ity o f (XYLOCAINE) 19:15: 19:15 us, [place] injection 00 :00 DIALYSIS Medica l 20 mL ONCE - PT Branch ROOM, 1 dose, On [facility] 10/10/22 at 1315, ANGELA ergocalcife 2022-0 Yes [id number] 50,000 Un mahsa rol 3-11 Units, ity of (vitamin 15:00: Oral, [place] d2) 00 QWEEKLY, Medical (CALCIFEROL First dose Br anch ) capsule on [facility] 50,000 10/10/22 at Units 0900, Until Discontinu ed, Routine foLIC acid 0 Yes 1mg 1 mg, Univer s (FOLATE) -11 Oral, ity of tablet 1 mg 15:00: DAILY, [place] 00 First dose Medical on [facility] 10/10/22 at 0900, Until Discontinu ed, Routine aspirin 0 Yes 81mg 81 mg, Univers chewable -11 Oral, ity of tablet 81 15:00: DAILY, [place] mg 00 First dose Medical on [facility] 10/10/22 at 0900, Until Discontinu ed, Routine allopurinoL 0 Yes 100mg 100 mg, Un mahsa (ZYLOPRIM) -11 Oral, ity of tablet 100 15:00: DAILY, [place] mg 00 First dose Medical on [facility] 10/10/22 at 0900, Until Discontinu ed, Routine calcium 2022-0 Yes 667mg 667 mg, Univer s acetate(lakhwinder 3-11 Oral, TID ity of sphat bind) 14:00: MEALS, [place] (PHOSLO) 00 First dose Medic al capsule [address] [facility] mg 10/10/22 at 0800, Until Discontinu ed, Routine levothyroxi 2022-0 Yes 50ug 50 mcg, Uni vers ne 3-11 Oral, ity of (SYNTHROID) 12:00: QAM-0600, [place] tablet 50 00 First dose Medi jimenez mcg on Sat Branch 10/10/22 at 0600, Until Discontinu ed, Routine heparin Yes 5000U 5,000 Univers (porcine) 11 Units, ity of injection 02:00: Subcutaneo [place] 5,000 Units 00 us, Q12H, Med ical First dose Branch on Wed10/09/22 at 2000, Until Discontinu ed, Routine atorvastati Yes 20mg 20 mg, Univ ers n (LIPITOR) 10 Oral, QPM, it y of tablet 20 23:00: First dose [place] mg 00 on Wed Medical 10/09/22 at Branch 1700, Until Discontinu ed, Routine lidocaine Yes 1{patch 1 Patch, U nivers (LIDODERM) 10-09 } Topical, ity o f 5 % (700 18:00: Administer [place] mg/patch) 00 over 12 Medical patch 1 Hours, Branch Patch DAILY, First dose on Wed10/09/22 at 1200, Until Discontinu ed, Routine sucralfate 2022- No 1g 1 g, Oral, Univers (CARAFATE) 10-09 QID, First it y of tablet 1 g 17:45: 21:59 dose on [place] 00 :22 Fri [facility] 10/09/22 at Branch 1145, Until Discontinu ed, Routine pantoprazol 2022- No 40mg 40 mg, Uni vers e 10-09 Slow IV ity of (PROTONIX) 17:45: 21:59 Push, [place] injection 00 :27 Q12H, Medical 40 mg First dose Branch on Wed10/09/22 at 1145, Until Discontinu ed dextrometho 0 2022- No 10mL 10 mL, Uni vers [...] at 1158, Routine, Pain (scale 7-10) HYDROcodone 2023-0 2023- No 1{tbl} 1 tablet, Univers -acetaminop 10-09 Oral, ity of hen (NORCO 15:10: 15:09 Q6HPRN, [place] 5) 5-325 mg 36 :36 Starting Medi jimenez tablet 1 on Fri Branch tablet 10/09/22 at 0910, Until 10/11/22 at 1009, Routine, Pain (scale 4-6) acetaminoph 2022- Yes 650mg 650 mg, Un mahsa en 3-10 Oral, ity of (TYLENOL) 15:10: Q6HPRN, [place] tablet 650 27 Starting Medic al mg on Fri Branch 10/09/22 at 0910, Until Discontinu ed, Routine, Pain (scale 1-3) famotidine 2022- No 20mg 20 mg, Univ ers (PEPCID 10-09- Slow IV ity of (PF)) 14:15: 13:36 Push, ONCE [place] injection 00 :00 NOW, 1 Medical 20 mg dose, On Branch 10/09/22 at 0815, ANGELA ondansetron 2022-0 2022- No 4mg 4 mg, Slow Univers (ZOFRAN 10-09 IV Push, ity of (PF)) 13:15: 13:36 ONCE, 1 [place] injection 4 00 :00 dose, On Medi jimenez mg Fri Branch 10/09/22 at 0715, ANGELA NaCl 0.9% 2022- No 500mL at 999 Univ ers (NS) bolus 3- 03-10 mL/hr, 500 it y of infusion 13:15: 14:51 mL, IV [place] 500 mL 00 :00 Infusion, Medical ONCE, 1 Branch dose, On 10/09/22 at 0715, STAT ondansetron 2022-0 2022- No 4mg 4 mg, Slow Univers (ZOFRAN 3-09 03-09 IV Push, ity of (PF)) 05:45: 05:01 ONCE, 1 [place] injection 4 00 :00 dose, On Medi jimenez mg Wed10/07/22 Branch at 2345, ANGELA vancomycin 2021-08 Yes 15mg/kg 1,000 mg Univers (VANCOCIN) 2-15 (rounded ity o f 1,000 mg in 01:00: from 1,095 [place] NaCl 0.9% 00 mg = 15 Medical (NS) 250 mL mg/kg ?73 [facility] VIAL-MATE kg), IV IV Piggyback, piggyback Q48H ABX, First dose (after last reorder) on Wed07/15/22 at 1900, Until Discontinu ed, Administer over 60 Minutes, 250 mL
Reas on for Anti-Infec tive: Empiric Therapy for Suspected Infection< br>Empiric Therapy Site: Blood<b r>Duration of therapy: 72 hours heparin 2021-08 No 1500U 1,500 Univers 1,000 2-14 12-15 Units, ity of unit/mL 13:00: 00:59 Slow IV [place] injection 00 :00 Push, Medical 1,500 Units DIALYSIS Bran ch ONCE - PT ROOM, 1 dose, On Wed07/15/22 at 0700, Routine doxazosin 2021-08 Yes 2mg 2 mg, Univers (CARDURA) 2-14 Oral, QHS, ity of tablet 2 mg 03:00: First dose [place] 00 on Wed [facility] 07/14/22 Branch at 2100, Until Discontinu ed, [...] First dose [place] mg 00 on [facility] 07/14/22 Branch at 1700, Until Discontinu ed, [...] Branch tablet at bedtime atorvastati 2021-08 Yes [id number] .5{tbl} Take 0.5 Univers n 40 mg 2-13 tablets by ity of tablet 18:13: mouth [place] every Medical evening. Branch aspirin 81 2021-08 Yes 81mg Take 81 mg U nivers mg chewable 2-13 by mouth ity of tablet 18:13: daily. [address] Branch foLIC acid 2021-08 Yes 1mg Take 1 mg Un mahsa 1 mg tablet 2-13 by mouth ity of 18:13: daily. [address] Branch allopurinoL 2021-08 Yes 100mg Take 100 U nivers 100 mg 2-13 mg by ity of tablet 18:13: mouth in [place] 06 the Medical morning. Branch ferric 2021-08 [...] 2-13 by mouth ity of 18:13: every [place] [address] evening. Medical Take 1/2 Branch tablet at bedtime atorvastati 2021-08 Yes [id number] .5{tbl} Take 0.5 Univers n 40 mg 2-13 tablets by ity of tablet 18:13: mouth [place] 06 every Medical evening. Branch aspirin 81 2021-08 Yes 81mg Take 81 mg U nivers mg chewable 2-13 by mouth ity of tablet 18:13: daily. [place] [address] Medical Branch foLIC acid 2021-08 Yes 1mg Take 1 mg Un mahsa 1 mg tablet 2-13 by mouth ity of 18:13: daily. [place] [address] Medical Branch allopurinoL 2021-08 Yes 100mg Take 100 U nivers 100 mg 2-13 mg by ity of tablet 18:13: mouth in [place] the Medical morning. Branch ferric 2021-08 Yes [...] mcg by ity of tablet 18:13: mouth [place] [address] every Medical morning. Branch amLODIPine 2021-08 Yes 5mg Take 5 mg Un mahsa (NORVASC) 2-13 by mouth ity of 10 mg 18:13: in the [place] [facility] 06 morning. Medical Take 1/2 Branch tablet once a day doxazosin 4 2021-08 Yes 2mg Take 2 mg U nivers mg tablet 2-13 by mouth ity of 18:13: every [place] 06 evening. Medical Take 1/2 Branch tablet at bedtime atorvastati 2021-08 Yes [id number] .5{tbl} Take 0.5 Univers n 40 mg 2-13 tablets by ity of tablet 18:13: mouth [place] 06 every Medical evening. Branch aspirin 81 2021-08 Yes 81mg Take 81 mg U nivers mg chewable 2-13 by mouth ity of tablet 18:13: daily. [address] Branch foLIC acid 2021-08 Yes 1mg Take 1 mg Un mahsa 1 mg tablet 2-13 by mouth ity of 18:13: daily. [address] Branch allopurinoL 2021-08 Yes 100mg Take 100 U nivers 100 mg 2-13 mg by ity of tablet 18:13: mouth in [place] [address] the Medical morning. Branch ferric 2021-08 Yes [...] mcg by ity of tablet 18:13: mouth [place] [address] every Medical morning. Branch amLODIPine 2021-08 Yes 5mg Take 5 mg [place] (NORVASC) 2-13 by mouth ity of 10 mg 18:13: in the [facility] morning. Medical Take 1/2 Branch tablet once a day doxazosin 4 2021-08 Yes 2mg Take 2 mg U nivers mg tablet 2-13 by mouth ity of 18:13: every evening. Medical Take 1/2 Branch tablet at bedtime atorvastati 2021-08 Yes [id number] .5{tbl} Take 0.5 Univers n 40 mg 2-13 tablets by ity of tablet 18:13: mouth [place] [address] every Medical evening. Branch aspirin 81 2021-08 Yes 81mg Take 81 mg U nivers mg chewable 2-13 by mouth ity of tablet 18:13: daily. [address] Branch foLIC acid 2021-08 Yes 1mg Take 1 mg [facility] 1 mg tablet 2-13 by mouth ity of 18:13: daily. [address] allopurinoL 2021-08 Yes 100mg Take 100 U nivers 100 mg 2-13 mg by ity of tablet 18:13: mouth in [place] 06 the Medical morning. Branch ferric 2021-08 [...] mcg by ity of tablet 18:13: mouth [place] 06 every Medical morning. Branch calcium 2021-08 Yes 1334mg 1,334 mg, Uni vers acetate(lakhwinder 2-13 Oral, TID ity of sphat bind) 18:00: [place] (PHOSLO) 00 First dose Medic al capsule on [facility] 1,334 mg 07/14/22 at 1200, Until Discontinu ed, Routine cetirizine 2021-08 Yes 10mg 10 mg, Unive rs (ZYRTEC) 2-13 Oral, ity of tablet 10 15:00: DAILY, [place] mg 00 First dose Medical on [facility] 07/14/22 at 0900, Until Discontinu ed, Routine foLIC acid 2021-08 Yes 1mg 1 mg, Univer s (FOLATE) 2-13 Oral, ity of tablet 1 mg 15:00: DAILY, [place] 00 First dose Medical on [facility] 07/14/22 at 0900, Until Discontinu ed, Routine aspirin 2021-08 Yes 81mg 81 mg, Univers chewable 2-13 Oral, ity of tablet 81 15:00: DAILY, [place] mg 00 First dose Medical on [facility] 07/14/22 at 0900, Until Discontinu ed, Routine allopurinoL 2021-08 Yes 100mg 100 mg, [facility] (ZYLOPRIM) 2-13 Oral, ity of tablet 100 15:00: DAILY, [place] mg 00 First dose Medical on [facility] 07/14/22 at 0900, Until Discontinu ed, Routine [...] 2-13 IV Push, ity of (PF)) 04:41: Q6HPRN, [place] injection 4 36 Starting Medi jimenez mg on Wed Branch 07/13/22 at 2241, Until Discontinu ed, Routine, Nausea and Vomiting (N/V) traMADoL 2021-08- No 50mg 50 mg, Univer s (ULTRAM) 09-14 Oral, ity of tablet 50 04:41: 04:40 Q8HPRN, [place] mg 30 :30 Starting Medical on Wed Branch 07/13/22 at 2241, Until Wed07/15/22 at 2240, Routine, Pain (scale 4-6) acetaminoph 2021-08 Yes 650mg 650 mg, [facility] en 2-13 Oral, ity of (TYLENOL) 04:41: Q6HPRN, [place] tablet 650 28 Starting Medic al mg on Wed Branch 07/13/22 at 2241, Until Discontinu ed, Routine, Pain (scale 1-3) vancomycin 2021-08- No 15mg/kg 1,000 mg Univers (VANCOCIN) 09-14 (rounded ity of 1,000 mg in 01:30: 02:53 from 1,095 [place] NaCl 0.9% 00 :00 mg = 15 Medical (NS) 250 mL mg/kg ?73 [facility] VIAL-MATE kg), IV IV Piggyback, piggyback ONCE, 1 dose, On Wed07/13/22 at 1930, Administer over 60 Minutes, 250 mL
Reas on for Anti-Infec tive: Empiric Therapy for Suspected Infection< br>Empiric Therapy Site: Blood
D uration of therapy: 72 hours ceFEPIme 2021-08- No 1g 1 g, IV Unive rs (MAXIPIME) 09-14 Piggyback, it y of 1 g in NaCl 00:30: 01:08 ONCE, 1 [place] 0.9% (NS) 00 :00 dose, On Medica l 50 mL [facility] MINI-BAG 07/13/22 at 1830, Administer over 30 Minutes, 50 mL
Reas on for Anti-Infec tive: Documented Infection< br>Documen terrance Infection Site: Blood
D uration of Therapy: Other (see Comments) calcium 2021-08 No [id number] 1334mg Take 2 U nivers acetate,lakhwinder 09-14 capsules ity of sphat bind, 00:00: 05:59 by mouth [place] 667 mg 00 :00 in the Medical capsule morning Branch and 2 capsules at noon and 2 capsules in the evening. Take with meals. Do all this for 30 days. calcium 2021-08 No [id number] 1334mg Take 2 U nivers acetate,lakhwinder 09-14 capsules ity of sphat bind, 00:00: 05:59 by mouth [place] 667 mg 00 :00 in the Medical capsule morning Branch and 2 capsules at noon and 2 capsules in the evening. Take with meals. Do all this for 30 days. calcium 2021-08- No [id number] 1334mg Take 2 U nivers acetate,lakhwinder 09-14 capsules ity of sphat bind, 00:00: 05:59 by mouth [place] 667 mg 00 :00 in the Medical capsule morning Branch and 2 capsules at noon and 2 capsules in the evening. Take with meals. Do all this for 30 days. acetaminoph 2021-08 No 975mg 975 mg, U nivers en 09-13- Oral, ity of (TYLENOL) 23:45: 22:57 ONCE, 1 [place] tablet 975 00 :00 dose, On Medic al mg [facility] Branch 07/13/22 at 1745, ANGELA levothyroxi 2021-08- No 75ug Take 75 [facility] ne 75 mcg 09-13 mcg by ity of tablet 22:41: 00:00 mouth [place] 50 :00 daily. Medical Branch sodium 2021-08- No [id number] 325mg Take 325 U nivers bicarbonate 2-12 12-12 mg by ity of 325 mg 22:41: 00:00 mouth 2 [place] tablet 50 :00 (two) Medical times Branch daily. levothyroxi 2021-08 Yes 75ug Take 75 Uni vers ne 75 mcg 0-01 mcg by ity of tablet 15:39: mouth [place] 11 daily. Medical Branch amLODIPine 2021-08 Yes 10mg Take 10 mg U nivers (NORVASC) 0-01 by mouth ity of 10 mg 15:39: daily. [place] tablet 11 [facility] Branch doxazosin 4 2021-08 Yes 4mg Take 4 mg U nivers mg tablet 0-01 by mouth 2 ity of 15:39: (two) [place] 11 times Medical daily. Branch atorvastati 2021-08 Yes [id number] .5{tbl} Take 0.5 Univers n 40 mg 0-01 tablets by ity of tablet 15:39: mouth [place] [address] daily. Medical Branch aspirin 81 2021-08 Yes 81mg Take 81 mg U nivers mg chewable 0-01 by mouth ity of tablet 15:39: daily. [address] Branch foLIC acid 2021-08 Yes 1mg Take 1 mg [facility] [place] 1 mg tablet 0-01 by mouth ity of 15:39: daily. [address] sodium 2021-08 Yes [id number] 325mg Take 325 [facility] bicarbonate 0-01 mg by ity of 325 mg 15:39: mouth 2 [place] tablet 11 (two) Medical times Branch daily. allopurinoL 2021-08 Yes 100mg Take 100 U nivers 100 mg 0-01 mg by ity of tablet 15:39: mouth in [place] 11 the Medical morning. Branch ferric 2021-08 [...] mcg by ity of tablet 15:39: mouth [place] 11 daily. Medical Branch amLODIPine 2021-08 Yes 10mg Take 10 mg U nivers (NORVASC) 0-01 by mouth ity of 10 mg 15:39: daily. [place] tablet 11 Medical Branch doxazosin 4 2021-08 Yes 4mg Take 4 mg U nivers mg tablet 0-01 by mouth 2 ity of 15:39: (two) [place] 11 times Medical daily. Branch atorvastati 2021-08 Yes [id number] .5{tbl} Take 0.5 Univers n 40 mg 0-01 tablets by ity of tablet 15:39: mouth [place] 11 daily. Medical Branch aspirin 81 2021-08 Yes 81mg Take 81 mg U nivers mg chewable 0-01 by mouth ity of tablet 15:39: daily. [address] Branch foLIC acid 2021-08 Yes 1mg Take 1 mg [place] 1 mg tablet 0-01 by mouth ity of 15:39: daily. [address] Branch sodium 2021-08 Yes [id number] 325mg Take 325 [facility] [place] bicarbonate 0-01 mg by ity of 325 mg 15:39: mouth 2 [place] tablet 11 (two) Medical times Branch daily. allopurinoL 2021-08 Yes 100mg Take 100 U nivers 100 mg 0-01 mg by ity of tablet 15:39: mouth in [place] the Medical morning. Branch ferric 2021-08 Yes [...] mcg by ity of tablet 15:39: mouth [place] 11 daily. Medical Branch amLODIPine 2021-08 Yes 10mg Take 10 mg U nivers (NORVASC) 0-01 by mouth ity of 10 mg 15:39: daily. [place] tablet 11 Medical Branch doxazosin 4 2021-08 Yes 4mg Take 4 mg U nivers mg tablet 0-01 by mouth 2 ity of 15:39: (two) [place] 11 times Medical daily. Branch atorvastati 2021-08 Yes [id number] .5{tbl} Take 0.5 Univers n 40 mg 0-01 tablets by ity of tablet 15:39: mouth [place] 11 daily. Medical Branch aspirin 81 2021-08 Yes 81mg Take 81 mg U nivers mg chewable 0-01 by mouth ity of tablet 15:39: daily. [address] foLIC acid 2021-08 Yes 1mg Take 1 mg [place] 1 mg tablet 0-01 by mouth ity of 15:39: daily. [address] sodium 2021-08 Yes [id number] 325mg Take 325 [facility] bicarbonate 0-01 mg by ity of 325 mg 15:39: mouth 2 [place] tablet 11 (two) Medical times [place] daily. allopurinoL 2021-08 Yes 100mg Take 100 U nivers 100 mg 0-01 mg by ity of tablet 15:39: mouth in [place] [address] the Medical morning. Branch ferric 2021-08 Yes 210mg Take 210 Univer s citrate 0-01 mg by ity of (AURYXIA) 15:39: mouth 3 [place] 210 mg iron 11 (three) Medic al [...] Inhalation ity of (DUONEB) 01:00: , BID, [place] 0.5 mg-3 00 First dose Medic al mg(2.5 mg (after Branch base)/3 mL last nebulizer modificati solution 3 on) on [place] mL 04/30/22 at 1999, Until Discontinu ed, Routine benzocaine- Yes [id number] 1{lozen 1 Lozenge, Univers menthoL 04-30 ge} Oral, ity of (CEPACOL 22:22: Q4HPRN, [place] SORE THROAT 10 Starting Medi jimenez (SATNAM-MEN)) on [place] Branch lozenge 1 04/30/22 at Lozenge 1722, Until Discontinu ed, Routine, Sore throat levothyroxi Yes 75ug 75 mcg, Uni vers ne 04-28 Oral, ity of (SYNTHROID) 11:00: QAM-0600, [place] tablet 75 00 First dose Medi jimenez mcg on e Branch 04/28/22 at 0600, Until Discontinu ed, Routine epoetin 2021- No [id number] 10,000 Unive rs will-epbx 04-27 Units, ity of (RETACRIT) 14:45: 15:35 Intravenou [place] injection 00 :00 s, Medical 10,000 DIALYSIS Branch Units ONCE - PT ROOM, 1 dose, On Wed04/27/22 at 0945, Routine
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
In dication for insulin: Hyperkalem ia- Please use the Insulin Protocol for Hyperkalem ia order set sodium 2021-0 2021- No 50meq 50 mEq, Univer s bicarbonate 04-27 Slow IV ity of 1 mEq/mL 12:30: 12:43 [place], [place] (8.4 %) 00 :00 ONCE, 1 [...] swallow or has mental status changes. calcium 2021-0 2021- No 2g 2 g, IV Univer [...] 21 Starting Medi jimenez oral liquid on [facility] Branch 650 mg 04/27/22 at 0034, Until [...] First dose Medi jimenez 38 mcg on [place] Branch 04/26/22 at 1400, Until Discontinu ed, Routine dextrose 50 Yes 25mL 25 mL, Univ ers % in water 04-26 Slow IV ity of (D50W) 16:13: Push, PRN, [place] injection 01 Starting Medica l 25 mL on [place] Branch 04/26/22 at 1113, Until Discontinu ed, Routine, Blood Glucose <= 70 atropine 2021- No .4mg 0.4 mg, IV [facility] injection 04-26 Push, ity of 0.4 mg 14:31: 15:22 Q5MIN PRN, [place] 23 :16 Starting Medical on [place] Branch 04/26/22 at 0931, Until 04/26/22 at 1022, Routine, Symptomati c Bradycardi a insulin No 10U 10 Units, Univ ers regular 04-26 Slow IV ity of human 14:30: 13:50 Push, [place] (HUMULIN R) 00 :00 ONCE, 1 Medic al injection dose, On Branch 10 Units 04/26/22 at 0930, Routine
Indicatio n for insulin: Hyperglyce leroy dextrose 50 No 25mL 25 mL, Uni vers % in water 04-26 Slow IV ity o f (D50W) 14:30: 13:46 Push, [place] injection 00 :00 ONCE, 1 Medical 25 mL dose, On Branch 04/26/22 at 0930, Routine albuterol No 2.5mg 2.5 mg, Uni vers (PROVENTIL) 04-26 Inhalation i ty of 2.5 mg /3 13:52: 14:46 , PRN, 4 [place] as mL (0.083 56 :00 doses, Medical %) Starting [place] nebulizer on [place] solution 04/26/22 at 2.5 mg 0852, Until Discontinu ed, Routine, Shortness of Breath, Wheezing, Hyperkalem ia ondansetron 2021- No 4mg 4 mg, Slow Univers (ZOFRAN 04-26 IV Push, ity of (PF)) 13:30: 13:30 ONCE, On [place] injection 4 00 :00 Sun Medical mg 04/26/22 at Branch 0830, For 1 dose
Do ses of ondansetro n 16 mg and above need to be administer ed via IV piggyback. For Dose >=24mg ECG monitoring is advisable.
lidocaine-p Yes Topical, [facility] rilocaine 04-26 QDAILYPRN, ity of (EMLA) 13:22: Starting [place] 2.5-2.5 % 49 on [place] Medical cream 04/26/22 at Branch 0822, Until Discontinu ed, Routine, Local anesthesia heparin Yes 5000U 5,000 Univers (porcine) 9-25 Units, ity of injection 13:00: Subcut[place]o [place] 5,000 Units 00 us, Q12H, Med ical First dose Branch on Wed04/26/22 at 0800, Until Discontinu ed, Routine famotidine No 10mg 10 mg, [facility] ers (PEPCID 04-26 Slow IV ity of (PF)) 13:00: 14:45 Push, [place] injection 00 :08 Q12H, 6 Medical 10 mg doses, Branch First dose on Wed04/26/22 at 0800, Last dose on Wed04/28/22 at 2000, Routine
Indicatio n for use: None of the above DOPamine Yes 2.5ug/k 2.5-7.5 Uni vers 800 mg/500 04-26 g/min mcg/kg/min it y of mL (1,600 [...] a time.
sodium No 100meq 100 mEq, [facility] ers bicarbonate 04-26 Slow IV ity of 1 mEq/mL 12:30: 11:54 Push, [place] (8.4 %) 00 :00 ONCE, 1 Medical injection dose, On Branch 100 mEq [place] 04/26/22 at 0730, Routine calcium 2021- No 2g 2 g, IV Univer s gluconate 2 04-26 Infusion, it y of g in NaCl 12:30: 12:31 at 200 [place] 100 mL 00 :00 mL/hr Medical (ISO-OSM) Administer Bran ch RTU IV over 30 infusion 2 Minutes, g ONCE, 1 dose, On [place] 04/26/22 at 0730, Routine ipratropium No 3mL 3 mL, Univ ers -albuteroL 04-26 Inhalation it y of (DUONEB) 11:45: 13:40 , QID, [place] 0.5 mg-3 00 :00 First dose Medic al mg(2.5 mg on [place] Branch base)/3 mL 04/26/22 at nebulizer 0645, solution 3 Until mL Discontinu ed, Routine dextrose 50 No 25mL 25 mL, Uni vers % in water 04-26 Slow IV ity o f (D50W) 10:15: 10:05 Push, [place] injection 00 :00 ONCE, 1 Medical 25 mL dose, On Branch [place] 04/26/22 at 0515, Routine insulin No 10U 10 Units, [facility] ers regular 04-26 Slow IV ity of human 08:45: 08:09 [place], [place] (HUMULIN R) 00 :00 ONCE, 1 Medic al injection dose, On Branch 10 Units [place] 04/26/22 at 0345, Routine
Indicatio n for insulin: Hyperglyce leroy dextrose 50 2021- No 50mL 50 mL, Uni vers % in water 04-26 Slow IV ity o f (D50W) 08:45: 08:07 Push, [place] injection 00 :00 ONCE, 1 Medical 50 mL dose, On Branch [place] 04/26/22 at 0345, Routine calcium 2021- No 1g 1 g, IV Univer s gluconate 1 04-26 Infusion, it y of g in NaCl 08:30: 08:39 at 100 [place] 50 mL 00 :00 mL/hr Medical (ISO-OSM) Administer Bran ch RTU IV over 30 infusion 1 Minutes, g ONCE, 1 dose, On [place] 04/26/22 at 0330, Routine NaCl 0.9% 2021- No 250mL at 999 [facility] ers (NS) IV 9-25 09-25 mL/hr, ity of infusion 08:30: 19:24 Intravenou [place] 250 mL 00 :41 s, Medical CONTINUOUS Branch , Starting on [place] 04/26/22 at 0330, Until [place] 04/26/22 at 1424, Routine atropine 2021- No 1mg 1 mg, IV Univ ers injection 1 04-26 Push, ity of mg 08:00: 07:47 ONCE, 1 [place] 00 :00 dose, On Medical [facility] 04/26/22 at 0300, Routine albuterol 2021- No 10mg 10 mg, Unive rs (PROVENTIL) 04-26 Inhalation i ty of 2.5 mg /3 08:00: 08:16 , ONCE, 1 [place] mL (0.083 00 :00 dose, On Medica l %) [facility] nebulizer 04/26/22 at solution 10 0300, STAT mg proMETHazin 2021- No 25mg 25 mg, IV Univers e 04-26 Piggyback, ity of (PHENERGAN) 07:15: 07:21 ONCE, 1 [place] 25 mg in 00 :00 dose, On Medical NaCl 0.9% [facility] (NS) 50 mL 04/26/22 at IV 0215, ANGELA piggyback sodium Yes 5mL 5 mL, Univers chloride 04-26 Intravenou ity o f (NS) 06:52: s, PRN, [place] injection 5 13 Starting Medi jimenez mL on [facility] 04/26/22 at 0152, Until Discontinu ed, Routine, IV line flushing tetanus-dip 2019-08 2020- No .5mL 0.5 mL, Un mahsa htheria 0-19 -19 Intramuscu ity o f toxoids 19:15: 19:26 lar, ONCE, [place] as (TENIVAC) 00 :00 1 dose, Medical 5-2 [facility] Branch unit/0.5 mL 05/20/20 injection at 1415, 0.5 mL Routine lidocaine-p 2019-0 Yes [id number] administra Methodi rilocaine 2-[address] (EMLA) 00:00: local Hospita 2.5-2.5 % 00 anesthetic l cream drug. Apply over fistula 30-45 min before dialysis lidocaine-p 2020-0 Yes [id number] administra Methodi rilocaine 2-[address] (EMLA) 00:00: local Hospita 2.5-2.5 % 00 anesthetic l cream drug. Apply over fistula 30-45 min before dialysis lidocaine-p 2020-0 Yes [id number] administra Methodi rilocaine 2-[address] (EMLA) 00:00: local Hospita 2.5-2.5 % 00 anesthetic l cream drug. Apply over fistula 30-45 min before dialysis lidocaine-p 2020-0 Yes [id number] administra Methodi rilocaine 2-[address] (EMLA) 00:00: local Hospita 2.5-2.5 % 00 anesthetic l cream drug. Apply over fistula 30-45 min before dialysis lidocaine-p 2020-0 Yes [id number] administra Methodi rilocaine 2-[address] (EMLA) 00:00: local Hospita 2.5-2.5 % 00 anesthetic l cream drug. Apply over fistula 30-45 min before dialysis lidocaine-p 2020-0 Yes [id number] administra Methodi rilocaine 2-[address] (EMLA) 00:00: local Hospita 2.5-2.5 % 00 anesthetic l cream drug. Apply over fistula 30-45 min before dialysis acetaminoph 2020-0 Yes [id number] 1{tbl} Q6H Take 1 M ethodi en-codeine 1-[address] (TYLENOL 00:00: mouth Hospita WITH 00 every 6 l CODEINE #3) (six) 300-30 mg hours as per tablet needed for moderate pain for up to 5 days .acute pain. acetaminoph 2020-0 Yes [id number] 1{tbl} Q6H Take 1 M ethodi en-codeine 1-[address] (TYLENOL 00:00: mouth Hospita WITH 00 every 6 l CODEINE #3) (six) 300-30 mg hours as per tablet needed for moderate pain for up to 5 days .acute pain. acetaminoph 2020-0 Yes [id number] 1{tbl} Q6H Take 1 M ethodi en-codeine 1-[address] (TYLENOL 00:00: mouth Hospita WITH 00 every 6 l CODEINE #3) (six) 300-30 mg hours as per tablet needed for moderate pain for up to 5 days .acute pain. acetaminoph 2020-0 Yes [id number] 1{tbl} Q6H Take 1 M ethodi en-codeine 1-[address] (TYLENOL 00:00: mouth Hospita WITH 00 every 6 l CODEINE #3) (six) 300-30 mg hours as per tablet needed for moderate pain for up to 5 days .acute pain. acetaminoph 2020-0 Yes [id number] 1{tbl} Q6H Take 1 M ethodi en-codeine 1-[address] (TYLENOL 00:00: mouth Hospita WITH 00 every 6 l CODEINE #3) (six) 300-30 mg hours as per tablet needed for moderate pain for up to 5 days .acute pain. acetaminoph 2020-0 Yes [id number] 1{tbl} Q6H Take 1 M ethodi en-codeine 1-[address] (TYLENOL 00:00: mouth Hospita WITH 00 every 6 l CODEINE #3) (six) 300-30 mg hours as per tablet needed for moderate pain for up to 5 days .acute pain. aspirin-jimenez 2020-0 Yes 81mg Take 81 mg Methodi cium 1-[address] carbonate 14:22: Hospita 81 mg-300 39 l mg calcium(777 mg) tablet hydrALAZINE 2020-0 Yes 10mg Q.[id number] Take 10 mg Methodi (APRESOLINE 1-06 [id number] mouth [address] st ) 10 MG [...] calcium(777 mg) tablet hydrALAZINE 2020-0 Yes 10mg Q.56944569 Take 10 mg Methodi (APRESOLINE 1-06 [id number] [address] mouth 3 st ) 10 MG [...] calcium(777 mg) tablet hydrALAZINE 2020-0 Yes 10mg Q.10816974 Take 10 mg Methodi (APRESOLINE 1-06 [id number] [address] mouth 3 st ) 10 MG [...] calcium(777 mg) tablet hydrALAZINE 2020-0 Yes 10mg Q.49389000 Take 10 mg Methodi (APRESOLINE 1-06 [id number] mouth 3 st ) 10 MG [...] calcium(777 mg) tablet hydrALAZINE 2020-0 Yes 10mg Q.[id number] Take 10 mg Methodi (APRESOLINE 1-06 [id number] mouth 3 st ) 10 MG [...] 39 daily. l tablet,loco yed release (DR/EC) amLODIPine 2020-0 Yes 10mg QD Take 10 [...] daily. l D3) 1,000 unit tablet iron-vitami 2019-0 Yes 1{tbl} QD Take 1 Me thodi n C 65 mg 1-[address] iron- 125 14:22: mouth Hospita mg 39 daily. l tablet,loco yed release (DR/EC) aspirin-jimenez 2019-0 Yes 81mg Take 81 mg Methodi cium 1-[address] carbonate 14:22: Hospita 81 mg-300 39 l mg calcium(777 mg) tablet hydrALAZINE Yes 10mg Q.53012007 Take 10 mg Methodi (APRESOLINE 08-07 [id number] by mouth 3 st ) 10 MG [...] mcg 00 l tablet sodium 2017-08 Yes [id number] 325mg Take 325 [place] bicarbonate 2-03 [...] by mouth 2 ity of 14:52: (two) [place] [address] times Medical daily. Branch atorvastati 2017-08 Yes [id number] .5{tbl} Take 0.5 Univers n 40 mg 2-03 tablets by ity of tablet 14:52: mouth [place] [address] daily. Medical Branch aspirin 81 2017-08 Yes 81mg Take 81 mg U nivers mg chewable 2-03 by mouth ity of tablet 14:52: daily. [address] Branch foLIC acid 2017-08 Yes 1mg Take 1 mg [place] 1 mg tablet 2-03 by mouth ity of 14:52: daily. [address] Branch hydralAZINE Yes 50mg Take 50 mg Univers 10 mg 5-23 by mouth ity of tablet 00:00: in the [place] [address] morning Medical and 50 mg Branch in the evening. hydralAZINE Yes 10mg Take 10 mg Univers 10 mg 5-23 by mouth ity of tablet 00:00: daily. [address] Branch hydralAZINE Yes 50mg Take 50 mg Univers 10 mg 5-23 by mouth ity of tablet 00:00: in the [place] [address] morning Medical and 50 mg Branch in the evening. hydralAZINE Yes 50mg Take 50 mg Univers 10 mg 5-23 by mouth ity of tablet 00:00: in the [place] 00 morning Medical and 50 mg Branch in the evening. hydralAZINE No 50mg Take 50 mg Univers 10 mg 5-23 12-12 by mouth ity of tablet 00:00: 00:00 in the [place] 00 :00 morning Medical and 50 mg Branch in the evening. carvedilol 2018-0 Yes 1{tbl} Take 1 Uni vers 6.25 mg 4-26 tablet by ity of tablet 00:00: mouth in [place] 00 the Medical morning Branch and 1 tablet in the evening. Take with meals. carvedilol 2017- Yes 1{tbl} Take 1 Uni vers 6.25 mg 4-26 tablet by ity of tablet 00:00: mouth [place] 00 daily. [facility] carvedilol 2017- Yes 1{tbl} Take 1 Uni vers 6.25 mg 4-26 tablet by ity of tablet 00:00: mouth in [place] 00 the Medical morning Branch and 1 tablet in the evening. Take with meals. carvedilol 2018- Yes 1{tbl} Take 1 Uni vers 6.25 mg 4-26 tablet by ity of tablet 00:00: mouth in [place] 00 the [facility] morning Branch and 1 tablet in the evening. Take with meals. carvedilol 2017- Yes .5{tbl} Take 0.5 Univers 6.25 mg 4-26 tablets by ity of tablet 00:00: mouth in [place] 00 the [facility] morning [place] and 0.5 tablets in the evening. Take with meals. Hold morning dose on [facility] carvedilol 2017- Yes .5{tbl} Take 0.5 Univers 6.25 mg 4-26 tablets by ity of tablet 00:00: mouth in [place] 00 the [facility] morning [place] and 0.5 tablets in the evening. Take with meals. Hold morning dose on [facility] carvedilol 2017- Yes .5{tbl} Take 0.5 Univers 6.25 mg 4-26 tablets by ity of tablet 00:00: mouth in [place] 00 the [facility] morning [place] and 0.5 tablets in the evening. Take with meals. Hold morning dose on [facility] carvedilol 2017- Yes .5{tbl} Take 0.5 Univers 6.25 mg 4-26 tablets by ity of tablet 00:00: mouth in [place] 00 the [facility] morning [place] and 0.5 tablets in the evening. Take with meals. Hold morning dose on [facility] carvedilol 2017- Yes 3.125mg Take 0.5 Univers 6.25 mg 4-26 tablets by ity of tablet 00:00: mouth in [place] 00 the [facility] morning [place] and 0.5 tablets in the evening. Take with meals. Hold morning dose on [facility] carvedilol Yes 3.125mg Take 0.5 Univers 6.25 mg 4-26 tablets by ity of tablet 00:00: mouth in [place] 00 the Medical morning Branch and 0.5 tablets in the evening. Take with meals. Hold morning dose on [facility] carvedilol Yes 3.125mg Take 0.5 Univers 6.25 mg 4-26 tablets by ity of tablet 00:00: mouth in [place] 00 the Medical morning Branch and 0.5 tablets in the evening. Take with meals. Hold morning dose on [facility] doxazosin Yes Comments: Met miller WATTS) [...] Duration: 90 doxazosin Yes Comments: Met miller (CARDURA) 4 04-22 | Filled st MG tablet 00:00: Date: Apr Hos winifred 2016 l 12:00AM | Patient Notes: TAKE 1 TABLET BY ORAL ROUTE 2 TIMES EVERY DAY Duration: 90 doxazosin Yes Comments: Met miller (CARDURA) 4 04-22 | Filled st MG tablet 00:00: Date: Apr Hos winifred 2016 l 12:00AM | Patient Notes: TAKE 1 TABLET BY [address] R[address] 2 TIMES EVERY DAY Duration: 90 Immunizations Ordered Filled Immunization Date Status Comments [facility] e Immunization Name Name SARS-COV-2 COVID-19 2020-11-07 Completed Unive rsity of PFIZER VACCINE 00:00:00 [facility] SARS-COV-2 COVID-19 2020-11-07 Completed Unive rsity of PFIZER VACCINE 00:00:00 [facility] SARS-COV-2 COVID-19 2020-11-07 Completed Unive rsity of PFIZER VACCINE 00:00:00 [facility] SARS-COV-2 COVID-19 2020-11-07 Completed Unive rsity of PFIZER VACCINE 00:00:00 [facility] SARS-COV-2 COVID-19 2020-11-07 Completed Unive rsity of PFIZER VACCINE 00:00:00 [facility] SARS-COV-2 COVID-19 2020-11-07 Completed Unive rsity of PFIZER VACCINE 00:00:00 [facility] SARS-COV-2 COVID-19 2020-11-07 Completed Unive rsity of PFIZER VACCINE 00:00:00 [facility] SARS-COV-2 COVID-19 2020-11-07 Completed Unive rsity of PFIZER VACCINE 00:00:00 [facility] SARS-COV-2 COVID-19 2020-11-07 Completed Unive rsity of PFIZER VACCINE 00:00:00 [facility] SARS-COV-2 COVID-19 2020-11-07 Completed Unive rsity of PFIZER VACCINE 00:00:00 [facility] SARS-COV-2 COVID-19 2020-10-16 Completed Unive rsity of PFIZER VACCINE 00:00:00 [facility] SARS-COV-2 COVID-19 2020-10-16 Completed Unive rsity of PFIZER VACCINE 00:00:00 [facility] SARS-COV-2 COVID-19 2020-10-16 Completed Unive rsity of PFIZER VACCINE 00:00:00 [facility] SARS-COV-2 COVID-19 2020-10-16 Completed Unive rsity of PFIZER VACCINE 00:00:00 [facility] SARS-COV-2 COVID-19 2020-10-16 Completed Unive rsity of PFIZER VACCINE 00:00:00 [facility] SARS-COV-2 COVID-19 2020-10-16 Completed Unive rsity of PFIZER VACCINE 00:00:00 [facility] SARS-COV-2 COVID-19 2020-10-16 Completed Unive rsity of PFIZER VACCINE 00:00:00 [facility] SARS-COV-2 COVID-19 2020-10-16 Completed Unive rsity of PFIZER VACCINE 00:00:00 [facility] SARS-COV-2 COVID-19 2020-10-16 Completed Unive rsity of PFIZER VACCINE 00:00:00 [facility] SARS-COV-2 COVID-19 2020-10-16 Completed Unive rsity of PFIZER VACCINE 00:00:00 [facility] Td 2020-05-20 Completed University [facility] 00:00:00 [facility] Td 2020-05-20 Completed University of 00:00:00 [facility] Td 2020-05-20 Completed University of 00:00:00 [facility] Td 2020-05-20 Completed University of 00:00:00 [facility] Td 2020-05-20 Completed University of 00:00:00 [facility] Td 2020-05-20 Completed University of 00:00:00 [facility] TD, NOS 2020-05-20 Completed University of 00:00:00 [facility] TD, NOS 2020-05-20 Completed University of 00:00:00 [facility] TD, NOS 2020-05-20 Completed University of 00:00:00 [facility] TD, NOS 2020-05-20 Completed University of 00:00:00 [facility] TD, NOS 2020-05-20 Completed University of 00:00:00 [facility] Vital Signs Vital Name Observation Time Observation Value Comments Source Systolic blood 2022-12-29 08:31:00 105 mm[Hg] Univer sity of pressure [facility] Diastolic blood 2022-12-29 08:31:00 53 mm[Hg] Unive rsity of pressure [facility] Heart rate 2022-12-29 08:31:00 113 /min [facility] Body temperature 2022-12-29 08:31:00 37.72 Althea Univ ersity [facility] Respiratory rate 2022-12-29 08:31:00 20 /[facility] in 2022-12-29 08:31:00 96 /min [place] of Arterial blood by [facility] Pulse oximetry Branch Body height 2022-12-29 01:11:00 182.9 cm [facility] Body weight 2022-12-29 01:11:00 69.4 kg [facility] BMI 2022-12-29 01:11:00 20.75 kg/m2 [facility] Systolic blood 2022-10-11 16:56:00 132 mm[Hg] Univer sity of pressure [facility] Diastolic blood 2022-10-11 16:56:00 52 mm[Hg] Unive rsity of pressure [facility] Heart rate 2022-10-11 16:56:00 74 /min [facility] Body temperature 2022-10-11 16:56:00 36.17 Althea [facility] Respiratory rate 2022-10-11 16:56:00 15 /min [facility] Oxygen saturation in 2022-10-11 16:56:00 98 /min University of Arterial blood by [place] [employer] Pulse oximetry Branch Body weight 2022-10-11 08:38:00 69.491 kg [facility] BMI 2022-10-11 08:38:00 20.78 kg/m2 [facility] Body height 2022-10-09 17:01:00 182.9 cm [facility] Systolic blood 2022-10-08 08:00:00 147 mm[Hg] Univer sity of [facility] Diastolic blood 2022-10-08 08:00:00 57 mm[Hg] Unive rsity [facility] Heart rate 2022-10-08 08:00:00 79 /min [facility] Respiratory rate 2022-10-08 08:00:00 22 /min [facility] Oxygen saturation in 2022-10-08 08:00:00 100 /min University of Arterial blood by [employer] P[facility] oxim[facility] Branch Body temperature 2022-10-08 04:14:11 37 Althea [facility] Systolic blood 2022-07-30 06:31:00 149 mm[Hg] Univer sity of pressure [facility] Diastolic blood 2022-07-30 06:31:00 61 mm[Hg] Unive rsity of [facility] Heart rate 2022-07-30 06:31:00 69 /min [facility] Respiratory rate 2022-07-30 06:31:00 17 /min [facility] Oxygen saturation in 2022-07-30 06:31:00 100 /min University of Arterial blood by [facility] Pulse oximetry Branch Body temperature 2022-07-30 04:06:00 37.06 Althea [facility] Body height 2022-07-30 04:06:00 182.9 cm [facility] Body weight 2022-07-30 04:06:00 75.751 kg [facility] BMI 2022-07-30 04:06:00 22.65 kg/m2 [facility] Systolic blood 2022-07-14 17:59:00 119 mm[Hg] Univer sity of [facility] Diastolic blood 2022-07-14 17:59:00 49 mm[Hg] Unive rsity of pressure [facility] Heart rate 2022-07-14 17:59:00 73 /min [facility] Body temperature 2022-07-14 17:59:00 36.39 Althea [facility] Respiratory rate 2022-07-14 17:59:00 18 /min [facility] Oxygen saturation in 2022-07-14 17:59:00 98 /min University of Arterial blood by [facility] Pulse oximetry Branch Body weight 2022-07-14 09:57:00 71.986 kg [facility] BMI 2022-07-14 09:57:00 21.52 kg/m2 [facility] Body height 2022-07-14 03:07:00 182.9 cm [facility] Systolic blood 2022-06-09 05:00:00 157 mm[Hg] Univer [facility]ity [facility] Diastolic blood 2022-06-09 05:00:00 74 mm[Hg] Unive rsity of pressure [facility] Heart rate 2022-06-09 05:00:00 68 /min [facility] Respiratory rate 2022-06-09 05:00:00 17 /min [facility] Oxygen saturation in 2022-06-09 05:00:00 99 /min University of Arterial blood by [place] [employer] Pulse oximetry Branch Body temperature 2022-06-09 03:48:00 36.5 Althea [facility] Body height 2022-06-09 03:48:00 182.9 cm [facility] Body weight 2022-06-09 03:48:00 74.844 kg [facility] BMI 2022-06-09 03:48:00 22.38 kg/m2 [facility] Systolic blood 2022-05-02 15:14:00 129 mm[Hg] Univer sity of [facility] Diastolic blood 2022-05-02 15:14:00 50 mm[Hg] Unive rsity of pressure [facility] Heart rate 2022-05-02 15:14:00 71 /min [facility] Body temperature 2022-05-02 15:14:00 36.56 Althea [facility] Respiratory rate 2022-05-02 15:14:00 16 /min [facility] Oxygen saturation in 2022-05-02 15:14:00 96 /min University of Arterial blood by [place] [employer] P[facility] oxim[facility] Branch Body weight 2022-05-01 16:34:00 72.8 kg [facility] BMI 2022-05-01 16:34:00 21.77 kg/m2 [facility] Body height 2022-04-26 06:47:00 182.9 cm [facility] Systolic blood 2020-05-20 19:00:00 175 mm[Hg] Univer sity of [facility] Diastolic blood 2020-05-20 19:00:00 78 mm[Hg] Unive rsity of pressure [facility] Heart rate 2020-05-20 19:00:00 68 /min [facility] Respiratory rate 2020-05-20 19:00:00 18 /min [facility] Oxygen saturation in 2020-05-20 19:00:00 99 /min University [facility] Arterial blood by [place] [employer] [facility] P[facility] oxim[facility] Branch Body temperature 2020-05-20 17:34:00 37.33 Althea [facility] Body weight 2020-05-20 17:34:00 85.276 kg [facility] BMI 2020-05-20 17:34:00 25.50 kg/m2 [facility] Procedures Procedure Date / Time Performing Clinician Source Performed CT ABDOMEN PELVIS W 2022-12-29 05:04:35 Cuca Trinh [facility] CONTRAST [facility] CT CHEST PULMONARY 2022-12-29 05:04:35 Cuca Trinh [facility] ANGIOGRAM Medical Branch COVID-19 (ID NOW RAPID 2022-12-29 02:02:00 Cuca Trinh [facility] TESTING) [facility] BLOOD CULTURE SCREEN 2022-12-29 01:55:[address] [facility] TROPONIN I 2022-12-29 01:55:00 Cuca Trinh [facility] FREE T4 2022-12-29 01:55:00 Cuca Trinh [facility] THYROID STIMULATING 2022-12-29 01:55:00 Cuca Trinh [facility] HORMONE [facility] COMP. METABOLIC PANEL 2022-12-29 01:55:00 Cuca Trinh [facility] ([id number]) [facility] CBC WITH DIFF 2022-12-29 01:55:00 Cuca Trinh [facility] LACTIC ACID WHOLE BLOOD 2022-12-29 01:55:00 Cuca Trinh [facility] BLOOD CULTURE SCREEN 2022-12-29 01:30:[address] [facility] CONSENT/REFUSAL FOR 2022-12-29 00:53:24 Doctor Unassigned, No Un [facility] DIAGNOSIS AND TREATMENT Name [facility] HB ECG ROUTINE & RHYTHM 2022-10-11 12:40:56 Randee Steve [facility] STRIP [facility] TROPONIN I 2022-10-11 10:45:00 Ranede Steve [facility] BASIC METABOLIC PANEL 2022-10-11 10:45:00 Randee Steve [facility] (NA, K, CL, CO2, GLUCOSE, Medica l Branch BUN, CREATININE, CA) CBC WITH DIFF 2022-10-11 10:45:00 [facility] 2022-10-11 06:36:59 Wyatt [facility] HEPATITIS B SURFACE 2022-10-10 19:10:00 Rosa M Ruth [facility] ANTIBODY [facility] HEPATITIS B SURFACE 2022-10-10 19:10:00 Rosa M Ruth [facility] ANTIGEN [facility] MRSA / MSSA SCREEN BY 2022-10-10 10:35:00 Rosa M Ruth [facility] PCR, NARES [facility] PHOSPHORUS 2022-10-10 10:32:00 Zachary [facility] MAGNESIUM 2022-10-10 10:32:00 Zachary [facility] BASIC METABOLIC PANEL 2022-10-10 10:32:00 Randee Steve [facility] (NA, K, CL, CO2, GLUCOSE, Medica l Branch BUN, CREATININE, CA) CBC WITH DIFF 2022-10-10 10:32:00 Zachary [facility] XR ABDOMEN 2 VW 2022-10-09 13:43:22 Joe [facility] PHOSPHORUS 2022-10-09 13:18:00 Joe [facility] LIPASE 2022-10-09 13:18:00 Zachary [facility] MAGNESIUM 2022-10-09 13:18:00 Joe [facility] TROPONIN I 2022-10-09 13:18:00 Joe [facility] FREE T4 2022-10-09 13:18:00 Zachary [facility] THYROID STIMULATING 2022-10-09 13:18:00 Randee Steve [facility] HORMONE [facility] COMP. METABOLIC PANEL 2022-10-09 13:18:00 Macario Diaz [facility] ([id number]) [facility] CBC WITH DIFF 2022-10-09 13:18:00 Joe [facility] CONSENT/REFUSAL FOR 2022-10-09 12:48:55 [facility]igned, [facility] Name Medical Branch COMP. METABOLIC PANEL 2022-10-08 05:01:00 Rianna Gomez [facility] ([id number]) Medical Branch CBC WITH DIFF 2022-10-08 05:01:00 Rianna Gomez [facility] NOTICE OF PRIVACY 2022-10-08 04:06:01 Doctor Unassigned, No [facility] PRACTICES Name Medical Branch CONSENT/REFUSAL FOR 2022-10-08 04:05:24 [facility]igned, No [facility] Name Medical Branch LIPASE 2022-07-30 05:24:00 Iavnia Mehta [facility] TROPONIN I 2022-07-30 05:24:00 Ivania Mehta [facility] COMP. METABOLIC PANEL 2022-07-30 05:24:00 Ivania Mehta [facility] ([id number]) [facility] [place] XR CHEST 1 VW 2022-07-30 05:10:00 Ivania Mehta [facility] CT HEAD WO CONTRAST 2022-07-30 04:45:[address] [facility] EKG-12 LEAD 2022-07-30 04:26:37 Ivania Mehta [facility] CBC WITH DIFF 2022-07-30 04:24:00 Ivania Mehta [facility] RAPID INFLUENZA A/B 2022-07-30 04:24:[address] [facility] RAPID RSV 2022-07-30 04:24:00 Ivania Mehta [facility] COVID-19 (ID NOW RAPID 2022-07-30 04:24:00 Ivania Mehta [facility] TESTING) Medical Branch BASIC METABOLIC PANEL 2022-07-14 10:39:00 [facility] (NA, K, CL, CO2, GLUCOSE, Medica l Branch BUN, CREATININE, CA) CBC WITH DIFF 2022-07-14 10:39:00 [facility] [place] [facility] RAPID STREP SCREEN FOR 2022-07-14 10:39:00 Wyatt [facility] GROUP A Medical Branch RESPIRATORY PANEL BY PCR 2022-07-14 10:39:00 [facility]W 2022-07-13 23:39:58 Cuca Trinh [facility] LACTIC ACID WHOLE BLOOD 2022-07-13 22:44:00 Cuca Trinh [facility] BLOOD CULTURE SCREEN 2022-07-13 22:43:00 Cuca Trinh [facility] 2022-07-13 22:43:00 Cuca Trinh [facility] MAGNESIUM 2022-07-13 22:43:00 Cuca Trinh [facility] TROPONIN I 2022-07-13 22:43:00 Cuca Trinh [facility] COMP. METABOLIC PANEL 2022-07-13 22:43:00 Cuca Trinh [facility] ([id number]) [facility] [place] CBC WITH DIFF 2022-07-13 22:43:00 Cuca Trinh [facility] PROTHROMBIN TIME / INR 2022-07-13 22:43:00 Cuca Trinh [facility] ACTIVATED PARTIAL 2022-07-13 22:43:00 Cuca Trinh [facility] THRMPLAS [facility] RAPID INFLUENZA A/B 2022-07-13 22:43:00 Cuca Trinh [facility] N-TERMINAL PRO-BNP 2022-07-13 22:43:00 Cuca Trinh [facility] COVID-19 (ID NOW RAPID 2022-07-13 22:43:00 Cuca Trinh [facility] TESTING) Medical Branch EKG-12 LEAD 2022-07-13 22:40:27 Cuca Trinh [facility] BASIC METABOLIC PANEL 2022-06-09 04:22:00 Aaliyah Sorto [facility] (NA, K, CL, CO2, GLUCOSE, Medica l Branch BUN, CREATININE, CA) CBC WITH DIFF 2022-06-09 04:22:00 Aaliyah Sorto [facility] NOTICE OF PRIVACY 2022-06-09 03:39:27 Doctor Unassigned, No [facility] PRACTICES Name Medical Branch CONSENT/REFUSAL FOR 2022-06-09 03:38:52 Doctor Unassigned, No Un [facility] DIAGNOSIS AND TREATMENT Name Medical Branch XR KUB 2022-05-02 16:00:00 Amy [facility] POCT GLUCOSE (AUTOMATED) 2022-05-02 15:17:00 Tesunil [facility] POCT GLUCOSE (AUTOMATED) 2022-05-02 00:58:00 Tesunil [facility] POCT GLUCOSE (AUTOMATED) 2022-05-01 17:40:00 Teqwranda [facility] POCT GLUCOSE (AUTOMATED) 2022-05-01 13:54:00 Tesunil [facility] BASIC METABOLIC PANEL 2022-05-01 09:44:00 Amy [facility] (NA, K, CL, CO2, GLUCOSE, Medica l Branch BUN, CREATININE, CA) CBC WITH DIFF 2022-05-01 09:44:00 Amy [facility] POCT GLUCOSE (AUTOMATED) 2022-05-01 02:55:00 Amy [facility] POCT GLUCOSE (AUTOMATED) 2022-04-29 21:19:00 MoGianluca aguilar [facility] POCT GLUCOSE (AUTOMATED) 2022-04-29 16:28:00 Gianluca Alba [facility] PHOSPHORUS 2022-04-29 13:05:00 Zafar, [facility] MAGNESIUM 2022-04-29 13:05:00 Zafar, [facility] BASIC METABOLIC PANEL 2022-04-29 13:05:00 Zafar [facility] (NA, K, CL, CO2, GLUCOSE, Medica l Branch BUN, CREATININE, CA) CBC WITH DIFF 2022-04-29 13:05:00 Zafar [facility] POCT GLUCOSE (AUTOMATED) 2022-04-29 13:04:00 MoGianluca aguilar [facility] POCT GLUCOSE (AUTOMATED) 2022-04-29 00:56:00 MoGianluca aguilar [facility] POCT GLUCOSE (AUTOMATED) 2022-04-28 22:49:00 Anjali [facility] TRANSTHORACIC ECHO (TTE) 2022-04-28 20:08:00 Dominik Stephen [facility] COMPLETE [facility] POCT GLUCOSE (AUTOMATED) 2022-04-28 17:16:00 Moulin [facility] POCT GLUCOSE (AUTOMATED) 2022-04-28 13:23:00 MoulinGianluca [facility] MAGNESIUM 2022-04-28 07:20:00 [facility] BASIC METABOLIC PANEL 2022-04-28 07:20:[address] [facility] (NA, K, CL, CO2, GLUCOSE, Medica l Branch BUN, CREATININE, CA) CBC WITH DIFF 2022-04-28 07:20:00 Dennis [facility] MAGNESIUM 2022-04-27 22:09:00 [facility] BASIC METABOLIC PANEL 2022-04-27 22:09:00 Yamil [facility] (NA, K, CL, CO2, GLUCOSE, Medica l Branch BUN, CREATININE, CA) CBC WITH DIFF 2022-04-27 22:09:00 Dominik Stephen [facility] PREPARE PACKED RBC 2022-04-27 18:47:23 Dominik Stephen [facility] ABORH CONFIRMATION (LAB 2022-04-27 15:09:00 Marielle [facility] ONLY) [facility] HB ABO GROUPING 2022-04-27 13:35:[address] [facility] PHOSPHORUS 2022-04-27 11:24:00 Mindy [facility] MAGNESIUM 2022-04-27 11:24:00 Mindy [facility] THYROID STIMULATING 2022-04-27 11:24:00 Dominik Stephen [facility] HORMONE [facility] BASIC METABOLIC PANEL 2022-04-27 11:24:00 Radha Guillen [facility] (NA, K, CL, CO2, GLUCOSE, Medica l Branch BUN, CREATININE, CA) CBC WITH DIFF 2022-04-27 11:24:00 [facility]W 2022-04-27 11:15:00 Mindy [facility] POCT GLUCOSE (AUTOMATED) 2022-04-27 09:29:00 MoulinGianluca [facility] PHOSPHORUS 2022-04-27 05:38:00 [place], [facility] MAGNESIUM 2022-04-27 05:38:00 [place], [facility] BASIC METABOLIC PANEL 2022-04-27 05:38:[address] [facility] (NA, K, CL, CO2, GLUCOSE, Medica l Branch BUN, CREATININE, CA) CBC WITH DIFF 2022-04-27 05:38:00 [place], [facility] POCT GLUCOSE (AUTOMATED) 2022-04-27 03:49:00 [place], [facility] POCT GLUCOSE (AUTOMATED) 2022-04-26 23:28:00 [place], [facility] POCT GLUCOSE (AUTOMATED) 2022-04-26 23:06:00 [place], [facility] POCT GLUCOSE (AUTOMATED) 2022-04-26 22:49:00 [place], [facility] POCT GLUCOSE (AUTOMATED) 2022-04-26 22:34:00 [place], Gianluca [facility] 2022-04-26 20:11:00 Radha Guillen [facility] MAGNESIUM 2022-04-26 20:11:00 Mindy [facility] BASIC METABOLIC PANEL 2022-04-26 20:11:00 [facility] (NA, K, CL, CO2, GLUCOSE, Medica l Branch BUN, CREATININE, CA) CBC WITH DIFF 2022-04-26 20:11:00 Radha Guillen [facility] MRSA / MSSA SCREEN BY 2022-04-26 20:11:00 Gianluca Alba [facility] PCR, NARES [facility] POCT GLUCOSE (AUTOMATED) 2022-04-26 16:41:00 Gianluca Alba [facility] HEPATITIS B SURFACE 2022-04-26 15:50:00 Stanley Patiño [facility] ANTIBODY [facility] HEPATITIS B SURFACE 2022-04-26 15:50:00 Stanley Patiño [facility] ANTIGEN [facility] POCT GLUCOSE (AUTOMATED) 2022-04-26 11:51:00 Gianluca Alba [facility] BASIC METABOLIC PANEL 2022-04-26 09:41:00 Aaliyah Sorto [facility] (NA, K, CL, CO2, GLUCOSE, Medica l Branch BUN, CREATININE, CA) POCT GLUCOSE(AGE >30DAYS) 2022-04-26 09:41:00 [facility] POCT GLUCOSE (AUTOMATED) 2022-04-26 09:37:00 [facility]LO[facility] 2022-04-26 08:04:00 Aaliyah Sorto [facility] GAS [facility] POCT GLUCOSE (AUTOMATED) 2022-04-26 07:48:00 Aaliyah Sorto [facility] POCT GLUCOSE(AGE >30DAYS) 2022-04-26 07:47:00 Aaliyah [facility] HB ECG ROUTINE & RHYTHM 2022-04-26 07:40:27 Aaliyah Sorto [facility] XR CHEST 1 VW 2022-04-26 07:19:00 Aaliyah Sorto [facility] LIPASE 2022-04-26 06:55:00 Aaliyah Sorto [facility] TROPONIN I 2022-04-26 06:55:00 Aaliyah Sorto [facility] COMP. METABOLIC PANEL 2022-04-26 06:55:00 Aaliyah Sorto [facility] ([id number]) Medical Branch CBC WITH DIFF 2022-04-26 06:55:00 Aaliyah Sorto [facility] GLYCOSYLATED HEMOGLOBIN 2022-04-26 06:55:00 Sampson Sparks [facility] (A1C) Medical Branch RAPID INFLUENZA A/B 2022-04-26 06:55:[address] [facility] N-TERMINAL PRO-BNP 2022-04-26 06:55:00 Aaliyah Sorto [facility] COVID-19 (ID NOW RAPID 2022-04-26 06:55:00 Aaliyah Sorto [facility] TESTING) Medical Branch LAB ONLY COVID 2022-04-26 06:55:00 Aaliyah Sorto [facility] INTERPRETATION [facility] EKG-12 LEAD 2022-04-26 06:53:29 Aaliyah Sorto [facility] EMERGENCY DEPARTMENT 2022-04-26 05:01:00 Doctor Unassigned, No [facility] H[facility] ADMISSION 2022-04-26 05:01:00 Doctor Unassigned, No Uni versity [facility] CT CERVICAL SPINE WO 2020-05-20 18:51:43 Gina Cotton [facility] CONTRAST [facility] CT HEAD WO CONTRAST 2020-05-20 18:51:43 Gina Cotton [facility] CONSENT/REFUSAL FOR 2020-05-20 17:26:43 Doctor Unassigned, No Un [facility] DIAGNOSIS AND TREATMENT [facility] NOTICE OF PRIVACY 2020-05-20 17:26:25 Doctor Unassigned, No [facility] PRACTICES [facility] Plan of Care Planned Activity Planned Date Details Comments Source Future Scheduled 2022-11-04 COVID-19 VACCINE (#1) [facility] Test 21:21:03 [code = COVID-19 VACCINE (#1)] Future Scheduled 2022-11-04 SHINGLES VACCINES (1 Met [facility] Test 21:21:03 of 2) [code = SHINGLES VACCINES (1 of 2)] Future Scheduled 2022-11-04 65+ [facility]OCOCCAL [facility] Test 21:21:03 VACCINE (1 - PCV) [code = 65+ PNEUMOCOCCAL VACCINE (1 - PCV)] Future Scheduled 2022-11-04 INFLUENZA VACCINE [facility] Test 21:21:03 [code = INFLUENZA VACCINE] Future Scheduled 2022-11-04 COVID-19 VACCINE (#1) [facility] Test 21:21:03 [code = COVID-19 VACCINE (#1)] Future Scheduled 2022-11-04 SHINGLES VACCINES (1 Met [facility] Test 21:21:03 of 2) [code = SHINGLES VACCINES (1 of 2)] Future Scheduled 2022-11-04 65+ P[facility]UMOCOCCAL [facility] Test 21:21:03 VACCINE (1 - PCV) [code = 65+ PNEUMOCOCCAL VACCINE (1 - PCV)] Future Scheduled 2022-11-04 INFLUENZA VACCINE [facility] Test 21:21:03 [code = INFLUENZA VACCINE] Future Scheduled 2022-10-29 COVID-19 VACCINE (#1) [facility] Test 08:39:55 [code = COVID-19 VACCINE (#1)] Future Scheduled 2022-10-29 SHINGLES VACCINES (1 Met [facility] Test 08:39:55 of 2) [code = SHINGLES VACCINES (1 of 2)] Future Scheduled 2022-10-29 65+ PNEUMOCOCCAL [facility] Test 08:39:55 VACCINE (1 - PCV) [code = 65+ PNEUMOCOCCAL VACCINE (1 - PCV)] Future Scheduled 2022-10-29 INFLUENZA VACCINE [facility] Test 08:39:55 [code = INFLUENZA VACCINE] Future Scheduled 2022-10-14 COVID-19 VACCINE (#1) [facility] Test 09:22:18 [code = COVID-19 VACCINE (#1)] Future Scheduled 2022-10-14 SHINGLES VACCINES (1 Met [facility] Test 09:22:18 of 2) [code = SHINGLES VACCINES (1 of 2)] Future Scheduled 2022-10-14 65+ PNEUMOCOCCAL [facility] Test 09:22:18 VACCINE (1 - PCV) [code = 65+ PNEUMOCOCCAL VACCINE (1 - PCV)] Future Scheduled 2022-10-14 INFLUENZA VACCINE [facility] Test 09:22:18 [code = INFLUENZA VACCINE] Future Scheduled 2022-10-14 COVID-19 VACCINE (#1) [facility] Test 09:22:18 [code = COVID-19 VACCINE (#1)] Future Scheduled 2022-10-14 SHINGLES VACCINES (1 Met [facility] Test 09:22:18 of 2) [code = SHINGLES VACCINES (1 of 2)] Future Scheduled 2022-10-14 65+ PNEUMOCOCCAL [facility] Test 09:22:18 VACCINE (1 - PCV) [code = 65+ PNEUMOCOCCAL VACCINE (1 - PCV)] Future Scheduled 2022-10-14 INFLUENZA VACCINE [facility] Test 09:22:18 [code = INFLUENZA VACCINE] Future Scheduled 2022-05-20 HEPATITIS B VACCINES [facility] Test 12:12:16 (1 of 3 - 3-dose series) [code = HEPATITIS B VACCINES (1 of 3 - 3-dose series)] Future Scheduled 2022-05-20 COVID-19 VACCINE (#1) [facility] Test 12:12:16 [code = COVID-19 VACCINE (#1)] Future Scheduled 2022-05-20 65+ P[facility]UMOCOCCAL [facility] Test 12:12:16 VACCINE (1 - PCV) [code = 65+ PNEUMOCOCCAL VACCINE (1 - PCV)] Future Scheduled 2022-05-20 DIABETES: RETINAL EYE [facility] Test 12:12:16 EXAM [code = DIABETES: RETINAL EYE EXAM] Future Scheduled 2022-05-20 DIABETIC FOOT EXAM [facility] Test 12:12:16 [code = DIABETIC FOOT EXAM] Future Scheduled 2022-05-20 URINE MICROALBUMIN [facility] Test 12:12:16 [code = URINE MICROALBUMIN] Future Scheduled 2022-05-20 Hepatitis C screening [facility] Test 12:12:16 (procedure) [code = 666373898] Future Scheduled 2022-05-20 SHINGLES VACCINES (1 Met [facility] Test 12:12:16 of 2) [code = SHINGLES VACCINES (1 of 2)] Future Scheduled 2022-05-20 INFLUENZA VACCINE [facility] Test 12:12:16 [code = INFLUENZA VACCINE] Encounters Start End Encounter Admission Attending Care Care Encounter Source Date/Time Date/Time Type Type Clinicians Facility Department ID 2021-05-30 Emergency [facility] [id number] Univers 23:43:30 ity of [facility] 2022-12-28 2022-12-29 Emergency X JOSE [facility] ERT [id number] Univers 20:13:00 03:46:00 WAKILI ity of [facility] 2022-12-28 2022-12-29 Emergency Cuca Trinh [facility] 1.2.840. 114 [id number] Univers 20:13:00 03:46:00 Aaliyah Sorto [place] 350.1.13.10 ity of [facility] 4.2.7.2.686 [place] [facility] [id number] [facility] [address] 2022-10-13 2022-10-13 Transition TARA Armstrong 1.2.840.114 [id number] Univers 00:00:00 00:00:00 of Raissa Zuletaet KENTRE[place] 350.1.13.10 it y of [place] 4.2.7.2.686 [facility] [id number] [facility] [address] 2022-10-09 2022-10-11 Outpatient [facility] [place] [id number] Univers 06:40:00 15:14:00 RANDEE ity of [facility] 2022-10-09 2022-10-11 Emergency Macario Diaz [facility] 1.2.840 .114 [id number] Univers 06:40:00 15:14:00 Randee Steve 350.1.13.10 ity of [facility] 4.2.7.2.686 [facility] [id number] [place] 046921 Branch 2022-10-07 2022-10-08 Emergency X RIDDLE, [facility] ERT [id number] Univers 22:08:00 02:30:00 CHRISTCANDISER it y of [facility] 2022-10-07 2022-10-08 Emergency [place], [facility] [id number] Univers 22:08:00 02:30:00 Christchaparrita VELAZQUEZ 350.1.13.10 ity of [facility] 4.2.7.2.686 [place] [id number] [place] 046924 Branch 2022-07-29 2022-07-30 Emergency [facility] [id number] Univers 22:02:00 00:48:00 IVANIA itautumn [facility] 2022-07-29 2022-07-30 Emergency [facility] [id number] Univers 22:02:00 00:48:00 Ivania CIDJOCE 350.1.13.10 ity of [facility] 4.2.7.2.686 [facility] [id number] [facility] [address] [place] 2022-07-15 2022-07-15 Transition TARA Noel 1.2.840.114 [id number] Univers 00:00:00 00:00:00 of Care Quyen PFEIFFER 350.1.13.10 i ty of [place] 4.2.7.2.686 [facility] [id number] [facility] [address] [place] 2022-07-13 2022-07-14 Inpatient X WYATT [facility] [place] [id number] Univers 16:33:00 18:12:00 CARLTON harris [facility] 2022-07-13 2022-07-14 [facility] Cuca Trinh [facility] 1.2.840.1 [id number] Univers 16:33:00 18:12:00 Encounter Carlton Schneider MARCUS 350.1.13.10 ity of [facility] 4.2.7.2.686 [facility] [id number] [address] 2022-06-08 2022-06-09 Emergency X JOSE [facility] ERT [id number] Univers 21:55:00 01:36:00 ANTHONYHAYLEELI ity [facility] 2022-06-08 2022-06-09 Emergency [facility] [id number] Univers 21:55:00 01:36:00 Aaliyah Guidry JOSE ROBERTOJOCE 350.1.13.10 ity of [facility] 4.2.7.2.686 [facility] [phone] [place] 0469[address] [place] 2022-05-04 2022-05-04 Transition TARA Armstrong 1.2.840.114 [id number] Univers 00:00:00 00:00:00 of Care Rosaline PFEIFFER 350.1.13.10 it y of [place] 4.2.7.2.686 [facility] [id number] [facility] [address] 2022-04-26 2022-05-02 Inpatient U AMY [facility] [place] [id number] Univers 01:43:00 15:39:00 STEVE ity of [facility] 2022-04-26 2022-05-02 Hospital Anjali Gianluca [facility] 1.2.840.11 [id number] Univers 01:43:00 15:39:00 Encounter Sampson Sparks [facility] 350.1.13.10 ity of NurisSteve lindsay [place] 4.2.7.2.686 [facility] [phone] [facility] [address] ([facility]) 2020-11-07 2020-11-07 Outpatient Ilan LIVINGSTON [facility] [id number] Univers 16:00:00 16:00:00 ZURDO ity [facility] 2020-11-07 2020-11-07 Outpatient [facility] [id number] Univers 09:30:00 09:30:00 ity of [facility] 2020-10-16 2020-10-16 Outpatient [facility] [id number] Univers 09:30:00 09:30:00 ity [facility] 2020-05-20 2020-05-20 Emergency [facility] 1.2.840.114 [id number] Univers 12:30:00 14:38:00 Gina Velazquez 350.1.13.10 ity of [place] 4.2.7.2.686 [facility] [id number] [place] 046924 Branch 2019-08-07 2019-08-07 Outpatient [facility] [id number] [place] [address] 00:00:00 00:00:00 ARABELLA Dinero Method i st Results Test Description Test Time Test Comments Results Result Comments Source THYROID STIMULATING HORMONE 2022-12-29 03:10:20 Test Item Value Reference Range Interpretation Comme nts TSH (test code = 1122578259) 1.91 See_Comment [Automated message] The system which generated this result transmitted ref erence range: 0.45 - 4.70 mIU/L. T he reference range was not used to interpret this result as shantell l/abnormal. Lab Interpretation (test code = Normal 83706-0) [id number] 02[facility]56:43 Test Item Value Reference Range Interpretation Comments FREE T4 (test code = 1.62 See_Comment [Autom ated message] [id number]) The system [employer] generated this result transmitted ref erence range: 0.78 - 2 .20 ng/dL:. The ref erence range was not u sed to interpret this result as normal/abnor mal. Lab Interpretation (test Normal code = 39139-9) [facility] [id number] 02:51:42 Test Item Value Reference Range Interpretation Comments TROPONIN I (test code = 0.073 ng/mL <=0.034 H [id number]) TAMARA (test code = TAMARA) Reference (Normal) [...] biotin. Lab Interpretation Abnormal (test code = 44322-5) [facility] WITH [id number] 02:40:02 Test Item Value Reference Range Interpretation Comments WBC (test code = 6.48 See_Comment [Automated 3525-2) message] The sy stem which generated this result transmitted reference range : 4.20 - 10.70 10*3/?L. The reference range was not used to interpret this result as normal/abnormal . RBC (test code = 4.38 See_Comment [Automated 626-7) message] The sy stem which generated this result transmitted reference range : 4.26 - 5.52 10*6/?L. The reference range was not used to interpret this result as normal/abnormal . HGB (test code = 12.6 g/dL 12.2-16.4 718-7) HCT (test code = 39.5 % 38.4-49.3 4544-3) MCV (test code = 90.2 fL 81.7-95.6 787-2) MCH (test code = 28.8 pg 26.1-32.7 785-6) MCHC (test code = 31.9 g/dL 31.2-35.0 786-4) RDW-SD (test code = 64.4 fL 38.5-51.6 H 68123-8) RDW-CV (test code = 19.9 % 12.1-15.4 H 788-0) PLT (test code = 104 See_Comment L [Automated 777-3) message] The sy stem which generated this result transmitted reference range : 150 - 328 10*3/ ?L. The reference r carroll was not used to interpret this result as normal/abnormal . MPV (test code = 12.7 fL 9.8-13.0 18385-5) IPF % (test code = 7.4 % 1.2-10.7 Platelet count 3547802527) measured by fluorescence method. NRBC/100 WBC (test 0.0 See_Comment [Automat ed code = 4204046435) message] The system which generated this result transmitted reference range : 0.0 - 10.0 /100 WBCs. The refer ence range was not u sed to interpret th is result as normal/abnormal . NRBC x10^3 (test code See_Comment [Auto mated = 1167746444) message] The s ystem which generated this result transmitted reference range : 10*3/?L. The reference range was not used to interpret this result as normal/abnormal . GRAN MAT (NEUT) % 70.3 % (test code = 770-8) IMM GRAN % (test code 0.50 % = 8386187043) LYMPH % (test code = 17.9 % 736-9) MONO % (test code = 8.8 % 5905-5) EOS % (test code = 1.9 % 713-8) BASO % (test code = 0.6 % 706-2) GRAN MAT x10^3(ANC) 4.56 10*3/uL 1.99-6.95 (test code = 4666532717) IMM GRAN x10^3 (test 0.03 10*3/uL 0.00-0.06 code = 3840658200) LYMPH x10^3 (test code 1.16 10*3/uL 1.09-3.23 = 731-0) MONO x10^3 (test code 0.57 10*3/uL 0.36-1.02 = 742-7) EOS x10^3 (test code = 0.12 10*3/uL 0.06-0.53 711-2) BASO x10^3 (test code 0.04 10*3/uL 0.01-0.09 = 704-7) Lab Interpretation Abnormal (test code = 67587-6) [facility]. METABOLIC PANEL (65848)2022-12-29 02:40:02 Test Item Value Reference Range Interpretation Comments NA (test code = 139 mmol/L 135-145 4651232808) K (test code = 4.2 mmol/L 3.5-5.0 0701411074) CL (test code = 96 mmol/L 98-108 L 5127813358) CO2 TOTAL (test code = 29 mmol/L 23-31 0187728829) AGAP (test code = 14 2-16 1760366815) BUN (test code = 39 mg/dL 7-23 H 6167337295) GLUCOSE (test code = 91 mg/dL 70-110 1123803292) CREATININE (test code = 4.45 mg/dL 0.60-1.25 H 0584500397) TOTAL BILI (test code = 1.3 mg/dL 0.1-1.1 H 4244004230) CALCIUM (test code = 8.4 mg/dL 8.6-10.6 L 1268267810) T PROTEIN (test code = 7.9 g/dL 6.3-8.2 4669507238) ALBUMIN (test code = 4.0 g/dL 3.5-5.0 3206489996) ALK PHOS (test code = 94 U/L 34-122 2713141783) ALTv (test code = 22 U/L 5-50 1742-6) AST(SGOT) (test code = 25 U/L 13-40 5349772292) eGFR (test code = 12.9 mL/min/1.73m2 8251937401) TAMARA (test code = TAMARA) Association of [...] tests). Lab Interpretation Abnormal (test code = 01508-5) [facility]2022-10-11 05:11:30 Test Item Value Reference Range Interpretation Comments HBsAB (test code = Positive 0153975241) HBsAb 45.90 mIU/mL Semi-Quantitative (test code = 5088990401) TAMARA (test code = Interpretation: TAMARA) ?Hepatitis B Surface Antibody ? Negative - Patient is considered to be not immune to infection with HBV. ? ? Positive - Anti-HBs detected at greater than or equal to 12 mIU/mL. ?Patient is considered to be immune to infection with HBV. ? [facility] B Surface Antigen (HBsAg)2022-10-10 23:31:12 Test Item Value Reference Range Interpretation Comments HBsAg Semi-Quantitative (test code = 0.08 Negative 5195-3) [facility] with [id number] 11:30:53 Test Item Value Reference Range Interpretation [...] (test code = 69.0 fL 38.5-51.6 H 72882-4) RDW-CV (test code = 20.6 % 12.1-15.4 H 788-0) PLT (test code = 155 See_Comment [Automated 777-3) message] The sy stem which generated this result transmitted reference range : 150 - 328 10*3/ ?L. The reference r carroll was not used to interpret this result as normal/abnormal . MPV (test code = 11.9 fL 9.8-13.0 84178-9) NRBC/100 WBC (test 0.5 See_Comment [Automat ed code = 3324713542) message] The system which generated this result transmitted reference range : 0.0 - 10.0 /100 WBCs. The refer ence range was not u sed to interpret th is result as normal/abnormal . NRBC x10^3 (test code 0.03 See_Comment [Auto mated = 3951050710) message] The s ystem which generated this result transmitted reference range : 10*3/?L. The reference range was not used to interpret this result as normal/abnormal . GRAN MAT (NEUT) % 54.4 % (test code = 770-8) IMM GRAN % (test code 0.50 % = 6727645399) LYMPH % (test code = 35.9 % 736-9) MONO % (test code = 6.0 % 5905-5) EOS % (test code = 2.3 % 713-8) BASO % (test code = 0.9 % 706-2) GRAN MAT x10^3(ANC) 3.63 10*3/uL 1.99-6.95 (test code = 7134748085) IMM GRAN x10^3 (test 0.03 10*3/uL 0.00-0.06 code = 4395246516) LYMPH x10^3 (test code 2.39 10*3/uL 1.09-3.23 = 731-0) MONO x10^3 (test code 0.40 10*3/uL 0.36-1.02 = 742-7) EOS x10^3 (test code = 0.15 10*3/uL 0.06-0.53 711-2) BASO x10^3 (test code 0.06 10*3/uL 0.01-0.09 = 704-7) Lab Interpretation Abnormal (test code = 20619-5) [facility] [id number] 19:50:17 Test Item Value Reference Range Interpretation Comments TSH (test code = 3.64 See_Comment Biotin has been 8003974747) reported to cau se a negative bias, interpret resul ts relative to pat ient's use of biotin. [Automated mess age] The system [employer] generated this result transmitted ref erence range: 0.45 - 4 .70 mIU/L. The refe rence range was not u sed to interpret this result as normal/abnor mal. Lab Interpretation (test Normal code = 21426-1) [facility] [id number] 19:31:35 Test Item Value Reference Range Interpretation Comments FREE T4 (test code = 1.58 See_Comment [Autom ated message] 3401462512) The system [employer] generated this result transmitted ref erence range: 0.78 - 2 .20 ng/dL:. The ref erence range was not u sed to interpret this result as normal/abnor mal. Lab Interpretation (test Normal code = 78352-4) [facility]2023-[facility] 16:01:13 Test Item Value Reference Range Interpretation Comments LIPASE (test code = 2050526817) 336 U/L 0-220 H Lab Interpretation (test code = Abnormal 56497-5) [facility] [id number] 14:32:17 Test Item Value Reference Range Interpretation Comments TROPONIN I (test code = 0.071 ng/mL <=0.034 H 8826093583) TAMARA (test code = TAMARA) Reference (Normal) [...] biotin. Lab Interpretation Abnormal (test code = 85512-5) [facility] METABOLIC PANEL (92030)2022-10-09 14:21:00 Test Item Value Reference Range Interpretation Comments NA (test code = 142 mmol/L 135-145 4646654092) K (test code = 4.9 mmol/L 3.5-5.0 2520074653) CL (test code = 101 mmol/L 98-108 0046499967) CO2 TOTAL (test code = 27 mmol/L 23-31 8466572319) AGAP (test code = 14 2-16 7800014420) BUN (test code = 56 mg/dL 7-23 H 9794199378) GLUCOSE (test code = 117 mg/dL 70-110 H 0997501925) CREATININE (test code = 6.62 mg/dL 0.60-1.25 H 2735351949) TOTAL BILI (test code = 0.8 mg/dL 0.1-1.7 0982314791) CALCIUM (test code = 8.3 mg/dL 8.6-10.6 L 5749022267) T PROTEIN (test code = 8.3 g/dL 6.3-8.2 H 8257463291) ALBUMIN (test code = 4.1 g/dL 3.5-5.0 3589364898) ALK PHOS (test code = 83 U/L 34-122 1232783253) ALTv (test code = 15 U/L 5-50 1742-6) AST(SGOT) (test code = 20 U/L 13-40 5033163333) eGFR (test code = 8.2 mL/min/1.73m2 3094564217) TAMARA (test code = TAMARA) Association of [...] tests). Lab Interpretation Abnormal (test code = 30045-9) [facility] 14:21:00 Test Item Value Reference Range Interpretation Comments MAGNESIUM (test code = 0225226501) 1.9 mg/dL 1.7-2.4 Lab Interpretation (test code = Normal 95872-2) [facility]2023-[facility]-10 14:20:39 Test Item Value Reference Range Interpretation Comments PHOSPHORUS (test code = 4997728840) 6.7 mg/dL 2.5-5.0 H Lab Interpretation (test code = Abnormal 30774-6) [facility] WITH [id number] 14:09:37 Test Item Value Reference Range Interpretation Comments WBC (test code = 6.79 See_Comment [Automated 6690-2) message] The sy stem which generated this result transmitted reference range : 4.20 - 10.70 10*3/?L. The reference range was not used to interpret this result as normal/abnormal . RBC (test code = 3.83 See_Comment L [Automated 789-8) message] The sy [...] (test code = 71.1 fL 38.5-51.6 H 07011-9) RDW-CV (test code = 20.2 % 12.1-15.4 H 788-0) PLT (test code = 149 See_Comment L [Automated 777-3) message] The sy stem which generated this result transmitted reference range : 150 - 328 10*3/ ?L. The reference r carroll was not used to interpret this result as normal/abnormal . MPV (test code = 12.6 fL 9.8-13.0 22937-7) IPF % (test code = 6.6 % 1.2-10.7 Platelet count 0275719786) measured by fluorescence method. NRBC/100 WBC (test 0.3 See_Comment [Automat ed code = 4918834064) message] The system which generated this result transmitted reference range : 0.0 - 10.0 /100 WBCs. The refer ence range was not u sed to interpret th is result as normal/abnormal . NRBC x10^3 (test code 0.02 See_Comment [Auto mated = 1314759362) message] The s ystem which generated this result transmitted reference range : 10*3/?L. The reference range was not used to interpret this result as normal/abnormal . GRAN MAT (NEUT) % 61.6 % (test code = 770-8) IMM GRAN % (test code 0.60 % = 2423896027) LYMPH % (test code = 26.2 % 736-9) MONO % (test code = 8.2 % 5905-5) EOS % (test code = 2.8 % 713-8) BASO % (test code = 0.6 % 706-2) GRAN MAT x10^3(ANC) 4.18 10*3/uL 1.99-6.95 (test code = 8739534006) IMM GRAN x10^3 (test 0.04 10*3/uL 0.00-0.06 code = 7983413957) LYMPH x10^3 (test code 1.78 10*3/uL 1.09-3.23 = 731-0) MONO x10^3 (test code 0.56 10*3/uL 0.36-1.02 = 742-7) EOS x10^3 (test code = 0.19 10*3/uL 0.06-0.53 711-2) BASO x10^3 (test code 0.04 10*3/uL 0.01-0.09 = 704-7) Lab Interpretation Abnormal (test code = 77863-9) [facility] WITH [id number] 06:13:11 Test Item Value Reference Range Interpretation [...] (test code = 67.6 fL 38.5-51.6 H 58265-2) RDW-CV (test code = 19.7 % 12.1-15.4 H 788-0) PLT (test code = 109 See_Comment L [Automated 777-3) message] The sy stem which generated this result transmitted reference range : 150 - 328 10*3/ ?L. The reference r carroll was not used to interpret this result as normal/abnormal . MPV (test code = 12.4 fL 9.8-13.0 12512-5) IPF % (test code = 6.7 % 1.2-10.7 Platelet count 6607149347) measured by fluorescence method. NRBC/100 WBC (test 0.0 See_Comment [Automat ed code = 3637112057) message] The system which generated this result transmitted reference range : 0.0 - 10.0 /100 WBCs. The refer ence range was not u sed to interpret th is result as normal/abnormal . NRBC x10^3 (test code See_Comment [Auto mated = 0151191574) message] The s ystem which generated this result transmitted reference range : 10*3/?L. The reference range was not used to interpret this result as normal/abnormal . GRAN MAT (NEUT) % 61.3 % (test code = 770-8) IMM GRAN % (test code 0.50 % = 1130640372) LYMPH % (test code = 25.8 % 736-9) MONO % (test code = 9.0 % 5905-5) EOS % (test code = 2.8 % 713-8) BASO % (test code = 0.6 % 706-2) GRAN MAT x10^3(ANC) 3.98 10*3/uL 1.99-6.95 (test code = 8569675079) IMM GRAN x10^3 (test 0.03 10*3/uL 0.00-0.06 code = 6375514626) LYMPH x10^3 (test code 1.67 10*3/uL 1.09-3.23 = 731-0) MONO x10^3 (test code 0.58 10*3/uL 0.36-1.02 = 742-7) EOS x10^3 (test code = 0.18 10*3/uL 0.06-0.53 711-2) BASO x10^3 (test code 0.04 10*3/uL 0.01-0.09 = 704-7) Lab Interpretation Abnormal (test code = 00593-7) [facility]. METABOLIC PANEL (25118)2022-10-08 05:26:45 Test Item Value Reference Range Interpretation Comments NA (test code = 138 mmol/L 135-145 [id number]) K (test code = 4.1 mmol/L 3.5-5.0 3081926309) CL (test code = 100 mmol/L 98-108 5364958847) CO2 TOTAL (test code = 29 mmol/L 23-31 2630136185) AGAP (test code = 9 2-16 4655499355) BUN (test code = 31 mg/dL 7-23 H 4708445104) GLUCOSE (test code = 103 mg/dL 70-110 8261440989) CREATININE (test code = 4.25 mg/dL 0.60-1.25 H 5071062298) TOTAL BILI (test code = 0.9 mg/dL 0.1-1.0 1267603837) CALCIUM (test code = 8.2 mg/dL 8.6-10.6 L 4753638381) T PROTEIN (test code = 7.7 g/dL 6.3-8.2 9479757639) ALBUMIN (test code = 3.6 g/dL 3.5-5.0 0589831966) ALK PHOS (test code = 72 U/L 34-122 7839420395) ALTv (test code = 15 U/L 5-50 1742-6) AST(SGOT) (test code = 17 U/L 13-40 8329350426) eGFR (test code = 13.6 mL/min/1.73m2 4747805158) TAMARA (test code = TAMARA) Association of [...] tests). Lab Interpretation Abnormal (test code = 60447-7) [id number] 06:03:10 Test Item Value Reference Interpretation Comments Range TROPONIN I (test 0.072 ng/mL See_Comment H [Automated code = 3581681210) message] The system which generated this result [...] biotin. Lab Interpretation Abnormal (test code = 23625-3) [facility]. METABOLIC PANEL (67501)2022-07-30 05:51:28 Test Item Value Reference Range Interpretation Comments NA (test code = 138 mmol/L 135-145 1773486949) K (test code = 4.4 mmol/L 3.5-5.0 1761391562) CL (test code = 98 mmol/L 98-108 6466862203) CO2 TOTAL (test code = 33 mmol/L 23-31 H 8465809488) AGAP (test code = 2-16 6080900535) BUN (test code = 35 mg/dL 7-23 H 7676990178) GLUCOSE (test code = 87 mg/dL 70-110 0325352474) CREATININE (test code = 4.56 mg/dL 0.60-1.25 H 0761875014) TOTAL BILI (test code = 0.8 mg/dL 0.1-1.4 7669641753) CALCIUM (test code = 7.7 mg/dL 8.6-10.6 L 8891209328) T PROTEIN (test code = 7.5 g/dL 6.3-8.2 5779879106) ALBUMIN (test code = 3.3 g/dL 3.5-5.0 L 7333719164) ALK PHOS (test code = 78 U/L 34-122 5340388143) ALTv (test code = 16 U/L 5-50 1742-6) AST(SGOT) (test code = 27 U/L 13-40 1884659775) eGFR (test code = mL/min/1.73m2 5772112403) TAMARA (test code = TAMARA) Association of [...] tests). Lab Interpretation Abnormal (test code = 81568-1) [facility]51[facility]07 Test Item Value Reference Range Interpretation Comments LIPASE (test code = 9679264569) 126 U/L 0-220 Lab Interpretation (test code = Normal 77720-5) [facility] [id number] 04:48:28 Test Item Value Reference Range Interpretation Comments WBC (test code = See_Comment [Automated 5790-2) message] The sy stem which generated this [...] (test code = 61.8 fL 38.5-51.6 H 75018-9) RDW-CV (test code = 18.7 % 12.1-15.4 H 788-0) PLT (test code = See_Comment [Automated 777-3) message] The sy stem which generated this result transmitted reference range : 150 - 328 10*3/ ?L. The reference r carroll was not used to interpret this result as normal/abnormal . MPV (test code = 11.4 fL 9.8-13.0 18324-7) NRBC/100 WBC (test See_Comment [Automat ed code = 7180331181) message] The system which generated this result transmitted reference range : 0.0 - 10.0 /100 WBCs. The refer ence range was not u sed to interpret th is result as normal/abnormal . NRBC x10^3 (test code See_Comment [Auto mated = 2991072437) message] The s ystem which generated this result transmitted reference range : 10*3/?L. The reference range was not used to interpret this result as normal/abnormal . GRAN MAT (NEUT) % 67.3 % (test code = 770-8) IMM GRAN % (test code 0.80 % = 5291455932) LYMPH % (test code = 21.7 % 736-9) MONO % (test code = 7.9 % 5905-5) EOS % (test code = 1.7 % 713-8) BASO % (test code = 0.6 % 706-2) GRAN MAT x10^3(ANC) 5.19 10*3/uL 1.99-6.95 (test code = 8778490974) IMM GRAN x10^3 (test 0.06 10*3/uL 0.00-0.06 code = 2554655536) LYMPH x10^3 (test code 1.67 10*3/uL 1.09-3.23 = 731-0) MONO x10^3 (test code 0.61 10*3/uL 0.36-1.02 = 742-7) EOS x10^3 (test code = 0.13 10*3/uL 0.06-0.53 711-2) BASO x10^3 (test code 0.05 10*3/uL 0.01-0.09 = 704-7) Lab Interpretation Abnormal (test code = 62756-9) [facility] Metabolic Panel (NA, K, CL, CO2, GLUCOSE, BUN, CREATININE, CA)2022-07-14 12:37:43 Test Item Value Reference Range Interpretation Comments NA (test code = 141 mmol/L 135-145 2420769304) K (test code = 4.7 mmol/L 3.5-5.0 6127623345) CL (test code = 98 mmol/L 98-108 4513667827) CO2 TOTAL (test code = 34 mmol/L 23-31 H 9404060283) AGAP (test code = 2-16 2742241564) BUN (test code = 41 mg/dL 7-23 H 3115269539) GLUCOSE (test code = 80 mg/dL 70-110 3168311512) CREATININE (test code = 5.92 mg/dL 0.60-1.25 H 5858828117) CALCIUM (test code = 7.4 mg/dL 8.6-10.6 L 6079161448) eGFR (test code = mL/min/1.73m2 6017858569) TAMARA (test code = TAMARA) Association of [...] tests). Lab Interpretation Abnormal (test code = 67384-9) [facility] with [id number] 11:21:54 Test Item Value Reference Range Interpretation Comments WBC (test code = See_Comment [Automated 8264-2) message] The sy stem which generated this result transmitted reference range : 4.20 - 10.70 10*3/?L. The reference range was not used to interpret this result as normal/abnormal . RBC (test code = See_Comment L [Automated 117-8) message] The sy stem which generated this [...] (test code = 60.0 fL 38.5-51.6 H 75533-8) RDW-CV (test code = 17.4 % 12.1-15.4 H 788-0) PLT (test code = See_Comment [Automated 777-3) message] The sy stem which generated this result transmitted reference range : 150 - 328 10*3/ ?L. The reference r carroll was not used to interpret this result as normal/abnormal . MPV (test code = 12.0 fL 9.8-13.0 84599-1) NRBC/100 WBC (test See_Comment [Automat ed code = 3313276812) message] The system which generated this result transmitted reference range : 0.0 - 10.0 /100 WBCs. The refer ence range was not u sed to interpret th is result as normal/abnormal . NRBC x10^3 (test code See_Comment [Auto mated = 5392117414) message] The s ystem which generated this result transmitted reference range : 10*3/?L. The reference range was not used to interpret this result as normal/abnormal . GRAN MAT (NEUT) % 56.7 % (test code = 770-8) IMM GRAN % (test code 0.80 % = 1203170575) LYMPH % (test code = 27.0 % 736-9) MONO % (test code = 11.8 % 5905-5) EOS % (test code = 2.9 % 713-8) BASO % (test code = 0.8 % 706-2) GRAN MAT x10^3(ANC) 2.92 10*3/uL 1.99-6.95 (test code = 8476102258) IMM GRAN x10^3 (test 0.04 10*3/uL 0.00-0.06 code = 9890190518) LYMPH x10^3 (test code 1.39 10*3/uL 1.09-3.23 = 731-0) MONO x10^3 (test code 0.61 10*3/uL 0.36-1.02 = 742-7) EOS x10^3 (test code = 0.15 10*3/uL 0.06-0.53 711-2) BASO x10^3 (test code 0.04 10*3/uL 0.01-0.09 = 704-7) Lab Interpretation Abnormal (test code = 95038-7) [facility] METABOLIC PANEL (NA, K, CL, CO2, GLUCOSE, BUN, CREATININE, CA)2022-06-09 04:48:27 Test Item Value Reference Range Interpretation Comments NA (test code = 139 mmol/L 135-145 0684800089) K (test code = 5.6 mmol/L 3.5-5.0 H 1256790161) CL (test code = 101 mmol/L 98-108 3804047511) CO2 TOTAL (test code = 29 mmol/L 23-31 8394134022) AGAP (test code = 2-16 7941592053) BUN (test code = 44 mg/dL 7-23 H 1426348281) GLUCOSE (test code = 76 mg/dL 70-110 7115907684) CREATININE (test code = 5.68 mg/dL 0.60-1.25 H 1329509753) CALCIUM (test code = 8.2 mg/dL 8.6-10.6 L 1345731045) eGFR (test code = mL/min/1.73m2 6504323345) TAMARA (test code = TAMARA) Association of [...] tests). Lab Interpretation Abnormal (test code = 90624-2) [facility] WITH [id number] 04:34:03 Test Item Value Reference Range Interpretation [...] (test code = 61.2 fL 38.5-51.6 H 78248-4) RDW-CV (test code = 17.8 % 12.1-15.4 H 788-0) PLT (test code = See_Comment L [Automated 777-3) message] The sy stem which generated this result transmitted reference range : 150 - 328 10*3/ ?L. The reference r carroll was not used to interpret this result as normal/abnormal . MPV (test code = 11.7 fL 9.8-13.0 94188-6) NRBC/100 WBC (test See_Comment [Automat ed code = 1080031839) message] The system which generated this result transmitted reference range : 0.0 - 10.0 /100 WBCs. The refer ence range was not u sed to interpret th is result as normal/abnormal . NRBC x10^3 (test code See_Comment [Auto mated = 9345378645) message] The s ystem which generated this result transmitted reference range : 10*3/?L. The reference range was not used to interpret this result as normal/abnormal . GRAN MAT (NEUT) % 61.1 % (test code = 770-8) IMM GRAN % (test code 0.30 % = 0331896070) LYMPH % (test code = 27.2 % 736-9) MONO % (test code = 7.5 % 5905-5) EOS % (test code = 3.3 % 713-8) BASO % (test code = 0.6 % 706-2) GRAN MAT x10^3(ANC) 4.30 10*3/uL 1.99-6.95 (test code = 6548343693) IMM GRAN x10^3 (test 0.00-0.06 code = 4517522567) LYMPH x10^3 (test code 1.91 10*3/uL 1.09-3.23 = 731-0) MONO x10^3 (test code 0.53 10*3/uL 0.36-1.02 = 742-7) EOS x10^3 (test code = 0.23 10*3/uL 0.06-0.53 711-2) BASO x10^3 (test code 0.04 10*3/uL 0.01-0.09 = 704-7) Lab Interpretation Abnormal (test code = 84051-2) [facility] GLUCOSE (AUTOMATED)2022-05-02 15:18:16 Test Item Value Reference Range Interpretation Comments POCT GLU (test code = 7954321592) 115 mg/dL 70-110 H Lab Interpretation (test code = Abnormal 48223-1) [facility] GLUCOSE (AUTOMATED)2022-05-02 01:07:47 Test Item Value Reference Range Interpretation Comments POCT GLU (test code = 1156106384) 159 mg/dL 70-110 H Lab Interpretation (test code = Abnormal 55661-6) [facility] GLUCOSE (AUTOMATED)2022-05-01 17:45:26 Test Item Value Reference Range Interpretation Comments POCT GLU (test code = 9395138422) 86 mg/dL 70-110 Lab Interpretation (test code = Normal 10103-0) [facility] GLUCOSE (AUTOMATED)2022-05-01 13:56:04 Test Item Value Reference Range Interpretation Comments POCT GLU (test code = 7295164198) 80 mg/dL 70-110 Lab Interpretation (test code = Normal 17848-2) [facility] METABOLIC PANEL (NA, K, CL, CO2, GLUCOSE, BUN, CREATININE, CA)2022-05-01 10:44:43 Test Item Value Reference Range Interpretation Comments NA (test code = 137 mmol/L 135-145 8340055096) K (test code = 5.0 mmol/L 3.5-5 1859712741) CL (test code = 101 mmol/L 98-108 1126080007) CO2 TOTAL (test code = 25 mmol/L 23-31 0319377169) AGAP (test code = 2-16 4353885875) BUN (test code = 44 mg/dL 7-23 H 2002511809) GLUCOSE (test code = 81 mg/dL 70-110 2717270996) CREATININE (test code = 7.45 mg/dL 0.6-1.25 H 5437724071) CALCIUM (test code = 9.4 mg/dL 8.6-10.6 4928335433) eGFR (test code = mL/min/1.73m2 8004761292) TAMARA (test code = TAMARA) Association of [...] tests). Lab Interpretation Abnormal (test code = 52769-0) [facility] WITH [id number] 10:07:39 Test Item Value Reference Range Interpretation [...] (test code = 62.7 fL 38.5-51.6 H 45041-5) RDW-CV (test code = 18.4 % 12.1-15.4 H 788-0) PLT (test code = See_Comment L [Automated 777-3) message] The sy stem which generated this result transmitted reference range : 150 - 328 10*3/ ?L. The reference r carroll was not used to interpret this result as normal/abnormal . MPV (test code = 10.6 fL 9.8-13 67469-2) NRBC/100 WBC (test See_Comment [Automat ed code = 0411661151) message] The system which generated this result transmitted reference range : 0.0 - 10.0 /100 WBCs. The refer ence range was not u sed to interpret th is result as normal/abnormal . NRBC x10^3 (test code See_Comment [Auto mated = 1596192372) message] The s ystem which generated this result transmitted reference range : 10*3/?L. The reference range was not used to interpret this result as normal/abnormal . GRAN MAT (NEUT) % 56.5 % (test code = 770-8) IMM GRAN % (test code 0.30 % = 7906410563) LYMPH % (test code = 27.6 % 736-9) MONO % (test code = 9.1 % 5905-5) EOS % (test code = 5.9 % 713-8) BASO % (test code = 0.6 % 706-2) GRAN MAT x10^3(ANC) 4.92 10*3/uL 1.99-6.95 (test code = 9274274364) IMM GRAN x10^3 (test 0.03 10*3/uL 0-0.06 code = 1511859469) LYMPH x10^3 (test code 2.40 10*3/uL 1.09-3.23 = 731-0) MONO x10^3 (test code 0.79 10*3/uL 0.36-1.02 = 742-7) EOS x10^3 (test code = 0.51 10*3/uL 0.06-0.53 711-2) BASO x10^3 (test code 0.05 10*3/uL 0.01-0.09 = 704-7) Lab Interpretation Abnormal (test code = 53972-1) [facility] GLUCOSE (AUTOMATED)2022-05-01 02:56:18 Test Item Value Reference Range Interpretation Comments POCT GLU (test code = 1134563359) 95 mg/dL 70-110 Lab Interpretation (test code = Normal 53382-9) [facility] GLUCOSE (AUTOMATED)2022-04-29 21:27:56 Test Item Value Reference Range Interpretation Comments POCT GLU (test code = 2001749095) 98 mg/dL 70-110 Lab Interpretation (test code = Normal 22738-8) [facility] GLUCOSE (AUTOMATED)2022-04-29 16:43:50 Test Item Value Reference Range Interpretation Comments POCT GLU (test code = 5625259404) 94 mg/dL 70-110 Lab Interpretation (test code = Normal 37932-6) [facility] METABOLIC PANEL (NA, K, CL, CO2, GLUCOSE, BUN, CREATININE, CA)2022-04-29 13:33:55 Test Item Value Reference Range Interpretation Comments NA (test code = 137 mmol/L 135-145 6837546688) K (test code = 4.7 mmol/L 3.5-5 6154619969) CL (test code = 100 mmol/L 98-108 8742035135) CO2 TOTAL (test code = 28 mmol/L 23-31 1667843336) AGAP (test code = 2-16 0830934540) BUN (test code = 37 mg/dL 7-23 H 4814420592) GLUCOSE (test code = 87 mg/dL 70-110 3520802810) CREATININE (test code = 5.74 mg/dL 0.6-1.25 H 8244623878) CALCIUM (test code = 9.0 mg/dL 8.6-10.6 9814194589) eGFR (test code = mL/min/1.73m2 2339290862) TAMARA (test code = TAMARA) Association of [...] tests). Lab Interpretation Abnormal (test code = 63309-3) [facility] 13:33:55 Test Item Value Reference Range Interpretation Comments MAGNESIUM (test code = 9403115343) 1.7 mg/dL 1.7-2.4 Lab Interpretation (test code = Normal 32262-4) [facility] 13:33:55 Test Item Value Reference Range Interpretation Comments PHOSPHORUS (test code = 1551836754) 5.9 mg/dL 2.5-5 H Lab Interpretation (test code = Abnormal 07196-6) [facility] [id number] 13:25:56 Test Item Value Reference Range Interpretation Comments WBC (test code = See_Comment [Automated 7998-2) message] The sy stem which generated this result transmitted reference range : 4.20 - 10.70 10*3/?L. The reference range was not used to interpret this result as normal/abnormal . RBC (test code = See_Comment L [Automated 942-8) message] The sy stem which generated this [...] (test code = 63.2 fL 38.5-51.6 H 83339-6) RDW-CV (test code = 18.7 % 12.1-15.4 H 788-0) PLT (test code = See_Comment L [Automated 777-3) message] The sy stem which generated this result transmitted reference range : 150 - 328 10*3/ ?L. The reference r carroll was not used to interpret this result as normal/abnormal . MPV (test code = 11.2 fL 9.8-13 94642-5) NRBC/100 WBC (test See_Comment [Automat ed code = 3114304222) message] The system which generated this result transmitted reference range : 0.0 - 10.0 /100 WBCs. The refer ence range was not u sed to interpret th is result as normal/abnormal . NRBC x10^3 (test code See_Comment [Auto mated = 8831833430) message] The s ystem which generated this result transmitted reference range : 10*3/?L. The reference range was not used to interpret this result as normal/abnormal . GRAN MAT (NEUT) % 59.0 % (test code = 770-8) IMM GRAN % (test code 0.50 % = 0846994777) LYMPH % (test code = 25.3 % 736-9) MONO % (test code = 9.1 % 5905-5) EOS % (test code = 5.6 % 713-8) BASO % (test code = 0.5 % 706-2) GRAN MAT x10^3(ANC) 4.29 10*3/uL 1.99-6.95 (test code = 3976350756) IMM GRAN x10^3 (test 0.04 10*3/uL 0-0.06 code = 6158396168) LYMPH x10^3 (test code 1.84 10*3/uL 1.09-3.23 = 731-0) MONO x10^3 (test code 0.66 10*3/uL 0.36-1.02 = 742-7) EOS x10^3 (test code = 0.41 10*3/uL 0.06-0.53 711-2) BASO x10^3 (test code 0.04 10*3/uL 0.01-0.09 = 704-7) Lab Interpretation Abnormal (test code = 11595-2) [facility] GLUCOSE (AUTOMATED)2022-04-29 13:08:57 Test Item Value Reference Range Interpretation Comments POCT GLU (test code = 9304349922) 83 mg/dL 70-110 Lab Interpretation (test code = Normal 22536-1) [facility] GLUCOSE (AUTOMATED)2022-04-29 00:57:51 Test Item Value Reference Range Interpretation Comments POCT GLU (test code = 116 mg/dL 70-110 H Notifi ed Provider 0737437245) Lab Interpretation (test Abnormal code = 51736-7) [facility] GLUCOSE (AUTOMATED)2022-04-28 22:51:23 Test Item Value Reference Range Interpretation Comments POCT GLU (test code = 3377637628) 141 mg/dL 70-110 H Lab Interpretation (test code = Abnormal 71542-7) [facility]28 21:22:21 Test Item Value Reference Range Interpretation Comments Height (test code = in 0710351157) Weight (test code = lbs 8523180425) Systolic BP (test code mmHg = 9394790085) Diastolic BP (test code mmHg = 5475865374) Heart Rate (test code = bpm 9949677666) BSA (test code = 2.04 m2 1449711083) Ao root diam (test code 3.50 cm = 6169184496) Aortic root (test code 3.5 cm = 0914557930) Ao root annulus (test 3.5 cm code = 0844173290) LA size (test code = 3.9 cm 2375972036) LVOT diameter (test 1.99 cm code = 0713113567) LVOT area (test code = 3.10 cm2 2798836089) LVIDD (test code = 5.50 cm 2507701403) Left Ventricular End 149.2 mL Diastolic Volume by Teichholz Method (test code = 6963420) IVS (test code = 0.86 cm 0962153914) Interventricular Septum 0.86 cm Diastolic Thickness by 2D (test code = 7397620) LVPWD (test code = 0.89 cm 6483550532) PW (test code = 0.89 cm 0.6-1.5 3032051514) EF(Teich) (test code = 50.30 % 2346510132) LVIDS (test code = 4.10 cm 5642763644) Left Ventricular End 74.2 mL Systolic Volume by Teichholz Method (test code = 1061279) FS (test code = 26 % 8902049289) EF - 2D (test code = 50.30 % 36688722) MV valve area p 1/2 4.10 cm2 method (test code = 8021090499) MV dec slope (test code 721.90 cm/s2 = 6868371134) MV P1/2t max talha (test 133.30 cm/s code = 7059574659) MV Peak E Talha (test 135.0 cm/s code = 2384718208) MV Peak A Talha (test 143.1 cm/s code = 9437331938) E/A ratio (test code = ratio 9635634065) MV Prop V (test code = 73.20 cm/s 0384537557) Tapse (test code = 3.2 cm 0074850532) MV E/e' septal (test 7.4 cm/s code = 5328765979) LVOT stroke volume 64.20 cm3 (test code = 7612275169) LVOT peak talha (test 95.1 cm/s code = 5789656569) LVOT mn grad (test code mmHg = 4607535903) AV LVOT peak gradient mmHg (test code = 1609029440) LVOT peak VTI (test 20.6 cm code = 9859615053) LV V1 mean (test code = 62.50 cm/s 5530748589) Aortic valve mean 263.9 cm/s velocity (test code = 8011084944) Ao peak talha (test code 370.1 cm/s = 3074802728) Ao VTI (test code = 89.5 cm 1712542026) AV area by cont VTI 0.7 cm2 (test code = 3554315920) AV area peak talha (test 0.8 cm2 code = 6475111206) Ao max PG (test code = 54.80 mm[Hg] 3299509407) AV peak gradient (test mmHg code = 6480907671) AV valve area (test 0.72 cm2 code = 6691394411) AV mean gradient (test mmHg code = 8598062108) AV regurgitation 548.9 ms pressure 1/2 time (test code = 9568489367) AI dec slope (test code 198.80 cm/s2 = 0262029110) AI max talha (test code = 372.70 cm/s 6682441554) AI max PG (test code = 55.50 mm[Hg] 3934265970) Radiology Study observation (narrative) (test code = 64250-1) TAMARA (test code = TAMARA) ?Right?Ventricle: Right [...] 2D, color flow Doppler and spectral Doppler. [facility] GLUCOSE (AUTOMATED)2022-04-28 17:19:26 Test Item Value Reference Range Interpretation Comments POCT GLU (test code = 3005795606) 80 mg/dL 70-110 Lab Interpretation (test code = Normal 98319-7) [facility] GLUCOSE (AUTOMATED)2022-04-28 13:25:30 Test Item Value Reference Range Interpretation Comments POCT GLU (test code = 8397621248) 98 mg/dL 70-110 Lab Interpretation (test code = Normal 53899-6) [facility] METABOLIC PANEL (NA, K, CL, CO2, GLUCOSE, BUN, CREATININE, CA)2022-04-28 07:58:12 Test Item Value Reference Range Interpretation Comments NA (test code = 136 mmol/L 135-145 6960715091) K (test code = 5.5 mmol/L 3.5-5 H 4251130456) CL (test code = 99 mmol/L 98-108 8975669072) CO2 TOTAL (test code = 30 mmol/L 23-31 3356371415) AGAP (test code = 2-16 7485420511) BUN (test code = 43 mg/dL 7-23 H 3594107412) GLUCOSE (test code = 84 mg/dL 70-110 2669919800) CREATININE (test code = 6.28 mg/dL 0.6-1.25 H 5334160862) CALCIUM (test code = 9.1 mg/dL 8.6-10.6 4440392812) eGFR (test code = mL/min/1.73m2 8597571138) TAMARA (test code = TAMARA) Association of [...] tests). Lab Interpretation Abnormal (test code = 35397-3) [facility] 07[facility]54:09 Test Item Value Reference Range Interpretation Comments MAGNESIUM (test code = 8997334609) 1.8 mg/dL 1.7-2.4 Lab Interpretation (test code = Normal 09226-6) [facility] WITH [id number] 07:40:46 Test Item Value Reference Range Interpretation Comments WBC (test code = See_Comment [Automated 2290-2) message] The sy stem which generated this result transmitted reference range : 4.20 - 10.70 10*3/?L. The reference range was not used to interpret this result as normal/abnormal . RBC (test code = See_Comment L [Automated 839-8) message] The sy stem which generated this [...] (test code = 64.6 fL 38.5-51.6 H 28610-6) RDW-CV (test code = 19.4 % 12.1-15.4 H 788-0) PLT (test code = See_Comment L [Automated 777-3) message] The sy stem which generated this result transmitted reference range : 150 - 328 10*3/ ?L. The reference r carroll was not used to interpret this result as normal/abnormal . MPV (test code = 10.9 fL 9.8-13 17972-1) NRBC/100 WBC (test See_Comment [Automat ed code = 0482460734) message] The system which generated this result transmitted reference range : 0.0 - 10.0 /100 WBCs. The refer ence range was not u sed to interpret th is result as normal/abnormal . NRBC x10^3 (test code See_Comment [Auto mated = 5274007659) message] The s ystem which generated this result transmitted reference range : 10*3/?L. The reference range was not used to interpret this result as normal/abnormal . GRAN MAT (NEUT) % 47.9 % (test code = 770-8) IMM GRAN % (test code 0.10 % = 7977488815) LYMPH % (test code = 38.9 % 736-9) MONO % (test code = 8.6 % 5905-5) EOS % (test code = 3.8 % 713-8) BASO % (test code = 0.7 % 706-2) GRAN MAT x10^3(ANC) 3.38 10*3/uL 1.99-6.95 (test code = 1068893848) IMM GRAN x10^3 (test 0-0.06 code = 4629870614) LYMPH x10^3 (test code 2.75 10*3/uL 1.09-3.23 = 731-0) MONO x10^3 (test code 0.61 10*3/uL 0.36-1.02 = 742-7) EOS x10^3 (test code = 0.27 10*3/uL 0.06-0.53 711-2) BASO x10^3 (test code 0.05 10*3/uL 0.01-0.09 = 704-7) Lab Interpretation Abnormal (test code = 43963-2) [facility] METABOLIC PANEL (NA, K, CL, CO2, GLUCOSE, BUN, CREATININE, CA)2022-04-27 22:46:00 Test Item Value Reference Range Interpretation Comments NA (test code = 133 mmol/L 135-145 L 1365167240) K (test code = 5.3 mmol/L 3.5-5 H 9098712773) CL (test code = 97 mmol/L 98-108 L 1512966483) CO2 TOTAL (test code = 32 mmol/L 23-31 H 4160307013) AGAP (test code = 2-16 0576628599) BUN (test code = 36 mg/dL 7-23 H 3245109101) GLUCOSE (test code = 101 mg/dL 70-110 7498806387) CREATININE (test code = 5.26 mg/dL 0.6-1.25 H 5029724086) CALCIUM (test code = 9.4 mg/dL 8.6-10.6 2200920515) eGFR (test code = mL/min/1.73m2 6778400667) TAMARA (test code = TAMARA) Association of [...] tests). Lab Interpretation Abnormal (test code = 66472-6) [facility] Test Item Value Reference Range Interpretation Comments MAGNESIUM (test code = 3628020509) 1.7 mg/dL 1.7-2.4 Lab Interpretation (test code = Normal 44107-5) [facility] WITH UGVP9029-09-40 22:34:24 Test Item Value Reference Range Interpretation [...] (test code = 62.8 fL 38.5-51.6 H 50547-0) RDW-CV (test code = 19.3 % 12.1-15.4 H 788-0) PLT (test code = See_Comment L [Automated 777-3) message] The sy stem which generated this result transmitted reference range : 150 - 328 10*3/ ?L. The reference r carroll was not used to interpret this result as normal/abnormal . MPV (test code = 11.4 fL 9.8-13 77989-5) IPF % (test code = 4.9 % 1.2-10.7 Platelet count [id number]) measured by fluorescence method. NRBC/100 WBC (test See_Comment [Automat ed code = 8602192162) message] The system which generated this result transmitted reference range : 0.0 - 10.0 /100 WBCs. The refer ence range was not u sed to interpret th is result as normal/abnormal . NRBC x10^3 (test code See_Comment [Auto mated = 3430732566) message] The s ystem which generated this result transmitted reference range : 10*3/?L. The reference range was not used to interpret this result as normal/abnormal . GRAN MAT (NEUT) % 55.3 % (test code = 770-8) IMM GRAN % (test code 0.20 % = 4392365219) LYMPH % (test code = 34.6 % 736-9) MONO % (test code = 6.7 % 5905-5) EOS % (test code = 2.6 % 713-8) BASO % (test code = 0.6 % 706-2) GRAN MAT x10^3(ANC) 4.63 10*3/uL 1.99-6.95 (test code = 1556741049) IMM GRAN x10^3 (test 0-0.06 code = 4342441416) LYMPH x10^3 (test code 2.90 10*3/uL 1.09-3.23 = 731-0) MONO x10^3 (test code 0.56 10*3/uL 0.36-1.02 = 742-7) EOS x10^3 (test code = 0.22 10*3/uL 0.06-0.53 711-2) BASO x10^3 (test code 0.05 10*3/uL 0.01-0.09 = 704-7) Lab Interpretation Abnormal (test code = 79917-2) [facility] RBC (in units), 1 Units 2022-04-27 18:47:23 Test Item Value Reference Range Interpretation Comments Cross Match Result Compatible (test code = 4409) ISBT Blood Type Code (test code = 006504) Unit Blood Type (test B Pos code = 4410) Unit Number (test [id number] code = 4411) Blood Expiration Date & Time (test code = 689966) Status Information Issued (test code = 4412) Product Red Blood Cells Identification (test code = 4413) Product Code (test [id number] Performed at [facility] code = 4414) Laboratory Services - [facility] [address] [place], [place] [address]Wecd Free: [phone] A No. [id number] [facility] HospitalAB[facility]H Confirmation (Lab Only)2022-04-27 15:48:19 Test Item Value Reference Range Interpretation Comments ABO & RH (test code B Positive Performe d at [facility] = 20) Laboratory Serv [facility] [address] [place], [place] [address]Toll Free: [phone] 266CLIA No. [id number] [facility] HospitalType and Screen - ONCE [id number] 15:41:23 Test Item Value Reference Range Interpretation Comments ABO & RH (test code B Positive Performe d at [facility] = 20) Laboratory Serv [facility] [address] [place], [place] [address]Toll Free: [phone] 266CLIA No. [id number] IAT (test code = Negative Performed a t [facility] 1185) Laboratory [facility] [address] [place], [place] [address] 4Toll Free: [phone] 266CLIA No. [id number] [facility] HospitalTHYROID STIMULATING [id number] 14:48:29 Test Item Value Reference Range Interpretation Comments TSH (test code = See_Comment Biotin has been 3873294714) reported to cau se a negative bias, interpret resul ts relative to pat ient's use of biotin. [Automated mess age] The system [employer] generated this result transmitted ref erence range: 0.45 - 4 .70 mIU/L. The refe rence range was not u sed to interpret this result as normal/abnor mal. Lab Interpretation (test Normal code = 48410-0) [facility] METABOLIC PANEL (NA, K, CL, CO2, GLUCOSE, BUN, CREATININE, CA)2022-04-27 12:01:02 Test Item Value Reference Range Interpretation Comments NA (test code = 138 mmol/L 135-145 5288274487) K (test code = 7.1 mmol/L 3.5-5 HH 9677296231) CL (test code = 100 mmol/L 98-108 3251617220) CO2 TOTAL (test code = 31 mmol/L 23-31 9319325339) AGAP (test code = 2-16 7079544332) BUN (test code = 72 mg/dL 7-23 H 8437629130) GLUCOSE (test code = 90 mg/dL 70-110 1230926559) CREATININE (test code = 8.33 mg/dL 0.6-1.25 H 6547353178) CALCIUM (test code = 9.2 mg/dL 8.6-10.6 5880280915) eGFR (test code = mL/min/1.73m2 0257621096) TAMARA (test code = TAMARA) Association of [...] tests). Lab Interpretation Abnormal (test code = 90790-0) [facility]PH[facility]2022-09-26 11:58:34 Test Item Value Reference Range Interpretation Comments PHOSPHORUS (test code = 4807923949) 6.9 mg/dL 2.5-5 H Lab Interpretation (test code = Abnormal 00122-3) [facility] HospitalMAG[facility]2022-09-26 11:58:34 Test Item Value Reference Range Interpretation Comments MAGNESIUM (test code = 4783644111) 1.8 mg/dL 1.7-2.4 Lab Interpretation (test code = Normal 55610-9) [facility] HospitalCB WITH [id number] 11:31:33 Test Item Value Reference Range Interpretation [...] (test code = 64.8 fL 38.5-51.6 H 45191-9) RDW-CV (test code = 18.7 % 12.1-15.4 H 788-0) PLT (test code = See_Comment L [Automated 777-3) message] The sy stem which generated this result transmitted reference range : 150 - 328 10*3/ ?L. The reference r carroll was not used to interpret this result as normal/abnormal . MPV (test code = 11.2 fL 9.8-13 87556-2) NRBC/100 WBC (test See_Comment [Automat ed code = 5936099988) message] The system which generated this result transmitted reference range : 0.0 - 10.0 /100 WBCs. The refer ence range was not u sed to interpret th is result as normal/abnormal . NRBC x10^3 (test code See_Comment [Auto mated = 2184012578) message] The s ystem which generated this result transmitted reference range : 10*3/?L. The reference range was not used to interpret this result as normal/abnormal . GRAN MAT (NEUT) % 69.8 % (test code = 770-8) IMM GRAN % (test code 0.10 % = 0492008695) LYMPH % (test code = 21.4 % 736-9) MONO % (test code = 6.4 % 5905-5) EOS % (test code = 1.9 % 713-8) BASO % (test code = 0.4 % 706-2) GRAN MAT x10^3(ANC) 4.90 10*3/uL 1.99-6.95 (test code = 9024901524) IMM GRAN x10^3 (test 0-0.06 code = 4728761376) LYMPH x10^3 (test code 1.50 10*3/uL 1.09-3.23 = 731-0) MONO x10^3 (test code 0.45 10*3/uL 0.36-1.02 = 742-7) EOS x10^3 (test code = 0.13 10*3/uL 0.06-0.53 711-2) BASO x10^3 (test code 0.03 10*3/uL 0.01-0.09 = 704-7) Lab Interpretation Abnormal (test code = 06158-8) [facility] GLUCOSE (AUTOMATED)2022-04-27 09:30:35 Test Item Value Reference Range Interpretation Comments POCT GLU (test code = 5000736527) 107 mg/dL 70-110 Lab Interpretation (test code = Normal 56601-8) [facility] METABOLIC PANEL (NA, K, CL, CO2, GLUCOSE, BUN, CREATININE, CA)2022-04-27 06:16:51 Test Item Value Reference Range Interpretation Comments NA (test code = 137 mmol/L 135-145 1263766957) K (test code = 6.7 mmol/L 3.5-5 HH 0026491126) CL (test code = 99 mmol/L 98-108 5747077952) CO2 TOTAL (test code = 29 mmol/L 23-31 4073889489) AGAP (test code = 2-16 4172102018) BUN (test code = 67 mg/dL 7-23 H 3609184150) GLUCOSE (test code = 75 mg/dL 70-110 9389157582) CREATININE (test code = 8.04 mg/dL 0.6-1.25 H 3899075887) CALCIUM (test code = 9.2 mg/dL 8.6-10.6 3516544235) eGFR (test code = mL/min/1.73m2 9013067902) TAMARA (test code = TAMARA) Association of [...] tests). Lab Interpretation Abnormal (test code = 68541-5) [facility]2022-[facility]-26 06:13:15 Test Item Value Reference Range Interpretation Comments MAGNESIUM (test code = 6942998481) 1.7 mg/dL 1.7-2.4 Lab Interpretation (test code = Normal 88529-0) [facility]2022-09-26 06:13:15 Test Item Value Reference Range Interpretation Comments PHOSPHORUS (test code = 9639361421) 6.8 mg/dL 2.5-5 H Lab Interpretation (test code = Abnormal 31684-6) [facility] WITH [id number] 05:45:33 Test Item Value Reference Range Interpretation [...] (test code = 64.2 fL 38.5-51.6 H 33565-5) RDW-CV (test code = 18.6 % 12.1-15.4 H 788-0) PLT (test code = See_Comment L [Automated 777-3) message] The sy stem which generated this result transmitted reference range : 150 - 328 10*3/ ?L. The reference r carroll was not used to interpret this result as normal/abnormal . MPV (test code = 11.5 fL 9.8-13 99589-9) NRBC/100 WBC (test See_Comment [Automat ed code = 6057196607) message] The system which generated this result transmitted reference range : 0.0 - 10.0 /100 WBCs. The refer ence range was not u sed to interpret th is result as normal/abnormal . NRBC x10^3 (test code See_Comment [Auto mated = 9459225454) message] The s ystem which generated this result transmitted reference range : 10*3/?L. The reference range was not used to interpret this result as normal/abnormal . GRAN MAT (NEUT) % 70.2 % (test code = 770-8) IMM GRAN % (test code 0.30 % = 6648463107) LYMPH % (test code = 21.2 % 736-9) MONO % (test code = 6.2 % 5905-5) EOS % (test code = 1.6 % 713-8) BASO % (test code = 0.5 % 706-2) GRAN MAT x10^3(ANC) 5.18 10*3/uL 1.99-6.95 (test code = 6332954118) IMM GRAN x10^3 (test 0-0.06 code = 7506402808) LYMPH x10^3 (test code 1.57 10*3/uL 1.09-3.23 = 731-0) MONO x10^3 (test code 0.46 10*3/uL 0.36-1.02 = 742-7) EOS x10^3 (test code = 0.12 10*3/uL 0.06-0.53 711-2) BASO x10^3 (test code 0.04 10*3/uL 0.01-0.09 = 704-7) Lab Interpretation Abnormal (test code = 63158-7) [facility] GLUCOSE (AUTOMATED)2022-04-27 03:50:48 Test Item Value Reference Range Interpretation Comments POCT GLU (test code = 0612357082) 85 mg/dL 70-110 Lab Interpretation (test code = Normal 13085-8) [facility] GLUCOSE (AUTOMATED)2022-04-26 23:31:15 Test Item Value Reference Range Interpretation Comments POCT GLU (test code = 8395782853) 78 mg/dL 70-110 Lab Interpretation (test code = Normal 90434-5) [facility] GLUCOSE (AUTOMATED)2022-04-26 23:18:19 Test Item Value Reference Range Interpretation Comments POCT GLU (test code = 5350223287) 64 mg/dL 70-110 L Lab Interpretation (test code = Abnormal 59983-8) [facility] GLUCOSE (AUTOMATED)2022-04-26 23:00:59 Test Item Value Reference Range Interpretation Comments POCT GLU (test code = 0912219684) 57 mg/dL 70-110 L Lab Interpretation (test code = Abnormal 06840-2) [facility] GLUCOSE (AUTOMATED)2022-04-26 22:37:20 Test Item Value Reference Range Interpretation Comments POCT GLU (test code = 53 mg/dL 70-110 L Notifi ed Provider 6969963664) Lab Interpretation (test Abnormal code = 09048-3) [facility] HospitalGLYCOSYLATED HEMOGLOBIN (A1C)2022-04-26 21:37:24 Test Item Value Reference Range Interpretation Comments HGB A1C (test code = 5.2 % 4-5.7 4548-4) TAMARA (test code = TAMARA) Reference RangesNormal: <5.7%Prediabetes: 5.7 - 6.4%Diabetes: > 6.5% Lab Interpretation (test Normal code = 26305-4) [facility] HospitalHepatitis B Surface Antibody (HBsAb)2022-04-26 21:21:39 Test Item Value Reference Range Interpretation Comments HBsAB (test code = Indeterminate 7491041951) HBsAb mIU/mL Semi-Quantitative (test code = 8730318793) TAMARA (test code = Unable to determine if TAMARA) antibody to Hepatitis B Surface Antigen is present at levels consistent with immunity. ?Patient's immune status should be assessed with other clinical information and/or retesting in 4-6 weeks as clinically indicated. ?If any questions, please contact Clinical Chemistry Director platform consultant at .Unable to determine if antibody to Hepatitis B Surface Antigen is present at levels consistent with immunity. ?Patient's immune status should be assessed with other clinical information and/or retesting in 4-6 weeks as clinically indicated. ?If any questions, please contact Clinical Chemistry Director platform consultant at .Interpretati on: ?Hepatitis B Surface Antibody ? Negative - Patient is considered to be not immune to infection with HBV. ? ? Positive - Anti-HBs detected at greater than or equal to 12 mIU/mL. ?Patient is considered to be immune to infection with HBV. ? [facility] METABOLIC PANEL (NA, K, CL, CO2, GLUCOSE, BUN, CREATININE, CA)2022-04-26 20:31:55 Test Item Value Reference Range Interpretation Comments NA (test code = 139 mmol/L 135-145 3411045408) K (test code = 5.7 mmol/L 3.5-5 H 3758485662) CL (test code = 101 mmol/L 98-108 9485732678) CO2 TOTAL (test code = 25 mmol/L 23-31 2945663177) AGAP (test code = 2-16 1792180345) BUN (test code = 58 mg/dL 7-23 H 6586782613) GLUCOSE (test code = 58 mg/dL 70-110 L 2266702937) CREATININE (test code = 7.22 mg/dL 0.6-1.25 H 6884941529) CALCIUM (test code = 9.4 mg/dL 8.6-10.6 6954722413) eGFR (test code = mL/min/1.73m2 5723579111) TAMARA (test code = TAMARA) Association of [...] tests). Lab Interpretation Abnormal (test code = 70163-7) [facility]2022-[facility]-25 20:31:55 Test Item Value Reference Range Interpretation Comments MAGNESIUM (test code = 5577104433) 1.8 mg/dL 1.7-2.4 Lab Interpretation (test code = Normal 58326-5) [facility]2022-[facility]-25 20:31:55 Test Item Value Reference Range Interpretation Comments PHOSPHORUS (test code = 8410403254) 5.3 mg/dL 2.5-5 H Lab Interpretation (test code = Abnormal 05365-1) [facility] HospitalCBC WITH [id number] 20:21:31 Test Item Value Reference Range Interpretation Comments WBC (test code = See_Comment [Automated 1526-2) message] The sy stem which generated this result transmitted reference range : 4.20 - 10.70 10*3/?L. The reference range was not used to interpret this result as normal/abnormal . RBC (test code = See_Comment L [Automated 979-8) message] The sy [...] (test code = 63.5 fL 38.5-51.6 H 01455-4) RDW-CV (test code = 18.6 % 12.1-15.4 H 788-0) PLT (test code = See_Comment L [Automated 777-3) message] The sy stem which generated this result transmitted reference range : 150 - 328 10*3/ ?L. The reference r carroll was not used to interpret this result as normal/abnormal . MPV (test code = 11.6 fL 9.8-13 44474-8) NRBC/100 WBC (test See_Comment [Automat ed code = 0720976286) message] The system which generated this result transmitted reference range : 0.0 - 10.0 /100 WBCs. The refer ence range was not u sed to interpret th is result as normal/abnormal . NRBC x10^3 (test code See_Comment [Auto mated = 1131630355) message] The s ystem which generated this result transmitted reference range : 10*3/?L. The reference range was not used to interpret this result as normal/abnormal . GRAN MAT (NEUT) % 82.0 % (test code = 770-8) IMM GRAN % (test code 0.10 % = 9776632987) LYMPH % (test code = 14.3 % 736-9) MONO % (test code = 3.2 % 5905-5) EOS % (test code = 0.1 % 713-8) BASO % (test code = 0.3 % 706-2) GRAN MAT x10^3(ANC) 7.37 10*3/uL 1.99-6.95 H (test code = 4220424871) IMM GRAN x10^3 (test 0-0.06 code = 3679557517) LYMPH x10^3 (test code 1.29 10*3/uL 1.09-3.23 = 731-0) MONO x10^3 (test code 0.29 10*3/uL 0.36-1.02 L = 742-7) EOS x10^3 (test code = 0.06-0.53 L 711-2) BASO x10^3 (test code 0.03 10*3/uL 0.01-0.09 = 704-7) Lab Interpretation Abnormal (test code = 34313-1) [facility] GLUCOSE (AUTOMATED)2022-04-26 16:53:05 Test Item Value Reference Range Interpretation Comments POCT GLU (test code = 9710508630) 102 mg/dL 70-110 Lab Interpretation (test code = Normal 01570-0) [facility] HospitalHe[facility]ertis B Surface Antigen (HBsAg)2022-04-26 16:46:40 Test Item Value Reference Range Interpretation Comments HBsAg Semi-Quantitative (test code = Negative Negative 5195-3) [facility] GLUCOSE (AUTOMATED)2022-04-26 11:53:19 Test Item Value Reference Range Interpretation Comments POCT GLU (test code = 4055884518) 109 mg/dL 70-110 Lab Interpretation (test code = Normal 15915-4) [facility] METABOLIC PANEL (NA, K, CL, CO2, GLUCOSE, BUN, CREATININE, CA)2022-04-26 10:31:59 Test Item Value Reference Range Interpretation Comments NA (test code = 141 mmol/L 135-145 8607332536) K (test code = 7.4 mmol/L 3.5-5 HH 7240451672) CL (test code = 106 mmol/L 98-108 6508118029) CO2 TOTAL (test code = 24 mmol/L 23-31 1924724352) AGAP (test code = 2-16 9002350170) BUN (test code = 106 mg/dL 7-23 H 5712120356) GLUCOSE (test code = 60 mg/dL 70-110 L 0803914561) CREATININE (test code = 10.94 mg/dL 0.6-1.25 H 6949020727) CALCIUM (test code = 9.3 mg/dL 8.6-10.6 4007768657) eGFR (test code = mL/min/1.73m2 1704980064) TAMARA (test code = TAMARA) Association of [...] tests). Lab Interpretation Abnormal (test code = 17530-1) [facility] GLUCOSE (AUTOMATED)2022-04-26 09:45:04 Test Item Value Reference Range Interpretation Comments POCT GLU (test code = 1807894898) 70 mg/dL 70-110 Lab Interpretation (test code = Normal 61923-7) [facility] GLUCOSE(AGE >30DAYS)2022-04-26 09:41:00 Test Item Value Reference Range Interpretation Comments POCT Glu (age>30days) (test code = 70 mg/dL 70-110 3342) Lab Interpretation (test code = Normal 46585-4) [facility] HospitalTROPONIN [id number] 08:01:27 Test Item Value Reference Interpretation Comments Range TROPONIN I (test 0.276 ng/mL See_Comment H [Automated code = 4030867005) message] The system which generated this result [...] biotin. Lab Interpretation Abnormal (test code = 83239-0) [facility] HospitalN-TERMINAL [id number] 07:58:26 Test Item Value Reference Range Interpretation Comments NT-proBNP (test code 73034 pg/mL See_Comment H [Autom ated = 4421193355) message] The system which generated this result transmitted reference range : <=450. The reference range was not used to interpret this result as normal/abnormal . TAMARA (test code = TAMARA) Biotin has been reported to cause a negative bias, interpret results relative to patient's use of biotin. Lab Interpretation Abnormal (test code = 81654-5) [facility] HospitalCOMP. METABOLIC PANEL (49126)2022-04-26 07:57:26 Test Item Value Reference Range Interpretation Comments NA (test code = 138 mmol/L 135-145 6260950671) K (test code = 8.3 mmol/L 3.5-5 HH 9715360030) CL (test code = 104 mmol/L 98-108 1505438292) CO2 TOTAL (test code = 24 mmol/L 23-31 0977321956) AGAP (test code = 2-16 9717319364) BUN (test code = 107 mg/dL 7-23 H 9326059126) GLUCOSE (test code = 100 mg/dL 70-110 4852108955) CREATININE (test code = 10.87 mg/dL 0.6-1.25 H 9658644164) TOTAL BILI (test code = 0.6 mg/dL 0.1-1.2 3599257336) CALCIUM (test code = 9.4 mg/dL 8.6-10.6 3150832552) T PROTEIN (test code = 7.2 g/dL 6.3-8.2 8992029493) ALBUMIN (test code = 4.0 g/dL 3.5-5 2923166967) ALK PHOS (test code = 66 U/L 34-122 9602230701) ALTv (test code = 14 U/L 5-50 1742-6) AST(SGOT) (test code = 18 U/L 13-40 0647641741) eGFR (test code = mL/min/1.73m2 4077606352) TAMARA (test code = TAMARA) Association of [...] tests). Lab Interpretation Abnormal (test code = 16077-3) [facility] GLUCOSE (AUTOMATED)2022-04-26 07:50:29 Test Item Value Reference Range Interpretation Comments POCT GLU (test code = 6676167887) 145 mg/dL 70-110 H Lab Interpretation (test code = Abnormal 53170-2) [facility] HospitalLIPASE, [id number] 07:49:24 Test Item Value Reference Range Interpretation Comments LIPASE (test code = 3038916814) 143 U/L 0-220 Lab Interpretation (test code = Normal 84809-0) [facility] GLUCOSE(AGE >30DAYS)2022-04-26 07:47:00 Test Item Value Reference Range Interpretation Comments POCT Glu (age>30days) (test code = 145 mg/dL 70-110 A 3342) Lab Interpretation (test code = Abnormal 34397-0) [facility] WITH [id number] 07:27:06 Test Item Value Reference Range Interpretation [...] (test code = 63.5 fL 38.5-51.6 H 34070-8) RDW-CV (test code = 18.7 % 12.1-15.4 H 788-0) PLT (test code = See_Comment L [Automated 777-3) message] The sy stem which generated this result transmitted reference range : 150 - 328 10*3/ ?L. The reference r carroll was not used to interpret this result as normal/abnormal . MPV (test code = 12.7 fL 9.8-13 70868-2) NRBC/100 WBC (test See_Comment [Automat ed code = 1516046760) message] The system which generated this result transmitted reference range : 0.0 - 10.0 /100 WBCs. The refer ence range was not u sed to interpret th is result as normal/abnormal . NRBC x10^3 (test code See_Comment [Auto mated = 8881579094) message] The s ystem which generated this result transmitted reference range : 10*3/?L. The reference range was not used to interpret this result as normal/abnormal . GRAN MAT (NEUT) % 67.2 % (test code = 770-8) IMM GRAN % (test code 0.50 % = 5062675515) LYMPH % (test code = 20.7 % 736-9) MONO % (test code = 6.0 % 5905-5) EOS % (test code = 5.1 % 713-8) BASO % (test code = 0.5 % 706-2) GRAN MAT x10^3(ANC) 5.93 10*3/uL 1.99-6.95 (test code = 6963661934) IMM GRAN x10^3 (test 0.04 10*3/uL 0-0.06 code = 6041647271) LYMPH x10^3 (test code 1.82 10*3/uL 1.09-3.23 = 731-0) MONO x10^3 (test code 0.53 10*3/uL 0.36-1.02 = 742-7) EOS x10^3 (test code = 0.45 10*3/uL 0.06-0.53 711-2) BASO x10^3 (test code 0.04 10*3/uL 0.01-0.09 = 704-7) Lab Interpretation Abnormal (test code = 28230-0) [facility] HospitalCT [facility] W/O [id number] 19:03:28 Right posterior parietal scalp soft tissue [...] noted nonspecific enlargement of the right subman dibulargland.[facility] HospitalCT Cervical Spine W/O Contrast 2020-05-20 19:03:28 [...] malalignmentIncidentally noted nonspecific enlargement of the right submandibulargland.[facility]"
[2023-01-08 20:40] LABS: Absolute Lymphocytes (CBC) 1.2 K/uL (0.7-4.9); Hematocrit 38.1 % (39.6-49.0); Lymphocytes % 20.5 % (15.3-44.8); MCV 90.6 fL (80-100); MPV 9.6 fL (7.6-11.3); RBC Red Blood Cell Count 4.21 M/uL (4.33-5.43)
[2023-01-08 20:42] LABS: SARS-CoV-2 Antigen Rapid Res Negative (Negative)
[2023-01-08 20:43] LABS: Anisocytosis 1+; Blood Morphology Comment NOTED (NOT SEEN); Platelet Estimate ADEQ; Protime INR 1.27; White Blood Cell Scan OK (OK)
[2023-01-08 20:59] LABS: Bilirubin Total 0.8 mg/dL (0.2-1.0); Potassium 3.8 mEq/L (3.5-5.1); Protein, Total 8.3 g/dL (6.4-8.2)
[2023-01-08 21:04] LABS: Troponin High Sensitivity 112.3 pg/mL (<58.9)
--- NOTE | 2023-01-08 21:10 | RAD REPORT ---
EXAM DESCRIPTION: Ant Single View01/08/2023 8:44 pm CLINICAL HISTORY: Cough COMPARISON: November 2022 FINDINGS: Mild bilateral pulmonary opacities Moderate cardiomegaly IMPRESSION: Mild bilateral pulmonary opacities may indicate mild interstitial pulmonary edema
[2023-01-08] MEDS ORDERED: NA CHLORIDE 0.9% 250 ML ONE (21:16)
--- NOTE | 2023-01-08 22:29 | RAD REPORT ---
EXAM DESCRIPTION: CT - Chest Abd Pelvis Wo Con - 01/08/2023 10:11 pm CLINICAL HISTORY: Cough. Abdominal pain COMPARISON: November 2022 TECHNIQUE: Computed axial tomography of the chest, abdomen and pelvis was obtained. Oral contrast wa s given. IV contrast was not requested. All CT scans are performed using dose optimization technique as appropriate and may include automated exposure control or mA/KV adjustment according to patient size. FINDINGS: The evaluation of mediastinum, manoj, vessels and solid organs is limited secondary to the lack of IV contrast administration 18 millimeter left upper lobe ground-glass nodule has developed. Calcified hilar and mediastinal lymph nodes. Small right pleural effusion. A pericardial effusion is not seen. Moderate cardiomegaly Hepatic and splenic granulomata. Pancreas and adrenals grossly normal. Small kidneys No evidence of diverticulitis . IMPRESSION: 18 millimeter left upper lobe ground-glass nodule has developed since the prior exam. Mo st likely it is infectious or inflammatory. Follow-up CT chest in 3 months is recommended for re-eval uation
[2023-01-08] MEDS ORDERED: OSELTAMIVIR 75 MG CAP PO ONE (22:54)
[2023-01-08] MEDS ORDERED: METOPROLOL TARTRATE 5 MG/5 ML INJ IV ONE (22:55)
[2023-01-08] MEDS ORDERED: NA CHLORIDE 0.9% 50 ML ONE (22:55)
[2023-01-08] MEDS ORDERED: ASPIRIN 81 MG CHEWABLE TABLET ONE (22:55)
[2023-01-08] MEDS ORDERED: AZITHROMYCIN 250 MG TAB ONE (22:55)
[2023-01-08] MEDS ORDERED: CEFTRIAXONE 1000 MG/VIAL ONE (22:55)
--- NOTE | 2023-01-08 23:09 | EDPHYS ---
Physician Documentation [facility] Name: Jozef Carbajal Age: 77 yrs Sex: Male : 1945 Arrival Date: 01/08/2023 Time: 19:27 Bed 8 Private MD: Justin Vanessa C ED Physician Chago Burns Historical: - PMHx: 01/08 19:49 Anemia; CKD; Diabetes - NIDDM; Hypertension; Hypothyroidism; Lupus; Renal Disease; kd3 - PSHx: 19:49 Cholecystectomy; Left arm dialysis fistula; kd3 - Immunization history:: Adult Immunizations up to date. - Social history:: Smoking status: unknown. Exam: 20:03 ECG was reviewed by the Attending Physician. cp Vital Signs: 19:47 BP 118 / 49; Pulse 112; Resp 20; Temp 98.7(O); Pulse Ox 97% on R/A; Weight 68.04 kg; kd3 Height 6 ft. 0 in. ; 21:15 BP 114 / 53; Pulse 118; Resp 20; Pulse Ox 99% ; ll3 23:03 BP 115 / 57; Pulse 106; Resp 20; Pulse Ox 96% on R/A; ll3 19:47 Body Mass Index 20.34 (68.04 kg, 182.88 cm) kd3 MDM: 23:09 Patient medically screened. cp 01/08 19:58 Order name: Blood Culture Adult (2) cp 01/08 19:58 Order name: CBC with Diff; Complete Time: 20:55 cp 01/08 21:26 Interpretation: Normal except: RBC 4.21; HGB 12.1; HCT 38.1; MCHC 31.6; PLT 128; RDW cp 20.4. 01/08 19:58 Order name: CMP; Complete Time: 21:16 cp 01/08 22:09 Interpretation: Normal except: NA 135; CL 96; CO2 33; BUN 35; CRE 4.22; GFR 14; AST 68; cp TP 8.3; ALB 3.0; GLOB 5.3; A/G 0.6. 01/08 19:58 Order name: Lactate w/ 2H reflex if indic.; Complete Time: 20:55 cp 01/08 19:58 Order name: Protime (+inr); Complete Time: 20:55 cp 01/08 19:58 Order name: Ptt, Activated; Complete Time: 20:55 cp 01/08 19:58 Order name: Urinalysis w/ reflexes cp 01/08 19:58 Order name: Procalcitonin; Complete Time: 22:39 cp / 22:39 Interpretation: Abnormal: Procalcitonin 2.18. cp 01/08 19:58 Order name: SARS RAPID; Complete Time: 20:55 cp 01/08 19:58 Order name: Influenza Screen (a \T\ B); Complete Time: 20:55 cp 01/08 19:58 Order name: Troponin HS; Complete Time: 21:16 cp 01/08 22:13 Interpretation: Reviewed. cp 01/08 20:44 Order name: CBC Smear Scan; Complete Time: 20:55 EDMS 01/08 23:55 Order name: Basic Metabolic Panel EDMS 01/08 23:55 Order name: Basic Metabolic Panel EDMS 01/08 23:55 Order name: CBC with Automated Diff EDMS 01/08 23:55 Order name: CBC with Automated Diff EDMS 01/08 23:55 Order name: NT PRO-BNP EDMS 01/08 23:55 Order name: NT PRO-BNP EDMS / 23:55 Order name: Troponin High Sensitivity EDMS / 23:55 Order name: Troponin High Sensitivity EDMS 01/08 23:55 Order name: Troponin High Sensitivity EDMS / 23:55 Order name: Troponin High Sensitivity EDMS / 19:58 Order name: Chest Single View XRAY; Complete Time: 21:16 cp 01/08 21:27 Order name: CT Chest Abdomen Pelvis W/O Contrast; Complete Time: 22:39 cp 01/08 19:58 Order name: EKG; Complete Time: 19:59 cp 01/08 19:58 Order name: Accucheck; Complete Time: 21:06 cp 01/08 19:58 Order name: Cardiac monitoring; Complete Time: 20:32 cp 01/08 19:58 Order name: EKG - Nurse/Tech; Complete Time: 20:01 cp 01/08 19:58 Order name: IV Saline Lock - Large Bore; Complete Time: 20:32 cp 01/08 19:58 Order name: Labs collected and sent; Complete Time: 20:32 cp 01/08 19:58 Order name: O2 Per Protocol; Complete Time: 20:32 cp 01/08 19:58 Order name: O2 Sat Monitoring; Complete Time: 20:32 cp 01/08 19:58 Order name: Vital Signs; Complete Time: 20:32 cp EC:03 Rate is 122 beats/min. QRS interval is prolonged at 114 msec. QT interval is normal. T cp waves are Inverted in leads I, aVL, aVR, V2. Interpreted by me. Reviewed by me. Administered Medications: 21:16 Drug: NS 0.9% IV 250 ml Route: IV; Rate: bolus; Site: right antecubital; ll3 21:38 Follow up: Response: No adverse reaction; IV Status: Completed infusion; IV Intake: ll3 250ml 23:00 Drug: Oseltamivir PO 75 mg Route: PO; ll3 23:00 Drug: AZITHromycin PO 500 mg Route: PO; ll3 23:00 Drug: Rocephin IV 1 grams Route: IV; Rate: calculated rate; Site: right antecubital; ll3 23:00 Drug: Metoprolol IVP 2.5 mg Route: IVP; Site: right antecubital; ll3 23:00 Drug: Aspirin PO Chewable Tablet 324 mg Route: PO; ll3 06 00:48 CANCELLED (Physician Discretion): carvedilol PO 3.125 mg PO once; administer with food cp Disposition Summary: 01/08/23 23:09 Hospitalization Ordered Hospitalization Status: Inpatient Admission cp Provider: Justin Vanessa cp Condition: Stable cp Problem: new cp Symptoms: have improved cp Bed/Room Type: Standard Location: Telemetry/MedSurg (Inpatient)(01/09/23 07:17) eb Room Assignment: [facility](01/09/23 07:17) eb Diagnosis - Other pneumonia, unspecified organism cp - Influenza due to other identified influenza virus with other respiratory cp manifestations - Weakness cp Forms: - Medication Reconciliation Form cp - SBAR form cp Addendum: 01/11/2023 12:59 Co-signature as Attending Physician, Chago GARCIA was immediately available on-site m s3 in the Emergency Department for consultation in the care of the patient. Signatures: Dispatcher [employer] EDMS Kayden Moeller, MADANC ROUND BONER-Cla1 Blaise Sylvester PA PA cp Garcia, Cindy, RN RN cg Botello, Elizabeth eb Sims, Chago, DO DO ms3 Hannah Vaughn RN RN ll3 Shelia Bernstein RN RN kd3 Corrections: (The following items were deleted from the chart) 01/09 00:48 00:48 carvedilol PO 3.125 mg PO once; administer with food ordered. [facility] 00:01/08 23:09 Telemetry/MedSurg (Inpatient) [facility] 01/09 00:51 01/08 23:09 [facility] 01/09 07:17 00:51 BR ER HOLD eb 07: 00:51 ERHOLD- eb
--- NOTE | 2023-01-08 23:09 | ER ---
Nurse's Notes [facility] Name: Jozef Carbajal Age: 77 yrs Sex: Male : 1945 Arrival Date: 01/08/2023 Time: 19:27 Bed 8 Private MD: Justin Vanessa C Diagnosis: Other pneumonia, unspecified organism;Influenza due to other identified influenza virus with other respiratory manifestations;Weakness Presentation: 01/08 19:48 Chief complaint: Parent and/or Guardian states: He is having some difficulty breathing kd3 and weakness with nausea and vomiting. He also has some upper right sided pain. Coronavirus screen: Vaccine status: Patient reports receiving the 2nd dose of the covid vaccine. Ebola Screen: No symptoms or risks identified at this time. Initial Sepsis Screen: Does the patient meet any 2 criteria? No. Patient's initial sepsis screen is negative. Does the patient have a suspected source of infection? No. Patient's initial sepsis screen is negative. Risk Assessment: Do you want to hurt yourself or someone else? Patient reports no desire to harm self or others. Onset of symptoms was January 08, 2023. 19:48 Method Of Arrival: Wheelchair kd3 19:48 Acuity: CARLOS MANUEL 3 kd3 Triage Assessment: 19:49 General: Appears ill, Behavior is cooperative. Pain: Complains of pain in right upper kd3 quadrant Pain radiates to right mid back. Respiratory: Reports shortness of breath Onset: The symptoms/episode began/occurred gradually, the patient has moderate shortness of breath. Historical: - PMHx: 19:49 Anemia; CKD; Diabetes - NIDDM; Hypertension; Hypothyroidism; Lupus; Renal Disease; kd3 - PSHx: 19:49 Cholecystectomy; Left arm dialysis fistula; kd3 - Immunization history:: Adult Immunizations up to date. - Social history:: Smoking status: unknown. Screenin:19 [facility] ED Fall Risk Assessment (Adult) History of falling in the last 3 months, ll3 including since admission No falls in past 3 months (0 pts) Confusion or Disorientation No (0 pts) Intoxicated or Sedated No (0 pts) Impaired Gait No (0 pts) Mobility Assist Device Used No (0 pt) Altered Elimination No (0 pt) Score/Fall Risk Level 0 - 2 = Low Risk Oriented to surroundings, Maintained a safe environment, Educated pt \T\ family on fall prevention, incl call for assistance when getting out of bed. Abuse screen: Denies threats or abuse. Denies injuries from another. Nutritional screening: No deficits noted. Tuberculosis screening: No symptoms or risk factors identified. Assessment: 20:20 General: Appears uncomfortable, Behavior is calm, cooperative. Pain: Complains of pain ll3 in right upper quadrant Pain does not radiate. Neuro: Level of Consciousness is awake, alert, obeys commands, Oriented to person, place, time, situation. Cardiovascular: Rhythm is sinus tachycardia. Respiratory: Reports shortness of breath cough that is Airway is patent Respiratory effort is even, unlabored, Respiratory pattern is regular, symmetrical, Breath sounds are clear bilaterally. Derm: Skin is pink, warm \T\ dry. 21:30 Reassessment: No changes from previously documented assessment. Patient and/or family ll3 updated on plan of care and expected duration. Pain level reassessed. Patient is alert, oriented x 3, equal unlabored respirations, skin warm/dry/pink. Vital Signs: 19:47 BP 118 / 49; Pulse 112; Resp 20; Temp 98.7(O); Pulse Ox 97% on R/A; Weight 68.04 kg; kd3 Height 6 ft. 0 in. ; 21:15 BP 114 / 53; Pulse 118; Resp 20; Pulse Ox 99% ; ll3 23:03 BP 115 / 57; Pulse 106; Resp 20; Pulse Ox 96% on R/A; ll3 19:47 Body Mass Index 20.34 (68.04 kg, 182.88 cm) kd3 ED Course: 19:30 Patient arrived in ED. es 19:31 Justin Vanessa MD is Private Physician. es 19:35 [facility] cp 19:36 Chago Burns DO is Attending Physician. cp 19:49 Triage completed. kd3 19:49 Arm band placed on right wrist. kd3 20:20 Initial lab(s) drawn, by me, sent to lab. Inserted saline lock: 20 gauge in right ll3 antecubital area, using aseptic technique. Blood collected. 20:46 Chest Single View XRAY In Process Unspecified. EDMS 21:19 Patient has correct armband on for positive identification. Placed in gown. Bed in low ll3 position. Call light in reach. Side rails up X 1. Adult w/ patient. Client placed on continuous cardiac and pulse oximetry monitoring. NIBP monitoring applied. 22:13 CT Chest Abdomen Pelvis W/O Contrast In Process Unspecified. EDMS 23:08 Justin Vanessa MD is Hospitalizing Provider. cp 01/09 08:15 No provider procedures requiring assistance completed. Patient admitted, IV remains in ss place. Administered Medications: 01/08 21:16 Drug: NS 0.9% IV 250 ml Route: IV; Rate: bolus; Site: right antecubital; ll3 21:38 Follow up: Response: No adverse reaction; IV Status: Completed infusion; IV Intake: ll3 250ml 23:00 Drug: Oseltamivir PO 75 mg Route: PO; ll3 23:00 Drug: AZITHromycin PO 500 mg Route: PO; ll3 23:00 Drug: Rocephin IV 1 grams Route: IV; Rate: calculated rate; Site: right antecubital; ll3 23:00 Drug: Metoprolol IVP 2.5 mg Route: IVP; Site: right antecubital; ll3 23:00 Drug: Aspirin PO Chewable Tablet 324 mg Route: PO; ll3 01/09 00:48 CANCELLED (Physician Discretion): carvedilol PO 3.125 mg PO once; administer with food cp Intake: 01/08 21:38 IV: 250ml; Total: 250ml. ll3 Outcome: 23:09 Decision to Hospitalize by Provider. cp 01/09 08:15 Admitted to ER Hold. Please see [facility] for further documentation. 08:49 Patient left the ED. Signatures: Dispatcher [employer] EDNV Ayesha Vu Shelby RN RN ss Blaise Sylvester PA PA Hannah Ramírez RN RN ll3 Shelia Bernstein RN RN kd3 Corrections: (The following items were deleted from the chart) 01/08 21:23 20:20 BP 114 / 53; Pulse 118bpm; Resp 20bpm; Pulse Ox 99%; ll3 ll3
[2023-01-08] MEDS ORDERED: ONDANSETRON 4 MG/2 ML VIAL IV PRN (23:49)
[2023-01-09 05:45] LABS: Absolute Lymphocytes (CBC) 1.4 K/uL (0.7-4.9); Hematocrit 34.7 % (39.6-49.0); Lymphocytes % 20.7 % (15.3-44.8); MCV 90.8 fL (80-100); MPV 10.1 fL (7.6-11.3); RBC Red Blood Cell Count 3.82 M/uL (4.33-5.43)
[2023-01-09 06:01] LABS: Potassium 3.9 mEq/L (3.5-5.1)
--- NOTE | 2023-01-09 10:35 | CON ---
Date of Consultation: 01/09/2023 Reason For Consultation: Elevated troponin and valvular heart disease. History Of Present Illness: Mr. Carbajal is 77. He has chronic renal disease, creatinine of 4.74. Deja chavez is known to have moderate mitral regurgitation, moderate aortic stenosis, severe aortic regurgitati on, mild mitral stenosis by recent echo. He had a negative Lexiscan in 2022. Comes in with what marlen eared to be COVID pneumonia, elevated troponin of 113. His heart rate is 117. His BNP was 130,000, elevated procalcitonin. Chest x-ray showed possible CHF versus pneumonia. He is presently on antibi otics. No cardiac symptoms reported except for generalized fatigue and weakness and shortness of juan ath, which is chronic with him. Apparently, he was supposed to see Dr. Reddy in followup since his last admission, but this does not occurred yet. The patient denies any palpitation, syncope. Denied any PND, orthopnea, pedal edema. Past Medical History: Stated above also includes gout, hypothyroidism, dyslipidemia, gastroesophagea l reflux disease. Medications: Include allopurinol, Cardura, aspirin, Synthroid, Lipitor, Coreg, Norvasc, and Protonix . Review of Systems: Negative. Social History: Negative. Family History: Noncontributory. Physical Examination: General: He appeared to be very weak and feeble. Vital Signs: Stable except for the heart rate of 117, but it is in sinus tach. Afebrile. HEENT: Negative. Neck: Supple with no bruit. Chest: Reveals crackles both bases. Cardiac: Revealed a regular rhythm and rate with aortic stenosis and mitral stenosis murmurs. No ga llops or rubs. Abdomen: Benign. Extremity: Revealed no clubbing, cyanosis, or edema. Diagnostic Data: As stated earlier. Impression And Plan: 1.COVID pneumonia. 2.Renal failure, chronic. 3.Possible acute on chronic diastolic congestive heart failure secondary to multiple valvular heart disease. 4.Elevated troponin secondary to demand ischemia. 5.Elevated BNP secondary to demand ischemia. 6.Gout. 7.Dyslipidemia, well controlled. 8.Hypertension, well controlled. 9.Gastroesophageal reflux disease. The patient has elevated procalcitonin. He is on antibiotics. He is getting appropriate regimen for now and had a negative Lexiscan recently. I do not intend to d o any further cardiac workup on him at this point. Case was discussed with Dr. Vanessa. He will follow up with Dr. Vanessa and with Dr. Reddy in the near future. The patient I believe at this point is too ill to have any cardiac interventions done. We will discuss the case further with the patient and t he family after he gets out of the hospital. SANKET Voice ID: [id number] Report ID: [id number]
[2023-01-09] MEDS: CEFTRIAXONE 1,000 MG in NA CHLORIDE 0.9% 50 ML IVPB SCH ×2 (11:03→21:19)
[2023-01-09] MEDS: ACETAMINOPHEN 500 MG TAB PO PRN ×2 (11:10→21:18)
[2023-01-09] MEDS: AZITHROMYCIN IV 250 MG in NA CHLORIDE 0.9% 250 ML IVPB SCH (12:24)
[2023-01-09] MEDS: GUAIFENESIN/CODEINE 5ML UCUP PO SCH ×3 (14:34→21:18)
--- NOTE | 2023-01-09 15:38 | P.CNS ---
Date of Consult: 01/09/23 Reason for Consult: ESRD Requesting Physician: Theodore Vanessa Chief Complaint: Weakness, cough, malaise History of Present Illness: 77-year-old AA male patient with medical history significant for end stage renal disease on dialysis MWF at [facility], hypertension underlying but also with a hx of intradialytic hypotension, a hx of diastolic dysfunction and over the past 6-12 mo greater debility/weakness with admissions for PNA, pleurisy and other. Per , pt was doing a bit better but mid week started going downhill with greater weakness, loss of appetite, some diarrhea, cough and malaise. Found to be flu positive in the ER. Allergies No Known Allergies Allergy (Verified 01/09/23 11:23) Home Medications: allopurinoL [Allopurinol] 1 tab PO DAILY 09/05/18 Pantoprazole Sodium 40 mg PO DAILY 10/14/22 Amlodipine [Norvasc*] 10 mg PO DAILY 10/25/22 Aspirin [Aspirin EC 81 MG] 81 mg PO DAILY 10/25/22 Atorvastatin Calcium 20 mg PO DAILY AT SUPPER 10/25/22 Cholecalciferol (Vitamin D3) [Vitamin D3] 1,000 units PO DAILY 10/25/22 Folic Acid 1 mg PO DAILY 10/25/22 carvediloL [Carvedilol] 6.25 mg PO BID 10/25/22 Levothyroxine [Synthroid*] 1 tab PO DAILY 10/30/22 Linaclotide [Linzess] 72 mcg PO DAILY 01/09/23 - Past Medical/Surgical History Diabetic: Yes -: Lupus -: HTN -: NIDDM -: CVA 2003 -: ESRD (Dr. Avery) -: Diastolic CHF/ / MR & TR/ Pulmonary HTN -: Anemia -: Hypothyroidism -: Cholecystectomy - Family History Father Medical History: Hypertension, Diabetes Mother Medical History: Hypertension, Diabetes Brother Medical History: Hypertension, Diabetes Sister Medical History: Hypertension, Diabetes - Social History Smoking Status: Unknown if ever smoked Alcohol use: No CD- Drugs: No Caffeine use: No Domestic Violence: Patient's denies sexual, physical, or financial abuse. Review of Systems is unable to be obtained Physical Examination Temp Pulse Resp BP Pulse Ox 97.4 F 77 20 125/61 94 01/09/23 12:00 01/09/23 12:00 01/09/23 12:00 01/09/23 12:00 01/09/23 12:00 General: Other (Cachectic, chronically ill appearing) HEENT: Atraumatic, Normocephalic Neck: Supple Respiratory: Normal air movement, Diminished (Poor resp effort) Cardiovascular: Regular rate/rhythm Gastrointestinal: Soft and benign (Scaphoid), No tenderness Musculoskeletal: Other (Muscle mass loss) Integumentary: No tenderness/swelling Neurological: Other (Lethargic but awake, responds briefly) Laboratory Data (last 24 hrs) 01/08/23 20:15: PT 14.0 H, INR 1.27, APTT 31.1 01/08/23 20:15: Sodium 135 L, Potassium 3.8, BUN 35 H, Creatinine 4.22 H, Glucose 106, Total Bilirubin 0.8, AST 68 H, ALT 59, Alkaline Phosphatase 99 01/08/23 20:15: WBC 5.70, Hgb 12.1 L, Hct 38.1 L, Plt Count 128 L Conclusions/Impression: ESRD on HD MWF -HD performed yesterday at his OP clinic. Acceptable metab profile HTN with CKD but with relative hypotension and orthostatic hypotension and falls at one point several months ago -Meds were scaled back prev and then further more recently with pt being left just on low dose beta alice Diastolic CHF, chronic -BNP levels difficult to interpret, would not order in renal failure pts Troponin leak Mild leak but flat trend, agree with Cardiology that pt is a poor candidate for invasive w/u given his current condition Influenza B positive -Complete tamiflu, renally dosed, course Terry Packer MD, SHAYAN
[2023-01-09] MEDS: NEPRO 1,000 ML BOT RTH SCH (21:00)
[2023-01-09] MEDS: HEPARIN 5000 UNIT/ML 1 ML VIAL SQ SCH (21:18)
[2023-01-10] MEDS: CEFTRIAXONE 1,000 MG in NA CHLORIDE 0.9% 50 ML IVPB SCH ×2 (09:30→21:57)
[2023-01-10] MEDS: NEPRO 1,000 ML BOT RTH SCH ×2 (09:31→21:00)
[2023-01-10] MEDS: HEPARIN 5000 UNIT/ML 1 ML VIAL SQ SCH ×2 (09:31→21:56)
[2023-01-10] MEDS: GUAIFENESIN/CODEINE 5ML UCUP PO SCH ×4 (09:32→20:28)
[2023-01-10] MEDS: AZITHROMYCIN IV 250 MG in NA CHLORIDE 0.9% 250 ML IVPB SCH (09:32)
[2023-01-10] MEDS: Linaclotide [Linzess] 72 MCG Capsule PO SCH (10:00)
--- NOTE | 2023-01-10 10:03 | PN ---
The patient had came in with COVID, elevated troponin, has known significant mitral regurgitation, ao rtic stenosis. Patient of Dr. Vanessa. He is on heparin subcu. He is on antibiotics. Vital signs are stable afebrile. Stable angina. I will discuss the case further with him and the family and with Nika Vanessa. He will see me in the office after discharge in the next week or two and we will decide on further plans regarding his valvular heart disease. I will sign off his case for now. SANDRA/WILLIAM Voice ID: [id number] Report ID: [id number]
[2023-01-10] MEDS: ASPIRIN EC 81 MG TAB PO SCH (10:30)
[2023-01-10] MEDS: PANTOPRAZOLE 40MG TABLET PO SCH (10:30)
[2023-01-10] MEDS: LEVOTHYROXINE SOD 0.05 MG TABLET PO SCH (10:30)
--- NOTE | 2023-01-10 12:16 | PN ---
Date of Progress Note: 01/10/2023 Subjective: The patient was seen this morning for followup. No new complaints or problems reported by the patient. He was lying in bed, not in any distress. His was with him at bedside. He is taking his cough medicine and that is helping him to some extent, but still has cough, so it is not well controlled with current cough medicine. His pain is well controlled with intermittent use of Tylenol. Denies any nausea, vomiting. Appetite is poor and was asking about some medication for appetite stimulation. Objective: Vital Signs: Reviewed. Temperature this morning 97.9, pulse 75, respiratory rate 16, blood pressure 102/39, oxygen saturation 96% on room air. HEENT: Unremarkable. Lungs: Clear to auscultation. Heart: Sounds normal. Abdomen: Soft. Bowel sounds normal. No guarding, rigidity, tenderness, distention. Extremities: No leg edema. Laboratory Data: There were no new labs today. Impression: 1. Influenza A with respiratory manifestation. 2. Abdominal pain. 3. Pneumonia. 4. End-stage renal disease, on hemodialysis. 5. Hypertension. Plan: We will go ahead and continue antihypertensive medication with instruction to hold blood pressure medication depending on the patient's blood pressure readings as per order. We will continue current antibiotic. The patient received 1 dose of Tamiflu in the emergency room, which was 75 mg. He will need 2 more doses of Tamiflu 30 mg each dose after dialysis on Wednesday and Wednesday. Continue current empiric antibiotics, continue to follow with crop insurance claims adjuster. For appetite stimulation, I did talk to the patient and the patient's that we will not suggest we use medication like Megace because of increased risk of blood clot, but medication like Mirtazapine would be safe to use it and we will start him on 7.5 mg daily at bedtime. I will see him tomorrow for followup. Depending on his condition tomorrow, we will decide if we can possibly discharge him to go home tomorrow or not. NADIA/MODL Voice ID: [id number] Report ID: [id number] TASHI
[2023-01-10] MEDS ORDERED: HALOPERIDOL LACT 5 MG/ML INJ IV PRN (12:31)
[2023-01-10] MEDS ORDERED: MIDAZOLAM HCL 2 MG/2 ML INJ IV PRN (12:31)
[2023-01-10] MEDS ORDERED: LORazepam 2 MG/ML VIAL IV PRN (12:31)
[2023-01-10] MEDS ORDERED: NA CHLORIDE 0.9% 250 ML IV PRN (12:31)
[2023-01-10] MEDS ORDERED: FENTANYL CITR 100 MCG/2 ML IV PRN (12:31)
--- NOTE | 2023-01-10 12:34 | P.PN ---
Date of Service: 01/10/23 Rapid Response was called overhead at 11:30 AM. I arrived at bedside shortly after. Hospitalist, Dr. Yuval Smith was already at bedside. Mr. Carbajal was unresponsive, and found to be pulseless. Alvin Davon was called at 11:31 AM. ACLS protocol was initiated and chest compressions were performed. Soon after, at 11:32 AM, he achieved return of spontaneous circulation. Emergency Medicine physician, Dr. Jules Smith, soon arrived at bedside in response to the Code Blue. Despite achieving ROSC, his heart rate fluctuated greatly, but he appeared to be bradycardic with heart rates in the 20s-30s. Dr. Jules Smith attempted to transcutaneously pace him, but he soon went back into PEA arrest. A second round of ACLS protocol was initiated and he underwent endotracheal intubation by Dr. Jules Smith. At 11:42 AM, he achieved return of spontaneous circulation. I have notified his family, who was outside the room. He is currently being transferred to the ICU. I have called notified his primary attending, Dr. Vanessa, who will re- assume care at this time. Galen Anderson M.D.
--- NOTE | 2023-01-10 12:35 | RAD REPORT ---
EXAM DESCRIPTION: Ant Single View01/10/2023 12:06 pm CLINICAL HISTORY: sob COMPARISON: January 08, 2023 FINDINGS: Worsening in diffuse bilateral pulmonary opacities which are moderate. Cardiomegaly Endotracheal tube has its tip 3.3 centimeters above top of the aortic arch IMPRESSION: Endotracheal tube has its tip 3.3 centimeters above top of the aortic arch. It should be advanced Worsening in moderate diffuse bilateral pulmonary opacities probably pulmonary edema
[2023-01-10] MEDS ORDERED: NA CHLORIDE 0.9% 250 ML ONE (12:51)
[2023-01-10] MEDS ORDERED: propofoL 1,000 MG/100 ML VIAL IV SCH (13:00)
[2023-01-10 13:29] LABS: Albumin 2.9 g/dL (3.4-5.0); Bilirubin Total 0.6 mg/dL (0.2-1.0); Potassium 4.4 mEq/L (3.5-5.1); Protein, Total 8.3 g/dL (6.4-8.2)
--- NOTE | 2023-01-10 13:35 | P.PN ---
Date of Service: 01/10/23 Alvin dobbins called to room 417, patient unresponsive, was pulseless, pulse obtained just prior to my arrival, HR in 30s, irregular. Not breathing effectively. Atropine given without improvement. Pt lost pulse once again despite transcutaneous pacing initiation. Pt intubated by me, single pass, 7.5 ETT 23 cm at lip, good color change, bilateral breath sounds present. Pulse obtained shortly after intubation. BP improved to 105/49, CXR shows appropriately placed ETT. Pt with 2 stable BP readings, transferred to ICU, hospitalist in contact with Dr. Vanessa as is his patient.
[2023-01-10] MEDS ORDERED: NOREPINEPHRINE BITARTRATE/D5W 4 MG/250 ML BAG IV SCH (14:00)
[2023-01-10 14:01] LABS: Hematocrit 31.9 % (39.6-49.0); Lymphocytes % 12.3 % (15.3-44.8); MPV 10.1 fL (7.6-11.3)
[2023-01-10 16:16] LABS: Arterial Blood Carboxyhemoglob 0.6 % (0-1.5); Blood Gas Oxyhemoglobin 95.9 % (94-97); Blood O2 Saturation 98.1 % (92-98.5)
[2023-01-10] MEDS: carvediloL 6.25 MG TAB PO SCH (17:00)
[2023-01-10] MEDS: ATORVASTATIN 20 MG TAB PO SCH (17:00)
[2023-01-10] MEDS: FAMOTIDINE 20 MG/2 ML VIAL IV SCH (17:30)
[2023-01-10] MEDS ORDERED: OSELTAMIVIR 30 MG CAP PO SCH (18:00)
--- NOTE | 2023-01-10 19:27 | RAD REPORT ---
EXAM DESCRIPTION: RAD - Abdomen 1 View (KUB) - 01/10/2023 7:07 pm CLINICAL HISTORY: Device placement Dobhoff tube placement FINDINGS: The tip of a Dobhoff tube lies within the lateral aspect of the gastric fundus
--- NOTE | 2023-01-10 20:53 | P.OP ---
Preoperative diagnosis: Lack of vascular access Postoperative diagnosis: The same Primary procedure: Insertion of right femoral venous catheter Anesthesia: Local Estimated blood loss: Less than 10 cc Operative Technique: With the patient in the ICU bed, the right groin area was exposed. Applying gentle traction on the upper part of the abdomen we could identify the inguinal ligament palpate the femoral artery and identify where the vein was. This area was now prepped with a chlorhexidine solution and draped in the usual aseptic manner. A finder needle was used to cannulate the femoral vein. The regular needle was now applied to the syringe and we were able to access the femoral vein. The initial pass with a guidewire met with some resistance. The needle was withdrawn and gentle pressure was applied for 5 minutes. We then reused our needle to enter the femoral vein this time the guidewire passed quite easily the skin incision was widened and a dilator was passed down our guidewire then using a modified Seldinger technique the triple-lumen catheter was placed into the femoral vein. We had good blood flow and return from all 3 ports. The catheter was sutured in place, the line flushed, and at the end of procedure he was in a stable condition. The sterile dressings had been applied. Complications: None Condition: Serious
--- NOTE | 2023-01-10 20:57 | P.CNS ---
Date of Consult: 01/10/23 PC: I was asked to see this patient in regards to the placement of IV access. HPC: Patient has been in the hospital, earlier coded and was brought back. He has been on a pressure drip, but it is through a small peripheral and more sturdy access is required. PSHx: Patient has had a left AV fistula PMHx: Renal failure, on dialysis Social Hx: No known allergies Sys R: Blood pressure is stable at the moment, with a MAP of 52, has been given some IV pain medicine and is also intubated at the moment on a ventilator. O/E: Arousable and appears comfortable. HEENT: NAD. Tends to keep his head turned to the right side, sternocleidomastoids visible on both sides. Chest: Chest movement equal bilaterally, no evidence of any clavicular fractures, no scars from prior implants on the left side of the chest Abd: Negative Concrete: Graft in left arm Impression: Patient requires IV access Plan: On initial exam of the patient, his blood pressure appears to be relatively stable. I would normally place a left subclavian line, obviously his IV access is in that side for his dialysis. The way he carries his neck and is lying in the bed I think a right IJ would be difficult, he is on a ventilator so there is also increased risk with a right subclavian. I normally do not like to place femoral catheters, due to the risk of infection etc. On further discussion with the medical team, they feel he needs better IV access now. I will place a right femoral vein catheter.
[2023-01-10] MEDS: MIRTAZAPINE 15 MG TAB PO SCH (21:57)
[2023-01-10] MEDS: NOREPINEPHRINE 16 MG in Dextrose 5%-Water 500 ML IV SCH (23:03)
[2023-01-11 05:07] LABS: Absolute Lymphocytes (CBC) 1.4 K/uL (0.7-4.9); Lymphocytes % 17.5 % (15.3-44.8); MCV 90.8 fL (80-100); MPV 9.6 fL (7.6-11.3); RBC Red Blood Cell Count 3.64 M/uL (4.33-5.43)
[2023-01-11 05:38] LABS: Phosphorus 7.8 mg/dL (2.5-4.9); Potassium 4.9 mEq/L (3.5-5.1)
[2023-01-11] MEDS: LEVOTHYROXINE SOD 0.05 MG TABLET PO SCH (05:52)
--- NOTE | 2023-01-11 05:59 | HP ---
Date of Admission: 01/09/2023 Chief Complaint: Cough, body ache, and right upper quadrant pain. History Of Present Illness: This is a 77-year-old male patient, came into emergency room yesterday with complaints of dry cough for couple of days with generalized body ache and recurrence of right upper quadrant pain. states that he saw Dr. Ward for this ongoing recurrent right upper quadrant pain and he prescribed him Linzess and Dr. Ward is going to plan to do EGD on him. Meanwhile, he came into emergency room with this complaint. After he was evaluated, he was admitted to the hospital. Allergies: NO KNOWN ALLERGIES. Review of Systems: Gastrointestinal: As mentioned above. Respiratory: As mentioned above. All other systems reviewed and negative. Medications: Atorvastatin 20 mg daily in the evening; allopurinol 100 mg daily;amlodipine 5 mg daily; aspirin 81 mg daily; carvedilol 6.25 mg takes half a tablet on Wednesday, Wednesday, Wednesday; cholestyramine daily; levothyroxine 50 mcg daily; folic acid 1 mg daily; pantoprazole 40 mg daily. Past Medical History: Significant for hypothyroidism, type 2 diabetes mellitus,hypertension, hyperlipidemia, aortic stenosis, mitral regurgitation, end-stage disease on hemodialysis, anemia due to chronic kidney disease, and thrombocytopenia. Past Surgical History: Cataract surgery, cholecystectomy, and skin biopsy. Family History: Father and had diabetes and hypertension. Mother andhad diabetes and hypertension. Brother with diabetes and hypertension and sister also with diabetes and hypertension. Social History: Negative for smoking, alcohol use. Physical Examination: Vital Signs: Height 6 feet, weight 150 pounds, temperature 97.3, pulse 117, respiratory rate 18, blood pressure 119/55, oxygen saturation 96% on room air. General: Awake, alert, oriented, not in distress. HEENT: Head atraumatic, normocephalic. Conjunctivae nonerythematous. Sclerae white. Mouth, no thrush or edema noted. Ears/Nose, no mass, lesion, discharge noted. Neck: Supple. No JVD, lymph nodes, bruit, thyromegaly noted. Lungs: Bilateral good equal air entry. Clear to auscultation. No rhonchi. No rales. Heart: Normal heart sounds, no murmur or gallop. Abdomen: Soft, bowel sounds normal. No guarding, rigidity, tenderness, mass, hepatosplenomegaly, distention, or bruit noted. Extremities: No leg edema. No calf tenderness. Skin: No rash, ulcer, cellulitis. Lymphatics: No lymph node enlargement in neck, supraclavicular, infraclavicular region. Neuro: No focal neurological deficit. Chest: Unremarkable. External Genitalia: Deferred. Rectal: Deferred. Laboratory Data: COVID-19 test negative. Influenza B test positive. Yesterday; white count 5.7, hemoglobin 12.1, platelets 128. This morning; white count 6.6, hemoglobin 11.1, platelets 127. Yesterday; sodium 135, potassium 3.8, chloride 96, bicarb 33, BUN 35, creatinine 4.22, glucose 106. Liver function tests unremarkable. Troponin 112.3, second troponin 127.5, third troponin 116.8. This morning; sodium 134, potassium 3.9, chloride 101, bicarb 28, BUN 38, creatinine 4.74, glucose 114. His proBNP today is 130,933. Procalcitonin 2.18 yesterday. Chest x-ray shows mild bilateral pulmonary opacity. CAT scan of the chest, abdomen, and pelvis shows 18 mm left upper lobe ground-glass nodule, no acute intra-abdominal findings. Small right pleural effusion. Impression: 1. Influenza A with respiratory manifestation. 2. Pulmonary edema. 3. Chronic diastolic heart failure. 4. Right upper quadrant abdominal pain. 5. Pulmonary nodule. 6. End-stage renal disease, on hemodialysis. 7. Anemia due to chronic kidney disease. 8. Hypertension. 9. Type 2 diabetes mellitus. 10. Hyperlipidemia. 11. Hypothyroidism. Plan: Admit the patient to hospital for further evaluation and management of this problem. The patient is appropriate for inpatient and is expected to spend 2 midnights in hospital. We will order heparin 5000 units subcutaneous injection every 12 hours for DVT prophylaxis. Empiric antibiotic that the patient currently has will be continued for pneumonia. For influenza, the patient received 75 mg of Tamiflu in the emergency room last night and we will go ahead and order Tamiflu 30 mg after dialysis on Wednesday and Wednesday. For right upper quadrant pain, the patient will need to continue to follow with sales review clerk, Dr. Ward, no need for any further intervention right now. For pulmonary nodule, no need for further intervention except monitoring on outpatient basis. We will consult flex o writer operator for end-stage renal disease. Blood pressure medications will be continued per order. Details and plan of treatment discussed with the patient and the patient's . The patient is requesting some pain medications for his right upper quadrant pain and considering he is also having cough, we will go ahead and give him cough syrup with codeine, which would address both cough and pain problem. NADIA/WILLIAM Voice ID: [id number]
[2023-01-11] MEDS: carvediloL 6.25 MG TAB PO SCH ×2 (07:31→16:07)
[2023-01-11] MEDS: AMLODIPINE 10 MG TAB PO SCH (07:31)
[2023-01-11] MEDS: ALBUMIN HUMAN 25% 100 ML IV ONE ×2 (07:46→18:30)
--- NOTE | 2023-01-11 07:52 | P.PN ---
Nephrology note (S) Yesterday's events noted, pt seen this AM in the ICU, on vent but off sedation, on SBT, resp tech at bedside, pt following commands. Still on low dose Levophed (O) Vitals reviewed in the EMR General: Other (Cachectic, chronically ill appearing) HEENT: Atraumatic, Normocephalic, ET present Neck: Supple Respiratory: b/l vent BS, no wheezes/rhonchi Cardiovascular: Regular rate/rhythm Gastrointestinal: Soft and benign (Scaphoid), No tenderness Musculoskeletal: Other (Muscle mass loss), Lt UE AVF Integumentary: No tenderness/swelling Neurological: Awake, follows single step commands Laboratory Data (last 24 hrs) Reviewed at the EMR Conclusions/Impression: ESRD on HD MWF -Will plan for HD today for metab clearance and UF. Acute hypoxic respiratory failure and cardiapulmonary arrest unspecified -Unclear trigger other Influenza B positive infection on admission, underlying cardiomyopathy/valvular heart disease, other. Currently stable although on low dose pressor support. Will plan to dialyze and perform UF of 2L if tolerated. Diastolic CHF, acute on chronic -CXR with worsened pulm infiltrates, superimposed cardiogenic pulm edema -vent weaning post HD Terry Packer MD, SHAYAN
[2023-01-11] MEDS: ASPIRIN EC 81 MG TAB PO SCH (08:24)
[2023-01-11] MEDS: PANTOPRAZOLE 40MG TABLET PO SCH ×2 (08:24→08:37)
[2023-01-11] MEDS: FAMOTIDINE 20 MG/2 ML VIAL IV SCH ×2 (08:24→08:25)
[2023-01-11] MEDS: GUAIFENESIN/CODEINE 5ML UCUP PO SCH ×4 (08:24→20:23)
[2023-01-11] MEDS: VITAMIN D 1000 UNIT TAB PO SCH (08:24)
[2023-01-11] MEDS: allopurinoL 100 MG TAB PO SCH (08:24)
[2023-01-11] MEDS: FOLIC ACID 1 MG TABLET PO SCH (08:24)
[2023-01-11] MEDS: CEFTRIAXONE 1,000 MG in NA CHLORIDE 0.9% 50 ML IVPB SCH ×2 (08:24→20:24)
[2023-01-11] MEDS: Linaclotide [Linzess] 72 MCG Capsule PO SCH (08:25)
[2023-01-11] MEDS: NEPRO 1,000 ML BOT RTH SCH ×2 (08:25→20:24)
[2023-01-11] MEDS: AZITHROMYCIN IV 250 MG in NA CHLORIDE 0.9% 250 ML IVPB SCH (08:25)
[2023-01-11] MEDS: HEPARIN 5000 UNIT/ML 1 ML VIAL SQ SCH ×2 (08:30→20:22)
[2023-01-11] MEDS: Pantoprazole (granules) 40 MG/BLIST PACKET PO SCH (09:50)
--- NOTE | 2023-01-11 09:50 | RAD REPORT ---
EXAM DESCRIPTION: RAD - Chest Single View - 01/11/2023 9:36 am CLINICAL HISTORY: resp failure Chest pain. COMPARISON: Abdomen 1 View (KUB) dated 01/10/2023; Chest Single View dated 01/10/2023; Chest Single Vi ew dated 01/08/2023; Chest Single View dated 10/29/2022 FINDINGS: Portable technique limits examination quality. [id number] interstitial opacities are present, greater on the right. The heart is mildly promin ent. Tip of the endotracheal tube is at the level of superior aortic arch.Enteric tube is coiled in t he stomach.
[2023-01-11] MEDS ORDERED: ALBUMIN HUMAN 25% 100 ML IV ONE (12:00)
--- NOTE | 2023-01-11 12:04 | EKG ---
Test Date: 2023-01-10 Test Time: 11:45:35 Plant Safety Leader: PAUL MEASUREMENT RESULTS: Intervals: Rate: 105 [place]: QRSD: 160 QT: 388 QTc: 512 [place]: P: WA: QRS: -68 T: 86 INTERPRETIVE STATEMENTS: Wide QRS rhythm Right bundle branch block Left anterior fascicular block Bifascicular block Abnormal ECG Compared to ECG 01/08/2023 19:55:38 Uncertain supraventricular rhythm now present Right bundle-branch block now present Bifascicular block now present Accelerated junctional rhythm no longer present Left ventricular hypertrophy no longer present Early repolarization no longer present Electronically Signed On 01-11-23 12:00:41 CDT by Carroll Vidal
--- NOTE | 2023-01-11 12:04 | EKG ---
Test Date: 2023-01-10 Test Time: 11:47:18 Medical Appliance Maker: PAUL MEASUREMENT RESULTS: Intervals: Rate: 103 PA: 168 QRSD: 152 QT: 378 QTc: 495 [place]: P: PA: 168 QRS: -66 T: 89 INTERPRETIVE STATEMENTS: Sinus tachycardia Right bundle branch block Left anterior fascicular block Bifascicular block Abnormal ECG Compared to ECG 01/10/2023 11:45:35 Uncertain supraventricular rhythm no longer present Bifascicular block still present Electronically Signed On 01-11-23 12:00:40 CDT by Carroll Vidal
--- NOTE | 2023-01-11 12:09 | EKG ---
Test Date: 2023-01-08 Test Time: 19:55:38 Car Dumper Operator Helper: LUIS EDUARDO MEASUREMENT RESULTS: Intervals: Rate: 122 PA: QRSD: 114 QT: 358 QTc: 510 [place]: P: PA: QRS: -58 T: 115 INTERPRETIVE STATEMENTS: Accelerated Junctional rhythm Left anterior fascicular block Left ventricular hypertrophy with repolarization abnormality Abnormal ECG Compared to ECG 10/29/2022 09:12:11 Accelerated junctional rhythm now present Left anterior fascicular block now present Early repolarization now present Sinus rhythm no longer present First degree AV block no longer present T-wave abnormality no longer present Prolonged QT interval no longer present Electronically Signed On 01-11-23 12:01:21 CDT by Carroll Vidal
--- NOTE | 2023-01-11 12:20 | P.CNS ---
Date of Consult: 01/11/23 Reason for Consult: Respiratory failure Chief Complaint: Weakness, cough, malaise History of Present Illness: Patient is 69 years of age who is got end-stage renal disease on dialysis admitted with nausea weakness cardiac arrest was intubated yesterday hypotensive started on vasopressors currently he is very alert very low-dose of Levophed Allergies No Known Allergies Allergy (Verified 01/09/23 11:23) Home Medications: allopurinoL [Allopurinol] 1 tab PO DAILY 09/05/18 Pantoprazole Sodium 40 mg PO DAILY 10/14/22 Amlodipine [Norvasc*] 10 mg PO DAILY 10/25/22 Aspirin [Aspirin EC 81 MG] 81 mg PO DAILY 10/25/22 Atorvastatin Calcium 20 mg PO DAILY AT SUPPER 10/25/22 Cholecalciferol (Vitamin D3) [Vitamin D3] 1,000 units PO DAILY 10/25/22 Folic Acid 1 mg PO DAILY 10/25/22 carvediloL [Carvedilol] 6.25 mg PO BID 10/25/22 Levothyroxine [Synthroid*] 1 tab PO DAILY 10/30/22 Linaclotide [Linzess] 72 mcg PO DAILY 01/09/23 - Past Medical/Surgical History Diabetic: Yes -: Lupus -: HTN -: NIDDM -: CVA 2003 -: ESRD (Dr. Avery) -: Diastolic CHF/ / MR & TR/ Pulmonary HTN -: Anemia -: Hypothyroidism -: Cholecystectomy -: shunt in left arm for HD - Family History Father Medical History: Hypertension, Diabetes Mother Medical History: Hypertension, Diabetes Brother Medical History: Hypertension, Diabetes Sister Medical History: Hypertension, Diabetes - Social History Smoking Status: Unknown if ever smoked Alcohol use: No CD- Drugs: No Caffeine use: No Place of Residence: Home Domestic Violence: Patient's denies sexual, physical, or financial abuse. Review of Systems is unable to be obtained Physical Examination Temp Pulse Resp BP Pulse Ox 98.2 F 83 16 123/26 L 100 01/11/23 08:00 01/11/23 10:30 01/11/23 10:30 01/11/23 10:30 01/11/23 10:30 General: Alert, Cooperative Neck: Supple Respiratory: Clear to auscultation bilaterally, Diminished Cardiovascular: No edema, Normal pulses, Regular rate/rhythm - Problems (1) Respiratory failure Current Visit: Yes Status: Acute Plan: Patient is 77 years of age developed cardiac arrest intubated is currently back to his baseline labs reviewed chest x-ray is clear no evidence of sepsis to wean off and extubate after dialysis today is no clinical evidence of pneumonia DC azithromycin for now vital signs are stable cultures negative Qualifiers: Chronicity: acute
[2023-01-11] MEDS ORDERED: ATROPINE SULF 1 MG/10 ML SYR IV ONE (14:04)
[2023-01-11] MEDS ORDERED: EPINEPHrine 1 MG/10 ML SYR IV ONE (14:04)
[2023-01-11 14:29] LABS: Hepatitis B surface AG Interp. Nonreactive (Nonreactive)
[2023-01-11] MEDS: ATORVASTATIN 20 MG TAB PO SCH (17:14)
[2023-01-11] MEDS: MIRTAZAPINE 15 MG TAB PO SCH (20:23)
--- NOTE | 2023-01-11 21:23 | PN ---
Date of Progress Note: 01/11/2023 Subjective: The patient was seen this morning for followup, he was in ICU. Yesterday, the patient's condition deteriorated after I saw him. When I saw him in the morning, his was with him at bed side and he was stable. No complaints or problems reported at that time and subsequently all of a [place] dden he went into cardiopulmonary arrest and he received CPR, epinephrine and atropine. He did not r equire any electrical shock. He was intubated and was transferred to ICU. Cardiology and Pulmonary consultation was requested. He has received Levophed drip to help maintain blood pressure. This mor ashok when I saw him, he was awake, alert, following simple commands, moving all the 4 extremities equ ally. Did not have any other specific complaints or problems reported by ICU staff. Objective: Vital Signs: Reviewed. HEENT: Unremarkable. Lungs: Clear to auscultation. Heart: Sounds normal with presence of systolic murmur unchanged. Abdomen: Soft. Bowel sounds normal. No guarding, rigidity, tenderness, or distention. Extremities: No leg edema. Laboratory Data: White count this morning 8.1, hemoglobin 10.6, and platelets 156. Sodium 136, pota ssium 4.9, chloride 102, bicarb 25, BUN 61, creatinine 7.16, and glucose 147. Impression: 1.Cardiopulmonary arrest. 2.Aortic stenosis with aortic regurgitation. 3.Mitral stenosis with mitral regurgitation. 4.End-stage renal disease, on hemodialysis. 5.Pneumonia. 6.Influenza with respiratory manifestation. 7.Anemia due to chronic kidney disease. Plan: We will go ahead and continue to follow with manager rn case and the paper products inspector as well as pulm onologist. Echo was ordered to be done today. Later this afternoon nurse contacted me and informed me about possible extubation today and after extubation NG tube will be discontinued as well. We mae l continue to follow with manager rn case and editor department. The patient did receive dialysis today and I will see him tomorrow for followup. NADIA/MODL Voice ID: [id number] Report ID: [id number]
[2023-01-12 05:55] LABS: Phosphorus 6.5 mg/dL (2.5-4.9); Potassium 4.3 mEq/L (3.5-5.1)
[2023-01-12] MEDS: LEVOTHYROXINE SOD 0.05 MG TABLET PO SCH (06:06)
--- NOTE | 2023-01-12 07:41 | RAD REPORT ---
EXAM DESCRIPTION: RAD - Chest Single View - 01/12/2023 5:04 am CLINICAL HISTORY: resp failure COMPARISON: Chest Single View dated 01/11/2023; Abdomen 1 View (KUB) dated 01/10/2023; Chest Single Vi ew dated 01/10/2023; Chest Single View dated 01/08/2023; Chest Single View dated 12/26/2017; Chest Abd Pe lvis Wo Con dated 01/08/2023; Thorax Wo Con dated 12/16/2022 FINDINGS: Lines: NG tube in ET tube been removed. Lungs: Similar widespread bilateral interstitial airspace disease. Pleural: No significant pleural effusions or pneumothorax. Cardiac: Mild cardiomegaly. Mediastinum: Within normal limits. Bones: No acute fractures. Other: None IMPRESSION: Similar widespread bilateral airspace disease which likely reflects edema.
[2023-01-12] MEDS: carvediloL 6.25 MG TAB PO SCH ×2 (08:00→17:00)
[2023-01-12] MEDS: Linaclotide [Linzess] 72 MCG Capsule PO SCH (08:44)
[2023-01-12] MEDS: AMLODIPINE 10 MG TAB PO SCH (08:45)
[2023-01-12] MEDS: Pantoprazole (granules) 40 MG/BLIST PACKET PO SCH (08:47)
[2023-01-12] MEDS: allopurinoL 100 MG TAB PO SCH (08:47)
[2023-01-12] MEDS: ASPIRIN EC 81 MG TAB PO SCH (08:47)
[2023-01-12] MEDS: HEPARIN 5000 UNIT/ML 1 ML VIAL SQ SCH ×2 (08:47→21:55)
[2023-01-12] MEDS: FOLIC ACID 1 MG TABLET PO SCH (08:47)
[2023-01-12] MEDS: VITAMIN D 1000 UNIT TAB PO SCH (08:48)
[2023-01-12] MEDS: NEPRO 1,000 ML BOT RTH SCH ×2 (08:48→21:00)
[2023-01-12] MEDS: CEFTRIAXONE 1,000 MG in NA CHLORIDE 0.9% 50 ML IVPB SCH ×2 (08:48→21:57)
[2023-01-12] MEDS: GUAIFENESIN/CODEINE 5ML UCUP PO SCH ×4 (08:48→21:56)
[2023-01-12] MEDS: MIDODRINE HCL 5 MG TABLET PO SCH ×2 (12:48→21:57)
[2023-01-12] MEDS: FUROSEMIDE 40 MG/4 ML VIAL IV SCH ×2 (12:48→21:56)
--- NOTE | 2023-01-12 15:10 | P.PN ---
Nephrology note (S) Delayed entry note, pt seen this AM in the ICU, remained on low dose Levophed for marginal pressures, O2 sats 100% on LFNC, no resp distress (O) Vitals reviewed in the EMR General: Other (Cachectic, chronically ill appearing). Extubated HEENT: Atraumatic, Normocephalic, LFNC Neck: Supple Respiratory: Poor resp effort, no wheezes/rhonchi on anterior auscultation Cardiovascular: Regular rate/rhythm Gastrointestinal: Soft and benign (Scaphoid), No tenderness Musculoskeletal: Other (Muscle mass loss), Lt UE AVF Integumentary: No tenderness/swelling Neurological: Awake, follows single step commands Laboratory Data (last 24 hrs) Reviewed at the EMR Conclusions/Impression: ESRD on HD MWF -s/p HD yesterday for metab clearance and UF. Acute hypoxic respiratory failure and cardiapulmonary arrest unspecified -Unclear trigger other Influenza B positive infection on admission, underlying cardiomyopathy/valvular heart disease, arrthymia (EKG on the showed prolonged QRS, QTC and other). Currently stable although remains on low dose pressor support. Will try low dose Midodrine to wean off Levophed Diastolic CHF, acute on chronic -CXR this weekend with worsened pulm infiltrates, superimposed cardiogenic pulm edema -UF of 2L performed yesterday, extubated successfully. Held additional HD/UF today as BP was marginal Terry Packer MD, SHAYAN
[2023-01-12] MEDS: ATORVASTATIN 20 MG TAB PO SCH (17:17)
[2023-01-12] MEDS ORDERED: TRIAMCINOLONE ACET 0.1% CREAM 80 GM TOP PRN (19:49)
--- NOTE | 2023-01-12 20:28 | PN ---
Date of Progress Note: 01/12/2023 Subjective: The patient was seen this morning for followup. He was extubated yesterday. This pedroni ng when I saw him, he was in ICU, still requiring very minimal dose of vasopressor medication Levophe d. His systolic blood pressure was 112, but without using Levophed, his blood pressure drops down to systolic blood pressure in the range of 80 to 90. Objective: Vital Signs: Reviewed. HEENT: Unremarkable. Lungs: Clear to auscultation. Heart: Sounds normal. Abdomen: Soft. Bowel sounds normal. No guarding, rigidity, tenderness, or distention. Extremities: No leg edema. Laboratory Data: Sodium 135, potassium 4.3, chloride 100, bicarb 28, BUN 40, creatinine 5.45, and gl ucose 123. Impression: 1.Acute respiratory failure, resolved. 2.Influenza B with respiratory manifestation. 3.Pneumonia. 4.End-stage renal disease, on hemodialysis. 5.Anemia due to chronic kidney disease. Plan: We will go ahead and continue to follow with program director scouting. Continue current antibiotics. The patient received second dose of Tamiflu yesterday after dialysis and we will continue his current ce ftriaxone. Continue current DVT prophylaxis and we will work on weaning off Levophed and once we were able to discontinue it, we will transfer him out of ICU to regu lar room. NADIA/MODL Voice ID: [id number] Report ID: [id number]
[2023-01-12] MEDS: MIRTAZAPINE 15 MG TAB PO SCH (21:57)
[2023-01-13 04:56] LABS: Absolute Lymphocytes (CBC) 1.4 K/uL (0.7-4.9); Hematocrit 32.7 % (39.6-49.0); Lymphocytes % 16.1 % (15.3-44.8); MCV 92.1 fL (80-100); MPV 9.6 fL (7.6-11.3); RBC Red Blood Cell Count 3.55 M/uL (4.33-5.43)
[2023-01-13 05:39] LABS: Magnesium 2.1 mg/dL (1.6-2.4); Phosphorus 7.1 mg/dL (2.5-4.9); Potassium 4.5 mEq/L (3.5-5.1)
[2023-01-13] MEDS: LEVOTHYROXINE SOD 0.05 MG TABLET PO SCH (05:55)
[2023-01-13] MEDS: carvediloL 6.25 MG TAB PO SCH ×2 (07:43→17:00)
[2023-01-13] MEDS: AMLODIPINE 10 MG TAB PO SCH (07:43)
[2023-01-13] MEDS: Linaclotide [Linzess] 72 MCG Capsule PO SCH (07:44)
[2023-01-13] MEDS: MIDODRINE HCL 5 MG TABLET PO SCH ×2 (07:46→20:43)
[2023-01-13] MEDS: VITAMIN D 1000 UNIT TAB PO SCH (07:46)
[2023-01-13] MEDS: HEPARIN 5000 UNIT/ML 1 ML VIAL SQ SCH ×2 (07:46→20:43)
[2023-01-13] MEDS: ASPIRIN EC 81 MG TAB PO SCH (07:46)
[2023-01-13] MEDS: allopurinoL 100 MG TAB PO SCH (07:46)
[2023-01-13] MEDS: CEFTRIAXONE 1,000 MG in NA CHLORIDE 0.9% 50 ML IVPB SCH ×2 (07:47→20:42)
[2023-01-13] MEDS: FUROSEMIDE 40 MG/4 ML VIAL IV SCH ×2 (07:47→20:42)
[2023-01-13] MEDS: Pantoprazole (granules) 40 MG/BLIST PACKET PO SCH (07:47)
[2023-01-13] MEDS: FOLIC ACID 1 MG TABLET PO SCH (07:48)
[2023-01-13] MEDS: GUAIFENESIN/CODEINE 5ML UCUP PO SCH ×4 (07:50→20:41)
[2023-01-13] MEDS: ALBUMIN HUMAN 25% 100 ML IV ONE ×2 (08:14→09:45)
--- NOTE | 2023-01-13 08:44 | ECHO ---
HEIGHT: 6 ft 0 in WEIGHT: 149 lb 4 oz DATE OF STUDY: 01/12/[address]: Theodore Vanessa MD 2-DIMENSIONAL: YES M.MODE: YES DOPPLER: YES COLOR FLOW: YES TDS: NO PORTABLE: YES DEFINITY: NO BUBBLE STUDY: NO DIAGNOSIS: ELEVATED TROPONIN CARDIAC HISTORY: CATHERIZATION: NO SURGERY: NO PROSTHETIC VALVE: NO PACEMAKER: NO MEASUREMENTS (cm) DIASTOLIC (NORMALS) SYSTOLIC (NORMALS) IVSd 1.1 (0.6-1.2) LA Diam 2.8 (1.9-4.0) LVEF 46% LVIDd 6.0 (3.5-5.7) LVIDs 4.6 (2.0-3.5) %FS 23% LVPWd 1.1 (0.6-1.2) Ao Diam 2.7 (2.0-3.7) 2 DIMENSIONAL ASSESSMENT: RIGHT ATRIUM: NORMAL LEFT ATRIUM: NORMAL RIGHT VENTRICLE: NORMAL LEFT VENTRICLE: DILATED TRICUSPID VALVE: NORMAL MITRAL VALVE: MITRAL ANNULAR CALCIFICATION PULMONIC VALVE: NORMAL AORTIC VALVE: STENOTIC PERICARDIAL EFFUSION: NONE AORTIC ROOT: NORMAL LEFT VENTRICULAR WALL MOTION: MILD GLOBAL HYPOKINESIS. DOPPLER/COLOR FLOW: SEE BELOW. COMMENTS: 1. MODERATE AORTIC STENOSIS. AORTIC VALVE AREA 1.3 CENTIMETERS SQUARED. 2. SEVERE AORTIC REGURGITATION. 3. MODERATE MITRAL REGURGITATION. 4. MITRAL ANNULAR CALCIFICATION. 5. LEFT VENTRICULAR EJECTION FRACTION 46%. TECHNOLOGIST: SIMIN EWING
[2023-01-13 08:59] LABS: Anisocytosis 2+; Blood Morphology Comment NOTED (NOT SEEN); Hypersegmented Neutrophils PRESENT; Platelet Estimate ADEQ
[2023-01-13 09:00] LABS: Howell-Jolly Bodies NOTED; Macrocytosis 1+
[2023-01-13] MEDS ORDERED: ALBUMIN HUMAN 25% 100 ML IV ONE (09:00)
[2023-01-13] MEDS: NEPRO 1,000 ML BOT RTH SCH ×2 (09:00→20:40)
--- NOTE | 2023-01-13 11:47 | P.PN ---
Nephrology note (S) Pt seen on HD, tolerating session, still on Levophed, with pt's low DBP, MAPs remain low but pt asymptomatic largely (O) Vitals reviewed in the EMR General: Other (Cachectic, chronically ill appearing). Extubated HEENT: Atraumatic, Normocephalic, LFNC Neck: Supple Respiratory: Poor resp effort, no wheezes/rhonchi on anterior auscultation Cardiovascular: Regular rate/rhythm Gastrointestinal: Soft and benign (Scaphoid), No tenderness Musculoskeletal: Other (Muscle mass loss), Lt UE AVF Integumentary: No tenderness/swelling Neurological: Awake, responses are harder to make out, follows single step commands Laboratory Data (last 24 hrs) Reviewed at the EMR Conclusions/Impression: ESRD on HD MWF -HD today for metab clearance and UF. Acute hypoxic respiratory failure and cardiapulmonary arrest unspecified -Unclear trigger other Influenza B positive infection on admission, underlying cardiomyopathy/valvular heart disease, arrthymia (EKG on the showed prolonged QRS, QTC and other). Currently stable although remains on low dose pressor support. Will try low dose Midodrine to wean off Levophed Diastolic CHF, acute on chronic -CXR this weekend with worsened pulm infiltrates, superimposed cardiogenic pulm edema -UF of 2L performed Wed, extubated successfully. Held additional HD/UF yesterday as BP was marginal, attempting 1.9L off today Terry Packer MD, SHAYNA
[2023-01-13] MEDS: NOREPINEPHRINE 16 MG in Dextrose 5%-Water 500 ML IV SCH (12:24)
--- NOTE | 2023-01-13 12:55 | PN ---
Date of Progress Note: 01/11/2023 Mr. Carbajal overnight apparently had what sounds like a cardiac arrest without any significant arrhyt hmia that is documented. He became diaphoretic what sounds like was pulseless, but we do not have an y documentation of VT, VFib, bradycardia, or asystole. Nevertheless, he was intubated, brought down to the ICU. He had came in with influenza. He is known to have valvular heart disease, diastolic co ngestive heart failure. He is on dialysis. He has hypertension, cholesterol, diabetes. Dr. Vanessa is following him today. He is on mechanical ventilation. PO2 170, pCO2 37, pH is 7.38. His creatinin e is 7.16. He is now on Levophed for hypotension, this hopefully will be weaned off soon. Echocardi ogram remains pending. He is on heparin subcu. He is on antibiotics. We will continue to follow. No change in therapy for now. I will discuss the case further with Dr. Vanessa. SANDRA/WILLIAM Voice ID: [id number] Report ID: [id number]
[2023-01-13] MEDS ORDERED: LORazepam 2 MG/ML VIAL IV PRN (14:38)
[2023-01-13] MEDS: ATORVASTATIN 20 MG TAB PO SCH (17:00)
[2023-01-13] MEDS: MIRTAZAPINE 15 MG TAB PO SCH (20:43)
--- NOTE | 2023-01-14 00:26 | PN ---
Date of Progress Note: 01/13/2023 Subjective: The patient was seen this morning for followup. He was lying in bed, not in distress. Objective: Vital Signs: Reviewed. HEENT: Unremarkable. Lungs: Clear to auscultation. Heart: Sounds normal. Abdomen: Soft. Bowel sounds normal. No guarding, rigidity, tenderness, or distention. Extremities: No leg edema. Laboratory Data: White count 8.8, hemoglobin 10.3, and platelets 120. Sodium 135, potassium 4.5, ch loride 99, bicarb 27, BUN 56, creatinine 0.56, and glucose 141. Impression: 1.Cardiopulmonary arrest, stable. 2.End-stage renal disease, on hemodialysis. 3.Influenza B with respiratory manifestation. 4.Pneumonia. 5.Anemia due to chronic kidney disease. 6.Encephalopathy, metabolic. Plan: We will continue current antibiotics. The patient will have dialysis today and he will get hi s last dose of Tamiflu after dialysis today. Physical Therapy to continue to work with the patient. We will continue to follow with region manager. Echocardiogram was done yesterday, result pending. T he patient did have episodes of confusion today. He was trying to pull his central line out and had restlessness, agitation and when nurse contacted me, Ativan was ordered and restraint was ordered for p.r.n. Hopefully, we will be able to stop his vasopressor medication today. I did communicate with the patient's regarding all the details and Social Service was consulted to help with the discha rge planning. NADIA/MODL Voice ID: [id number] Report ID: [id number]
[2023-01-14 04:44] LABS: Absolute Lymphocytes (CBC) 0.7 K/uL (0.7-4.9); Hematocrit 31.6 % (39.6-49.0); Lymphocytes % 10.1 % (15.3-44.8); MPV 9.6 fL (7.6-11.3)
[2023-01-14 05:09] LABS: Phosphorus 5.4 mg/dL (2.5-4.9); Potassium 3.9 mEq/L (3.5-5.1)
[2023-01-14] MEDS: LEVOTHYROXINE SOD 0.05 MG TABLET PO SCH (06:30)
[2023-01-14] MEDS: HEPARIN 5000 UNIT/ML 1 ML VIAL SQ SCH ×2 (08:17→20:52)
[2023-01-14] MEDS: VITAMIN D 1000 UNIT TAB PO SCH (08:18)
[2023-01-14] MEDS: allopurinoL 100 MG TAB PO SCH (08:18)
[2023-01-14] MEDS: ASPIRIN EC 81 MG TAB PO SCH (08:18)
[2023-01-14] MEDS: FOLIC ACID 1 MG TABLET PO SCH (08:18)
[2023-01-14] MEDS: CEFTRIAXONE 1,000 MG in NA CHLORIDE 0.9% 50 ML IVPB SCH ×2 (08:18→20:55)
[2023-01-14] MEDS: MIDODRINE HCL 5 MG TABLET PO SCH ×2 (08:18→20:53)
[2023-01-14] MEDS: Pantoprazole (granules) 40 MG/BLIST PACKET PO SCH (08:23)
[2023-01-14] MEDS: NEPRO 1,000 ML BOT RTH SCH ×2 (08:27→20:54)
--- NOTE | 2023-01-14 08:36 | RAD REPORT ---
[facility]AM DES[facility] 7:48 am CLINICAL HISTORY: respi failure COMPARISON: Chest Single View dated 01/12/2023; Chest Single View dated 01/11/2023; Abdomen 1 View ([facility]) dated 01/10/2023; Chest Single View dated 01/10/2023 TECHNIQUE: Portable AP view of the chest. FINDINGS: Bilateral fluffy opacities and prominence of the central vascular markings. No pneumothora x or effusion. Moderate cardiomegaly. Mediastinal contours are otherwise unremarkable. IMPRESSION: Stable findings suggestive of pulmonary edema versus ARDS.
[2023-01-14] MEDS: GUAIFENESIN/CODEINE 5ML UCUP PO SCH ×4 (09:00→20:53)
[2023-01-14] MEDS: Linaclotide [Linzess] 72 MCG Capsule PO SCH (09:00)
[2023-01-14] MEDS: FUROSEMIDE 40 MG/4 ML VIAL IV SCH ×2 (09:00→20:55)
--- NOTE | 2023-01-14 11:02 | P.PN ---
Nephrology note (S) Per pt was more confused and restless post HD yesterday although I did not receive any calls from staff. This AM he is resting comfortably, he is off Levophed drip (O) Vitals reviewed in the EMR General: Other (Cachectic, chronically ill appearing). Extubated HEENT: Atraumatic, Normocephalic, LFNC Neck: Supple Respiratory: Poor resp effort, no wheezes/rhonchi on anterior auscultation Cardiovascular: Regular rate/rhythm Gastrointestinal: Soft and benign (Scaphoid), No tenderness Musculoskeletal: Other (Muscle mass loss), Lt UE AVF Integumentary: No tenderness/swelling Neurological: Awake, responses are harder to make out, follows single step commands Laboratory Data (last 24 hrs) Reviewed at the EMR Conclusions/Impression: ESRD on HD MWF -HD performed yesterday for metab clearance and UF. Acute hypoxic respiratory failure and cardiapulmonary arrest unspecified. Hypotension, other -Unclear trigger other Influenza B positive infection on admission, underlying cardiomyopathy/valvular heart disease, arrthymia (EKG on the showed prolonged QRS, QTC and other). Currently stable and now off low dose pressor support. Will try low dose Midodrine to wean off Levophed Diastolic CHF, acute on chronic -CXR this past weekend with worsened pulm infiltrates, superimposed cardiogenic pulm edema -UF of 2L performed Wed, extubated successfully. Held additional HD/UF as BP was marginal, but removed another 2L Wed. Stable currently Terry Packer MD, SHAYAN
[2023-01-14] MEDS: ATORVASTATIN 20 MG TAB PO SCH (18:40)
[2023-01-14] MEDS ORDERED: NOREPINEPHRINE 16 MG in Dextrose 5%-Water 500 ML IV SCH (19:00)
[2023-01-14] MEDS: MIRTAZAPINE 15 MG TAB PO SCH (20:52)
--- NOTE | 2023-01-14 22:44 | PN ---
Date of Progress Note: 01/14/2023 Subjective: Patient was seen this morning for followup. No new complaints or problems reported by the patient. Lying in bed, not in any distress. His vasopressor medication was discontinued yesterday afternoon and this morning when I saw him, his systolic blood pressure was between 100 to 110. Maintaining adequate oxygenation with nasal cannula oxygen 2 L/minute. Objective: Vital Signs: Reviewed. HEENT: Unremarkable. Lungs: Clear to auscultation. Heart: Sounds normal, presence of systolic murmur unchanged. Abdomen: Soft. Bowel sounds normal. No guarding, rigidity, tenderness, or distention. Extremities: No leg edema. Laboratory Data: White count 7.2, hemoglobin 10, platelets 77. Sodium 139, potassium 3.9, chloride 104, bicarb 26, BUN 40, creatinine 5.17, glucose 98. Impression: 1. Hypotension. 2. Aortic stenosis with aortic regurgitation. 3. Mitral regurgitation. 4. End-stage renal disease, on hemodialysis. 5. Anemia due to chronic kidney disease. 6. Thrombocytopenia. 7. Pneumonia. Plan: We will go ahead and continue current antibiotic. The patient received his last dose of Tamiflu yesterday and that completes his antiviral therapy. He will continue to follow with department sales manager and biztalk architect. This morning when I saw him, he was stable and our plan was to transfer him out of ICU to regular room. Chest x-ray was done, which was unchanged from before. While he was waiting in ICU, his blood pressure started to drop down again to the systolic blood pressure between 82 to 90, so obviously we will cancel transfer and the patient will be started back on vasopressor medication. Continue dialysis support per department sales manager. I will see him tomorrow for followup and I will communicate with him. NADIA/MODL Voice ID: [id number] Report ID: [id number] TASHI
[2023-01-15] MEDS: LEVOTHYROXINE SOD 0.05 MG TABLET PO SCH (05:57)
[2023-01-15 07:33] LABS: Absolute Lymphocytes (CBC) 0.9 K/uL (0.7-4.9); Lymphocytes % 10.5 % (15.3-44.8); MCV 93.2 fL (80-100); MPV 10.1 fL (7.6-11.3); RBC Red Blood Cell Count 3.97 M/uL (4.33-5.43)
[2023-01-15 07:48] LABS: Magnesium 2.2 mg/dL (1.6-2.4); Phosphorus 6.1 mg/dL (2.5-4.9)
[2023-01-15 07:54] LABS: Albumin 2.9 g/dL (3.4-5.0); Bilirubin Total 0.9 mg/dL (0.2-1.0); Potassium 4.2 mEq/L (3.5-5.1); Protein, Total 7.7 g/dL (6.4-8.2)
[2023-01-15] MEDS ORDERED: SODIUM CHLORIDE 0.9% 10ML INJ IV ONE (08:00)
[2023-01-15] MEDS ORDERED: COSYNTROPIN 0.25 MG VIAL IV ONE (08:00)
[2023-01-15] MEDS: Linaclotide [Linzess] 72 MCG Capsule PO SCH (09:00)
[2023-01-15] MEDS: NEPRO 1,000 ML BOT RTH SCH ×2 (09:00→21:49)
[2023-01-15] MEDS: MIDODRINE HCL 5 MG TABLET PO SCH ×3 (09:43→21:49)
[2023-01-15] MEDS: GUAIFENESIN/CODEINE 5ML UCUP PO SCH ×4 (09:43→21:50)
[2023-01-15] MEDS: FOLIC ACID 1 MG TABLET PO SCH (09:43)
[2023-01-15] MEDS: CEFTRIAXONE 1,000 MG in NA CHLORIDE 0.9% 50 ML IVPB SCH ×2 (09:43→21:50)
[2023-01-15] MEDS: allopurinoL 100 MG TAB PO SCH (09:43)
[2023-01-15] MEDS: ASPIRIN EC 81 MG TAB PO SCH (09:43)
[2023-01-15] MEDS: VITAMIN D 1000 UNIT TAB PO SCH (09:44)
[2023-01-15] MEDS: Pantoprazole (granules) 40 MG/BLIST PACKET PO SCH (09:44)
[2023-01-15] MEDS: HEPARIN 5000 UNIT/ML 1 ML VIAL SQ SCH ×2 (09:45→21:49)
[2023-01-15] MEDS: FUROSEMIDE 40 MG/4 ML VIAL IV SCH (09:46)
--- NOTE | 2023-01-15 12:02 | P.PN ---
Nephrology note (S) Remains in the ICU, did not eat any breakfast this AM, BP still soft, case discussed extensively with his at bedside and then later Dr. Vanessa joined as well. expresses some interest in switching to DNR status in light of last weekend's event and pt's current frail state and while plan currently is to go to SNF to see if he can regain some strength, we discussed re-assessing goals of care in the event of any further decline (O) Vitals reviewed in the EMR General: Other (Cachectic, chronically ill appearing). Extubated HEENT: Atraumatic, Normocephalic, LFNC Neck: Supple Respiratory: Poor resp effort, no wheezes/rhonchi on anterior auscultation Cardiovascular: Regular rate/rhythm Gastrointestinal: Soft and benign (Scaphoid), No tenderness Musculoskeletal: Other (Muscle mass loss), Lt UE AVF Integumentary: No tenderness/swelling Neurological: Awake, mildly restless, responses are harder to make out, follows some single step commands Laboratory Data (last 24 hrs) Reviewed at the EMR Conclusions/Impression: ESRD on HD MWF -HD today for metab clearance and UF. Will address mod azotema, hyperphos phatemia with HD Acute hypoxic respiratory failure and cardiapulmonary arrest unspecified. Hypotension, other -Unclear trigger other Influenza B positive infection on admission, underlying cardiomyopathy/valvular heart disease, arrthymia (EKG on the showed prolonged QRS, QTC and other). Currently stable and now off low dose pressor support. Cont low dose Midodrine Diastolic CHF, acute on chronic -CXR this past weekend with worsened pulm infiltrates, superimposed cardiogenic pulm edema -UF of 2L performed Wed, extubated successfully. Held additional HD/UF as BP was marginal, but removed another 2L Wed and will target another 2L today. CXR still with b/l infiltrates although clinically stable, O2 sats acceptable on RA. However, will cont to eval for additional UF this weekend to prevent any recurrent resp failure. Terry Packer MD, SHAYAN
--- NOTE | 2023-01-15 14:32 | PN ---
Date of Progress Note: 01/15/2023 Subjective: Patient was seen this morning for followup. No new complaints or problems reported by tiffanie santoyo staff. Yesterday afternoon, ICU nurse contacted me and informed me about low blood pressure w ith systolic blood pressure between 80-90 and at that time, I asked her to restart vasopressor medica tion, which was Levophed, and today when I saw the patient, nurse informed me that the patient's bloo d pressure got better and did not require any vasopressor medication after I had communicated with kathy nurse yesterday. This morning when I saw him, his systolic blood pressure was around 114-116 range . Patient's was present with her at bedside and vein pumper was also in the room. Patient mae childers have dialysis today. I did communicate with vein pumper regarding trying to remove as much fluid as we can to help with his pulmonary edema situation that we are noticing on the chest x-ray. The raffi randall is having some trouble swallowing as reported by nursing staff. He is also having confusion as noted while in ICU including today. Objective: Vital Signs: Reviewed. HEENT: Unremarkable. Lungs: Clear to auscultation. Heart: Sounds normal. Presence of systolic murmur unchanged. Abdomen: Soft. Bowel sounds normal. No guarding, rigidity, tenderness, distention. Extremities: No leg edema. Laboratory Data: White count 9, hemoglobin 11.6, platelets 107. Sodium 135, potassium 4.2, chloride 99, bicarb 25, BUN 53, creatinine 6.57, glucose 130. AST 138, ALT 373, alkaline phosphatase 127, to regulo bilirubin 0.9. Cortisol stimulation test was done today. Baseline cortisol was 22.1. In 30 min utes, it was 27.3; in 60 minutes, 35.8; and at 90 minutes, it was 35.1. Interpretation of this is no rmal cortisol stimulation test. Impression: 1.Pulmonary edema. 2.Aortic stenosis with aortic regurgitation. 3.Mitral regurgitation. 4.End-stage renal disease, on hemodialysis. 5.Pneumonia. 6.Anemia due to chronic kidney disease. 7.Thrombocytopenia. 8.Encephalopathy, metabolic and toxic. 9.Generalized weakness. 10.Debility. Plan: We will go ahead and continue current ceftriaxone. Continue to follow with vein pumper for d ialysis support and try to remove as much fluid as we can to help with the pulmonary edema problem. We will go ahead and continue heparin for DVT prophylaxis. We will continue to follow up on the plat elet count. No need for further intervention. Patient really has not ambulated since he has been in the hospital and significant decline in his overall condition we have seen with weakness and debilit y. I did have a long discussion with the patient's today. She understands that last 6-9 months patient has been in and out of hospital and really has not done well with overall decline in his hea lth and condition and she already has started having discussion with family member and informed me th at today she will have discussion with her children again and then she will make a final decision reg arding advance directives as we did talk about CPR defibrillation, ventilator support, etc. In the e vent of cardiopulmonary arrest, she is leaning towards do not resuscitate, but at this time, she has not made that decision for sure, but she will let us know soon as the decision is made as she discuss this with her children and she was made aware of the fact that until the decision is made, he will r emain full code, but soon as the decision is made, she will meet nursing staff or me, so we can place appropriate orders in the system and then we can assist her with out of hospital DNR paperwork. Neeraj johnson, he is stable for transfer out of ICU to regular room since he does not require vasopressor me dication. He is maintaining oxygen saturation 99% to 100% on 2 L nasal cannula oxygen and I will tra nsfer today to medical floor and for his mental health, it will be lot better for him to be in the re gular room and all these details were discussed with also. Overall prognosis is poor. For his difficulty swallowing, we will request consultation from speech therapist. NADIA/MODL Voice ID: [id number] Report ID: [id number]
[2023-01-15] MEDS: ATORVASTATIN 20 MG TAB PO SCH (16:27)
[2023-01-15] MEDS ORDERED: ALBUMIN HUMAN 25% 100 ML IV ONE (16:30)
--- NOTE | 2023-01-15 17:34 | PN ---
Date of Progress Note: 01/15/2023 Subjective: Seen at bedside, lying flat comfortably. No distress. No reported problems per staff. Review of Systems: No chest pain. No nausea, vomiting, diarrhea. All other systems reviewed are negative. Physical Examination: Vital Signs: Reviewed. Head and Neck: Pupils are equal, reactive to light. Intact eye movements. No JVD. No cervical lym phadenopathy. Neck: Supple. Thyroid is not enlarged. Lungs: Decreased breathing sounds bilaterally. No accessory muscle use or muscle retraction. Heart: Irregular with a systolic ejection murmur and diastolic murmur in the aortic area. Abdomen: Soft, nontender. Bowel sounds positive. No organomegaly. No masses or hernia. No rigidi ty or rebound. Extremities: No clubbing, cyanosis. Intact pulses. Skin: No rash. Neurologic: Alert, awake. No new focal deficits appreciated. Investigations: Labs were reviewed. Assessment And Recommendations: 1.Aortic valve disorder with severe regurgitation and moderate to severe aortic stenosis. Definitel y this needs to be addressed. Once the patient is clinically stable, he will need to have the aortic valve replaced. This will be worked up once the patient is stable and able to get out of the hospit al. 2.End-stage renal disease, on hemodialysis. 3.Pulmonary edema versus acute respiratory distress syndrome. Fluid management via dialysis. SR/MODL Voice ID: [id number] Report ID: [id number]
[2023-01-15] MEDS: MIRTAZAPINE 15 MG TAB PO SCH (21:49)
[2023-01-15] MEDS: METOPROLOL TAR 25 MG TAB PO SCH (22:40)
[2023-01-15] MEDS: APIXABAN 2.5 MG TABLET PO SCH (22:40)
[2023-01-16] MEDS: METOPROLOL TAR 25 MG TAB PO SCH ×2 (06:20→18:37)
[2023-01-16] MEDS: LEVOTHYROXINE SOD 0.05 MG TABLET PO SCH (06:20)
[2023-01-16 06:47] LABS: Albumin 3.2 g/dL (3.4-5.0); Bilirubin Total 0.9 mg/dL (0.2-1.0); Magnesium 2.3 mg/dL (1.6-2.4); Phosphorus 4.8 mg/dL (2.5-4.9); Potassium 4.5 mEq/L (3.5-5.1)
[2023-01-16] MEDS ORDERED: NA CHLORIDE 0.9% 0 ML ONE (08:30)
[2023-01-16] MEDS: Pantoprazole (granules) 40 MG/BLIST PACKET PO SCH (08:47)
[2023-01-16] MEDS: FOLIC ACID 1 MG TABLET PO SCH (08:47)
[2023-01-16] MEDS: GUAIFENESIN/CODEINE 5ML UCUP PO SCH ×4 (08:47→20:20)
[2023-01-16] MEDS: VITAMIN D 1000 UNIT TAB PO SCH (08:48)
[2023-01-16] MEDS: MIDODRINE HCL 5 MG TABLET PO SCH ×2 (08:48→20:21)
[2023-01-16] MEDS: Linaclotide [Linzess] 72 MCG Capsule PO SCH (08:48)
[2023-01-16] MEDS: NEPRO 1,000 ML BOT RTH SCH ×2 (08:48→20:21)
[2023-01-16] MEDS: APIXABAN 2.5 MG TABLET PO SCH ×2 (08:48→20:21)
[2023-01-16] MEDS: ASPIRIN EC 81 MG TAB PO SCH (08:48)
[2023-01-16] MEDS: allopurinoL 100 MG TAB PO SCH (08:48)
[2023-01-16] MEDS: CEFTRIAXONE 1,000 MG in NA CHLORIDE 0.9% 50 ML IVPB SCH ×2 (09:00→20:20)
--- NOTE | 2023-01-16 09:47 | PN ---
Date of Progress Note: 01/16/2023 Subjective: The patient was seen for followup, lying in bed, not in any distress. He was back in no rmal sinus rhythm. Last night around 10:30 p.m. or so, he went into atrial fibrillation with rapid v entricular rate and his heart rate was between 120 to 130. At that time, systolic blood pressure was around 120 or so. When nurse contacted me with that information, the patient was started on Eliquis 2.5 mg 2 times a day and metoprolol 12.5 mg 2 times a day, and first dose of both of these medicatio ns were given last night. He was getting heparin 5000 units subcutaneous injection every 12 hours fo r DVT prophylaxis so far for this admission and this particular heparin was discontinued when Eliquis was started. This morning when I saw him, he was eating breakfast and he was in sinus rhythm, hemod ynamically stable. Objective: Vital Signs: Reviewed. HEENT: Unremarkable. Lungs: Clear to auscultation. Heart: Sounds normal. Abdomen: Soft. Bowel sounds normal. No guarding, rigidity, tenderness, distention. Extremities: No leg edema. Laboratory Data: Sodium 137, potassium 4.5, chloride 105, bicarb 25, BUN 36, creatinine 4.86, glucos e 109, AST 99, ALT 296, alkaline phosphatase 119, total bilirubin 0.9. Impression: 1.Atrial fibrillation, paroxysmal. 2.End-stage renal disease, on hemodialysis. 3.Anemia due to chronic kidney disease. 4.Thrombocytopenia. 5.Pulmonary edema. 6.Aortic stenosis with aortic regurgitation. 7.Mitral regurgitation. 8.Generalized weakness. 9.Debility. 10.Pulmonary edema. Plan: We will go ahead and continue current Eliquis and metoprolol, continue current ceftriaxone. C ontinue to follow with wallpaper printer for dialysis port and the patient is still in ICU because there a re no beds on medical floor, but hopefully today as soon as the bed becomes available, we will be abl e to transfer him to medical floor. The patient is stable for transfer. NADIA/MODL Voice ID: [id number] Report ID: [id number]
[2023-01-16] MEDS ORDERED: MAGNESIUM HYDROXIDE 8% 30 ML PO ONE (10:00)
--- NOTE | 2023-01-16 12:25 | PN ---
Subjective: The patient is alert, looks comfortable currently. His is in the room with him. D enies any headache, nausea, vomiting. The patient did have a run of atrial fibrillation last night o r yesterday and was given heparin drip and has been started on Eliquis and low dose of metoprolol. B lood pressure seems stable. His dialysis was completed late last night. His volume status seems goo d. Blood pressure is on lower side. He does not have any edema right now. He is off oxygen and O2 sats are close to 100%. Lungs sound clear. Abdomen is soft. Extremities revealed no edema. Heart sounds are currently regular. Objective: Vital Signs: Vitals reviewed. The patient's vitals show blood pressure between 107 to 1 21 for systolic, diastolic at 32, O2 sats 95% to 100% on room air. The patient is afebrile. Lungs: Clear. Abdomen: Soft. Extremities: Revealed no edema. Laboratory Data: Reviewed. Labs from January 15 show hemoglobin, hematocrit of 11.6 and 37, WBC of 9, platelet counts of 107. Chemistry shows sodium 137, potassium 4.5, chloride 105, bicarb is 25, BUN i s 36, creatinine is 4.86. This is lab from today. Albumin is 3.2. Assessment And Plan: The patient with end-stage renal disease, currently looks comfortable and stabl e. Has been dialyzed with last dialysis treatment last night. The patient's dialysis schedule usual ly is Wednesday, Wednesday, Wednesday. Currently, he is improved with electrolytes looking reasonable. Hi s breathing is comfortable. His volume status is significantly better. His respiratory failure is i mproved. He is actually awaiting to go back to the floor with the DICTATION ENDS HERE /WILLIAM Voice ID: [id number] Report ID: [id number]
[2023-01-16] MEDS: ATORVASTATIN 20 MG TAB PO SCH (17:38)
[2023-01-16] MEDS: MIRTAZAPINE 15 MG TAB PO SCH (20:20)
[2023-01-17] MEDS: METOPROLOL TAR 25 MG TAB PO SCH ×2 (06:00→18:00)
[2023-01-17] MEDS: LEVOTHYROXINE SOD 0.05 MG TABLET PO SCH (06:33)
[2023-01-17 08:19] LABS: Albumin 3.3 g/dL (3.4-5.0); Bilirubin Total 0.9 mg/dL (0.2-1.0); Magnesium 2.5 mg/dL (1.6-2.4); Phosphorus 5.6 mg/dL (2.5-4.9); Potassium 4.8 mEq/L (3.5-5.1); Protein, Total 8.5 g/dL (6.4-8.2)
[2023-01-17] MEDS: CEFTRIAXONE 1,000 MG in NA CHLORIDE 0.9% 50 ML IVPB SCH ×2 (08:58→20:30)
[2023-01-17] MEDS: APIXABAN 2.5 MG TABLET PO SCH ×2 (08:59→20:31)
[2023-01-17] MEDS: allopurinoL 100 MG TAB PO SCH (08:59)
[2023-01-17] MEDS: MIDODRINE HCL 5 MG TABLET PO SCH ×2 (09:00→20:31)
[2023-01-17] MEDS: FOLIC ACID 1 MG TABLET PO SCH (09:00)
[2023-01-17] MEDS: ASPIRIN EC 81 MG TAB PO SCH (09:00)
[2023-01-17] MEDS: Linaclotide [Linzess] 72 MCG Capsule PO SCH (09:00)
[2023-01-17] MEDS: GUAIFENESIN/CODEINE 5ML UCUP PO SCH ×4 (09:00→20:31)
[2023-01-17] MEDS: VITAMIN D 1000 UNIT TAB PO SCH (09:00)
[2023-01-17] MEDS: NEPRO 1,000 ML BOT RTH SCH ×2 (09:05→20:31)
[2023-01-17] MEDS: Pantoprazole (granules) 40 MG/BLIST PACKET PO SCH (09:08)
--- NOTE | 2023-01-17 11:05 | PN ---
Date of Progress Note: 01/17/2023 Subjective: The patient was seen this morning for followup. No new complaints or problems reported by nursing staff. He was lying in bed, extremely weak. Yesterday, he did eat when nursing staff and were feeding him, and he does not have his teeth, so he will do better with a soft diet than a renal diet. He has not had a bowel movement in the last few days. Yesterday, a dose of milk of magnesia was given, but that has not resulted in any bowel movement. No abdominal pain, nausea, vomiting. Objective: Vital Signs: Reviewed. HEENT: Unremarkable. Lungs: Clear to auscultation. Heart: Sounds normal. Abdomen: Soft. Bowel sounds normal. No guarding, rigidity, tenderness, distention. Extremities: No leg edema. Laboratory Data: Sodium 136, potassium 4.8, chloride 104, bicarb 24, BUN 51, creatinine 6.27, glucose 128, AST 88, ALT 254, alkaline phosphatase 137, total bilirubin 0.9. Impression: 1. Pulmonary edema. 2. Pneumonia. 3. End-stage renal disease, on hemodialysis. 4. Anemia due to chronic kidney disease. 5. Paroxysmal atrial fibrillation. 6. Generalized weakness. 7. Debility. 8. Aortic stenosis with aortic regurgitation. 9. Mitral regurgitation. Plan: We will go ahead and continue current medication, continue current antibiotic which is ceftriaxone. Continue to follow with marker machine for dialysis support. The patient is on metoprolol 12.5 mg 2 times a day and Eliquis 2.5 mg 2 times a day for atrial fibrillation and we will continue that. Overall, his prognosis is poor. He has significant debility and generalized weakness and I did communicate with the patient's today who was outside in the waiting room and once again, we did discuss all the details. We discussed discharge planning. The patient is still in ICU because there is no bed available on the floor, so he is in ICU as overflow patient. He does not need any ICU care. Our plan is to possibly discharge to nursing facility this week. The patient's understands that she is not able to take care of him at home and she agrees with the [facility] facility placement and she was encouraged to communicate with Social Service regarding facility of her choice and she was informed that there is a very good possibility that the patient will end up staying at the [facility] facility either for a long time or for a period, but it will not be short-stay as I believe at this point. Dr. Reddy's last visit note reviewed and the patient's condition obviously currently is extremely poor and he is not in any shape or condition to undergo any treatment for his valvular heart disease and understands that there is a good possibility that there is a miraculous recovery in the future, he will not be able to undergo any such procedure in the future. also informed me that she did communicate with her children and they all are in agreement that in the event of cardiopulmonary arrest, they do not want any heroic measures like CPR, electric shock or life support and order for do not resuscitate was confirmed with the patient's today and such order was placed in the chart and I also encouraged her to go ahead and have out of hospital DNR order in place with help of social service. Nurse was advised to give 1 dose of Dulcolax rectal suppository today. NADIA/MODL Voice ID: [id number] Report ID: [id number] TASHI
[2023-01-17] MEDS ORDERED: BISACODYL 10 MG RECTAL SUPP PR ONE (14:10)
--- NOTE | 2023-01-17 14:17 | PN ---
Date of Progress Note: 01/17/2023 Subjective: The patient is seen in intensive care unit in room 3. He is on hold, awaiting a bed on the floor, clinically looks stable, much better this morning. Had low blood pressure earlier and the refore his blood pressure medications were held. He is clinically looking okay. Otherwise, denies a ny discomfort. is by the bedside. Objective: VITAL SIGNS: Blood pressure is stable at 127/33, pulse is 69 and regular, respirations a round 14-16 and comfortable. He is afebrile with temperature last recorded at 98.4, O2 sats are 100% on room air. Lungs: Clear anteriorly. Abdomen: Soft. Extremities: Reveal no edema. On his left arm, the arm AV fistula seems to have a good thrill and b ruit, cleanly dressed. Heart: Sounds are regular. Laboratory Data: Reviewed. Labs show WBC count of 9, hemoglobin 11.6, hematocrit 37, platelet count of 107. This is from January 15. Chemistries from today show sodium 136, potassium 4.8, chloride 10 4, bicarb 24, BUN 51, creatinine 6.27, calcium 9.7, phosphorus 5.6, magnesium 2.5, albumin is 3.3. Assessment And Plan: The patient with dialysis dependence, currently stable, not in atrial fibrillat ion at this point, looks comfortable, breathing comfortably. Does not have any fever. WBC counts we re reasonable. He is being monitored in the ICU currently as he is overflow and floor beds are not a vailable. His condition from the renal point of view seems relatively stable. Volume status seems reasonable. We will plan to dialyze him tomorrow using the left arm AV fistula. Discussed with the . /WILLIAM Voice ID: [id number] Report ID: [id number]
[2023-01-17] MEDS: ATORVASTATIN 20 MG TAB PO SCH (17:26)
[2023-01-17] MEDS: MIRTAZAPINE 15 MG TAB PO SCH (20:31)
[2023-01-18 05:44] LABS: Albumin 2.7 g/dL (3.4-5.0); Bilirubin Total 0.8 mg/dL (0.2-1.0); Magnesium 2.5 mg/dL (1.6-2.4); Phosphorus 6.2 mg/dL (2.5-4.9); Protein, Total 7.2 g/dL (6.4-8.2)
[2023-01-18 06:25] VITALS: BMI 19.2
[2023-01-18] MEDS: LEVOTHYROXINE SOD 0.05 MG TABLET PO SCH (06:45)
[2023-01-18] MEDS: METOPROLOL TAR 25 MG TAB PO SCH ×2 (06:45→17:47)
[2023-01-18] MEDS ORDERED: BISACODYL 10 MG RECTAL SUPP PR ONE (06:48)
--- NOTE | 2023-01-18 07:53 | RAD REPORT ---
EXAM DESCRIPTION: [facility] Single View01/18/2023 7:38 am CLINICAL HISTORY: Shortness breath COMPARISON: January 14, 2023 FINDINGS: Partial resolution in diffuse bilateral pulmonary opacities. Cardiomegaly IMPRESSION: Partial resolution in pulmonary edema
[2023-01-18] MEDS: MIDODRINE HCL 5 MG TABLET PO SCH ×2 (08:24→20:54)
[2023-01-18] MEDS: FOLIC ACID 1 MG TABLET PO SCH (08:24)
[2023-01-18] MEDS: APIXABAN 2.5 MG TABLET PO SCH ×2 (08:24→20:09)
[2023-01-18] MEDS: GUAIFENESIN/CODEINE 5ML UCUP PO SCH ×4 (08:24→20:09)
[2023-01-18] MEDS: allopurinoL 100 MG TAB PO SCH (08:24)
[2023-01-18] MEDS: VITAMIN D 1000 UNIT TAB PO SCH (08:24)
[2023-01-18] MEDS: CEFTRIAXONE 1,000 MG in NA CHLORIDE 0.9% 50 ML IVPB SCH ×2 (08:25→20:10)
[2023-01-18] MEDS: Pantoprazole (granules) 40 MG/BLIST PACKET PO SCH (08:25)
[2023-01-18] MEDS: Linaclotide [Linzess] 72 MCG Capsule PO SCH (09:00)
[2023-01-18] MEDS: ASPIRIN EC 81 MG TAB PO SCH (09:00)
--- NOTE | 2023-01-18 10:36 | P.PN ---
Date of Service: 01/18/23 Vital Signs Temp Pulse Resp BP Pulse Ox 97.3 F 74 16 124/42 L 95 01/18/23 08:00 01/18/23 08:00 01/18/23 08:00 01/18/23 08:00 01/18/23 08:00 Medications Acetaminophen (Acetaminophen 500 Mg Tab) 500 mg PO Q6H PRN PRN Reason: TEMP > 100' F Last Admin: 01/09/23 21:18 Dose: 500 mg Allopurinol (Allopurinol 100 Mg Tab) 100 mg PO DAILY [facility] Last Admin: 01/18/23 08:24 Dose: 100 mg Apixaban (Apixaban 2.5 Mg Tablet) 2.5 mg PO BID [facility] Last Admin: 01/18/23 08:24 Dose: 2.5 mg Aspirin (Aspirin Ec 81 Mg Tab) 81 mg PO DAILY [facility] Last Admin: 01/18/23 09:00 Dose: Not Given Atorvastatin Calcium (Atorvastatin 20 Mg Tab) 20 mg PO DAILY AT SUPPER [facility] Last Admin: 01/17/23 17:26 Dose: 20 mg Cholecalciferol (Vitamin D 1000 Unit Tab) 1,000 unit PO DAILY [facility] Last Admin: 01/18/23 08:24 Dose: 1,000 unit Enteral Nutritional Formula (Nepro 1,000 Ml Bot) 240 ml RTH BID [facility] Last Admin: 01/17/23 20:31 Dose: 240 ml Folic Acid (Folic Acid 1 Mg Tablet) 1 mg PO DAILY [facility] Last Admin: 01/18/23 08:24 Dose: 1 mg Guaifenesin/Codeine Phosphate (Guaifenesin/Codeine 5ml Ucup) 10 ml PO QID [facility] Last Admin: 01/18/23 08:24 Dose: 10 ml Heparin Sodium (Porcine) (Heparin 1,000 Unit/Ml Vial) 2,000 unit IV EVERY HD PRN PRN Reason: Prevent HD lines clotting Last Admin: 01/15/23 17:42 Dose: 2,000 unit Home Med (Linaclotide [Linzess]) 1 mcg PO DAILY [facility] Last Admin: 01/18/23 09:00 Dose: Not Given Ceftriaxone Sodium 1,000 mg/ (Sodium Chloride) 50 mls @ 100 mls/hr IVPB Q12HR [facility]; Protocol Last Admin: 01/18/23 08:25 Dose: 100 mls/hr Sodium Chloride (Sodium Chloride) 250 mls @ 999 mls/hr IV Q15M PRN PRN Reason: HYPOTENSION Last Admin: 01/10/23 12:49 Dose: 250 mls Levothyroxine Sodium (Levothyroxine Sod 0.05 Mg Tablet) 0.05 mg PO DAILYAC [facility] Last Admin: 01/18/23 06:45 Dose: 0.05 mg Metoprolol Tartrate (Metoprolol Tar 25 Mg Tab) 12.5 mg PO BID 6AM 6PM [facility] Last Admin: 01/18/23 06:45 Dose: 12.5 mg Midodrine (Midodrine Hcl 5 Mg Tablet) 5 mg PO BID [facility] Last Admin: 01/18/23 08:24 Dose: 5 mg Mirtazapine (Mirtazapine 15 Mg Tab) 7.5 mg PO BEDTIME [facility] Last Admin: 01/17/23 20:31 Dose: 7.5 mg Ondansetron HCl (Ondansetron 4 Mg/2 Ml Vial) 4 mg IV Q6H PRN PRN Reason: NAUSEA / VOMITING Last Admin: 01/09/23 11:03 Dose: 4 mg Pantoprazole Sodium (Pantoprazole (Granules) 40 Mg/Blist Packet) 40 mg PO DAILY [facility] Last Admin: 01/18/23 08:25 Dose: 40 mg Sodium Chloride (Flush Normal Saline 10 Ml) 10 ml IV BID [facility] Last Admin: 01/17/23 20:31 Dose: 10 ml Triamcinolone Acetonide (Triamcinolone Acet 0.1% Cream 80 Gm) 0 appl TOP BID PRN PRN Reason: RASH Last Admin: 01/13/23 07:50 Dose: 1 appl Microbiology Results 01/08/23 20:15 Blood - Blood Aerobic Blood Culture - Final No growth in 5 days. 01/08/23 20:15 Blood - Blood Anaerobic Blood Culture - Final No growth in 5 days. 01/08/23 20:22 Blood - Blood Aerobic Blood Culture - Final No growth in 5 days. 01/08/23 20:22 Blood - Blood Anaerobic Blood Culture - Final No growth in 5 days. 01/08/23 20:21 Nasopharnyx Influenza Type A Antigen Screen - Final 01/08/23 20:21 Nasopharnyx Influenza Type B Antigen Screen - Final Assessment/ Plan: Nephrology No dyspnea No chest pain No acute events overnight Limited IH ROS due to AMS Vitals, medications, blood work and imaging reviewed in the chart NAD. MMM. Cachectic. Diminished. S1S2. Abd soft. No C/C/E. Somnolent. No rash. ESRD on HD -Acute HD today Chronic Hypotension -Continue Midodrine Diastolic CHF, chronic -Low sodium diet -Acute UF with HD Anemia in chronic illness -Retacrit prn Paroxysmal Afib -Continue Eliquis -Continue Metoprolol
[2023-01-18] MEDS ORDERED: ALBUMIN HUMAN 25% 50 ML IV ONE (10:45)
[2023-01-18] MEDS: ALBUMIN HUMAN 25% 100 ML IV ONE ×2 (11:00→11:40)
--- NOTE | 2023-01-18 12:59 | P.PN ---
Date of Service: 01/18/23 Error Assessment/ Plan: Error
[2023-01-18] MEDS: ATORVASTATIN 20 MG TAB PO SCH (17:47)
[2023-01-18] MEDS: NEPRO 1,000 ML BOT RTH SCH ×2 (17:47→20:09)
--- NOTE | 2023-01-18 20:08 | PN ---
Date of Progress Note: 01/18/2023 Subjective: The patient was seen this morning for followup. No new complaints or problems reported by the patient. He was sleeping, lying in bed, not in any distress. Objective: Vital Signs: Reviewed. HEENT: Unremarkable. Lungs: Clear to auscultation. Heart: Sounds normal. Abdomen: Soft. Bowel sounds normal. No guarding, rigidity, tenderness, distention. Extremities: No leg edema. Laboratory Data: Sodium 136, potassium 5, chloride 104, bicarb 22, BUN 68, creatinine 7.43, glucose 142, total bilirubin 0.8, AST 45, ALT 168, alkaline phosphatase 105. Impression: 1.Pulmonary edema. 2.Pneumonia. 3.Hypertension. 4.Anemia due to chronic kidney disease. 5.Debility. 6.Generalized weakness. Plan: We will go ahead and continue to follow with manager patient. Continue current Eliquis for atria l fibrillation. The patient is in sinus rhythm now. We will continue metoprolol per order. Continu e to follow with manager patient. Social Service is assisting the patient and family with discharge ne nning and as soon as that is arranged, plan is to discharge him. We will get a chest x-ray done today and follow up on result. NADIA/MODL Voice ID: [id number] Report ID: [id number]
[2023-01-18] MEDS: MIRTAZAPINE 15 MG TAB PO SCH (20:09)
[2023-01-19] MEDS: ACETAMINOPHEN 500 MG TAB PO PRN (00:25)
[2023-01-19] MEDS: METOPROLOL TAR 25 MG TAB PO SCH ×2 (05:49→17:40)
[2023-01-19] MEDS: LEVOTHYROXINE SOD 0.05 MG TABLET PO SCH (05:49)
[2023-01-19 06:01] LABS: Absolute Lymphocytes (CBC) 1.2 K/uL (0.7-4.9); Hematocrit 33.6 % (39.6-49.0); Lymphocytes % 11.3 % (15.3-44.8); MCV 93.5 fL (80-100); MPV 9.7 fL (7.6-11.3)
[2023-01-19 07:21] LABS: Blood Morphology Comment NOTED (NOT SEEN); White Blood Cell Scan OK (OK)
[2023-01-19 07:22] LABS: Anisocytosis 1+; Macrocytosis 1+; Platelet Estimate DECR
[2023-01-19] MEDS: Linaclotide [Linzess] 72 MCG Capsule PO SCH (09:00)
[2023-01-19] MEDS ORDERED: ASPIRIN 81 MG CHEWABLE TABLET PO SCH (09:00)
[2023-01-19] MEDS: APIXABAN 2.5 MG TABLET PO SCH ×2 (09:57→21:01)
[2023-01-19] MEDS: FOLIC ACID 1 MG TABLET PO SCH (09:57)
[2023-01-19] MEDS: NEPRO 1,000 ML BOT RTH SCH (09:58)
[2023-01-19] MEDS: GUAIFENESIN/CODEINE 5ML UCUP PO SCH ×4 (09:59→21:01)
[2023-01-19] MEDS: VITAMIN D 1000 UNIT TAB PO SCH (09:59)
[2023-01-19] MEDS: Pantoprazole (granules) 40 MG/BLIST PACKET PO SCH (09:59)
[2023-01-19] MEDS: allopurinoL 100 MG TAB PO SCH (09:59)
[2023-01-19] MEDS: MIDODRINE HCL 5 MG TABLET PO SCH ×2 (09:59→21:02)
[2023-01-19] MEDS: NEPRO SHAKE 237 ML CAN PO SCH ×2 (14:00→21:02)
[2023-01-19] MEDS: ATORVASTATIN 20 MG TAB PO SCH (17:12)
[2023-01-19] MEDS: MIRTAZAPINE 15 MG TAB PO SCH (21:01)
--- NOTE | 2023-01-19 21:55 | P.PN ---
Date of Service: 01/19/23 Vital Signs Temp Pulse Resp BP Pulse Ox 97.5 F 75 16 139/50 L 94 01/19/23 20:00 01/19/23 20:00 01/19/23 20:00 01/19/23 20:00 01/19/23 20:00 Medications Acetaminophen (Acetaminophen 500 Mg Tab) 500 mg PO Q6H PRN PRN Reason: TEMP > 100' F Last Admin: 01/19/23 00:25 Dose: 500 mg Allopurinol (Allopurinol 100 Mg Tab) 100 mg PO DAILY [facility] Last Admin: 01/19/23 09:59 Dose: 100 mg Apixaban (Apixaban 2.5 Mg Tablet) 2.5 mg PO BID [facility] Last Admin: 01/19/23 21:01 Dose: 2.5 mg Atorvastatin Calcium (Atorvastatin 20 Mg Tab) 20 mg PO DAILY AT SUPPER [facility] Last Admin: 01/19/23 17:12 Dose: 20 mg Cholecalciferol (Vitamin D 1000 Unit Tab) 1,000 unit PO DAILY [facility] Last Admin: 01/19/23 09:59 Dose: 1,000 unit Enteral Nutritional Formula (Nepro Shake 237 Ml Can) 237 ml PO TID [facility] Last Admin: 01/19/23 21:02 Dose: 237 ml Folic Acid (Folic Acid 1 Mg Tablet) 1 mg PO DAILY [facility] Last Admin: 01/19/23 09:57 Dose: 1 mg Guaifenesin/Codeine Phosphate (Guaifenesin/Codeine 5ml Ucup) 10 ml PO QID [facility] Last Admin: 01/19/23 21:01 Dose: 10 ml Heparin Sodium (Porcine) (Heparin 1,000 Unit/Ml Vial) 2,000 unit IV EVERY HD PRN PRN Reason: Prevent HD lines clotting Last Admin: 01/18/23 11:37 Dose: 2,000 unit Home Med (Linaclotide [Linzess]) 1 mcg PO DAILY [facility] Last Admin: 01/19/23 09:00 Dose: Not Given Sodium Chloride (Sodium Chloride) 250 mls @ 999 mls/hr IV Q15M PRN PRN Reason: HYPOTENSION Last Admin: 01/10/23 12:49 Dose: 250 mls Levothyroxine Sodium (Levothyroxine Sod 0.05 Mg Tablet) 0.05 mg PO DAILYAC [facility] Last Admin: 01/19/23 05:49 Dose: 0.05 mg Metoprolol Tartrate (Metoprolol Tar 25 Mg Tab) 12.5 mg PO BID 6AM 6PM [facility] Last Admin: 01/19/23 17:40 Dose: 12.5 mg Midodrine (Midodrine Hcl 5 Mg Tablet) 5 mg PO BID [facility] Last Admin: 01/19/23 21:02 Dose: 5 mg Mirtazapine (Mirtazapine 15 Mg Tab) 7.5 mg PO BEDTIME [facility] Last Admin: 01/19/23 21:01 Dose: 7.5 mg Ondansetron HCl (Ondansetron 4 Mg/2 Ml Vial) 4 mg IV Q6H PRN PRN Reason: NAUSEA / VOMITING Last Admin: 01/09/23 11:03 Dose: 4 mg Pantoprazole Sodium (Pantoprazole (Granules) 40 Mg/Blist Packet) 40 mg PO DAILY [facility] Last Admin: 01/19/23 09:59 Dose: 40 mg Sodium Chloride (Flush Normal Saline 10 Ml) 10 ml IV BID [facility] Last Admin: 01/19/23 21:02 Dose: 10 ml Triamcinolone Acetonide (Triamcinolone Acet 0.1% Cream 80 Gm) 0 appl TOP BID PRN PRN Reason: RASH Last Admin: 01/13/23 07:50 Dose: 1 appl Microbiology Results 01/08/23 20:15 Blood - Blood Aerobic Blood Culture - Final No growth in 5 days. 01/08/23 20:15 Blood - Blood Anaerobic Blood Culture - Final No growth in 5 days. 01/08/23 20:22 Blood - Blood Aerobic Blood Culture - Final No growth in 5 days. 01/08/23 20:22 Blood - Blood Anaerobic Blood Culture - Final No growth in 5 days. 01/08/23 20:21 Nasopharnyx Influenza Type A Antigen Screen - Final 01/08/23 20:21 Nasopharnyx Influenza Type B Antigen Screen - Final Assessment/ Plan: Nephrology No dyspnea No chest pain No acute events overnight He is asking for his Limited IH ROS due to AMS Vitals, medications, blood work and imaging reviewed in the chart NAD. MMM. Cachectic. Normal resp effort. S1S2. Abd soft. No C/C/E. Awake. No rash. Normal speech. ESRD on HD -HD MWF Chronic Hypotension -Continue Midodrine Diastolic CHF, chronic -Low sodium diet -Acute UF with HD Anemia in chronic illness -Retacrit prn Paroxysmal Afib -Continue Eliquis -Continue Metoprolol All Active Problems Respiratory failure (Acute) Anemia (Acute 07/09/14) Anemia (Acute 01/26/18) Weakness (Acute) Abnormal chest x-ray (Chronic) Acute renal failure (Chronic 07/09/14) Diabetes mellitus (Chronic 07/09/14) FUO (fever of unknown origin) (Chronic) Hypertension (Chronic 07/09/14) Lupus (systemic lupus erythematosus) (Chronic 07/09/14)
--- NOTE | 2023-01-19 22:20 | PN ---
Date of Progress Note: 01/19/2023 Subjective: The patient was seen this morning for followup. No new complaints or problems reported by him. Lying in bed, not in any distress. Objective: Vital Signs: Reviewed. HEENT: Unremarkable. Lungs: Clear to auscultation. Heart: Sounds normal. Abdomen: Soft. Bowel sounds normal. No guarding, rigidity, tenderness, or distention. Extremities: No leg edema. Laboratory Data: White count 10.4, hemoglobin 10.5, and platelets 90. Impression: 1.Pulmonary edema. 2.Pneumonia. 3.End-stage renal disease, on hemodialysis. 4.Thrombocytopenia. 5.Anemia due to chronic kidney disease. 6.Encephalopathy, toxic and metabolic. 7.Generalized weakness. 8.Debility. Plan: We will go ahead and continue current medications. The patient has received adequate number o f days of IV antibiotic, which is ceftriaxone and we will discontinue that now. 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 His pulmonary edema problem is improving. Social Service is assisting the patient and family with placement to [facility] facility and once that is arranged , plan is to discharge him. Out of hospital DNR paperwork was signed this morning. We will continue midodrine, metoprolol, and Eliquis per order. Discontinue aspirin. NADIA/MODL Voice ID: [id number] Report ID: [id number]
[2023-01-20] MEDS: METOPROLOL TAR 25 MG TAB PO SCH ×2 (06:43→18:16)
[2023-01-20] MEDS: LEVOTHYROXINE SOD 0.05 MG TABLET PO SCH (06:43)
[2023-01-20] MEDS: Linaclotide [Linzess] 72 MCG Capsule PO SCH (09:00)
[2023-01-20] MEDS: FOLIC ACID 1 MG TABLET PO SCH (09:00)
[2023-01-20] MEDS: VITAMIN D 1000 UNIT TAB PO SCH (09:00)
[2023-01-20] MEDS: Pantoprazole (granules) 40 MG/BLIST PACKET PO SCH (09:00)
[2023-01-20] MEDS: APIXABAN 2.5 MG TABLET PO SCH (09:00)
[2023-01-20] MEDS: GUAIFENESIN/CODEINE 5ML UCUP PO SCH ×3 (09:00→18:21)
[2023-01-20] MEDS: MIDODRINE HCL 5 MG TABLET PO SCH (09:00)
[2023-01-20] MEDS: NEPRO SHAKE 237 ML CAN PO SCH ×2 (09:00→14:00)
[2023-01-20] MEDS: allopurinoL 100 MG TAB PO SCH (09:00)
[2023-01-20] MEDS ORDERED: MEDIHONEY 44 ML TOPICAL TUBE TOP SCH (09:00)
--- NOTE | 2023-01-20 09:41 | CON ---
Date of Consultation: 01/20/2023 Reason For Consultation: Sacral decubitus. History Of Present Illness: The patient is a 77-year-old gentleman, who was admitted approximately 1 0 to 11 days ago with influenza A with pulmonary edema, abdominal pain, and has been in the hospital . In the meantime, the patient developed sacral decubitus. There is no purulent discharge . No fever or chills. No surrounding erythema, warmth, and edema per the caretakers. Review of Systems: Otherwise unremarkable. DICTATION ENDS HERE /MODL Voice ID: [id number] Report ID: [id number]
[2023-01-20] MEDS ORDERED: MANNITOL 25% 12.5 GM/50 ML VIAL IV PRN (10:00)
[2023-01-20 10:37] VITALS: O2SAT 95
[2023-01-20 15:04] LABS: SARS-CoV-2 Antigen Rapid Res Positive (Negative)
--- NOTE | 2023-01-20 15:36 | P.PN ---
Nephrology note (S) Seen on HD, pt appears lethargic but remaining hemodynamically stable on treatment, speaking to his earlier, pt was less restless and did eat some breakfast but remains confused with it being difficult to make out what he is saying at times (O) Vitals reviewed in the EMR General: Other (Cachectic, chronically ill appearing). Extubated HEENT: Atraumatic, Normocephalic, LFNC Neck: Supple Respiratory: Poor resp effort, no wheezes/rhonchi on anterior auscultation Cardiovascular: Regular rate/rhythm Gastrointestinal: Soft and benign (Scaphoid), No tenderness Musculoskeletal: Other (Muscle mass loss), Lt UE AVF Integumentary: No tenderness/swelling. Not examined personally for sacral decubitus Neurological: Lethargic, sleeping Laboratory Data (last 24 hrs) Reviewed at the EMR Conclusions/Impression: ESRD on HD MWF -HD today for metab clearance and UF. Acute hypoxic respiratory failure and cardiapulmonary arrest unspecified > 1 week ago. Hypotension, other -Unclear trigger other Influenza B positive infection on admission, underlying cardiomyopathy/valvular heart disease, arrthymia (EKG on the showed prolonged QRS, QTC and other). Currently stable although requiring Albumin/Mannitol support during HD. Cont low dose Midodrine Diastolic CHF, acute on chronic -With additional UF session(s) last week, last CXR on the showed some improvement in infiltrates/pulm edema, cont to monitor closely Terry Packer MD, SHAYAN
[2023-01-20 16:56] VITALS: BP 164/67; TEMP 98
[2023-01-20] MEDS: ATORVASTATIN 20 MG TAB PO SCH (18:16)
--- NOTE | 2023-01-20 19:19 | EKG ---
Test Date: 2023-01-15 Test Time: 22:16:02 [employer] Sales Representative: EDMOND MEASUREMENT RESULTS: Intervals: Rate: 122 NV: 352 QRSD: 120 QT: 370 QTc: 527 [place]: P: NV: 352 QRS: -49 T: 101 INTERPRETIVE STATEMENTS: Sinus tachycardia with 1st degree AV block Left anterior fascicular block Left ventricular hypertrophy with QRS widening ST & T wave abnormality, consider lateral ischemia Abnormal ECG Compared to ECG 01/10/2023 11:47:18 First degree AV block now present Left ventricular hypertrophy now present ST (T wave) deviation now present Possible ischemia now present Right bundle-branch block no longer present Bifascicular block no longer present Electronically Signed On 01-20-23 19:12:49 CDT by Shay Redyd
--- NOTE | 2023-01-20 22:14 | DS ---
Date of Discharge: 01/20/2023 Disposition: Discharged to go to [facility]. Physical Examination: HEENT: Unremarkable. Lungs: Clear to auscultation. Heart: Sounds normal. Abdomen: Soft. Bowel sounds normal. No guarding, rigidity, tenderness, distention. Extremities: No leg edema. Laboratory Data: Last chemistry from 01/18/2023: Sodium 136, potassium 5, chloride 104, bicarb 22, BUN 68, creatinine 7.43, glucose 142. AST 45, ALT 168, alkaline phosphatase 105, total bilirubin 0.8 . Last CBC from yesterday: White count 10.4, hemoglobin 10.5, and a platelet count of 90. Discharge Medications And Instructions: Atorvastatin 20 mg daily; Linzess 72 mcg daily; levothyroxin e 50 mcg daily; pantoprazole 40 mg daily; Eliquis 2.5 mg daily; metoprolol 12.5 mg 2 times a day, hol d if systolic blood pressure less than 110 or pulse less than 60. Fall precautions. 1.Consult Physical therapy and Occupational therapy. 2.Go for hemodialysis on a regular basis. 3.Midodrine 5 mg 2 times a day, give dose at 7:00 a.m. and 2:00 p.m. 4.Folic acid 1 mg daily. 5.Allopurinol 100 mg daily. 6.Air mattress, change position from [id number] every 2 hours. 7.Decubitus care as per Dr. Hughes. 8.Follow up with Dr. [facility] next week. Hospital Course: A 77-year-old very pleasant male patient admitted to the hospital after he came int o emergency room complaining of cough, body ache, and right upper quadrant abdominal pain. Please se e dictated H and P for more information. Patient had influenza A with respiratory manifestation. Wh en he came into emergency room, along with that he had pulmonary edema and he was admitted to the [facility]. Agency Appointments Supervisor was consulted for his dialysis support. Patient received hemodialysis for his e nd-stage renal disease and also to help with pulmonary edema. He received IV antibiotic, which was c eftriaxone from the time of admission until just few days ago. We discontinued ceftriaxone after get ting adequate therapy for his pneumonia. He received Tamiflu 75 mg on first day when he came to [facility] room and then he received 2 more doses of Tamiflu 30 mg each time of dialysis and softer total 3 doses of Tamiflu. His therapy was completed for influenza and it was discontinued. While he was o n medical floor, all of a sudden he had episode of cardiopulmonary arrest, required CPR and medicatio ns and he was intubated and was brought to ICU. He remained in ICU for several days. His blood pres sure was low in ICU and required vasopressor medication and later on we were able to successfully dis continue his vasopressor medication. He was extubated successfully day after he had cardiopulmonary arrest and he maintained adequate oxygenation without any respiratory distress. He was started on mi dodrine and he has maintained adequate and normal blood pressure most of the time in ICU. We transfe rred him out of ICU to regular room. He stayed in ICU for few days as an overflow patient since we d id not have any bed available and once bed was available, he was transferred to the regular room wher e he has remained stable. Physical Therapy was consulted during this hospital stay. He was noted to have a small area of stage II decubitus on his right inner buttock region and this was examined tokay leyva. This was about 2 cm in size with loss of superficial skin. No surrounding edema or induration. Dr. Hughes from General Surgery was consulted for wound care management. Patient has been on air tianna ress. His appetite has gone down significantly and he has been bedbound lately, so he is at high ris k of decubitus ulcer type of problem and all the details were discussed with . also informe d me about advance directive status after she communicated with children. Family made decision of do not resuscitate and out of hospital DNR form was also signed for the patient. Patient's insurance [facility] originally denied senior living facility placement and today I was notified about it and I d id communicate with patient's insurance company today and after provided details, physician at [employer] provided approval for patient to go to senior living facility. COVID test was done [facility] today and that came back positive, but the patient does not have any sy mptoms related to COVID, so [facility] did [facility] today and patient was transferred in stable c ondition later this evening. Final Diagnoses: 1.Influenza A with respiratory manifestation. 2.Pulmonary edema. 3.Acute respiratory failure with hypoxia. 4.Cardiac arrest. 5.Toxic encephalopathy. 6.Metabolic encephalopathy. 7.Thrombocytopenia. 8.Anemia due to chronic kidney disease. 9.End-stage renal disease, on hemodialysis. 10.Chronic diastolic heart failure. 11.Chronic right upper quadrant abdominal pain. 12.Pulmonary nodule. 13.Hypertension. 14.Type 2 diabetes mellitus with chronic kidney disease. 15.Hyperlipidemia. 16.Hypothyroidism. 17.Decubitus ulcer, stage II, right buttock. NADIA/MODL Voice ID: [id number] Report ID: [id number]
== END 2023-01-20 19:20 | DRG 208 ==
LOC: ER 19:27 → ERHOLD 23:48 → 4TH 01-09 07:36 → 3RD-ICU 01-10 12:00 → 4TH 01-18 20:24
PROVIDERS: ADMIT Internal Medicine; ATTEND Internal Medicine
PROC: 5A1945Z Respiratory Ventilation, 24-96 Consecutive Hours (ICD-10-PCS; principal; 2023-01-10)
PROC: 0BH17EZ Insertion of Endotracheal Airway into Trachea, Via Natural or Artificial Opening (ICD-10-PCS; 2023-01-10)
PROC: 5A12012 Performance of Cardiac Output, Single, Manual (ICD-10-PCS; 2023-01-10)
PROC: 06HY33Z Insertion of Infusion Device into Lower Vein, Percutaneous Approach (ICD-10-PCS; 2023-01-10)
DX: U07.1 COVID-19 (principal); J12.82 Pneumonia due to coronavirus disease 2019; J10.08 Influenza due to other identified influenza virus with other specified pneumonia; I50.33 Acute on chronic diastolic (congestive) heart failure; N18.6 End stage renal disease; J96.01 Acute respiratory failure with hypoxia; I46.9 Cardiac arrest, cause unspecified; G92.8 Other toxic encephalopathy; I38 Endocarditis, valve unspecified; I24.8 Other forms of acute ischemic heart disease; R64 Cachexia; Z68.1 Body mass index [BMI] 19.9 or less, adult; I13.2 Hypertensive heart and chronic kidney disease with heart failure and with stage 5 chronic kidney disease, or end stage renal disease; I42.9 Cardiomyopathy, unspecified; E11.22 Type 2 diabetes mellitus with diabetic chronic kidney disease; D63.1 Anemia in chronic kidney disease; E78.5 Hyperlipidemia, unspecified; D69.6 Thrombocytopenia, unspecified; I48.0 Paroxysmal atrial fibrillation; I95.1 Orthostatic hypotension; E03.9 Hypothyroidism, unspecified; M10.9 Gout, unspecified; L89.312 Pressure ulcer of right buttock, stage 2; K21.9 Gastro-esophageal reflux disease without esophagitis; R91.8 Other nonspecific abnormal finding of lung field; Z66 Do not resuscitate; Z78.1 Physical restraint status; Z99.2 Dependence on renal dialysis; Z79.01 Long term (current) use of anticoagulants; Z86.73 Personal history of transient ischemic attack (TIA), and cerebral infarction without residual deficits; Z90.49 Acquired absence of other specified parts of digestive tract; Z79.82 Long term (current) use of aspirin; Z79.890 Hormone replacement therapy; Z79.899 Other long term (current) drug therapy
CPT/HCPCS: 36415; 36600; 71045; 71250; 74018; 74176; 80048; 80053; 82024; 82533; 82805; 82947; 83605; 83735; 83880; 84100; 84145; 84484; 85025; 85610; 85730; 87040; 87340; 87804; 87811; 90935; 92526; 92610; 92950; 93005; 93306; 94002; 94760; 96374; 96375; 97110; 97163; 97530; 99285; A4216; J0171; J0461; J0696; J0834; J1644; J1940; J2150; J2405; J3010; J7050; J7060; P9047